=== PATIENT | male | born 1960 | race Caucasian/White ===

== ENCOUNTER → 2018-03-16 15:44 | Outpatient (CLI) | payer MEDICARE, SELFPAY ==
[2018-03-16 17:19] LABS: Absolute Neutrophil Count 2.9 X10^3/uL (2.0-7.7); Basophil# 0.04 X10^3/uL; Basophil% 0.6 % (0-1); Eosinophil# 0.33 X10^3/uL; Eosinophils% 5.3 % (0-5); Hematocrit 38.9 % (40-54); Hemoglobin 13.1 g/dl (13.0-16.5); Lymphocyte % 36.8 % (19-41); Mean Corp Hgb Conc 33.7 g/gl (32-36); Mean Corpuscular Hgb 32.7 pg (27.0-32.0); Mean Platelet Vol. 8.7 fl (6.2-12.0); Monocyte# 0.63 X10^3/uL; Monocyte% 10.1 % (0-10); Neutrophil # 2.94 X10^3/uL (2.7-7.7); Platelet Count 292 K/mm3 (150-450); RBC Distribution Width CV 13.4 % (11.6-14.6); RBC Distribution Width SD 47.7 fl (35.1-43.9); Red Blood Count 4.01 M/mm3 (4.6-6.2); White Blood Count 6.3 K/mm3 (4.4-11.0)
[2018-03-16 17:23] LABS: POSITIVE COUNT NO; POSITIVE DIFFERENTIAL NO; POSITIVE MORPHOLOGY NO
[2018-03-16 18:00] LABS: ALB/GLOB Ratio 0.8 RATIO (0.9-2.4); AST(SGOT) 26 U/L (15-37); Alanine Aminotransfer ALT/SGPT 26 U/L (16-61); Albumin, Serum 3.7 g/dL (3.2-5.0); Alkaline Phosphatase 63 U/L (45-117); Anion Gap 10 (5-15); BUN 6 mg/dL (7-18); BUN/Creat Ratio 8.5 RATIO (10-20); Calcium,Total 8.7 mg/dL (8.5-10.1); Chloride 101 mmol/L (98-107); EST Glomerular Filtration Rate 122 mL/min (>60); Est Glom Filt Rate - Afr Amer 148 mL/min (>60); Globulin 4.5 g/dL (2.2-4.2); Glucose 84 mg/dL (74-106); PSA,Total - Annual Screen 3.37 ng/mL (0.00-4.00); Potassium 3.9 mmol/L (3.5-5.1); Protein, Total 8.2 g/dL (6.4-8.2); Sodium Level 136 mmol/L (136-145); Thyroid Stim Hormone (TSH) 1.48 uIU/mL (0.358-3.74)
[2018-03-17 08:38] LABS: Vitamin D,25 Hydroxy 21.3 ng/mL (29.95-100.01)
[2018-03-18 11:10] LABS: Hep C Antibodies <0.1 s/co ratio (0.0-0.9)
== END ==
PROVIDERS: Family Provider Family Medicine Geriatric Medicine; PCP Family Medicine Geriatric Medicine; Visit Provider Family Medicine Geriatric Medicine
DX: I10 Essential (primary) hypertension (principal); E55.9 Vitamin D deficiency, unspecified; Z12.5 Encounter for screening for malignant neoplasm of prostate; Z13.89 Encounter for screening for other disorder
CPT/HCPCS: 36415; 80053; 82306; 84153; 84443; 85025; 86803; G0103

== ENCOUNTER 2018-08-08 16:38 | Observation (INO) | payer MEDICARE, MEDICAID, SELFPAY ==
[2018-08-08] VITALS (7 sets, daily range): BP systolic 129–159; BP diastolic 83–98; PULSE 81–101; RESP 12–20; TEMP 36.4–36.8; O2SAT 97–99; BMI 26.2; BMI 23.8
[2018-08-08] MEDS: MethylPREDNISolone 125 MG/2 ML Vial IV (16:58)
[2018-08-08] MEDS: 0.9% Normal Saline 1,000 ML 15 ML IV (16:58)
--- NOTE | 2018-08-08 16:58 | ED.VISSUMM ---
- ER Visit Summary Date of Service: 08/08/18 Chief Complaint: Facial swelling History of Present Illness: The patient is a 57 M who noted swelling to the left upper lip that started at noon today. He presents just after 430 for evaluation. He states the only applesauce this morning prior to the onset of swelling and took his normal medications. He denies shortness of breath or throat tightness. He did eat [place] toast to baby aspirin after the onset of swelling. He denies any prior allergic reactions similar to this. He does currently take lisinopril. He states he feels like he is itching all over, but denies rash. Physical Examination: Vital signs unremarkable. Patient sitting upright in bed no acute distress. He speaks with a strong voice. Head neck examination does reveal left upper lip and maxilla edema. Patient is edentulous and intraoral examination is otherwise unremarkable. There is no tongue edema and posterior pharynx exam is normal. Heart is regular rate and rhythm. Lung sounds are clear. Abdomen is soft nontender. Skin examination reveals no rash or lesions Test Results: CBC significant for hemoglobin 10.6. Chemistry studies reveal a sodium of 188 potassium 3.4. Emergency Department Course and Treatment: Patient received IV Benadryl with squad. He was given IV Pepcid and Solu-Medrol here. Patient was reevaluated multiple times. He continues to have slight worsening of his facial swelling because his upper lip and onto the left maxilla. There is no tongue edema or posterior pharyngeal edema. Patient initially refused hospitalization, but after being able to make arrangements to care for his dogs, patient has agreed to admission. Hospitalist is on page. Treatment Plan: [] Disposition: Admit Impression: Angioedema This note was generated with [employer] dictation software. It may contain incorrect words, spelling, and punctuation that were not noted in review of the chart prior to signing ED Disposition - Plan for ED Patient: Chief Complaint: Edema Referrals: Gera Velazco Chi, MD [Primary Care Provider] -
[2018-08-08 17:07] LABS: Absolute Lymphocyte Count 1.52 X10^3/ul (0.83-4.51); Absolute Neutrophil Count 4.1 X10^3/uL (2.0-7.7); Basophil# 0.04 X10^3/uL; Basophil% 0.6 % (0-1); Eosinophils% 1.5 % (0-5); Hematocrit 30.9 % (40-54); Hemoglobin 10.6 g/dl (13.0-16.5); Lymphocyte # 1.52 X10^3/ul (4.0); Lymphocyte % 22.9 % (19-41); Mean Corp Hgb Conc 34.3 g/gl (32-36); Mean Corpuscular Volume 96.3 fL (80-94); Mean Platelet Vol. 7.9 fl (6.2-12.0); Monocyte% 13.6 % (0-10); Neutrophil # 4.07 X10^3/uL (2.7-7.7); Neutrophil % 61.2 % (47-70); POSITIVE COUNT NO; POSITIVE DIFFERENTIAL NO; POSITIVE MORPHOLOGY NO; Platelet Count 392 K/mm3 (150-450); RBC Distribution Width CV 12.5 % (11.6-14.6); RBC Distribution Width SD 43.9 fl (35.1-43.9); Red Blood Count 3.21 M/mm3 (4.6-6.2); White Blood Count 6.6 K/mm3 (4.4-11.0)
[2018-08-08 17:18] LABS: Anion Gap 10 (5-15); BUN 5 mg/dL (7-18); BUN/Creat Ratio 7.7 RATIO (10-20); Calcium,Total 8.7 mg/dL (8.5-10.1); Chloride 91 mmol/L (98-107); Creatinine, Serum 0.65 mg/dL (0.70-1.30); EST Glomerular Filtration Rate 133 mL/min (>60); Est Glom Filt Rate - Afr Amer 160 mL/min (>60); Estimated Creatinine Clearance 134.31 ml/min; Glucose 115 mg/dL (74-106); Potassium 3.4 mmol/L (3.5-5.1); Sodium Level 128 mmol/L (136-145)
--- NOTE | 2018-08-08 20:28 | PCM.HP.STD ---
Problem List (1) Angioedema of lips Status: Acute (2) Hypertension Status: Chronic (3) Hyperlipidemia Status: Acute History of Present Illness Date of Admission: 08/08/18 Chief Complaint: Swelling of lip The patient is a 57 year old M with a significant history of bipolar disorder; anxiety; hyperlipidemia and hypertension on lisinopril who presents with swelling of his left upper lip on the same day of admission. Patient reports progressively worsening of his symptoms. He denies any shortness of breath, tongue swelling or neck swelling. He took his morning lisinopril around 830 to 9 AM on the day of admission. His symptoms began in the early afternoon of the day of admission Patient reports a previous history of hives when he was a child. Past Medical History Past Medical History (Chronic Problems): Chronic Problems (Last Updated 08/08/18 @ 22:21 by Clay Choi MD) Hypertension (Chronic) Medical History: Medical History (Last Updated 08/08/18 @ 22:21 by Clay Choi MD) Anxiety F41.9 Bipolar disorder F31.9 Allergies peanut Allergy (Verified 08/08/18 16:42) Hives Home Medications: Ambulatory Orders Medication Instructions Recorded Fluoxetine [Prozac] 20 mg PO TID 08/06/15 Lisinopril/Hydrochlorothiazide 1 tablet PO DAILY 07/08/17 [Zestoretic 07/30.5 Tablet] Pravastatin Sodium 40 mg PO QHS 07/08/17 Quetiapine Fumarate [Seroquel XR] 400 mg PO QHS 07/08/17 Acamprosate Calcium 666 mg PO BID 08/08/18 Surgical History: - - Pins and plates in left forearm Psychiatric History: Anxiety, Bipolar Lives: Alone Smoking Status: Current every day smoker Alcohol: Heavy - *Family History Paternal Family History: Family History (Last Updated 08/08/18 @ 22:24 by Clay Choi MD) Father Myocardial infarction Mother Stomach cancer Review of Systems Constitutional: Denies: Chills, Fever, Weight Change HEENT: Denies: Head Aches, Sinus Congestion, Sinus Drainage Cardiovascular: Denies: Chest Pain, Palpitations Respiratory: Denies: Cough, Shortness of breath at rest, Sputum production Gastrointestinal: Denies: Abdominal Pain, Nausea, Vomiting Genitourinary: Denies: Dysuria Musculoskeletal: Denies: Joint Pain, Joint Tenderness Skin: Denies: Rash, Wounds Neurological: Denies: Numbness, Tingling, Focal weakness Psychiatric: Denies: Anxiety, Depression, Homicidal Ideations, Suicidal Ideations Hematologic/ Lymphatic: Denies: Easy Bruising, Easy Bleeding VTE Information - Inpt Only VTE Present on Admission: No VTE Mechan Device Prophylaxis: None VTE Pharm Prophylaxis ordered?: Yes Patient Problems: Active and Suspected Problems (Last Updated 08/08/18 @ 22:21 by Clay Choi MD) Angioedema of lips (Acute) Hyperlipidemia (Acute) - Physical Exam General: Alert, Oriented x3, Cooperative HEENT: - - Swelling of left upper lips and maxillary area. Neck: Supple, No JVD, Negative Carotid Bruits Lungs: Clear to auscultation, Normal air movement Cardiovascular: Regular rate, No murmurs Abdomen: Bowel Sounds Present, Soft, Non Tender Extremities: No edema, Capillary Refill Less than 3 Seconds Skin: No rashes, No breakdown Musculoskeletal: No Tenderness to Palpation of Joints or Extremities Neurological: Cranial nerves II-XII grossly intact Psych/Mental Status: Normal Affect, Appropriate Vital Signs Temp Pulse Resp BP Pulse Ox 98.2 F 101 H 12 134/94 H 98 08/08/18 16:39 08/08/18 19:01 08/08/18 19:01 08/08/18 19:01 08/08/18 19:01 Oxygen Delivery Method Room Air Weight: 87.5 kg Body Mass Index (BMI) 26.2 Laboratory Tests Past 24 Hrs 08/08/18 08/08/18 17:00 17:00 WBC 6.6 RBC 3.21 L Hgb 10.6 L Hct 30.9 L MCV 96.3 H MCH 33.0 H MCHC 34.3 RDW 12.5 RDW Differential 43.9 Plt Count 392 MPV 7.9 Immature Gran % (Auto) 0.200 Neut % (Auto) 61.2 Lymph % (Auto) 22.9 [place] % (Auto) 13.6 H Eos % (Auto) 1.5 Baso % (Auto) 0.6 Absolute Neuts (auto) 4.1 Absolute Lymphs (auto) 1.52 Total Counted Not Reportable Sodium 128 L Potassium 3.4 L Chloride 91 L Carbon Dioxide 27.0 Anion Gap 10 BUN 5 L Creatinine 0.65 L Estim Creat Clear Calc 134.31 Est GFR (MDRD) Af Amer 160 Est GFR (MDRD) Non-Af 133 BUN/Creatinine Ratio 7.7 L Glucose 115 H Calcium 8.7 Assessment/Plan All Active Problems (Last Updated 08/08/18 @ 22:21 by Clay Choi MD) Angioedema of lips (Acute) Hyperlipidemia (Acute) The patient is a 57 year old M with a significant history of bipolar disorder; anxiety; hyperlipidemia and hypertension on lisinopril who presents with progressively worsening swelling of his left upper lip which later involved his maxillary area in the setting of KAYLYN inhibitor use . Angioedema Discontinue KAYLYN inhibitor. Discussed with patient that this may be likely to KAYLYN inhibitor. Received Solu-Medrol, Benadryl and Pepcid at emergency department. Since patient reported previous itchiness Benadryl as needed ordered. Steroid not ordered at this time. C1 esterase level not ordered. If symptoms persist consider fresh frozen plasma. Discussed with nurse to do more frequent monitoring about once every hour. If symptoms progress consider airway protection and transferred to ICU. Alcohol dependence. Patient reports drinking about 4 bottles of beer 4-6 times per week. Placed on seizure protocol with thiamine, multivitamin and Ativan. Home Acamprosate calcium held Hyponatremia Sodium level 128 on admission. Likely due to be beer potomania. TSH, cortisol in a.m., serum osmolality and urine osmolality ordered. BMP in a.m. Hypochloremia Associated with hyponatremia as above. Hypokalemia Potassium level 3.4 on admission Mild. Not replaced at this time. Could be due to alcohol abuse. Magnesium level ordered. Repeat BMP in a.m. Tobacco abuse Patient reports smoking pipe. Counseled Nicotine patch ordered. Inpatient consult smoking cessation. Bipolar disorder and anxiety disorder Quetiapine continued Prozac continue Hyperlipidemia Pravastatin continued Code Visit OBSV E&M: 91888 Initial observation care L3
[2018-08-08 22:58] LABS: Osmolality, Serum 265 mOsm/KG (275-295)
[2018-08-08 23:28] LABS: Magnesium 1.4 mg/dL (1.6-2.6)
[2018-08-08] MEDS: QUEtiapine 100 MG Tablet 200 MG PO (23:59)
[2018-08-08] MEDS: Pravastatin 40 MG Tablet PO (23:59)
[2018-08-09] MEDS: FLUoxetine 20 MG Capsule PO ×2 (00:07→06:45)
[2018-08-09 00:39] LABS: Urine Sodium 35 mmol/L (Not Establ.)
[2018-08-09 00:45] LABS: Osmolality, Urine 273 mOsm/KG
[2018-08-09 02:45] VITALS: PULSE 76
[2018-08-09 03:40] VITALS: BP 135/86; PULSE 79; RESP 18; TEMP 37.1; O2SAT 98
[2018-08-09 06:11] LABS: Hematocrit 32.2 % (40-54); Hemoglobin 11.2 g/dl (13.0-16.5); Mean Corp Hgb Conc 34.8 g/gl (32-36); Mean Corpuscular Hgb 33.8 pg (27.0-32.0); Mean Corpuscular Volume 97.3 fL (80-94); Mean Platelet Vol. 8.2 fl (6.2-12.0); Platelet Count 592 K/mm3 (150-450); RBC Distribution Width SD 41.2 fl (35.1-43.9); Red Blood Count 3.31 M/mm3 (4.6-6.2); White Blood Count 5.7 K/mm3 (4.4-11.0)
[2018-08-09 06:20] LABS: Scan Indicated on CBC? Y/N NO
[2018-08-09 06:25] LABS: Anion Gap 8 (5-15); BUN 8 mg/dL (7-18); BUN/Creat Ratio 12.6 RATIO (10-20); Calcium,Total 8.9 mg/dL (8.5-10.1); Chloride 95 mmol/L (98-107); Creatinine, Serum 0.63 mg/dL (0.70-1.30); EST Glomerular Filtration Rate 137 mL/min (>60); Est Glom Filt Rate - Afr Amer 166 mL/min (>60); Estimated Creatinine Clearance 138.57 ml/min; Glucose 134 mg/dL (74-106); Potassium 3.6 mmol/L (3.5-5.1); Sodium Level 130 mmol/L (136-145)
[2018-08-09 07:12] VITALS: PULSE 88
[2018-08-09 08:00] VITALS: O2SAT 93
[2018-08-09 09:30] VITALS: BP 129/80; PULSE 93; RESP 16; TEMP 37; O2SAT 97
[2018-08-09] MEDS: Folic Acid 1 MG Tablet PO (09:41)
[2018-08-09] MEDS: Multivitamins,Ther W-Minerals Tablet 1 TABLET PO (09:41)
[2018-08-09] MEDS: Thiamine Hydrochloride 100 MG Tablet PO (09:41)
[2018-08-09] MEDS: hydroCHLOROthiazide 12.5mg 12.5 MG PO (09:41)
[2018-08-09] MEDS: QUEtiapine 100 MG Tablet 200 MG PO (09:42)
[2018-08-09] MEDS: Magnesium Oxide 400 MG Tablet 800 MG PO (10:34)
[2018-08-09] MEDS: DiphenhydrAMINE 25 MG Capsule PO (10:34)
[2018-08-09 10:39] LABS: Phosphorus 3.9 mg/dL (2.5-4.9); T4 Free Direct 0.87 ng/dL (0.76-1.46)
[2018-08-09 10:55] VITALS: PULSE 90
--- NOTE | 2018-08-09 11:20 | DCINST_ITS ---
- Discharge Diagnoses Current Active Problems: Current Active and Chronic Problems (Last Updated 08/08/18 @ 22:21 by Clay Choi MD) Angioedema of lips (Acute) Hypertension (Chronic) Hyperlipidemia (Acute) You will use the following diet at home:: Cardiac, Other - no alcohol Your food should be the consistency of: Regular Your liquids should be the consistency of: Regular/Thin Discharge Activity: Return to Normal Activity Additional Instructions: Check your blood pressure daily, record the results, and give them to your family physician at follow up. Allergies/Adverse Reactions: Allergies lisinopril Allergy (Verified 08/09/18 09:28) Angioedema peanut Allergy (Verified 08/08/18 16:42) Hives Medications to take at Discharge Fluoxetine [Prozac] 20 mg PO TID 08/06/15 Pravastatin Sodium 40 mg PO QHS 07/08/17 Quetiapine Fumarate [Seroquel XR] 400 mg PO QHS 07/08/17 Acamprosate Calcium 666 mg PO BID 08/08/18 DiphenhydrAMINE [Benadryl] 25 mg PO TID PRN PRN capsule 08/09/18 Hydrochlorothiazide 12.5 mg PO DAILY #30 capsule 08/09/18 The following prescriptions were given: Hydrochlorothiazide 12.5 mg PO DAILY #30 capsule Primary Care Physician: Gera Velazco Chi, MD [Primary Care Provider] - Please follow up with your Primary Care Physician in: 1 week Test Results: Test results from this visit will be discussed in further detail at your follow- up appointment, if applicable. Proposed Discharge Date: 08/09/18
--- NOTE | 2018-08-09 13:48 | PCM.DC.SUM ---
<Davy Pena - Last Filed: 08/09/18 13:48> Discharge Date and Diagnosis Date of Admission: 08/08/18 Date of Discharge: 08/09/18 - Primary Discharge Diagnosis Acute angioedema suspected 2/2 KAYLYN-I use. Alcohol abuse Beer potomania Hypokalemia Hypomagnesemia HTN Nicotine abuse HLD Bipolar disorder - Secondary Discharge Diagnosis Chronic Problems (Last Updated 08/08/18 @ 22:21 by Clay Choi MD) Hypertension (Chronic) Hospital Course and Treatment Operations: None Procedures: None Summary of Care Provided: Physical exam on day of discharge: General: Resting comfortably NAD Psych: A/Ox3 normal affect HEENT: [place]ARR[place] AT NC, mild upper lip swelling Neck: Supple NT CV: RRR no m/t/r/g/h Resp: CTA Abd: [id number] Soft NT no guarding or rigidity Ext: DP2+= no edema Skin: W/D normal turgor Lymph/Heme: No active bleeding or adenopathy Neuro: CN2-12 intact The patient is a 57 year old M with past medical history of bipolar disorder, alcohol abuse, nicotine abuse, hyperlipidemia, hypertension on an KAYLYN inhibitor, who presented to the emergency room with chief complaint of facial swelling mostly in his lips. Swelling started about noon the day of presentation. In the ER it appeared consistent with angioedema and he was given Benadryl, Pepcid, Solu-Medrol. He did not initially have significant improvement and was felt to be warranted for further monitoring as an inpatient, he was admitted to the PCU. Benadryl as needed was continued. He did not require further steroids. By the following morning his swelling had significantly improved and he had no further issues. His blood pressure was controlled with the discontinuation of the lisinopril. His hyponatremia which was felt to be secondary to beer pyromania had improved, his magnesium was low and this was repleted as well. Potassium was repleted as well. He had no further complaints and only mild upper lip swelling and was felt stable for discharge. He was discharged home in stable condition. I advised him to have his pressure checked daily, to record it, and to presented to his PCP at follow-up (1 week) to see if he will have further needs for his blood pressure as his KAYLYN inhibitor was discontinued. Advised him that he may use as needed Benadryl if needed. This patient was seen by Davy Pena PA-C under the supervision of Doctor Rizwan. [] - Physical Exam General: Alert, Oriented x3, Cooperative HEENT: Atraumatic, PERRLA, EOMI, Normocephalic Neck: Supple, No JVD, Negative Carotid Bruits Lungs: Clear to auscultation, Normal air movement Cardiovascular: Regular rate, No murmurs Abdomen: Bowel Sounds Present, Soft, Non Tender Extremities: No edema, Capillary Refill Less than 3 Seconds Skin: No rashes, No breakdown Musculoskeletal: No Tenderness to Palpation of Joints or Extremities Neurological: Cranial nerves II-XII grossly intact Psych/Mental Status: Normal Affect, Appropriate Vital Signs Temp Pulse Resp BP Pulse Ox 98.6 F 90 16 129/80 H 97 08/09/18 09:30 08/09/18 10:55 08/09/18 09:30 08/09/18 09:30 08/09/18 09:30 Oxygen Delivery Method Room Air Weight: 175 lb 4.28 oz Body Mass Index (BMI) 23.8 Intake and Output for Last 24 Hours 08/07/18 08/08/18 08/09/18 23:59 23:59 23:59 Intake Total 120 / 120 Balance 120 / 120 Laboratory Tests Past 24 Hrs 08/08/18 08/08/18 08/08/18 17:00 17:00 22:15 WBC 6.6 RBC 3.21 L Hgb 10.6 L Hct 30.9 L MCV 96.3 H MCH 33.0 H MCHC 34.3 RDW 12.5 RDW Differential 43.9 Plt Count 392 MPV 7.9 Immature Gran % (Auto) 0.200 Neut % (Auto) 61.2 Lymph % (Auto) 22.9 [place] % (Auto) 13.6 H Eos % (Auto) 1.5 Baso % (Auto) 0.6 Absolute Neuts (auto) 4.1 Absolute Lymphs (auto) 1.52 Total Counted Not Reportable Sodium 128 L Potassium 3.4 L Chloride 91 L Carbon Dioxide 27.0 Anion Gap 10 BUN 5 L Creatinine 0.65 L Estim Creat Clear Calc 134.31 Est GFR (MDRD) Af Amer 160 Est GFR (MDRD) Non-Af 133 BUN/Creatinine Ratio 7.7 L Glucose 115 H Serum Osmolality 265 L Calcium 8.7 Phosphorus Magnesium TSH Free T4 Cortisol Urine Osmolality Ur Random Sodium 08/08/18 08/08/18 08/08/18 22:15 23:30 23:30 WBC RBC Hgb Hct MCV MCH MCHC RDW RDW Differential Plt Count MPV Immature Gran % (Auto) Neut % (Auto) Lymph % (Auto) [place] % (Auto) Eos % (Auto) Baso % (Auto) Absolute Neuts (auto) Absolute Lymphs (auto) Total Counted Sodium Potassium Chloride Carbon Dioxide Anion Gap BUN Creatinine Estim Creat Clear Calc Est GFR (MDRD) Af Amer Est GFR (MDRD) Non-Af BUN/Creatinine Ratio Glucose Serum Osmolality Calcium Phosphorus Magnesium 1.4 L TSH 0.30 L Free T4 Cortisol Urine Osmolality 273 Ur Random Sodium 35 08/09/18 08/09/18 08/09/18 05:35 05:35 05:35 WBC 5.7 RBC 3.31 L Hgb 11.2 L Hct 32.2 L MCV 97.3 H MCH 33.8 H MCHC 34.8 RDW 12.0 RDW Differential 41.2 Plt Count 592 H MPV 8.2 Immature Gran % (Auto) Neut % (Auto) Lymph % (Auto) [place] % (Auto) Eos % (Auto) Baso % (Auto) Absolute Neuts (auto) Absolute Lymphs (auto) Total Counted Sodium 130 L Potassium 3.6 Chloride 95 L Carbon Dioxide 27.0 Anion Gap 8 BUN 8 Creatinine 0.63 L Estim Creat Clear Calc 138.57 Est GFR (MDRD) Af Amer 166 Est GFR (MDRD) Non-Af 137 BUN/Creatinine Ratio 12.6 Glucose 134 H Serum Osmolality Calcium 8.9 Phosphorus Magnesium TSH Free T4 Cortisol 3.90 Urine Osmolality Ur Random Sodium 08/09/18 08/09/18 09:36 09:36 WBC RBC Hgb Hct MCV MCH MCHC RDW RDW Differential Plt Count MPV Immature Gran % (Auto) Neut % (Auto) Lymph % (Auto) [place] % (Auto) Eos % (Auto) Baso % (Auto) Absolute Neuts (auto) Absolute Lymphs (auto) Total Counted Sodium Potassium Chloride Carbon Dioxide Anion Gap BUN Creatinine Estim Creat Clear Calc Est GFR (MDRD) Af Amer Est GFR (MDRD) Non-Af BUN/Creatinine Ratio Glucose Serum Osmolality Calcium Phosphorus 3.9 Magnesium TSH Free T4 0.87 Cortisol Urine Osmolality Ur Random Sodium Discharge Diet: Low fat/ Low Cholesterol, 2000 mg Sodium Diet, - - No alcohol Discharge Activity: Return to Normal Activity Home Medications: Medications to take at Discharge Fluoxetine [Prozac] 20 mg PO TID 08/06/15 Pravastatin Sodium 40 mg PO QHS 07/08/17 Quetiapine Fumarate [Seroquel XR] 400 mg PO QHS 07/08/17 Acamprosate Calcium 666 mg PO BID 08/08/18 DiphenhydrAMINE [Benadryl] 25 mg PO TID PRN PRN capsule 08/09/18 Hydrochlorothiazide 12.5 mg PO DAILY #30 capsule 08/09/18 Following Prescrptions Were Given to Patient: Hydrochlorothiazide 12.5 mg PO DAILY #30 capsule Primary Care Physician: Gera Velazco Chi, MD [Primary Care Provider] - Please follow up with your Primary Care Physician in: 1 week Please Follow Up With: Gera Velazco Chi, MD Disposition: Home Medical Necessity - Tobacco Use Smoking Status: Current every day smoker Tobacco Use: Cigars, Pipe Meaningful Use Info Meaningful Use Diagnoses (Choose all that apply): None applicable <Phill Astorga - Last Filed: 08/09/18 16:47> Discharge Date and Diagnosis - Secondary Discharge Diagnosis Chronic Problems (Last Updated 08/08/18 @ 22:21 by Clay Choi MD) Hypertension (Chronic) Hospital Course and Treatment Summary of Care Provided: This patient was seen in conjunction with Davy JAIMES. I have independently interviewed and examined the patient and reviewed pertinent history, examination findings, laboratory and plan of management. I have reviewed the note and agree with the documented findings with the few additional points. In brief, patient is admitted for lip swelling. Patient has been on KAYLYN inhibitor for about 2 years. Patient was treated with Benadryl, Pepcid and Solu-Medrol and lip swelling resolved. Patient is discharged off lisinopril. Advised to follow with PCP. I have discussed my assessment with Davy JAIMES and orders have been reviewed. [] - Physical Exam General: Alert, Oriented x3, Cooperative HEENT: Atraumatic, PERRLA, EOMI, Normocephalic Oral: - - No oropharyngeal swelling. No tongue swelling. Lip swelling has almost resolved Neck: Supple, No JVD, Negative Carotid Bruits, Thyroid Normal Size and Texture Lungs: Clear to auscultation, Normal air movement Cardiovascular: Regular rate, Regular Rhythm, Normal S1, Normal S2, No murmurs Abdomen: Bowel Sounds Present, Soft, Non Tender, Non-Distended Extremities: No edema, Capillary Refill Less than 3 Seconds Skin: No rashes, No breakdown Musculoskeletal: No Tenderness to Palpation of Joints or Extremities Neurological: Cranial nerves II-XII grossly intact Psych/Mental Status: Normal Affect, Appropriate Vital Signs Temp Pulse Resp BP Pulse Ox 98.6 F 90 16 129/80 H 97 08/09/18 09:30 08/09/18 10:55 08/09/18 09:30 08/09/18 09:30 08/09/18 09:30 Oxygen Delivery Method Room Air Weight: 175 lb 4.28 oz Body Mass Index (BMI) 23.8 Intake and Output for Last 24 Hours 08/07/18 08/08/18 08/09/18 23:59 23:59 23:59 Intake Total 120 / 120 Balance 120 / 120 Laboratory Tests Past 24 Hrs 08/08/18 08/08/18 08/08/18 17:00 17:00 22:15 WBC 6.6 RBC 3.21 L Hgb 10.6 L Hct 30.9 L MCV 96.3 H MCH 33.0 H MCHC 34.3 RDW 12.5 RDW Differential 43.9 Plt Count 392 MPV 7.9 Immature Gran % (Auto) 0.200 Neut % (Auto) 61.2 Lymph % (Auto) 22.9 [place] % (Auto) 13.6 H Eos % (Auto) 1.5 Baso % (Auto) 0.6 Absolute Neuts (auto) 4.1 Absolute Lymphs (auto) 1.52 Total Counted Not Reportable Sodium 128 L Potassium 3.4 L Chloride 91 L Carbon Dioxide 27.0 Anion Gap 10 BUN 5 L Creatinine 0.65 L Estim Creat Clear Calc 134.31 Est GFR (MDRD) Af Amer 160 Est GFR (MDRD) Non-Af 133 BUN/Creatinine Ratio 7.7 L Glucose 115 H Serum Osmolality 265 L Calcium 8.7 Phosphorus Magnesium TSH Free T4 Cortisol Urine Osmolality Ur Random Sodium 08/08/18 08/08/18 08/08/18 22:15 23:30 23:30 WBC RBC Hgb Hct MCV MCH MCHC RDW RDW Differential Plt Count MPV Immature Gran % (Auto) Neut % (Auto) Lymph % (Auto) [place] % (Auto) Eos % (Auto) Baso % (Auto) Absolute Neuts (auto) Absolute Lymphs (auto) Total Counted Sodium Potassium Chloride Carbon Dioxide Anion Gap BUN Creatinine Estim Creat Clear Calc Est GFR (MDRD) Af Amer Est GFR (MDRD) Non-Af BUN/Creatinine Ratio Glucose Serum Osmolality Calcium Phosphorus Magnesium 1.4 L TSH 0.30 L Free T4 Cortisol Urine Osmolality 273 Ur Random Sodium 35 08/09/18 08/09/18 08/09/18 05:35 05:35 05:35 WBC 5.7 RBC 3.31 L Hgb 11.2 L Hct 32.2 L MCV 97.3 H MCH 33.8 H MCHC 34.8 RDW 12.0 RDW Differential 41.2 Plt Count 592 H MPV 8.2 Immature Gran % (Auto) Neut % (Auto) Lymph % (Auto) [place] % (Auto) Eos % (Auto) Baso % (Auto) Absolute Neuts (auto) Absolute Lymphs (auto) Total Counted Sodium 130 L Potassium 3.6 Chloride 95 L Carbon Dioxide 27.0 Anion Gap 8 BUN 8 Creatinine 0.63 L Estim Creat Clear Calc 138.57 Est GFR (MDRD) Af Amer 166 Est GFR (MDRD) Non-Af 137 BUN/Creatinine Ratio 12.6 Glucose 134 H Serum Osmolality Calcium 8.9 Phosphorus Magnesium TSH Free T4 Cortisol 3.90 Urine Osmolality Ur Random Sodium 08/09/18 08/09/18 09:36 09:36 WBC RBC Hgb Hct MCV MCH MCHC RDW RDW Differential Plt Count MPV Immature Gran % (Auto) Neut % (Auto) Lymph % (Auto) [place] % (Auto) Eos % (Auto) Baso % (Auto) Absolute Neuts (auto) Absolute Lymphs (auto) Total Counted Sodium Potassium Chloride Carbon Dioxide Anion Gap BUN Creatinine Estim Creat Clear Calc Est GFR (MDRD) Af Amer Est GFR (MDRD) Non-Af BUN/Creatinine Ratio Glucose Serum Osmolality Calcium Phosphorus 3.9 Magnesium TSH Free T4 0.87 Cortisol Urine Osmolality Ur Random Sodium Meaningful Use Info Meaningful Use Diagnoses (Choose all that apply): None applicable Code Visit OBSV E&M: 10876 Observation care discharge
== END 2018-08-09 11:20 | disposition home or self-care (01) ==
LOC: ED 16:59 → PCU 21:10
PROVIDERS: Physician Assistant; Admitting Provider Hospitalist; Emergency Provider Emergency Medicine; Family Provider Family Medicine Geriatric Medicine; PCP Family Medicine Geriatric Medicine; Visit Provider Internal Medicine
DX: T78.3XXA Angioneurotic edema, initial encounter (principal); I10 Essential (primary) hypertension; E78.5 Hyperlipidemia, unspecified; Z79.899 Other long term (current) drug therapy; F31.9 Bipolar disorder, unspecified; F41.9 Anxiety disorder, unspecified; F10.20 Alcohol dependence, uncomplicated; E87.1 Hypo-osmolality and hyponatremia; E87.6 Hypokalemia; F17.290 Nicotine dependence, other tobacco product, uncomplicated
CPT/HCPCS: 36415; 80048; 82533; 83735; 83930; 83935; 84100; 84300; 84439; 84443; 85025; 85027; 96374; 96375; 99218; 99251; 99285; 99406; J7030; A4216; G0378; G0463; J3490

== ENCOUNTER → 2018-08-12 13:34 | Outpatient (CLI) | payer MEDICARE, SELFPAY ==
[2018-08-12 14:17] LABS: Anion Gap 9 (5-15); BUN 7 mg/dL (7-18); BUN/Creat Ratio 10.4 RATIO (10-20); Calcium,Total 9.2 mg/dL (8.5-10.1); Chloride 93 mmol/L (98-107); Creatinine, Serum 0.68 mg/dL (0.70-1.30); EST Glomerular Filtration Rate 127 mL/min (>60); Est Glom Filt Rate - Afr Amer 154 mL/min (>60); Glucose 106 mg/dL (74-106); Potassium 3.6 mmol/L (3.5-5.1); Sodium Level 130 mmol/L (136-145)
== END ==
PROVIDERS: Family Provider Family Medicine Geriatric Medicine; PCP Family Medicine Geriatric Medicine; Visit Provider Family Medicine Geriatric Medicine
DX: E87.1 Hypo-osmolality and hyponatremia (principal)
CPT/HCPCS: 36415; 80048

== ENCOUNTER 2018-11-04 15:13 | Emergency (ER) | payer MEDICARE, MEDICAID, SELFPAY ==
--- NOTE | 2018-11-04 15:10 | EKG12_ITS ---
Test Reason : CP Blood Pressure : / mmHG Vent. Rate : 105 BPM Atrial Rate : 105 BPM P-R Int : 176 ms QRS Dur : 080 ms QT Int : 368 ms P-R-T Axes : 024 -02 036 degrees QTc Int : 486 ms Sinus tachycardia Otherwise normal ECG Confirmed by WALTER GARCIA, HIRO ([id number]), editor managing newspaper LORNA HONG ([id number] on 11/08/2018 9:19:53 AM Referred By: JEANNINE Confirmed By:HIRO WATSON MD
[2018-11-04 15:14] VITALS: BP 201/98; PULSE 103; RESP 16; TEMP 36.6; O2SAT 99; BMI 25.5
[2018-11-04 15:26] VITALS: BP 154/97; BP 156/96; BP 170/100; PULSE 104; PULSE 96; PULSE 99
--- NOTE | 2018-11-04 15:27 | RAD_ITS ---
STUDY: X-RAY - RIGHT HAND REASON FOR EXAM: Male, 58 years old. Pain following injury. TECHNIQUE: 3 view(s) of the hand. COMPARISON: None. FINDINGS: Normal radiocarpal articulation. Normal distal radioulnar joint. Normal visualized carpal bones. Normal carpal articulations Normal carpometacarpal articulation of the thumb. Normal second through fifth carpometacarpal joints. Normal metacarpi. Normal metacarpophalangeal joint of the thumb. Normal interphalangeal joint of the thumb. Normal proximal and distal phalanges of the thumb. Normal metacarpophalangeal joints of the second through fifth fingers. Normal proximal and distal interphalangeal joints of the second through fifth fingers. Normal phalanges of the second through fifth fingers. The soft tissue structures are unremarkable. RAD/Hand Min 3 Views IMPRESSION: Normal x-ray examination of the hand. Electronically Signed: Emmanuel Craig MD at 15:59 EST Tel [phone], Service support ,
--- NOTE | 2018-11-04 15:27 | RAD_ITS ---
STUDY: X-RAY CHEST REASON FOR EXAM: Male, 58 years old. Chest trauma. TECHNIQUE: PA and lateral views of the chest. COMPARISON: None. FINDINGS: EKG electrodes are seen. Hyperinflation. Mild degree of increased markings in the right middle lobe. This may represent either linear scarring or atelectasis. There is no demonstrated pleural abnormality. Normal size heart. Normal mediastinum and krista. Normal visualized pulmonary arteries. Normal visualized aortic arch and descending thoracic aorta. There is demineralization of the osseous structures. Normal visualized ribs, clavicles, and shoulders. There is no demonstrated abnormality of the visualized soft tissue structures of the upper abdomen. RAD/Chest PA and Lateral IMPRESSION: Mild degree of increased markings in the right middle lobe suggestive of atelectasis and/or scarring. Electronically Signed: Emmanuel Craig MD at 15:58 EST Tel [phone], Service support ,
[2018-11-04 15:29] VITALS: BP 201/98; PULSE 103; RESP 22; O2SAT 99
[2018-11-04 15:42] LABS: Absolute Lymphocyte Count 1.91 X10^3/ul (0.83-4.51); Absolute Neutrophil Count 5.6 X10^3/uL (2.0-7.7); Basophil# 0.02 X10^3/uL; Basophil% 0.2 % (0-1); Eosinophil# 0.18 X10^3/uL; Eosinophils% 2.2 % (0-5); Hematocrit 39.6 % (40-54); Hemoglobin 13.8 g/dl (13.0-16.5); Lymphocyte # 1.91 X10^3/ul (4.0); Lymphocyte % 22.8 % (19-41); Mean Corp Hgb Conc 34.8 g/gl (32-36); Mean Corpuscular Hgb 32.9 pg (27.0-32.0); Mean Corpuscular Volume 94.5 fL (80-94); Mean Platelet Vol. 8.9 fl (6.2-12.0); Monocyte# 0.63 X10^3/uL; Monocyte% 7.5 % (0-10); Neutrophil # 5.61 X10^3/uL (2.7-7.7); Neutrophil % 67.1 % (47-70); Platelet Count 149 K/mm3 (150-450); RBC Distribution Width CV 13.4 % (11.6-14.6); RBC Distribution Width SD 44.6 fl (35.1-43.9); Red Blood Count 4.19 M/mm3 (4.6-6.2); White Blood Count 8.4 K/mm3 (4.4-11.0)
[2018-11-04 15:46] LABS: POSITIVE COUNT NO; POSITIVE DIFFERENTIAL NO; POSITIVE MORPHOLOGY NO
[2018-11-04 15:51] LABS: Anion Gap 12 (5-15); BUN 11 mg/dL (7-18); BUN/Creat Ratio 13.5 RATIO (10-20); Calcium,Total 9.2 mg/dL (8.5-10.1); Chloride 92 mmol/L (98-107); Creatinine, Serum 0.81 mg/dL (0.70-1.30); EST Glomerular Filtration Rate 103 mL/min (>60); Est Glom Filt Rate - Afr Amer 125 mL/min (>60); Estimated Creatinine Clearance 106.45 ml/min; Glucose 113 mg/dL (74-106); Potassium 3.2 mmol/L (3.5-5.1); Sodium Level 128 mmol/L (136-145)
[2018-11-04] MEDS: Morphine 4 MG/ML Syringe IV (15:53)
[2018-11-04 16:00] VITALS: BP 167/97; PULSE 92; RESP 16; O2SAT 100
--- NOTE | 2018-11-04 16:09 | ED.VISSUMM ---
- ER Visit Summary Date of Service: 11/04/18 Chief Complaint: Fall and chest pain History of Present Illness: The patient is a [address] Velazco. He reports that he has had difficulty ambulating for approximately 1 year. Reports he is fallen 3-4 times in the past week. Last time he fell was 3 nights ago. He states that he rolled off his couch onto the coffee table and the corner of it hit him in the chest. He complains of chest pain that is 9 out of 10 with movement and 1 out of 10 at rest. Patient reports he also has pain to his right middle finger that is 6 out of 10 severity. He denies any blow to the head or loss of consciousness. No shoulder, wrist, or hip pain. Physical Examination: Vitals: Stable. Afebrile. Neck: No vertebral tenderness. Full ROM without difficulty. Cleared by NEXUS criteria. Back: No vertebral tenderness. General: A&O x 3. NAD. Cardiovascular exam: Regular rate and rhythm, no murmur, rub or gallop. Respiratory exam: Moderate tenderness palpation over his sternum and the costochondral margin bilaterally. This does reproduce his pain. No pain with lateral compression of his chest.. No crepitus. Clear to auscultation bilaterally. No wheezes or stridor. Abdominal exam: Soft, nontender, nondistended, normal bowel sounds. No pain in RUQ or LUQ specifically. No peritoneal signs. Extremity: Mild tenderness palpation over the right third finger. No contusion or soft tissue swelling. He is neurovascular intact. No pain with range of motion. Test Results: CBC is more for platelets 149. Chem-7 is more for sodium of 128, potassium 3.2, chloride of 92, glucose of 113. His sodium has ranged between 128-130 since July of last year. He is on hydrochlorothiazide. Emergency Department Course and Treatment: Patient was treated with morphine and is resting comfortably. He was able to ambulate about the emerge part without difficulty. He feels well and would like to go home. Treatment Plan: Patient be discharged prescription for 10 [place]. Instructed to follow-up with Dr. Velazco in 3-5 days if not improving. Return to the emergency department for any worsening symptoms. Disposition: To home in improved and stable condition. Impression: 1. Repeated falls. 2. Chest wall contusion. 3. Mild hyponatremia, chronic, on hydrochlorothiazide. This note was generated with [employer] dictation software. It may contain incorrect words, spelling, and punctuation that were not noted in review of the chart prior to signing ED Disposition - Plan for ED Patient: Chief Complaint: Chest Pain Instructions: ED Contusion Chest Wall Prescriptions: Hydrocodone Bitart/Apap 5-325 [[place] 5MG-325MG] 1 tablet PO Q4H PRN PRN 2 Days #10 tablet PRN Reason: Pain Referrals: Gera Velazco Chi, MD [Primary Care Provider] - 3-5 Days if not improving
--- NOTE | 2018-11-04 16:15 | ED.DCSUM_ITS ---
- ER Visit Summary Date of Service: 11/04/18 Chief Complaint: Fall and chest pain History of Present Illness: The patient is a [address] Velazco. He reports that he has had difficulty ambulating for approximately 1 year. Reports he is fallen 3-4 times in the past week. Last time he fell was 3 nights ago. He states that he rolled off his couch onto the coffee table and the corner of it hit him in the chest. He complains of chest pain that is 9 out of 10 with movement and 1 out of 10 at rest. Patient reports he also has pain to his right middle finger that is 6 out of 10 severity. He denies any blow to the head or loss of consciousness. No shoulder, wrist, or hip pain. Physical Examination: Vitals: Stable. Afebrile. Neck: No vertebral tenderness. Full ROM without difficulty. Cleared by NEXUS criteria. Back: No vertebral tenderness. General: A&O x 3. NAD. Cardiovascular exam: Regular rate and rhythm, no murmur, rub or gallop. Respiratory exam: Moderate tenderness palpation over his sternum and the costochondral margin bilaterally. This does reproduce his pain. No pain with lateral compression of his chest.. No crepitus. Clear to auscultation bilaterally. No wheezes or stridor. Abdominal exam: Soft, nontender, nondistended, normal bowel sounds. No pain in RUQ or LUQ specifically. No peritoneal signs. Extremity: Mild tenderness palpation over the right third finger. No contusion or soft tissue swelling. He is neurovascular intact. No pain with range of motion. Test Results: CBC is more for platelets 149. Chem-7 is more for sodium of 128, potassium 3.2, chloride of 92, glucose of 113. His sodium has ranged between 12 8-130 since July of last year. He is on hydrochlorothiazide. Emergency Department Course and Treatment: Patient was treated with morphine and is resting comfortably. He was able to ambulate about the emerge part without difficulty. He feels well and would like to go home. Treatment Plan: Patient be discharged prescription for 10 [place]. Instructed to follow-up with Dr. Velazco in 3-5 days if not improving. Return to the emergency department for any worsening symptoms. Disposition: To home in improved and stable condition. Impression: 1. Repeated falls. 2. Chest wall contusion. 3. Mild hyponatremia, chronic, on hydrochlorothiazide. This note was generated with [employer] dictation software. It may contain incorrect words, spelling, and punctuation that were not noted in review of the chart prior to signing ED Disposition - Plan for ED Patient: Chief Complaint: Chest Pain Instructions: ED Contusion Chest Wall Prescriptions: Hydrocodone Bitart/Apap 5-325 [[place] 5MG-325MG] 1 tablet PO Q4H PRN PRN 2 Days #10 tablet PRN Reason: Pain Referrals: Gera Velazco Chi, MD [Primary Care Provider] - 3-5 Days if not improving
[2018-11-04 16:58] VITALS: BP 138/59; PULSE 72; RESP 15; O2SAT 96
--- OUTSIDE RECORDS SUMMARY | 2019-01-09 12:16 | XMS RPT_ITS ---
:1960 Author Organization [facility] Care Team Providers Name Role Phone Juan A, Gera Chi Primary Care Unavailable Galen Land Attending Unavailable Clya Choi Admitting Unavailable AgyepongClay Attending Unavailable Juan A, Gera Chi Primary Care Unavailable Rizwan, Phill Consulting Unavailable Juan A, Gera Chi Attending Unavailable Juan A, Gera Chi Primary Care Unavailable Agyepong, Clay Admitting Unavailable Juan A, Gera Chi Primary Care Unavailable Rizwan, Phill Consulting Unavailable Rizwan, Phill Attending Unavailable Juan A, Gera Chi Primary Care Unavailable Agyepong, Clay Admitting Unavailable Rizwan, Phill Attending Unavailable Juan A, Gera Chi Attending Unavailable Juan A, Gera Chi Primary Care Unavailable Juan A, Gera Chi Attending Unavailable Juan A, Gera Chi Primary Care Unavailable PROBLEMS PROBLEMS DATE TYPE CONDITION / CODE ATTENDING STATUS SOURCE 11/04/2018 Unknown S20.219A - Galen Land Active Lev Contusion of Community unspecified front Hospital wall of thorax, Repository initial encounter / S20.219A(ICD-10) 09/27/2018 Unknown R22.0 - Localized Phill Astorga Active [place] swelling, mass Community and lump, head / Hospital R22.0(ICD-10) Repository PROCEDURES PROCEDURES No Procedure Records FoundRESULTS RESULTS BASIC METABOLIC Collected: 11/10/2018 Status: F Source: LEV PROFILE (BMP) 4:53 PM [facility] [place] TYPE CODE TESTS RESULT OUT OF RANGE REFERENCE UNITS LAB L501.0100 74-106 mg/dL Normal GLU 94 Result Comment: Please note revised GLUCOSE reference range effective 2017. LAB L501.1000 7-18 mg/dL Low BUN 6 LAB L501.1100 0.70-1.30 mg/dL Low CREAT,SERUM 0.62 Result Comment: The validity of the calculated GFR AND GFRAA in patients over 70 years has not been determined. Clinical correlation is essential. LAB L501.1110 >60 mL/min Normal EST GFR 142 Result Comment: Non- GFR Calc LAB L501.1115 >60 mL/min Normal EST GFR - AA 171 Result Comment: GFR Calc LAB L501.1300 10-20 RATIO Low BUN/CRE 9.7 LAB L501.2200 8.5-10.1 mg/dL Normal CA 9.2 LAB L501.5300 136-145 mmol/L Low NA 130 LAB L501.5600 3.5-5.1 mmol/L Normal K 3.7 LAB L501.5900 98-107 mmol/L Low CL 93 LAB L501.6100 21.0-32.0 mmol/L Normal CO2 26.0 LAB L501.6200 5-15 Normal GAP 11 Performed By: #### L500.2500 #### [facility] [address] [facility] [place], [address] 12 LEAD ELECTROCARDIOGRAM Observed: 11/08/2018 Status: F Source: LEV 9:20 AM [facility] [place] [facility] [facility] Cardiovascular Services [address] [place] [address] 12 Lead EKG 11/04/18 1513 MR#: [id number] Acct: [id number] Name: HERB RICHARDS Rep #: [id number] : 1960 58 From: Mike Young MD Attending Dr: Status: DEP ER Ordering Dr: AYDEE Reed MD Date: 11/04/18 Location: ED Sex: M C Admitted: Test Reason : CP Blood Pressure : / mmHG Vent. Rate : 105 BPM Atrial Rate : 105 BPM P-R Int : 176 ms QRS Dur : 080 ms QT Int : 368 ms P-R-T Axes : 024 -02 036 degrees QTc Int : 486 ms Sinus tachycardia Otherwise normal ECG Confirmed by MIKE YOUNG MD ([id number]), city editor LORNA HONG ([id number]) on 11/08/2018 9:19:53 AM Referred By: JEANNINE Confirmed By:MIKE YOUNG MD 11/08/18919 Date Mike Young MD CC: ED DoctorMD; Galen Land MD; Gera Velazco MD Signed EMERGENCY DEPARTMENT Observed: 11/05/2018 Status: F Source: [place] SUMMARY 12:13 AM [facility] [place] [facility] [facility] Medical Records Department [address] [facility] [place] [address] Emergency Department Summary 11/04/18 1609 MR#: [id number] Acct: [id number] Name: HERB RICHARDS Rep #: [id number] : 1960 58 From: Galen Land MD PCP: Gera Velazco MD, Chi Status: DEP ER - ER Visit Summary Date of Service: 11/04/18 Chief Complaint: Fall and chest pain History of Present Illness: The patient is a [address] Velazco. He reports that he has had difficulty ambulating for approximately 1 year. Reports he is fallen 3-4 times in the past week. Last time he fell was 3 nights ago. He states that he rolled off his couch onto the coffee table and the corner of it hit him in the chest. He complains of chest pain that is 9 out of 10 with movement and 1 out of 10 at rest. Patient reports he also has pain to his right middle finger that is 6 out of 10 severity. He denies any blow to the head or loss of consciousness. No shoulder, wrist, or hip pain. Physical Examination: Vitals: Stable. Afebrile. Neck: No vertebral tenderness. Full ROM without difficulty. Cleared by NEXUS criteria. Back: No vertebral tenderness. General: A AND O x 3. NAD. Cardiovascular exam: Regular rate and rhythm, no murmur, rub or gallop. Respiratory exam: Moderate tenderness palpation over his sternum and the costochondral margin bilaterally. This does reproduce his pain. No pain with lateral compression of his chest.. No crepitus. Clear to auscultation bilaterally. No wheezes or stridor. Abdominal exam: Soft, nontender, nondistended, normal bowel sounds. No pain in RUQ or LUQ specifically. No peritoneal signs. Extremity: Mild tenderness palpation over the right third finger. No contusion or soft tissue swelling. He is neurovascular intact. No pain with range of motion. Test Results: CBC is more for platelets 149. Chem-7 is more for sodium of 128, potassium 3.2, chloride of 92, glucose of 113. His sodium has ranged between 128-130 since July of last year. He is on hydrochlorothiazide. Emergency Department Course and Treatment: Patient was treated with morphine and is resting comfortably. He was able to ambulate about the emerge part without difficulty. He feels well and would like to go home. Treatment Plan: Patient be discharged prescription for 10 [place]. Instructed to follow-up with Dr. Velazco in 3-5 days if not improving. Return to the emergency department for any worsening symptoms. Disposition: To home in improved and stable condition. Impression: 1. Repeated falls. 2. Chest wall contusion. 3. Mild hyponatremia, chronic, on hydrochlorothiazide. This note was generated with [employer] dictation software. It may contain incorrect words, spelling, and punctuation that were not noted in review of the chart prior to signing ED Disposition - Plan for ED Patient: Chief Complaint: Chest Pain Instructions: ED Contusion Chest Wall Prescriptions: Hydrocodone Bitart/Apap 5-325 [[place] 5MG-325MG] 1 tablet PO Q4H PRN PRN 2 Days #10 tablet PRN Reason: Pain Referrals: Gera Velazco Chi, MD [Primary Care Provider] - 3-5 Days if not improving What to do if you have Problems For any increased pain, shortness of breath, bleeding, nausea or vomiting, chest pain, or any unexpected problems, contact your Primary Care Provider. Call [facility] ([phone]) or report to the closest Emergency Room. Call 911 if necessary. 11/05/18 0013 <Electronically signed by Galen Land MD> Date Galen Land MD Cosigner Signature (If Indicated): Date CC: Gera Velazco MD CHEST PA AND LATERAL Observed: 11/04/2018 Status: F Source: [place] 3:28 PM [facility] [place] [facility] Imaging Services [address] [place] [address] Chest PA and Lateral MR#: [id number] Acct: [id number] Name: HERB RICHARDS Rep #: [id number] : 1960 58 From: Emmanuel Craig MD PCP: Gera Velazco MD, Chi Status: PRE ER Study: Chest PA and Lateral Date of Exam: 11/04/18 Exam# [id number] Ordering Dr: Galen Land MD STUDY: X-RAY CHEST REASON FOR EXAM: Male, 58 years old. Chest trauma. TECHNIQUE: PA and lateral views of the chest. COMPARISON: None. FINDINGS: EKG electrodes are seen. Hyperinflation. Mild degree of increased markings in the right middle lobe. This may represent either linear scarring or atelectasis. There is no demonstrated pleural abnormality. Normal size heart. Normal mediastinum and krista. Normal visualized pulmonary arteries. Normal visualized aortic arch and descending thoracic aorta. There is demineralization of the osseous structures. Normal visualized ribs, clavicles, and shoulders. There is no demonstrated abnormality of the visualized soft tissue structures of the upper abdomen. RAD/Chest PA and Lateral IMPRESSION: Mild degree of increased markings in the right middle lobe suggestive of atelectasis and/or scarring. Electronically Signed: Emmanuel Craig MD at 15:58 EST Tel [phone], Service support , CC: Galen Land MD; Gera Velazco MD Fisher Gill Net: Signed HAND MIN 3 VIEWS Observed: 11/04/2018 Status: F Source: [place] 3:28 PM [facility] [place] [facility] Imaging Services [address] [place] [address] Hand Min 3 Views MR#: [id number] Acct: [id number] Name: HERB RICHARDS Rep #: [id number] : 1960 58 From: Emmanuel Craig MD PCP: Gera Velazco MD, Chi Status: PRE ER Study: Hand Min 3 Views Date of Exam: 11/04/18 Exam# [id number] Ordering Dr: Galen Land MD STUDY: X-RAY - RIGHT HAND REASON FOR EXAM: Male, 58 years old. Pain following injury. TECHNIQUE: 3 view(s) of the hand. COMPARISON: None. FINDINGS: Normal radiocarpal articulation. Normal distal radioulnar joint. Normal visualized carpal bones. Normal carpal articulations Normal carpometacarpal articulation of the thumb. Normal second through fifth carpometacarpal joints. Normal metacarpi. Normal metacarpophalangeal joint of the thumb. Normal interphalangeal joint of the thumb. Normal proximal and distal phalanges of the thumb. Normal metacarpophalangeal joints of the second through fifth fingers. Normal proximal and distal interphalangeal joints of the second through fifth fingers. Normal phalanges of the second through fifth fingers. The soft tissue structures are unremarkable. RAD/Hand Min 3 Views IMPRESSION: Normal x-ray examination of the hand. Electronically Signed: Emmanuel Craig MD at 15:59 EST Tel [phone], Service support , CC: Galen Land MD; Gera Velazco MD Fisher Gill Net: Signed CBC W/DIFF, AUTOMATED Collected: 11/04/2018 Status: F Source: LEV 3:15 PM [facility] [place] TYPE CODE TESTS RESULT OUT OF RANGE REFERENCE UNITS LAB L100.1000 4.4-11.0 K/mm3 Normal WBC 8.4 LAB L100.1200 4.6-6.2 M/mm3 Low RBC 4.19 LAB L100.1300 13.0-16.5 g/dl Normal HGB 13.8 LAB L100.1400 40-54 % Low HCT 39.6 LAB L100.1500 80-94 fL High MCV 94.5 LAB L100.1600 27.0-32.0 pg High MCH 32.9 LAB L100.1700 32-36 g/gl Normal MCHC 34.8 LAB L100.1810 11.6-14.6 % Normal RDW CV 13.4 LAB L100.1820 35.1-43.9 fl High RDW SD 44.6 LAB L100.1900 150-450 K/mm3 Low PLT 149 LAB L100.2000 6.2-12.0 fl Normal MPV 8.9 LAB L100.2100 47-70 % Normal NEUT% 67.1 LAB L100.2200 19-41 % Normal LY% 22.8 LAB L100.2300 0-10 % Normal MONO% 7.5 LAB L100.2400 0-5 % Normal EO% 2.2 LAB L100.2500 0-1 % Normal BASO% 0.2 LAB L100.2550 0.0-0.9 % Normal IM GRAN % 0.200 Result Comment: IG% - Immature Granulocytes (promyelocytes, myelocytes and metamyelocytes) > 1% indicates that a LEFT SHIFT is Present. LAB L100.2620 2.0-7.7 X10 3/uL Normal Absolute Neut 5.6 LAB L100.2720 0.83-4.51 X10 3/ul Normal Absolute Lymph 1.91 Performed By: #### L100.0100 #### [facility] [address] [facility] [facility] [place], [place], [address] BASIC METABOLIC Collected: 11/04/2018 Status: F Source: LEV PROFILE (BMP) 3:15 PM [facility] [place] TYPE CODE TESTS RESULT OUT OF RANGE REFERENCE UNITS LAB L501.0100 74-106 mg/dL High GLU 113 Result Comment: Fasting Glucose result from 100 to 125 mg/dL suggests IMPAIRED HOMEOSTASIS per A.D.A. criteria. Please note revised GLUCOSE reference range effective 2017. LAB L501.1000 7-18 mg/dL Normal BUN 11 LAB L501.1100 0.70-1.30 mg/dL Normal CREAT,SERUM 0.81 Result Comment: The validity of the calculated GFR AND GFRAA in patients over 70 years has not been determined. Clinical correlation is essential. LAB L501.1110 >60 mL/min Normal EST GFR 103 Result Comment: Non- GFR Calc LAB L501.1115 >60 mL/min Normal EST GFR - AA 125 Result Comment: GFR Calc LAB L501.1255 ml/min Normal Estimated CRCL 106.45 LAB L501.1300 10-20 RATIO BUN/CRE Normal 13.5 LAB L501.2200 8.5-10 mg/dL .1 CA Normal 9.2 LAB L501.5300 136-14 mmol/L Low 5 NA 128 LAB L501.5600 3.5-5. mmol/L Low 1 K 3.2 LAB L501.5900 98-107 mmol/L Low CL 92 LAB L501.6100 21.0-3 mmol/L 2.0 CO2 Normal 24.0 LAB L501.6200 5-15 GAP Normal 12 Performed By: #### L500.2500 #### [facility] [address] [facility] [place], [address] BASIC METABOLIC Collected: 08/12/2018 Status: F Source: [place] PROFILE (BMP) 1:36 PM [facility] [place] TYPE CODE TESTS RESULT OUT OF RANGE REFERENCE UNITS LAB L501.0100 74-106 mg/dL Normal GLU 106 Result Comment: Fasting Glucose result from 100 to 125 mg/dL suggests IMPAIRED HOMEOSTASIS per A.D.A. criteria. Please note revised GLUCOSE reference range effective 2017. LAB L501.1000 7-18 mg/dL Normal BUN 7 LAB L501.1100 0.70-1.30 mg/dL Low CREAT,SERUM 0.68 Result Comment: The validity of the calculated GFR AND GFRAA in patients over 70 years has not been determined. Clinical correlation is essential. LAB L501.1110 >60 mL/min Normal EST GFR 127 Result Comment: Non- GFR Calc LAB L501.1115 >60 mL/min Normal EST GFR - AA 154 Result Comment: GFR Calc LAB L501.1300 10-20 RATIO Normal BUN/CRE 10.4 LAB L501.2200 8.5-10.1 mg/dL CA Normal 9.2 LAB L501.5300 136-145 mmol/L Low NA 130 LAB L501.5600 3.5-5.1 mmol/L K Normal 3.6 LAB L501.5900 98-107 mmol/L Low CL 93 LAB L501.6100 21.0-32.0 mmol/L Normal CO2 28.0 LAB L501.6200 5-15 Normal GAP 9 Performed By: #### L500.2500 #### [facility] [address] [place], [address] DISCHARGE SUMMARY Observed: 08/09/2018 Status: F Source: LEV 4:47 PM [facility] [place] [facility] Medical Records Department [address] [place] [address] Discharge Summary 08/09/18 1348 MR#: [id number] Acct: [id number] Name: HERB RICHARDS Rep #: [id number] : 1960 57 From: Davy JAIMES PCP: Juan A GARCIA,Gera Diana Status: DIS SHERWIN Y Location: [place] [id number] <Davy Pena - Last Filed: 08/09/18 13:48> Discharge Date and Diagnosis Date of Admission: 08/08/18 Date of Discharge: 08/09/18 - Primary Discharge Diagnosis Acute angioedema suspected 2/2 KAYLYN-I use. Alcohol abuse Beer potomania Hypokalemia Hypomagnesemia HTN Nicotine abuse HLD Bipolar disorder - Secondary Discharge Diagnosis Chronic Problems (Last Updated 08/08/18 @ 22:21 by Clay Choi MD) Hypertension (Chronic) Hospital Course and Treatment Operations: None Procedures: None Summary of Care Provided: Physical exam on day of discharge: General: Resting comfortably NAD Psych: A/Ox3 normal affect HEENT: PEARRLA AT NC, mild upper lip swelling Neck: Supple NT CV: RRR no m/t/r/g/h Resp: CTA Abd: NABSX4 Soft NT no guarding or rigidity Ext: DP2+= no edema Skin: W/D normal turgor Lymph/Heme: No active bleeding or adenopathy Neuro: CN2-12 intact The patient is a 57 year old M with past medical history of bipolar disorder, alcohol abuse, nicotine abuse, hyperlipidemia, hypertension on an KAYLYN inhibitor, who presented to the emergency room with chief complaint of facial swelling mostly in his lips. Swelling started about noon the day of presentation. In the ER it appeared consistent with angioedema and he was given Benadryl, Pepcid, Solu-Medrol. He did not initially have significant improvement and was felt to be warranted for further monitoring as an inpatient, he was admitted to the PCU. Benadryl as needed was continued. He did not require further steroids. By the following morning his swelling had significantly improved and he had no further issues. His blood pressure was controlled with the discontinuation of the lisinopril. His hyponatremia which was felt to be secondary to beer pyromania had improved, his magnesium was low and this was repleted as well. Potassium was repleted as well. He had no further complaints and only mild upper lip swelling and was felt stable for discharge. He was discharged home in stable condition. I advised him to have his pressure checked daily, to record it, and to presented to his PCP at follow-up (1 week) to see if he will have further needs for his blood pressure as his KAYLYN inhibitor was discontinued. Advised him that he may use as needed Benadryl if needed. This patient was seen by Davy Pena PA-C under the supervision of Doctor Rizwan. [] - Physical Exam General: Alert, Oriented x3, Cooperative HEENT: Atraumatic, PERRLA, EOMI, Normocephalic Neck: Supple, No JVD, Negative Carotid Bruits Lungs: Clear to auscultation, Normal air movement Cardiovascular: Regular rate, No murmurs Abdomen: Bowel Sounds Present, Soft, Non Tender Extremities: No edema, Capillary Refill Less than 3 Seconds Skin: No rashes, No breakdown Musculoskeletal: No Tenderness to Palpation of Joints or Extremities Neurological: Cranial nerves II-XII grossly intact Psych/Mental Status: Normal Affect, Appropriate Vital Signs Temp Pulse Resp BP Pulse Ox 98.6 F 90 16 129/80 H 97 08/09/18 09:30 08/09/18 10:55 08/09/18 09:30 08/09/18 09:30 08/09/18 09:30 Oxygen Delivery Method Room Air Weight: 175 lb 4.28 oz Body Mass Index (BMI) 23.8 Intake and Output for Last 24 Hours Intake Total 120 / 120 Balance 120 / 120 Laboratory Tests Past 24 Hrs WBC 6.6 RBC 3.21 L Hgb 10.6 L Hct 30.9 L MCV 96.3 H WBC RBC Hgb Hct MCV MCH MCHC RDW RDW Differential Plt Count WBC 5.7 RBC 3.31 L WBC RBC Hgb Hct MCV MCH MCHC Discharge Diet: Low fat/ Low Cholesterol, 2000 mg Sodium Diet, - - No alcohol Discharge Activity: Return to Normal Activity Home Medications: Medications to take at Discharge Fluoxetine [Prozac] 20 mg PO TID 08/06/15 Pravastatin Sodium 40 mg PO QHS 07/08/17 Quetiapine Fumarate [Seroquel XR] 400 mg PO QHS 07/08/17 Acamprosate Calcium 666 mg PO BID 08/08/18 DiphenhydrAMINE [Benadryl] 25 mg PO TID PRN PRN capsule 08/09/18 Hydrochlorothiazide 12.5 mg PO DAILY #30 capsule 08/09/18 Following Prescrptions Were Given to Patient: Hydrochlorothiazide 12.5 mg PO DAILY #30 capsule Primary Care Physician: Gera Velazco Chi, MD [Primary Care Provider] - Please follow up with your Primary Care Physician in: 1 week Please Follow Up With: Gera Velazco Chi, MD Disposition: Home Medical Necessity - Tobacco Use Smoking Status: Current every day smoker Tobacco Use: Cigars, Pipe Meaningful Use Info Meaningful Use Diagnoses (Choose all that apply): None applicable <Phill Astorga - Last Filed: 08/09/18 16:47> Discharge Date and Diagnosis - Secondary Discharge Diagnosis Chronic Problems (Last Updated 08/08/18 @ 22:21 by Clay Choi MD) Hypertension (Chronic) Hospital Course and Treatment Summary of Care Provided: This patient was seen in conjunction with Davy JAIMES. I have independently interviewed and examined the patient and reviewed pertinent history, examination findings, laboratory and plan of management. I have reviewed the note and agree with the documented findings with the few additional points. In brief, patient is admitted for lip swelling. Patient has been on KAYLYN inhibitor for about 2 years. Patient was treated with Benadryl, Pepcid and Solu- Medrol and lip swelling resolved. Patient is discharged off lisinopril. Advised to follow with PCP. I have discussed my assessment with Davy JAIMES and orders have been reviewed. [] - Physical Exam General: Alert, Oriented x3, Cooperative HEENT: Atraumatic, PERRLA, EOMI, Normocephalic Oral: - - No oropharyngeal swelling. No tongue swelling. Lip swelling has almost resolved Neck: Supple, No JVD, Negative Carotid Bruits, Thyroid Normal Size and Texture Lungs: Clear to auscultation, Normal air movement Cardiovascular: Regular rate, Regular Rhythm, Normal S1, Normal S2, No murmurs Abdomen: Bowel Sounds Present, Soft, Non Tender, Non-Distended Extremities: No edema, Capillary Refill Less than 3 Seconds Skin: No rashes, No breakdown Musculoskeletal: No Tenderness to Palpation of Joints or Extremities Neurological: Cranial nerves II-XII grossly intact Psych/Mental Status: Normal Affect, Appropriate Vital Signs Temp Pulse Resp BP Pulse Ox 98.6 F 90 16 129/80 H 97 08/09/18 09:30 08/09/18 10:55 08/09/18 09:30 08/09/18 09:30 08/09/18 09:30 Oxygen Delivery Method Room Air Weight: 175 lb 4.28 oz Body Mass Index (BMI) 23.8 Intake and Output for Last 24 Hours Intake Total 120 / 120 Balance 120 / 120 Laboratory Tests Past 24 Hrs WBC 6.6 RBC 3.21 L Hgb 10.6 L Hct 30.9 L MCV 96.3 H WBC RBC Hgb Hct MCV MCH MCHC RDW RDW Differential Plt Count WBC 5.7 RBC 3.31 L WBC RBC Hgb Hct MCV MCH MCHC Meaningful Use Info Meaningful Use Diagnoses (Choose all that apply): None applicable Code Visit OBSV ARABELLA: [id number] Observation care discharge 08/09/18 1354 <Electronically signed by Davy JAIMES> Date Davy JAIMES 08/09/18 1647<Electronically signed by Phill Astorga MD> Cosigner Signature (if applicable): Date Phill Astorga MD CC: THEODORE Pena; Phill Astorga MD; Gera Velazco MD Signed DISCHARGE INSTRUCTION Observed: 08/09/2018 Status: F Source: [place] 11:20 AM [facility] [place] [facility] Medical Records Department [address] [place] [address] Instructions for Home/Discharge Instructions 08/09/18 1118 MR#: [id number] Acct: [id number] Name: HERB RICHARDS Rep #: [id number] : 1960 57 From: Davy JAIMES PCP: Gera Velazco MD, Chi Status: ADM SHERWIN - Discharge Diagnoses Current Active Problems: Current Active and Chronic Problems (Last Updated 08/08/18 @ 22:21 by Clay Choi MD) Angioedema of lips (Acute) Hypertension (Chronic) Hyperlipidemia (Acute) You will use the following diet at home:: Cardiac, Other - no alcohol Your food should be the consistency of: Regular Your liquids should be the consistency of: Regular/Thin Discharge Activity: Return to Normal Activity Additional Instructions: Check your blood pressure daily, record the results, and give them to your family physician at follow up. Allergies/Adverse Reactions: Allergies lisinopril Allergy (Verified 08/09/18 09:28) Angioedema peanut Allergy (Verified 08/08/18 16:42) Hives Medications to take at Discharge Fluoxetine [Prozac] 20 mg PO TID 08/06/15 Pravastatin Sodium 40 mg PO QHS 07/08/17 Quetiapine Fumarate [Seroquel XR] 400 mg PO QHS 07/08/17 Acamprosate Calcium 666 mg PO BID 08/08/18 DiphenhydrAMINE [Benadryl] 25 mg PO TID PRN PRN capsule 08/09/18 Hydrochlorothiazide 12.5 mg PO DAILY #30 capsule 08/09/18 The following prescriptions were given: Hydrochlorothiazide 12.5 mg PO DAILY #30 capsule Primary Care Physician: Gera Velazco Chi, MD [Primary Care Provider] - Please follow up with your Primary Care Physician in: 1 week Test Results: Test results from this visit will be discussed in further detail at your follow-up appointment, if applicable. Proposed Discharge Date: 08/09/18 08/09/18 1120 <Electronically signed by Davy JAIMES> Date Davy JAIMES CC: Gera Velazco MD HISTORY AND PHYSICAL Observed: 08/09/2018 Status: F Source: [place] EXAM 10:00 AM [facility] [place] [facility] Medical Records Department [address] [place] [address] History and Physical 08/08/182027 MR#: [id number] Acct: [id number] Name: HERB RICHARDS Rep #: [id number] : 1960 57 From: Clay Choi MD PCP: Gera Velazco MD, Chi Status: ADM SHERWIN Y Location: [place] [address] ADDENDUM by Clay Choi MD on 08/09/18 at 1000 Code Visit Hypertension Blood pressure fairly controlled on admission. Lisinopril held because of angioedema Hydrochlorothiazide continued Hydralazine as needed. DVT prophylaxis Subcutaneous Lovenox. 08/09/18 1000 <Electronically signed by Clay Choi MD> Date Clay Choi MD cc: Clay Choi MD; Gera Velazco MD * Signed Problem List (1) Angioedema of lips Status: Acute (2) Hypertension Status: Chronic (3) Hyperlipidemia Status: Acute History of Present Illness Date of Admission: 08/08/18 Chief Complaint: Swelling of lip The patient is a 57 year old M with a significant history of bipolar disorder; anxiety; hyperlipidemia and hypertension on lisinopril who presents with swelling of his left upper lip on the same day of admission. Patient reports progressively worsening of his symptoms. He denies any shortness of breath, tongue swelling or neck swelling. He took his morning lisinopril around 830 to 9 AM on the day of admission. His symptoms began in the early afternoon of the day of admission Patient reports a previous history of hives when he was a child. Past Medical History Past Medical History (Chronic Problems): Chronic Problems (Last Updated 08/08/18 @ 22:21 by Clay Choi MD) Hypertension (Chronic) Medical History: Medical History (Last Updated 08/08/18 @ 22:21 by Clay Choi MD) Anxiety F41.9 Bipolar disorder F31.9 Allergies peanut Allergy (Verified 08/08/18 16:42) Hives Home Medications: Ambulatory Orders Medication Instructions Recorded Fluoxetine [Prozac] 20 mg PO TID 08/06/15 Lisinopril/Hydrochlorothiazide 1 tablet PO DAILY 07/08/17 Surgical History: - - Pins and plates in left forearm Psychiatric History: Anxiety, Bipolar Lives: Alone Smoking Status: Current every day smoker Alcohol: Heavy - *Family History Paternal Family History: Family History (Last Updated 08/08/18 @ 22:24 by Clay Choi MD) Father Myocardial infarction Mother Stomach cancer Review of Systems Constitutional: Denies: Chills, Fever, Weight Change HEENT: Denies: Head Aches, Sinus Congestion, Sinus Drainage Cardiovascular: Denies: Chest Pain, Palpitations Respiratory: Denies: Cough, Shortness of breath at rest, Sputum production Gastrointestinal: Denies: Abdominal Pain, Nausea, Vomiting Genitourinary: Denies: Dysuria Musculoskeletal: Denies: Joint Pain, Joint Tenderness Skin: Denies: Rash, Wounds Neurological: Denies: Numbness, Tingling, Focal weakness Psychiatric: Denies: Anxiety, Depression, Homicidal Ideations, Suicidal Ideations Hematologic/ Lymphatic: Denies: Easy Bruising, Easy Bleeding VTE Information - Inpt Only VTE Present on Admission: No VTE Mechan Device Prophylaxis: None VTE Pharm Prophylaxis ordered?: Yes Patient Problems: Active and Suspected Problems (Last Updated 08/08/18 @ 22:21 by Clay Choi MD) Angioedema of lips (Acute) Hyperlipidemia (Acute) - Physical Exam General: Alert, Oriented x3, Cooperative HEENT: - - Swelling of left upper lips and maxillary area. Neck: Supple, No JVD, Negative Carotid Bruits Lungs: Clear to auscultation, Normal air movement Cardiovascular: Regular rate, No murmurs Abdomen: Bowel Sounds Present, Soft, Non Tender Extremities: No edema, Capillary Refill Less than 3 Seconds Skin: No rashes, No breakdown Musculoskeletal: No Tenderness to Palpation of Joints or Extremities Neurological: Cranial nerves II-XII grossly intact Psych/Mental Status: Normal Affect, Appropriate Vital Signs Temp Pulse Resp BP Pulse Ox 98.2 F 101 H 12 134/94 H 98 08/08/18 16:39 08/08/18 19:01 08/08/18 19:01 08/08/18 19:01 08/08/18 19:01 Oxygen Delivery Method Room Air Weight: 87.5 kg Body Mass Index (BMI) 26.2 Laboratory Tests Past 24 Hrs WBC 6.6 RBC 3.21 L Hgb 10.6 L Hct 30.9 L MCV 96.3 H MCH 33.0 H MCHC 34.3 RDW 12.5 Assessment/Plan All Active Problems (Last Updated 08/08/18 @ 22:21 by Clay Choi MD) Angioedema of lips (Acute) Hyperlipidemia (Acute) The patient is a 57 year old M with a significant history of bipolar disorder; anxiety; hyperlipidemia and hypertension on lisinopril who presents with progressively worsening swelling of his left upper lip which later involved his maxillary area in the setting of KAYLYN inhibitor use . Angioedema Discontinue KAYLYN inhibitor. Discussed with patient that this may be likely to KAYLYN inhibitor. Received Solu-Medrol, Benadryl and Pepcid at emergency department. Since patient reported previous itchiness Benadryl as needed ordered. Steroid not ordered at this time. C1 esterase level not ordered. If symptoms persist consider fresh frozen plasma. Discussed with nurse to do more frequent monitoring about once every hour. If symptoms progress consider airway protection and transferred to ICU. Alcohol dependence. Patient reports drinking about 4 bottles of beer 4-6 times per week. Placed on seizure protocol with thiamine, multivitamin and Ativan. Home Acamprosate calcium held Hyponatremia Sodium level 128 on admission. Likely due to be beer potomania. TSH, cortisol in a.m., serum osmolality and urine osmolality ordered. BMP in a.m. Hypochloremia Associated with hyponatremia as above. Hypokalemia Potassium level 3.4 on admission Mild. Not replaced at this time. Could be due to alcohol abuse. Magnesium level ordered. Repeat BMP in a.m. Tobacco abuse Patient reports smoking pipe. Counseled Nicotine patch ordered. Inpatient consult smoking cessation. Bipolar disorder and anxiety disorder Quetiapine continued Prozac continue Hyperlipidemia Pravastatin continued Code Visit OBSV E AND M: 12369 Initial observation care 08/09/18 0957 <Electronically signed by Clay Choi MD> Date Clay Choi MD Cosigner Signature: Date (if applicable) CC: Clay Choi MD; Gera Velazco MD Signed T4 FREE DIRECT Collected: 08/09/2018 Status: F Source: [place] 9:36 AM [facility] [place] [facility] Order Comment: Comments: ok to add on TYPE CODE TESTS RESULT OUT OF RANGE REFERENCE UNITS LAB L506.0400 0.76-1.46 ng/dL Normal T4 FREE 0.87 DIRECT Performed By: #### L506.0400 #### [facility] [address] [place], [address] PHOSPHORUS Collected: 08/09/2018 Status: F Source: [place]EV 9:36 AM [facility] [place] [facility] Order Comment: Comments: ok to add on TYPE CODE TESTS RESULT OUT OF RANGE REFERENCE UNITS LAB L501.2300 2.5-4.9 mg/dL Normal PHOS 3.9 Performed By: #### L501.2300 #### [facility] [address] [place], [place], [address] CBC-COMPLETE BLOOD CNT Collected: 08/09/2018 Status: F Source: LEV NO DIFF 5:35 AM [facility] [place] [facility] TYPE CODE TESTS RESULT OUT OF RANGE REFERENCE UNITS LAB L100.1000 4.4-11.0 K/mm3 Normal WBC 5.7 LAB L100.1200 4.6-6.2 M/mm3 Low RBC 3.31 LAB L100.1300 13.0-16.5 g/dl Low HGB 11.2 LAB L100.1400 40-54 % Low HCT 32.2 LAB L100.1500 80-94 fL High MCV 97.3 LAB L100.1600 27.0-32.0 pg High MCH 33.8 LAB L100.1700 32-36 g/gl Normal MCHC 34.8 LAB L100.1810 11.6-14.6 % Normal RDW CV 12.0 LAB L100.1820 35.1-43.9 fl Normal RDW SD 41.2 LAB L100.1900 150-450 K/mm3 High PLT 592 LAB L100.2000 6.2-12.0 fl Normal MPV 8.2 Performed By: #### L100.0500 #### [facility] [address] [place], [place], [address] BASIC METABOLIC Collected: 08/09/2018 Status: F Source: LEV PROFILE (BMP) 5:35 AM [facility] [place] [facility] TYPE CODE TESTS RESULT OUT OF RANGE REFERENCE UNITS LAB L501.0100 74-106 mg/dL High GLU 134 Result Comment: Fasting Glucose result greater than or equal to 126 mg/dL suggests DIABETES MELLITUS per A.D.A. criteria. Please note revised GLUCOSE reference range effective 2017. LAB L501.1000 7-18 mg/dL Normal BUN 8 LAB L501.1100 0.70-1.30 mg/dL Low CREAT,SERUM 0.63 Result Comment: The validity of the calculated GFR AND GFRAA in patients over 70 years has not been determined. Clinical correlation is essential. LAB L501.1110 >60 mL/min Normal EST GFR 137 Result Comment: Non- GFR Calc LAB L501.1115 >60 mL/min Normal EST GFR - AA 166 Result Comment: GFR Calc LAB L501.1255 ml/min Normal Estimated CRCL 138.57 LAB L501.1300 10-20 RATIO BUN/CRE Normal 12.6 LAB L501.2200 8.5-10 mg/dL .1 CA Normal 8.9 LAB L501.5300 136-14 mmol/L Low 5 NA 130 LAB L501.5600 3.5-5. mmol/L 1 K Normal 3.6 LAB L501.5900 98-107 mmol/L Low CL 95 LAB L501.6100 21.0-3 mmol/L 2.0 CO2 Normal 27.0 LAB L501.6200 5-15 GAP Normal 8 Performed By: #### L500.2500 #### [facility] [address] [place], [address] CORTISOL SERUM Collected: 08/09/2018 Status: F Source: [place] 5:35 AM [facility] [place] [facility] TYPE CODE TESTS RESULT OUT OF RANGE REFERENCE UNITS LAB L509.6000 3.09-22.40 ug/dL Normal CORTISOL 3.90 Result Comment: Adult (AM) 4.30 - 22.40 ug/dL Adult (PM) 3.09 - 16.66 ug/dL Performed By: #### L509.6000 #### [facility] [address] [place], [address] EMERGENCY DEPARTMENT Observed: 08/08/2018 Status: F Source: [place] SUMMARY 11:38 PM [facility] [place] [facility] Medical Records Department [address] [place] [address] Emergency Department Summary 08/08/18 1658 MR#: [id number] Acct: [id number] Name: HERB RICHARDS Rep #: [id number] : 1960 57 From: Dalila Garcia MD PCP: Juan A GARCIA,Gera Diaan Status: ADM [facility]ER[facility] - ER Visit Summary Date of Service: 08/08/18 Chief Complaint: Facial swelling History of Present Illness: The patient is a 57 M who noted swelling to the left upper lip that started at noon today. He presents just after 430 for evaluation. He states the only applesauce this morning prior to the onset of swelling and took his normal medications. He denies shortness of breath or throat tightness. He did eat Malaysian toast to baby aspirin after the onset of swelling. He denies any prior allergic reactions similar to this. He does currently take lisinopril. He states he feels like he is itching all over, but denies rash. Physical Examination: Vital signs unremarkable. Patient sitting upright in bed no acute distress. He speaks with a strong voice. Head neck examination does reveal left upper lip and maxilla edema. Patient is edentulous and intraoral examination is otherwise unremarkable. There is no tongue edema and posterior pharynx exam is normal. Heart is regular rate and rhythm. Lung sounds are clear. Abdomen is soft nontender. Skin examination reveals no rash or lesions Test Results: CBC significant for hemoglobin 10.6. Chemistry studies reveal a sodium of 188 potassium 3.4. Emergency Department Course and Treatment: Patient received IV Benadryl with squad. He was given IV Pepcid and Solu-Medrol here. Patient was reevaluated multiple times. He continues to have slight worsening of his facial swelling because his upper lip and onto the left maxilla. There is no tongue edema or posterior pharyngeal edema. Patient initially refused hospitalization, but after being able to make arrangements to care for his dogs, patient has agreed to admission. Hospitalist is on page. Treatment Plan: [] Disposition: Admit Impression: Angioedema This note was generated with [employer] dictation software. It may contain incorrect words, spelling, and punctuation that were not noted in review of the chart prior to signing ED Disposition - Plan for ED Patient: Chief Complaint: Edema Referrals: Gera Velazco Chi, MD [Primary Care Provider] - What to do if you have Problems For any increased pain, shortness of breath, bleeding, nausea or vomiting, chest pain, or any unexpected problems, contact your Primary Care Provider. Call [facility] ([phone]) or report to the closest Emergency Room. Call 911 if necessary. 08/08/18 4158 <Electronically signed by Dalila Garcia MD> Date Dalila Garcia MD Cosigner Signature (If Indicated): Date CC: Gera Velazco MD URINE SODIUM Collected: 08/08/2018 Status: F Source: LEV 11:30 PM [facility] [place] [facility] Order Comment: Has pt arrived? Y TYPE CODE TESTS RESULT OUT OF RANGE REFERENCE UNITS LAB L501.5500 Not Establ. mmol/L Normal UR NA 35 Performed By: #### L501.5500 #### [facility] [address] [place] [place], [address] OSMOLALITY, URINE Collected: 08/08/2018 Status: F Source: LEV 11:30 PM [facility] Order Comment: Has pt arrived? Y TYPE CODE TESTS RESULT OUT OF RANGE REFERENCE UNITS LAB L501.7400 mOsm/KG Normal 273 OSMOLALITY,U R Result Comment: OSMOLALITY URINE REFERENCE INTERVALS 24-hour Urine 300 - 900 mOsm/kg Random Urine 50 - 1400 mOsm/kg After 12 Hr fluid restriction >850 mOsm/kg Performed By: #### L501.7400 #### [facility] [address] [place], [address] OSMOLALITY, SERUM Collected: 08/08/2018 Status: F Source: LEV 10:15 PM [facility] [place] [facility] TYPE CODE TESTS RESULT OUT OF RANGE REFERENCE UNITS LAB L501.7300 275-295 mOsm/KG Low 265 OSMOLALITY,S ER Performed By: #### L501.7300 #### [facility] [address] [place] [place], [address] MAGNESIUM Collected: 08/08/2018 Status: F Source: LEV 10:15 PM [facility] [place] [facility] TYPE CODE TESTS RESULT OUT OF RANGE REFERENCE UNITS LAB L501.5200 1.6-2.6 mg/dL Low MG 1.4 Performed By: #### L501.5200, L501.9520 #### [facility] [address] [place], [place], [address] THYROID STIM HORMONE Collected: 08/08/2018 Status: F Source: LEV (TSH) 10:15 PM [facility] [place] [facility] TYPE CODE TESTS RESULT OUT OF RANGE REFERENCE UNITS LAB L501.9520 0.358-3.74 uIU/mL Low TSH 0.30 Performed By: #### L501.5200, L501.9520 #### [facility] [address] [place], [address] CBC W/DIFF, AUTOMATED Collected: 08/08/2018 Status: F Source: LEV 5:00 PM [facility] [place] TYPE CODE TESTS RESULT OUT OF RANGE REFERENCE UNITS LAB L100.1000 4.4-11.0 K/mm3 Normal WBC 6.6 LAB L100.1200 4.6-6.2 M/mm3 Low RBC 3.21 LAB L100.1300 13.0-16.5 g/dl Low HGB 10.6 LAB L100.1400 40-54 % Low HCT 30.9 LAB L100.1500 80-94 fL High MCV 96.3 LAB L100.1600 27.0-32.0 pg High MCH 33.0 LAB L100.1700 32-36 g/gl Normal MCHC 34.3 LAB L100.1810 11.6-14.6 % Normal RDW CV 12.5 LAB L100.1820 35.1-43.9 fl Normal RDW SD 43.9 LAB L100.1900 150-450 K/mm3 Normal PLT 392 LAB L100.2000 6.2-12.0 fl Normal MPV 7.9 LAB L100.2100 47-70 % Normal NEUT% 61.2 LAB L100.2200 19-41 % Normal LY% 22.9 LAB L100.2300 0-10 % High MONO% 13.6 LAB L100.2400 0-5 % Normal EO% 1.5 LAB L100.2500 0-1 % Normal BASO% 0.6 LAB L100.2550 0.0-0.9 % Normal IM GRAN % 0.200 Result Comment: IG% - Immature Granulocytes (promyelocytes, myelocytes and metamyelocytes) > 1% indicates that a LEFT SHIFT is Present. LAB L100.2620 2.0-7.7 X10 3/uL Normal Absolute Neut 4.1 LAB L100.2720 0.83-4.51 X10 3/ul Normal Absolute Lymph 1.52 Performed By: #### L100.0100 #### [facility] [address] [place], [place], [address] BASIC METABOLIC Collected: 08/08/2018 Status: F Source: [place] PROFILE (BMP) 5:00 PM [facility] [place] [facility] TYPE CODE TESTS RESULT OUT OF RANGE REFERENCE UNITS LAB L501.0100 74-106 mg/dL High GLU 115 Result Comment: Fasting Glucose result from 100 to 125 mg/dL suggests IMPAIRED HOMEOSTASIS per A.D.A. criteria. Please note revised GLUCOSE reference range effective 2017. LAB L501.1000 7-18 mg/dL Low BUN 5 LAB L501.1100 0.70-1.30 mg/dL Low CREAT,SERUM 0.65 Result Comment: The validity of the calculated GFR AND GFRAA in patients over 70 years has not been determined. Clinical correlation is essential. LAB L501.1110 >60 mL/min Normal EST GFR 133 Result Comment: Non- GFR Calc LAB L501.1115 >60 mL/min Normal EST GFR - AA 160 Result Comment: GFR Calc LAB L501.1255 ml/min Normal Estimated CRCL 134.31 LAB L501.1300 10-20 RATIO Low BUN/CRE 7.7 LAB L501.2200 8.5-10 mg/dL .1 CA Normal 8.7 LAB L501.5300 136-14 mmol/L Low 5 NA 128 LAB L501.5600 3.5-5. mmol/L Low 1 K 3.4 LAB L501.5900 98-107 mmol/L Low CL 91 LAB L501.6100 21.0-3 mmol/L 2.0 CO2 Normal 27.0 LAB L501.6200 5-15 GAP Normal 10 Performed By: #### L500.2500 #### [facility] [address] [place], [address] CBC W/DIFF, AUTOMATED Collected: 03/16/2018 Status: F Source: LEV 3:48 PM [facility] [place] [facility] TYPE CODE TESTS RESULT OUT OF RANGE REFERENCE UNITS LAB L100.1000 4.4-11.0 K/mm3 Normal WBC 6.3 LAB L100.1200 4.6-6.2 M/mm3 Low RBC 4.01 LAB L100.1300 13.0-16.5 g/dl Normal HGB 13.1 LAB L100.1400 40-54 % Low HCT 38.9 LAB L100.1500 80-94 fL High MCV 97.0 LAB L100.1600 27.0-32.0 pg High MCH 32.7 LAB L100.1700 32-36 g/gl Normal MCHC 33.7 LAB L100.1810 11.6-14.6 % Normal RDW CV 13.4 LAB L100.1820 35.1-43.9 fl High RDW SD 47.7 LAB L100.1900 150-450 K/mm3 Normal PLT 292 LAB L100.2000 6.2-12.0 fl Normal MPV 8.7 LAB L100.2100 47-70 % Normal NEUT% 47.0 LAB L100.2200 19-41 % Normal LY% 36.8 LAB L100.2300 0-10 % High MONO% 10.1 LAB L100.2400 0-5 % High EO% 5.3 LAB L100.2500 0-1 % Normal BASO% 0.6 LAB L100.2550 0.0-0.9 % Normal IM GRAN % 0.200 Result Comment: IG% - Immature Granulocytes (promyelocytes, myelocytes and metamyelocytes) > 1% indicates that a LEFT SHIFT is Present. LAB L100.2620 2.0-7.7 X10 3/uL Normal Absolute Neut 2.9 LAB L100.2720 0.83-4.51 X10 3/ul Normal Absolute Lymph 2.30 Performed By: #### L100.0100 #### [facility] [address] [place], [place], [address] COMPREHENSIVE METABOLIC Collected: 03/16/2018 Status: F Source: LEV [facility] 3:48 PM [facility] [place] [facility] TYPE CODE TESTS RESULT OUT OF RANGE REFERENCE UNITS LAB L501.0100 74-106 mg/dL Normal GLU 84 Result Comment: Please note revised GLUCOSE reference range effective 2017. LAB L501.1000 7-18 mg/dL Low BUN 6 LAB L501.1100 0.70-1.30 mg/dL Normal CREAT,SERUM 0.70 Result Comment: The validity of the calculated GFR AND GFRAA in patients over 70 years has not been determined. Clinical correlation is essential. LAB L501.1110 >60 mL/min Normal EST GFR 122 Result Comment: Non- GFR Calc LAB L501.1115 >60 mL/min Normal EST GFR - AA 148 Result Comment: GFR Calc LAB L501.1300 10-20 RATIO Low BUN/CRE 8.5 LAB L501.1500 6.4-8.2 g/dL Normal T PROT 8.2 LAB L501.1800 3.2-5.0 g/dL Normal ALB 3.7 LAB L501.1950 2.2-4.2 g/dL High GLOB 4.5 LAB L501.2000 0.9-2.4 RATIO Low A/G 0.8 LAB L501.2200 8.5-10.1 mg/dL Normal CA 8.7 LAB L501.4100 15-37 U/L Normal AST 26 LAB L501.4305 45-117 U/L Normal ALK P 63 LAB L501.4405 16-61 U/L Normal ALT 26 LAB L501.4600 0.20-1.00 mg/dL Normal T BILI 0.40 LAB L501.5300 136-145 mmol/L Normal NA 136 LAB L501.5600 3.5-5.1 mmol/L Normal K 3.9 LAB L501.5900 98-107 mmol/L Normal CL 101 LAB L501.6100 21.0-32.0 mmol/L Normal CO2 25.0 LAB L501.6200 5-15 Normal GAP 10 Performed By: #### L500.4050, L501.9520, L501.9910 #### [facility] [address] [place], [place], [address] THYROID STIM HORMONE Collected: 03/16/2018 Status: F Source: LEV (TSH) 3:48 PM [facility] [place] [facility] TYPE CODE TESTS RESULT OUT OF RANGE REFERENCE UNITS LAB L501.9520 0.358-3.74 uIU/mL Normal TSH 1.48 Performed By: #### L500.4050, L501.9520, L501.9910 #### [facility] [address] [place], [address] PSA,TOTAL - ANNUAL Collected: 03/16/2018 Status: F Source: LEV SCREEN 3:48 PM [facility] [place] [facility] TYPE CODE TESTS RESULT OUT OF RANGE REFERENCE UNITS LAB L501.9910 0.00-4.00 ng/mL Normal PSA,TOT 3.37 SCREEN Result Comment: This test was performed using the TPSA assay method for the [employer] chemistry system. Values obtained with different assay methods cannot be used interchangably. When changing PSA assays in the course of monitoring a patient, additional sequential testing should be carried out to confirm baseline values. Performed By: #### L500.4050, L501.9520, L501.9910 #### [facility] [address] [place], [address] VITAMIN D,25 HYDROXY Collected: 03/16/2018 Status: F Source: [place]EV 3:48 PM [facility] [place] [facility] TYPE CODE TESTS RESULT OUT OF REFERENCE UNITS RANGE LAB L506.1000 29.95-100.01 ng/mL Low Vitamin D 21.3 25-OH Result Comment: Vitamin D 25(OH) Status Range Deficiency <20 ng/mL (50nmol/L) Insuffciency 20 - 30 ng/mL (50 - 75 nmol/L) Sufficiency 30 - 100 ng/mL (75 - 250 nmol/L) Toxicity >100 ng/mL (>250 nmol/L) Performed By: #### L506.1000 #### [facility] [address] [place], [address] HEPATITIS C ANTIBODIES Collected: 03/16/2018 Status: F Source: [place] 3:48 PM [facility] [place] [facility] TYPE CODE TESTS RESULT OUT OF RANGE REFERENCE UNITS LAB L3100.0650 0.0-0.9 s/co ratio Normal HEP C AB <0.1 Result Comment: Negative: < 0.8 Indeterminate: 0.8 - 0.9 Positive: > 0.9 The CDC recommends that a positive HCV antibody result be followed up with a HCV Nucleic Acid Amplification test (474972). Performed at: - [facility] [id number] Podiatric Physician: Siva Adams PhD, Phone: [phone] Performed By: #### L3100.0625 #### [facility] (refer to report for specific site) refer to report for address and phone number ALLERGIES ALLERGIES DATE TYPE / CODE NAME / CODE REACTION SEVERITY SOURCE 08/09/2018 Drug lisinopril/F Angioedema Unknown [facility] Allergy/4160 [id number]([place] [id number](SNOMED NORM) Repository CT) 08/08/2018 Drug peanut/F0060 Hives Unknown [facility] Allergy/4160 26579([place] [id number](SNOMED ) Repository CT) ENCOUNTERS ENCOUNTERS ADMIT/DISCHARGE ACCOUNT ADMITTING ENCOUNTER LOCATION SOURCE NUMBER CLASS 11/10/2018 [id number] Ambulatory [place] 0 [facility] ing:POLAB3 Repository 11/04/2018/ [id number] Emergency Lev Lev 9 9 [facility] ing:ED Repository 08/12/2018 [id number] Ambulatory [place] 9 [facility] ing:POLAB3 Repository 08/08/2018 [id number] [place], Ambulatory BMSBuilding:B [place] [address] [place].[facility] Repository 08/08/2018 [id number] [place], Ambulatory BMSBuilding:B [place] [address] [place].[facility] Repository 08/08/2018/ [id number] [place], Ambulatory Lev Lev 8 4 [facility] ing:PCURoom: Repository [id number]: 1 03/16/2018 [id number] Ambulatory Lev Lev 3 [facility] ing:POLAB3 Repository PAYERS PAYERS ENCOUNTER GUARANTOR PAYER SUBSCRIBER SOURCE 11/10/2018 HERB [place] [id number] SPINK Insurance:MEDICARE GREEGORDOB: [facility] [address] BPolicy [id number] [place] [address]Tgp: Number: Repository [id number] (HP) Date:2018-11-10 11/10/2018 Secondary NOT GIVENUNK Lev Insurance:SELF PAY [facility] Number: Effective Repository Date:2018-11-10 11/04/2018 HERB Ohara [id number] SPINK Insurance:MEDICARE GREEGORDOB: Community [address] [facility] [id number] [facility], [place] [address]Psz: Number: Repository [id number] (HP) Date:2018-11-04 11/04/2018 Secondary NOT GIVENUNK Lev Insurance:SELF PAY [facility] Number: Effective Repository Date:2018-11-04 08/12/2018 HERB Larkin Primary HERB Ohara [id number] SPINK Insurance:MEDICARE GREEGORDOB: Community [address] [facility] [id number] [facility], [place] [address]Duj: Number: Repository [id number] (HP) Date:2018-08-12 08/12/2018 Secondary NOT GIVENUNK [place] Insurance:SELF PAY [facility] Number: Effective Repository Date:2018-08-12 08/08/2018 HERB Ohara [id number] SPINK Insurance:MEDICARE GREEGORDOB: Community [address] [address] [facility] [id number] Regional Hospital, [place] [address]Egs: Number: Repository [id number] (HP) Date:2018-08-08 08/08/2018 Secondary NOT GIVENUNK Lev Insurance:SELF PAY [facility] Number: Effective Repository Date:2018-08-08 08/08/2018 HERB Ohara [id number] SPINK Insurance:MEDICARE GREEGORDOB: [facility] [address] [facility] [id number] [facility], [place] [address]Oat: Number: Repository [id number] (HP) Date:2018-08-08 08/08/2018 Secondary NOT GIVENUNK Lev Insurance:SELF PAY [facility] Number: Effective Repository Date:2018-08-08 08/08/2018 HERB Larkin Primary HERB Ohara [id number] SPINK Insurance:MEDICARE GREEGORDOB: Community [address] [place] [place] [facility] [id number] Regional Hospital, [place] [address]Gan: Number: Repository [id number] () Date:2018-08-08 08/08/2018 Secondary HERB Ohara Insurance:MEDICAIDPol [place] [facility] [place] [id number] .Effective Repository Date:2018-08-08 08/08/2018 Tertiary NOT GIVENUNK [place] Insurance:SELF PAY [facility] Number: Effective Repository Date:2018-08-08 03/16/2018 Herb Larkin Primary Herb Ohara [id number] Insurance:MEDICARE [place]DOB[facility] [address] [facility] [id number] [place] [address]: Number: Repository [id number] () Date:2018-03-16 03/16/2018 Secondary NOT GIVENUNK [place] Insurance:SELF PAY [facility] Number: Effective Repository Date:2018-03-16
== END 2018-11-04 17:20 | disposition home or self-care (01) ==
PROVIDERS: Emergency Provider Emergency Medicine; Family Provider Family Medicine Geriatric Medicine; PCP Family Medicine Geriatric Medicine
DX: S20.212A Contusion of left front wall of thorax, initial encounter (principal); S20.211A Contusion of right front wall of thorax, initial encounter; R29.6 Repeated falls; E87.1 Hypo-osmolality and hyponatremia; Z79.899 Other long term (current) drug therapy; Z72.0 Tobacco use; W08.XXXA Fall from other furniture, initial encounter; Y93.89 Activity, other specified; Y92.008 Other place in unspecified non-institutional (private) residence as the place of occurrence of the external cause; Y99.8 Other external cause status
CPT/HCPCS: 71046; 73130; 80048; 85025; 93005; 96374; 99285; A4216

== ENCOUNTER → 2018-11-10 16:51 | Outpatient (CLI) | payer MEDICARE, SELFPAY ==
[2018-11-04 15:14] VITALS: BMI 25.5
[2018-11-10 17:43] LABS: Anion Gap 11 (5-15); BUN 6 mg/dL (7-18); BUN/Creat Ratio 9.7 RATIO (10-20); Calcium,Total 9.2 mg/dL (8.5-10.1); Chloride 93 mmol/L (98-107); Creatinine, Serum 0.62 mg/dL (0.70-1.30); EST Glomerular Filtration Rate 142 mL/min (>60); Est Glom Filt Rate - Afr Amer 171 mL/min (>60); Glucose 94 mg/dL (74-106); Potassium 3.7 mmol/L (3.5-5.1); Sodium Level 130 mmol/L (136-145)
== END ==
PROVIDERS: Family Provider Family Medicine Geriatric Medicine; PCP Family Medicine Geriatric Medicine; Visit Provider Family Medicine Geriatric Medicine
DX: E87.6 Hypokalemia (principal)
CPT/HCPCS: 36415; 80048

== ENCOUNTER 2019-04-30 15:59 | Emergency (ER) | payer MEDICARE, SELFPAY ==
[2019-04-30 16:00] VITALS: BP 181/103; PULSE 106; PULSE 110; RESP 24; TEMP 36.7; O2SAT 92; BMI 32.3
[2019-04-30] MEDS: 0.9% Normal Saline 1,000 ML 999 ML IV (16:15)
--- NOTE | 2019-04-30 16:33 | EKG12_ITS ---
Test Reason : SEIZURE Blood Pressure : / mmHG Vent. Rate : 102 BPM Atrial Rate : 102 BPM P-R Int : 194 ms QRS Dur : 090 ms QT Int : 374 ms P-R-T Axes : 027 -23 041 degrees QTc Int : 487 ms Sinus tachycardia Cannot rule out Inferior infarct , age undetermined Abnormal ECG Confirmed by WALTER GARCIA, HIRO ([id number]), movie editor TYRONE CALERO ([id number]) on 05/03/2019 2:11:58 PM Referred By: SELINA Confirmed By:HIRO WATSON MD
--- NOTE | 2019-04-30 16:33 | CT_ITS ---
STUDY: CT BRAIN WITHOUT CONTRAST REASON FOR EXAM: Male, 58 years old. Seizure. RADIATION DOSAGE (If Supplied By Facility): CTDIvol = ( 44.99 ) mGy, DLP = ( 863.60 ) mGycm TECHNIQUE: Transaxial CT imaging of the brain was performed without administration of intravenous contrast material. Individualized dose optimization techniques were used for this CT. COMPARISON: Prior head CT exam of November 04, 2015 FINDINGS: Normal soft tissue structures. Normal calvarium. Normal size ventricles and extra-axial spaces for the patient's age. Normal white matter tracts of the cerebral hemispheres. Normal basal ganglia and thalami. Normal brainstem. Normal cerebellum. There is no intracranial hemorrhage. There are no findings of an acute ischemic infarction. Moderate mucosal thickening at the bases of the maxillary sinuses with a 10 mm retention cyst of the left maxillary sinus. CT/Brain/Head without Contrast IMPRESSION: Normal unenhanced CT scan of the brain. Incidental sinus findings as stated above. Electronically Signed: Lucero Alba MD at 17:04 EDT , Service support ,
--- NOTE | 2019-04-30 16:52 | RAD_ITS ---
STUDY: X-RAY CHEST REASON FOR EXAM: Male, 58 years old. Seizure with recent history of shortness of breath. TECHNIQUE: 2 views COMPARISON: Prior chest exam of November 04, 2018 FINDINGS: The lungs are clear and expanded. There is no demonstrated pleural abnormality. Normal size heart. Normal mediastinum and krista. Normal visualized pulmonary arteries. There is atherosclerotic tortuosity of the aortic arch and descending thoracic aorta. There are diffuse degenerative changes of the visualized thoracic spine. Normal visualized ribs, clavicles, and shoulders. There is no demonstrated abnormality of the visualized soft tissue structures of the upper abdomen. RAD/Chest PA and Lateral IMPRESSION: No acute cardiopulmonary findings or changes. Negative for new consolidation, focal atelectasis, cardiomegaly or pleural effusion. Electronically Signed: Lucero Alba MD at 17:06 EDT , Service support ,
[2019-04-30 17:00] VITALS: BP 159/99; PULSE 107; RESP 25; O2SAT 95
[2019-04-30 17:04] LABS: Absolute Neutrophil Count 4.8 X10^3/uL (2.0-7.7); Basophil# 0.03 X10^3/uL; Basophil% 0.4 % (0-1); Eosinophil# 0.03 X10^3/uL; Eosinophils% 0.4 % (0-5); Hematocrit 39.6 % (40-54); Lymphocyte % 20.4 % (19-41); Mean Corp Hgb Conc 35.4 g/gl (32-36); Mean Corpuscular Volume 90.6 fL (80-94); Mean Platelet Vol. 8.6 fl (6.2-12.0); Monocyte# 0.58 X10^3/uL; Monocyte% 8.4 % (0-10); Neutrophil # 4.82 X10^3/uL (2.7-7.7); Neutrophil % 70.3 % (47-70); POSITIVE COUNT NO; POSITIVE DIFFERENTIAL NO; POSITIVE MORPHOLOGY NO; Platelet Count 178 K/mm3 (150-450); RBC Distribution Width SD 42.5 fl (35.1-43.9); Red Blood Count 4.37 M/mm3 (4.6-6.2); White Blood Count 6.9 K/mm3 (4.4-11.0)
[2019-04-30 17:15] LABS: AST(SGOT) 36 U/L (15-37); Alanine Aminotransfer ALT/SGPT 28 U/L (16-61); Albumin, Serum 4.1 g/dL (3.2-5.0); Alkaline Phosphatase 81 U/L (45-117); Anion Gap 18 (5-15); BUN 7 mg/dL (7-18); BUN/Creat Ratio 6.5 RATIO (10-20); Bilirubin, Direct 0.15 mg/dL (0.00-0.30); Calcium,Total 8.2 mg/dL (8.5-10.1); Chloride 95 mmol/L (98-107); Creatinine, Serum 1.08 mg/dL (0.70-1.30); EST Glomerular Filtration Rate 74 mL/min (>60); Est Glom Filt Rate - Afr Amer 90 mL/min (>60); Estimated Creatinine Clearance 79.84 ml/min; Globulin 4.1 g/dL (2.2-4.2); Glucose 190 mg/dL (74-106); Protein, Total 8.2 g/dL (6.4-8.2); Sodium Level 130 mmol/L (136-145)
[2019-04-30 17:18] LABS: Alcohol, Blood (Medical)-Serum < 3.0 mg/dL
[2019-04-30 17:43] LABS: Lactic Acid 4.5 mmol/L (0.4-2.0)
--- NOTE | 2019-04-30 18:14 | ED.VISSUMM ---
- ER Visit Summary Date of Service: 04/30/19 Chief Complaint: Seizure History of Present Illness: The patient is a 58 M who is presenting to the emergency department via EMS after an apparent 42nd seizure. A neighbor reported that he was found having a seizure that lasted approximately 40 seconds. EMS was called. They found him sitting at the neighbor's apartment in a chair. He was postictal. Sensorium has since improved in route. He had a normal blood sugar. He states that he is not an alcoholic and he does not drink every day but when he does drink he is 3-5 beers per day. He has not had a drink since yesterday. The patient denies any history of delirium tremens. He states that he was in his apartment when EMS showed up and he went with them but he needs to get home soon because he has animals in his apartment is unlocked. He currently denies any complaints. Physical Examination: Afebrile noted slight tachycardia upon admission at 107 Gen: Well-nourished well-developed Head: Normocephalic atraumatic Eyes: Perrl EOMI ENT: TMs clear no rhinorrhea moist mucous membranes Neck: Supple no lymphadenopathy no JVD nontender CVS: Regular rate rhythm no murmurs normal S1-S2 Respiratory: No distress clear to auscultation bilaterally chest nontender Abdomen: Soft nontender nondistended normal bowel sounds no masses Back: Nontender Extremity: Nontender no edema Skin: Normal color no rash Neuro: alert orientated ?3 CN II-XII intact normal strength sensation reflexes gait cerebellar Psych: Normal affect normal mood Test Results: CT brain was negative. Chest x-ray negative EKG showed a sinus rhythm. Basic labs were obtained which shows an elevated lactic acid. Emergency Department Course and Treatment: Seizure precautions were undertaken. He was observed and he received IV fluids. I suspect he did have a seizure given his elevated lactic acid and the reported postictal state that has since improved. At the current time he is ANO x3 with a normal neurologic exam. The patient states that he wishes to leave AMA. He states that he does not want any of our shit. Patient appears to have the capacity to make this decision. He is advised not to drive. Impression: 1. New onset seizure 2. Left AMA This note was generated with [employer] software. It may contain incorrect words, spelling, and punctuation that were not noted in review of the chart prior to signing Capacity - Capacity Assessment Tool Can the patient make a choice & communicate that choice?: Yes Can the patient understand benefits, risks and alternatives?: Yes Can the patient make a logical, rational choice?: Yes Is the choice the patient makes consistent w/ their values?: Yes Is there an impending, emergent risk to the patient?: No Does the patient have an Advance Directive?: No Is there a Surrogate Available?: No i.e. HCPOA: No i.e. close relative (spouse, child, parent, sibling)?: No ED Disposition - Plan for ED Patient: Disposition: Against Medical Advice Instructions: SEIZURE, New Onset, Unk Cause [Adult] Referrals: Gera Velazco Chi, MD [Primary Care Provider] - As soon as possible Additional Instructions: Do not drive. Stay hydrated.
[2019-04-30 18:16] LABS: Amphetamine Urine VISTA NEGATIVE (<1000 ng/mL); Barbiturate Urine VISTA NEGATIVE (< 200 ng/mL); Benzodiazepine Urine VISTA NEGATIVE (< 200 ng/mL); Cocaine Urine VISTA NEGATIVE (< 300 ng/mL); Ecstacy Urine VISTA NEGATIVE (< 500 ng/mL); Methadone Urine VISTA NEGATIVE (< 300 ng/mL); PCP Urine VISTA NEGATIVE (< 25 ng/mL); THC Urine VISTA NEGATIVE (< 50 ng/mL); Vista UDS pH Range 6
--- NOTE | 2019-04-30 18:20 | ED.RN ---
upon entering patients room to hang the ordered fluids, pt states i dont want that shit, i want to go home Emotional support provided, education provided on the need for the IV fluids. Pt still requesting to leave. Dr. Yao made aware. Pt signed out AMA. IV removed per policy/protocol. Pt ambulates self out of ED with steady gait stating he is going to walk home.
[2019-04-30 18:31] VITALS: BP 167/103; PULSE 93; RESP 18; O2SAT 97
[2019-04-30 21:04] LABS: Reflex Lactate? Y
== END 2019-04-30 18:22 | disposition left against medical advice (07) ==
PROVIDERS: Emergency Provider Emergency Medicine; Family Provider Family Medicine Geriatric Medicine; PCP Family Medicine Geriatric Medicine
DX: R56.9 Unspecified convulsions (principal); I10 Essential (primary) hypertension; E78.00 Pure hypercholesterolemia, unspecified; Z72.0 Tobacco use; Z79.899 Other long term (current) drug therapy
CPT/HCPCS: 70450; 71046; 80048; 80076; 80307; 80320; 83605; 84484; 85025; 93005; 96360; 99285; J7030; A4216; G0480

== ENCOUNTER 2019-08-26 11:28 | Emergency (ER) | payer MEDICARE, SELFPAY ==
[2019-08-26 11:29] VITALS: PULSE 86; RESP 18; TEMP 36.4; O2SAT 100; BMI 25.7
--- NOTE | 2019-08-26 11:38 | CT_ITS ---
STUDY: CT SOFT TISSUE NECK WITH CONTRAST REASON FOR EXAM: Male, 58 years old. Facial and throat swelling, possible allergic reaction RADIATION DOSAGE (If Supplied By Facility): CTDIvol = ( 19.87 ) mGy, DLP = ( 650.20 ) mGycm TECHNIQUE: The patient was scanned in a multi-detector CT scanner. High resolution transaxial imaging was performed following intravenous administration of IV Isovue 300 75mL. Sagittal and coronal images were reconstructed. Individualized dose optimization techniques were used for this CT. COMPARISON: None. FINDINGS: Normal bilateral parotid glands. Normal bilateral senior partner spaces. Normal bilateral parapharyngeal spaces. Normal bilateral carotid spaces. Dense atherosclerotic calcifications noted in both common carotid artery bulbs. Normal bilateral sublingual and submandibular glands and spaces. Normal visualized nasopharynx. Normal retropharyngeal space. Normal perivertebral space. Normal visualized bilateral faucial tonsils. The visualized tongue, tongue base and oropharynx are normal. The visualized cervical lymph nodes (levels I-) are within normal size limits, and maintain normal morphology. There is no demonstrated solid or cystic mass lesion. There is no abnormal contrast enhancement. Normal epiglottis, bilateral vallecula and hypopharynx. The pre-epiglottic and paraglottic adipose spaces are normal. Normal visualized bilateral piriform sinuses, aryepiglottic folds, vocal cords, and arytenoid-cricoid articulations. Normal subglottic trachea. Normal bilateral lobes of the thyroid gland. Normal visualized pulmonary apices. Normal visualized paranasal sinuses. Normal visualized cervical spine. CT/Soft Tissue Neck WITH Contrast IMPRESSION: No suspicious enhancing lesion. No airway narrowing or deviation Dense atherosclerotic calcifications in both common carotid artery bulbs. No suspicious bulky adenopathy, subcentimeter jugular chain lymph nodes noted. Electronically Signed: Romario Sutton MD at 12:23 EST , Service support ,
[2019-08-26 11:49] LABS: Absolute Lymphocyte Count 1.55 X10^3/uL (0.83-4.51); Absolute Neutrophil Count 5.7 X10^3/uL (2.0-7.7); Basophil# 0.03 X10^3/uL; Basophil% 0.4 % (0-1); Eosinophil# 0.04 X10^3/uL; Eosinophils% 0.5 % (0-5); Hematocrit 45.5 % (40-54); Lymphocyte # 1.55 X10^3/ul (4.0); Lymphocyte % 19.3 % (19-41); Mean Corp Hgb Conc 35.2 g/dL (32-36); Mean Corpuscular Hgb 32.7 pg (27.0-32.0); Mean Corpuscular Volume 92.9 fL (80-94); Mean Platelet Vol. 8.3 fl (6.2-12.0); Monocyte# 0.73 X10^3/uL; Monocyte% 9.1 % (0-10); NRBC Flagged by Analyzer 0 % (0-5); Neutrophil # 5.68 X10^3/uL (2.7-7.7); Neutrophil % 70.5 % (47-70); Platelet Count 206 K/mm3 (150-450); RBC Distribution Width CV 13.4 % (11.6-14.6); RBC Distribution Width SD 45.5 fl (35.1-43.9); White Blood Count 8.1 K/mm3 (4.4-11.0)
[2019-08-26] MEDS: DiphenhydrAMINE 50 MG/ML Syringe 25 MG IV (11:49)
[2019-08-26] MEDS: MethylPREDNISolone 125 MG/2 ML Vial IV (11:50)
[2019-08-26] MEDS: Famotidine 200 MG/20 ML MDV 20 MG in 0.9% Normal Saline (Pres. free 8 ML 300 MG IV (11:53)
[2019-08-26 11:59] VITALS: BP 169/89; PULSE 79; RESP 11; O2SAT 100
[2019-08-26 12:04] LABS: Anion Gap 15 (5-15); BUN 8 mg/dL (7-18); Chloride 88 mmol/L (98-107); Creatinine, Serum 0.89 mg/dL (0.70-1.30); EST Glomerular Filtration Rate 92 mL/min (>60); Est Glom Filt Rate - Afr Amer 112 mL/min (>60); Estimated Creatinine Clearance 96.88 ml/min; Glucose 163 mg/dL (74-106); Potassium 2.9 mmol/L (3.5-5.1); Sodium Level 127 mmol/L (136-145)
[2019-08-26 12:29] VITALS: BP 151/85; PULSE 76; RESP 14; O2SAT 99
--- NOTE | 2019-08-26 12:35 | ED.VISSUMM ---
- ER Visit Summary Date of Service: 08/26/19 Chief Complaint: Allergic reaction History of Present Illness: The patient is a 58 M who presents for a possible allergic reaction. He took lisinopril this morning and has a history of angioedema. He noticed some swelling to his throat and reports a hoarse voice. Symptoms started suddenly after taking the lisinopril. He denies any other associated symptoms like wheezing or shortness of breath. Denies headache or mental status changes. Denies any GI symptoms. Denies rash or fever. Denies any other ingestions. Denies recent illness. Physical Examination: Afebrile and vital signs are unremarkable. Sitting, moving, breathing comfortably. No acute distress. HEENT exam shows oral pharyngeal erythema but no evidence of mass, swelling, or other lesion. Good range of motion of his neck. No lymphadenopathy or meningeal signs. Heart regular. Lungs clear. Skin appears normal. Test Results: CBC normal. Sodium 127, stable, potassium 2.9, stable, chloride 88, glucose 163. CT of his neck showed no lesions. Normal airway. He does have carotid plaques. Emergency Department Course and Treatment: Patient was placed on a monitor. He does not have objective signs of angioedema, but does have a history and reports voice change. He was treated with Solu-Medrol, Pepcid, Benadryl, and he was monitored. His labs were all fairly stable. His potassium was 2.9, and I did treat him for this. I advised him to follow-up with his PCP for recheck regarding these labs. CT showed no evidence of swelling or airway compromise. Clinically, he does not have angioedema. Although he has a history of angioedema, and he did take lisinopril, I do not see evidence of any reaction. Nothing to suggest anaphylaxis or shock. On reevaluation, patient is stable or slightly improved. I believe he is appropriate for outpatient care. He will avoid lisinopril and KAYLYN inhibitors. Will prescribe a course of Solu-Medrol, Pepcid, and Benadryl, as I think it will help with his symptoms. I do not believe he has any indication for further monitoring or hospitalization. Patient will be discharged home. Return for any new or worsening issues. Treatment Plan: As above Disposition: Discharge Impression: 1. Pharyngitis 2. Hypokalemia This note was generated with Cort[employer] software. It may contain incorrect words, spelling, and punctuation that were not noted in review of the chart prior to signing ED Disposition - Plan for ED Patient: Referrals: Gera Velazco Chi, MD [Primary Care Provider] -
--- NOTE | 2019-08-26 12:39 | ED.DEP ---
ED Disposition - Plan for ED Patient: Instructions: Self-Care for Sore Throats Prescriptions: DiphenhydrAMINE [Benadryl] 25 mg PO TID PRN PRN #15 cap PRN Reason: Swelling Prescription Printed Famotidine [Pepcid] 20 mg PO BID #10 tab Prescription Printed Prednisone 10 mg PO UD #33 tab Prescription Printed Referrals: Gera Velazco Chi, MD [Primary Care Provider] -
== END 2019-08-26 12:48 | disposition home or self-care (01) ==
LOC: ED 11:51
PROVIDERS: Emergency Provider Emergency Medicine; Family Provider Family Medicine Geriatric Medicine; PCP Family Medicine Geriatric Medicine
DX: J02.9 Acute pharyngitis, unspecified (principal); E87.6 Hypokalemia; L50.0 Allergic urticaria; E78.5 Hyperlipidemia, unspecified; I10 Essential (primary) hypertension; F17.200 Nicotine dependence, unspecified, uncomplicated; Z79.899 Other long term (current) drug therapy
CPT/HCPCS: 70491; 80048; 85025; 96365; 96374; 96375; 99284; 99285; Q9967; A4216; J3490

== ENCOUNTER 2019-08-26 15:08 | Emergency (ER) | payer MEDICARE, SELFPAY ==
[2019-08-26 11:29] VITALS: BMI 25.7
[2019-08-26 15:09] VITALS: BP 176/106; PULSE 96; RESP 17; TEMP 36.4; O2SAT 99; BMI 25.7
--- NOTE | 2019-08-26 15:33 | ED.VIS.GEN ---
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 This occurred shortly after taking lisinopril. He denies difficulty swallowing solids or liquids. He denied respiratory or cardiac symptoms. He denies GI symptoms. He denied rash or itching until he left the emergency department. Rash and itching started approximately 1 hour prior to presentation. Patient denies eating or taking anything since he left. He states he began to itch and used a wet cold washcloth to wipe his upper and lower extremities. He states this did not help. He was unaware that he has a rash involving the chest, abdomen and back. There are areas of excoriation on his hands from him itching. Patient denies any other symptoms. Prior similar symptoms: Yes Recent Illness/Hospitalization: Yes - Past Medical History (1) Angioedema of lips Status: Acute (2) Hyperlipidemia Status: Acute (3) Hypertension Status: Chronic Past Medical History - Allergies and Home Meds Allergies/Adverse Reactions: Allergies lisinopril Allergy (Verified 08/26/19 15:09) Angioedema peanut Allergy (Verified 08/26/19 15:09) Hives Primary Care Physician: Gera Velazco Chi, MD [Primary Care Provider] - Prior records reviewed: Yes Surgical History: - - Pins and plates in left forearm Lives: Alone Smoking Status: Current every day smoker Alcohol: None Drugs: None Review of Systems General: Reports: Weight loss. Denies: Chills, Fever, Subjective, Sweats Eyes: Denies: Visual changes - bilaterally, Blurred Vision - bilaterally, Diplopia ENT: Reports: - - States lip does not feel as swollen. Reports no change in his voice. Since Dr. Fidel munroe was still in the department had him see patient. He states the rash is new. There is no change in his voice. Auscultation of the neck reveals inspiratory and expiratory sturdor. . Denies: Bilateral ear pain, Rhinorrhea, Sore throat Cardiovascular: Denies: Chest pain, Palpitations Respiratory: Denies: Dyspnea, Cough, Dyspnea on exertion Gastrointestinal: Denies: Abdominal pain, Nausea, Vomiting, Diarrhea, Melena, Hematochezia Genitourinary: Denies: Dysuria, Hematuria, Frequency Musculoskeletal: Denies: Back pain, Extremity Pain Skin: Reports: Rash. Denies: Wounds Neurological: Denies: Headache, Weakness, Numbness Hematologic: Denies: Easy bruising, Easy bleeding Allergy: Reports: Uticaria, Swelling of the mouth. Denies: Swelling of the tongue Physical Exam Vital Signs/Narrative: Vital Signs Temp Pulse Resp BP Pulse Ox 08/26/19 15:09 97.6 F L 96 17 176/106 H 99 Inital Vital Signs reviewed: Yes General: Well nourished, Well developed, No Acute Distress Head: Normocephalic, Atraumatic Eyes: Perrl, EOMI. Negative for: Pale conjunctiva, Scleral icterus ENT: Moist mucous membranes, No rhinorrhea, - - Inspiratory and expiratory sturdor. Neck: Supple, Nontender Cardiovascular: Regular rate, Regular rhythm, No murmurs, Normal S1, Normal S2 Respiratory: No distress, CTA bilaterally, Chest nontender. Negative for: Rales, Rhonchi, Wheezing Abdomen: Soft, Nontender, Nondistended, Normal bowel sounds Back: Nontender, Normal Inspection Extremities: Nontender, No edema Skin: Normal color, Rash - Rash is erythematous raised in some areas. It is blotchy and confluent. Neurological: Alert, Oriented x3, Cranial nerves II-XII grossly intact, Normal Strength, Normal Sensation Psychological: Normal affect, Normal Mood Diagnostic/Tx/Re-eval - Medical Decision Making Prior ER visit records were reviewed. There is confusion regarding whether there was a was in angioedema. Currently there was some swelling after speaking with Dr. Fidel Elam. IV was established. Patient was then made n.p.o. He will receive H1 H2-jonathan and Solu-Medrol. Will observe for 2 to 4 hours. If no improvement will contact hospitalist for observation status. Patient was reassessed at 1800. His voice is still hoarse. There is no stridor. His rash has resolved. His itching is resolved. Instructed to get the medication he was prescribed after his first visit. He was prescribed Benadryl, Pepcid and prednisone. ED Disposition - Plan for ED Patient: Disposition: Home or Assisted Living Diagnosis: Urticaria Instructions: Hives Referrals: Gera Velazco Chi, MD [Primary Care Provider] - 3-5 Days Additional Instructions: You need to follow-up with your primary care provider Dr. Velazco for allergy testing to determine what caused the swelling and hives.
[2019-08-26] MEDS: MethylPREDNISolone 125 MG/2 ML Vial IV (15:47)
[2019-08-26] MEDS: DiphenhydrAMINE 50 MG/ML Syringe 25 MG IV (15:47)
[2019-08-26 15:48] VITALS: BP 177/111; PULSE 91; RESP 18; O2SAT 98
[2019-08-26] MEDS: Famotidine 200 MG/20 ML MDV 20 MG in 0.9% Normal Saline (Pres. free 8 ML 300 MG IV (15:55)
[2019-08-26 18:15] VITALS: BP 179/117; PULSE 85; RESP 18
== END 2019-08-26 18:15 | disposition home or self-care (01) ==
PROVIDERS: Emergency Provider Emergency Medicine; Family Provider Family Medicine Geriatric Medicine; PCP Family Medicine Geriatric Medicine
DX: L50.0 Allergic urticaria (principal); E78.5 Hyperlipidemia, unspecified; I10 Essential (primary) hypertension; Z79.899 Other long term (current) drug therapy; F17.200 Nicotine dependence, unspecified, uncomplicated
CPT/HCPCS: 96374; 96375; 99284; A4216; J3490

== ENCOUNTER → 2019-11-18 | Outpatient (CLI) | payer MEDICARE, SELFPAY ==
--- NOTE | 2019-11-18 11:44 | RAD_ITS ---
STUDY: X-RAY - LUMBAR SPINE REASON FOR EXAM: Male, 59 years old. LOW BACK PAIN TECHNIQUE: 3 view(s) of the lumbar spine were obtained. COMPARISON: None FINDINGS: There is normal alignment and curvature of the lumbosacral spine with no acute fractures or dislocations but with a spur from the anterior superior corner of L5. The disc spaces are well maintained. The pedicles are intact and the paravertebral shadows are normal. RAD/Lumbar Spine 2 or 3 Views IMPRESSION: No fracture. No Intervertebral osteochondrosis. A small spur from the anterior superior corner of L5 Electronically Signed: Froylan Barone MD at 7:28 EST Tel , Service support ,
--- NOTE | 2019-11-18 11:47 | RAD_ITS ---
STUDY: X-RAY - SACRUM/COCCYX REASON FOR EXAM: Male, 59 years old. LOW BACK PAIN TECHNIQUE: 3 view(s) of the sacrum and coccyx were obtained. COMPARISON: None. FINDINGS: There is a mild retrolisthesis of L5 over S1. No fractures. The sacroiliac and hip joints are normal. A 3.6 x 2.2 cm focal area of lucency in the left femoral neck. RAD/Sacrum-Coccyx min 2 Views IMPRESSION: No fracture. A mild retrolisthesis of L5 over S1 Electronically Signed: Froylan Barone MD at 7:32 EST Tel , Service support ,
== END | disposition home or self-care (01) ==
LOC: RAD 11:42
PROVIDERS: PCP Nurse Practitioner Family; Referring Provider Nurse Practitioner Family; Visit Provider Nurse Practitioner Family
DX: M54.5 Low back pain (principal)
CPT/HCPCS: 72100; 72220

== ENCOUNTER → 2019-12-09 | Outpatient (CLI) | payer MEDICARE, SELFPAY ==
--- NOTE | 2019-12-09 15:30 | RAD_ITS ---
HISTORY: PATIENT KEEPS FALLING AND IS HAVING HIP PAIN EXAM: Pelvis COMPARISON: An abdominal x-ray from a barium enema dated October 09, 2010 shows the pelvis FINDINGS: # of images incl. paperwork: 1 Right hemipelvic phleboliths are greater. Calcific atherosclerotic plaque within the internal iliac arteries is greater. Well marginated corticated lucent lesion within the left femoral neck appears to be smaller and more corticated than on the previous study. This is likely a benign lesion. No acute fracture of pelvis. Proximal femurs are intact. Sacroiliac joints and hip joints are normal. Femoral heads are adequately seated in their respective acetabulae. RAD/Pelvis 1 or 2 Views IMPRESSION: No acute pathology of the pelvis perceived. Sclerotic marginated shrinking lesion within the left femoral neck since 2009 suggests a benign process.. at 0615 Reported and signed by: Marcelino Mcqueen MD Electronically Signed: Marcelino Mcqueen MD at 6:15 EST Tel , Service support ,
--- NOTE | 2019-12-09 15:30 | RAD_ITS ---
STUDY: X-RAY - LEFT FEMUR REASON FOR STUDY: Male, 59 years old. PATIENT KEEPS FALLING AND IS HAVING HIP PAIN TECHNIQUE: 2 view(s) of the femur. COMPARISON: Prior barium enema exam from October 09, 2010. FINDINGS: Benign appearing, well marginated geographic lytic lesion of the femoral neck measuring 4.1 x 1.7 cm identical in appearance to that of October 09, 2010 indicating benign lesion. There is no evidence of pathologic or nonpathologic fracture of the femur. Normal visualized soft tissue structure. Minimal narrowing of the hip joint without other arthritic or degenerative changes. RAD/Femur Min 2 Views IMPRESSION: Negative for fracture. Negative for acute bone findings or changes. Minimal narrowing of the left hip joint without other arthritic or degenerative changes. A 4.1 x 1.7 cm well marginated lytic lesion appears in the left femoral neck with a benign appearing sclerotic rim and is unchanged from a prior exam of October 09, 2010. Possibilities include bone infarct, nonossifying fibroma, epidermoid inclusion cyst, subchondral cyst, intraosseous ganglion, enchondroma and fibrous dysplasia. There is no evidence of pathologic fracture. Electronically Signed: Lucero Alba MD at 16:02 EST , Service support ,
== END | disposition home or self-care (01) ==
LOC: RAD 15:21
PROVIDERS: PCP Nurse Practitioner Family; Referring Provider Nurse Practitioner Family; Visit Provider Nurse Practitioner Family
DX: R93.6 Abnormal findings on diagnostic imaging of limbs (principal)
CPT/HCPCS: 72170; 73552

== ENCOUNTER 2020-01-05 15:07 | Observation (INO) | payer MEDICARE, MEDICAID, SELFPAY ==
[2020-01-05] VITALS (20 sets, daily range): BP systolic 169–190; BP diastolic 92–106; PULSE 86–111; RESP 15–24; TEMP 36.4–38.3; O2SAT 90–100; BMI 26.9; BMI 26.4; BMI 26.5
--- NOTE | 2020-01-05 15:29 | EKG12_ITS ---
Test Reason : Blood Pressure : / mmHG Vent. Rate : 098 BPM Atrial Rate : 098 BPM P-R Int : 124 ms QRS Dur : 110 ms QT Int : 394 ms P-R-T Axes : -14 -38 047 degrees QTc Int : 503 ms Normal sinus rhythm Left axis deviation Inferior infarct (cited on or before 30-APR-2019) Prolonged QT Abnormal ECG Confirmed by JUAN JOSE FULLER ([id number]), senior editor TYRONE CALERO ([id number]) on 01/09/2020 11:00:32 AM Referred By: EMILY Confirmed By:JUAN JOSE FULLER
--- NOTE | 2020-01-05 15:33 | ED.DCSUM_ITS ---
- ER Visit Summary Date of Service: 01/05/20 Chief Complaint: Weakness and dizziness History of Present Illness: The patient is a 59 M who presents with weakness and dizziness that began today. Patient states it feels like a spinning sensation. Patient states he has had symptoms like this in the past. Patient states that improves when he drinks ice water. Patient admits to subjective fevers and chills. Patient also admits to some sweats. Patient states he has had some rhinorrhea and a cough with white and brown sputum. Patient denies any chest pain or shortness of breath. Patient admits to nausea and dry heaves. Patient denies any diarrhea. Patient admits to a mild headache. Physical Examination: Vital signs show an elevated blood pressure of 186/99, tachycardia of 109, and a mild tachypnea of 20. Patient is afebrile. Pulse oximeter is 92% on room air. Patient is in no acute distress. Oral mucosa is pink and moist. Oropharynx is clear. Neck is supple. Trachea is midline. There is no JVD. Heart was regular and tachycardic. Lungs showed scattered rhonchi. There is good respiratory effort noted. Abdomen is soft. Bowel sounds are normal. There is no tenderness. Cranial nerves II through XII are intact. There are no focal motor or sensory deficits noted. Extremities are intact. There is no calf tenderness or edema. Test Results: EKG showed normal sinus rhythm with a rate of 98. There are no acute ST or T wave changes. This is unchanged compared to previous EKG dated 04/30/2019. PA and lateral chest x-ray was obtained. There is no acute cardiopulmonary process. This was interpreted by the radiologist and reviewed by myself. CBC shows a mild anemia with hemoglobin of 12.5 and hematocrit 36.8. Comprehensive metabolic profile was essentially within normal limits. PT with INR and PTT were normal. Urinalysis does not show any evidence of urinary tract infection. Lactate was elevated at 3.6. Emergency Department Course and Treatment: Patient was given IV fluids. Patient met SIRS criteria therefore a sepsis work-up was initiated. Patient was given IV fluids. Patient was feeling better on reevaluation. Patient was started on Levaquin and as likely source of his infection. Case was discussed with the hospitalist. He stated that since the patient has no source of infection the patient cannot be in septic shock. He will admit the patient to the floor. Patient understands and is agreeable with the plan. All questions were answered. Disposition: Admit to hospital for observation Impression: 1. SIRS 2. Lactic acidosis This note was generated with ahoyDoc dictation software. It may contain incorrect words, spelling, and punctuation that were not noted in review of the chart prior to signing ED Disposition - Plan for ED Patient: Disposition: Acute [facility] Diagnosis: SIRS (systemic inflammatory response syndrome), Lactic acidosis Referrals: Thania Herrmann MD [Primary Care Provider] -
[2020-01-05] MEDS: 0.9% Normal Saline 1,000 ML 999 ML IV (15:47)
[2020-01-05] MEDS: diazePAM 5 MG Tablet 2.5 MG PO (15:48)
--- NOTE | 2020-01-05 15:57 | ED.RN ---
[employer] FOR [facility] WAS MADE AWARE THAT PT IS HERE IN THE ER. PT REQUESTED SHE BE MADE AWARE.
[2020-01-05 16:03] LABS: Absolute Lymphocyte Count 0.89 X10^3/uL (0.83-4.51); Absolute Neutrophil Count 4.4 X10^3/uL (2.0-7.7); Basophil# 0.04 X10^3/uL; Basophil% 0.7 % (0-1); Eosinophil# 0.13 X10^3/uL; Eosinophils% 2.2 % (0-5); Hematocrit 36.8 % (40-54); Hemoglobin 12.5 g/dL (13.0-16.5); Lymphocyte # 0.89 X10^3/ul (4.0); Lymphocyte % 14.8 % (19-41); Mean Corpuscular Hgb 32.8 pg (27.0-32.0); Mean Corpuscular Volume 96.6 fL (80-94); Mean Platelet Vol. 8.4 fl (6.2-12.0); Monocyte# 0.56 X10^3/uL; Monocyte% 9.3 % (0-10); NRBC Flagged by Analyzer 0 % (0-5); Neutrophil # 4.36 X10^3/uL (2.7-7.7); Neutrophil % 72.7 % (47-70); Platelet Count 177 K/mm3 (150-450); RBC Distribution Width CV 13.8 % (11.6-14.6); RBC Distribution Width SD 49.1 fl (35.1-43.9); Red Blood Count 3.81 M/mm3 (4.6-6.2)
--- NOTE | 2020-01-05 16:10 | RAD_ITS ---
STUDY: X-RAY CHEST REASON FOR EXAM: Male, 59 years old. weakness, dizziness, diaphoretic, Hx HTN, AFIB TECHNIQUE: PA and lateral views of the chest. COMPARISON: 04/30/2019 FINDINGS: The lungs are clear and expanded. There is no demonstrated pleural abnormality. Normal size heart. Normal mediastinum and krista. Normal visualized pulmonary arteries. Normal visualized aortic arch and descending thoracic aorta. Normal visualized thoracic spine. Normal visualized ribs, clavicles, and shoulders. There is no demonstrated abnormality of the visualized soft tissue structures of the upper abdomen. RAD/Chest PA and Lateral IMPRESSION: Normal x-ray examination of the chest. Electronically Signed: Rada Murcia DO at 16:26 EDT Tel , Service support ,
[2020-01-05 16:17] LABS: ALB/GLOB Ratio 0.7 RATIO (0.9-2.4); AST(SGOT) 77 U/L (15-37); Alanine Aminotransfer ALT/SGPT 45 U/L (16-61); Albumin, Serum 3.4 g/dL (3.2-5.0); Alkaline Phosphatase 127 U/L (45-117); Anion Gap 10 (5-15); BUN 4 mg/dL (7-18); BUN/Creat Ratio 6.2 RATIO (10-20); Calcium,Total 8.7 mg/dL (8.5-10.1); Chloride 98 mmol/L (98-107); Creatinine, Serum 0.64 mg/dL (0.70-1.30); EST Glomerular Filtration Rate 135 mL/min (>60); Est Glom Filt Rate - Afr Amer 163 mL/min (>60); Globulin 5.1 g/dL (2.2-4.2); Glucose 182 mg/dL (74-106); Potassium 3.4 mmol/L (3.5-5.1); Protein, Total 8.5 g/dL (6.4-8.2); Sodium Level 130 mmol/L (136-145)
[2020-01-05 16:55] LABS: International Normalized Ratio 1.1
[2020-01-05 16:56] LABS: Partial Thromboplast Time 34.9 Seconds (24.1-36.2)
[2020-01-05 17:05] LABS: Lactic Acid 3.6 mmol/L (0.4-1.9)
[2020-01-05 17:35] LABS: Bacteria 0 SEEN /hpf (None Seen); Mucous, Urine 0 SEEN /hpf (<or=2+)
[2020-01-05 17:37] LABS: Color, Urine Straw (Yellow); Glucose, Dipstick Normal (Normal); Ketone-Dipstick Negative (Negative); Leukocyte Esterase-Dipstick 25 /ul (Negative); Nitrite-Dipstick Negative (Negative); Occult Blood-Urine Negative /ul (Negative); Protein-Dipstick Negative (Negative); Urine Bilirubin Dipstick Negative (Negative); Urine Clarity Clear (Clear); Urine Urobilinogen Normal (Normal)
[2020-01-05 18:26] LABS: Squamous Epithelial Cells - UA 0-5 SEEN /hpf (0-5)
[2020-01-05 18:27] LABS: Hyaline Cast 0-5 SEEN /lpf (0-5)
[2020-01-05 18:28] LABS: Red Blood Cells-Urine 0-5 SEEN /hpf (0-5); Transitional Epithelial - Ur 0-5 SEEN /hpf (0-5); White Blood Cells 0-5 SEEN /hpf (0-5)
--- NOTE | 2020-01-05 19:05 | PCM.HP.STD ---
History of Present Illness Date of Admission: 01/05/20 Chief Complaint: weakness and dizziness The patient is a 59 year old M who is been feeling weak and dizzy for the past several days. Patient has been coughing over the past week or so is been minimally productive. Patient just not feeling well and was brought to the hospital. Patient underwent a work-up where he had a negative chest x-ray as well as urinalysis. Patient's white count was normal but lactic acid was performed and was 3.6. Patient did receive IV fluids in the emergency room. Patient otherwise feels well at this time. And feels short of breath but no not far off from baseline. [] Past Medical History Past Medical History (Chronic Problems): Chronic Problems (Last Updated 08/08/18 @ 22:[address] Clay Choi MD) Hypertension (Chronic) Medical History: Medical History (Last Updated 01/05/20 @ 19:[address] Chapin Simpson DO) Seizure R56.9 Anxiety F41.9 Bipolar disorder F31.9 Allergies lisinopril Allergy (Verified 01/05/20 15:09) Angioedema peanut Allergy (Verified 01/05/20 15:09) Hives Home Medications: Ambulatory Orders Medication Instructions Recorded Fluoxetine [Prozac] 60 mg PO DAILY 08/06/15 Acamprosate Calcium 666 mg PO TID 01/05/20 Atorvastatin Calcium [Lipitor] 40 mg PO QHS 01/05/20 Cholecalciferol (Vitamin D3) 50,000 unit PO MO 01/05/20 [D3-50] Melatonin 10 mg PO QHS 01/05/20 Naproxen 500 mg PO BID 01/05/20 Quetiapine Fumarate [Quetiapine 800 mg PO QHS 01/05/20 Fumarate ER] Surgical History: - - Pins and plates in left forearm Psychiatric History: Anxiety, Bipolar Smoking Status: Current every day smoker Tobacco Use: Pipe - *Family History Maternal Family History: Family History (Last Reviewed 01/05/20 @ 19:[address] Chapin Simpson DO) Father Myocardial infarction Mother Stomach cancer Review of Systems Constitutional: Reports: Chills. Denies: Anorexia, Fever Eyes: Denies: Blurred vision, Double vision HEENT: Reports: Nasal Congestion. Denies: Head Aches, Sinus Congestion, Sinus Drainage Cardiovascular: Denies: Chest Pain, Edema Respiratory: Reports: Cough, Shortness of Breath Gastrointestinal: Denies: Abdominal Pain, Nausea, Vomiting Genitourinary: Denies: Dysuria Musculoskeletal: Denies: Joint Pain, Joint Tenderness Skin: Denies: Dryness, Jaundice Neurological: Denies: Numbness, Tingling, Focal weakness Psychiatric: Denies: Anxiety, Depression Hematologic/ Lymphatic: Denies: Easy Bruising, Easy Bleeding, Hx of blood clot Comment: All review of systems were negative except as mentioned above in the history of present illness and the other review of systems. VTE Information - Inpt Only VTE Present on Admission: No VTE Mechan Device Prophylaxis: None VTE Pharm Prophylaxis ordered?: No Reason prophylaxis not ordered:: Treatment Not Indicated - Physical Exam Vitals/I&O's: Vital Signs Temp Pulse Resp BP Pulse Ox 36.9 C 98 20 H 187/97 H 97 01/05/20 18:00 01/05/20 18:00 01/05/20 18:00 01/05/20 18:30 01/05/20 18:00 Oxygen Flow Rate (L/min) 2 Oxygen Delivery Method Nasal Cannula Weight: 87.7 kg Body Mass Index (BMI) 26.9 Intake and Output for Last 24 Hours 01/03/20 01/04/20 01/05/20 23:59 23:59 23:59 Intake Total 1000 / 1000 Balance 1000 / 1000 General: Alert, Cooperative, No apparent distress HEENT: Atraumatic, PERRLA - Right lateral nystagmus that fatigues with sustained gaze., Normocephalic Oral: Moist Mucosa, No Gingival or Mucosal Lesions/ Ulcerations Neck: No Nodes, Trachea Midline Lungs: Clear to auscultation, Normal air movement, No rhonchi, No wheeze, No rales Cardiovascular: Regular rate, Regular Rhythm, Normal S1, Normal S2, No murmurs Abdomen: Bowel Sounds Present, Soft, Non Tender, Non-Distended, No Hepato-splenomegaly Extremities: No edema, No Calf Tenderness Skin: No rashes, No breakdown Musculoskeletal: No Tenderness to Palpation of Joints or Extremities, No Muscle Wasting Neurological: Muscle tone normal, Coordination normal Psych/Mental Status: Normal Affect, Appropriate Laboratory Results 01/05/20 15:30: WBC 6.0, RBC 3.81 L, Hgb 12.5 L, Hct 36.8 L, MCV 96.6 H, MCH 32.8 H, MCHC 34.0, RDW Std Deviation 49.1 H, RDW Coeff of William 13.8, Plt Count 177, MPV 8.4, Immature Gran % (Auto) 0.300, Neut % (Auto) 72.7 H, Lymph % (Auto) 14.8 L, Burt % (Auto) 9.3, Eos % (Auto) 2.2, Baso % (Auto) 0.7, Absolute Neuts (auto) 4.4, Absolute Lymphs (auto) 0.89, Nucleated RBC % 0 01/05/20 15:30: PT 14.0, INR 1.1, APTT 34.9 01/05/20 15:30: Sodium 130 L, Potassium 3.4 L, Chloride 98, Carbon Dioxide 22.0, Anion Gap 10, BUN 4 L, Creatinine 0.64 L, Estim Creat Clear Calc 129.10, Est GFR (MDRD) Af Amer 163, Est GFR (MDRD) Non-Af 135, BUN/Creatinine Ratio 6.2 L, Glucose 182 H, Calcium 8.7, Total Bilirubin 0.60, AST 77 H, ALT 45, Alkaline Phosphatase 127 H, Total Protein 8.5 H, Albumin 3.4, Globulin 5.1 H, Albumin/Globulin Ratio 0.7 L 01/05/20 15:30: Lactic Acid 3.6 H* 01/05/20 17:20: Urine Color Straw, Urine Clarity Clear, Urine pH 7.0, Ur Specific [place] 1.010, Urine Protein Negative, Urine Glucose (UA) Normal, Urine Ketones Negative, Urine Occult Blood Negative, Urine Nitrite Negative, Urine Bilirubin Negative, Urine Urobilinogen Normal, Ur Leukocyte Esterase 25 H, Urine RBC 0-5 SEEN, Urine WBC 0-5 SEEN, Ur Squamous Epith Cells 0-5 SEEN, Ur Transition Epith Cell 0-5 SEEN, Urine Bacteria 0 SEEN, Hyaline Casts 0-5 SEEN, Urine Mucus 0 SEEN Current Medications Sodium Chloride () 250 mls @ 15 mls/hr IV .[id number] PRN PRN Reason: Additional IVPB Infusion Assessment/Plan All Active Problems (Last Updated 08/08/18 @ 22:[address] Clay Choi MD) Angioedema of lips (Acute) Hyperlipidemia (Acute) 1. Systemic inflammatory response syndrome: Noted that patient had a lactic acid of 3.6 though I do not feel the patient is in severe sepsis. We will give the patient some additional fluids but will not further pursue an aggressive severe sepsis work-up at this time. Patient does have an infection may be viral. Levaquin was ordered in the emergency room but I discontinued that. I will check the patient for influenza as well as RSV given the limited supply of the respiratory panel that we have. Will need to rule out anything else before he can be evaluated for coronavirus. Patient will be in droplet isolation. Given the dearth of testing for coronavirus we would unlikely be able to check him for that while he was here. My clinical suspicion, however, for coronavirus is low. 2. Lactic acidosis: Of note patient has had this in the past. Apparently patient had a seizure with that episode. He denies any seizure currently now. Currently he is hemodynamically stable. As to the etiology of the lactic acidosis I do not have a clear explanation. Review of his medications does not reveal any obvious culprits. 3. Vertigo: Suspect benign paroxysmal positional vertigo. Patient does have lateral going nystagmus. Will put the patient on meclizine as well as have him see physical therapy for vestibular rehab.. Of note, the Campral that he takes can cause dizziness so that will be held for now. 4. VTE prophylaxis: Low risk as he is can be observation status. 5. Advanced care planning: Patient wishes to be full CODE STATUS. OBSV E&M: [id number] Initial observation care L3
[2020-01-05 19:55] LABS: Reflex Lactate? Y
[2020-01-05] MEDS: 0.9% Normal Saline 1,000 ML 150 ML IV (20:33)
[2020-01-05] MEDS: 0.9% Saline Lock 10 ML Syringe IV (20:34)
[2020-01-05 20:51] LABS: Lactic Acid 0.8 mmol/L (0.4-1.9)
[2020-01-05] MEDS: Ibuprofen 400 MG Tablet PO (20:58)
--- NOTE | 2020-01-05 22:48 | EKG12_ITS ---
Test Reason : ALLERGIST Blood Pressure : / mmHG Vent. Rate : 098 BPM Atrial Rate : 098 BPM P-R Int : 176 ms QRS Dur : 092 ms QT Int : 392 ms P-R-T Axes : 068 -11 051 degrees QTc Int : 500 ms Normal sinus rhythm Prolonged QT Abnormal ECG When compared with ECG of 05-JAN-2020 15:47, MANUAL COMPARISON REQUIRED, DATA IS UNCONFIRMED Confirmed by WALTER GARCIA, HIRO ([id number]), purchase request editor JEFFERY COSTA ([id number]) on 01/10/2020 10:02:33 AM Referred By: GARRY Confirmed By:HIRO WATSON MD
[2020-01-05] MEDS: LORazepam 2 MG/ML Syringe 1 MG IV (22:50)
--- NOTE | 2020-01-05 23:01 | PCM.PN.BLA ---
Progress Note CODE BLUE was called. However patient had been a rapid response since patient did not lose pulse or stopped breathing. Reportedly, patient was being helped to use urinal. Patient began to stare and had a general body convulsion. She was assessed at the bedside. Patient is alert and confused. Has an S1-S2 present lungs clear to auscultate Abdomen soft and nontender. Extremities without edema. Impression Alcohol withdrawal seizures. Patient has been given 1 mg of Ativan. Of note patient takes acamprosate. On presentation because patient complained of dizziness plan of care was to hold his acamprosate. With seizures developing wanted to resume his home acamprosate. However acamprosate is nonformulary and is now stuck at a hospital. Will put patient on Ativan p.o. and PRN. Will resume home Seroquel. If patient has any other seizures will transferred to the intensive care and begin Precedex. STROKE Vital Signs/Narrative: Vital Signs Temp Pulse Resp BP Pulse Ox 01/05/20 22:59 96 01/05/20 21:23 98 01/05/20 20:14 98.1 F 89 18 169/99 H 98 01/05/20 20:04 20 H 01/05/20 19:39 104 H 15 177/92 H 95 01/05/20 19:38 98.4 F 01/05/20 19:18 97.6 F L 111 H 18 173/98 H 98
--- NOTE | 2020-01-05 23:05 | NURSING ---
2229 This RN assisting patient to use urinal. Patient's eyes rolled back in head and patient started having a full-body seizure. Patient gurgling at mouth. RN called for charge nurse, staff responded including 2 respiratory therapists, ED nurse, ICU nurse, charge nurse, hospitalist (Dr. Garcia). 2244 blood glucose 150. Vitals charted. Dr. Arroyo ordered Ativan 1 mg IV given at 2250, noted on DEC. Dr. Arroyo ordered tele. Dr. Arroyo said patient will stay on MedSurg.
[2020-01-05] MEDS: LORazepam 1 MG Tablet 2 MG PO (23:11)
[2020-01-05] MEDS: QUEtiapine 100 MG Tablet 400 MG PO (23:15)
[2020-01-06] VITALS (9 sets, daily range): BP systolic 137–184; BP diastolic 92–112; PULSE 74–117; RESP 18–20; TEMP 36.6–37.2; O2SAT 96–99
[2020-01-06] MEDS: MELATONIN 10 MG TABLET PO (00:11)
[2020-01-06] MEDS: Atorvastatin Calcium 40 MG Tablet PO (00:11)
[2020-01-06] MEDS: 0.9% Saline Lock 10 ML Syringe IV ×3 (00:12→04:31)
[2020-01-06 01:26] LABS: Bedside Glucose 150 mg/dL (70-110)
[2020-01-06] MEDS: LORazepam 1 MG Tablet 2 MG PO ×2 (04:29→10:51)
--- NOTE | 2020-01-06 05:23 | PCM.PN.BLA ---
Progress Note Notified of blood pressure 184/112. Because of possible adrenergic symptoms from alcohol withdrawal will put on clonidine patch and clonidine p.o. as needed. STROKE Vital Signs/Narrative: Vital Signs Temp Pulse Resp BP Pulse Ox 01/06/20 04:10 97.9 F 90 20 H 184/112 H 99 01/06/20 03:41 74 18 97 01/06/20 03:24 90
[2020-01-06] MEDS: cloNIDine HCl 0.1 MG Patch TRANSDERM. (05:40)
[2020-01-06 06:33] LABS: Absolute Lymphocyte Count 1.21 X10^3/uL (0.83-4.51); Absolute Neutrophil Count 3.6 X10^3/uL (2.0-7.7); Basophil# 0.04 X10^3/uL; Basophil% 0.7 % (0-1); Eosinophil# 0.15 X10^3/uL; Eosinophils% 2.7 % (0-5); Hematocrit 35.7 % (40-54); Hemoglobin 12.3 g/dL (13.0-16.5); Lymphocyte # 1.21 X10^3/ul (4.0); Lymphocyte % 21.5 % (19-41); Mean Corp Hgb Conc 34.5 g/dL (32-36); Mean Corpuscular Hgb 33.5 pg (27.0-32.0); Mean Corpuscular Volume 97.3 fL (80-94); Mean Platelet Vol. 8.7 fl (6.2-12.0); Monocyte# 0.63 X10^3/uL; Monocyte% 11.2 % (0-10); NRBC Flagged by Analyzer 0 % (0-5); Neutrophil # 3.59 X10^3/uL (2.7-7.7); Neutrophil % 63.5 % (47-70); Platelet Count 149 K/mm3 (150-450); RBC Distribution Width CV 13.8 % (11.6-14.6); RBC Distribution Width SD 49.2 fl (35.1-43.9); Red Blood Count 3.67 M/mm3 (4.6-6.2); White Blood Count 5.6 K/mm3 (4.4-11.0)
[2020-01-06 06:55] LABS: Anion Gap 8 (5-15); BUN 4 mg/dL (7-18); Calcium,Total 8.5 mg/dL (8.5-10.1); Chloride 101 mmol/L (98-107); Creatinine, Serum 0.44 mg/dL (0.70-1.30); EST Glomerular Filtration Rate 206 mL/min (>60); Est Glom Filt Rate - Afr Amer 250 mL/min (>60); Estimated Creatinine Clearance 187.77 ml/min; Glucose 87 mg/dL (74-106); Potassium 3.1 mmol/L (3.5-5.1); Sodium Level 134 mmol/L (136-145)
[2020-01-06] MEDS: Folic Acid 1 MG Tablet PO (08:34)
[2020-01-06] MEDS: Thiamine Hydrochloride 100 MG Tablet PO (08:34)
[2020-01-06] MEDS: Naproxen 500 MG Tablet PO (08:34)
[2020-01-06] MEDS: Multivitamins,Ther W-Minerals Tablet 1 TABLET PO (08:34)
--- NOTE | 2020-01-06 10:03 | PCM.PN.HOSP ---
Patient Problems: Active and Suspected Problems (Last Updated 01/05/20 @ 19:[address] Chapin Simpson, DO) SIRS (systemic inflammatory response syndrome) (Acute) Lactic acidosis (Acute) Vitals/I&O's: Vital Signs Temp Pulse Resp BP Pulse Ox 98.5 F 85 18 160/100 H 96 01/06/20 08:27 01/06/20 08:27 01/06/20 08:27 01/06/20 08:27 01/06/20 08:27 Oxygen Flow Rate (L/min) 2 Oxygen Delivery Method Room Air Weight: 86.046 kg Body Mass Index (BMI) 26.4 Intake and Output for Last 24 Hours 01/04/20 01/05/20 01/06/20 23:59 23:59 23:59 Intake Total 1000 / 1100 1400 / 1400 Balance 1000 / 1100 1400 / 1400 Microbiology Past 72 Hours 01/05/20 20:08 Mucosa - Nasopharyngeal Rapid RSV (DFA) - Final 01/05/20 20:08 Mucosa - Nasopharyngeal Influenza Types A,B Direct FA (JEFFY) - Final Laboratory Results 01/05/20 15:30: WBC 6.0, RBC 3.81 L, Hgb 12.5 L, Hct 36.8 L, MCV 96.6 H, MCH 32.8 H, MCHC 34.0, RDW Std Deviation 49.1 H, RDW Coeff of William 13.8, Plt Count 177, MPV 8.4, Immature Gran % (Auto) 0.300, Neut % (Auto) 72.7 H, Lymph % (Auto) 14.8 L, [place] % (Auto) 9.3, Eos % (Auto) 2.2, Baso % (Auto) 0.7, Absolute Neuts (auto) 4.4, Absolute Lymphs (auto) 0.89, Nucleated RBC % 0 01/05/20 15:30: PT 14.0, INR 1.1, APTT 34.9 01/05/20 15:30: Sodium 130 L, Potassium 3.4 L, Chloride 98, Carbon Dioxide 22.0, Anion Gap 10, BUN 4 L, Creatinine 0.64 L, Estim Creat Clear Calc 129.10, Est GFR (MDRD) Af Amer 163, Est GFR (MDRD) Non-Af 135, BUN/Creatinine Ratio 6.2 L, Glucose 182 H, Calcium 8.7, Total Bilirubin 0.60, AST 77 H, ALT 45, Alkaline Phosphatase 127 H, Total Protein 8.5 H, Albumin 3.4, Globulin 5.1 H, Albumin/Globulin Ratio 0.7 L 01/05/20 15:30: Lactic Acid 3.6 H* 01/05/20 17:20: Urine Color Straw, Urine Clarity Clear, Urine pH 7.0, Ur Specific [place] 1.010, Urine Protein Negative, Urine Glucose (UA) Normal, Urine Ketones Negative, Urine Occult Blood Negative, Urine Nitrite Negative, Urine Bilirubin Negative, Urine Urobilinogen Normal, Ur Leukocyte Esterase 25 H, Urine RBC 0-5 SEEN, Urine WBC 0-5 SEEN, Ur Squamous Epith Cells 0-5 SEEN, Ur Transition Epith Cell 0-5 SEEN, Urine Bacteria 0 SEEN, Hyaline Casts 0-5 SEEN, Urine Mucus 0 SEEN 01/05/20 20:16: Lactic Acid 0.8 01/05/20 22:47: POC Glucose 150 H 01/06/20 05:58: WBC 5.6, RBC 3.67 L, Hgb 12.3 L, Hct 35.7 L, MCV 97.3 H, MCH 33.5 H, MCHC 34.5, RDW Std Deviation 49.2 H, RDW Coeff of William 13.8, Plt Count 149 L, MPV 8.7, Immature Gran % (Auto) 0.400, Neut % (Auto) 63.5, Lymph % (Auto) 21.5, [place] % (Auto) 11.2 H, Eos % (Auto) 2.7, Baso % (Auto) 0.7, Absolute Neuts (auto) 3.6, Absolute Lymphs (auto) 1.21, Nucleated RBC % 0 01/06/20 05:58: Sodium 134 L, Potassium 3.1 L, Chloride 101, Carbon Dioxide 25.0, Anion Gap 8, BUN 4 L, Creatinine 0.44 L, Estim Creat Clear Calc 187.77, Est GFR (MDRD) Af Amer 250, Est GFR (MDRD) Non-Af 206, BUN/Creatinine Ratio 9.0 L, Glucose 87, Calcium 8.5 Current Medications Acetaminophen (Tylenol) 650 mg PO Q6H PRN PRN PRN Reason: Pain Score 1-10/Temp > 100.7 F Albuterol Sulfate (Ventolin Aerosols) 2.5 mg INHALATION Q2H PRN PRN Reason: SHORTNESS OF BREATH Atorvastatin Calcium (Lipitor) 40 mg PO QHS [facility] Last Admin: 01/06/20 00:11 Dose: 40 mg Documented by: Clonidine (Catapres) 0.1 mg PO Q6H PRN PRN PRN Reason: SBP > 160 Clonidine HCl (Catapres-Tts1) 0.1 mg TRANSDERM. Q7D [facility] Last Admin: 01/06/20 05:40 Dose: 0.1 mg Documented by: Fluoxetine HCl (Prozac) 60 mg PO DAILY [facility] Folic Acid (Folic Acid) 1 mg PO DAILY@0800 [facility] Stop: 01/08/20 08:01 Last Admin: 01/06/20 08:34 Dose: 1 mg Documented by: Glucagon () 1 mg IM .X1 PRN PRN Reason: Hypoglycemia Dextrose (Dextrose 10%-Water) 250 mls @ 999 mls/hr IV .Q16M PRN; Protocol PRN Reason: HYPOGLYCEMIA Ibuprofen (Motrin) 400 mg PO Q4H PRN PRN PRN Reason: Pain Score 1-10/Temp > 100.7 F Last Admin: 01/05/20 20:58 Dose: 400 mg Documented by: Lorazepam (Ativan) 2 mg PO Q2H PRN PRN; Protocol PRN Reason: CIWA score > 8 but <15 Lorazepam (Ativan) 2 mg PO UD PRN; Protocol PRN Reason: CIWA score >/=15. Last Admin: 01/05/20 23:11 Dose: 2 mg Documented by: Lorazepam (Ativan) 2 mg IV Q2H PRN PRN; Protocol PRN Reason: CIWA score > 8 but <15 Lorazepam (Ativan) 2 mg IV UD PRN; Protocol PRN Reason: CIWA score >/=15. Lorazepam (Ativan) 1 mg PO Q24H PRN PRN Reason: Agitation Lorazepam (Ativan) 2 mg PO Q6H [facility]; Taper Stop: 01/11/20 23:14 Last Admin: 01/06/20 04:29 Dose: 2 mg Documented by: Meclizine HCl (Antivert) 12.5 mg PO 4X/DAY PRN PRN PRN Reason: DIZZINESS Melatonin (Melatonin) 10 mg PO QHS [facility] Last Admin: 01/06/20 00:11 Dose: 10 mg Documented by: Multivitamins/Minerals (Multivitamin With Minerals (Bkc)) [facility] Last Admin: 01/06/20 08:34 Dose: 1 tablet Documented by: Naproxen (Naprosyn) [facility] Last Admin: 01/06/20 08:34 Dose: 500 mg Documented by: Nutritional Formula (Lactose Free) (Ensure Enlive) 120 ml PO 4X/DAY [facility] Last Admin: 01/06/20 00:11 Dose: 120 ml Documented by: Ondansetron HCl (Zofran) 4 mg IV Q8H PRN PRN PRN Reason: NAUSEA/VOMITING Potassium Chloride (K-Dur) 60 meq PO X1 ONE Stop: 01/06/20 10:03 Potassium Chloride (K-Dur) [facility] Quetiapine Fumarate (Seroquel) 400 mg PO BID [facility] Last Admin: 01/05/20 23:15 Dose: 400 mg Documented by: Sodium Chloride () 10 - 40 ml IV UD PRN PRN Reason: SALINE FLUSH Last Admin: 01/06/20 04:31 Dose: 10 ml Documented by: Thiamine HCl (Vitamin B1) [facility] Stop: 01/08/20 17:01 Last Admin: 01/06/20 08:34 Dose: 100 mg Documented by: STROKE Vital Signs/Narrative: Vital Signs Temp Pulse Resp BP Pulse Ox 01/06/20 08:27 98.5 F 85 18 160/100 H 96 Medical Necessity - Tobacco Use Smoking Status: Current every day smoker Tobacco Use: Cigarettes, Pipe Assessment/Plan All Active Problems (Last Updated 01/05/20 @ 19:[address] Chapin Simpson, DO) Angioedema of lips (Acute) Hyperlipidemia (Acute) SIRS (systemic inflammatory response syndrome) (Acute) Lactic acidosis (Acute)
[2020-01-06] MEDS: FLUoxetine 20 MG Capsule 60 MG PO (10:51)
--- NOTE | 2020-01-06 10:51 | PCM.DC ---
- Discharge Diagnoses Current Active Problems: Current Active and Chronic Problems (Last Updated 01/05/20 @ 19:[address] Chapin Simpson, DO) SIRS (systemic inflammatory response syndrome) (Acute) Lactic acidosis (Acute) Reason(s) for Visit for Discharge Instructions: Dizziness You will use the following diet at home:: Cardiac Your food should be the consistency of: Regular Your liquids should be the consistency of: Regular/Thin Discharge Activity: Return to Normal Activity Additional Instructions: You are strongly advised to quit smoking and drinking alcohol. Continue to keep yourself hydrated. Take note of your new medication for blood pressure. Follow-up with your primary care doctor within 1-2 weeks. Allergies/Adverse Reactions: Allergies lisinopril Allergy (Verified 01/05/20 15:09) Angioedema peanut Allergy (Verified 01/05/20 15:09) Hives Medications to take at Discharge Fluoxetine [Prozac] 60 mg PO DAILY 08/06/15 Acamprosate Calcium 666 mg PO TID 01/05/20 Atorvastatin Calcium [Lipitor] 40 mg PO QHS 01/05/20 Cholecalciferol (Vitamin D3) [D3-50] 50,000 unit PO MO 01/05/20 Melatonin 10 mg PO QHS 01/05/20 Naproxen 500 mg PO BID 01/05/20 Quetiapine Fumarate [Quetiapine Fumarate ER] 800 mg PO QHS 01/05/20 Acetaminophen [Tylenol Tablet] 650 mg PO Q6H PRN PRN tablet 01/06/20 Ensure Enlive 120 ml PO 4X/DAY 30 Days #120 liquid 01/06/20 Folic Acid 1 mg PO DAILY@0800 30 Days #30 tab 01/06/20 Metoprolol(XL)Succ [Toprol Xl (Beta Iftikhar)] 50 mg PO DAILY 30 Days #30 tab 01/06/20 Thiamine Hydrochloride [Vitamin B1] 100 mg PO BIDCM 30 Days #30 tab 01/06/20 The following prescriptions were given: Ensure Enlive 120 ml PO 4X/DAY 30 Days #120 liquid Transmission Status: Pending to [facility] [id number] Folic Acid 1 mg PO DAILY@0800 30 Days #30 tab Transmission Status: Pending to [facility] [id number] Metoprolol(XL)Succ [Toprol Xl (Beta Iftikhar)] 50 mg PO DAILY 30 Days #30 tab Transmission Status: Pending to [facility] - [id number] Thiamine Hydrochloride [Vitamin B1] 100 mg PO BIDCM 30 Days #30 tab Transmission Status: Pending to [facility] [id number] Primary Care Physician: Thania Herrmann MD [Primary Care Provider] - Please follow up with your Primary Care Physician in: within 1-2 weeks Test Results: Test results from this visit will be discussed in further detail at your follow-up appointment, if applicable. Proposed Discharge Date: 01/06/20
--- NOTE | 2020-01-06 10:57 | DS.PCM_ITS ---
Discharge Date and Diagnosis Date of Admission: 01/05/20 Date of Discharge: 01/06/20 - Primary Discharge Diagnosis Active and Suspected Problems (Last Updated 01/05/20 @ 19:[address] Chapin Simpson DO) SIRS (systemic inflammatory response syndrome) (Acute) Lactic acidosis (Acute) Vertigo Orthostatic hypotension - Secondary Discharge Diagnosis Chronic Problems (Last Updated 01/05/20 @ 19:[address] Chapin Simpson DO) Hypertension (Chronic) Hospital Course and Treatment Imaging Results: Clinical Impression(s) from Imaging Studies Chest X-Ray 01/05/20 16:10 IMPRESSION: Normal x-ray examination of the chest. Electronically Signed: Raad Murcia DO at 16:26 EDT Tel , Service support , None Operations: None Procedures: None Summary of Care Provided: The patient is a 59 year old M with past medical history of alcohol use disorde r, seizure disorder who comes in complaining of feeling weak and dizzy as well as cough. Patient underwent work-up in the ED. chest x-ray was negative for acute infiltrates. His lactic acid however was elevated at 3.6. No source of infection was found. Patient was admitted to the [facility] floor, started on IV fluids. Rapid response was called and the patient who reportedly had a seizure disorder. He received 1 mg of Ativan. His acamprosate was held on admission and this could possibly have been the cause of his seizures. He was started on Ativan and his Seroquel was resumed. Patient was seen the next morning, feeling much better. He was able to ambulate. His orthostatic vitals were positive. He was prescribed IV fluids but he was eager to be discharged. He was reportedly dressed up and IVF could not be prescribed. He cited that he needed a ride by 12:00 as well as he has a dog that needed to be attended to as well as a physical therapy appointment. He was counseled to strongly stop drinking alcohol and stop smoking. Blood pressures were uncontrolled, he was started on metoprolol prior to discharge. Subjective: On the day of discharge, patient was seen and examined. He felt improved. Denied any complains. Objective: Physical exam: General: Alert, Cooperative, No apparent distress HEENT: Atraumatic, PERRLA - Bilateral nystagmusm worse on the right, normocephalic Oral: Moist Mucosa, No Gingival or Mucosal Lesions/ Ulcerations Neck: No Nodes, Trachea Midline Lungs: Clear to auscultation, Normal air movement, No rhonchi, No wheeze, No rales Cardiovascular: Regular rate, Regular Rhythm, Normal S1, Normal S2, No murmurs Abdomen: Bowel Sounds Present, Soft, Non Tender, Non-Distended, No Hepato- splenomegaly Extremities: No edema, No Calf Tenderness Skin: No rashes, No breakdown Musculoskeletal: No Tenderness to Palpation of Joints or Extremities, No Muscle Wasting Neurological: CN II-XII intact, normal tone, tremors noted in hands Psych/Mental Status: Normal Affect, appeared anxious - Physical Exam Vitals/I&O's: Vital Signs Temp Pulse Resp BP Pulse Ox 98.5 F 103 H 18 160/100 H 96 01/06/20 08:27 01/06/20 10:00 01/06/20 08:27 01/06/20 08:27 01/06/20 08:40 Oxygen Flow Rate (L/min) 2 Oxygen Delivery Method Room Air Weight: 86.046 kg Body Mass Index (BMI) 26.4 Intake and Output for Last 24 Hours 01/04/20 01/05/20 01/06/20 23:59 23:59 23:59 Intake Total 1000 / 1100 1400 / 1400 Balance 1000 / 1100 1400 / 1400 Microbiology Past 72 Hours 01/05/20 20:08 Mucosa - Nasopharyngeal Rapid RSV (DFA) - Final 01/05/20 20:08 Mucosa - Nasopharyngeal Influenza Types A,B Direct FA (JEFFY) - Final Laboratory Results 01/05/20 15:30: WBC 6.0, RBC 3.81 L, Hgb 12.5 L, Hct 36.8 L, MCV 96.6 H, MCH 32.8 H, MCHC 34.0, RDW Std Deviation 49.1 H, RDW Coeff of William 13.8, Plt Count 177, MPV 8.4, Immature Gran % (Auto) 0.300, Neut % (Auto) 72.7 H, Lymph % (Auto) 14.8 L, Walker % (Auto) 9.3, Eos % (Auto) 2.2, Baso % (Auto) 0.7, Absolute Neuts (auto) 4.4, Absolute Lymphs (auto) 0.89, Nucleated RBC % 0 01/05/20 15:30: PT 14.0, INR 1.1, APTT 34.9 01/05/20 15:30: Sodium 130 L, Potassium 3.4 L, Chloride 98, Carbon Dioxide 22.0, Anion Gap 10, BUN 4 L, Creatinine 0.64 L, Estim Creat Clear Calc 129.10, Est GFR (MDRD) Af Amer 163, Est GFR (MDRD) Non-Af 135, BUN/Creatinine Ratio 6.2 L, Glucose 182 H, Calcium 8.7, Total Bilirubin 0.60, AST 77 H, ALT 45, Alkaline Phosphatase 127 H, Total Protein 8.5 H, Albumin 3.4, Globulin 5.1 H, Albumin/Globulin Ratio 0.7 L 01/05/20 15:30: Lactic Acid 3.6 H* 01/05/20 17:20: Urine Color Straw, Urine Clarity Clear, Urine pH 7.0, Ur Specific Mitchell 1.010, Urine Protein Negative, Urine Glucose (UA) Normal, Urine Ketones Negative, Urine Occult Blood Negative, Urine Nitrite Negative, Urine Bilirubin Negative, Urine Urobilinogen Normal, Ur Leukocyte Esterase 25 H, Urine RBC 0-5 SEEN, Urine WBC 0-5 SEEN, Ur Squamous Epith Cells 0-5 SEEN, Ur Transition Epith Cell 0-5 SEEN, Urine Bacteria 0 SEEN, Hyaline Casts 0-5 SEEN, Urine Mucus 0 SEEN 01/05/20 20:16: Lactic Acid 0.8 01/05/20 22:47: POC Glucose 150 H 01/06/20 05:58: WBC 5.6, RBC 3.67 L, Hgb 12.3 L, Hct 35.7 L, MCV 97.3 H, MCH 33.5 H, MCHC 34.5, RDW Std Deviation 49.2 H, RDW Coeff of William 13.8, Plt Count 149 L, MPV 8.7, Immature Gran % (Auto) 0.400, Neut % (Auto) 63.5, Lymph % (Auto) 21.5, Walker % (Auto) 11.2 H, Eos % (Auto) 2.7, Baso % (Auto) 0.7, Absolute Neuts (auto) 3.6, Absolute Lymphs (auto) 1.21, Nucleated RBC % 0 01/06/20 05:58: Sodium 134 L, Potassium 3.1 L, Chloride 101, Carbon Dioxide 25.0, Anion Gap 8, BUN 4 L, Creatinine 0.44 L, Estim Creat Clear Calc 187.77, Est GFR (MDRD) Af Amer 250, Est GFR (MDRD) Non-Af 206, BUN/Creatinine Ratio 9.0 L, Glucose 87, Calcium 8.5 Current Medications Acetaminophen (Tylenol) 650 mg PO Q6H PRN PRN PRN Reason: Pain Score 1-10/Temp > 100.7 F Albuterol Sulfate (Ventolin Aerosols) 2.5 mg INHALATION Q2H PRN PRN Reason: SHORTNESS OF BREATH Atorvastatin Calcium (Lipitor) 40 mg PO QHS [facility] Last Admin: 01/06/20 00:11 Dose: 40 mg Documented by: Fluoxetine HCl (Prozac) 60 mg PO DAILY [facility] Last Admin: 01/06/20 10:51 Dose: 60 mg Documented by: Folic Acid (Folic Acid) 1 mg PO DAILY@0800 [facility] Stop: 01/08/20 08:01 Last Admin: 01/06/20 08:34 Dose: 1 mg Documented by: Glucagon () 1 mg IM .X1 PRN PRN Reason: Hypoglycemia Dextrose (Dextrose 10%-Water) 250 mls @ 999 mls/hr IV .Q16M PRN; Protocol PRN Reason: HYPOGLYCEMIA Ibuprofen (Motrin) 400 mg PO Q4H PRN PRN PRN Reason: Pain Score 1-10/Temp > 100.7 F Last Admin: 01/05/20 20:58 Dose: 400 mg Documented by: Lorazepam (Ativan) 2 mg PO Q2H PRN PRN; Protocol PRN Reason: CIWA score > 8 but <15 Lorazepam (Ativan) 2 mg PO UD PRN; Protocol PRN Reason: CIWA score >/=15. Last Admin: 01/05/20 23:11 Dose: 2 mg Documented by: Lorazepam (Ativan) 2 mg IV Q2H PRN PRN; Protocol PRN Reason: CIWA score > 8 but <15 Lorazepam (Ativan) 2 mg IV UD PRN; Protocol PRN Reason: CIWA score >/=15. Lorazepam (Ativan) 1 mg PO Q24H PRN PRN Reason: Agitation Lorazepam (Ativan) 2 mg PO Q6H [facility]; Taper Stop: 01/11/20 23:14 Last Admin: 01/06/20 10:51 Dose: 2 mg Documented by: Meclizine HCl (Antivert) 12.5 mg PO 4X/DAY PRN PRN PRN Reason: DIZZINESS [facility] Last Admin: 01/06/20 00:11 Dose: 10 mg Documented by: Metoprolol Succinate (Toprol Xl (Beta Iftikhar)) 50 mg PO DAILY [facility] Multivitamins/Minerals (Multivitamin With Minerals (Bkc)) [facility] Last Admin: 01/06/20 08:34 Dose: 1 tablet Documented by: [facility]roxen [facility]rosyn) [facility] Last Admin: 01/06/20 08:34 Dose: 500 mg Documented by: Nutritional Formula (Lactose Free) (Ensure Enlive) 120 ml PO 4X/DAY [facility] Last Admin: 01/06/20 10:51 Dose: 120 ml Documented by: Ondansetron HCl (Zofran) 4 mg IV Q8H PRN PRN PRN Reason: NAUSEA/VOMITING Potassium Chloride (K-Dur) [facility] Quetiapine Fumarate (Seroquel) 400 mg PO BID [facility] Last Admin: 01/05/20 23:15 Dose: 400 mg Documented by: Sodium Chloride () 10 - 40 ml IV UD PRN PRN Reason: SALINE FLUSH Last Admin: 01/06/20 04:31 Dose: 10 ml Documented by: Thiamine HCl (Vitamin B1) [facility] Stop: 01/08/20 17:01 Last Admin: 01/06/20 08:34 Dose: 100 mg Documented by: Discharge Diet: Low fat/ Low Cholesterol, 2000 mg Sodium Diet Discharge Activity: Return to Normal Activity Home Medications: Medications to take at Discharge Fluoxetine [Prozac] 60 mg PO DAILY 08/06/15 Acamprosate Calcium 666 mg PO TID 01/05/20 Atorvastatin Calcium [Lipitor] 40 mg PO QHS 01/05/20 Cholecalciferol (Vitamin D3) [D3-50] 50,000 unit PO MO 01/05/20 Melatonin 10 mg PO QHS 03/19/20 Naproxen 500 mg PO BID 01/05/20 Quetiapine Fumarate [Quetiapine Fumarate ER] 800 mg PO QHS 01/05/20 Acetaminophen [Tylenol Tablet] 650 mg PO Q6H PRN PRN tab 01/06/20 Ensure Enlive 120 ml PO 4X/DAY 30 Days #120 liquid 01/06/20 Folic Acid 1 mg PO DAILY@0800 30 Days #30 tab 01/06/20 Metoprolol(XL)Succ [Toprol Xl (Beta Iftikhar)] 50 mg PO DAILY 30 Days #30 tab 01/06/20 Thiamine Hydrochloride [Vitamin B1] 100 mg PO BIDCM 30 Days #30 tab 01/06/20 Following Prescrptions Were Given to Patient: Ensure Enlive 120 ml PO 4X/DAY 30 Days #120 liquid Transmission Status: Received by [place] [id number] Folic Acid 1 mg PO DAILY@0800 30 Days #30 tab Transmission Status: Received by [place] [id number] Metoprolol(XL)Succ [Toprol Xl (Beta Iftikhar)] 50 mg PO DAILY 30 Days #30 tab Transmission Status: Received by [place] [id number] Thiamine Hydrochloride [Vitamin B1] 100 mg PO BIDCM 30 Days #30 tab Transmission Status: Received by [place] [id number] Primary Care Physician: Thania Herrmann MD [Primary Care Provider] - Please follow up with your Primary Care Physician in: within 1-2 weeks Disposition: Home Minutes spent on discharge:: 25 Patient Condition:: Stable Medical Necessity - Tobacco Use Smoking Status: Current every day smoker Tobacco Use: Cigarettes, Pipe Meaningful Use Info Meaningful Use Diagnoses (Choose all that apply): None applicable Inpatient E&M: 63130 Disch Hosp
--- NOTE | 2020-01-06 11:10 | CASEMGMT ---
Addendum entered by Dee Lundberg 01/06/20 11:13: SW reviewed pt's chart. Pt does have history of ETOH abuse. SW updated that pt doesn't want detox, will not stay for detox, doesn't want resources. Pt is in isolation at this time, SW didn't go in to pt's room at this time. Pt will be discharged home today. Original Note: Social Work Note RN stating pt is asking about hospital van transport home today, states pt will be ready around 3:00pm. WILD called [facility] and spoke to [facility], arranged transport for 2:45pm. WILD updated RN who will update pt. Dee Lundberg DRIVE IN WAITER/WAITRESS, ASSISTANT ACCOUNT EXECUTIVE
== END 2020-01-06 13:20 | disposition home or self-care (01) ==
LOC: ED 15:34 → MS3 19:17
PROVIDERS: Emergency Provider Emergency Medicine; PCP Psychiatry & Neurology Psychiatry; Visit Provider Internal Medicine
DX: I95.1 Orthostatic hypotension (principal); R65.10 Systemic inflammatory response syndrome (SIRS) of non-infectious origin without acute organ dysfunction; E87.2 Acidosis; F10.239 Alcohol dependence with withdrawal, unspecified; I10 Essential (primary) hypertension; F41.9 Anxiety disorder, unspecified; F31.9 Bipolar disorder, unspecified; Z79.899 Other long term (current) drug therapy; F17.290 Nicotine dependence, other tobacco product, uncomplicated; E78.5 Hyperlipidemia, unspecified; H55.00 Unspecified nystagmus; R94.31 Abnormal electrocardiogram [ECG] [EKG]; R00.0 Tachycardia, unspecified; R06.82 Tachypnea, not elsewhere classified; D64.9 Anemia, unspecified; I48.91 Unspecified atrial fibrillation
CPT/HCPCS: 36415; 71046; 80048; 80053; 81001; 82962; 83605; 85025; 85610; 85730; 87040; 87086; 87804; 87807; 93005; 96361; 96374; 97162; 99218; 99251; 99285; J7030; A4216; G0378; G0463

== ENCOUNTER 2020-03-26 12:03 | Observation (INO) | payer MEDICARE, MEDICAID, SELFPAY ==
[2020-01-05 20:17] VITALS: BMI 26.4
[2020-03-26] VITALS (10 sets, daily range): BP systolic 141–169; BP diastolic 78–102; PULSE 99–116; RESP 16–20; TEMP 36.7–37.3; O2SAT 94–98; BMI 26.8; BMI 26.2
--- NOTE | 2020-03-26 12:41 | CT_ITS ---
STUDY: CT BRAIN WITHOUT CONTRAST REASON FOR EXAM: Male, 59 years old. SEIZURE TODAY RADIATION DOSAGE (If Supplied By Facility): CTDIvol = ( 44.99 ) mGy, DLP = ( 812.98 ) mGycm TECHNIQUE: Transaxial CT imaging of the brain was performed without administration of intravenous contrast material. Individualized dose optimization techniques were used for this CT. COMPARISON: Comparison is made with prior examination dated April 30, 2019. FINDINGS: Normal soft tissue structures. Normal calvarium. There is mild cerebral atrophy with widening of the extra-axial spaces and ventricular dilatation. Normal white matter tracts of the cerebral hemispheres. Normal basal ganglia and thalami. Normal brainstem. There is mild cerebellar atrophy. There is no intracranial hemorrhage. There are no findings of an acute ischemic infarction. Normal visualized paranasal sinuses. CT/Brain/Head without Contrast IMPRESSION: Chronic involutional changes of the brain. Electronically Signed: Emmanuel Craig, at 13:28 EDT , Service support ,
[2020-03-26] MEDS: 0.9% Normal Saline 1,000 ML 1000 ML IV (12:58)
--- NOTE | 2020-03-26 13:09 | ED.DCSUM_ITS ---
- ER Visit Summary Date of Service: 03/26/20 Chief Complaint: Seizure History of Present Illness: The patient is a 59 M who presents with a seizure that occurred today. Patient states he has had a history of seizures in the past. Patient does not take any medications for his seizures. EMS reported that the patient had a 30 second generalized tonic-clonic seizure. Patient was postictal on their arrival. Patient is more awake and alert at this time. Patient admits to some chronic back pain. Patient admits to drinking 3 beers per day. Patient denies any other medical history. Patient denies any other symptoms. Physical Examination: Vital signs are stable. Patient is afebrile. Patient is in no acute distress. Oral mucosa is pink and moist. Neck is supple. Trachea is midline. There is no JVD. Heart was regular rate and rhythm. Lungs are clear and equal bilaterally. Abdomen is soft. Bowel sounds are normal. There is no tenderness. There is no rebound or guarding noted. Extremities are intact. There is no calf tenderness or edema. Cranial nerves II through XII are intact. There are no focal motor or sensory deficits. Test Results: CBC was essentially within normal limits. Comprehensive metabolic profile showed a mild hyponatremia of 133. Alk phos was slightly elevated at 149, AST was 88. Lipase was normal. PT with INR and PTT were all within normal limits. Troponin was less than 0.015. Lactate was normal at 1.6. CT scan of the brain was obtained. There are chronic changes but no acute cranial abnormality. This was interpreted by the radiologist and reviewed by myself. Caregiver states that the patient is not quite acting his normal self. Because of this, an ammonia level was obtained. This was normal at 21. Urinalysis was obtained. There is leukocyte esterase of 500 with 50-100 white blood cells and 10-25 red blood cells. There is 2+ bacteria. Blood cultures and urine cultures were obtained. Emergency Department Course and Treatment: Patient was started on Rocephin here in the emergency department. Patient states he wants to go home and does not want to be admitted to the hospital. Caregiver states that the patient has been having difficulty ambulating because of weakness in his legs. We will attempt to ambulate the patient. If the patient is able to ambulate, he will be discharged home. If he is unable to ambulate he will be admitted. Before the patient was attempted to ambulate, patient had a seizure here in the emergency department. It was a generalized tonic-clonic seizure. He was incontinent of urine. Currently, he is postictal. Patient was given a dose of Ativan. Patient was loaded with 1 g of Keppra IV. Case was discussed with his case management specialist who is here in the emergency department. She is agreeable to having the patient admitted. On reexamination, patient was noted to have a 2 cm laceration over the posterior aspect of his left elbow. The wound was cleaned and closed with 2 simple interrupted #4-0 nylon sutures. Patient was postictal during the procedure. Bacitracin dressing was applied. Case was discussed with the hospitalist. She will admit the patient to her service. Disposition: Admit to hospital Impression: 1. Urinary tract infection 2. Seizure disorder 3. Left elbow laceration This note was generated with [employer] dictation software. It may contain incorrect words, spelling, and punctuation that were not noted in review of the chart prior to signing ED Disposition - Plan for ED Patient: Disposition: Acute Care Hospital [facility] Diagnosis: Seizure, Urinary tract infection, Laceration of left elbow
[2020-03-26 13:13] LABS: International Normalized Ratio 1.1
[2020-03-26 13:14] LABS: Partial Thromboplast Time 34.5 Seconds (24.1-36.2)
[2020-03-26 13:25] LABS: ALB/GLOB Ratio 0.7 RATIO (0.9-2.4); AST(SGOT) 88 U/L (15-37); Alanine Aminotransfer ALT/SGPT 47 U/L (16-61); Albumin, Serum 3.1 g/dL (3.2-5.0); Alkaline Phosphatase 149 U/L (45-117); Anion Gap 7 (5-15); BUN 7 mg/dL (7-18); BUN/Creat Ratio 9.7 RATIO (10-20); Calcium,Total 8.6 mg/dL (8.5-10.1); Chloride 100 mmol/L (98-107); Creatinine, Serum 0.72 mg/dL (0.70-1.30); EST Glomerular Filtration Rate 118 mL/min (>60); Est Glom Filt Rate - Afr Amer 142 mL/min (>60); Estimated Creatinine Clearance 114.75 ml/min; Globulin 4.6 g/dL (2.2-4.2); Glucose 127 mg/dL (74-106); Lactic Acid 1.6 mmol/L (0.4-1.9); Lipase 42 U/L (73-393); Potassium 3.6 mmol/L (3.5-5.1); Protein, Total 7.7 g/dL (6.4-8.2); Sodium Level 133 mmol/L (136-145)
[2020-03-26 13:32] LABS: Absolute Neutrophil Count 5.9 X10^3/uL (2.0-7.7); Basophil# 0.03 X10^3/uL; Basophil% 0.4 % (0-1); Eosinophil# 0.01 X10^3/uL; Eosinophils% 0.1 % (0-5); Hematocrit 33.6 % (40-54); Hemoglobin 11.3 g/dL (13.0-16.5); Lymphocyte % 10.8 % (19-41); Mean Corp Hgb Conc 33.6 g/dL (32-36); Mean Corpuscular Hgb 33.6 pg (27.0-32.0); Mean Platelet Vol. 9.7 fl (6.2-12.0); Monocyte# 0.61 X10^3/uL; Monocyte% 8.2 % (0-10); NRBC Flagged by Analyzer 0 % (0-5); Neutrophil # 5.92 X10^3/uL (2.7-7.7); Neutrophil % 80.1 % (47-70); Platelet Count 123 K/mm3 (150-450); RBC Distribution Width CV 14.3 % (11.6-14.6); RBC Distribution Width SD 51.8 fl (35.1-43.9); Red Blood Count 3.36 M/mm3 (4.6-6.2); White Blood Count 7.4 K/mm3 (4.4-11.0)
[2020-03-26 13:33] LABS: Mucous, Urine 0 SEEN /hpf (<or=2+); Squamous Epithelial Cells - UA 0 SEEN /hpf (0-5)
[2020-03-26 14:21] LABS: Color, Urine Yellow (Yellow); Glucose, Dipstick Normal (Normal); Ketone-Dipstick 5 mg/dl (Negative); Leukocyte Esterase-Dipstick 500 /ul (Negative); Nitrite-Dipstick Negative (Negative); Occult Blood-Urine 150 /ul (Negative); Protein-Dipstick 100 mg/dl (Negative); Urine Bilirubin Dipstick Negative (Negative); Urine Clarity Cloudy (Clear); Urine Urobilinogen Normal (Normal)
[2020-03-26 15:17] LABS: Bacteria 2+ /hpf (None Seen); Red Blood Cells-Urine 10-25 SEEN /hpf (0-5); White Blood Cells 50-100 SEEN /hpf (0-5)
[2020-03-26] MEDS: Ceftriaxone 1 GM/50 ML BAG IV (16:54)
[2020-03-26] MEDS: LORazepam 2 MG/ML Syringe 1 MG IV (17:10)
--- NOTE | 2020-03-26 17:16 | HP.PCM_ITS ---
History of Present Illness Date of Admission: 03/26/20 Chief Complaint: Seizure The patient is a 59 year old M with a past medical history as outlined who was admitted with a seizure which occurred today. At the time I reviewed patient, patient was postictal after having another seizure in the ED and so I could not get a history from him. History was mainly gotten from discussion with ED doctor and patient's nurse. According to them, patient said he had a history of seizures in the past but was not taking any medication for his seizures and had not seen a doctor for his seizures. Patient also had a history of alcohol abuse and states he drank about 3 beers daily though the suspect that he drank way more. Last time patient drank was unknown. He had a generalized tonic-clonic seizure today and was postictal when EMS arrived to get him. On arrival in the ED he was awake and alert according to ED notes. Review of symptoms otherwise negative and no further history is available. Labs done showed sodium of 133 with ALP of 149 and AST of 88. PT and INR and PTT well within normal limits initial troponin was negative. Lactic acid was normal at 1.6. CT of the brain showed chronic involutional changes but no acute intracranial pathology. Ammonia level was 21 and UA done showed leukocyte esterase of 500 with 5200 white cell count 72+ bacteria. Patient was started on Rocephin. He however insisted on being discharged and did not want to be admitted. ED doctor was informed by caregiver that patient has been having difficulty ambulating at home because of weakness in his legs. And also patient to try to ambulate in the ED and if he could ambulate he would be discharged. However before he could be made to ambulate, patient had a seizure in the ED which was generalized tonic- clonic seizure lasting about 30 seconds with associated urinary incontinence. Decision was therefore made to admit him and he was given IV Keppra 1 g loading dose. He is being admitted to be managed for seizure [] Past Medical History Past Medical History (Chronic Problems): Chronic Problems (Last Updated 01/05/20 @ 19:[address] Chapin Simpson DO) Hypertension (Chronic) Medical History: Medical History (Last Updated 01/05/20 @ 19:[address] Chapin Simpson DO) Anxiety F41.9 Bipolar disorder F31.9 Seizure R56.9 Allergies lisinopril Allergy (Verified 03/26/20 12:08) Angioedema peanut Allergy (Verified 03/26/20 12:08) Hives Home Medications: Ambulatory Orders Medication Instructions Recorded Fluoxetine [Prozac] 60 mg PO DAILY 08/06/15 Quetiapine Fumarate [Quetiapine 800 mg PO QHS 01/05/20 Fumarate ER] Atorvastatin Calcium [Lipitor] 40 mg PO DAILY 03/26/20 Metoprolol Succinate [Toprol Xl] 50 mg PO 03/26/20 Surgical History: - - Pins and plates in left forearm Psychiatric History: Anxiety, Bipolar Lives: Alone Smoking Status: Current every day smoker Tobacco Use: Cigarettes Alcohol: Heavy Drugs: None - *Family History Maternal Family History: Family History (Last Reviewed 01/05/20 @ 19:[address] Chapin Simpson DO) Father Myocardial infarction Mother Stomach cancer Review of Systems Unable to obtain accurate/complete ROS d/t: patient was post ictal and drowsy VTE Information - Inpt Only VTE Present on Admission: No VTE Pharm Prophylaxis ordered?: Yes Patient Problems: Active and Suspected Problems (Last Updated 01/05/20 @ 19:[address] Chapin Simpson DO) Seizure (Acute) Urinary tract infection (Acute) Laceration of left elbow (Acute) - Physical Exam Vitals/I&O's: Vital Signs Temp Pulse Resp BP Pulse Ox 98.3 F 99 20 H 142/78 H 97 03/26/20 12:04 03/26/20 16:14 03/26/20 16:14 03/26/20 16:14 03/26/20 16:14 Oxygen Delivery Method Room Air Weight: 192 lb 3.889 oz Body Mass Index (BMI) 26.8 Intake and Output for Last 24 Hours 03/24/20 03/25/20 03/26/20 23:59 23:59 23:59 Intake Total 1000 / 1000 Balance 1000 / 1000 General: - - patient lethargic, post ictal, just moaning. HEENT: Atraumatic, PERRLA, EOMI, Normocephalic Oral: Dry Mucosa Neck: Supple, No JVD, Negative Carotid Bruits Lungs: Clear to auscultation, Normal air movement, No rhonchi, No wheeze Cardiovascular: Regular rate, Regular Rhythm, Normal S1, Normal S2, No murmurs Abdomen: Bowel Sounds Present, Soft, Non Tender, Non-Distended, No Hepato- splenomegaly Extremities: No clubbing, No cyanosis, No edema, Capillary Refill Less than 3 Seconds Skin: - - small laceration on left elbow, Musculoskeletal: No Tenderness to Palpation of Joints or Extremities Lymphatic: No Cervical, Supraclavicular, or Inguinal Adenopathy Neurological: - - pateint post iictal and very drowsy Laboratory Results 03/26/20 12:53: WBC 7.4, RBC 3.36 L, Hgb 11.3 L, Hct 33.6 L, MCV 100.0 H, MCH 33.6 H, MCHC 33.6, RDW Std Deviation 51.8 H, RDW Coeff of William 14.3, Plt Count 123 L, MPV 9.7, Immature Gran % (Auto) 0.400, Neut % (Auto) 80.1 H, Lymph % (Auto) 10.8 L, [place] % (Auto) 8.2, Eos % (Auto) 0.1, Baso % (Auto) 0.4, Absolute Neuts (auto) 5.9, Absolute Lymphs (auto) 0.80 L, Nucleated RBC % 0 03/26/20 12:53: PT 14.0, INR 1.1, APTT 34.5 03/26/20 12:53: Sodium 133 L, Potassium 3.6, Chloride 100, Carbon Dioxide 26.0, Anion Gap 7, BUN 7, Creatinine 0.72, Estim Creat Clear Calc 114.75, Est GFR (MDRD) Af Amer 142, Est GFR (MDRD) Non-Af 118, BUN/Creatinine Ratio 9.7 L, Glucose 127 H, Calcium 8.6, Total Bilirubin 0.70, AST 88 H, ALT 47, Alkaline Phosphatase 149 H, Troponin I < 0.015, Total Protein 7.7, Albumin 3.1 L, Globulin 4.6 H, Albumin/Globulin Ratio 0.7 L, Lipase 42 L 03/26/20 12:53: Lactic Acid 1.6 03/26/20 13:20: Urine Color Yellow, Urine Clarity Cloudy, Urine pH 7.0, Ur Specific Fraser 1.010, Urine Protein 100 H, Urine Glucose (UA) Normal, Urine Ketones 5 H, Urine Occult Blood 150 H, Urine Nitrite Negative, Urine Bilirubin Negative, Urine Urobilinogen Normal, Ur Leukocyte Esterase 500 H, Urine RBC 10- 25 SEEN, Urine WBC 50-100 SEEN, Ur Squamous Epith Cells 0 SEEN, Urine Bacteria 2+, Urine Mucus 0 SEEN 03/26/20 15:45: Ammonia 21.[address] 03/26/20 12:41 IMPRESSION: Chronic involutional changes of the brain. Electronically Signed: Emmanuel Craig, at 13:28 EDT , Service support , Current Medications Levetiracetam () 1,000 mg in 100 mls @ 400 mls/hr IV X1 ONE Stop: 03/26/20 17:24 Assessment/Plan All Active Problems (Last Updated 01/05/20 @ 19:[address] Chapin Simpson, DO) Angioedema of lips (Acute) Hyperlipidemia (Acute) SIRS (systemic inflammatory response syndrome) (Acute) Lactic acidosis (Acute) Seizure (Acute) Urinary tract infection (Acute) Laceration of left elbow (Acute) 59 y/o admitted with a complaint of seizures 1. seizures * Have a history of seizure disorder but has not seen anybody for it. * Also drinks alcohol and states he drinks about 3 beers daily according to ED. He suspects that is likely more. Last known time of having a drink unknown. * admit to PCU with telemetry * seizure and fall precautions * received IV keppra 1 gram in the ED; get neurology consult * IV ativan prn. continue with PO keppra 500mg bid, whilst awaiting neuro evaluation * 2.Sepsis due to UTI * Is tachycardic and tachypneic but this may also be due to seizures. UA positive for UTI with 2+ bacteria. * Started on IV ceftriaxone. Will continue. Get blood cultures. Also get urine cultures. * Hydrated with IV fluid normal saline. Lactic acid was only 1.6. * 3. History of alcohol abuse: * Serum alcohol level- * Will get urine toxicology. * Put on alcohol withdrawal protocol with phenobarbital as needed. * 4. Lipidemia: On statin 5. Hypertension: On metoprolol 50 mg daily. 6. Anxiety and bipolar disorder: On fluoxetine and Seroquel DVT prophylaxis: Lovenox Inpatient E&M: 44085 Init Hosp L3 Procedures: 63320 Advncd Care Plan 30 Min
[2020-03-26] MEDS: levETIRAcetam IV 1,000 MG/100 ML BAG 400 MG IV (17:37)
--- NOTE | 2020-03-26 17:39 | ED.RN ---
ATTEMPTED TO ASSIST PT TO BEDSIDE COMMODE PER PT REQUEST WITH 2 RNS. AFTER SITTING ON COMMODE PT COMPLAINED OF DIZZINESS, IMMEDIATELY ASSISTED BACK TO BED. PT OBSERVED HAVING TONIC CLONIC SEIZURE LASTING APPROX 60 SECONDS. MD CALLED TO BEDSIDE, NEW MEDS ORDERED AND GIVEN. MORTGAGE COLLECTOR LEFT, STATES SHE WILL GO CHECK ON PT'S DOG.PT HAD PREVIOUSLY TOLD THIS RN HE HAD SEVERAL PEOPLE LIVING WITH HIM THAT WOULD TAKE CARE OF DOG.
[2020-03-26 19:30] LABS: Magnesium 1.5 mg/dL (1.6-2.6)
[2020-03-26 19:33] LABS: Alcohol, Blood (Medical)-Serum < 3.0 mg/dL
[2020-03-26 19:37] LABS: Lactic Acid 1.1 mmol/L (0.4-1.9)
--- NOTE | 2020-03-26 20:15 | NURSING ---
Asked to see patient with primary nurse Patrick Christensen RN. Patient wanting to sign out AMA. Patient alert and oriented x 3. Also states Rashi is the president. Discussed with patient multiple times, it is not a safe plan for signing out AMA, that he should stay for continued treatment. There is a risk of having another seizure again and he could get hurt worse, he should stay and get his medications adjusted. He states over and over he is not staying he is going home.
--- NOTE | 2020-03-26 20:18 | NURSING ---
Addendum entered by Russ Christensen 03/26/20 22:11: TAXI RIDE ARRANGED BY MONA COSTA, PATIENT STATED THAT HE WOULD PAY FOR TAXI HIMSELF. Original Note: PATIENT REQUESTING TO SIGN OUT AGAINST MEDICAL ADVICE. I DISCUSSED AT LENGTH WITH THE PATIENT WHY HE NEEDS TO BE IN THE HOSPITAL TO RECEIVE TREATMENT.CHARGE NURSE TIAGO AND I PROVIDED EDUCATION MULTIPLE TIMES. DR. HINDS AND DR. GUNTER NOTIFIED OF PATIENT'S REQUEST TO SIGN OUT AMA. PATIENT IS ALERT AND ORIENTED AND ANSWERS ALL ORIENTATION QUESTIONS APPROPRIATELY. DR. GUNTER STATES THAT PATIENT SEEMS TO BE CAPABLE OF MAKING HIS OWN DECISIONS. THIS RN AMBULATED PATIENT IN [facility], PATIENT HAS AN UNSTEADY GAIT. EDUCATION PROVIDED FOR FALL RISK PREVENTION. PATIENT WAS NOT RECEPTIVE OF EDUCATION, STATES I JUST NEED TO GO HOME AND TAKE CARE OF MY DOG AND CLEAN MY HOUSE. PATIENT WAS UNABLE TO FIND TRANSPORTATION. THIS RN REVEIWED AMA PAPERWORK WITH PATIENT AND HE SIGNED THE AMA FORM. COPY OF FORM GIVEN TO PATIENT, ORIGINAL PLACED ON CHART. OFFICER Sly COSTA RESPONDED TO ROOM TO ASSIST PATIENT OFF OF THE UNIT.
== END 2020-03-26 20:20 | disposition left against medical advice (07) ==
LOC: ED 14:18 → PCU 17:28
PROVIDERS: Admitting Provider Student in an Organized Health Care Education/Training Program; Emergency Provider Emergency Medicine; PCP Psychiatry & Neurology Psychiatry; Visit Provider Student in an Organized Health Care Education/Training Program
DX: A41.9 Sepsis, unspecified organism (principal); G40.909 Epilepsy, unspecified, not intractable, without status epilepticus; G89.29 Other chronic pain; E87.1 Hypo-osmolality and hyponatremia; N39.0 Urinary tract infection, site not specified; S51.012A Laceration without foreign body of left elbow, initial encounter; X58.XXXA Exposure to other specified factors, initial encounter; Y93.9 Activity, unspecified; Y92.9 Unspecified place or not applicable; F31.9 Bipolar disorder, unspecified; F41.9 Anxiety disorder, unspecified; I10 Essential (primary) hypertension; F17.210 Nicotine dependence, cigarettes, uncomplicated; Z79.899 Other long term (current) drug therapy; F10.10 Alcohol abuse, uncomplicated; E78.5 Hyperlipidemia, unspecified
CPT/HCPCS: 12001; 36415; 70450; 80053; 80320; 81001; 82140; 83605; 83690; 83735; 84484; 85025; 85610; 85730; 87040; 87086; 87088; 96361; 96365; 96367; 96375; 99218; 99285; J7030; J7040; A4216; G0378; G0480

== ENCOUNTER 2020-04-20 12:46 | Inpatient (IN) | payer MEDICARE, MEDICAID, SELFPAY ==
[2020-03-26 17:52] VITALS: BMI 26.2
[2020-04-20] VITALS (18 sets, daily range): BP systolic 104–183; BP diastolic 70–105; PULSE 114–135; RESP 23–39; TEMP 36.7–38.4; O2SAT 90–96; BMI 25.2; BMI 24.5; BMI 24.6
--- NOTE | 2020-04-20 13:07 | EKG12_ITS ---
Test Reason : Blood Pressure : / mmHG Vent. Rate : 122 BPM Atrial Rate : 122 BPM P-R Int : 160 ms QRS Dur : 102 ms QT Int : 414 ms P-R-T Axes : 006 -36 016 degrees QTc Int : 589 ms Sinus tachycardia Left axis deviation Inferior infarct , age undetermined Abnormal ECG Confirmed by JUAN JOSE FLULER ([id number]), social media editor FREDIS PULIDO ([id number]) on 04/23/2020 2:11:48 PM Referred By: LEANDER Confirmed By:JUAN JOSE FULLER
--- NOTE | 2020-04-20 13:08 | CT_ITS ---
STUDY: CT BRAIN WITHOUT CONTRAST REASON FOR EXAM: Male, 59 years old. Trauma RADIATION DOSAGE (If Supplied By Facility): CTDIvol = ( 60.81 ) mGy, DLP = ( 1067.08 ) mGycm TECHNIQUE: Transaxial CT imaging of the brain was performed without administration of intravenous contrast material. Individualized dose optimization techniques were used for this CT. COMPARISON: 03/26/2020 FINDINGS: There is no acute bleed or infarct. There are stable chronic ischemic and atrophic changes. The ventricles are normal in configuration. There is no hydrocephalus. The visualized paranasal sinuses are clear. The mastoid air cells are well aerated. There is no skull fracture. CT/Brain/Head without Contrast IMPRESSION: Stable chronic ischemic and atrophic changes. No acute intracranial abnormality. Electronically Signed: Hever Bear, at 15:24 EDT Tel , Service support ,
--- NOTE | 2020-04-20 13:10 | CT_ITS ---
STUDY: CT CERVICAL SPINE WITHOUT CONTRAST REASON FOR EXAM: Male, 59 years old. Trauma RADIATION DOSAGE (If Supplied By Facility): CTDIvol = ( 29.31 ) mGy, DLP = ( 582.35 ) mGycm TECHNIQUE: High resolution transaxial imaging was performed without contrast material. Sagittal and coronal images were reconstructed. Individualized dose optimization techniques were used for this CT. COMPARISON: 11/04/2015 FINDINGS: There is no evidence of fracture or dislocation in the cervical spine. The dens is intact. There is straightening of the normal cervical lordosis which may be due to paraspinal muscle spasm or may be positional in nature. The vertebral body heights are well-maintained. There are stable mild degenerative changes. The visualized paraspinal soft tissues are within normal limits. CT/Spine Cervical without Contras IMPRESSION: No fracture or dislocation in the cervical spine. Stable mild degenerative change. Straightening of the normal cervical lordosis which may be due to paraspinal muscle spasm or may be positional in nature. Electronically Signed: Hever Bear, at 15:29 EDT Tel , Service support ,
--- NOTE | 2020-04-20 13:11 | ED.DCSUM_ITS ---
History of Present Illness Chief Complaint: Weakness Informant: Patient Narrative: Iron is a 59-year-old male who presents with concern for being found down by his neighbor this morning. States that he fell sometime during the morning or overnight but is unsure when. States that he may have had a seizure. States that he has not had seizures before in the past. Patient states that he does drink 4-5 beers per day. States that at this time he has no complaints. Appears that his past medical history is consistent with epilepsy. Past Medical History - Allergies and Home Meds Allergies/Adverse Reactions: Allergies lisinopril Allergy (Verified 04/20/20 12:54) Angioedema peanut Allergy (Verified 04/20/20 12:54) Hives Primary Care Physician: Thania Herrmann MD [Primary Care Provider] - Past Medical History: - - bipolar and seizures Surgical History: - - Pins and plates in left forearm Lives: Alone Smoking Status: Current every day smoker Alcohol: Heavy Drugs: None Review of Systems General: Denies: Chills, Fever, Sweats Eyes: Denies: Visual changes - bilaterally, Diplopia ENT: Denies: Rhinorrhea, Sore throat Cardiovascular: Denies: Chest pain, Palpitations Respiratory: Denies: Dyspnea, Cough, Dyspnea on exertion Gastrointestinal: Denies: Abdominal pain, Nausea, Vomiting, Diarrhea, Melena, Hematochezia Genitourinary: Denies: Dysuria, Hematuria, Frequency Musculoskeletal: Denies: Back pain, Extremity Pain Skin: Denies: Rash, Wounds Neurological: Denies: Headache, Weakness, Numbness - seizure Physical Exam Vital Signs/Narrative: Vital Signs Temp Pulse Resp BP Pulse Ox 04/20/20 12:47 98.4 F 122 H 23 H 121/76 H 96 Inital Vital Signs reviewed: Yes General: Well nourished, Well developed, No Acute Distress Head: Normocephalic, Atraumatic Eyes: Perrl, EOMI ENT: Moist mucous membranes, No rhinorrhea Neck: Supple, Nontender Cardiovascular: Regular rhythm, No murmurs, Tachycardia Respiratory: No distress, CTA bilaterally, Chest nontender Abdomen: Soft, Nontender, Nondistended, Normal bowel sounds Back: Nontender, Normal Inspection Extremities: Nontender, No edema Skin: Normal color, No rash Neurological: Alert, Oriented x3, Cranial nerves II-XII grossly intact, Normal Strength, Normal Sensation Psychological: Normal affect, Normal Mood Diagnostic/Tx/Re-eval Clinical Impression(s) from Imaging Studies Brain CT 04/20/20 13:08 IMPRESSION: Stable chronic ischemic and atrophic changes. No acute intracranial abnormality. Electronically Signed: Hever Marianela, at 15:24 EDT Tel , Service support , Cervical Spine CT 04/20/20 13:10 IMPRESSION: No fracture or dislocation in the cervical spine. Stable mild degenerative change. Straightening of the normal cervical lordosis which may be due to paraspinal muscle spasm or may be positional in nature. Electronically Signed: Hever Bear, at 15:29 EDT Tel , Service support , Chest X-Ray 04/20/20 15:00 IMPRESSION: Linear opacity in the right lung base which likely represents atelectasis. Otherwise, clear lungs. Electronically Signed: Hever Marianela, at 15:24 EDT Tel , Service support , Laboratory Data 04/20/20 04/20/20 04/20/20 12:50 12:50 12:50 WBC 12.3 H RBC 3.91 L Hgb 13.4 Hct 38.5 L MCV 98.5 H MCH 34.3 H MCHC 34.8 RDW Std Deviation 47.3 H RDW Coeff of William 13.2 Plt Count 115 L MPV 10.0 Immature Gran % (Auto) 1.100 H Neut % (Auto) 87.3 H Lymph % (Auto) 4.3 L [place] % (Auto) 7.1 Eos % (Auto) 0.0 Baso % (Auto) 0.2 Absolute Neuts (auto) 10.8 H Absolute Lymphs (auto) 0.53 L Nucleated RBC % 0 Differential Comment SCANNED Toxic Vacuolation RARE Platelet Estimate SLT DEC PT 14.3 INR 1.2 APTT 35.9 Sodium 130 L Potassium 2.5 L* Chloride 94 L Carbon Dioxide 23.0 Anion Gap 13 BUN 12 Creatinine 1.06 Estim Creat Clear Calc 82.71 Est GFR (MDRD) Af Amer 91 Est GFR (MDRD) Non-Af 75 BUN/Creatinine Ratio 11.3 Glucose 146 H Lactic Acid Calcium 8.4 L Magnesium Total Bilirubin 0.70 AST 233 H ALT 76 H Alkaline Phosphatase 123 H Total Creatine Kinase 2955 H Troponin I < 0.015 Total Protein 8.2 Albumin 2.9 L Globulin 5.3 H Albumin/Globulin Ratio 0.5 L Urine Color Urine Clarity Urine pH Ur Specific [place] Urine Protein Urine Glucose (UA) Urine Ketones Urine Occult Blood Urine Nitrite Urine Bilirubin Urine Urobilinogen Ur Leukocyte Esterase Urine RBC Urine WBC Ur Squamous Epith Cells Urine Bacteria Urine Mucus Ethyl Alcohol 04/20/20 04/20/20 04/20/20 12:50 13:22 13:50 WBC RBC Hgb Hct MCV MCH MCHC RDW Std Deviation RDW Coeff of William Plt Count MPV Immature Gran % (Auto) Neut % (Auto) Lymph % (Auto) [place] % (Auto) Eos % (Auto) Baso % (Auto) Absolute Neuts (auto) Absolute Lymphs (auto) Nucleated RBC % Differential Comment Toxic Vacuolation Platelet Estimate PT INR APTT Sodium Potassium Chloride Carbon Dioxide Anion Gap BUN Creatinine Estim Creat Clear Calc Est GFR (MDRD) Af Amer Est GFR (MDRD) Non-Af BUN/Creatinine Ratio Glucose Lactic Acid 2.5 H* Calcium Magnesium 1.7 Total Bilirubin AST ALT Alkaline Phosphatase Total Creatine Kinase Troponin I Total Protein Albumin Globulin Albumin/Globulin Ratio Urine Color Yellow Urine Clarity Cloudy Urine pH 7.0 Ur Specific [place] 1.010 Urine Protein 100 H Urine Glucose (UA) Normal Urine Ketones 15 H Urine Occult Blood 250 H Urine Nitrite Negative Urine Bilirubin 1 H Urine Urobilinogen 4 H Ur Leukocyte Esterase 500 H Urine RBC 5-10 SEEN Urine WBC 10-25 SEEN Ur Squamous Epith Cells 0 SEEN Urine Bacteria 4+ Urine Mucus 0 SEEN Ethyl Alcohol 04/20/20 14:35 WBC RBC Hgb Hct MCV MCH MCHC RDW Std Deviation RDW Coeff of William Plt Count MPV Immature Gran % (Auto) Neut % (Auto) Lymph % (Auto) [place] % (Auto) Eos % (Auto) Baso % (Auto) Absolute Neuts (auto) Absolute Lymphs (auto) Nucleated RBC % Differential Comment Toxic Vacuolation Platelet Estimate PT INR APTT Sodium Potassium Chloride Carbon Dioxide Anion Gap BUN Creatinine Estim Creat Clear Calc Est GFR (MDRD) Af Amer Est GFR (MDRD) Non-Af BUN/Creatinine Ratio Glucose Lactic Acid Calcium Magnesium Total Bilirubin AST ALT Alkaline Phosphatase Total Creatine Kinase Troponin I Total Protein Albumin Globulin Albumin/Globulin Ratio Urine Color Urine Clarity Urine pH Ur Specific [place] Urine Protein Urine Glucose (UA) Urine Ketones Urine Occult Blood Urine Nitrite Urine Bilirubin Urine Urobilinogen Ur Leukocyte Esterase Urine RBC Urine WBC Ur Squamous Epith Cells Urine Bacteria Urine Mucus Ethyl Alcohol < 3.0 - Rhythm Strip Rhythm Strip: Sinus Tach Rate: 122 Ectopy: None - EKG Initial EKG Interpretation: Sinus Tachycardia, - - Tachycardia at 122 bpm. MS interval 160 ms. QRS of 102 ms. QTC of 589 ms. Left axis deviation. Nonspecific ST changes. - Medical Decision Making Arrival patient appears disheveled and is tachycardic. Patient is alert however his orientation waxes and wanes. Patient does not remember having a seizure. CT brain and cervical spine negative. Chest x-ray shows no evidence of pneumonia. Patient does have a leukocytosis as well as a lactic acidosis of 2.5. This confirms a diagnosis of severe sepsis secondary to a likely UTI. Patient was given Rocephin. Hypokalemia of 2.5. Patient was given 40 mEq of potassium IV. Patient was also given a total of 2 L of normal saline. Patient remains tachycardic and serum alcohol comes back negative. I feel patient is likely in alcohol withdrawal as well. He is hallucinating within the room. Was given 1 mg of Ativan. Patient also has an elevated CPK likely from laying on the ground overnight. Fluid hydration will continue. Patient will be admitted to the hospital for further evaluation and management. Stable at time of admission. ED Disposition - Plan for ED Patient: Diagnosis: Severe sepsis, UTI (urinary tract infection), Hypokalemia, Elevated CPK, Alcohol withdrawal, Seizure Referrals: Thania Herrmann MD [Primary Care Provider] -
[2020-04-20 13:34] LABS: Absolute Lymphocyte Count 0.53 X10^3/uL (0.83-4.51); Absolute Neutrophil Count 10.8 X10^3/uL (2.0-7.7); Basophil# 0.02 X10^3/uL; Basophil% 0.2 % (0-1); Hematocrit 38.5 % (40-54); Hemoglobin 13.4 g/dL (13.0-16.5); Lymphocyte # 0.53 X10^3/ul (4.0); Lymphocyte % 4.3 % (19-41); Mean Corp Hgb Conc 34.8 g/dL (32-36); Mean Corpuscular Hgb 34.3 pg (27.0-32.0); Mean Corpuscular Volume 98.5 fL (80-94); Monocyte# 0.88 X10^3/uL; Monocyte% 7.1 % (0-10); NRBC Flagged by Analyzer 0 % (0-5); Neutrophil # 10.76 X10^3/uL (2.7-7.7); Neutrophil % 87.3 % (47-70); POSITIVE DIFFERENTIAL YES; POSITIVE MORPHOLOGY YES; Platelet Count 115 K/mm3 (150-450); RBC Distribution Width CV 13.2 % (11.6-14.6); RBC Distribution Width SD 47.3 fl (35.1-43.9); Red Blood Count 3.91 M/mm3 (4.6-6.2); White Blood Count 12.3 K/mm3 (4.4-11.0)
[2020-04-20 13:38] LABS: Differential Indicated SCAN CRITERIA MET; International Normalized Ratio 1.2; Prothrombin Time (Protime)PT. 14.3 SECONDS (11.7-14.9)
[2020-04-20 13:39] LABS: Partial Thromboplast Time 35.9 Seconds (24.1-36.2)
[2020-04-20] MEDS: 0.9% Normal Saline 1,000 ML 999 ML IV ×2 (14:00→15:37)
[2020-04-20 14:01] LABS: ALB/GLOB Ratio 0.5 RATIO (0.9-2.4); AST(SGOT) 233 U/L (15-37); Alanine Aminotransfer ALT/SGPT 76 U/L (16-61); Albumin, Serum 2.9 g/dL (3.2-5.0); Alkaline Phosphatase 123 U/L (45-117); Anion Gap 13 (5-15); BUN 12 mg/dL (7-18); BUN/Creat Ratio 11.3 RATIO (10-20); CPK Total, Creatine Kinase 2955 U/L (39-308); Calcium,Total 8.4 mg/dL (8.5-10.1); Chloride 94 mmol/L (98-107); Creatinine, Serum 1.06 mg/dL (0.70-1.30); EST Glomerular Filtration Rate 75 mL/min (>60); Est Glom Filt Rate - Afr Amer 91 mL/min (>60); Estimated Creatinine Clearance 82.71 ml/min; Globulin 5.3 g/dL (2.2-4.2); Glucose 146 mg/dL (74-106); Potassium 2.5 mmol/L (3.5-5.1); Protein, Total 8.2 g/dL (6.4-8.2); Sodium Level 130 mmol/L (136-145)
--- NOTE | 2020-04-20 14:03 | ED.RN ---
NOTIFIED OF K+ OF 2.5.
[2020-04-20 14:06] LABS: Differential Comment SCANNED; Platelet Estimate SLT DEC (ADEQ); Vacuolated Cells RARE
[2020-04-20 14:13] LABS: Lactic Acid 2.5 mmol/L (0.4-1.9)
[2020-04-20 14:13] LABS: Mucous, Urine 0 SEEN /hpf (<or=2+); Squamous Epithelial Cells - UA 0 SEEN /hpf (0-5)
[2020-04-20 14:15] LABS: Color, Urine Yellow (Yellow); Glucose, Dipstick Normal (Normal); Ketone-Dipstick 15 mg/dl (Negative); Leukocyte Esterase-Dipstick 500 /ul (Negative); Nitrite-Dipstick Negative (Negative); Occult Blood-Urine 250 /ul (Negative); Protein-Dipstick 100 mg/dl (Negative); Urine Clarity Cloudy (Clear); Urine Urobilinogen 4 mg/dl (Normal)
[2020-04-20 14:17] LABS: Urine Bilirubin Dipstick 1 mg/dL (Negative)
[2020-04-20 14:21] LABS: Magnesium 1.7 mg/dL (1.6-2.6)
[2020-04-20 14:23] LABS: Bacteria 4+ /hpf (None Seen); Red Blood Cells-Urine 5-10 SEEN /hpf (0-5); White Blood Cells 10-25 SEEN /hpf (0-5)
[2020-04-20] MEDS: Potassium Chloride 10mEq/100mL 10 MEQ/100 ML IV.SOLN. 100 MEQ IV BOLUS ×4 (14:30→18:52)
--- NOTE | 2020-04-20 15:00 | RAD_ITS ---
STUDY: X-RAY CHEST REASON FOR EXAM: Male, 59 years old. Weakness TECHNIQUE: Frontal view of the chest COMPARISON: 01/05/2020 FINDINGS: There is linear opacity in the right lung base which likely represents atelectasis. The lungs are otherwise clear. There are no pleural effusions. There is no pneumothorax. The heart is normal in size. The visualized osseous structures are within normal limits. RAD/Chest 1 View (Portable) IMPRESSION: Linear opacity in the right lung base which likely represents atelectasis. Otherwise, clear lungs. Electronically Signed: Hever Bear, at 15:24 EDT Tel , Service support ,
[2020-04-20 15:12] LABS: Alcohol, Blood (Medical)-Serum < 3.0 mg/dL
[2020-04-20] MEDS: Ceftriaxone 1 GM/50 ML BAG IV (15:37)
[2020-04-20] MEDS: LORazepam 2 MG/ML Syringe 1 MG IV (16:03)
--- NOTE | 2020-04-20 17:11 | HP.PCM_ITS ---
Problem List (1) Severe sepsis Status: Acute Comment: due to PNA and UTI (2) Alcoholic hepatitis Status: Acute (3) Angioedema of lips Status: Resolved (4) Hypertension Status: Chronic (5) Hyperlipidemia Status: Chronic (6) SIRS (systemic inflammatory response syndrome) Status: Acute (7) Lactic acidosis Status: Acute (8) Seizure Status: Resolved Comment: I suspect he has had seizures due to alcohol withdrawal (9) Urinary tract infection Status: Acute (10) Laceration of left elbow Status: Resolved (11) Hypokalemia Status: Acute (12) Elevated CPK Status: Acute (13) Alcohol withdrawal Status: Acute Qualifiers: Complication of substance-induced condition: with delirium Qualified Code(s): F10.231 - Alcohol dependence with withdrawal delirium (14) Bipolar disorder Status: Acute (15) Tobacco dependence Status: Acute (16) EtOH dependence Status: Acute (17) Hyponatremia Status: Acute History of Present Illness Date of Admission: 04/20/20 Chief Complaint: found on the floor by his neighbor. He was unable to get up. Hallucinating in the ED. The patient is a 59 year old M with a past medical history of hypertension, bipolar disorder, ? hx of seizure disorder ( but on no antiepileptic drugs and I suspect the seizures are due to acute alcohol withdrawal), tobacco dependence, EtOH dependence and hyperlipidemia who presented to the ED at [facility] on 04/20/20 after being found on the floor by his neighbor. He was unable to get up off the floor by himself. He does not recall how he got on the floor. In the ED he was having visual hallucinations ( he saw chickens in the room while I was examining him), he was tremulous and tachycardic. He denied dysuria, cough, sore throat, nausea, vomiting, abdominal pain. He denied chest pain and also shortness of breath. Vital signs at presentation to the emergency department were temperature 98.4, pulse rate 122, blood pressure 121/76, respiratory rate 23 and he was 96% saturated on room air. EKG shows sinus tachycardia with a prolonged QTC, no ST elevation and no significant ST or T wave changes. Chest x-ray show ed probable infiltrate in the right base. White blood cell count was elevated at 12.3 with 87% neutrophils. Hemoglobin is 13.4 and the platelets were low at 115,000. PT and PTT were within normal limits. Sodium was low at 130 and the potassium was low at 2.5. BUN was 12 with a creatinine of 1.06 which is up from 0.44 on 01/06/2020. Lactic acid was elevated at 2.5. Bilirubin was normal but the AST was 233 and the ALT was 76 which is consistent with alcoholic hepatitis. Alkaline phosphatase was 123. Total CK was increased to 2955. UA shows 10-25 WBCs and 5-10 RBCs per high-power field. There was 4+ bacteria present. Ethyl alcohol was less than 3.0. He had a cough and diffuse rhonchi while I was in the room. He is ill kempt and unclean, He insists he is going home but, I told him he is hallucinating and not competent at this time to sign out now so he will have to stay in the hospital. Past Medical History Past Medical History (Chronic Problems): Chronic Problems (Last Updated 01/05/20 @ 19:[address] Chapin Simpson DO) Hypertension (Chronic) Hyperlipidemia (Chronic) Medical History: Medical History (Last Reviewed 04/20/20 @ 17:[address] Татьяна Gamble DO) Anxiety F41.9 Bipolar disorder F31.9 Seizure R56.9 Allergies lisinopril Allergy (Verified 04/20/20 12:54) Angioedema peanut Allergy (Verified 04/20/20 12:54) Hives Home Medications: Ambulatory Orders Medication Instructions Recorded Fluoxetine [Prozac] 60 mg PO DAILY 08/06/15 Quetiapine Fumarate [Quetiapine 800 mg PO QHS 01/05/20 Fumarate ER] Atorvastatin Calcium [Lipitor] 40 mg PO DAILY 03/26/20 Metoprolol Succinate [Toprol Xl] 50 mg PO 03/26/20 Surgical History: - - Pins and plates in left forearm Psychiatric History: Anxiety, Bipolar Lives: Alone, - - he has 2 dogs that live with him Smoking Status: Current every day smoker Tobacco Use: Cigarettes Alcohol: Heavy Drugs: None - *Family History Maternal Family History: Family History (Last Reviewed 04/20/20 @ 17:[address] Татьяна Gamble DO) Father Myocardial infarction Mother Stomach cancer Paternal Family History: Family History (Last Reviewed 04/20/20 @ 17:[address] Ashlee Sementi, DO) Father Myocardial infarction Mother Stomach cancer Review of Systems Constitutional: Reports: Weakness. Denies: Chills, Fever, Weight Change Eyes: Denies: Blurred vision HEENT: Denies: Difficulty Swallowing, Head Aches, Nasal Congestion, Sinus Congestion, Sinus Drainage, Sore Throat Cardiovascular: Denies: Chest Pain, Edema, Light Headedness, Palpitations Respiratory: Denies: Cough, Shortness of Breath, Shortness of breath at rest, Sputum production Gastrointestinal: Denies: Abdominal Pain, Nausea, Vomiting Genitourinary: Reports: Nocturia. Denies: Dysuria, Retention Musculoskeletal: Denies: Joint Pain, Joint Tenderness Skin: Denies: Jaundice, Rash, Wounds Neurological: Reports: Seizures - this is unclear. Denies: Focal weakness, Numbness, Tingling Psychiatric: Reports: - - Bipolar disorder. Denies: Anxiety, Depression, Homicidal Ideations, Suicidal Ideations Endocrine: Denies: Change in Body Habitus, Hx of Thyroiditis Hematologic/ Lymphatic: Denies: Easy Bruising, Easy Bleeding, Hx of blood clot VTE Information - Inpt Only VTE Present on Admission: No VTE Mechan Device Prophylaxis: Knee High STEPHANIE Hose VTE Pharm Prophylaxis ordered?: Yes Patient Problems: Active and Suspected Problems (Last Updated 01/05/20 @ 19:[address] Chapin Simpson, DO) Urinary tract infection (Acute) Hypokalemia (Acute) Elevated CPK (Acute) Alcohol withdrawal (Acute) Severe sepsis (Acute) due to PNA and UTI Alcoholic hepatitis (Acute) Bipolar disorder (Acute) Tobacco dependence (Acute) EtOH dependence (Acute) Hyponatremia (Acute) - Physical Exam Vitals/I&O's: Vital Signs Temp Pulse Resp BP Pulse Ox 98.4 F 122 H 23 H 121/76 H 96 04/20/20 12:47 04/20/20 12:47 04/20/20 12:47 04/20/20 12:47 04/20/20 12:47 Oxygen Delivery Method Room Air Weight: 191 lb 12.835 oz Body Mass Index (BMI) 25.2 Intake and Output for Last 24 Hours 04/18/20 04/19/20 04/20/20 23:59 23:59 23:59 Intake Total 1100 / 1100 Balance 1100 / 1100 General: Alert, Cooperative - cooperative until I told him he had to stay in the hospital and then he was trying to leave but he is too weak to get out of bed HEENT: Atraumatic, PERRLA, EOMI, Normocephalic, - - he has DC coming out of both eyes......R>L, and he has conjunctival injection Oral: Dry Mucosa, - - tongue has a patchy yellow white coating Neck: Supple, No JVD, Negative Carotid Bruits Lungs: Clear to auscultation, Rhonchi, - - Not tachypneic, no conversational dyspnea, no accessory muscle use. Cardiovascular: Regular rate, No murmurs Abdomen: Bowel Sounds Present, Soft, Non Tender, Distended - Mildly distended and tympanic, no guarding with palpation. Extremities: No edema, No Calf Tenderness Skin: No rashes, No breakdown Musculoskeletal: No Tenderness to Palpation of Joints or Extremities Neurological: Cranial nerves II-XII grossly intact, - - he is having tremors of the hands. Psych/Mental Status: Hallucinations, Restless Laboratory Results 04/20/20 12:50: WBC 12.3 H, RBC 3.91 L, Hgb 13.4, Hct 38.5 L, MCV 98.5 H, MCH 34.3 H, MCHC 34.8, RDW Std Deviation 47.3 H, RDW Coeff of William 13.2, Plt Count 115 L, MPV 10.0, Immature Gran % (Auto) 1.100 H, Neut % (Auto) 87.3 H, Lymph % (Auto) 4.3 L, [place] % (Auto) 7.1, Eos % (Auto) 0.0, Baso % (Auto) 0.2, Absolute Neuts (auto) 10.8 H, Absolute Lymphs (auto) 0.53 L, Nucleated RBC % 0, Differential Comment SCANNED, Toxic Vacuolation RARE, Platelet Estimate SLT 04/20/20 12:50: PT 14.3, INR 1.2, APTT 35.9 04/20/20 12:50: Sodium 130 L, Potassium 2.5 L*, Chloride 94 L, Carbon Dioxide 23.0, Anion Gap 13, BUN 12, Creatinine 1.06, Estim Creat Clear Calc 82.71, Est GFR (MDRD) Af Amer 91, Est GFR (MDRD) Non-Af 75, BUN/Creatinine Ratio 11.3, Glucose 146 H, Calcium 8.4 L, Total Bilirubin 0.70, AST 233 H, ALT 76 H, Alkaline Phosphatase 123 H, Total Creatine Kinase 2955 H, Troponin I < 0.015, Total Protein 8.2, Albumin 2.9 L, Globulin 5.3 H, Albumin/Globulin Ratio 0.5 L 04/20/20 12:50: Magnesium 1.7 04/20/20 13:22: Lactic Acid 2.5 H* 04/20/20 13:50: Urine Color Yellow, Urine Clarity Cloudy, Urine pH 7.0, Ur Specific [place] 1.010, Urine Protein 100 H, Urine Glucose (UA) Normal, Urine Ketones 15 H, Urine Occult Blood 250 H, Urine Nitrite Negative, Urine Bilirubin 1 H, Urine Urobilinogen 4 H, Ur Leukocyte Esterase 500 H, Urine RBC 5-10 SEEN, Urine WBC 10-25 SEEN, Ur Squamous Epith Cells 0 SEEN, Urine Bacteria 4+, Urine Mucus 0 SEEN 04/20/20 14:35: Ethyl Alcohol < 3.0 Current Medications Potassium Chloride () 10 meq in 100 mls @ 100 mls/hr IV BOLUS Q1H PAWAN Stop: 04/20/20 18:29 Last Admin: 04/20/20 15:50 Dose: 100 mls/hr Documented by: Assessment/Plan All Active Problems (Last Updated 01/05/20 @ 19:[address] Chapin Simpson, DO) SIRS (systemic inflammatory response syndrome) (Acute) Lactic acidosis (Acute) Urinary tract infection (Acute) Hypokalemia (Acute) Elevated CPK (Acute) Alcohol withdrawal (Acute) Severe sepsis (Acute) Alcoholic hepatitis (Acute) Bipolar disorder (Acute) Tobacco dependence (Acute) EtOH dependence (Acute) Hyponatremia (Acute) Seizure (Resolved) Angioedema of lips (Resolved) Laceration of left elbow (Resolved) Impressions 1. Severe sepsis with tachycardia, lactic acidosis and ARF due to UTI and R basilar PNA (radiologist called atelectasis however he is coughing and has rhonchi) which I suspect may be due to aspiration. 2. UTI - this is the second time this year he has had a UTI.......urine retention? Will repeat a UA and culture after he is washed.........The last time he had a urine culture obtained in the ED it was contaminated and grew next gram positives and gram negatives. 3. ARF - likely due to dehydration - I suspect he was probably lying on the floor longer than a few hours. 4. R basilar atelectasis vs PNA - will treat for aspiration PNA since he has a cough and rhonchi 4. conjunctivitis 5. Hypokalemia 6. Hyponatremia 7. Acute alcoholic hepatitis 8. Elevated total creatine kinase-most likely secondary to lying on the floor for a prolonged period of time 9. Seizure disorder? or seizures due to acute ETOH withdrawal? He is not on AED's so I presume he has ETOH withdrawal seizures. Will not start an AED at this time. 10. chronic medical conditions: BPD/HTN/HLD/tobacco dependence/alcoholism/EtOH dependence. These conditions complicate care, management and prognosis. I suspect he is not compliant with medications Admit to the intensive care unit for acute alcohol withdrawal, severe sepsis, urinary tract infection and suspected aspiration pneumonia CBC, CMP, urine drug screen, alcohol level EKG - he has a prolonged QTC but, this is likely due to the low K. Will need to recheck after the K is repleted Intiate order set for EtOH withdrawal. CIWA protocol ordered. SW to follow pt in the hospital and develop a plan for treatment at [facility] Smoking cessation counselling Start Unasyn 3 g IV Q6H Urine culture, sputum culture, blood cultures IS Albuterol 2.5 mg aerosol every 2 hours as needed wheezing Supplement potassium Hydrate Obtain records from the counseling center Culture the DC from the eyes Check a HGBA1C, phosphorus Recheck lab in the AM ? whether he is competent to live by himself.....will need to be seen by PT and OT to see if he will be able to care for himself at home Check a COVID Inpatient E&M: 85909 Init Hosp L3
[2020-04-20 17:40] LABS: Reflex Lactate? Y
[2020-04-20] MEDS: Metoprolol Tartrate 5 MG/5 ML Vial IV (19:48)
[2020-04-20 19:52] LABS: Phosphorus 2.8 mg/dL (2.5-4.9)
[2020-04-20 20:08] LABS: Amphetamine Urine VISTA NEGATIVE (<1000 ng/mL); Barbiturate Urine VISTA NEGATIVE (< 200 ng/mL); Benzodiazepine Urine VISTA NEGATIVE (< 200 ng/mL); Cocaine Urine VISTA NEGATIVE (< 300 ng/mL); Ecstacy Urine VISTA NEGATIVE (< 500 ng/mL); Methadone Urine VISTA NEGATIVE (< 300 ng/mL); PCP Urine VISTA NEGATIVE (< 25 ng/mL); THC Urine VISTA POSITIVE (< 50 ng/mL); Vista UDS pH Range 6
[2020-04-20] MEDS: dilTIAZem 25 MG/5 ML Vial 10 MG IV BOLUS (20:57)
[2020-04-20] MEDS: QUEtiapine 100 MG Tablet 400 MG PO (20:58)
[2020-04-20 21:40] LABS: M R Staph aureus DNA By PCR Negative (Negative); Probe Check PASS; Specimen Processing Control PASS
[2020-04-20 21:47] LABS: Mucous, Urine 0 SEEN /hpf (<or=2+)
[2020-04-20 21:51] LABS: Color, Urine Yellow (Yellow); Glucose, Dipstick Normal (Normal); Ketone-Dipstick 50 mg/dl (Negative); Leukocyte Esterase-Dipstick 500 /ul (Negative); Nitrite-Dipstick Negative (Negative); Occult Blood-Urine 250 /ul (Negative); Protein-Dipstick 100 mg/dl (Negative); Urine Bilirubin Dipstick Negative (Negative); Urine Clarity Cloudy (Clear); Urine Urobilinogen 4 mg/dl (Normal); Urine pH 6.5 (5.0 - 8.0)
[2020-04-20 22:35] LABS: Squamous Epithelial Cells - UA 0-5 SEEN /hpf (0-5); White Blood Cells >100 SEEN /hpf (0-5)
[2020-04-20 22:38] LABS: Transitional Epithelial - Ur 0-5 SEEN /hpf (0-5)
[2020-04-20 22:39] LABS: Red Blood Cells-Urine 5-10 SEEN /hpf (0-5)
[2020-04-20 22:40] LABS: Bacteria RARE /hpf (None Seen)
[2020-04-21] VITALS (35 sets, daily range): BP systolic 86–139; BP diastolic 57–82; PULSE 88–123; RESP 18–36; TEMP 36.8–37.4; O2SAT 91–100
[2020-04-21] MEDS: Metoprolol Tartrate 5 MG/5 ML Vial IV ×4 (00:47→18:21)
[2020-04-21] MEDS: LORazepam 2 MG/ML Syringe IV ×3 (03:42→21:21)
[2020-04-21 04:29] LABS: Absolute Lymphocyte Count 0.76 X10^3/uL (0.83-4.51); Absolute Neutrophil Count 6.2 X10^3/uL (2.0-7.7); Basophil# 0.01 X10^3/uL; Basophil% 0.1 % (0-1); Hematocrit 32.9 % (40-54); Hemoglobin 11.2 g/dL (13.0-16.5); Lymphocyte # 0.76 X10^3/ul (4.0); Lymphocyte % 9.7 % (19-41); Mean Corpuscular Hgb 33.7 pg (27.0-32.0); Mean Corpuscular Volume 99.1 fL (80-94); Mean Platelet Vol. 10.3 fl (6.2-12.0); Monocyte# 0.78 X10^3/uL; NRBC Flagged by Analyzer 0 % (0-5); Neutrophil % 79.4 % (47-70); POSITIVE COUNT YES; POSITIVE MORPHOLOGY YES; Platelet Count 92 K/mm3 (150-450); RBC Distribution Width CV 13.3 % (11.6-14.6); RBC Distribution Width SD 48.6 fl (35.1-43.9); Red Blood Count 3.32 M/mm3 (4.6-6.2); White Blood Count 7.8 K/mm3 (4.4-11.0)
[2020-04-21 04:34] LABS: Differential Indicated SCAN CRITERIA MET
[2020-04-21 04:53] LABS: Platelet Estimate MOD DEC (ADEQ)
[2020-04-21 05:30] LABS: ALB/GLOB Ratio 0.5 RATIO (0.9-2.4); AST(SGOT) 345 U/L (15-37); Alanine Aminotransfer ALT/SGPT 96 U/L (16-61); Albumin, Serum 2.1 g/dL (3.2-5.0); Alkaline Phosphatase 84 U/L (45-117); Anion Gap 13 (5-15); BUN 12 mg/dL (7-18); BUN/Creat Ratio 23.1 RATIO (10-20); CPK Total, Creatine Kinase 6155 U/L (39-308); Calcium,Total 7.1 mg/dL (8.5-10.1); Chloride 104 mmol/L (98-107); Creatinine, Serum 0.52 mg/dL (0.70-1.30); EST Glomerular Filtration Rate 172 mL/min (>60); Est Glom Filt Rate - Afr Amer 208 mL/min (>60); Estimated Creatinine Clearance 168.59 ml/min; Globulin 4.3 g/dL (2.2-4.2); Glucose 88 mg/dL (74-106); Magnesium 1.6 mg/dL (1.6-2.6); Phosphorus 2.6 mg/dL (2.5-4.9); Potassium 3.3 mmol/L (3.5-5.1); Protein, Total 6.4 g/dL (6.4-8.2); Sodium Level 136 mmol/L (136-145)
--- NOTE | 2020-04-21 08:02 | PCM.PROGNOTE ---
Patient Problems: Active and Suspected Problems (Last Reviewed 04/20/20 @ 17:[address] Татьяна Gamble, DO) Urinary tract infection (Acute) Hypokalemia (Acute) Elevated CPK (Acute) Alcohol withdrawal (Acute) Severe sepsis (Acute) due to PNA and UTI Alcoholic hepatitis (Acute) Hyponatremia (Acute) Seizure (Suspected) Subjective: Chief complaint: Follow-up after admission for severe sepsis secondary to acute cystitis and probable aspiration pneumonia, acute kidney injury, questionable alcohol withdrawal seizure as well as acute alcohol withdrawal. Patient seen and examined. He is awake and alert, oriented x2, dissented to time. He is restless and anxious. He denied any pain. He mentioned that he feels fine. This morning, he is afebrile, heart rate has been around 100, blood pressure stable, pulse ox is 93% on room air. - Physical Exam Vitals/I&O's: Vital Signs Temp Pulse Resp BP Pulse Ox 99.3 F H 102 H 28 H 133/70 H 93 04/21/20 04:00 04/21/20 07:00 04/21/20 07:00 04/21/20 07:00 04/21/20 07:00 Oxygen Delivery Method Room Air Weight: 187 lb 6.287 oz Body Mass Index (BMI) 24.5 Intake and Output for Last 24 Hours 04/19/20 04/20/20 04/21/20 23:59 23:59 23:59 Intake Total 3204.78 / 3359.78 1002.00 / 1002.00 Output Total 150 / 150 Balance 3054.78 / 3209.78 1002.00 / 1002.00 General: Alert, Cooperative, - - Oriented x2, disoriented to time. Anxious and restless. HEENT: Atraumatic, PERRLA, EOMI, Normocephalic Oral: Moist Mucosa, No Gingival or Mucosal Lesions/ Ulcerations Neck: Supple, No JVD, Negative Carotid Bruits, Trachea Midline, Thyroid Normal Size and Texture Lungs: No wheeze, No rales, Diminished, Rhonchi, - - Decreased breath sounds at the bases, scattered rhonchi. Cardiovascular: Regular rate, Regular Rhythm, Normal S1, Normal S2, PMI Normal, Tachycardic Abdomen: Bowel Sounds Present, Soft, Non Tender, Non-Distended, No Hepato-splenomegaly Extremities: No clubbing, No cyanosis, No edema Skin: No rashes, No breakdown Lymphatic: No Cervical, Supraclavicular, or Inguinal Adenopathy Neurological: Cranial nerves II-XII grossly intact, - - Moving all limbs. Psych/Mental Status: Anxious, Restless Laboratory Results 04/20/20 12:50: WBC 12.3 H, RBC 3.91 L, Hgb 13.4, Hct 38.5 L, MCV 98.5 H, MCH 34.3 H, MCHC 34.8, RDW Std Deviation 47.3 H, RDW Coeff of William 13.2, Plt Count 115 L, MPV 10.0, Immature Gran % (Auto) 1.100 H, Neut % (Auto) 87.3 H, Lymph % (Auto) 4.3 L, Evans % (Auto) 7.1, Eos % (Auto) 0.0, Baso % (Auto) 0.2, Absolute Neuts (auto) 10.8 H, Absolute Lymphs (auto) 0.53 L, Nucleated RBC % 0, Differential Comment SCANNED, Toxic Vacuolation RARE, Platelet Estimate SLT 04/20/20 12:50: PT 14.3, INR 1.2, APTT 35.9 04/20/20 12:50: Sodium 130 L, Potassium 2.5 L*, Chloride 94 L, Carbon Dioxide 23.0, Anion Gap 13, BUN 12, Creatinine 1.06, Estim Creat Clear Calc 82.71, Est GFR (MDRD) Af Amer 91, Est GFR (MDRD) Non-Af 75, BUN/Creatinine Ratio 11.3, Glucose 146 H, Calcium 8.4 L, Total Bilirubin 0.70, AST 233 H, ALT 76 H, Alkaline Phosphatase 123 H, Total Creatine Kinase 2955 H, Troponin I < 0.015, Total Protein 8.2, Albumin 2.9 L, Globulin 5.3 H, Albumin/Globulin Ratio 0.5 L 04/20/20 12:50: Magnesium 1.7 04/20/20 13:22: Lactic Acid 2.5 H* 04/20/20 13:30: Hemoglobin A1c 6.0 H 04/20/20 13:30: Phosphorus 2.8 04/20/20 13:30: Urine Opiates Screen NEGATIVE, Urine Methadone Screen NEGATIVE, Ur Barbiturates Screen NEGATIVE, Ur Phencyclidine Scrn NEGATIVE, Ur Amphetamines Screen NEGATIVE, U Methamphetamin-MDMA NEGATIVE, U Benzodiazepines Scrn NEGATIVE, Urine Cocaine Screen NEGATIVE, U Cannabinoids Screen POSITIVE H, Ur Drug Screen Comment 04/20/20 13:50: Urine Color Yellow, Urine Clarity Cloudy, Urine pH 7.0, Ur Specific [place] 1.010, Urine Protein 100 H, Urine Glucose (UA) Normal, Urine Ketones 15 H, Urine Occult Blood 250 H, Urine Nitrite Negative, Urine Bilirubin 1 H, Urine Urobilinogen 4 H, Ur Leukocyte Esterase 500 H, Urine RBC 5-10 SEEN, Urine WBC 10-25 SEEN, Ur Squamous Epith Cells 0 SEEN, Urine Bacteria 4+, Urine Mucus 0 SEEN 04/20/20 14:35: Ethyl Alcohol < 3.0 04/20/20 18:00: Lactic Acid Cancelled 04/20/20 19:18: COVID-19 (BEATRIZ) Not Detected 04/20/20 19:45: MRSA (PCR) Negative 04/20/20 20:00: Ammonia 28.0 04/20/20 21:15: Urine Color Yellow, Urine Clarity Cloudy, Urine pH 6.5, Ur Specific [place] 1.010, Urine Protein 100 H, Urine Glucose (UA) Normal, Urine Ketones 50 H, Urine Occult Blood 250 H, Urine Nitrite Negative, Urine Bilirubin Negative, Urine Urobilinogen 4 H, Ur Leukocyte Esterase 500 H, Urine RBC 5-10 SEEN, Urine WBC >100 SEEN, Ur Squamous Epith Cells 0-5 SEEN, Ur Transition Epith Cell 0-5 SEEN, Urine Bacteria RARE, Urine Mucus 0 SEEN 04/21/20 04:00: WBC 7.8, RBC 3.32 L, Hgb 11.2 L, Hct 32.9 L, MCV 99.1 H, MCH 33.7 H, MCHC 34.0, RDW Std Deviation 48.6 H, RDW Coeff of William 13.3, Plt Count 92 L, MPV 10.3, Immature Gran % (Auto) 0.800, Neut % (Auto) 79.4 H, Lymph % (Auto) 9.7 L, Evans % (Auto) 10.0, Eos % (Auto) 0.0, Baso % (Auto) 0.1, Absolute Neuts (auto) 6.2, Absolute Lymphs (auto) 0.76 L, Nucleated RBC % 0, Differential Comment COMMENT, Platelet Estimate MOD 04/21/20 04:00: Sodium Cancelled, Potassium Cancelled, Chloride Cancelled, Carbon Dioxide Cancelled, Anion Gap Cancelled, BUN Cancelled, Creatinine Cancelled, Estim Creat Clear Calc Cancelled, Est GFR (MDRD) Af Amer Cancelled, Est GFR (MDRD) Non-Af Cancelled, BUN/Creatinine Ratio Cancelled, Glucose Cancelled, Calcium Cancelled, Phosphorus Cancelled, Magnesium Cancelled, Total Bilirubin Cancelled, AST Cancelled, ALT Cancelled, Alkaline Phosphatase Cancelled, Total Creatine Kinase Cancelled, Total Protein Cancelled, Albumin Cancelled, Globulin Cancelled, Albumin/Globulin Ratio Cancelled 04/21/20 04:40: Sodium 136, Potassium 3.3 L, Chloride 104, Carbon Dioxide 19.0 L, Anion Gap 13, BUN 12, Creatinine 0.52 L, Estim Creat Clear Calc 168.59, Est GFR (MDRD) Af Amer 208, Est GFR (MDRD) Non-Af 172, BUN/Creatinine Ratio 23.1 H, Glucose 88, Calcium 7.1 L, Phosphorus 2.6, Magnesium 1.6, Total Bilirubin 0.70, AST 345 H, ALT 96 H, Alkaline Phosphatase 84, Total Creatine Kinase 6155 H, Total Protein 6.4, Albumin 2.1 L, Globulin 4.3 H, Albumin/Globulin Ratio 0.5 L Current Medications Albuterol Sulfate (Ventolin Aerosols) 2.5 mg INHALATION Q2H PRN PRN PRN Reason: SOB/Wheezing Bisacodyl (Dulcolax) 5 mg PO DAILY PRN PRN PRN Reason: Constipation Enoxaparin Sodium (Lovenox) 40 mg SC DAILY [facility] Potassium Chloride 10 meq/ (Sodium Chloride) 1,005 mls @ 150 mls/hr IV .Q6H42M [facility] Stop: 04/21/20 10:00 Last Infusion: 04/21/20 05:58 Dose: 150 mls/hr Documented by: Folic Acid 1 mg/ Sodium (Chloride) 50.2 mls @ 200 mls/hr IV DAILY [facility] Last Infusion: 04/20/20 20:02 Dose: Infused Documented by: Ampicillin Sodium/Sulbactam (Sodium 3 gm/ Sodium Chloride) 112 mls @ 150 mls/hr IV Q8 [facility] Last Infusion: 04/21/20 05:58 Dose: Infused Documented by: Diltiazem HCl 125 mg/ Dextrose 125 mls @ 5 mls/hr IV .Q25H PAWAN; Protocol Last Titration: 04/21/20 06:00 Dose: 5 mg/hr, 5 mls/hr Documented by: Potassium Chloride 10 meq/ (Sodium Chloride) 1,005 mls @ 150 mls/hr IV .Q6H42M PAWAN Lorazepam (Ativan) 2 mg PO Q2H PRN PRN; Protocol PRN Reason: CIWA score > 8 but <15 Lorazepam (Ativan) 2 mg PO UD PRN; Protocol PRN Reason: CIWA score >/=15. Lorazepam (Ativan) 2 mg IV Q2H PRN PRN; Protocol PRN Reason: CIWA score > 8 but <15 Last Admin: 04/21/20 03:42 Dose: 2 mg Documented by: Lorazepam (Ativan) 2 mg IV UD PRN; Protocol PRN Reason: CIWA score >/=15. Metoprolol Tartrate (Lopressor (Beta Iftikhar)) 5 mg IV Q6 [facility] Last Admin: 04/21/20 05:13 Dose: 5 mg Documented by: Morphine Sulfate () 2 mg IV Q3H PRN PRN PRN Reason: Pain Score 6-10/10 Prochlorperazine Edisylate (Compazine Iv) 5 mg IV Q4H PRN PRN PRN Reason: Breakthrough Nausea/Vomiting Quetiapine Fumarate (Seroquel) 400 mg PO BID [facility] Last Admin: 04/20/20 20:58 Dose: 400 mg Documented by: Sodium Chloride () 10 - 40 ml IV UD PRN PRN Reason: SALINE FLUSH Medical Necessity - Tobacco Use Smoking Status: Current every day smoker Tobacco Use: Cigarettes Assessment/Plan All Active Problems (Last Reviewed 04/20/20 @ 17:[address] Татьяна aGmble DO) Urinary tract infection (Acute) Hypokalemia (Acute) Elevated CPK (Acute) Alcohol withdrawal (Acute) Severe sepsis (Acute) Alcoholic hepatitis (Acute) Hyponatremia (Acute) This is a 59 years old male patient presented to the emergency room because he was found on the floor by a neighbor, was not able to get up, was hallucinating and he was found to have severe sepsis secondary to acute cystitis and probable aspiration pneumonia, found to have acute alcohol withdrawal, admitted for medical stabilization and also found to have hypokalemia/hyponatremia and elevated LFT. #1 severe sepsis: Secondary to UTI and pneumonia. Patient is on IV antibiotics. This morning, is afebrile, leukocytosis resolved. Blood and urine cultures are pending. Hemodynamically stable. Plan to continue same treatment. #2 probable right basilar aspiration pneumonia: Chest x-ray reviewed, questionable faint right basilar infiltrate likely due to aspiration. Patient is on IV Unasyn. Leukocytosis resolved, no fever this morning. Blood and urine cultures are pending. Plan to continue same treatment. #3 acute cystitis: Again, he is on IV Unasyn. Urine cultures pending. #4 acute alcohol withdrawal/questionable alcohol withdrawal seizure: He is on Ativan taper, folic acid and thiamine supplement, on Seroquel as well. He was started on IV Cardizem drip for tachycardia to maintain his heart rate around 100, blood pressure stable. Blood alcohol level was less than 3. Urine drug screen was positive for cannabinoids. COVID-19 PCR was negative. Plan to continue same treatment. #5 elevated LFTs/elevated creatinine kinase: Liver transaminases mainly elevated likely due to alcoholic hepatitis. Creatinine kinase was 2955 on admission, today it is 6155. It is trending up. Patient is already on IV fluids. Kidney function has been stable. Plan to continue IV fluids, repeat creatinine kinase tomorrow morning. #6 hyponatremia/hypokalemia: Sodium admission was 130, likely because of chronic alcoholism. Potassium on admission was 2.5. Today sodium is 136 and potassium is 3.3, improving. Patient is on IV fluids with normal saline potassium chloride. Plan to repeat BMP tomorrow morning. #7 hypertension: At this time, blood pressure stable, continue IV Cardizem drip and PRN metoprolol. #8 hyperlipidemia: Keep holding statins. #9 depression/bipolar disorder: Continue Seroquel and Ativan drip. #10 DVT prophylaxis, subcu Lovenox. This note was generated with 3VR dictation software. It may contain incorrect words, spelling, and punctuation that were not noted in checking the note before signing. Inpatient E&M: 72717 Subs Hosp L2
[2020-04-21] MEDS: LORazepam 1 MG Tablet 2 MG PO ×2 (08:30→12:21)
[2020-04-21] MEDS: QUEtiapine 100 MG Tablet 400 MG PO ×2 (08:31→21:14)
[2020-04-21] MEDS: Enoxaparin 40 MG/0.4 ML Syringe SC (08:31)
--- NOTE | 2020-04-21 18:00 | NURSING ---
Cardizen titration: 1400: Cardizem infusing at 5mg/hr, no change. 1600: Cardizem infusing at 5mg/hr, no change. 1700: Cardizem infusing at 5mg/hr, no change.
[2020-04-21] MEDS: Neomycin/Polymyxin/Dexameth 5ML OPTH.BTL 2 DRP EACH EYE (18:20)
[2020-04-22] VITALS (32 sets, daily range): BP systolic 115–170; BP diastolic 76–108; PULSE 93–110; RESP 12–23; TEMP 36.3–37.1; O2SAT 93–99
[2020-04-22] MEDS: Metoprolol Tartrate 5 MG/5 ML Vial IV ×2 (00:27→05:05)
[2020-04-22] MEDS: Neomycin/Polymyxin/Dexameth 5ML OPTH.BTL 2 DRP EACH EYE ×5 (00:27→23:35)
[2020-04-22] MEDS: 0.9% Saline Lock 10 ML Syringe IV ×2 (00:29→03:58)
[2020-04-22] MEDS: LORazepam 2 MG/ML Syringe IV ×3 (01:50→05:06)
[2020-04-22 04:08] LABS: Absolute Lymphocyte Count 0.94 X10^3/uL (0.83-4.51); Absolute Neutrophil Count 5.2 X10^3/uL (2.0-7.7); Basophil# 0.01 X10^3/uL; Basophil% 0.1 % (0-1); Eosinophil# 0.02 X10^3/uL; Eosinophils% 0.3 % (0-5); Hematocrit 33.8 % (40-54); Hemoglobin 11.1 g/dL (13.0-16.5); Lymphocyte # 0.94 X10^3/ul (4.0); Lymphocyte % 13.4 % (19-41); Mean Corp Hgb Conc 32.8 g/dL (32-36); Mean Corpuscular Hgb 33.8 pg (27.0-32.0); Mean Platelet Vol. 10.3 fl (6.2-12.0); Monocyte# 0.82 X10^3/uL; Monocyte% 11.7 % (0-10); NRBC Flagged by Analyzer 0 % (0-5); Neutrophil # 5.16 X10^3/uL (2.7-7.7); Neutrophil % 73.8 % (47-70); POSITIVE COUNT YES; Platelet Count 97 K/mm3 (150-450); RBC Distribution Width CV 14.2 % (11.6-14.6); RBC Distribution Width SD 54.2 fl (35.1-43.9); Red Blood Count 3.28 M/mm3 (4.6-6.2)
[2020-04-22 04:38] LABS: ALB/GLOB Ratio 0.4 RATIO (0.9-2.4); AST(SGOT) 413 U/L (15-37); Alanine Aminotransfer ALT/SGPT 141 U/L (16-61); Alkaline Phosphatase 83 U/L (45-117); Anion Gap 9 (5-15); BUN 10 mg/dL (7-18); BUN/Creat Ratio 19.3 RATIO (10-20); CPK Total, Creatine Kinase 4062 U/L (39-308); Calcium,Total 7.6 mg/dL (8.5-10.1); Chloride 108 mmol/L (98-107); Creatinine, Serum 0.52 mg/dL (0.70-1.30); EST Glomerular Filtration Rate 172 mL/min (>60); Est Glom Filt Rate - Afr Amer 208 mL/min (>60); Estimated Creatinine Clearance 168.59 ml/min; Globulin 4.6 g/dL (2.2-4.2); Glucose 87 mg/dL (74-106); Potassium 3.8 mmol/L (3.5-5.1); Protein, Total 6.6 g/dL (6.4-8.2); Sodium Level 141 mmol/L (136-145)
[2020-04-22] MEDS: Phenobarbital Sodium 130 MG/ML Vial 100 MG IV (05:43)
--- NOTE | 2020-04-22 06:18 | PCM.CON.CC ---
Reason for Consult Date of Consultation: 04/22/20 Reason for Consultation: Acute alcohol withdrawal History of Present Illness: The patient is a 59-year-old male, with a history as outlined below, who presented to the emergency department on April 20 with complaints of generalized weakness after being found down by a neighbor. History pertinent to the patient's hospitalization was obtained primarily via chart review, as the patient is far too somnolent to provide any information and there is no family available at the bedside. The patient does have a longstanding history of alcohol and tobacco dependency, bipolar disorder and apparent seizures precipitated by alcohol withdrawal in the past. On presentation to the emergency department, the patient was noted to be afebrile and hemodynamically stable. However, he was tachycardic and tachypneic. Laboratory evaluation revealed a mildly elevated white blood cell count to 12,000. Coagulation profile was within normal limits. Chemistry profile was notable for a sodium of 130, chloride of 94 and potassium of 2.5. Lactate was elevated to 2.5. AST and ALT were increased to 233 and 76, respectively. Total CK was elevated to 2955. Urine analysis was negative for nitrites, positive for leukocyte esterase and 4+ urine bacteria. Toxicology screen was positive for cannabinoids. Alcohol level was negative. Coronavirus PCR was negative. CT head revealed no acute intracranial findings. CT cervical spine revealed no fracture or dislocation. Chest x-ray revealed a right basilar linear airspace opacity. The patient was placed on supplemental IV fluids and antibiotics. He was subsequently admitted to the medical intensive care unit for further management. Over the last 24 hours, the patient's alcohol withdrawal symptoms have been managed with phenobarbital and Ativan. However, the patient has had persistently elevated CIWA scores. In addition, the patient was placed on a Cardizem infusion to treat his underlying tachycardia. Past Medical History Past Medical History (Chronic Problems): Chronic Problems (Last Reviewed 04/20/20 @ 17:[address] Татьяна Gamble DO) Hypertension (Chronic) Hyperlipidemia (Chronic) Bipolar disorder (Chronic) Tobacco dependence (Chronic) EtOH dependence (Chronic) Medical History: Medical History (Last Reviewed 04/20/20 @ 17:[address] Татьяна Gamble DO) Anxiety F41.9 Bipolar disorder F31.9 Seizure R56.9 Allergies lisinopril Allergy (Verified 04/20/20 12:54) Angioedema peanut Allergy (Verified 04/20/20 12:54) Hives Home Medications: Ambulatory Orders Medication Instructions Recorded Fluoxetine [Prozac] 60 mg PO DAILY 08/06/15 Quetiapine Fumarate [Quetiapine 800 mg PO QHS 01/05/20 Fumarate ER] Atorvastatin Calcium [Lipitor] 40 mg PO DAILY 03/26/20 Metoprolol Succinate [Toprol Xl] 50 mg PO 03/26/20 Surgical History: - - Pins and plates in left forearm Psychiatric History: Anxiety, Bipolar Lives: Alone, - - he has 2 dogs that live with him Smoking Status: Current every day smoker Tobacco Use: Cigarettes Alcohol: Heavy Drugs: None - *Family History Maternal Family History: Family History (Last Reviewed 04/20/20 @ 17:[address] Татьяна Gamble DO) Father Myocardial infarction Mother Stomach cancer Paternal Family History: Family History (Last Reviewed 04/20/20 @ 17:[address] Татьяна Gamble DO) Father Myocardial infarction Mother Stomach cancer Review of Systems Unable to obtain accurate/complete ROS d/t: Due to patient's somnolence Patient Problems: Active and Suspected Problems (Last Reviewed 04/20/20 @ 17:[address] Татьяна Gamble DO) Urinary tract infection (Acute) Hypokalemia (Acute) Elevated CPK (Acute) Alcohol withdrawal (Acute) Severe sepsis (Acute) due to PNA and UTI Alcoholic hepatitis (Acute) Hyponatremia (Acute) Seizure (Suspected) Objective: The patient's most recent lab work, culture data and imaging studies have all been personally reviewed. Preliminary blood culture from April 20 was positive for gram-positive cocci. Urine culture is pending. - Physical Exam Vitals/I&O's: Vital Signs Temp Pulse Resp BP Pulse Ox 98.1 F 104 H 20 H 151/103 H 96 04/22/20 04:00 04/22/20 06:00 04/22/20 06:00 04/22/20 06:00 04/22/20 06:00 Oxygen Flow Rate (L/min) 2 Oxygen Delivery Method Nasal Cannula Weight: 192 lb 14.472 oz Body Mass Index (BMI) 24.5 Intake and Output for Last 24 Hours 04/20/20 04/21/20 04/22/20 23:59 23:59 23:59 Intake Total 3204.78 / 3359.78 3188.20 / 3188.20 Output Total 150 / 150 0 / 0 0 / 0 Balance 3054.78 / 3209.78 3188.20 / 3188.20 General: No apparent distress, Lethargic HEENT: Atraumatic, Normocephalic Oral: Dry Mucosa Neck: Supple, No Nodes, Trachea Midline Lungs: No wheeze, No rales, Diminished, Rhonchi Cardiovascular: Normal S1, Normal S2, No murmurs, Tachycardic Abdomen: Bowel Sounds Present, Soft, Non Tender Extremities: No clubbing, No cyanosis, No edema Skin: No breakdown Musculoskeletal: No Tenderness to Palpation of Joints or Extremities Lymphatic: No Cervical, Supraclavicular, or Inguinal Adenopathy Neurological: - - Patient is quite somnolent. He does not respond to verbal stimulation. The patient is tremulous. Psych/Mental Status: Flat Affect Labs (Last 48 Hours) 04/20/20 04/20/20 04/20/20 12:50 12:50 12:50 WBC 12.3 H RBC 3.91 L Hgb 13.4 Hct 38.5 L MCV 98.5 H MCH 34.3 H MCHC 34.8 RDW Std Deviation 47.3 H RDW Coeff of William 13.2 Plt Count 115 L MPV 10.0 Immature Gran % (Auto) 1.100 H Neut % (Auto) 87.3 H Lymph % (Auto) 4.3 L [place] % (Auto) 7.1 Eos % (Auto) 0.0 Baso % (Auto) 0.2 Absolute Neuts (auto) 10.8 H Absolute Lymphs (auto) 0.53 L Nucleated RBC % 0 Differential Comment SCANNED Toxic Vacuolation RARE Platelet Estimate SLT DEC PT 14.3 INR 1.2 APTT 35.9 Sodium 130 L Potassium 2.5 L* Chloride 94 L Carbon Dioxide 23.0 Anion Gap 13 BUN 12 Creatinine 1.06 Estim Creat Clear Calc 82.71 Est GFR (MDRD) Af Amer 91 Est GFR (MDRD) Non-Af 75 BUN/Creatinine Ratio 11.3 Glucose 146 H Hemoglobin A1c Lactic Acid Calcium 8.4 L Phosphorus Magnesium Total Bilirubin 0.70 AST 233 H ALT 76 H Alkaline Phosphatase 123 H Ammonia Total Creatine Kinase 2955 H Troponin I < 0.015 Total Protein 8.2 Albumin 2.9 L Globulin 5.3 H Albumin/Globulin Ratio 0.5 L Urine Color Urine Clarity Urine pH Ur Specific [place] Urine Protein Urine Glucose (UA) Urine Ketones Urine Occult Blood Urine Nitrite Urine Bilirubin Urine Urobilinogen Ur Leukocyte Esterase Urine RBC Urine WBC Ur Squamous Epith Cells Ur Transition Epith Cell Urine Bacteria Urine Mucus Urine Opiates Screen Urine Methadone Screen Ur Barbiturates Screen Ur Phencyclidine Scrn Ur Amphetamines Screen U Methamphetamin-MDMA U Benzodiazepines Scrn Urine Cocaine Screen U Cannabinoids Screen Ur Drug Screen Comment Ethyl Alcohol COVID-19 (BEATRIZ) MRSA (PCR) 04/20/20 04/20/20 04/20/20 12:50 13:22 13:30 WBC RBC Hgb Hct MCV MCH MCHC RDW Std Deviation RDW Coeff of William Plt Count MPV Immature Gran % (Auto) Neut % (Auto) Lymph % (Auto) [place] % (Auto) Eos % (Auto) Baso % (Auto) Absolute Neuts (auto) Absolute Lymphs (auto) Nucleated RBC % Differential Comment Toxic Vacuolation Platelet Estimate PT INR APTT Sodium Potassium Chloride Carbon Dioxide Anion Gap BUN Creatinine Estim Creat Clear Calc Est GFR (MDRD) Af Amer Est GFR (MDRD) Non-Af BUN/Creatinine Ratio Glucose Hemoglobin A1c 6.0 H Lactic Acid 2.5 H* Calcium Phosphorus Magnesium 1.7 Total Bilirubin AST ALT Alkaline Phosphatase Ammonia Total Creatine Kinase Troponin I Total Protein Albumin Globulin Albumin/Globulin Ratio Urine Color Urine Clarity Urine pH Ur Specific [place] Urine Protein Urine Glucose (UA) Urine Ketones Urine Occult Blood Urine Nitrite Urine Bilirubin Urine Urobilinogen Ur Leukocyte Esterase Urine RBC Urine WBC Ur Squamous Epith Cells Ur Transition Epith Cell Urine Bacteria Urine Mucus Urine Opiates Screen Urine Methadone Screen Ur Barbiturates Screen Ur Phencyclidine Scrn Ur Amphetamines Screen U Methamphetamin-MDMA U Benzodiazepines Scrn Urine Cocaine Screen U Cannabinoids Screen Ur Drug Screen Comment Ethyl Alcohol COVID-19 (BEATRIZ) MRSA (PCR) 04/20/20 04/20/20 04/20/20 13:30 13:30 13:50 WBC RBC Hgb Hct MCV MCH MCHC RDW Std Deviation RDW Coeff of [place] Plt Count MPV Immature Gran % (Auto) Neut % (Auto) Lymph % (Auto) [place] % (Auto) Eos % (Auto) Baso % (Auto) Absolute Neuts (auto) Absolute Lymphs (auto) Nucleated RBC % Differential Comment Toxic Vacuolation Platelet Estimate PT INR APTT Sodium Potassium Chloride Carbon Dioxide Anion Gap BUN Creatinine Estim Creat Clear Calc Est GFR (MDRD) Af Amer Est GFR (MDRD) Non-Af BUN/Creatinine Ratio Glucose Hemoglobin A1c Lactic Acid Calcium Phosphorus 2.8 Magnesium Total Bilirubin AST ALT Alkaline Phosphatase Ammonia Total Creatine Kinase Troponin I Total Protein Albumin Globulin Albumin/Globulin Ratio Urine Color Yellow Urine Clarity Cloudy Urine pH 7.0 Ur Specific [place] 1.010 Urine Protein 100 H Urine Glucose (UA) Normal Urine Ketones 15 H Urine Occult Blood 250 H Urine Nitrite Negative Urine Bilirubin 1 H Urine Urobilinogen 4 H Ur Leukocyte Esterase 500 H Urine RBC 5-10 SEEN Urine WBC 10-25 SEEN Ur Squamous Epith Cells 0 SEEN Ur Transition Epith Cell Urine Bacteria 4+ Urine Mucus 0 SEEN Urine Opiates Screen NEGATIVE Urine Methadone Screen NEGATIVE Ur Barbiturates Screen NEGATIVE Ur Phencyclidine Scrn NEGATIVE Ur Amphetamines Screen NEGATIVE U Methamphetamin-MDMA NEGATIVE U Benzodiazepines Scrn NEGATIVE Urine Cocaine Screen NEGATIVE U Cannabinoids Screen POSITIVE H Ur Drug Screen Comment Ethyl Alcohol COVID-19 (BEATRIZ) MRSA (PCR) 04/20/20 04/20/20 04/20/20 14:35 18:00 19:18 WBC RBC Hgb Hct MCV MCH MCHC RDW Std Deviation RDW Coeff of [place] Plt Count MPV Immature Gran % (Auto) Neut % (Auto) Lymph % (Auto) [place] % (Auto) Eos % (Auto) Baso % (Auto) Absolute Neuts (auto) Absolute Lymphs (auto) Nucleated RBC % Differential Comment Toxic Vacuolation Platelet Estimate PT INR APTT Sodium Potassium Chloride Carbon Dioxide Anion Gap BUN Creatinine Estim Creat Clear Calc Est GFR (MDRD) Af Amer Est GFR (MDRD) Non-Af BUN/Creatinine Ratio Glucose Hemoglobin A1c Lactic Acid Cancelled Calcium Phosphorus Magnesium Total Bilirubin AST ALT Alkaline Phosphatase Ammonia Total Creatine Kinase Troponin I Total Protein Albumin Globulin Albumin/Globulin Ratio Urine Color Urine Clarity Urine pH Ur Specific [place] Urine Protein Urine Glucose (UA) Urine Ketones Urine Occult Blood Urine Nitrite Urine Bilirubin Urine Urobilinogen Ur Leukocyte Esterase Urine RBC Urine WBC Ur Squamous Epith Cells Ur Transition Epith Cell Urine Bacteria Urine Mucus Urine Opiates Screen Urine Methadone Screen Ur Barbiturates Screen Ur Phencyclidine Scrn Ur Amphetamines Screen U Methamphetamin-MDMA U Benzodiazepines Scrn Urine Cocaine Screen U Cannabinoids Screen Ur Drug Screen Comment Ethyl Alcohol < 3.0 COVID-19 (BEATRIZ) Not Detected MRSA (PCR) 04/20/20 04/20/20 04/20/20 19:45 20:00 21:15 WBC RBC Hgb Hct MCV MCH MCHC RDW Std Deviation RDW Coeff of [place] Plt Count MPV Immature Gran % (Auto) Neut % (Auto) Lymph % (Auto) [place] % (Auto) Eos % (Auto) Baso % (Auto) Absolute Neuts (auto) Absolute Lymphs (auto) Nucleated RBC % Differential Comment Toxic Vacuolation Platelet Estimate PT INR APTT Sodium Potassium Chloride Carbon Dioxide Anion Gap BUN Creatinine Estim Creat Clear Calc Est GFR (MDRD) Af Amer Est GFR (MDRD) Non-Af BUN/Creatinine Ratio Glucose Hemoglobin A1c Lactic Acid Calcium Phosphorus Magnesium Total Bilirubin AST ALT Alkaline Phosphatase Ammonia 28.0 Total Creatine Kinase Troponin I Total Protein Albumin Globulin Albumin/Globulin Ratio Urine Color Yellow Urine Clarity Cloudy Urine pH 6.5 Ur Specific [place] 1.010 Urine Protein 100 H Urine Glucose (UA) Normal Urine Ketones 50 H Urine Occult Blood 250 H Urine Nitrite Negative Urine Bilirubin Negative Urine Urobilinogen 4 H Ur Leukocyte Esterase 500 H Urine RBC 5-10 SEEN Urine WBC >100 SEEN Ur Squamous Epith Cells 0-5 SEEN Ur Transition Epith Cell 0-5 SEEN Urine Bacteria RARE Urine Mucus 0 SEEN Urine Opiates Screen Urine Methadone Screen Ur Barbiturates Screen Ur Phencyclidine Scrn Ur Amphetamines Screen U Methamphetamin-MDMA U Benzodiazepines Scrn Urine Cocaine Screen U Cannabinoids Screen Ur Drug Screen Comment Ethyl Alcohol COVID-19 (BEATRIZ) MRSA (PCR) Negative 04/21/20 04/21/20 04/21/20 04:00 04:00 04:40 WBC 7.8 RBC 3.32 L Hgb 11.2 L Hct 32.9 L MCV 99.1 H MCH 33.7 H MCHC 34.0 RDW Std Deviation 48.6 H RDW Coeff of [place] 13.3 Plt Count 92 L MPV 10.3 Immature Gran % (Auto) 0.800 Neut % (Auto) 79.4 H Lymph % (Auto) 9.7 L [place] % (Auto) 10.0 Eos % (Auto) 0.0 Baso % (Auto) 0.1 Absolute Neuts (auto) 6.2 Absolute Lymphs (auto) 0.76 L Nucleated RBC % 0 Differential Comment COMMENT Toxic Vacuolation Platelet Estimate MOD DEC PT INR APTT Sodium Cancelled 136 Potassium Cancelled 3.3 L Chloride Cancelled 104 Carbon Dioxide Cancelled 19.0 L Anion Gap Cancelled 13 BUN Cancelled 12 Creatinine Cancelled 0.52 L Estim Creat Clear Calc Cancelled 168.59 Est GFR (MDRD) Af Amer Cancelled 208 Est GFR (MDRD) Non-Af Cancelled 172 BUN/Creatinine Ratio Cancelled 23.1 H Glucose Cancelled 88 Hemoglobin A1c Lactic Acid Calcium Cancelled 7.1 L Phosphorus Cancelled 2.6 Magnesium Cancelled 1.6 Total Bilirubin Cancelled 0.70 AST Cancelled 345 H ALT Cancelled 96 H Alkaline Phosphatase Cancelled 84 Ammonia Total Creatine Kinase Cancelled 6155 H Troponin I Total Protein Cancelled 6.4 Albumin Cancelled 2.1 L Globulin Cancelled 4.3 H Albumin/Globulin Ratio Cancelled 0.5 L Urine Color Urine Clarity Urine pH Ur Specific [place] Urine Protein Urine Glucose (UA) Urine Ketones Urine Occult Blood Urine Nitrite Urine Bilirubin Urine Urobilinogen Ur Leukocyte Esterase Urine RBC Urine WBC Ur Squamous Epith Cells Ur Transition Epith Cell Urine Bacteria Urine Mucus Urine Opiates Screen Urine Methadone Screen Ur Barbiturates Screen Ur Phencyclidine Scrn Ur Amphetamines Screen U Methamphetamin-MDMA U Benzodiazepines Scrn Urine Cocaine Screen U Cannabinoids Screen Ur Drug Screen Comment Ethyl Alcohol COVID-19 (BEATRIZ) MRSA (PCR) 04/22/20 04/22/20 04:00 04:00 WBC 7.0 RBC 3.28 L Hgb 11.1 L Hct 33.8 L MCV 103.0 H MCH 33.8 H MCHC 32.8 RDW Std Deviation 54.2 H RDW Coeff of [place] 14.2 Plt Count 97 L MPV 10.3 Immature Gran % (Auto) 0.700 Neut % (Auto) 73.8 H Lymph % (Auto) 13.4 L [place] % (Auto) 11.7 H Eos % (Auto) 0.3 Baso % (Auto) 0.1 Absolute Neuts (auto) 5.2 Absolute Lymphs (auto) 0.94 Nucleated RBC % 0 Differential Comment Toxic Vacuolation Platelet Estimate PT INR APTT Sodium 141 Potassium 3.8 Chloride 108 H Carbon Dioxide 24.0 Anion Gap 9 BUN 10 Creatinine 0.52 L Estim Creat Clear Calc 168.59 Est GFR (MDRD) Af Amer 208 Est GFR (MDRD) Non-Af 172 BUN/Creatinine Ratio 19.3 Glucose 87 Hemoglobin A1c Lactic Acid Calcium 7.6 L Phosphorus Magnesium Total Bilirubin 0.70 AST 413 H ALT 141 H Alkaline Phosphatase 83 Ammonia Total Creatine Kinase 4062 H Troponin I Total Protein 6.6 Albumin 2.0 L Globulin 4.6 H Albumin/Globulin Ratio 0.4 L Urine Color Urine Clarity Urine pH Ur Specific [place] Urine Protein Urine Glucose (UA) Urine Ketones Urine Occult Blood Urine Nitrite Urine Bilirubin Urine Urobilinogen Ur Leukocyte Esterase Urine RBC Urine WBC Ur Squamous Epith Cells Ur Transition Epith Cell Urine Bacteria Urine Mucus Urine Opiates Screen Urine Methadone Screen Ur Barbiturates Screen Ur Phencyclidine Scrn Ur Amphetamines Screen U Methamphetamin-MDMA U Benzodiazepines Scrn Urine Cocaine Screen U Cannabinoids Screen Ur Drug Screen Comment Ethyl Alcohol COVID-19 (BEATRIZ) MRSA (PCR) Microbiology 04/20/20 13:20 Blood Culture (Wb) - Anticubital Right Blood Culture - Preliminary 04/20/20 19:45 Biopsy - Eye Gram Stain - Final 04/20/20 19:45 Biopsy - Eye Eye Culture - Preliminary Alpha hemolytic organism Clinical Impression(s) from Imaging Studies Brain CT 04/20/20 13:08 IMPRESSION: Stable chronic ischemic and atrophic changes. No acute intracranial abnormality. Electronically Signed: Hever Bear, at 15:24 EDT Tel , Service support , Cervical Spine CT 04/20/20 13:10 IMPRESSION: No fracture or dislocation in the cervical spine. Stable mild degenerative change. Straightening of the normal cervical lordosis which may be due to paraspinal muscle spasm or may be positional in nature. Electronically Signed: Hever Bear, at 15:29 EDT Tel , Service support , Chest X-Ray 04/20/20 15:00 IMPRESSION: Linear opacity in the right lung base which likely represents atelectasis. Otherwise, clear lungs. Electronically Signed: Hever Bear, at 15:24 EDT Tel , Service support , Current Medications Albuterol Sulfate (Ventolin Aerosols) 2.5 mg INHALATION Q2H PRN PRN PRN Reason: SOB/Wheezing Bisacodyl (Dulcolax) 5 mg PO DAILY PRN PRN PRN Reason: Constipation Enoxaparin Sodium (Lovenox) 40 mg SC DAILY [facility] Last Admin: 04/21/20 08:31 Dose: 40 mg Documented by: Folic Acid 1 mg/ Sodium (Chloride) 50.2 mls @ 200 mls/hr IV DAILY [facility] Last Infusion: 04/21/20 09:39 Dose: Infused Documented by: Ampicillin Sodium/Sulbactam (Sodium 3 gm/ Sodium Chloride) 112 mls @ 150 mls/hr IV Q8 [facility] Last Infusion: 04/22/20 05:59 Dose: Infused Documented by: Diltiazem HCl 125 mg/ Dextrose 125 mls @ 5 mls/hr IV .Q25H [facility]; Protocol Last Titration: 04/22/20 05:59 Dose: 5 mg/hr, 5 mls/hr Documented by: Potassium Chloride 10 meq/ (Sodium Chloride) 1,005 mls @ 150 mls/hr IV .Q6H42M [facility] Last Infusion: 04/22/20 06:00 Dose: 150 mls/hr Documented by: Thiamine HCl 200 mg/ Sodium (Chloride) 52 mls @ 200 mls/hr IV DAILY [facility] Last Infusion: 04/21/20 10:15 Dose: Infused Documented by: Lorazepam (Ativan) 2 mg PO Q2H PRN PRN; Protocol PRN Reason: CIWA score > 8 but <15 Last Admin: 04/21/20 12:21 Dose: 2 mg Documented by: Lorazepam (Ativan) 2 mg PO UD PRN; Protocol PRN Reason: CIWA score >/=15. Lorazepam (Ativan) 2 mg IV Q2H PRN PRN; Protocol PRN Reason: CIWA score > 8 but <15 Last Admin: 04/22/20 03:52 Dose: 2 mg Documented by: Lorazepam (Ativan) 2 mg IV UD PRN; Protocol PRN Reason: CIWA score >/=15. Last Admin: 04/22/20 05:06 Dose: 2 mg Documented by: Metoprolol Tartrate (Lopressor (Beta Iftikhar)) 5 mg IV Q6 [facility] Last Admin: 04/22/20 05:05 Dose: 5 mg Documented by: Morphine Sulfate () 2 mg IV Q3H PRN PRN PRN Reason: Pain Score 6-10/10 Neomycin/Polymyxin/Dexamethasone (Maxitrol) 2 drop EACH EYE Q6 [facility] Last Admin: 04/22/20 05:09 Dose: 2 drop Documented by: Prochlorperazine Edisylate (Compazine Iv) 5 mg IV Q4H PRN PRN PRN Reason: Breakthrough Nausea/Vomiting Quetiapine Fumarate (Seroquel) 400 mg PO BID [facility] Last Admin: 04/21/20 21:14 Dose: 400 mg Documented by: Sodium Chloride () 10 - 40 ml IV UD PRN PRN Reason: SALINE FLUSH Last Admin: 04/22/20 03:58 Dose: 20 ml Documented by: Assessment/Plan Active and Suspected Problems (Last Reviewed 04/20/20 @ 17:[address] Татьяна Gamble, DO) Urinary tract infection (Acute) Hypokalemia (Acute) Elevated CPK (Acute) Alcohol withdrawal (Acute) Severe sepsis (Acute) due to PNA and UTI Alcoholic hepatitis (Acute) Hyponatremia (Acute) Seizure (Suspected) RECOMMENDATIONS: 1. Discontinue phenobarbital and scheduled Ativan. Start Precedex for alcohol withdrawal symptoms. 2. Continue thiamine and folate repletion. 3. Continue antimicrobials, pending infectious work-up. 4. Continue supplemental IV fluid hydration. IMPRESSIONS: 1. Acute alcohol withdrawal The patient was initially managed with phenobarbital and Ativan but continued to have high CIWA scores. Therefore, the aforementioned medications will be discontinued and the patient will instead be transitioned to Precedex for symptomatic control of his alcohol withdrawal. Thiamine and folate will be continued. Wean Precedex as tolerated. 2. Severe sepsis Clinical concern for right basilar pneumonia versus cystitis as potential sources of infection. The patient will be continued on empiric antimicrobials, while awaiting infectious work-up. He remains hemodynamically stable. 3. Elevated liver enzymes/CK Likely secondary to alcoholic hepatitis and immobility after being found down. Continue gentle IV fluid hydration. Continue to monitor liver function and CK levels. 4. Hypertension/hyperlipidemia/depression/bipolar disorder Complicates care, management, recovery and prognosis. Continue home medications as indicated. Physical therapy to evaluate the patient once medically stabilized. Patient to remain n.p.o. for now. This note was generated with [employer] dictation software. It may contain incorrect words, spelling, and punctuation that were not noted in checking the note before signing. Inpatient E&M: 24602 Init Hosp L3
--- NOTE | 2020-04-22 08:43 | PN_ITS ---
Patient Problems: Active and Suspected Problems (Last Reviewed 04/20/20 @ 17:[address] Татьяна Gamble, DO) Urinary tract infection (Acute) Hypokalemia (Acute) Elevated CPK (Acute) Alcohol withdrawal (Acute) Severe sepsis (Acute) due to PNA and UTI Alcoholic hepatitis (Acute) Hyponatremia (Acute) Seizure (Suspected) Subjective: Chief complaint: Follow-up after admission for severe sepsis secondary to acute cystitis, probable aspiration pneumonia, acute kidney injury, acute alcohol withdrawal with questionable alcohol withdrawal seizure. Patient seen and examined. Apparently overnight, patient become more agitated, tremors, restless. He was given dose of phenobarbital which did not work and he was started on Precedex drip. At this time, he is on IV Precedex drip. He is very sleepy, lethargic, difficult to arouse. He remained tremulous. He is afebrile, heart rate has been around 100, blood pressure slightly elevated, pulse ox is 97% on 2 L. - Physical Exam Vitals/I&O's: Vital Signs Temp Pulse Resp BP Pulse Ox 97.3 F L 106 H 16 159/97 H 97 04/22/20 08:00 04/22/20 08:00 04/22/20 08:00 04/22/20 08:00 04/22/20 08:00 Oxygen Flow Rate (L/min) 2 Oxygen Delivery Method Nasal Cannula Weight: 192 lb 14.472 oz Body Mass Index (BMI) 24.5 Intake and Output for Last 24 Hours 04/20/20 04/21/20 04/22/20 23:59 23:59 23:59 Intake Total 3204.78 / 3359.78 3188.20 / 3188.20 2246.86 / 2246.86 Output Total 150 / 150 0 / 0 0 / 0 Balance 3054.78 / 3209.78 3188.20 / 3188.20 2246.86 / 2246.86 General: - - Stable, sedated, lethargic. Body tremors. HEENT: Atraumatic, PERRLA, EOMI, Normocephalic Oral: Moist Mucosa, No Gingival or Mucosal Lesions/ Ulcerations Neck: Supple, No JVD, Negative Carotid Bruits, Trachea Midline, Thyroid Normal Size and Texture Lungs: No wheeze, No rales, Diminished, Rhonchi, - - Decreased breath sounds bilateral. Cardiovascular: Regular rate, Regular Rhythm, Normal S1, Normal S2, PMI Normal, Tachycardic Abdomen: Bowel Sounds Present, Soft, Non Tender, Non-Distended, No Hepato- splenomegaly Extremities: No clubbing, No cyanosis, No edema Skin: No rashes, No breakdown Lymphatic: No Cervical, Supraclavicular, or Inguinal Adenopathy Neurological: - - Body tremors, unable to assess because patient is sedated. Psych/Mental Status: - - Unable to assess, patient is on IV Precedex drip. Microbiology Past 72 Hours 04/20/20 19:45 Biopsy - Eye Gram Stain - Final 04/20/20 19:45 Biopsy - Eye Eye Culture - Preliminary Streptococcus pneumoniae Staphylococcus aureus GNR lactose burner shaft 04/20/20 21:15 Urine, Clean Catch Urine Culture - Preliminary Culture exhibits no growth. 04/20/20 13:50 Urine, Clean Catch Urine Culture - Final Culture exhibits no growth. 04/20/20 13:20 Blood Culture (Wb) - Anticubital Right Blood Culture - Preliminary Laboratory Results 04/22/20 04:00: WBC 7.0, RBC 3.28 L, Hgb 11.1 L, Hct 33.8 L, MCV 103.0 H, MCH 33.8 H, MCHC 32.8, RDW Std Deviation 54.2 H, RDW Coeff of William 14.2, Plt Count 97 L, MPV 10.3, Immature Gran % (Auto) 0.700, Neut % (Auto) 73.8 H, Lymph % (Auto) 13.4 L, [place] % (Auto) 11.7 H, Eos % (Auto) 0.3, Baso % (Auto) 0.1, Absolute Neuts (auto) 5.2, Absolute Lymphs (auto) 0.94, Nucleated RBC % 0 04/22/20 04:00: Sodium 141, Potassium 3.8, Chloride 108 H, Carbon Dioxide 24.0, Anion Gap 9, BUN 10, Creatinine 0.52 L, Estim Creat Clear Calc 168.59, Est GFR (MDRD) Af Amer 208, Est GFR (MDRD) Non-Af 172, BUN/Creatinine Ratio 19.3, Glucose 87, Calcium 7.6 L, Total Bilirubin 0.70, AST 413 H, ALT 141 H, Alkaline Phosphatase 83, Total Creatine Kinase 4062 H, Total Protein 6.6, Albumin 2.0 L, Globulin 4.6 H, Albumin/Globulin Ratio 0.4 L Current Medications Albuterol Sulfate (Ventolin Aerosols) 2.5 mg INHALATION Q2H PRN PRN PRN Reason: SOB/Wheezing Bisacodyl (Dulcolax) 5 mg PO DAILY PRN PRN PRN Reason: Constipation Enoxaparin Sodium (Lovenox) 40 mg SC DAILY [facility] Last Admin: 04/21/20 08:31 Dose: 40 mg Documented by: Folic Acid 1 mg/ Sodium (Chloride) 50.2 mls @ 200 mls/hr IV DAILY [facility] Last Infusion: 04/21/20 09:39 Dose: Infused Documented by: Ampicillin Sodium/Sulbactam (Sodium 3 gm/ Sodium Chloride) 112 mls @ 150 mls/hr IV Q8 [facility] Last Infusion: 04/22/20 05:59 Dose: Infused Documented by: Potassium Chloride 10 meq/ (Sodium Chloride) 1,005 mls @ 150 mls/hr IV .Q6H42M [facility] Last Admin: 04/22/20 07:31 Dose: 150 mls/hr Documented by: Thiamine HCl 200 mg/ Sodium (Chloride) 52 mls @ 200 mls/hr IV DAILY [facility] Last Infusion: 04/21/20 10:15 Dose: Infused Documented by: Dexmedetomidine HCl 400 mcg/ (Sodium Chloride) 100 mls @ 10.938 mls/hr CONT INF .Q9H9M [facility]; Protocol Last Titration: 04/22/20 08:15 Dose: 0.6 mcg/kg/hr, 13.1 mls/hr Documented by: Vancomycin IV Pharmacy to Dose (1 ea/ Sodium Chloride) 500 mls @ 250 mls/hr IV X1 PRN; Protocol PRN Reason: Rx to Dose Vancomycin HCl 2,000 mg/ (Sodium Chloride) 540 mls @ 250 mls/hr IV X1 ONE Stop: 04/22/20 09:39 Last Admin: 04/22/20 08:10 Dose: 250 mls/hr Documented by: Lorazepam (Ativan) 2 mg PO Q2H PRN PRN; Protocol PRN Reason: CIWA score > 8 but <15 Last Admin: 04/21/20 12:21 Dose: 2 mg Documented by: Lorazepam (Ativan) 2 mg PO UD PRN; Protocol PRN Reason: CIWA score >/=15. Lorazepam (Ativan) 2 mg IV Q2H PRN PRN; Protocol PRN Reason: CIWA score > 8 but <15 Last Admin: 04/22/20 03:52 Dose: 2 mg Documented by: Lorazepam (Ativan) 2 mg IV UD PRN; Protocol PRN Reason: CIWA score >/=15. Last Admin: 04/22/20 05:06 Dose: 2 mg Documented by: Neomycin/Polymyxin/Dexamethasone (Maxitrol) 2 drop EACH EYE Q6 [facility] Last Admin: 04/22/20 05:09 Dose: 2 drop Documented by: Prochlorperazine Edisylate (Compazine Iv) 5 mg IV Q4H PRN PRN PRN Reason: Breakthrough Nausea/Vomiting Sodium Chloride () 10 - 40 ml IV UD PRN PRN Reason: SALINE FLUSH Last Admin: 04/22/20 03:58 Dose: 20 ml Documented by: Medical Necessity - Tobacco Use Smoking Status: Current every day smoker Tobacco Use: Cigarettes Assessment/Plan All Active Problems (Last Reviewed 04/20/20 @ 17:[address] Татьяна Gamble, DO) Urinary tract infection (Acute) Hypokalemia (Acute) Elevated CPK (Acute) Alcohol withdrawal (Acute) Severe sepsis (Acute) Alcoholic hepatitis (Acute) Hyponatremia (Acute) This is a 59 years old male patient presented to the emergency room because he was found on the floor by a neighbor, was not able to get up, was hallucinating and he was found to have severe sepsis secondary to acute cystitis and probable aspiration pneumonia, found to have acute alcohol withdrawal, admitted for medical stabilization and also found to have hypokalemia/hyponatremia and elevated LFT. #1 severe sepsis: Secondary to UTI and pneumonia. Patient is on IV Unasyn and vancomycin. This morning, is afebrile, leukocytosis resolved. Urine culture showed no growth. Blood culture revealed gram-positive cocci in 1 bottle. Plan to continue IV vancomycin and Unasyn. #2 probable right basilar aspiration pneumonia: He is on IV vancomycin and Unasyn as above. Chest x-ray reviewed, questionable faint right basilar infiltrate likely due to aspiration. He has been afebrile, leukocytosis resolved. Blood culture was positive as above. Plan as above. #3 acute cystitis: Again, he is on IV Unasyn. Urine culture showed no growth. #4 Gram-positive bacteremia: Probable source is the pneumonia. 1 bottle of blood culture revealed gram-positive cocci, final is pending. He is already on IV vancomycin and Unasyn. Plan to continue same treatment. #4 acute alcohol withdrawal/questionable alcohol withdrawal seizure: Overnight, patient became more agitated, restless and tremulous. He was given 1 dose of phenobarbital which did not help. He was started on Precedex drip. Currently, he is on Precedex drip as well as thiamine and folic acid. IV Cardizem discontinued. Equity Manager consulted. Blood alcohol level was less than 3. Urine drug screen was positive for cannabinoids. COVID-19 PCR was negative. Plan to continue same treatment. #5 elevated LFTs/elevated creatinine kinase: Liver transaminases mainly elevated likely due to alcoholic hepatitis. Repeat creatinine kinase was 4062 which is coming down. Kidney function has been stable. IV fluids changed to D5 normal saline with KCl at 75 cc/h. #6 hyponatremia/hypokalemia: Both sodium and potassium was replaced and corrected. #7 bilateral conjunctivitis: Started on Maxitrol eyedrops. Culture from the right eye revealed strep pneumoniae, staph aureus and gram-negative rods, final is pending. #8 hypertension: At this time, blood pressure slightly elevated. #9 hyperlipidemia: Keep holding statins. #10 depression/bipolar disorder: Hold Seroquel, discontinue Ativan. #11 DVT prophylaxis, subcu Lovenox. This note was generated with [employer] dictation software. It may contain incorrect words, spelling, and punctuation that were not noted in checking the note before signing. Inpatient E&M: 32902 Subs Hosp L2
--- NOTE | 2020-04-22 09:16 | PHA.PHARE_ITS ---
Consult Pharmacy has been consulted to manage selected antiobiotic: Vancomycin Type of Consult: New start Suspected Infection: Sepsis Labs: Sodium 141 mmol/L (136-145) 04/22/20 04:00 Potassium 3.8 mmol/L (3.5-5.1) 04/22/20 04:00 Chloride 108 mmol/L (98-107) H 04/22/20 04:00 Carbon Dioxide 24.0 mmol/L (21.0-32.0) 04/22/20 04:00 Anion Gap 9 (5-15) 04/22/20 04:00 BUN 10 mg/dL (7-18) 04/22/20 04:00 Creatinine 0.52 mg/dL (0.70-1.30) L 04/22/20 04:00 Est GFR (MDRD) Af Amer 208 mL/min (>60) 04/22/20 04:00 Est GFR (MDRD) Non-Af 172 mL/min (>60) 04/22/20 04:00 BUN/Creatinine Ratio 19.3 RATIO (10-20) 04/22/20 04:00 Glucose 87 mg/dL (74-106) 04/22/20 04:00 Microbiology: Microbiology 04/20/20 19:45 Biopsy - Eye Gram Stain - Final 04/20/20 19:45 Biopsy - Eye Eye Culture - Preliminary Streptococcus pneumoniae Staphylococcus aureus GNR lactose manager army 04/20/20 21:15 Urine, Clean Catch Urine Culture - Preliminary Culture exhibits no growth. 04/20/20 13:50 Urine, Clean Catch Urine Culture - Final Culture exhibits no growth. 04/20/20 13:20 Blood Culture (Wb) - Anticubital Right Blood Culture - Preliminary Weight used for dosin.5 kg Estimated Creatinine Clearance: >100ml/min Goal Trough: 15-20 mcg/mL Pharmacy Plan for Drug Dosing: NEW START IV VANCOMYCIN Consulting Physician: Manuel Indication: Sepsis Goal Trough: 15-20 SrCr: 0.52 (04/22/20) CrCl: >100 (04/22/20) Comments: load/high ordered. will load with 2000mg IV x1 Vancomcyin Dose: 1000mg IV q8h (00,08,16) Pending Level: 04/23/20 @ 0730 Pharmacy Service will continue to monitor and adjust dosing as required. Follow-Up Labs: Trough Vancomycin - 04/23/20 @ 0786
[2020-04-22] MEDS: Potassium Chloride 10 MEQ in Dextrose 5%/0.9% NaCl 1,000 ML 75 MEQ IV ×2 (09:39→22:59)
[2020-04-22] MEDS: Enoxaparin 40 MG/0.4 ML Syringe SC (09:40)
[2020-04-22] MEDS: Vancomycin IV 1,000 MG/200 ML BAG 200 MG IV ×2 (15:59→23:33)
[2020-04-23] VITALS (30 sets, daily range): BP systolic 109–161; BP diastolic 71–99; PULSE 78–106; RESP 12–25; TEMP 36.6–37.2; O2SAT 91–98
[2020-04-23 04:06] LABS: Absolute Lymphocyte Count 1.39 X10^3/uL (0.83-4.51); Absolute Neutrophil Count 3.7 X10^3/uL (2.0-7.7); Basophil# 0.02 X10^3/uL; Basophil% 0.3 % (0-1); Eosinophil# 0.12 X10^3/uL; Eosinophils% 1.9 % (0-5); Hematocrit 35.5 % (40-54); Hemoglobin 11.9 g/dL (13.0-16.5); Lymphocyte # 1.39 X10^3/ul (4.0); Mean Corp Hgb Conc 33.5 g/dL (32-36); Mean Corpuscular Hgb 33.7 pg (27.0-32.0); Mean Corpuscular Volume 100.6 fL (80-94); Mean Platelet Vol. 10.2 fl (6.2-12.0); Monocyte# 1.05 X10^3/uL; Monocyte% 16.6 % (0-10); NRBC Flagged by Analyzer 0 % (0-5); Neutrophil % 58.6 % (47-70); POSITIVE COUNT YES; Platelet Count 85 K/mm3 (150-450); RBC Distribution Width CV 13.8 % (11.6-14.6); RBC Distribution Width SD 50.9 fl (35.1-43.9); Red Blood Count 3.53 M/mm3 (4.6-6.2); White Blood Count 6.3 K/mm3 (4.4-11.0)
[2020-04-23] MEDS: TITRATION PARAMETER CHANGE 1 EACH IV (04:24)
[2020-04-23 04:34] LABS: Anion Gap 8 (5-15); BUN 3 mg/dL (7-18); BUN/Creat Ratio 7.8 RATIO (10-20); Calcium,Total 7.3 mg/dL (8.5-10.1); Chloride 103 mmol/L (98-107); Creatinine, Serum 0.38 mg/dL (0.70-1.30); EST Glomerular Filtration Rate 243 mL/min (>60); Est Glom Filt Rate - Afr Amer 294 mL/min (>60); Estimated Creatinine Clearance 230.71 ml/min; Glucose 154 mg/dL (74-106); Potassium 2.3 mmol/L (3.5-5.1); Sodium Level 140 mmol/L (136-145)
[2020-04-23] MEDS: Potassium Chloride 10mEq/100mL 10 MEQ/100 ML IV.SOLN. 100 MEQ IV BOLUS ×8 (04:58→17:01)
[2020-04-23] MEDS: Potassium Chloride 40 MEQ in Dextrose 5%/0.9% NaCl 1,000 ML 100 MEQ IV ×2 (05:35→17:01)
[2020-04-23] MEDS: Neomycin/Polymyxin/Dexameth 5ML OPTH.BTL 2 DRP EACH EYE ×4 (05:37→23:59)
--- NOTE | 2020-04-23 06:29 | PCM.PN.INT ---
Subjective: Patient did okay overnight. Patient remains on Precedex of 0.7, but has been controlled behaviorally. Patient has been snoring with witnessed apneas overnight requiring 2 L nasal cannula to maintain saturations. Patient is otherwise been hemodynamically stable. Potassium was low this morning, so patient was given replacement and a repeat BMP ordered for noon. Patient is not reporting any pain or change in vision. General: No apparent distress, Confused, Disoriented, - - Slightly slurred speech, but wakes up appropriately HEENT: Atraumatic, PERRLA, EOMI, Normocephalic, - - Slight scleral injection. No exudate appreciated. Oral: Moist Mucosa, No Gingival or Mucosal Lesions/ Ulcerations Neck: Supple, No JVD, No Nodes, Trachea Midline Lungs: No wheeze, No rales, Diminished, Rhonchi - Bilateral, - - Symmetric expansion. No dullness to percussion. Cardiovascular: Regular rate, Regular Rhythm, Normal S1, Normal S2, No murmurs, No rub noted, No Gallop Abdomen: Bowel Sounds Present, Soft, Non Tender, Non-Distended Extremities: No clubbing, No cyanosis, No edema Skin: No rashes, No breakdown Musculoskeletal: No Tenderness to Palpation of Joints or Extremities Lymphatic: No Cervical, Supraclavicular, or Inguinal Adenopathy Neurological: Cranial nerves II-XII grossly intact, Neuro grossly intact, Motor Exam 5/5 strength throughout Psych/Mental Status: Appropriate, Flat Affect Vital Signs Temp Pulse Resp BP Pulse Ox 36.6 C 94 15 160/93 H 98 04/23/20 04:00 04/23/20 06:00 04/23/20 06:00 04/23/20 06:00 04/23/20 06:00 Oxygen Flow Rate (L/min) 2 Oxygen Delivery Method Nasal Cannula Weight: 86.4 kg Body Mass Index (BMI) 24.5 Intake and Output for Last 24 Hours 04/21/20 04/22/20 04/23/20 23:59 23:59 23:59 Intake Total 3188.20 / 3188.20 5494.40 / 5501.98 1021.95 / 1021.95 Output Total 0 / 0 2375 / 2375 900 / 900 Balance 3188.20 / 3188.20 3119.40 / 3126.98 121.95 / 121.95 Labs (Last 48 Hours) 04/22/20 04/22/20 04/23/20 04:00 04:00 03:50 WBC 7.0 6.3 RBC 3.28 L 3.53 L Hgb 11.1 L 11.9 L Hct 33.8 L 35.5 L MCV 103.0 H 100.6 H MCH 33.8 H 33.7 H MCHC 32.8 33.5 RDW Std Deviation 54.2 H 50.9 H RDW Coeff of William 14.2 13.8 Plt Count 97 L 85 L MPV 10.3 10.2 Immature Gran % (Auto) 0.700 0.600 Neut % (Auto) 73.8 H 58.6 Lymph % (Auto) 13.4 L 22.0 [place] % (Auto) 11.7 H 16.6 H Eos % (Auto) 0.3 1.9 Baso % (Auto) 0.1 0.3 Absolute Neuts (auto) 5.2 3.7 Absolute Lymphs (auto) 0.94 1.39 Nucleated RBC % 0 0 Sodium 141 Potassium 3.8 Chloride 108 H Carbon Dioxide 24.0 Anion Gap 9 BUN 10 Creatinine 0.52 L Estim Creat Clear Calc 168.59 Est GFR (MDRD) Af Amer 208 Est GFR (MDRD) Non-Af 172 BUN/Creatinine Ratio 19.3 Glucose 87 Calcium 7.6 L Total Bilirubin 0.70 AST 413 H ALT 141 H Alkaline Phosphatase 83 Total Creatine Kinase 4062 H Total Protein 6.6 Albumin 2.0 L Globulin 4.6 H Albumin/Globulin Ratio 0.4 L 04/23/20 03:50 WBC RBC Hgb Hct MCV MCH MCHC RDW Std Deviation RDW Coeff of William Plt Count MPV Immature Gran % (Auto) Neut % (Auto) Lymph % (Auto) [place] % (Auto) Eos % (Auto) Baso % (Auto) Absolute Neuts (auto) Absolute Lymphs (auto) Nucleated RBC % Sodium 140 Potassium 2.3 L* Chloride 103 Carbon Dioxide 29.0 Anion Gap 8 BUN 3 L Creatinine 0.38 L Estim Creat Clear Calc 230.71 Est GFR (MDRD) Af Amer 294 Est GFR (MDRD) Non-Af 243 BUN/Creatinine Ratio 7.8 L Glucose 154 H Calcium 7.3 L Total Bilirubin AST ALT Alkaline Phosphatase Total Creatine Kinase Total Protein Albumin Globulin Albumin/Globulin Ratio Microbiology 07/03/20 13:20 Blood Culture (Wb) - Anticubital Right Bacteria Detection (PCR) - Final 04/20/20 13:20 Blood Culture (Wb) - Anticubital Right Blood Culture - Preliminary 04/20/20 13:33 Blood Culture (Wb) - Right Hand Blood Culture - Preliminary No growth in 48 hours. 04/20/20 19:45 Biopsy - Eye Gram Stain - Final 04/20/20 19:45 Biopsy - Eye Eye Culture - Preliminary Streptococcus pneumoniae Staphylococcus aureus GNR lactose coupon manifest clerk 04/20/20 21:15 Urine, Clean Catch Urine Culture - Preliminary Culture exhibits no growth. 04/20/20 13:50 Urine, Clean Catch Urine Culture - Final Culture exhibits no growth. Medical Necessity - Tobacco Use Smoking Status: Current every day smoker Tobacco Use: Cigarettes Assessment/Plan All Active Problems (Last Reviewed 04/20/20 @ 17:[address] Татьяна Gamble, DO) Urinary tract infection (Acute) Hypokalemia (Acute) Elevated CPK (Acute) Alcohol withdrawal (Acute) Severe sepsis (Acute) Alcoholic hepatitis (Acute) Hyponatremia (Acute) RECOMMENDATIONS: 1. Consider initiation of p.o. phenobarbital if able to take p.o. 2. Continue thiamine and folate repletion. Monitor for refeeding syndrome 3. Continue antimicrobials, pending infectious work-up. 4. Continue supplemental IV fluid hydration. IMPRESSIONS: 1. Acute alcohol withdrawal The patient was initially managed with phenobarbital and Ativan but continued to have high CIWA scores. Patient has been responding well to Precedex therapy. Initiate phenobarbital p.o. taper if able to take p.o. Will need to monitor for refeeding syndrome with frequent electrolyte repletion. Thiamine and folate will be continued. Wean Precedex as tolerated. 2. Severe sepsis Clinical concern for right basilar pneumonia versus cystitis as potential sources of infection. The patient will be continued on empiric antimicrobials, while awaiting infectious work-up. He remains hemodynamically stable. Patient remains on eyedrops. Vision is reportedly normal and only mild scleral injection is noted. 3. Elevated liver enzymes/CK Likely secondary to alcoholic hepatitis and immobility after being found down. Continue gentle IV fluid hydration. Likely repeat CK and liver enzymes tomorrow 4. Hypertension/hyperlipidemia/depression/bipolar disorder Complicates care, management, recovery and prognosis. Continue home medications as indicated. Physical therapy to evaluate the patient once medically stabilized. Patient to remain n.p.o. for now secondary to mental status. Inpatient E&M: 12854 [facility] Hosp L3
[2020-04-23 08:27] LABS: Vancomycin, Trough Level 8.7 ug/mL (5.0-15.0)
[2020-04-23] MEDS: Vancomycin IV 1,000 MG/200 ML BAG 200 MG IV (08:30)
--- NOTE | 2020-04-23 09:51 | PCM.PROGNOTE ---
Patient Problems: Active and Suspected Problems (Last Reviewed 04/20/20 @ 17:[address] Татьяна Gamble, DO) Urinary tract infection (Acute) Hypokalemia (Acute) Elevated CPK (Acute) Alcohol withdrawal (Acute) Severe sepsis (Acute) due to PNA and UTI Alcoholic hepatitis (Acute) Hyponatremia (Acute) Seizure (Suspected) Subjective: hief complaint: Follow-up after admission for severe sepsis secondary to acute cystitis, probable aspiration pneumonia, acute kidney injury, acute alcohol withdrawal with questionable alcohol withdrawal seizure. Patient seen and examined. No acute events overnight. He remains on IV Precedex drip. This time, he is sleepy but arousable, answers question appropriately, slightly restless. His vital signs are stable. - Physical Exam Vitals/I&O's: Vital Signs Temp Pulse Resp BP Pulse Ox 98.8 F 95 15 155/95 H 98 04/23/20 08:00 04/23/20 08:00 04/23/20 08:00 04/23/20 08:00 04/23/20 08:00 Oxygen Flow Rate (L/min) 2 Oxygen Delivery Method Nasal Cannula Weight: 190 lb 7.67 oz Body Mass Index (BMI) 24.5 Intake and Output for Last 24 Hours 04/21/20 04/22/20 04/23/20 23:59 23:59 23:59 Intake Total 3188.20 / 3188.20 5494.40 / 5501.98 1690.05 / 1690.05 Output Total 0 / 0 2375 / 2375 1200 / 1200 Balance 3188.20 / 3188.20 3119.40 / 3126.98 490.05 / 490.05 General: Alert, Cooperative, Confused, - - Sleepy. HEENT: Atraumatic, PERRLA, EOMI, Normocephalic Oral: Moist Mucosa, No Gingival or Mucosal Lesions/ Ulcerations Neck: Supple, No JVD, Negative Carotid Bruits, Trachea Midline, Thyroid Normal Size and Texture Lungs: Clear to auscultation, Normal air movement, No wheeze, No rales, Diminished, Rhonchi Cardiovascular: Regular rate, Regular Rhythm, Normal S1, Normal S2, PMI Normal Abdomen: Bowel Sounds Present, Soft, Non Tender, Non-Distended, No Hepato-splenomegaly Extremities: No clubbing, No cyanosis, No edema Skin: No rashes, No breakdown Lymphatic: No Cervical, Supraclavicular, or Inguinal Adenopathy Neurological: Cranial nerves II-XII grossly intact, - - Moving all limbs. Psych/Mental Status: Normal Affect, Restless Microbiology Past 72 Hours 04/20/20 19:45 Biopsy - Eye Gram Stain - Final 04/20/20 19:45 Biopsy - Eye Eye Culture - Preliminary Streptococcus pneumoniae Staphylococcus aureus Klebsiella oxytoca Gram positive duke Coag Negative Staph 04/20/20 21:15 Urine, Clean Catch Urine Culture - Final Culture exhibits no growth. 04/20/20 13:20 Blood Culture (Wb) - Anticubital Right Bacteria Detection (PCR) - Final 04/20/20 13:20 Blood Culture (Wb) - Anticubital Right Blood Culture - Preliminary Presumptive Micrococcus spp. 04/20/20 13:33 Blood Culture (Wb) - Right Hand Blood Culture - Preliminary No growth in 48 hours. 04/20/20 13:50 Urine, Clean Catch Urine Culture - Final Culture exhibits no growth. Laboratory Results 04/23/20 03:50: WBC 6.3, RBC 3.53 L, Hgb 11.9 L, Hct 35.5 L, MCV 100.6 H, MCH 33.7 H, MCHC 33.5, RDW Std Deviation 50.9 H, RDW Coeff of William 13.8, Plt Count 85 L, MPV 10.2, Immature Gran % (Auto) 0.600, Neut % (Auto) 58.6, Lymph % (Auto) 22.0, Parmer % (Auto) 16.6 H, Eos % (Auto) 1.9, Baso % (Auto) 0.3, Absolute Neuts (auto) 3.7, Absolute Lymphs (auto) 1.39, Nucleated RBC % 0 04/23/20 03:50: Sodium 140, Potassium 2.3 L*, Chloride 103, Carbon Dioxide 29.0, Anion Gap 8, BUN 3 L, Creatinine 0.38 L, Estim Creat Clear Calc 230.71, Est GFR (MDRD) Af Amer 294, Est GFR (MDRD) Non-Af 243, BUN/Creatinine Ratio 7.8 L, Glucose 154 H, Calcium 7.3 L 04/23/20 07:45: Vancomycin Trough 8.7 Current Medications Albuterol Sulfate (Ventolin Aerosols) 2.5 mg INHALATION Q2H PRN PRN PRN Reason: SOB/Wheezing Bisacodyl (Dulcolax) 5 mg PO DAILY PRN PRN PRN Reason: Constipation Enoxaparin Sodium (Lovenox) 40 mg SC DAILY [facility] Last Admin: 04/22/20 09:40 Dose: 40 mg Documented by: Folic Acid 1 mg/ Sodium (Chloride) 50.2 mls @ 200 mls/hr IV DAILY [facility] Last Infusion: 04/22/20 10:11 Dose: Infused Documented by: Ampicillin Sodium/Sulbactam (Sodium 3 gm/ Sodium Chloride) 112 mls @ 150 mls/hr IV Q8 [facility] Last Infusion: 04/23/20 06:21 Dose: Infused Documented by: Thiamine HCl 200 mg/ Sodium (Chloride) 52 mls @ 200 mls/hr IV DAILY [facility] Last Infusion: 04/22/20 10:11 Dose: Infused Documented by: Dexmedetomidine HCl 400 mcg/ (Sodium Chloride) 100 mls @ 10.8 mls/hr CONT INF .Q9H16M [facility]; Protocol Last Titration: 04/23/20 08:00 Dose: 0.7 mcg/kg/hr, 15.1 mls/hr Documented by: Vancomycin IV Pharmacy to Dose (1 ea/ Sodium Chloride) 500 mls @ 250 mls/hr IV X1 PRN; Protocol PRN Reason: Rx to Dose Vancomycin HCl (Vancomycin) 1,000 mg in 200 mls @ 200 mls/hr IV Q8H [facility] Last Infusion: 04/23/20 09:38 Dose: Infused Documented by: Potassium Chloride 40 meq/ (Dextrose/Sodium Chloride) 1,020 mls @ 100 mls/hr IV .[id number] [facility] Last Infusion: 04/23/20 08:00 Dose: 100 mls/hr Documented by: Neomycin/Polymyxin/Dexamethasone (Maxitrol) 2 drop EACH EYE Q6 [facility] Last Admin: 04/23/20 05:37 Dose: 2 drop Documented by: Prochlorperazine Edisylate (Compazine Iv) 5 mg IV Q4H PRN PRN PRN Reason: Breakthrough Nausea/Vomiting Sodium Chloride () 10 - 40 ml IV UD PRN PRN Reason: SALINE FLUSH Last Admin: 04/22/20 03:58 Dose: 20 ml Documented by: Medical Necessity - Tobacco Use Smoking Status: Current every day smoker Tobacco Use: Cigarettes Assessment/Plan All Active Problems (Last Reviewed 04/20/20 @ 17:[address] Татьяна Gamble DO) Urinary tract infection (Acute) Hypokalemia (Acute) Elevated CPK (Acute) Alcohol withdrawal (Acute) Severe sepsis (Acute) Alcoholic hepatitis (Acute) Hyponatremia (Acute) This is a 59 years old male patient presented to the emergency room because he was found on the floor by a neighbor, was not able to get up, was hallucinating and he was found to have severe sepsis secondary to acute cystitis and probable aspiration pneumonia, found to have acute alcohol withdrawal, admitted for medical stabilization and also found to have hypokalemia/hyponatremia and elevated LFT. #1 severe sepsis: Secondary to UTI and pneumonia. Remained on IV Unasyn and vancomycin. He has been afebrile for the last 24 hours, hemodynamically stable. Urine culture showed no growth. Blood culture revealed presumptive micrococcus species, likely contaminant. Plan to continue same treatment. #2 probable right basilar aspiration pneumonia: He is on IV vancomycin and Unasyn as above. Chest x-ray reviewed, questionable faint right basilar infiltrate likely due to aspiration. He has been afebrile, leukocytosis resolved. Cultures reviewed as above. #3 acute cystitis: Urine culture showed no growth but remains on IV Unasyn and vancomycin as above. #4 Gram-positive bacteremia: Likely due to skin contamination. 1 bottle of blood culture revealed micrococcus species.. He is already on IV vancomycin and Unasyn as above. #4 acute alcohol withdrawal/questionable alcohol withdrawal seizure: Remained on IV Precedex drip. Hemodynamically stable. He is on thiamine folic acid. Critical care on the case. Blood alcohol level was less than 3. Urine drug screen was positive for cannabinoids. COVID-19 PCR was negative. Plan to continue same treatment. #5 elevated LFTs/elevated creatinine kinase: Liver transaminases mainly elevated likely due to alcoholic hepatitis. Repeat creatinine kinase was trending down. Kidney function has been stable. #6 hyponatremia/hypokalemia: Today potassium again is low at 2.3, currently on potassium replacement. Sodium is back to normal. Serum magnesium and phosphorus were normal. #7 bilateral conjunctivitis: Started on Maxitrol eyedrops. #8 hypertension: At this time, blood pressure slightly elevated. Metoprolol held. #9 hyperlipidemia: Keep holding statins. #10 depression/bipolar disorder: Currently on IV Precedex drip. #11 DVT prophylaxis, subcu Lovenox. This note was generated with [employer] dictation software. It may contain incorrect words, spelling, and punctuation that were not noted in checking the note before signing. Inpatient E&M: 24864 Subs Hosp L2
[2020-04-23] MEDS: 0.9% Saline Lock 10 ML Syringe IV (10:33)
[2020-04-23] MEDS: Enoxaparin 40 MG/0.4 ML Syringe SC (10:34)
--- NOTE | 2020-04-23 11:05 | PCM.RX.CS ---
Consult Pharmacy has been consulted to manage selected antiobiotic: Vancomycin Type of Consult: Follow-up Suspected Infection: Sepsis Labs: Sodium 140 mmol/L (136-145) 04/23/20 03:50 Potassium 2.3 mmol/L (3.5-5.1) L* 04/23/20 03:50 Chloride 103 mmol/L (98-107) 04/23/20 03:50 Carbon Dioxide 29.0 mmol/L (21.0-32.0) 04/23/20 03:50 Anion Gap 8 (5-15) 04/23/20 03:50 BUN 3 mg/dL (7-18) L 04/23/20 03:50 Creatinine 0.38 mg/dL (0.70-1.30) L 04/23/20 03:50 Est GFR (MDRD) Af Amer 294 mL/min (>60) 04/23/20 03:50 Est GFR (MDRD) Non-Af 243 mL/min (>60) 04/23/20 03:50 BUN/Creatinine Ratio 7.8 RATIO (10-20) L 04/23/20 03:50 Glucose 154 mg/dL (74-106) H 04/23/20 03:50 Vancomycin Trough 8.7 ug/mL (5.0-15.0) 04/23/20 07:45 Microbiology: Microbiology 04/20/20 19:45 Biopsy - Eye Gram Stain - Final 04/20/20 19:45 Biopsy - Eye Eye Culture - Preliminary Streptococcus pneumoniae Staphylococcus aureus Klebsiella oxytoca Gram positive duke Coag Negative Staph 04/20/20 21:15 Urine, Clean Catch Urine Culture - Final Culture exhibits no growth. 04/20/20 13:20 Blood Culture (Wb) - Anticubital Right Bacteria Detection (PCR) - Final 04/20/20 13:20 Blood Culture (Wb) - Anticubital Right Blood Culture - Preliminary Presumptive Micrococcus spp. 04/20/20 13:33 Blood Culture (Wb) - Right Hand Blood Culture - Preliminary No growth in 48 hours. 04/20/20 13:50 Urine, Clean Catch Urine Culture - Final Culture exhibits no growth. Goal Trough: 15-20 mcg/mL Pharmacy Plan for Drug Dosing: VANCOMYCIN LEVEL RECEIVED Current Vancomycin Dose: 1000mg IV Q8hr Number of Doses Received: 2 + loading dose of 2000mg IV x1 Vancomycin Level: 8.7 Hours Since Last Dose: ~8hr Renal Function: 0.38 Renal Function Trend: stable Lab/Micro: BCx 1/2 Micrococcus (suspected contamination) Vancomycin Plan/Comments: Vancomcyin trough resulted in a value of 8.7 (drawn ~8hr from last dose). This is subtherappeutic as goal trough 15-20. Would increase dose, but vancomycin has been dc'd. Pending Level: none, deirdreo dc'd
[2020-04-23 12:23] LABS: Anion Gap 6 (5-15); BUN 3 mg/dL (7-18); Calcium,Total 7.1 mg/dL (8.5-10.1); Chloride 103 mmol/L (98-107); Creatinine, Serum 0.43 mg/dL (0.70-1.30); EST Glomerular Filtration Rate 216 mL/min (>60); Est Glom Filt Rate - Afr Amer 261 mL/min (>60); Estimated Creatinine Clearance 203.88 ml/min; Glucose 161 mg/dL (74-106); Potassium 2.8 mmol/L (3.5-5.1); Sodium Level 139 mmol/L (136-145)
[2020-04-23 12:24] LABS: Magnesium 1.2 mg/dL (1.6-2.6)
[2020-04-23] MEDS: Magnesium Sulfate 4gm/100mL 4 GM/100 ML IV.SOLN. IV (13:06)
[2020-04-23] MEDS: Phenobarbital 32.4 MG Tablet 97.2 MG PO ×3 (14:24→22:25)
--- NOTE | 2020-04-23 15:40 | CASEMGMT ---
RN CM Note: assessment deferred for today. Pt in ETOH w/d and on Presedex. CM/SW available for dc planning. Mariam DANIELLEN RN ACM
[2020-04-23] MEDS: QUEtiapine 100 MG Tablet 400 MG PO (22:25)
[2020-04-24] VITALS (27 sets, daily range): BP systolic 113–150; BP diastolic 68–100; PULSE 82–143; RESP 14–30; TEMP 36.6–37.2; O2SAT 90–99
[2020-04-24] MEDS: Potassium Chloride 40 MEQ in Dextrose 5%/0.9% NaCl 1,000 ML 100 MEQ IV ×2 (03:31→13:29)
[2020-04-24 04:04] LABS: Anion Gap 5 (5-15); BUN 4 mg/dL (7-18); BUN/Creat Ratio 10.2 RATIO (10-20); Calcium,Total 7.3 mg/dL (8.5-10.1); Chloride 103 mmol/L (98-107); Creatinine, Serum 0.39 mg/dL (0.70-1.30); EST Glomerular Filtration Rate 237 mL/min (>60); Est Glom Filt Rate - Afr Amer 287 mL/min (>60); Estimated Creatinine Clearance 224.79 ml/min; Glucose 161 mg/dL (74-106); Phosphorus 1.1 mg/dL (2.5-4.9); Potassium 2.7 mmol/L (3.5-5.1); Sodium Level 138 mmol/L (136-145)
[2020-04-24] MEDS: Neomycin/Polymyxin/Dexameth 5ML OPTH.BTL 2 DRP EACH EYE ×4 (05:17→23:24)
[2020-04-24] MEDS: 0.9% Saline Lock 10 ML Syringe IV ×4 (05:21→23:27)
[2020-04-24] MEDS: Phenobarbital 32.4 MG Tablet 97.2 MG PO (05:28)
[2020-04-24] MEDS: TITRATION PARAMETER CHANGE 1 EACH IV (05:37)
[2020-04-24] MEDS: Potassium Chloride 10mEq/100mL 10 MEQ/100 ML IV.SOLN. 100 MEQ IV BOLUS ×4 (06:03→09:23)
--- NOTE | 2020-04-24 06:23 | PN_ITS ---
Subjective: Patient did okay overnight. Patient did become agitated in the afternoon requiring increase in Precedex. However, overnight, patient became oversedated and had to be decreased on Precedex. Precedex is currently off, but patient did miss a dose of phenobarbital overnight secondary to mental status. Patient continues to cough and there is some concern for swallow, so nursing did request a speech evaluation. Patient is more interactive today. Patient is denying any pain. General: Alert, Confused, Disoriented, - - Appears older than stated age. No conversational dyspnea. Periodic nonproductive cough. HEENT: Atraumatic, PERRLA, EOMI, Normocephalic, - - Slight scleral injection without icterus Oral: Moist Mucosa, No Gingival or Mucosal Lesions/ Ulcerations Neck: Supple, No JVD, No Nodes, Trachea Midline Lungs: No wheeze, No rales, Diminished, Rhonchi - Poor cough, - - Symmetric expansion Cardiovascular: Normal S1, Normal S2, No murmurs, No rub noted, No Gallop, Tachycardic Abdomen: Bowel Sounds Present, Soft, Non Tender, Non-Distended Extremities: No clubbing, No cyanosis, No edema, Capillary Refill Less than 3 Seconds Skin: - - No change compared to previous Musculoskeletal: No Tenderness to Palpation of Joints or Extremities Lymphatic: No Cervical, Supraclavicular, or Inguinal Adenopathy Neurological: Cranial nerves II-XII grossly intact, Neuro grossly intact, Motor Exam 5/5 strength throughout Psych/Mental Status: Flat Affect, Restless Vital Signs Temp Pulse Resp BP Pulse Ox 36.7 C 136 H 25 H 147/85 H 97 04/24/20 04:00 04/24/20 06:00 04/24/20 06:00 04/24/20 06:00 04/24/20 06:00 Oxygen Flow Rate (L/min) 2 Oxygen Delivery Method Nasal Cannula Weight: 88.2 kg Body Mass Index (BMI) 24.5 Intake and Output for Last 24 Hours 04/22/20 04/23/20 04/24/20 23:59 23:59 23:59 Intake Total 5494.40 / 5501.98 4163.15 / 4244.75 1052.92 / 1052.92 Output Total 2375 / 2375 2375 / 2775 400 / 400 Balance 3119.40 / 3126.98 1788.15 / 1469.75 652.92 / 652.92 Labs (Last 48 Hours) 04/23/20 04/23/20 04/23/20 03:50 03:50 07:45 WBC 6.3 RBC 3.53 L Hgb 11.9 L Hct 35.5 L MCV 100.6 H MCH 33.7 H MCHC 33.5 RDW Std Deviation 50.9 H RDW Coeff of William 13.8 Plt Count 85 L MPV 10.2 Immature Gran % (Auto) 0.600 Neut % (Auto) 58.6 Lymph % (Auto) 22.0 [place] % (Auto) 16.6 H Eos % (Auto) 1.9 Baso % (Auto) 0.3 Absolute Neuts (auto) 3.7 Absolute Lymphs (auto) 1.39 Nucleated RBC % 0 Sodium 140 Potassium 2.3 L* Chloride 103 Carbon Dioxide 29.0 Anion Gap 8 BUN 3 L Creatinine 0.38 L Estim Creat Clear Calc 230.71 Est GFR (MDRD) Af Amer 294 Est GFR (MDRD) Non-Af 243 BUN/Creatinine Ratio 7.8 L Glucose 154 H Calcium 7.3 L Phosphorus Magnesium Vancomycin Trough 8.7 04/23/20 04/23/20 04/24/20 12:05 12:05 03:35 WBC RBC Hgb Hct MCV MCH MCHC RDW Std Deviation RDW Coeff of William Plt Count MPV Immature Gran % (Auto) Neut % (Auto) Lymph % (Auto) [place] % (Auto) Eos % (Auto) Baso % (Auto) Absolute Neuts (auto) Absolute Lymphs (auto) Nucleated RBC % Sodium 139 138 Potassium 2.8 L 2.7 L* Chloride 103 103 Carbon Dioxide 30.0 30.0 Anion Gap 6 5 BUN 3 L 4 L Creatinine 0.43 L 0.39 L Estim Creat Clear Calc 203.88 224.79 Est GFR (MDRD) Af Amer 261 287 Est GFR (MDRD) Non-Af 216 237 BUN/Creatinine Ratio 7.0 L 10.2 Glucose 161 H 161 H Calcium 7.1 L 7.3 L Phosphorus 1.1 L* Magnesium 1.2 L 2.0 Vancomycin Trough Microbiology 04/20/20 19:45 Biopsy - Eye Gram Stain - Final 04/20/20 19:45 Biopsy - Eye Eye Culture - Preliminary Streptococcus pneumoniae Staphylococcus aureus Klebsiella oxytoca Gram positive duke Coag Negative Staph 04/20/20 19:45 Biopsy - Eye Anaerobic Culture - Preliminary Checking for anaerobes, further studies to follow. 04/20/20 21:15 Urine, Clean Catch Urine Culture - Final Culture exhibits no growth. 04/20/20 13:20 Blood Culture (Wb) - Anticubital Right Bacteria Detection (PCR) - Final 04/20/20 13:20 Blood Culture (Wb) - Anticubital Right Blood Culture - Preliminary Presumptive Micrococcus spp. 04/20/20 13:33 Blood Culture (Wb) - Right Hand Blood Culture - Preliminary No growth in 48 hours. 04/20/20 13:50 Urine, Clean Catch Urine Culture - Final Culture exhibits no growth. Medical Necessity - Tobacco Use Smoking Status: Current every day smoker Tobacco Use: Cigarettes Assessment/Plan All Active Problems (Last Reviewed 04/20/20 @ 17:[address] Татьяна Gamble, DO) Urinary tract infection (Acute) Hypokalemia (Acute) Elevated CPK (Acute) Alcohol withdrawal (Acute) Severe sepsis (Acute) Alcoholic hepatitis (Acute) Hyponatremia (Acute) RECOMMENDATIONS: 1. Continue phenobarb taper. Avoid Precedex if possible 2. Continue thiamine and folate repletion. Electrolyte repletion as indicated. Monitor for refeeding syndrome 3. Continue antimicrobials, pending infectious work-up. 4. Continue supplemental IV fluid hydration pending initiation of p.o. diet. IMPRESSIONS: 1. Acute alcohol withdrawal The patient was initially managed with phenobarbital and Ativan but continued to have high CIWA scores. Patient has been responded well to Precedex therapy. Continue phenobarbital p.o. taper if able. Will need to monitor for refeeding syndrome with frequent electrolyte repletion. Thiamine and folate will be continued. Wean Precedex as tolerated. Electrolyte repletion as tolerated 2. Severe sepsis Clinical concern for right basilar pneumonia versus cystitis as potential sources of infection. The patient will be continued on empiric antimicrobials, while awaiting infectious work-up. He remains hemodynamically stable. Patient remains on eyedrops. Vision is reportedly normal and only mild scleral injecti on is noted. Anticipate 7 days of ocular antibiotics 3. Elevated liver enzymes/CK Likely secondary to alcoholic hepatitis and immobility after being found down. Continue gentle IV fluid hydration. 4. Hypertension/hyperlipidemia/depression/bipolar disorder Complicates care, management, recovery and prognosis. Continue home medications as indicated. Physical therapy to evaluate the patient once medically stabilized. Continue to monitor mental status closely. Home Seroquel was reinitiated. Inpatient E&M: 59803 Subs Hosp L3
--- NOTE | 2020-04-24 08:24 | PCM.PROGNOTE ---
Patient Problems: Active and Suspected Problems (Last Reviewed 04/20/20 @ 17:[address] Татьяна Gamble, DO) Urinary tract infection (Acute) Hypokalemia (Acute) Elevated CPK (Acute) Alcohol withdrawal (Acute) Severe sepsis (Acute) due to PNA and UTI Alcoholic hepatitis (Acute) Hyponatremia (Acute) Seizure (Suspected) Subjective: Chief complaint: Follow-up after admission for severe sepsis secondary to acute cystitis, probable aspiration pneumonia, acute kidney injury, acute alcohol withdrawal with questionable alcohol withdrawal seizure. He developed severe hypokalemia, hypophosphatemia and hypomagnesemia. Patient seen and examined. Overnight, patient became agitated, Precedex increased and he received phenobarbital but he became oversedated. IV Precedex drip discontinued this morning at 5 AM. At this time, patient is awake, alert, oriented x3. He is still little bit shaky, tachycardic. He is afebrile, heart rate has been around 130s, blood pressure slightly elevated, pulse ox is 97% on 4 L. - Physical Exam Vitals/I&O's: Vital Signs Temp Pulse Resp BP Pulse Ox 98.1 F 135 H 24 H 150/93 H 97 04/24/20 04:00 04/24/20 07:57 04/24/20 07:57 04/24/20 07:57 04/24/20 07:57 Oxygen Flow Rate (L/min) 7 Oxygen Delivery Method Nasal Cannula Weight: 194 lb 7.163 oz Body Mass Index (BMI) 24.5 Intake and Output for Last 24 Hours 04/22/20 04/23/20 04/24/20 23:59 23:59 23:59 Intake Total 5494.40 / 5501.98 4163.15 / 4244.75 1435.67 / 1435.67 Output Total 2375 / 2375 2375 / 2775 400 / 400 Balance 3119.40 / 3126.98 1788.15 / 1469.75 1035.67 / 1035.67 General: Alert, Oriented x3, Cooperative, - - Minimal restlessness. HEENT: Atraumatic, PERRLA, EOMI, Normocephalic Oral: Moist Mucosa, No Gingival or Mucosal Lesions/ Ulcerations Neck: Supple, No JVD, Negative Carotid Bruits, Trachea Midline, Thyroid Normal Size and Texture Lungs: No wheeze, No rales, Diminished, Rhonchi, - - Diminished breath sounds bilateral, scattered rhonchi. Cardiovascular: Regular rate, Regular Rhythm, Normal S1, Normal S2, PMI Normal, Tachycardic Abdomen: Bowel Sounds Present, Soft, Non Tender, Non-Distended, No Hepato-splenomegaly Extremities: No clubbing, No cyanosis, No edema Skin: No rashes, No breakdown Lymphatic: No Cervical, Supraclavicular, or Inguinal Adenopathy Neurological: Cranial nerves II-XII grossly intact, Neuro grossly intact Psych/Mental Status: Appropriate, Flat Affect, Restless Microbiology Past 72 Hours 04/20/20 19:45 Biopsy - Eye Gram Stain - Final 04/20/20 19:45 Biopsy - Eye Eye Culture - Preliminary Streptococcus pneumoniae Staphylococcus aureus Klebsiella oxytoca Gram positive duke Coag Negative Staph 04/20/20 19:45 Biopsy - Eye Anaerobic Culture - Preliminary Checking for anaerobes, further studies to follow. 04/20/20 21:15 Urine, Clean Catch Urine Culture - Final Culture exhibits no growth. 04/20/20 13:20 Blood Culture (Wb) - Anticubital Right Bacteria Detection (PCR) - Final 04/20/20 13:20 Blood Culture (Wb) - Anticubital Right Blood Culture - Preliminary Presumptive Micrococcus spp. 04/20/20 13:33 Blood Culture (Wb) - Right Hand Blood Culture - Preliminary No growth in 48 hours. 04/20/20 13:50 Urine, Clean Catch Urine Culture - Final Culture exhibits no growth. Laboratory Results 04/23/20 07:45: Vancomycin Trough 8.7 04/23/20 12:05: Sodium 139, Potassium 2.8 L, Chloride 103, Carbon Dioxide 30.0, Anion Gap 6, BUN 3 L, Creatinine 0.43 L, Estim Creat Clear Calc 203.88, Est GFR (MDRD) Af Amer 261, Est GFR (MDRD) Non-Af 216, BUN/Creatinine Ratio 7.0 L, Glucose 161 H, Calcium 7.1 L 04/23/20 12:05: Magnesium 1.2 L 04/24/20 03:35: Sodium 138, Potassium 2.7 L*, Chloride 103, Carbon Dioxide 30.0, Anion Gap 5, BUN 4 L, Creatinine 0.39 L, Estim Creat Clear Calc 224.79, Est GFR (MDRD) Af Amer 287, Est GFR (MDRD) Non-Af 237, BUN/Creatinine Ratio 10.2, Glucose 161 H, Calcium 7.3 L, Phosphorus 1.1 L*, Magnesium 2.0 Current Medications Albuterol Sulfate (Ventolin Aerosols) 2.5 mg INHALATION Q2H PRN PRN PRN Reason: SOB/Wheezing Bisacodyl (Dulcolax) 5 mg PO DAILY PRN PRN PRN Reason: Constipation Enoxaparin Sodium (Lovenox) 40 mg SC DAILY [facility] Last Admin: 04/23/20 10:34 Dose: 40 mg Documented by: Hydroxyzine Pamoate (Vistaril Pamoate Capsule) 50 mg PO Q4H PRN PRN PRN Reason: mild anxiety Folic Acid 1 mg/ Sodium (Chloride) 50.2 mls @ 200 mls/hr IV DAILY [facility] Last Infusion: 04/23/20 11:24 Dose: Infused Documented by: Ampicillin Sodium/Sulbactam (Sodium 3 gm/ Sodium Chloride) 112 mls @ 150 mls/hr IV Q8 [facility] Last Infusion: 04/24/20 06:10 Dose: Infused Documented by: Thiamine HCl 200 mg/ Sodium (Chloride) 52 mls @ 200 mls/hr IV DAILY [facility] Last Infusion: 04/23/20 10:56 Dose: Infused Documented by: Potassium Chloride 40 meq/ (Dextrose/Sodium Chloride) 1,020 mls @ 100 mls/hr IV .[id number] [facility] Last Admin: 04/24/20 03:31 Dose: 100 mls/hr Documented by: Sodium Chloride () 250 mls @ 15 mls/hr IV .[id number] PRN PRN Reason: Saline Flush Last Infusion: 04/24/20 07:29 Dose: 0 mls/hr Documented by: Sodium Chloride () 250 mls @ 15 mls/hr IV .[id number] PRN PRN Reason: Additional IVPB Infusion Potassium Phosphate 30 mm/ (Sodium Chloride) 260 mls @ 42 mls/hr IV X1 ONE Stop: 04/24/20 11:39 Last Admin: 04/24/20 06:08 Dose: 42 mls/hr Documented by: Potassium Chloride () 10 meq in 100 mls @ 100 mls/hr IV BOLUS Q1H [facility] Stop: 04/24/20 09:29 Last Admin: 04/24/20 08:20 Dose: 100 mls/hr Documented by: Neomycin/Polymyxin/Dexamethasone (Maxitrol) 2 drop EACH EYE Q6 [facility] Last Admin: 04/24/20 05:17 Dose: 2 drop Documented by: Phenobarbital (Phenobarbital) 97.2 mg PO Q4H [facility]; Taper Stop: 04/27/20 21:59 Last Admin: 04/24/20 05:28 Dose: 97.2 mg Documented by: Prochlorperazine Edisylate (Compazine Iv) 5 mg IV Q4H PRN PRN PRN Reason: Breakthrough Nausea/Vomiting Quetiapine Fumarate (Seroquel) 400 mg PO BID [facility] Last Admin: 04/23/20 22:25 Dose: 400 mg Documented by: Sodium Chloride () 10 - 40 ml IV UD PRN PRN Reason: SALINE FLUSH Last Admin: 04/24/20 05:21 Dose: 40 ml Documented by: Medical Necessity - Tobacco Use Smoking Status: Current every day smoker Tobacco Use: Cigarettes Assessment/Plan All Active Problems (Last Reviewed 04/20/20 @ 17:[address] Татьяна Gamble, DO) Urinary tract infection (Acute) Hypokalemia (Acute) Elevated CPK (Acute) Alcohol withdrawal (Acute) Severe sepsis (Acute) Alcoholic hepatitis (Acute) Hyponatremia (Acute) This is a 59 years old male patient presented to the emergency room because he was found on the floor by a neighbor, was not able to get up, was hallucinating and he was found to have severe sepsis secondary to acute cystitis and probable aspiration pneumonia, found to have acute alcohol withdrawal, admitted for medical stabilization and also found to have hypokalemia/hyponatremia and elevated LFT. #1 severe sepsis: Secondary to UTI and pneumonia. Remained on IV Unasyn. Vancomycin discontinued. And vancomycin. He remained afebrile, no leukocytosis. Today, he is tachycardic likely because he did not receive his metoprolol XL for the last couple of days. Urine culture showed no growth. Blood culture revealed presumptive micrococcus species, likely contaminant. Plan to continue same treatment, aggressive replacement of potassium and phosphorus, restart metoprolol XL if cleared by speech therapy. #2 probable right basilar aspiration pneumonia: He is on IV Unasyn as above. Chest x-ray reviewed, questionable faint right basilar infiltrate likely due to aspiration. He has been afebrile, leukocytosis resolved. Cultures reviewed as above. Plan to continue same treatment. #3 acute cystitis: Urine culture showed no growth but remains on IV Unasyn as above. #4 Gram-positive bacteremia: Likely due to skin contamination. 1 bottle of blood culture revealed micrococcus species.. Remains on IV Unasyn as above. #4 acute alcohol withdrawal/questionable alcohol withdrawal seizure: At this time, he is on phenobarbital taper, Precedex drip discontinued this morning at 5 AM. At this time, he is awake, alert, communicating and following commands appropriately. Apart from tachycardia, other vital signs are stable. He is on thiamine folic acid. Critical care on the case. Blood alcohol level was less than 3. Urine drug screen was positive for cannabinoids. COVID-19 PCR was negative. Plan as above. #5 elevated LFTs/elevated creatinine kinase: Liver transaminases mainly elevated likely due to alcoholic hepatitis. Repeat creatinine kinase was trending down. Kidney function has been stable. #6 hyponatremia/hypokalemia/hypophosphatemia/hypomagnesemia: Likely due to refeeding syndrome. Sodium replaced and corrected. Potassium is still very low as well as phosphorus. Today's magnesium is 2 which is normal. Patient is on aggressive potassium and phosphorus replacement. Plan to repeat electrolytes at noon today. #7 bilateral conjunctivitis: Started on Maxitrol eyedrops. #8 hypertension: At this time, blood pressure slightly elevated and he is tachycardic. Plan to resume metoprolol XL if cleared by speech therapy as above. #9 hyperlipidemia: Keep holding statins. #10 depression/bipolar disorder: Plan to resume Prozac and quetiapine if cleared by speech therapy. #11 DVT prophylaxis, subcu Lovenox. This note was generated with [employer] dictation software. It may contain incorrect words, spelling, and punctuation that were not noted in checking the note before signing. Inpatient E&M: 80560 Subs Hosp L2
[2020-04-24] MEDS: Enoxaparin 40 MG/0.4 ML Syringe SC (11:52)
[2020-04-24] MEDS: Metoprolol Tartrate 5 MG/5 ML Vial IV ×3 (11:53→23:24)
[2020-04-24 12:43] LABS: Anion Gap 5 (5-15); BUN 3 mg/dL (7-18); Calcium,Total 7.3 mg/dL (8.5-10.1); Chloride 105 mmol/L (98-107); Creatinine, Serum 0.43 mg/dL (0.70-1.30); EST Glomerular Filtration Rate 215 mL/min (>60); Est Glom Filt Rate - Afr Amer 260 mL/min (>60); Estimated Creatinine Clearance 203.88 ml/min; Glucose 157 mg/dL (74-106); Potassium 3.6 mmol/L (3.5-5.1); Sodium Level 139 mmol/L (136-145)
--- NOTE | 2020-04-24 13:06 | CASEMGMT ---
SW went to meet with patient. He asked SW to move his chair so he can get his keys that he dropped. SW looked on the floor and there were no keys anywhere. SW told patient this. SW asked patient if he is interested in resources to help him quit drinking. He mumbled something. SW told him SW will leave the resources with him. Chelsey BARRY
[2020-04-25] VITALS (12 sets, daily range): BP systolic 146–156; BP diastolic 81–94; PULSE 107–115; RESP 16–18; TEMP 36.9–37.6; O2SAT 91–96
[2020-04-25] MEDS: Potassium Chloride 40 MEQ in Dextrose 5%/0.9% NaCl 1,000 ML 100 MEQ IV (01:24)
[2020-04-25] MEDS: Neomycin/Polymyxin/Dexameth 5ML OPTH.BTL 2 DRP EACH EYE ×3 (05:06→16:47)
[2020-04-25] MEDS: 0.9% Saline Lock 10 ML Syringe IV (05:06)
[2020-04-25] MEDS: Metoprolol Tartrate 5 MG/5 ML Vial IV ×2 (05:07→11:21)
[2020-04-25 07:08] LABS: Anion Gap 7 (5-15); BUN 3 mg/dL (7-18); BUN/Creat Ratio 7.4 RATIO (10-20); Calcium,Total 7.8 mg/dL (8.5-10.1); Chloride 102 mmol/L (98-107); Creatinine, Serum 0.41 mg/dL (0.70-1.30); EST Glomerular Filtration Rate 227 mL/min (>60); Est Glom Filt Rate - Afr Amer 275 mL/min (>60); Estimated Creatinine Clearance 213.82 ml/min; Glucose 125 mg/dL (74-106); Magnesium 1.6 mg/dL (1.6-2.6); Phosphorus 2.4 mg/dL (2.5-4.9); Potassium 2.5 mmol/L (3.5-5.1); Sodium Level 139 mmol/L (136-145)
[2020-04-25] MEDS: Dextrose 5%/0.9% NaCl 1,000 ML 60 ML IV (07:34)
[2020-04-25] MEDS: Potassium Chloride 10mEq/100mL 10 MEQ/100 ML IV.SOLN. 100 MEQ IV BOLUS ×4 (07:44→10:51)
--- NOTE | 2020-04-25 07:44 | PCM.PROGNOTE ---
Patient Problems: Active and Suspected Problems (Last Reviewed 04/20/20 @ 17:[address] Татьяна Gamble, DO) Urinary tract infection (Acute) Hypokalemia (Acute) Elevated CPK (Acute) Alcohol withdrawal (Acute) Severe sepsis (Acute) due to PNA and UTI Alcoholic hepatitis (Acute) Hyponatremia (Acute) Seizure (Suspected) Subjective: Chief complaint: Follow-up after admission for severe sepsis secondary to acute cystitis, probable aspiration pneumonia, acute kidney injury, acute alcohol withdrawal with questionable alcohol withdrawal seizure. He developed severe hypokalemia, hypophosphatemia and hypomagnesemia. Patient seen and examined. No acute events overnight. Smiling, he is sitting on his chair, comfortable. He denied any complaints. He remained n.p.o. because of aspiration. He is afebrile, heart rate has been around 110, blood pressure slightly elevated, pulse ox is 96% on 2 L. - Physical Exam Vitals/I&O's: Vital Signs Temp Pulse Resp BP Pulse Ox 98.9 F 113 H 16 156/94 H 91 04/25/20 05:00 04/25/20 06:43 04/25/20 05:00 04/25/20 05:00 04/25/20 06:56 Oxygen Flow Rate (L/min) 2 Oxygen Delivery Method Nasal Cannula Weight: 189 lb 13.088 oz Body Mass Index (BMI) 24.5 Intake and Output for Last 24 Hours 04/23/20 04/24/20 04/25/20 23:59 23:59 23:59 Intake Total 4163.15 / 4244.75 4023.01 / 4023.01 940.33 / 940.33 Output Total 2375 / 2775 400 / 400 Balance 1788.15 / 1469.75 3623.01 / 3623.01 940.33 / 940.33 General: Alert, Oriented x3, Cooperative, No apparent distress HEENT: Atraumatic, PERRLA, EOMI, Normocephalic Oral: Moist Mucosa, No Gingival or Mucosal Lesions/ Ulcerations Neck: Supple, No JVD, Negative Carotid Bruits, Trachea Midline, Thyroid Normal Size and Texture Lungs: No wheeze, No rales, Diminished, Rhonchi, - - Diminished breath sounds bilateral, scattered rhonchi. Cardiovascular: Regular rate, Regular Rhythm, Normal S1, Normal S2, PMI Normal, Tachycardic Abdomen: Bowel Sounds Present, Soft, Non Tender, Non-Distended, No Hepato-splenomegaly Extremities: No clubbing, No cyanosis, No edema Skin: No rashes, No breakdown Lymphatic: No Cervical, Supraclavicular, or Inguinal Adenopathy Neurological: Cranial nerves II-XII grossly intact, Neuro grossly intact Psych/Mental Status: Normal Affect, Appropriate Microbiology Past 72 Hours 04/20/20 19:45 Biopsy - Eye Gram Stain - Final 04/20/20 19:45 Biopsy - Eye Eye Culture - Final Streptococcus pneumoniae Staphylococcus aureus Klebsiella oxytoca Proprionibacterium acnes Staphylococcus epidermidis 04/20/20 19:45 Biopsy - Eye Anaerobic Culture - Preliminary Checking for anaerobes, further studies to follow. 04/20/20 21:15 Urine, Clean Catch Urine Culture - Final Culture exhibits no growth. 04/20/20 13:20 Blood Culture (Wb) - Anticubital Right Bacteria Detection (PCR) - Final 04/20/20 13:20 Blood Culture (Wb) - Anticubital Right Blood Culture - Preliminary Presumptive Micrococcus spp. 04/20/20 13:33 Blood Culture (Wb) - Right Hand Blood Culture - Preliminary No growth in 48 hours. 04/20/20 13:50 Urine, Clean Catch Urine Culture - Final Culture exhibits no growth. Laboratory Results 04/24/20 12:15: Sodium 139, Potassium 3.6, Chloride 105, Carbon Dioxide 29.0, Anion Gap 5, BUN 3 L, Creatinine 0.43 L, Estim Creat Clear Calc 203.88, Est GFR (MDRD) Af Amer 260, Est GFR (MDRD) Non-Af 215, BUN/Creatinine Ratio 7.0 L, Glucose 157 H, Calcium 7.3 L, Phosphorus 3.0 04/25/20 06:12: Sodium 139, Potassium 2.5 L*, Chloride 102, Carbon Dioxide 30.0, Anion Gap 7, BUN 3 L, Creatinine 0.41 L, Estim Creat Clear Calc 213.82, Est GFR (MDRD) Af Amer 275, Est GFR (MDRD) Non-Af 227, BUN/Creatinine Ratio 7.4 L, Glucose 125 H, Calcium 7.8 L, Phosphorus 2.4 L, Magnesium 1.6 Current Medications Albuterol Sulfate (Ventolin Aerosols) 2.5 mg INHALATION Q2H PRN PRN PRN Reason: SOB/Wheezing Bisacodyl (Dulcolax) 5 mg PO DAILY PRN PRN PRN Reason: Constipation Enoxaparin Sodium (Lovenox) 40 mg SC DAILY [facility] Last Admin: 04/24/20 11:52 Dose: 40 mg Documented by: Hydroxyzine Pamoate (Vistaril Pamoate Capsule) 50 mg PO Q4H PRN PRN PRN Reason: mild anxiety Ampicillin Sodium/Sulbactam (Sodium 3 gm/ Sodium Chloride) 112 mls @ 150 mls/hr IV Q8 [facility] Stop: 04/27/20 22:01 Last Infusion: 04/25/20 05:51 Dose: Infused Documented by: Sodium Chloride () 250 mls @ 15 mls/hr IV .[id number] PRN PRN Reason: Saline Flush Last Infusion: 04/24/20 12:25 Dose: Infused Documented by: Sodium Chloride () 250 mls @ 15 mls/hr IV .[id number] PRN PRN Reason: Additional IVPB Infusion Potassium Phosphate 30 mm/ (Sodium Chloride) 260 mls @ 42 mls/hr IV X1 ONE Stop: 04/25/20 17:56 Potassium Chloride () 10 meq in 100 mls @ 100 mls/hr IV BOLUS Q1H [facility] Stop: 04/25/20 11:44 Dextrose/Sodium Chloride (Dextrose 5%/0.9% Nacl) 1,000 mls @ 60 mls/hr IV .[id number] [facility] Last Admin: 04/25/20 07:34 Dose: 60 mls/hr Documented by: Lorazepam (Ativan) 2 mg PO Q2H PRN PRN; Protocol PRN Reason: CIWA score > 8 but <15 Lorazepam (Ativan) 2 mg PO UD PRN; Protocol PRN Reason: CIWA score >/=15. Lorazepam (Ativan) 2 mg IV Q2H PRN PRN; Protocol PRN Reason: CIWA score > 8 but <15 Lorazepam (Ativan) 2 mg IV UD PRN; Protocol PRN Reason: CIWA score >/=15. Metoprolol Tartrate (Lopressor (Beta Iftikhar)) 5 mg IV Q6 [facility] Last Admin: 04/25/20 05:07 Dose: 5 mg Documented by: Neomycin/Polymyxin/Dexamethasone (Maxitrol) 2 drop EACH EYE Q6 [facility] Stop: 04/28/20 18:01 Last Admin: 04/25/20 05:06 Dose: 2 drop Documented by: Prochlorperazine Edisylate (Compazine Iv) 5 mg IV Q4H PRN PRN PRN Reason: Breakthrough Nausea/Vomiting Quetiapine Fumarate (Seroquel) 400 mg PO BID [facility] Last Admin: 04/24/20 20:24 Dose: Not Given Documented by: Sodium Chloride () 10 - 40 ml IV UD PRN PRN Reason: SALINE FLUSH Last Admin: 04/25/20 05:06 Dose: 20 ml Documented by: Medical Necessity - Tobacco Use Smoking Status: Current every day smoker Tobacco Use: Cigarettes Assessment/Plan All Active Problems (Last Reviewed 04/20/20 @ 17:[address] Ттаьяна Gamble, DO) Urinary tract infection (Acute) Hypokalemia (Acute) Elevated CPK (Acute) Alcohol withdrawal (Acute) Severe sepsis (Acute) Alcoholic hepatitis (Acute) Hyponatremia (Acute) This is a 59 years old male patient presented to the emergency room because he was found on the floor by a neighbor, was not able to get up, was hallucinating and he was found to have severe sepsis secondary to acute cystitis and probable aspiration pneumonia, found to have acute alcohol withdrawal, admitted for medical stabilization and also found to have hypokalemia/hyponatremia/hypomagnesemia and elevated LFT. #1 severe sepsis: Secondary to UTI and pneumonia. He is on day 6 of IV Unasyn. He remained afebrile, WBC is almost normal. Heart rate has been around 110, blood pressure stable, pulse ox is 96% on 2 L. Urine culture showed no growth. Blood culture revealed presumptive micrococcus species, likely contaminant. Patient was kept on n.p.o. by speech therapy because of aspiration. Plan to continue same treatment, reevaluate by speech therapy, start appropriate diet if okay with speech therapy. #2 right basilar aspiration pneumonia: He is on day 6 of IV Unasyn as above. Chest x-ray reviewed, questionable faint right basilar infiltrate likely due to aspiration. He has been afebrile, leukocytosis resolved. Cultures reviewed as above. COVID-19 was negative. Plan to continue same treatment, stop Unasyn tomorrow. #3 acute cystitis: Urine culture showed no growth but remains on IV Unasyn as above. #4 Gram-positive bacteremia: Likely due to skin contamination. 1 bottle of blood culture revealed micrococcus species.. Remains on IV Unasyn as above. #4 acute alcohol withdrawal/questionable alcohol withdrawal seizure: Currently, he is on Ativan as needed, CIWA protocol. Phenobarbital taper discontinued because patient remained n.p.o. Today, he is alert, oriented, comfortable, still tachycardic. Plan to start him on IV folic acid and thiamine. #5 elevated LFTs/elevated creatinine kinase: Liver transaminases mainly elevated likely due to alcoholic hepatitis. Repeat creatinine kinase was trending down. Kidney function has been stable. #6 hyponatremia/hypokalemia/hypophosphatemia/hypomagnesemia: Likely due to refeeding syndrome. In spite of aggressive potassium replacement, today's potassium is again very low at 2.5. Serum phosphorus today is 2.4 and magnesium is 1.6. Currently, patient on IV potassium replacement as well as potassium phosphate replacement. Plan to repeat BMP, serum phosphorus and magnesium tomorrow morning. #7 bilateral conjunctivitis: Continue on Maxitrol eyedrops. #8 hypertension: At this time, blood pressure slightly elevated and he is tachycardic. He is on IV metoprolol every 6 hours scheduled. #9 hyperlipidemia: Keep holding statins. #10 depression/bipolar disorder: Plan to resume Prozac and quetiapine if cleared by speech therapy. #11 DVT prophylaxis, subcu Lovenox. This note was generated with [employer] dictation software. It may contain incorrect words, spelling, and punctuation that were not noted in checking the note before signing. Inpatient E&M: 02178 Subs Hosp L2
--- NOTE | 2020-04-25 09:34 | PCM.PN.INT ---
Subjective: Patient transferred out of the intensive care unit yesterday. Patient did okay overnight. Patient has remained n.p.o. at speech recommendations. Patient was interactive this morning and was able to note that he was in [place], but did not know that he was in the hospital. Nursing reported concerns of patient possibly having hallucinations overnight. General: Alert, Cooperative, No apparent distress, Disoriented, - - No conversational dyspnea. HEENT: Atraumatic, PERRLA, EOMI, Normocephalic, - - No scleral icterus, but slight injection noted Oral: Moist Mucosa, No Gingival or Mucosal Lesions/ Ulcerations Neck: Supple, No JVD, No Nodes, Trachea Midline Lungs: No rhonchi, No wheeze, No rales, Diminished, - - Symmetric expansion. No dullness to percussion. Cardiovascular: Normal S1, Normal S2, No murmurs, No rub noted, No Gallop, Tachycardic Abdomen: Bowel Sounds Present, Soft, Non Tender, Non-Distended, Obese Extremities: No clubbing, No cyanosis, No edema, Capillary Refill Less than 3 Seconds Skin: - - No change compared to previous Musculoskeletal: No Tenderness to Palpation of Joints or Extremities Lymphatic: No Cervical, Supraclavicular, or Inguinal Adenopathy Neurological: Cranial nerves II-XII grossly intact, Neuro grossly intact, Motor Exam 5/5 strength throughout Psych/Mental Status: Anxious, Impulsive Vital Signs Temp Pulse Resp BP Pulse Ox 37.2 C 113 H 16 156/94 H 91 04/25/20 05:00 04/25/20 06:43 04/25/20 05:00 04/25/20 05:00 04/25/20 06:56 Oxygen Flow Rate (L/min) 2 Oxygen Delivery Method Nasal Cannula Weight: 86.1 kg Body Mass Index (BMI) 24.5 Intake and Output for Last 24 Hours 04/23/20 04/24/20 04/25/20 23:59 23:59 23:59 Intake Total 4163.15 / 4244.75 4023.01 / 4023.01 1032.00 / 1032.00 Output Total 2375 / 2775 400 / 400 Balance 1788.15 / 1469.75 3623.01 / 3623.01 1032.00 / 1032.00 Labs (Last 48 Hours) 04/23/20 04/23/20 04/24/20 12:05 12:05 03:35 Sodium 139 138 Potassium 2.8 L 2.7 L* Chloride 103 103 Carbon Dioxide 30.0 30.0 Anion Gap 6 5 BUN 3 L 4 L Creatinine 0.43 L 0.39 L Estim Creat Clear Calc 203.88 224.79 Est GFR (MDRD) Af Amer 261 287 Est GFR (MDRD) Non-Af 216 237 BUN/Creatinine Ratio 7.0 L 10.2 Glucose 161 H 161 H Calcium 7.1 L 7.3 L Phosphorus 1.1 L* Magnesium 1.2 L 2.0 04/24/20 04/25/20 12:15 06:12 Sodium 139 139 Potassium 3.6 2.5 L* Chloride 105 102 Carbon Dioxide 29.0 30.0 Anion Gap 5 7 BUN 3 L 3 L Creatinine 0.43 L 0.41 L Estim Creat Clear Calc 203.88 213.82 Est GFR (MDRD) Af Amer 260 275 Est GFR (MDRD) Non-Af 215 227 BUN/Creatinine Ratio 7.0 L 7.4 L Glucose 157 H 125 H Calcium 7.3 L 7.8 L Phosphorus 3.0 2.4 L Magnesium 1.6 Microbiology 04/20/20 19:45 Biopsy - Eye Gram Stain - Final 04/20/20 19:45 Biopsy - Eye Eye Culture - Final Streptococcus pneumoniae Staphylococcus aureus Klebsiella oxytoca Proprionibacterium acnes Staphylococcus epidermidis 04/20/20 19:45 Biopsy - Eye Anaerobic Culture - Final No anaerobic bacteria isolated. 04/20/20 21:15 Urine, Clean Catch Urine Culture - Final Culture exhibits no growth. 04/20/20 13:20 Blood Culture (Wb) - Anticubital Right Bacteria Detection (PCR) - Final 04/20/20 13:20 Blood Culture (Wb) - Anticubital Right Blood Culture - Preliminary Presumptive Micrococcus spp. Medical Necessity - Tobacco Use Smoking Status: Current every day smoker Tobacco Use: Cigarettes Assessment/Plan All Active Problems (Last Reviewed 04/20/20 @ 17:[address] Татьяна Gamble DO) Urinary tract infection (Acute) Hypokalemia (Acute) Elevated CPK (Acute) Alcohol withdrawal (Acute) Severe sepsis (Acute) Alcoholic hepatitis (Acute) Hyponatremia (Acute) RECOMMENDATIONS: 1. Consider Haldol if needed for agitation overnight 2. Electrolyte repletion as indicated. Monitor for refeeding syndrome 3. Continue antimicrobials, pending infectious work-up. 4. Increase activity as tolerated IMPRESSIONS: 1. Acute alcohol withdrawal The patient was initially managed with phenobarbital and Ativan but continued to have high CIWA scores. Patient has been responded well to Precedex therapy. Patient does appear somewhat confused this morning, but directable. Could use IV Haldol overnight for hallucinations. Patient is significantly delayed from initial presentation, so alcohol withdrawal should be improving. Will need to monitor for refeeding syndrome with frequent electrolyte repletion. Thiamine and folate will be continued. Wean Precedex as tolerated. Electrolyte repletion as tolerated 2. Severe sepsis Clinical concern for right basilar pneumonia versus cystitis as potential sources of infection. The patient will be continued on empiric antimicrobials, while awaiting infectious work-up. He remains hemodynamically stable. Patient remains on eyedrops. Vision is reportedly normal and only mild scleral injection is noted. Anticipate 7 days of ocular antibiotics. Stop date has been added. 3. Elevated liver enzymes/CK Likely secondary to alcoholic hepatitis and immobility after being found down. Continue gentle IV fluid hydration. 4. Hypertension/hyperlipidemia/depression/bipolar disorder Complicates care, management, recovery and prognosis. Continue home medications as indicated. Physical therapy to evaluate the patient once medically stabilized. Continue to monitor mental status closely. Home Seroquel can be reinitiated once patient is able to pass swallow eval Inpatient E&M: 13648 [facility] Hosp L2
[2020-04-25] MEDS: Enoxaparin 40 MG/0.4 ML Syringe SC (09:43)
--- NOTE | 2020-04-25 14:53 | CASEMGMT ---
SW met with patient, introduced self and role at [facility]. SW asked patient if he thinks he will be fine to return home. SW told him it looks like he is requiring more assistance than normal. He said he will be fine as he has a lot of support from a neighbor and friends. WILD asked him if he would be open to home health where a nurse and therapy could come and see him at home. He said he would be in agreement with this. WILD and CECE CM to continue to follow. Chelsey GUNTER MSW
[2020-04-25 16:10] LABS: Anion Gap 7 (5-15); BUN 3 mg/dL (7-18); BUN/Creat Ratio 7.5 RATIO (10-20); Calcium,Total 7.8 mg/dL (8.5-10.1); Chloride 104 mmol/L (98-107); EST Glomerular Filtration Rate 231 mL/min (>60); Est Glom Filt Rate - Afr Amer 280 mL/min (>60); Estimated Creatinine Clearance 219.17 ml/min; Glucose 144 mg/dL (74-106); Potassium 2.6 mmol/L (3.5-5.1); Sodium Level 140 mmol/L (136-145)
[2020-04-25] MEDS: Phenobarbital 32.4 MG Tablet 64.8 MG PO ×2 (16:38→20:28)
[2020-04-25] MEDS: QUEtiapine 100 MG Tablet 400 MG PO (22:06)
[2020-04-26] VITALS (13 sets, daily range): BP systolic 114–158; BP diastolic 65–89; PULSE 99–120; RESP 16–18; TEMP 36.5–37.8; O2SAT 94–100
[2020-04-26] MEDS: Phenobarbital 32.4 MG Tablet 64.8 MG PO ×7 (00:07→23:53)
[2020-04-26] MEDS: Neomycin/Polymyxin/Dexameth 5ML OPTH.BTL 2 DRP EACH EYE ×5 (00:08→23:46)
[2020-04-26] MEDS: Dextrose 5%/0.9% NaCl 1,000 ML 60 ML IV ×2 (00:09→20:27)
[2020-04-26] MEDS: Metoprolol Tartrate 5 MG/5 ML Vial IV (00:42)
[2020-04-26] MEDS: Acetaminophen 325 MG Tablet 650 MG PO (06:18)
[2020-04-26 07:02] LABS: Anion Gap 6 (5-15); BUN 3 mg/dL (7-18); BUN/Creat Ratio 6.2 RATIO (10-20); Calcium,Total 7.6 mg/dL (8.5-10.1); Chloride 105 mmol/L (98-107); Creatinine, Serum 0.49 mg/dL (0.70-1.30); EST Glomerular Filtration Rate 185 mL/min (>60); Est Glom Filt Rate - Afr Amer 224 mL/min (>60); Estimated Creatinine Clearance 178.91 ml/min; Glucose 115 mg/dL (74-106); Magnesium 1.5 mg/dL (1.6-2.6); Phosphorus 3.6 mg/dL (2.5-4.9); Potassium 2.5 mmol/L (3.5-5.1); Sodium Level 140 mmol/L (136-145)
--- NOTE | 2020-04-26 08:54 | PCM.PROGNOTE ---
Patient Problems: Active and Suspected Problems (Last Reviewed 04/20/20 @ 17:[address] Татьяна Gamble, DO) Urinary tract infection (Acute) Hypokalemia (Acute) Elevated CPK (Acute) Alcohol withdrawal (Acute) Severe sepsis (Acute) due to PNA and UTI Alcoholic hepatitis (Acute) Hyponatremia (Acute) Seizure (Suspected) Subjective: Chief complaint: Follow-up after admission for severe sepsis secondary to acute cystitis, probable aspiration pneumonia, acute kidney injury, acute alcohol withdrawal with questionable alcohol withdrawal seizure. He developed severe hypokalemia, hypophosphatemia and hypomagnesemia. Patient seen and examined. No acute events overnight. Nursing staff reported that patient has no more hallucination. He has been alert and treated x3. He answers my questions appropriately and he was asking to go home. Denies significant complaints. He had a spike of low-grade fever of 100 Fahrenheit this morning, heart rate has been around 100, blood pressure stable, pulse ox is 96% on 2 L. - Physical Exam Vitals/I&O's: Vital Signs Temp Pulse Resp BP Pulse Ox 100.0 F H 100 18 114/65 96 04/26/20 04:16 04/26/20 07:29 04/26/20 04:16 04/26/20 04:16 04/26/20 08:07 Oxygen Flow Rate (L/min) 2 Oxygen Delivery Method Nasal Cannula Weight: 197 lb 8.547 oz Body Mass Index (BMI) 24.5 Intake and Output for Last 24 Hours 04/24/20 04/25/20 04/26/20 23:59 23:59 23:59 Intake Total 4023.01 / 4023.01 2777.20 / 2777.20 1347 / 1347 Output Total 400 / 400 500 / 500 Balance 3623.01 / 3623.01 2277.20 / 2277.20 1347 / 1347 General: Alert, Oriented x3, Cooperative, No apparent distress, - HEENT: Atraumatic, PERRLA, EOMI, Normocephalic Oral: Moist Mucosa, No Gingival or Mucosal Lesions/ Ulcerations Neck: Supple, No JVD, Negative Carotid Bruits, Trachea Midline, Thyroid Normal Size and Texture Lungs: No wheeze, No rales, Diminished, Rhonchi, - - Decreased breath sounds bilateral, scattered rhonchi. Cardiovascular: Regular rate, Regular Rhythm, Normal S1, Normal S2, PMI Normal, Tachycardic Abdomen: Bowel Sounds Present, Soft, Non Tender, Non-Distended, No Hepato-splenomegaly Extremities: No clubbing, No cyanosis, No edema Skin: No rashes, No breakdown Lymphatic: No Cervical, Supraclavicular, or Inguinal Adenopathy Neurological: Cranial nerves II-XII grossly intact, Neuro grossly intact Psych/Mental Status: Normal Affect, Appropriate Microbiology Past 72 Hours 04/20/20 13:20 Blood Culture (Wb) - Anticubital Right Bacteria Detection (PCR) - Final 04/20/20 13:20 Blood Culture (Wb) - Anticubital Right Blood Culture - Final Presumptive Micrococcus spp. 04/20/20 13:33 Blood Culture (Wb) - Right Hand Blood Culture - Final No growth in 5 days. 04/20/20 19:45 Biopsy - Eye Gram Stain - Final 04/20/20 19:45 Biopsy - Eye Eye Culture - Final Streptococcus pneumoniae Staphylococcus aureus Klebsiella oxytoca Proprionibacterium acnes Staphylococcus epidermidis 04/20/20 19:45 Biopsy - Eye Anaerobic Culture - Final No anaerobic bacteria isolated. 04/20/20 21:15 Urine, Clean Catch Urine Culture - Final Culture exhibits no growth. Laboratory Results 04/25/20 15:00: Sodium 140, Potassium 2.6 L*, Chloride 104, Carbon Dioxide 29.0, Anion Gap 7, BUN 3 L, Creatinine 0.40 L, Estim Creat Clear Calc 219.17, Est GFR (MDRD) Af Amer 280, Est GFR (MDRD) Non-Af 231, BUN/Creatinine Ratio 7.5 L, Glucose 144 H, Calcium 7.8 L 04/26/20 06:00: Sodium 140, Potassium 2.5 L*, Chloride 105, Carbon Dioxide 29.0, Anion Gap 6, BUN 3 L, Creatinine 0.49 L, Estim Creat Clear Calc 178.91, Est GFR (MDRD) Af Amer 224, Est GFR (MDRD) Non-Af 185, BUN/Creatinine Ratio 6.2 L, Glucose 115 H, Calcium 7.6 L, Phosphorus 3.6, Magnesium 1.5 L Current Medications Acetaminophen (Tylenol) 650 mg PO Q6H PRN PRN PRN Reason: TEMP > 100 Last Admin: 04/26/20 06:18 Dose: 650 mg Documented by: Albuterol Sulfate (Ventolin Aerosols) 2.5 mg INHALATION Q2H PRN PRN PRN Reason: SOB/Wheezing Bisacodyl (Dulcolax) 5 mg PO DAILY PRN PRN PRN Reason: Constipation Enoxaparin Sodium (Lovenox) 40 mg SC DAILY [facility] Last Admin: 04/25/20 09:43 Dose: 40 mg Documented by: Folic Acid (Folic Acid) 1 mg PO DAILY@0800 [facility] Hydroxyzine Pamoate (Vistaril Pamoate Capsule) 50 mg PO Q4H PRN PRN PRN Reason: mild anxiety Ampicillin Sodium/Sulbactam (Sodium 3 gm/ Sodium Chloride) 112 mls @ 150 mls/hr IV Q8 [facility] Stop: 04/27/20 22:01 Last Infusion: 04/26/20 07:02 Dose: Infused Documented by: Sodium Chloride () 250 mls @ 15 mls/hr IV .[id number] PRN PRN Reason: Saline Flush Last Infusion: 04/24/20 12:25 Dose: Infused Documented by: Sodium Chloride () 250 mls @ 15 mls/hr IV .[id number] PRN PRN Reason: Additional IVPB Infusion Dextrose/Sodium Chloride (Dextrose 5%/0.9% Nacl) 1,000 mls @ 60 mls/hr IV .[id number] [facility] Last Admin: 04/26/20 00:09 Dose: 60 mls/hr Documented by: Potassium Chloride () 10 meq in 100 mls @ 100 mls/hr IV BOLUS Q1H [facility] Stop: 04/26/20 12:14 Magnesium Sulfate () 4 gm in 100 mls @ 25 mls/hr IV X1 ONE Stop: 04/26/20 12:29 Potassium Chloride () 10 meq in 100 mls @ 100 mls/hr IV BOLUS Q1H [facility] Stop: 04/26/20 17:59 Metoprolol Succinate (Toprol Xl (Beta Iftikhar)) 50 mg PO DAILY [facility] Metoprolol Tartrate (Lopressor (Beta Iftikhar)) 5 mg IV Q8H PRN PRN Reason: for HR>110, Hold for sbp<110 Last Admin: 04/26/20 00:42 Dose: 5 mg Documented by: Neomycin/Polymyxin/Dexamethasone (Maxitrol) 2 drop EACH EYE Q6 [facility] Stop: 04/28/20 18:01 Last Admin: 04/26/20 06:21 Dose: 2 drop Documented by: Phenobarbital (Phenobarbital) 97.2 mg PO Q4H [facility]; Taper Stop: 04/29/20 23:59 Last Admin: 04/26/20 04:21 Dose: 97.2 mg Documented by: Potassium Chloride (K-Dur) 40 meq PO BIDCM [facility] Last Admin: 04/25/20 16:44 Dose: 40 meq Documented by: Prochlorperazine Edisylate (Compazine Iv) 5 mg IV Q4H PRN PRN PRN Reason: Breakthrough Nausea/Vomiting Quetiapine Fumarate (Seroquel) 400 mg PO BID [facility] Last Admin: 04/25/20 22:06 Dose: 400 mg Documented by: Sodium Chloride () 10 - 40 ml IV UD PRN PRN Reason: SALINE FLUSH Last Admin: 04/25/20 05:06 Dose: 20 ml Documented by: [facility] ([facility]itamin [facility]) [facility] Medical Necessity - Tobacco Use Smoking Status: Current every day smoker Tobacco Use: Cigarettes Assessment/Plan All Active Problems (Last Reviewed 04/20/20 @ 17:[address] Татьяна Gamble, DO) Urinary tract infection (Acute) Hypokalemia (Acute) Elevated CPK (Acute) Alcohol withdrawal (Acute) Severe sepsis (Acute) Alcoholic hepatitis (Acute) Hyponatremia (Acute) This is a 59 years old male patient presented to the emergency room because he was found on the floor by a neighbor, was not able to get up, was hallucinating and he was found to have severe sepsis secondary to acute cystitis and probable aspiration pneumonia, found to have acute alcohol withdrawal, admitted for medical stabilization and also found to have hypokalemia/hyponatremia/hypomagnesemia and elevated LFT. #1 severe sepsis: Secondary to UTI and pneumonia. He is on day 7 of IV Unasyn. He had a spike of low-grade fever this morning, WBC trending down. Urine culture showed no growth. Blood culture revealed presumptive micrococcus species, likely contaminant. Patient was started on diet by speech therapy. Plan: Continue same treatment, replace electrolytes appropriately, repeat CBC and BMP tomorrow morning, advance diet as per speech therapy. #2 right basilar aspiration pneumonia: He is on day 7 of IV Unasyn as above. Chest x-ray reviewed, questionable faint right basilar infiltrate likely due to aspiration. He has been afebrile, leukocytosis resolved. Cultures reviewed as above. COVID-19 was negative. Patient completed 1 week of IV Unasyn but because he had a spike of low-grade fever tomorrow, I will keep IV Unasyn for 1 more day, plan to DC IV insulin tomorrow morning. #3 acute cystitis: Urine culture showed no growth but remains on IV Unasyn as above. #4 Gram-positive bacteremia: Likely due to skin contamination. 1 bottle of blood culture revealed micrococcus species.. Remains on IV Unasyn as above. #4 acute alcohol withdrawal/questionable alcohol withdrawal seizure: Currently, he is on phenobarbital taper. He has normalization, is calm down, comfortable. Tachycardia has been improving once he started back on his metoprolol. He is on folic acid and thiamine. Plan to continue same treatment. #5 elevated LFTs/elevated creatinine kinase: Liver transaminases mainly elevated likely due to alcoholic hepatitis. Repeat creatinine kinase was trending down. Kidney function has been stable. #6 hyponatremia/hypokalemia/hypophosphatemia/hypomagnesemia: Again, potassium is very low this morning at 2.5, magnesium is 1.5. Serum phosphorus is 3.6 which is normal. This is attributed to refeeding syndrome. Plan to replace potassium with IV potassium chloride, replace magnesium with IV magnesium sulfate, repeat BMP and serum magnesium tomorrow morning. #7 bilateral conjunctivitis: Continue on Maxitrol eyedrops. #8 hypertension: Blood pressure stabilized, heart rate has been around 100, continue metoprolol. #9 hyperlipidemia: Resume statins. #10 depression/bipolar disorder: Continue Seroquel, resume Prozac. #11 DVT prophylaxis, subcu Lovenox. This note was generated with [employer] dictation software. It may contain incorrect words, spelling, and punctuation that were not noted in checking the note before signing. Inpatient E&M: 25267 Subs Hosp L2
--- NOTE | 2020-04-26 09:34 | PCM.PN.PUL ---
Patient Problems: Active and Suspected Problems (Last Reviewed 04/20/20 @ 17:[address] Татьяна Gamble, DO) Urinary tract infection (Acute) Hypokalemia (Acute) Elevated CPK (Acute) Alcohol withdrawal (Acute) Severe sepsis (Acute) due to PNA and UTI Alcoholic hepatitis (Acute) Hyponatremia (Acute) Seizure (Suspected) Subjective: Patient did okay overnight. Patient has not had any more hallucinations reported. Patient did have a low-grade fever and is requiring low-dose nasal cannula to maintain saturations. Objective: Patient continues to have significant hypokalemia - Physical Exam Vitals/I&O's: Vital Signs Temp Pulse Resp BP Pulse Ox 37.8 C H 100 18 114/65 96 04/26/20 04:16 04/26/20 07:29 04/26/20 04:16 04/26/20 04:16 04/26/20 08:07 Oxygen Flow Rate (L/min) 2 Oxygen Delivery Method Nasal Cannula Weight: 89.6 kg Body Mass Index (BMI) 24.5 Intake and Output for Last 24 Hours 04/24/20 04/25/20 04/26/20 23:59 23:59 23:59 Intake Total 4023.01 / 4023.01 2777.20 / 2777.20 1347 / 1347 Output Total 400 / 400 500 / 500 Balance 3623.01 / 3623.01 2277.20 / 2277.20 1347 / 1347 General: Alert, Oriented x3, Cooperative, No apparent distress, - - Appears older than stated age. No conversational dyspnea. HEENT: Atraumatic, PERRLA, EOMI, Normocephalic, - - Scleral injection without icterus Oral: Moist Mucosa, No Gingival or Mucosal Lesions/ Ulcerations Neck: Supple, No JVD, No Nodes, Trachea Midline Lungs: No wheeze, No rales, Diminished, Rhonchi - Scattered Cardiovascular: Normal S1, Normal S2, No murmurs, No rub noted, No Gallop, Tachycardic Abdomen: Bowel Sounds Present, Soft, Non Tender, Non-Distended, Obese Extremities: No clubbing, No cyanosis, No edema, Capillary Refill Less than 3 Seconds Skin: No rashes, No breakdown Musculoskeletal: No Tenderness to Palpation of Joints or Extremities Lymphatic: No Cervical, Supraclavicular, or Inguinal Adenopathy Neurological: Cranial nerves II-XII grossly intact, Neuro grossly intact, Motor Exam 5/5 strength throughout Psych/Mental Status: Normal Affect, Appropriate Microbiology Past 72 Hours 04/20/20 13:20 Blood Culture (Wb) - Anticubital Right Bacteria Detection (PCR) - Final 04/20/20 13:20 Blood Culture (Wb) - Anticubital Right Blood Culture - Final Presumptive Micrococcus spp. 04/20/20 13:33 Blood Culture (Wb) - Right Hand Blood Culture - Final No growth in 5 days. 04/20/20 19:45 Biopsy - Eye Gram Stain - Final 04/20/20 19:45 Biopsy - Eye Eye Culture - Final Streptococcus pneumoniae Staphylococcus aureus Klebsiella oxytoca Proprionibacterium acnes Staphylococcus epidermidis 04/20/20 19:45 Biopsy - Eye Anaerobic Culture - Final No anaerobic bacteria isolated. 04/20/20 21:15 Urine, Clean Catch Urine Culture - Final Culture exhibits no growth. Laboratory Results 04/25/20 15:00: Sodium 140, Potassium 2.6 L*, Chloride 104, Carbon Dioxide 29.0, Anion Gap 7, BUN 3 L, Creatinine 0.40 L, Estim Creat Clear Calc 219.17, Est GFR (MDRD) Af Amer 280, Est GFR (MDRD) Non-Af 231, BUN/Creatinine Ratio 7.5 L, Glucose 144 H, Calcium 7.8 L 04/26/20 06:00: Sodium 140, Potassium 2.5 L*, Chloride 105, Carbon Dioxide 29.0, Anion Gap 6, BUN 3 L, Creatinine 0.49 L, Estim Creat Clear Calc 178.91, Est GFR (MDRD) Af Amer 224, Est GFR (MDRD) Non-Af 185, BUN/Creatinine Ratio 6.2 L, Glucose 115 H, Calcium 7.6 L, Phosphorus 3.6, Magnesium 1.5 L Current Medications Acetaminophen (Tylenol) 650 mg PO Q6H PRN PRN PRN Reason: TEMP > 100 Last Admin: 04/26/20 06:18 Dose: 650 mg Documented by: Albuterol Sulfate (Ventolin Aerosols) 2.5 mg INHALATION Q2H PRN PRN PRN Reason: SOB/Wheezing Atorvastatin Calcium (Lipitor) 40 mg PO QHS [facility] Bisacodyl (Dulcolax) 5 mg PO DAILY PRN PRN PRN Reason: Constipation Enoxaparin Sodium (Lovenox) 40 mg SC DAILY [facility] Last Admin: 04/25/20 09:43 Dose: 40 mg Documented by: Fluoxetine HCl (Prozac) 60 mg PO DAILY [facility] Folic Acid (Folic Acid) 1 mg PO DAILY@0800 [facility] Hydroxyzine Pamoate (Vistaril Pamoate Capsule) 50 mg PO Q4H PRN PRN PRN Reason: mild anxiety Ampicillin Sodium/Sulbactam (Sodium 3 gm/ Sodium Chloride) 112 mls @ 150 mls/hr IV Q8 [facility] Stop: 04/27/20 22:01 Last Infusion: 04/26/20 07:02 Dose: Infused Documented by: Sodium Chloride () 250 mls @ 15 mls/hr IV .[id number] PRN PRN Reason: Saline Flush Last Infusion: 04/24/20 12:25 Dose: Infused Documented by: Sodium Chloride () 250 mls @ 15 mls/hr IV .[id number] PRN PRN Reason: Additional IVPB Infusion Dextrose/Sodium Chloride (Dextrose 5%/0.9% Nacl) 1,000 mls @ 60 mls/hr IV .[id number] [facility] Last Admin: 04/26/20 00:09 Dose: 60 mls/hr Documented by: Potassium Chloride () 10 meq in 100 mls @ 100 mls/hr IV BOLUS Q1H [facility] Stop: 04/26/20 12:14 Magnesium Sulfate () 4 gm in 100 mls @ 25 mls/hr IV X1 ONE Stop: 04/26/20 12:29 Potassium Chloride () 10 meq in 100 mls @ 100 mls/hr IV BOLUS Q1H [facility] Stop: 04/26/20 17:59 Metoprolol Succinate (Toprol Xl (Beta Iftikhar)) 50 mg PO DAILY [facility] Metoprolol Tartrate (Lopressor (Beta Iftikhar)) 5 mg IV Q8H PRN PRN Reason: for HR>110, Hold for sbp<110 Last Admin: 04/26/20 00:42 Dose: 5 mg Documented by: Neomycin/Polymyxin/Dexamethasone (Maxitrol) 2 drop EACH EYE Q6 [facility] Stop: 04/28/20 18:01 Last Admin: 04/26/20 06:21 Dose: 2 drop Documented by: Phenobarbital (Phenobarbital) 97.2 mg PO Q4H [facility]; Taper Stop: 04/29/20 23:59 Last Admin: 04/26/20 04:21 Dose: 97.2 mg Documented by: Potassium [facility] ([facility]) [facility] Last Admin: 04/25/20 16:44 Dose: 40 meq Documented by: Prochlorperazine Edisylate (Compazine Iv) 5 mg IV Q4H PRN PRN PRN Reason: Breakthrough Nausea/Vomiting Quetiapine Fumarate (Seroquel) 400 mg PO BID [facility] Last Admin: 04/25/20 22:06 Dose: 400 mg Documented by: Sodium Chloride () 10 - 40 ml IV UD PRN PRN Reason: SALINE FLUSH Last Admin: 04/25/20 05:06 Dose: 20 ml Documented by: Thiamine HCl (Vitamin B1) [facility] Medical Necessity - Tobacco Use Smoking Status: Current every day smoker Tobacco Use: Cigarettes Assessment/Plan All Active Problems (Last Reviewed 04/20/20 @ 17:[address] Татьяна Gamble, DO) Urinary tract infection (Acute) Hypokalemia (Acute) Elevated CPK (Acute) Alcohol withdrawal (Acute) Severe sepsis (Acute) Alcoholic hepatitis (Acute) Hyponatremia (Acute) RECOMMENDATIONS: 1. Consider Haldol if needed for agitation overnight 2. Electrolyte repletion as indicated. Continue to monitor for refeeding syndrome 3. Reasonable to complete a 7-day course of antibiotics 4. Increase activity as tolerated IMPRESSIONS: 1. Acute alcohol withdrawal The patient was initially managed with phenobarbital and Ativan but continued to have high CIWA scores. Patient has been responded well to Precedex therapy. Patient appears to be more appropriate this morning. Could use IV Haldol overnight for hallucinations. Patient is significantly delayed from initial presentation, so alcohol withdrawal should be improving. Will need to monitor for refeeding syndrome with frequent electrolyte repletion. Thiamine and folate will be continued. Wean Precedex as tolerated. Electrolyte repletion as tolerated 2. Severe sepsis Clinical concern for right basilar pneumonia versus cystitis as potential sources of infection. The patient will be continued on empiric antimicrobials, while awaiting infectious work-up. He remains hemodynamically stable. Patient remains on eyedrops. Vision is reportedly normal and only mild scleral injection is noted. Anticipate 7 days of antibiotics. Stop date has been added. Anticipate an element of hypoxia secondary to atelectasis. Encourage increase activity and incentive spirometer. If hypoxia persists, diuretic therapy may be helpful as patient is reportedly 17 L positive during hospitalization, but anticipate all output has not been accounted for. 3. Elevated liver enzymes/CK Likely secondary to alcoholic hepatitis and immobility after being found down. Continue gentle IV fluid hydration. 4. Hypertension/hyperlipidemia/depression/bipolar disorder Complicates care, management, recovery and prognosis. Continue home medications as indicated. Physical therapy to evaluate the patient once medically stabilized. Continue to monitor mental status closely. Home Seroquel can be reinitiated once patient is able to pass swallow eval Inpatient E&M: [id number] Subs Hosp L2
[2020-04-26] MEDS: Folic Acid 1 MG Tablet PO (10:41)
[2020-04-26] MEDS: Potassium Chloride 10mEq/100mL 10 MEQ/100 ML IV.SOLN. 100 MEQ IV BOLUS ×8 (10:42→23:50)
[2020-04-26] MEDS: Magnesium Sulfate 4gm/100mL 4 GM/100 ML IV.SOLN. IV (10:42)
[2020-04-26] MEDS: Thiamine Hydrochloride 100 MG Tablet PO (10:42)
[2020-04-26] MEDS: Enoxaparin 40 MG/0.4 ML Syringe SC (10:43)
[2020-04-26] MEDS: QUEtiapine 100 MG Tablet 400 MG PO ×2 (10:43→21:22)
[2020-04-26] MEDS: FLUoxetine 20 MG Capsule 60 MG PO (10:43)
[2020-04-26] MEDS: Metoprolol(XL)Succ 50 MG Tablet PO (10:44)
[2020-04-26] MEDS: 0.9% Saline Lock 10 ML Syringe IV ×2 (19:03→22:53)
[2020-04-26] MEDS: Atorvastatin Calcium 40 MG Tablet PO (21:22)
[2020-04-27] VITALS (10 sets, daily range): BP systolic 132–142; BP diastolic 84–85; PULSE 93–114; RESP 16; TEMP 36.8–37.1; O2SAT 92–99
[2020-04-27] MEDS: Acetaminophen 325 MG Tablet 650 MG PO (01:46)
[2020-04-27] MEDS: Phenobarbital 32.4 MG Tablet 64.8 MG PO ×2 (04:22→08:23)
[2020-04-27] MEDS: Menthol/Lanolin/Calamine/Znox 113 GM Tube 1 APPLIC TOPICAL (06:13)
[2020-04-27] MEDS: Neomycin/Polymyxin/Dexameth 5ML OPTH.BTL 2 DRP EACH EYE (06:13)
[2020-04-27 06:47] LABS: Absolute Lymphocyte Count 1.93 X10^3/uL (0.83-4.51); Absolute Neutrophil Count 3.3 X10^3/uL (2.0-7.7); Basophil# 0.03 X10^3/uL; Basophil% 0.5 % (0-1); Eosinophil# 0.17 X10^3/uL; Eosinophils% 2.7 % (0-5); Hematocrit 29.6 % (40-54); Hemoglobin 9.6 g/dL (13.0-16.5); Lymphocyte # 1.93 X10^3/ul (4.0); Lymphocyte % 30.9 % (19-41); Mean Corp Hgb Conc 32.4 g/dL (32-36); Mean Corpuscular Hgb 33.3 pg (27.0-32.0); Mean Corpuscular Volume 102.8 fL (80-94); Mean Platelet Vol. 9.8 fl (6.2-12.0); Monocyte# 0.79 X10^3/uL; Monocyte% 12.7 % (0-10); NRBC Flagged by Analyzer 0 % (0-5); Neutrophil # 3.28 X10^3/uL (2.7-7.7); Neutrophil % 52.6 % (47-70); Platelet Count 275 K/mm3 (150-450); RBC Distribution Width CV 14.3 % (11.6-14.6); RBC Distribution Width SD 53.3 fl (35.1-43.9); Red Blood Count 2.88 M/mm3 (4.6-6.2); White Blood Count 6.2 K/mm3 (4.4-11.0)
[2020-04-27 07:06] LABS: Anion Gap 6 (5-15); BUN 2 mg/dL (7-18); BUN/Creat Ratio 4.9 RATIO (10-20); Calcium,Total 8.1 mg/dL (8.5-10.1); Chloride 103 mmol/L (98-107); Creatinine, Serum 0.41 mg/dL (0.70-1.30); EST Glomerular Filtration Rate 227 mL/min (>60); Est Glom Filt Rate - Afr Amer 274 mL/min (>60); Estimated Creatinine Clearance 213.82 ml/min; Glucose 96 mg/dL (74-106); Magnesium 1.7 mg/dL (1.6-2.6); Sodium Level 139 mmol/L (136-145)
--- NOTE | 2020-04-27 07:51 | PCM.PN.PUL ---
Patient Problems: Active and Suspected Problems (Last Reviewed 04/20/20 @ 17:[address] Татьяна Gamble, DO) Urinary tract infection (Acute) Hypokalemia (Acute) Elevated CPK (Acute) Alcohol withdrawal (Acute) Severe sepsis (Acute) due to PNA and UTI Alcoholic hepatitis (Acute) Hyponatremia (Acute) Seizure (Suspected) Subjective: Patient much more appropriate today. Patient states that he is feeling well and is denying any chest pain, abdominal pain, nausea or vomiting. Patient states he slept well overnight - Physical Exam Vitals/I&O's: Vital Signs Temp Pulse Resp BP Pulse Ox 36.9 C 96 16 140/84 H 92 04/27/20 05:00 04/27/20 07:00 04/27/20 05:03 04/27/20 05:00 04/27/20 05:03 Oxygen Flow Rate (L/min) 2 Oxygen Delivery Method Room Air Weight: 86.8 kg Body Mass Index (BMI) 24.5 Intake and Output for Last 24 Hours 04/25/20 04/26/20 04/27/20 23:59 23:59 23:59 Intake Total 2777.20 / 2777.20 4811 / 4811 212 / 212 Output Total 500 / 500 1300 / 1300 Balance 2277.20 / 2277.20 4811 / 3811 -1088 / -1088 General: Alert, Oriented x3, Cooperative, No apparent distress, Well developed, Well nourished HEENT: Atraumatic, PERRLA, EOMI, Normocephalic, - - No scleral icterus or injection noted Oral: Moist Mucosa, No Gingival or Mucosal Lesions/ Ulcerations Neck: Supple, No JVD, No Nodes, Trachea Midline Lungs: No rhonchi, No wheeze, Diminished, Rales - Bilateral bases, - - Symmetric expansion Cardiovascular: Regular rate, Regular Rhythm, Normal S1, Normal S2, No murmurs, No rub noted, No Gallop Abdomen: Bowel Sounds Present, Soft, Non Tender, Non-Distended Extremities: No clubbing, No cyanosis, Capillary Refill Less than 3 Seconds Skin: - - No change compared to previous Musculoskeletal: No Tenderness to Palpation of Joints or Extremities Lymphatic: No Cervical, Supraclavicular, or Inguinal Adenopathy Neurological: Cranial nerves II-XII grossly intact, Neuro grossly intact, Motor Exam 5/5 strength throughout Psych/Mental Status: Alert and oriented to time, place, person, mood and affect Microbiology Past 72 Hours 04/20/20 13:20 Blood Culture (Wb) - Anticubital Right Bacteria Detection (PCR) - Final 04/20/20 13:20 Blood Culture (Wb) - Anticubital Right Blood Culture - Final Presumptive Micrococcus spp. 04/20/20 13:33 Blood Culture (Wb) - Right Hand Blood Culture - Final No growth in 5 days. 04/20/20 19:45 Biopsy - Eye Gram Stain - Final 04/20/20 19:45 Biopsy - Eye Eye Culture - Final Streptococcus pneumoniae Staphylococcus aureus Klebsiella oxytoca Proprionibacterium acnes Staphylococcus epidermidis 04/20/20 19:45 Biopsy - Eye Anaerobic Culture - Final No anaerobic bacteria isolated. Laboratory Results 04/27/20 06:26: WBC 6.2, RBC 2.88 L, Hgb 9.6 L, Hct 29.6 L, MCV 102.8 H, MCH 33.3 H, MCHC 32.4, RDW Std Deviation 53.3 H, RDW Coeff of William 14.3, Plt Count 275, MPV 9.8, Immature Gran % (Auto) 0.600, Neut % (Auto) 52.6, Lymph % (Auto) 30.9, Harrison % (Auto) 12.7 H, Eos % (Auto) 2.7, Baso % (Auto) 0.5, Absolute Neuts (auto) 3.3, Absolute Lymphs (auto) 1.93, Nucleated RBC % 0 04/27/20 06:26: Sodium 139, Potassium 3.0 L, Chloride 103, Carbon Dioxide 30.0, Anion Gap 6, BUN 2 L, Creatinine 0.41 L, Estim Creat Clear Calc 213.82, Est GFR (MDRD) Af Amer 274, Est GFR (MDRD) Non-Af 227, BUN/Creatinine Ratio 4.9 L, Glucose 96, Calcium 8.1 L, Magnesium 1.7 Current Medications Acetaminophen (Tylenol) 650 mg PO Q6H PRN PRN PRN Reason: TEMP > 100 Last Admin: 04/27/20 01:46 Dose: 650 mg Documented by: Albuterol Sulfate (Ventolin Aerosols) 2.5 mg INHALATION Q2H PRN PRN PRN Reason: SOB/Wheezing Atorvastatin Calcium (Lipitor) 40 mg PO QHS [facility] Last Admin: 04/26/20 21:22 Dose: 40 mg Documented by: Bisacodyl (Dulcolax) 5 mg PO DAILY PRN PRN PRN Reason: Constipation Calamine/Phenol (Calmoseptine Ointment) 1 applic TOPICAL TID [facility]; Protocol Last Admin: 04/27/20 06:13 Dose: 1 applicatio Documented by: Enoxaparin Sodium (Lovenox) 40 mg SC DAILY [facility] [place] Last Admin: 04/26/20 10:43 Dose: 40 mg Documented by: Fluoxetine HCl (Prozac) 60 mg PO DAILY [facility] [place] Last Admin: 04/26/20 10:43 Dose: 60 mg Documented by: Folic Acid (Folic Acid) 1 mg PO DAILY@0800 [facility] [place] Last Admin: 04/26/20 10:41 Dose: 1 mg Documented by: Hydroxyzine Pamoate (Vistaril Pamoate Capsule) 50 mg PO Q4H PRN PRN PRN Reason: mild anxiety Ampicillin Sodium/Sulbactam (Sodium 3 gm/ Sodium Chloride) 112 mls @ 150 mls/hr IV Q8 [facility] [place] Stop: 04/27/20 22:01 Last Infusion: 04/27/20 06:36 Dose: Infused Documented by: Sodium Chloride () 250 mls @ 15 mls/hr IV .[id number] PRN PRN Reason: Saline Flush Last Infusion: 04/24/20 12:25 Dose: Infused Documented by: Sodium Chloride () 250 mls @ 15 mls/hr IV .[id number] PRN PRN Reason: Additional IVPB Infusion Dextrose/Sodium Chloride (Dextrose 5%/0.9% Nacl) 1,000 mls @ 60 mls/hr IV .[id number] [facility] [place] Last Admin: 04/26/20 20:27 Dose: 60 mls/hr Documented by: Potassium Chloride () 10 meq in 100 mls @ 100 mls/hr IV BOLUS Q1H [facility] [place] Stop: 04/27/20 11:44 Metoprolol Succinate (Toprol Xl (Beta Iftikhar)) 50 mg PO DAILY [facility] Last Admin: 04/26/20 10:44 Dose: 50 mg Documented by: Metoprolol Tartrate (Lopressor (Beta Iftikhar)) 5 mg IV Q8H PRN PRN Reason: for HR>110, Hold for sbp<110 Last Admin: 04/26/20 00:42 Dose: 5 mg Documented by: Neomycin/Polymyxin/Dexamethasone (Maxitrol) 2 drop EACH EYE Q6 [facility] Stop: 04/28/20 18:01 Last Admin: 04/27/20 06:13 Dose: 2 drop Documented by: Phenobarbital (Phenobarbital) 64.8 mg PO Q4H [facility] [place]; Taper Stop: 04/29/20 23:59 Last Admin: 04/27/20 04:22 Dose: 64.8 mg Documented by: [facility] Last Admin: 04/26/20 17:53 Dose: 40 meq Documented by: Prochlorperazine Edisylate (Compazine Iv) 5 mg IV Q4H PRN PRN PRN Reason: Breakthrough Nausea/Vomiting Quetiapine Fumarate (Seroquel) 400 mg PO BID [facility] [place] Last Admin: 04/26/20 21:22 Dose: 400 mg Documented by: Sodium Chloride () 10 - 40 ml IV UD PRN PRN Reason: SALINE FLUSH Last Admin: 04/26/20 22:53 Dose: 10 ml Documented by: Th[facility]) [facility] Last Admin: 04/26/20 10:42 Dose: 100 mg Documented by: Medical Necessity - Tobacco Use Smoking Status: Current every day smoker Tobacco Use: Cigarettes Assessment/Plan All Active Problems (Last Reviewed 04/20/20 @ 17:[address] Татьяна Gamble, DO) Urinary tract infection (Acute) Hypokalemia (Acute) Elevated CPK (Acute) Alcohol withdrawal (Acute) Severe sepsis (Acute) Alcoholic hepatitis (Acute) Hyponatremia (Acute) RECOMMENDATIONS: 1. Consider Haldol if needed for agitation overnight 2. Continue aggressive electrolyte repletion as indicated. Will order additional potassium (hospitalist supplementation noted) 3. Reasonable to complete a 7-day course of antibiotics 4. Increase activity as tolerated IMPRESSIONS: 1. Acute alcohol withdrawal The patient was initially managed with phenobarbital and Ativan but continued to have high CIWA scores. Patient has been responded well to Precedex therapy. Patient appears to be at baseline this morning. Could use IV Haldol overnight for hallucinations. Patient is significantly delayed from initial presentation, so alcohol withdrawal should be resolved. Will need to monitor for refeeding syndrome with frequent electrolyte repletion. Patient has required 80+ milliequivalents of IV potassium daily for over 5 days. Will order additional IV potassium in addition to oral potassium. Patient does have renal function and should excrete excess. Electrolyte repletion as tolerated 2. Severe sepsis Clinical concern for right basilar pneumonia versus cystitis as potential sources of infection. The patient will be continued on empiric antimicrobials, while awaiting infectious work-up. He remains hemodynamically stable. Patient remains on eyedrops. Vision is reportedly normal and only mild scleral injection is noted. Anticipate 7 days of antibiotics. Stop date has been added. Anticipate an element of hypoxia secondary to atelectasis. Encourage increase activity and incentive spirometer. If hypoxia persists, diuretic therapy may be helpful as patient is reportedly 17 L positive during hospitalization, but anticipate all output has not been accounted for. Given patient has improved with incentive spirometer, atelectasis is most likely etiology. 3. Elevated liver enzymes/CK Likely secondary to alcoholic hepatitis and immobility after being found down. 4. Hypertension/hyperlipidemia/depression/bipolar disorder Complicates care, management, recovery and prognosis. Continue home medications as indicated. Physical therapy to evaluate the patient once medically stabilized. Continue to monitor mental status closely. Home Seroquel can be reinitiated once patient is able to pass swallow eval Inpatient E&M: [id number] [facility] L2
[2020-04-27] MEDS: Folic Acid 1 MG Tablet PO (08:19)
[2020-04-27] MEDS: FLUoxetine 20 MG Capsule 60 MG PO (08:20)
[2020-04-27] MEDS: QUEtiapine 100 MG Tablet 400 MG PO (08:20)
[2020-04-27] MEDS: Thiamine Hydrochloride 100 MG Tablet PO (08:20)
[2020-04-27] MEDS: Metoprolol(XL)Succ 50 MG Tablet PO (08:21)
[2020-04-27] MEDS: Potassium Chloride 10mEq/100mL 10 MEQ/100 ML IV.SOLN. 100 MEQ IV BOLUS ×4 (08:36→11:39)
--- NOTE | 2020-04-27 09:15 | CASEMGMT ---
Addendum entered by Caroline Lee 04/27/20 12:41: Call received from Jade @ [facility]. They are able to accept pt w/start of care being tomorrow Sat 04/28. Pt made aware. Original Note: CECE SMITH NOTE: Pt being discharged today and is agreeable to [facility]. Pt has been provided list of local [facility] agencies, he denies preference, and is agreeable to [facility]. Call placed to Erica at [facility] and referral made for SN, PT/OT. Awaiting acceptance. Pt states he has all the DME he needs, stating he even has a walker, but does not like to use it often because of his small apartment. He lives alone. He feels he is safe to be able to return home and able to take care of himself. He denies having concerns w/returning home @ discharge. Pt made aware to ask for CM if any needs, questions, concerns arise. Pt voices understanding. Tramaine LAGUNAS RN, CM
--- NOTE | 2020-04-27 09:36 | PCM.DC ---
- Discharge Diagnoses Current Active Problems: Current Active and Chronic Problems (Last Reviewed 04/20/20 @ 17:[address] Татьяна Gamble DO) Urinary tract infection (Acute) Hypokalemia (Acute) Elevated CPK (Acute) Alcohol withdrawal (Acute) Severe sepsis (Acute) due to PNA and UTI Alcoholic hepatitis (Acute) Bipolar disorder (Chronic) Tobacco dependence (Chronic) EtOH dependence (Chronic) Hyponatremia (Acute) You will use the following diet at home:: Cardiac Your food should be the consistency of: Regular Discharge Activity: Return to Normal Activity Weight Bearing Status: Weight bearing as tolerated Call your doctor if you observe: Fever of 101 or Higher, Shortness of breath, Dizziness, Fainting spells, Chest pain, Increased palpitations (irregular heartbeat), Uncontrolled pain Instructions: Alcoholism: How to be Part of the Solution, Recovering from Addiction: Continuing with Counseling, Recovering from Addiction: Coping with Relapse Allergies/Adverse Reactions: Allergies lisinopril Allergy (Verified 04/20/20 12:54) Angioedema peanut Allergy (Verified 04/20/20 12:54) Hives Medications to take at Discharge Fluoxetine [Prozac] 60 mg PO DAILY 08/06/15 Quetiapine Fumarate [Quetiapine Fumarate ER] 800 mg PO QHS 01/05/20 Atorvastatin Calcium [Lipitor] 40 mg PO DAILY 03/26/20 Metoprolol Succinate [Toprol Xl] 50 mg PO DAILY 03/26/20 Folic Acid 1 mg PO DAILY@0800 #30 tab 04/27/20 Multivitamin 1 tab PO DAILY #90 tab 04/27/20 Potassium Chloride [K-Dur] 20 meq PO DAILY #7 tab 04/27/20 Thiamine Hydrochloride [Vitamin B1] 100 mg PO DAILYCM #30 tab 04/27/20 The following prescriptions were given: Folic Acid 1 mg PO DAILY@0800 #30 tab Transmission Status: Pending to [facility] [id number] Potassium Chloride [K-Dur] 20 meq PO DAILY #7 tab Transmission Status: Pending to [facility] [id number] Multivitamin 1 tab PO DAILY #90 tab Transmission Status: Pending to [facility] [id number] Thiamine Hydrochloride [Vitamin B1] 100 mg PO DAILYCM #30 tab Transmission Status: Pending to [facility] [id number] Primary Care Physician: Thania Herrmann MD [Primary Care Provider] - Please follow up with your Primary Care Physician in: 1 week. Test Results: Test results from this visit will be discussed in further detail at your follow-up appointment, if applicable.
--- NOTE | 2020-04-27 11:20 | DS.PCM_ITS ---
Discharge Date and Diagnosis - Problem List Patient Problems: Active and Suspected Problems (Last Reviewed 04/20/20 @ 17:[address] Татьяна Gamble DO) Urinary tract infection (Acute) Hypokalemia (Acute) Elevated CPK (Acute) Alcohol withdrawal (Acute) Severe sepsis (Acute) due to PNA and UTI Alcoholic hepatitis (Acute) Hyponatremia (Acute) Seizure (Suspected) Date of Admission: 04/20/20 Date of Discharge: 04/27/20 - Primary Discharge Diagnosis Acute Problems: Active Problems (Last Reviewed 04/20/20 @ 17:[address] Татьяна Gamble DO) #1 severe sepsis. #2 right basilar aspiration pneumonia. #3 acute alcohol withdrawal/questionable alcohol withdrawal seizure. #4 alcoholic hepatitis/mild rhabdomyolysis. #5 hyponatremia/hypokalemia/hypophosphatemia/hypomagnesemia. #6 polymicrobial bilateral conjunctivitis. #7 bacteremia, 1 bottle of blood culture was positive and felt to be skin contamination. Suspected Problems: Suspected Problems (Last Reviewed 04/20/20 @ 17:[address] Татьяна Gamble DO) Seizure (Suspected) - Secondary Discharge Diagnosis Chronic Problems: Chronic Problems (Last Reviewed 04/20/20 @ 17:[address] Татьяна Gamble DO) Hypertension (Chronic) Hyperlipidemia (Chronic) Bipolar disorder (Chronic) Tobacco dependence (Chronic) EtOH dependence (Chronic) Hospital Course and Treatment Imaging Results: Clinical Impression(s) from Imaging Studies Brain CT 04/20/20 13:08 IMPRESSION: Stable chronic ischemic and atrophic changes. No acute intracranial abnormality. Electronically Signed: Hever Bear, at 15:24 EDT Tel , Service support , Cervical Spine CT 04/20/20 13:10 IMPRESSION: No fracture or dislocation in the cervical spine. Stable mild degenerative change. Straightening of the normal cervical lordosis which may be due to paraspinal muscle spasm or may be positional in nature. Electronically Signed: Hever Bear, at 15:29 EDT Tel , Service support , Chest X-Ray 04/20/20 15:00 IMPRESSION: Linear opacity in the right lung base which likely represents atelectasis. Otherwise, clear lungs. Electronically Signed: Hever Bear, at 15:24 EDT Tel , Service support , Dr. Jackson/Dr. Vela, critical care Operations: None Procedures: EKG Summary of Care Provided: Patient seen and examined on the day of discharge and appeared to be stable to be discharged home. He denied any complaints. He was sitting comfortably, no restlessness or anxiety. His vital signs were stable. This is a 59 years old male patient presented to the emergency room because he was found on the floor by a neighbor, was not able to get up, was hallucinating and he was found to have severe sepsis secondary to aspiration pneumonia, found to have acute alcohol withdrawal, admitted for medical stabilization and also found to have hypokalemia/hyponatremia/hypomagnesemia and elevated LFT. #1 severe sepsis: Secondary to pneumonia. Acute cystitis ruled out. Patient was treated with IV Unasyn, he received total of 8 days of IV Unasyn. He is on day 7 of IV Unasyn. He remained afebrile, leukocytosis resolved. 1 bottle of blood culture revealed presumptive micrococcus species which is likely skin contamination. The other blood culture showed no growth in 5 days. Urine culture showed no growth. Patient completed 8 days of IV antibiotics and discharged without antibiotics. #2 right basilar aspiration pneumonia: Received a total of 8 days of IV Unasyn as above. Chest x-ray reviewed, questionable faint right basilar infiltrate likely due to aspiration. He has been afebrile, leukocytosis resolved. Cultures reviewed as above. COVID-19 was negative. No antibiotic given upon discharge. #3 acute cystitis: Her without, urine culture was negative x2. #4 Gram-positive bacteremia: Likely due to skin contamination. 1 bottle of blood culture revealed micrococcus species. The other bottle of blood culture showed no growth in 5 days. #4 acute alcohol withdrawal/questionable alcohol withdrawal seizure: Initially, patient was admitted to the intensive care unit, started on phenobarbital taper. He became very agitated and restlessness, was started on IV Precedex drip. Later, patient was transferred to PCU, started back on phenobarbital drip as well as Ativan. Also, he was treated with primary folic acid supplement. Patient symptoms of anxiety, agitation and restlessness slowly improved. Finall y he was able to calm down, sit comfortably and had no more withdrawal symptoms. Heart rate stabilized as well as blood pressure. Patient discharged on folic acid, thiamine and multivitamins. #5 elevated LFTs/elevated creatinine kinase: Liver transaminases mainly elevated likely due to alcoholic hepatitis. Treated with IV fluids and creatinine kinase trended down. His kidney function was normal. #6 hyponatremia/hypokalemia/hypophosphatemia/hypomagnesemia: Patient received aggressive replacement of his potassium, sodium, phosphorus and magnesium. This is attributed to refeeding syndrome. Sodium, potassium and phosphorus replaced and corrected. His potassium remained on the lower side although it is improved. Patient discharged home on potassium supplement. #7 bilateral conjunctivitis: Completed treatment with Maxitrol eyedrops for 6 days. #8 hypertension: Blood pressure stabilized, discharged on metoprolol as before. #9 hyperlipidemia: Continue with on statins. #10 depression/bipolar disorder: Continued on Seroquel and Prozac. Patient discharged home with home health in a stable medical condition, discharged on thiamine, folic acid and multivitamins, no antibiotic given upon discharge because he received total of 8 days of IV Unasyn for pneumonia and 6 days of Maxitrol eyedrops for conjunctivitis, continued on his previous home medications without any changes, counseled about his drinking behavior and stressed the importance of quitting or at least cutting back on his drinking, recommended follow-up with PCP in 1 week. This note was generated with [employer] dictation software. It may contain incorrect words, spelling, and punctuation that were not noted in checking the note before signing. Patient Problems: Active and Suspected Problems (Last Reviewed 04/20/20 @ 17:[address] Татьяна Gamble DO) Urinary tract infection (Acute) Hypokalemia (Acute) Elevated CPK (Acute) Alcohol withdrawal (Acute) Severe sepsis (Acute) due to PNA and UTI Alcoholic hepatitis (Acute) Hyponatremia (Acute) Seizure (Suspected) - Physical Exam Vitals/I&O's: Vital Signs Temp Pulse Resp BP Pulse Ox 98.3 F 99 16 132/84 H 95 04/27/20 08:17 04/27/20 08:21 04/27/20 08:17 04/27/20 08:17 04/27/20 08:19 Oxygen Flow Rate (L/min) 2 Oxygen Delivery Method Room Air Weight: 191 lb 5.78 oz Body Mass Index (BMI) 24.5 Intake and Output for Last 24 Hours 04/25/20 04/26/20 04/27/20 23:59 23:59 23:59 Intake Total 2777.20 / 2777.20 4811 / 4811 1140.33 / 1140.33 Output Total 500 / 500 1300 / 1300 Balance 2277.20 / 2277.20 4811 / 3811 -159.67 / -159.67 General: Alert, Oriented x3, Cooperative, No apparent distress HEENT: Atraumatic, PERRLA, EOMI, Normocephalic Oral: Moist Mucosa, No Gingival or Mucosal Lesions/ Ulcerations Neck: Supple, No JVD, Negative Carotid Bruits, Trachea Midline, Thyroid Normal Size and Texture Lungs: Clear to auscultation, Normal air movement, No rhonchi, No wheeze, No rales, Diminished Cardiovascular: Regular rate, Regular Rhythm, Normal S1, Normal S2, PMI Normal Abdomen: Bowel Sounds Present, Soft, Non Tender, Non-Distended, No Hepato- splenomegaly Extremities: No clubbing, No cyanosis, No edema Skin: No rashes, No breakdown Lymphatic: No Cervical, Supraclavicular, or Inguinal Adenopathy Neurological: Cranial nerves II-XII grossly intact, Neuro grossly intact Psych/Mental Status: Normal Affect, Appropriate Microbiology Past 72 Hours 04/20/20 13:20 Blood Culture (Wb) - Anticubital Right Bacteria Detection (PCR) - Final 04/20/20 13:20 Blood Culture (Wb) - Anticubital Right Blood Culture - Final Presumptive Micrococcus spp. 04/20/20 13:33 Blood Culture (Wb) - Right Hand Blood Culture - Final No growth in 5 days. 04/20/20 19:45 Biopsy - Eye Gram Stain - Final 04/20/20 19:45 Biopsy - Eye Eye Culture - Final Streptococcus pneumoniae Staphylococcus aureus Klebsiella oxytoca Proprionibacterium acnes Staphylococcus epidermidis 04/20/20 19:45 Biopsy - Eye Anaerobic Culture - Final No anaerobic bacteria isolated. Laboratory Results 04/27/20 06:26: WBC 6.2, RBC 2.88 L, Hgb 9.6 L, Hct 29.6 L, MCV 102.8 H, MCH 33.3 H, MCHC 32.4, RDW Std Deviation 53.3 H, RDW Coeff of William 14.3, Plt Count 275, MPV 9.8, Immature Gran % (Auto) 0.600, Neut % (Auto) 52.6, Lymph % (Auto) 30.9, Treasure % (Auto) 12.7 H, Eos % (Auto) 2.7, Baso % (Auto) 0.5, Absolute Neuts (auto) 3.3, Absolute Lymphs (auto) 1.93, Nucleated RBC % 0 04/27/20 06:26: Sodium 139, Potassium 3.0 L, Chloride 103, Carbon Dioxide 30.0, Anion Gap 6, BUN 2 L, Creatinine 0.41 L, Estim Creat Clear Calc 213.82, Est GFR (MDRD) Af Amer 274, Est GFR (MDRD) Non-Af 227, BUN/Creatinine Ratio 4.9 L, Glucose 96, Calcium 8.1 L, Magnesium 1.7 Current Medications Acetaminophen (Tylenol) 650 mg PO Q6H PRN PRN PRN Reason: TEMP > 100 Last Admin: 04/27/20 01:46 Dose: 650 mg Documented by: Albuterol Sulfate (Ventolin Aerosols) 2.5 mg INHALATION Q2H PRN PRN PRN Reason: SOB/Wheezing Atorvastatin Calcium (Lipitor) 40 mg PO QHS [facility] Last Admin: 04/26/20 21:22 Dose: 40 mg Documented by: Bisacodyl (Dulcolax) 5 mg PO DAILY PRN PRN PRN Reason: Constipation Calamine/Phenol (Calmoseptine Ointment) 1 applic TOPICAL TID [facility]; Protocol Last Admin: 04/27/20 06:13 Dose: 1 applicatio Documented by: Enoxaparin Sodium (Lovenox) 40 mg SC DAILY [facility] Last Admin: 04/27/20 08:22 Dose: Not Given Documented by: Fluoxetine HCl (Prozac) 60 mg PO DAILY [facility] Last Admin: 04/27/20 08:20 Dose: 60 mg Documented by: Folic Acid (Folic Acid) 1 mg PO DAILY@0800 [facility] Last Admin: 04/27/20 08:19 Dose: 1 mg Documented by: Hydroxyzine Pamoate (Vistaril Pamoate Capsule) 50 mg PO Q4H PRN PRN PRN Reason: mild anxiety Ampicillin Sodium/Sulbactam (Sodium 3 gm/ Sodium Chloride) 112 mls @ 150 mls/hr IV Q8 [facility] Stop: 04/27/20 22:01 Last Infusion: 04/27/20 06:36 Dose: Infused Documented by: Sodium Chloride () 250 mls @ 15 mls/hr IV .[id number] PRN PRN Reason: Saline Flush Last Infusion: 04/24/20 12:25 Dose: Infused Documented by: Sodium Chloride () 250 mls @ 15 mls/hr IV .[id number] PRN PRN Reason: Additional IVPB Infusion Potassium Chloride () 10 meq in 100 mls @ 100 mls/hr IV BOLUS Q1H [facility] Stop: 04/27/20 11:44 Last Admin: 04/27/20 10:23 Dose: 100 mls/hr Documented by: Metoprolol Succinate (Toprol Xl (Beta Iftikhar)) 50 mg PO DAILY [facility] Last Admin: 04/27/20 08:21 Dose: 50 mg Documented by: Metoprolol Tartrate (Lopressor (Beta Iftikhar)) 5 mg IV Q8H PRN PRN Reason: for HR>110, Hold for sbp<110 Last Admin: 04/26/20 00:42 Dose: 5 mg Documented by: Neomycin/Polymyxin/Dexamethasone (Maxitrol) 2 drop EACH EYE Q6 [facility] Stop: 04/28/20 18:01 Last Admin: 04/27/20 06:13 Dose: 2 drop Documented by: Phenobarbital (Phenobarbital) 64.8 mg PO Q4H [facility]; Taper Stop: 04/29/20 23:59 Last Admin: 04/27/20 08:23 Dose: 64.8 mg Documented by: Potassium Chlor[facility] ([facility]-Dur) [facility] Last Admin: 04/27/20 08:19 Dose: 40 meq Documented by: Prochlorperazine Edisylate (Compazine Iv) 5 mg IV Q4H PRN PRN PRN Reason: Breakthrough Nausea/Vomiting Quetiapine Fumarate (Seroquel) 400 mg PO BID [facility] Last Admin: 04/27/20 08:20 Dose: 400 mg Documented by: Sodium Chloride () 10 - 40 ml IV UD PRN PRN Reason: SALINE FLUSH Last Admin: 04/26/20 22:53 Dose: 10 ml Documented by: Thiamine HCl (Vitamin B1) 100 mg PO DAILYCM [facility] Last Admin: 04/27/20 08:20 Dose: 100 mg Documented by: Discharge Activity: Return to Normal Activity Weight Bearing Status: Weight bearing as tolerated Call your doctor if you observe: Fever of 101 or Higher, Shortness of breath, Dizziness, Fainting spells, Chest pain, Increased palpitations (irregular heartbeat), Uncontrolled pain Home Medications: Medications to take at Discharge Fluoxetine [Prozac] 60 mg PO DAILY 08/06/15 Quetiapine Fumarate [Quetiapine Fumarate ER] 800 mg PO QHS 01/05/20 Atorvastatin Calcium [Lipitor] 40 mg PO DAILY 03/26/20 Metoprolol Succinate [Toprol Xl] 50 mg PO DAILY 03/26/20 Folic Acid 1 mg PO DAILY@0800 #30 tab 04/27/20 Multivitamin 1 tab PO DAILY #90 tab 04/27/20 Potassium Chloride [K-Dur] 20 meq PO DAILY #7 tab 04/27/20 Thiamine Hydrochloride [Vitamin B1] 100 mg PO DAILYCM #30 tab 04/27/20 Following Prescrptions Were Given to Patient: Folic Acid 1 mg PO DAILY@0800 #30 tab Transmission Status: Received by [place] [id number] Potassium Chloride [K-Dur] 20 meq PO DAILY #7 tab Transmission Status: Received by [place] [id number] Multivitamin 1 tab PO DAILY #90 tab Transmission Status: Received by [place] [id number] Thiamine Hydrochloride [Vitamin B1] 100 mg PO DAILYCM #30 tab Transmission Status: Received by [place] [id number] Primary Care Physician: Thania Herrmann MD [Primary Care Provider] - Please follow up with your Primary Care Physician in: 1 week. Please Follow Up With: Thania Herrmann MD Patient Instructions: Alcoholism: How to be Part of the Solution, Recovering from Addiction: Continuing with Counseling, Recovering from Addiction: Coping with Relapse Disposition: Home with Home Health Minutes spent on discharge:: 34 Patient Condition:: Stable Medical Necessity - Tobacco Use Smoking Status: Current every day smoker Tobacco Use: Cigarettes Meaningful Use Info Meaningful Use Diagnoses (Choose all that apply): None applicable Inpatient E&M: 16775 Disch Hosp
--- NOTE | 2020-04-27 11:42 | PHA.DC.MC ---
Pharmacy Service has performed discharge medication reconciliation and counseling for this patient. The patient's discharge medication list was reviewed for discrepancies and discrepancies were resolved. The patient was counseled on the following discharge medications and changes in medications for homegoing were reviewed. 1. K-Dur 20mEq PO Daily x7 days The Reason for Use, instructions for use, and potential side effects were reviewed for all new medications. The patient's questions regarding all of their medications were answered. The patient demonstrated some understanding but would benefit from further education and reinforcement. Home Medications Fluoxetine [Prozac] 60 mg PO DAILY 08/06/15 Quetiapine Fumarate [Quetiapine Fumarate ER] 800 mg PO QHS 01/05/20 Atorvastatin Calcium [Lipitor] 40 mg PO DAILY 03/26/20 Metoprolol Succinate [Toprol Xl] 50 mg PO DAILY 03/26/20 Folic Acid 1 mg PO DAILY@0800 #30 tab 04/27/20 Multivitamin 1 tab PO DAILY #90 tab 04/27/20 Potassium Chloride [K-Dur] 20 meq PO DAILY #7 tab 04/27/20 Thiamine Hydrochloride [Vitamin B1] 100 mg PO DAILYCM #30 tab 04/27/20
--- NOTE | 2020-05-02 11:19 | CASEMGMT ---
Social Work Discharge follow up Phone call: Discharge Date: 04/27/20 Call Date: 05/02/20 Callt Time: 1115 Reason for Follow up: Pt hospitalized with alcohol withdrawal. Resources provided during admission. Follow up for further assistance if needed. Summary of Call: no answer and no additional number to call. Interventions: SW will attempt to contact pt at another time as time allows. GUSTAVO Jimenez
== END 2020-04-27 15:08 | disposition home or self-care (01) | DRG 871 ==
LOC: ED 15:49 → ICU 17:12 → PCU 04-24 14:48
PROVIDERS: Hospitalist; Internal Medicine Critical Care Medicine; Admitting Provider Internal Medicine; Emergency Provider Emergency Medicine; PCP Psychiatry & Neurology Psychiatry; Visit Provider Hospitalist
DX: A41.9 Sepsis, unspecified organism (principal); J69.0 Pneumonitis due to inhalation of food and vomit; F10.231 Alcohol dependence with withdrawal delirium; M62.82 Rhabdomyolysis; E87.1 Hypo-osmolality and hyponatremia; N17.9 Acute kidney failure, unspecified; R65.20 Severe sepsis without septic shock; K70.10 Alcoholic hepatitis without ascites; E87.6 Hypokalemia; E83.42 Hypomagnesemia; E83.39 Other disorders of phosphorus metabolism; H10.9 Unspecified conjunctivitis; I10 Essential (primary) hypertension; E78.5 Hyperlipidemia, unspecified; Z79.899 Other long term (current) drug therapy; F17.210 Nicotine dependence, cigarettes, uncomplicated; E86.0 Dehydration; R56.9 Unspecified convulsions; F31.9 Bipolar disorder, unspecified; B96.89 Other specified bacterial agents as the cause of diseases classified elsewhere; E87.8 Other disorders of electrolyte and fluid balance, not elsewhere classified
CPT/HCPCS: 36415; 70450; 71045; 72125; 80048; 80053; 80202; 80307; 80320; 81001; 82140; 82550; 83036; 83605; 83735; 84100; 84484; 85025; 85610; 85730; 87040; 87070; 87075; 87077; 87086; 87149; 87186; 87205; 87635; 87641; 92526; 92610; 93005; 97116; 97162; 97166; 97530; 97535; 97803; 99251; 99285; G2023; J7030; J7040; J7050; A4216; G0463; G0480; J0295; J3490; U0003

== ENCOUNTER 2020-09-19 15:00 | Outpatient (RCR) | payer MEDICARE, MEDICAID, SELFPAY ==
[2020-04-20 18:54] VITALS: BMI 24.5
--- NOTE | 2020-08-27 13:17 | HP.PTEVAL ---
Patient's Visit Information HERB RICHARDS is a 59 year old M referred to Physical Therapy by FUENTES ZhangC with a diagnosis of Dizzyness. Date of Evaluation: 08/27/20 Physical Therapist: Chapin Grey DPT, OCS, CSCS - Visit Plan Frequency: 1x/Week Duration: 4-6 Weeks Plan: weekly with EG to progress VOR and teach general mobility/strength/head movement ex for patient to do at home iwth pics. Next squats, rows, heel raises, hip abd and VOR progression - Subjective Dizzy spells and lightheadedness for a long time. Years. Causes falls alot. Starts like a light ANTUNEZ in eyes. Happens if he gets up too quick. Dizzy when he lies down sometimes. Pt not consistent with his information on what causes it and how long it lasts. Falls have not been lately. Sometimes several times per day. Gets dizzy every day. Spends day in chair a lot lately except to take dogs out. Cannot do houseworka s he gets dizzy. Lives alone, has steps to dryer but neighbor does that. Has walker at home but it doesn't fit real well at home through doorways. No numbness in legs, no Diabetes. Dizzyness is more lightheaded/ANTUNEZ then any spinning. Had spinning this morning getting up and letting dogs. 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 Can't take care of housework, dresses self but stays in sweats. - Objective Walks normal but slow, safe on firm flat surface today. Trasnfers I without UE out of chair today. Cervical aROM WFL and no change to symptoms(mild dizzyness allt he time). - B hallpike paty. - roll test. Oculomotor: Slow pursuit and saccades. - skew eye deviation. - ocular tilt. Slow VOR and slightly worse horizontal for 2 minutes, vertical not worse. slow convergence. MSQ positions: none real bad, slioght with all movements. None like VOR. - Balance Scores Functional Gait Assessment Score: 21 % Disability: 30.0000 CATSIB Score (Max score 120 seconds): 92 - Goals Goal 1:: Dizzyness 80% better subjectively bu patient Goal Time Frame: 4-6 Weeks Goal 2:: FGA Goal Time Frame: 4-6 Weeks Goal 3:: I approp HEP to minimize future problems. Goal Time Frame: 4-6 Weeks - Rehabilitation Potential Physical Therapy Diagnosis: Dizzyness unknown origin. Rehabilitation Potential: Questionable - Anticipated Interventions Patient/Client Instruction: Educate patient on: Condition, Plan of Care For the Purpose of:: To increase tolerance to activity/condition/position, To improve gait and locomotor functions Therapeutic Exercise to Include: Strength training, Balance training Comment: VOR For the Purpose of:: To improve gait and locomotor functions Thank you for the opportunity to evaluate your patient. For Medicare and Medicare HMO plans, please review the plan of care and approve it. It will need to be FAXED BACK to us at [phone] for Medicare purposes. For Medicare only, by signing this I certify the plan of care. Please let me know if there are questions or concerns regarding this plan of care. Physician Signature: Date:
--- NOTE | 2020-09-19 15:39 | HP.PTDCSUM_ITS ---
It has been my pleasure to treat HERB RICHARDS referred by Johanne Johns, FUENTES Miguel, with the diagnosis of Dizzyness for a total of 3 visit(s). Discharge Date: 09/19/20 Please see the following information for a summary of their discharge status. Subjective: Dizzy spells and balance is off. No exchange mechanic the last two weeks. Done exercises every day for a week. Then says could not a few days. Tried VOR stadning instead of sitting adn scary. Did sink exercises as regularly as I can. Does not feel better with dizzyness and knees still feel like they might buckle. Knees achy after walking. % Improvement: 0 Objective/Function: Pt balance on the FGa is about the same as at al. Pt states no improvement in his overall dizzyness or steadiness. His knees ache with the LE exercises. He has improveed in abiliity to do VOR ex quality but has not had concomitant improvement in subjective. Pt sent back to doctor due to lack of improvement. Goal 1:: Dizzyness 80% better subjectively bu patient Goal Progress: Not Progressing Goal 2:: FGA Goal Progress: Not Progressing Goal 3:: I approp HEP to minimize future problems. Goal Progress: Not Progressing Plan: d/c, pt to contact doctor regarding f/u due to lack of improvement with therapy(questionable compliance) Discharge Comments: Pt to doctor for next medical step If there are questions or concerns regarding this patient's physical therapy, please feel free to call me at [phone]. Thank you for the referral of this patient. Sincerely, Chapin Grey, DPT, OCS, CSCS
== END 2020-09-19 19:00 | disposition home or self-care (01) ==
LOC: PT 15:00
PROVIDERS: PCP Psychiatry & Neurology Psychiatry; Referring Provider Nurse Practitioner Family; Visit Provider Nurse Practitioner Family
DX: R42 Dizziness and giddiness (principal)
CPT/HCPCS: 97110; 97162; 97164

== ENCOUNTER 2020-12-05 17:09 | Emergency (ER) | payer MEDICARE, SELFPAY ==
[2020-04-20 18:54] VITALS: BMI 24.5
[2020-12-05 17:14] VITALS: BP 146/80; PULSE 110; RESP 18; TEMP 36.6; O2SAT 99; BMI 30.5
[2020-12-05 17:18] VITALS: BP 146/80; PULSE 110; RESP 18; TEMP 36.6; O2SAT 99
--- NOTE | 2020-12-05 17:20 | ED.RN ---
pt states started new depression meds yesterday
--- NOTE | 2020-12-05 18:16 | CM.ED ---
Social Work Consult: Mental Health Informant: Nursing staff Telephone call to patient room due to precautions. Introduced self and hospice social worker role. Patient agreeable to speak with this hospice social worker. Per nursing staff patient reported to have a history of suicide attempt and suicide thoughts and patient triggered the screen for possible sitter. This hospice social worker inquired about patient current suicidality. Patient denies active suicidal thoughts, plans, or intents. Patient reports to have a history of suicidal thoughts but I have meds for that now. Patient reports to have a catalytic case operator (Irlanda) and psychiatrist (Dr. Loving) through [facility]. Patient reports to follow up with mental health providers and to be doing okay. Patient denies any substance abuse/use. Patient reports to have support from neighbors. Patient currently wanting to return to home and not way for medical work up, leaving AMA. Patient reports to want to live for my dogs. Patient states plan to go home as I think I am okay now. Patient educated by medical team on risk of discharge to home prior to medical work-up, patient voiced understanding to medical team on risk and signed AMA form. Patient reports to need a ride home and to have money to afford a taxi. Patient asked for medical team to call to set up a taxi. ED battery charger nurse, Chelsey called for the Taxi. Patient to discharge AMA to home. Updated Dr. Land on above. Both this hospice social worker and Dr. Land agree that patient is at low risk for suicidality and does not qualify for pink slip or inpatient psychiatric placement. PLAN: D/C AMA per patient request. Urszula BARRY, TETE
--- NOTE | 2020-12-05 18:19 | ED.RN ---
pt leaving AMA. dr bender in to talk with pt, [facility] case management has talked with pt. pt signs AMA form, awaiting taxi
--- NOTE | 2020-12-05 23:05 | ED.VISSUMM ---
- ER Visit Summary Date of Service: 12/05/20 Chief Complaint: Blood in urine History of Present Illness: The patient is a [address] Barbosa. He reports that he drinks 3-4 beers a day. He has had 3-4 beers today. States that he noticed he had hematuria yesterday. He denies any abdominal pain. Denies any nausea or vomiting. He reports that he was having diarrhea 3-4 times a day. They took Pepto-Bismol yesterday and he has not had any today. He denies any blood in his stools. Patient denies any dysuria or frequency. He reports that he has hematuria that started today. He denies any history of liver problems. He does admit that his skin is yellow, but he reports that that is unchanged. Patient reports he does feel depressed. However, he states not that depressed and denies any suicidal ideation. Physical Examination: Vitals: Stable. Afebrile. General: Well-nourished and well-developed. Head: Normocephalic atraumatic. Neck: Supple, no lymphadenopathy. No JVD. Nontender. Cardiovascular: Regular rate and rhythm. No murmurs. Respiratory: No respiratory distress. Clear to auscultation bilaterally. Abdominal: Soft, nontender, nondistended, normal bowel sounds. No guarding, rebound, or peritoneal signs. Back: Nontender. Extremities: Nontender, no edema. Skin: Jaundice, no rash. Neurologic: Alert and oriented ?3. Cranial nerves II through XII are intact. Normal strength and sensation. Psych: Normal affect. Test Results: I ordered labs, but prior to the patient decided that he did not want to have any this done. Emergency Department Course and Treatment: I had a prolonged discussion the patient that he is jaundiced and certainly does have liver problems. He understands this and still does not want any work-up undertaken. Treatment Plan: Patient will be signed out AGAINST MEDICAL ADVICE. He is clinically not intoxicated. He understands the risk of worsening liver problems and still wants to leave. At this point he is capable of making this decision. He is instructed to follow-up with his primary care physician as soon as possible. Return to the emergency department for any worsening symptoms. Disposition: To home in improved and stable condition. Impression: 1. Alcoholism. 2. Jaundice. 3. Left AMA. This note was generated with [employer] dictation software. It may contain incorrect words, spelling, and punctuation that were not noted in review of the chart prior to signing ED Disposition - Plan for ED Patient: Disposition: Against Medical Advice Referrals: Thania Herrmann MD [Primary Care Provider] -
== END 2020-12-05 18:20 | disposition left against medical advice (07) ==
LOC: ED 18:09
PROVIDERS: Emergency Provider Emergency Medicine; PCP Psychiatry & Neurology Psychiatry
DX: F10.20 Alcohol dependence, uncomplicated (principal); R17 Unspecified jaundice; I10 Essential (primary) hypertension; F17.290 Nicotine dependence, other tobacco product, uncomplicated
CPT/HCPCS: 99283

== ENCOUNTER 2020-12-07 09:54 | Inpatient (IN) | payer MEDICARE, SELFPAY ==
[2020-12-07] VITALS (23 sets, daily range): BP systolic 93–170; BP diastolic 63–91; PULSE 90–112; RESP 14–23; TEMP 36.7–37.2; O2SAT 90–100; BMI 26.0; BMI 26.1; BMI 27.8
--- NOTE | 2020-12-07 10:06 | EKG12_ITS ---
Test Reason : GENERAL ILLNESS Blood Pressure : / mmHG Vent. Rate : 095 BPM Atrial Rate : 095 BPM P-R Int : 128 ms QRS Dur : 086 ms QT Int : 384 ms P-R-T Axes : 005 -26 016 degrees QTc Int : 482 ms Normal sinus rhythm Inferior infarct , age undetermined Abnormal ECG Confirmed by WALTER GARCIA, HIRO ([id number]), editor map FREDIS PULIDO ([id number]) on 12/10/2020 10:58:09 AM Referred By: LUKASZ Confirmed By:HIRO WATSON MD
--- NOTE | 2020-12-07 10:07 | ED.VIS.GEN ---
History of Present Illness Chief Complaint: General Illness Informant: Patient Onset: Days Context: Sudden Onset Timing: Intermittent Quality: Post hematuria, shortness of breath, cough, weight loss Location: Multiple Current Severity: Mild Maximum Severity: Moderate Worsened by: Nothing according to the patient Relieved by: Nothing Associated Symptoms: Please read HPI Narrative: Patient is 58-year-old male who was seen on December 05. He left AGAINST MEDICAL ADVICE. He presented with chief complaint of gross hematuria. Patient is an alcoholic. He states he had 3-4 beers this morning. He is not a good informant. Will review old records. Patient states he had an accident. There is stool on his back, legs and his socks are covered with stool. Patient denies fever, chills night sweats. Patient denies epistaxis. He states his voice has been hoarse for some time. The cough is chronic and nonproductive. He is a smoker. He denies history of PE or DVT. He was unaware that his skin is yellow. He denies nausea, vomiting or diarrhea. He denies blood in his stool. He does report increased size in his abdomen. He states he has an umbilical hernia and has had an umbilical hernia since he was a child. Patient does report being depressed and sad but not suicidal. He does acknowledge that he is bruising easily. He had increased swelling of his legs. Per review of ER visit 2 days ago he had no edema of his legs. He does report discomfort in his abdomen intermittently. Patient does report weight loss. He states he has not been eating well. Prior similar symptoms: Yes Recent Illness/Hospitalization: Yes - Past Medical History (1) Alcoholic hepatitis Status: Acute (2) Bipolar disorder Status: Chronic (3) Hyperlipidemia Status: Chronic (4) Hypertension Status: Chronic (5) Tobacco dependence Status: Chronic (6) Seizure Status: Suspected Past Medical History - Allergies and Home Meds Allergies/Adverse Reactions: Allergies lisinopril Allergy (Verified 12/07/20 09:55) Angioedema peanut Allergy (Verified 12/07/20 09:55) Hives Primary Care Physician: Thania Herrmann MD [NON-STAFF] - Prior records reviewed: Yes Surgical History: - - Pins and plates in left forearm Lives: Alone Smoking Status: Current every day smoker Alcohol: Heavy Drugs: None Review of Systems General: Reports: Malaise, Weight loss. Denies: Chills, Fever, Subjective, Sweats Eyes: Denies: Visual changes - bilaterally, Blurred Vision - bilaterally ENT: Denies: Rhinorrhea, Sore throat Cardiovascular: Denies: Chest pain, Palpitations Respiratory: Reports: Dyspnea, Cough, Dyspnea on exertion, Orthopnea. Denies: Sputum, Paroxysmal nocturnal dyspnea Gastrointestinal: Reports: Abdominal pain, Nausea. Denies: Vomiting, Diarrhea, Melena, Hematochezia Genitourinary: Reports: Hematuria. Denies: Dysuria, Frequency Musculoskeletal: Reports: Swelling. Denies: Myalgias, Arthralgias, Neck pain, Back pain, Extremity Pain Skin: Denies: Rash, Wounds Neurological: Reports: Weakness. Denies: Headache, Parasthesia Psych: Reports: Depression. Denies: Suicidal thoughts Endocrine: Denies: Polyuria, Polydipsia Hematologic: Reports: Easy bruising, Easy bleeding Physical Exam Vital Signs/Narrative: Vital Signs Temp Pulse Resp BP Pulse Ox 12/07/20 10:07 95 19 H 126/91 H 96 12/07/20 09:55 98.6 F 100 14 128/75 H 100 Inital Vital Signs reviewed: Yes General: Well developed, Unkempt, Acute Distress Head: Normocephalic, Atraumatic. Negative for: Trauma, Tenderness Eyes: Perrl, EOMI, Pale conjunctiva, Scleral icterus ENT: No rhinorrhea, TM's clear Neck: Supple, Nontender, No lymphadenopathy, No JVD, - - He has midline. Cardiovascular: Regular rate, Regular rhythm, No murmurs, Normal S1, Normal S2 Respiratory: Rales, Decreased Air Movement. Negative for: No distress, CTA bilaterally Abdomen: Soft, Nontender, No masses, - - Is a fluid wave and shifting dullness. Patient has a small umbilical hernia.. Negative for: Nondistended, Normal bowel sounds, Hepatomegaly, Splenomegaly, Mass, Pulsatile mass Rectal: - - Stool is brown. Back: Nontender, Normal Inspection Extremities: Nontender, Edema. Negative for: No edema Skin: No rash, Jaundice, Trauma - Bruises noted left upper extremity. Hand is swollen. There is no pain no patient over the distal radius or ulna, carpal bones, metacarpal bones or phalanges.. Negative for: Normal color, Cyanosis, Diaphoresis, No Trauma Neurological: Oriented x3, Cranial nerves II-XII grossly intact, Normal Strength, Normal Sensation, Normal DTR. Negative for: Alert, Normal Gait Psychological: Depressed Diagnostic/Tx/Re-eval Chest X-Ray - ED: 1 View, Read by ED Physician, Normal, Heart, Mediastinum, Bony Structures, No Acute Disease, Chronic Changes, - - Single view portable chest x-ray was interpreted by me at 1023. 12/07/20 10:15 Chest 1 View (Portable) [RAD] Stat Impressions Chest X-Ray 12/07/20 10:15 IMPRESSION: Hyperinflation. Mild linear opacity at the right lung base suggestive of scarring. This has improved as compared to prior study. Electronically Signed: Emmanuel Craig MD at 10:41 EST , Service support , Abdomen/Pelvis CT 12/07/20 11:59 IMPRESSION: Mild degree of right basilar atelectasis. Diffuse fatty infiltration of the liver. Mild degree of increased markings in the peritoneal fat surrounding the gallbladder. Focal inflammation should be ruled out. Nonobstructive calculus in the lower pole calyx of the left kidney with mild degree of left hydronephrosis and moderate degree of dilated left ureter down to the bladder. ROSEN catheter is seen within the urinary bladder. The urinary bladder is diffusely thickened. Electronically Signed: Emmanuel Craig MD at 12:23 EST , Service support , Abdomen Ultrasound 12/07/20 12:34 IMPRESSION: Hepatomegaly and diffuse fatty infiltration of the liver. Gallbladder wall thickening. Sludge is seen within the gallbladder lumen. Electronically Signed: Emmanuel Craig MD at 14:21 EST , Service support , 12/07/20 10:15 Chest 1 View (Portable) [RAD] Stat 12/07/20 11:59 Abdomen/Pelvis W IV Cont ONLY [CT] Stat 12/07/20 12:34 Abdomen Limited [US] Stat Laboratory Results 02/19/21 02/19/21 02/19/21 10:10 10:10 10:10 WBC 12.3 H RBC 2.02 L Hgb 7.7 L Hct 25.4 L MCV 125.7 H MCH 38.1 H MCHC 30.3 L RDW Std Deviation 102.0 H RDW Coeff of William 23.4 H Plt Count 172 MPV 10.7 Immature Gran % (Auto) 1.800 H Neut % (Auto) 60.5 Lymph % (Auto) 27.3 Douglas % (Auto) 9.1 Eos % (Auto) 0.7 Baso % (Auto) 0.6 Absolute Neuts (auto) 7.5 Absolute Lymphs (auto) 3.36 Nucleated RBC % 1.2 Differential Comment SCANNED Polychromasia 2+ Hypochromasia 1+ Anisocytosis 2+ Microcytosis 1+ Macrocytosis 2+ Stomatocytes 1+ PT 17.2 H INR 1.5 APTT 33.6 Sodium 138 Potassium 3.3 L Chloride 105 Carbon Dioxide 26.0 Anion Gap 7 BUN 4 L Creatinine 0.67 L Estim Creat Clear Calc 121.75 Est GFR (MDRD) Af Amer 154 Est GFR (MDRD) Non-Af 127 BUN/Creatinine Ratio 5.9 L Glucose 128 H Lactic Acid Calcium 7.7 L Magnesium Total Bilirubin 11.40 H Direct Bilirubin 9.29 H AST 1293 H ALT 262 H Alkaline Phosphatase 425 H Ammonia Total Protein 6.3 L Albumin 1.6 L Globulin 4.7 H Lipase 255 Urine Color Urine Clarity Urine pH Ur Specific [place] Urine Protein Urine Glucose (UA) Urine Ketones Urine Occult Blood Urine Nitrite Urine Bilirubin Urine Urobilinogen Ur Leukocyte Esterase Urine RBC Urine WBC Ur Squamous Epith Cells Ur Renal Epithelial Cell Amorphous Sediment Urine Bacteria Hyaline Casts Fine Granular Casts WBC Casts Urine Mucus Ethyl Alcohol POC Glucose Blood Type Antibody Screen 12/07/20 12/07/20 12/07/20 10:10 10:16 10:40 WBC RBC Hgb Hct MCV MCH MCHC RDW Std Deviation RDW Coeff of William Plt Count MPV Immature Gran % (Auto) Neut % (Auto) Lymph % (Auto) Douglas % (Auto) Eos % (Auto) Baso % (Auto) Absolute Neuts (auto) Absolute Lymphs (auto) Nucleated RBC % Differential Comment Polychromasia Hypochromasia Anisocytosis Microcytosis Macrocytosis Stomatocytes PT INR APTT Sodium Potassium Chloride Carbon Dioxide Anion Gap BUN Creatinine Estim Creat Clear Calc Est GFR (MDRD) Af Amer Est GFR (MDRD) Non-Af BUN/Creatinine Ratio Glucose Lactic Acid 3.8 H* Calcium Magnesium Total Bilirubin Direct Bilirubin AST ALT Alkaline Phosphatase Ammonia Total Protein Albumin Globulin Lipase Urine Color Roxy Urine Clarity Sl. Cloudy Urine pH 6.5 Ur Specific [place] 1.015 Urine Protein 100 H Urine Glucose (UA) Normal Urine Ketones 5 H Urine Occult Blood 250 H Urine Nitrite Positive H Urine Bilirubin 6 H Urine Urobilinogen 12 H Ur Leukocyte Esterase 25 H Urine RBC 0 SEEN Urine WBC 0-5 SEEN Ur Squamous Epith Cells 0 SEEN Ur Renal Epithelial Cell 0-5 SEEN Amorphous Sediment 1+ Urine Bacteria 2+ Hyaline Casts 0-5 SEEN Fine Granular Casts 5-10 SEEN WBC Casts 0-5 SEEN Urine Mucus 0 SEEN Ethyl Alcohol 130.0 POC Glucose Blood Type Antibody Screen 12/07/20 12/07/20 12/07/20 11:00 11:05 11:05 WBC RBC Hgb Hct MCV MCH MCHC RDW Std Deviation RDW Coeff of William Plt Count MPV Immature Gran % (Auto) Neut % (Auto) Lymph % (Auto) Douglas % (Auto) Eos % (Auto) Baso % (Auto) Absolute Neuts (auto) Absolute Lymphs (auto) Nucleated RBC % Differential Comment Polychromasia Hypochromasia Anisocytosis Microcytosis Macrocytosis Stomatocytes PT INR APTT Sodium Potassium Chloride Carbon Dioxide Anion Gap BUN Creatinine Estim Creat Clear Calc Est GFR (MDRD) Af Amer Est GFR (MDRD) Non-Af BUN/Creatinine Ratio Glucose Lactic Acid Calcium Magnesium 1.9 Total Bilirubin Direct Bilirubin AST ALT Alkaline Phosphatase Ammonia 34.0 H Total Protein Albumin Globulin Lipase Urine Color Urine Clarity Urine pH Ur Specific [place] Urine Protein Urine Glucose (UA) Urine Ketones Urine Occult Blood Urine Nitrite Urine Bilirubin Urine Urobilinogen Ur Leukocyte Esterase Urine RBC Urine WBC Ur Squamous Epith Cells Ur Renal Epithelial Cell Amorphous Sediment Urine Bacteria Hyaline Casts Fine Granular Casts WBC Casts Urine Mucus Ethyl Alcohol POC Glucose 125 H Blood Type Antibody Screen 12/07/20 11:16 WBC RBC Hgb Hct MCV MCH MCHC RDW Std Deviation RDW Coeff of William Plt Count MPV Immature Gran % (Auto) Neut % (Auto) Lymph % (Auto) Douglas % (Auto) Eos % (Auto) Baso % (Auto) Absolute Neuts (auto) Absolute Lymphs (auto) Nucleated RBC % Differential Comment Polychromasia Hypochromasia Anisocytosis Microcytosis Macrocytosis Stomatocytes PT INR APTT Sodium Potassium Chloride Carbon Dioxide Anion Gap BUN Creatinine Estim Creat Clear Calc Est GFR (MDRD) Af Amer Est GFR (MDRD) Non-Af BUN/Creatinine Ratio Glucose Lactic Acid Calcium Magnesium Total Bilirubin Direct Bilirubin AST ALT Alkaline Phosphatase Ammonia Total Protein Albumin Globulin Lipase Urine Color Urine Clarity Urine pH Ur Specific [place] Urine Protein Urine Glucose (UA) Urine Ketones Urine Occult Blood Urine Nitrite Urine Bilirubin Urine Urobilinogen Ur Leukocyte Esterase Urine RBC Urine WBC Ur Squamous Epith Cells Ur Renal Epithelial Cell Amorphous Sediment Urine Bacteria Hyaline Casts Fine Granular Casts WBC Casts Urine Mucus Ethyl Alcohol POC Glucose Blood Type O POSITIVE Antibody Screen NEGATIVE - EKG Initial EKG Interpretation: Sinus Rhythm - Sinus rhythm with a ventricular rate of 95. [place] interval 220 ms. QS duration 86 ms. QT duration 384 ms. [place] is normal. Computer is reading inferior infarct of undetermined etiology. There is slight upward deflection initially and disagree with prior inferior [place]. There is artifact. - Medical Decision Making Patient has jaundice with ascites by exam. Need to rule out liver failure/coagulopathy. Rosen was placed for accurate I's and O's and determine the amount of bleeding. CBC was obtained to assess H&H and compared to 2 days ago. Electrolytes were obtained since she does have history of hyponatremia and hypokalemia. PT/INR was obtained to assess liver function and determine if he has a coagulopathy. Concern patient may have pleural effusion and pulmonary congestion due to liver failure. Chest x-ray was obtained. An ammonia level was obtained since he is not alert. White count is elevated with shift without bandemia. This could be due to stress or other factors including infection. Hemoglobin is down greater than 2 g since April 2020. INR is normal. PTT is normal. Lactate is elevated and this may be due to his liver disease. Liver enzymes are elevated and suggestive of alcoholic hepatitis since his INR is normal i.e. liver function is not impaired. Bilirubin is elevated 11.4. Nurse states patient did have gross hematuria when Rosen was placed. Patient's ascites and edema may be due to hypoalbuminemia. This also could be due to the alcoholic hepatitis. Patient was not typed and screened. Case will be discussed with appropriate services. If patient is admitted at [facility] will type and screen. Patient urine is consistent with an infection. Since he has an elevated lactate of 3.8 blood cultures were ordered and he was administered 1 g of Rocephin. Because patient's potassium is low magnesium level was obtained. Patient also received 100 mg of thiamine since he is an alcoholic and appears malnourished. Case was discussed with hospitalist. Because of his elevated transaminases he requested a CT of the abdomen pelvis. CT of the abdomen pelvis was ordered. The CAT scan reveals thickened gallbladder wall and there is concern for possible inflammation. Patient also has hydronephrosis on the left. Because there is concern for acute cholecystitis and patient did receive Rocephin 2 treat urologic pathogens will give a dose of gentamicin for gram-negative coverage. Recommendation per radiologist was ultrasound which was ordered. Patient was reevaluated at 1239. He complains of no abdominal pain. He has no tenderness in the right upper quadrant and he has a negative clinical Molina sign. Since he does not have right upper quadrant pain doubt that he has a sending cholangitis. There is no evidence of acute cholecystitis on ultrasound. There is significant fatty infiltration of liver due to alcoholism. Hospitalist was repaged for admission at 1427 There is a new hospitalist taking admissions. The hospitalist states she has concerned that he needs GI and refuses to admit patient. Patient was informed that he will need to be transferred. There is concerned that he will not stay for transfer and he is now concerned about his dogs. Attempted to refocus patient and to verify that he understands the seriousness of his illness and why he needs to be admitted. He states he cannot stay. He cannot tell me he understands the risks and benefits of going home versus staying. He is fixated on his dogs. Consult was placed to case management to determine if there is anyone who he trusts to watch after his dogs. Diane from case management saw patient. We both saw and evaluated patient. He is willing to stay. He does not wish to be transferred. He understands the consequences if he goes home. He understands that it is the hospitalist opinion he should go to a tertiary care center. He states he does not want to be transferred Repeat lactate is 2.4 which is a significant decline from the initial lactate. Patient appears to be perfusing well. He will receive a fluid bolus. Patient was given IV Ativan because of concern he may go into withdrawal. And, CIWA assessment was ordered. Patient's case management spoke to Mr. Knapp. He understands consequences. It is my opinion at this time that he does have capacity. He understands it is in his best interest to go to a tertiary center. He however has chosen not to. He wants to stay in [place]. He understands limitations of this hospital. - Critical Care Time Critical care time (excluding procedures): 75-104 minutes - Total time 76 minutes which includes performing history and physical examination, review of prior records, documentation, interpretation of lab results and initiation of therapy., Discussing w/Patient &/or Family/Construction Services Technician, Discussing w/Consultants, Arranging Admission or Transfer ED Disposition - Plan for ED Patient: Diagnosis: Alcoholic hepatitis with ascites, Anemia, unspecified, Hypokalemia, Jaundice, Gross hematuria, Hypoalbuminemia, Lactic acidosis, Severe sepsis, Urinary tract infection Referrals: Thania Herrmann MD [NON-STAFF] -
--- NOTE | 2020-12-07 10:15 | RAD_ITS ---
STUDY: X-RAY CHEST REASON FOR EXAM: Male, 60 years old. Dyspnea, cough, ascites, rales and wheezing. TECHNIQUE: Single AP portable view of the chest. COMPARISON: Comparison is made with prior study dated 04/20/2020. FINDINGS: EKG electrodes are seen. Hyperinflation. Mild degenerative changes at the right lung base suggestive of a possible scarring. There is no demonstrated pleural abnormality. Normal size heart. Normal mediastinum and krista. Normal visualized pulmonary arteries. Normal visualized aortic arch and descending thoracic aorta. Normal visualized thoracic spine. Normal visualized ribs, clavicles, and shoulders. There is no demonstrated abnormality of the visualized soft tissue structures of the upper abdomen. RAD/Chest 1 View (Portable) IMPRESSION: Hyperinflation. Mild linear opacity at the right lung base suggestive of scarring. This has improved as compared to prior study. Electronically Signed: Emmanuel Craig MD at 10:41 EST , Service support ,
[2020-12-07 10:24] LABS: Absolute Lymphocyte Count 3.36 X10^3/uL (0.83-4.51); Absolute Neutrophil Count 7.5 X10^3/uL (2.0-7.7); Basophil# 0.08 X10^3/uL; Basophil% 0.6 % (0-1); Eosinophil# 0.09 X10^3/uL; Eosinophils% 0.7 % (0-5); Hematocrit 25.4 % (40-54); Hemoglobin 7.7 g/dL (13.0-16.5); Lymphocyte # 3.36 X10^3/ul (4.0); Lymphocyte % 27.3 % (19-41); Mean Corp Hgb Conc 30.3 g/dL (32-36); Mean Corpuscular Hgb 38.1 pg (27.0-32.0); Mean Corpuscular Volume 125.7 fL (80-94); Mean Platelet Vol. 10.7 fl (6.2-12.0); Monocyte# 1.12 X10^3/uL; Monocyte% 9.1 % (0-10); NRBC Flagged by Analyzer 1.2 % (0-5); Neutrophil # 7.45 X10^3/uL (2.7-7.7); Neutrophil % 60.5 % (47-70); POSITIVE MORPHOLOGY YES; Platelet Count 172 K/mm3 (150-450); RBC Distribution Width CV 23.4 % (11.6-14.6); Red Blood Count 2.02 M/mm3 (4.6-6.2); White Blood Count 12.3 K/mm3 (4.4-11.0)
[2020-12-07 10:32] LABS: Differential Indicated SCAN CRITERIA MET
[2020-12-07 10:42] LABS: International Normalized Ratio 1.5; Partial Thromboplast Time 33.6 Seconds (24.1-36.2); Prothrombin Time (Protime)PT. 17.2 SECONDS (11.7-14.9)
[2020-12-07 10:47] LABS: Differential Comment SCANNED; Hypochromasia 1+
[2020-12-07 10:48] LABS: AST(SGOT) 1293 U/L (15-37); Alanine Aminotransfer ALT/SGPT 262 U/L (16-61); Albumin, Serum 1.6 g/dL (3.2-5.0); Alkaline Phosphatase 425 U/L (45-117); Anion Gap 7 (5-15); BUN 4 mg/dL (7-18); BUN/Creat Ratio 5.9 RATIO (10-20); Bilirubin, Direct 9.29 mg/dL (0.00-0.30); Calcium,Total 7.7 mg/dL (8.5-10.1); Chloride 105 mmol/L (98-107); Creatinine, Serum 0.67 mg/dL (0.70-1.30); EST Glomerular Filtration Rate 127 mL/min (>60); Est Glom Filt Rate - Afr Amer 154 mL/min (>60); Estimated Creatinine Clearance 121.75 ml/min; Globulin 4.7 g/dL (2.2-4.2); Glucose 128 mg/dL (74-106); Lipase 255 U/L (73-393); Potassium 3.3 mmol/L (3.5-5.1); Protein, Total 6.3 g/dL (6.4-8.2); Sodium Level 138 mmol/L (136-145)
[2020-12-07 10:50] LABS: Mucous, Urine 0 SEEN /hpf (<or=2+); Red Blood Cells-Urine 0 SEEN /hpf (0-5); Squamous Epithelial Cells - UA 0 SEEN /hpf (0-5)
[2020-12-07 10:51] LABS: Lactic Acid 3.8 mmol/L (0.4-1.9)
[2020-12-07 10:55] LABS: Polychromasia 2+; Stomatocyte 1+
[2020-12-07 10:56] LABS: Color, Urine Amber (Yellow); Glucose, Dipstick Normal (Normal); Ketone-Dipstick 5 mg/dl (Negative); Leukocyte Esterase-Dipstick 25 /ul (Negative); Nitrite-Dipstick Positive (Negative); Occult Blood-Urine 250 /ul (Negative); Protein-Dipstick 100 mg/dl (Negative); Specific Gravity, Urine 1.015 (1.002-1.030); Urine Clarity Sl. Cloudy (Clear); Urine Urobilinogen 12 mg/dl (Normal); Urine pH 6.5 (5.0 - 8.0)
[2020-12-07 10:56] LABS: Microcytosis 1+
[2020-12-07 10:57] LABS: Macrocytosis 2+
[2020-12-07 10:58] LABS: Anisocytosis 2+
[2020-12-07 11:00] LABS: Urine Bilirubin Dipstick 6 mg/dL (Negative)
[2020-12-07 11:03] LABS: Fine Granular Cast- Urine 5-10 SEEN /lpf (0-5); Hyaline Cast 0-5 SEEN /lpf (0-5)
[2020-12-07 11:04] LABS: White Blood Cells 0-5 SEEN /hpf (0-5)
[2020-12-07 11:05] LABS: Amorphous Sediment 1+; Bacteria 2+ /hpf (None Seen); Renal Epithelial Cells 0-5 SEEN /hpf (0-5)
[2020-12-07 11:06] LABS: White Cell Cast 0-5 SEEN /lpf (None Seen)
[2020-12-07 11:10] LABS: Bedside Glucose 125 mg/dL (70-110)
[2020-12-07 11:54] LABS: Magnesium 1.9 mg/dL (1.6-2.6)
--- NOTE | 2020-12-07 11:59 | CT_ITS ---
STUDY: CT ABDOMEN AND PELVIS WITH CONTRAST REASON FOR EXAM: Male, 60 years old. JAUNDICE WITH CHRONIC SOB. RECENTLY SEEN FOR THIS BUT SIGNED OUT AMA. BLOOD IN URINE RADIATION DOSAGE (If Supplied By Facility): CTDIvol = ( 13.04 ) mGy, DLP = ( 872.40 ) mGycm TECHNIQUE: Transaxial images were obtained from the dome of the diaphragm to the symphysis pubis without oral contrast. IV 100mL [id number]-[id number] was administered. Sagittal and coronal images were reconstructed. Individualized dose optimization techniques were used for this CT. COMPARISON: None. FINDINGS: Mild degree of right basilar atelectasis. The visualized portions of the heart are within normal limits. There is decreased attenuation of the liver consistent with steatosis. Mild degree of increased markings in the peritoneal fat surrounding the gallbladder fossa. Mild degree of nonspecific right perinephric stranding. Normal spleen. Normal pancreas. Normal bilateral adrenal glands. Normal right kidney. Mild degree of left hydronephrosis. 4 mm nonobstructive calculus in the lower pole calyx of the left kidney. Moderate degree of dilute dilatation of the left ureter down to its insertion into the urinary bladder. This most likely secondary to diffuse thickening of the bladder wall. Normal visualized stomach. Normal small intestine. Normal colon. The appendix is visualized and appears normal. There is diffuse atherosclerotic calcification of the abdominal aorta, without a demonstrated aneurysm. Normal inferior vena cava. Normal retroperitoneum. A ROSEN catheter is seen within the bladder. The bladder is empty although there is diffuse bladder wall thickening. Normal abdominal wall. There are degenerative changes of the visualized lumbar spine. CT/Abdomen/Pelvis W IV Cont ONLY IMPRESSION: Mild degree of right basilar atelectasis. Diffuse fatty infiltration of the liver. Mild degree of increased markings in the peritoneal fat surrounding the gallbladder. Focal inflammation should be ruled out. Nonobstructive calculus in the lower pole calyx of the left kidney with mild degree of left hydronephrosis and moderate degree of dilated left ureter down to the bladder. ROSEN catheter is seen within the urinary bladder. The urinary bladder is diffusely thickened. Electronically Signed: Emmanuel Craig MD at 12:23 EST , Service support ,
--- NOTE | 2020-12-07 12:04 | ED.RN ---
Called down to pharm for rocephin and thiamine. The system had me pull a vial and said to mix it. Called to pharm t confirm this, re the thiamine. Wasting thiamine and awaiting both IV meds from pharm
[2020-12-07] MEDS: Ceftriaxone 1 GM/50 ML BAG IV (12:14)
--- NOTE | 2020-12-07 12:34 | US_ITS ---
STUDY: ABDOMINAL ULTRASOUND - RIGHT UPPER QUADRANT REASON FOR VISIT: Male, 60 years old ABN LABS -- THICKENED GB WALL -- F/U CT TECHNIQUE: Ultrasound evaluation of the right upper quadrant was performed with real-time and static schrader-scale imaging. TECHNICAL QUALITY: Adequate. COMPARISON: Comparison is made with prior CT scan and abdomen today. FINDINGS: Liver: The liver is enlarged and measures 23 cm. There is increased echogenicity consistent with fatty infiltration. The bile ducts are within normal limits. There is hepatic color flow. The direction of portal flow is hepatopetal. There is no demonstrated mass lesion. Gallbladder: Normal distended gallbladder. The gallbladder wall is thickened and measures 3.8 mm. There is a negative sonographic Molina''s sign. There is no pericholecystic fluid. There are no gallstones. Sludge is seen within the gallbladder lumen. Common Bile Duct (C.B.D.): The common bile duct measures mm. Pancreas: Normal size of the head, body and tail of the pancreas. There is normal echogenicity of the pancreas. There is no demonstrated pancreatic mass or cyst. Right Kidney: Normal size of the right kidney. The right kidney measures 11.5 cm x 6.7 cm x 4.7 cm. Normal renal cortex. The right cortex measures 2.0 cm. There is no demonstrated renal mass or cyst. There is no right hydronephrosis. US/Abdomen Limited IMPRESSION: Hepatomegaly and diffuse fatty infiltration of the liver. Gallbladder wall thickening. Sludge is seen within the gallbladder lumen. Electronically Signed: Emmanuel Craig MD at 14:21 EST , Service support ,
--- NOTE | 2020-12-07 12:47 | ED.RN ---
Waiting on second atb from pharm. Patient states he has pain 8-9 and feels like he has to pee. He is aware he has a canales and can pee as it will collect from there. States he thinks that is what hurts. The canales is still draining. Will monitor and reported to Dr Le as req for pain med.
[2020-12-07] MEDS: Morphine 2 MG/ML Syringe IV (13:09)
[2020-12-07 14:20] LABS: Reflex Lactate? Y
--- NOTE | 2020-12-07 14:30 | CM.ED ---
SOCIAL WORK Informant: Dr. Le Reason for Consult: Discharge Planning-Patient wanting to leave AMA Informed by Dr. Le, patient requiring hospitalization/transfer, however, patient is concerned about dogs at home. Patient was seen on 12/[address] Le has informed patient of the severity of his medical condition and if he leaves AMA it could possibly lead to his . Met with patient in room. Introduced role and reason for referral. Patient reports lives home alone with his dogs and is concerned about who would care for animals during hospitalization. Patient reports does not have family as he has not spoken to his children in over 30-40 years. Patient reports history of alcohol abuse and states drinks 6-7 beers/day. Informed patient this worker and medical staff are concerned and Adult Protective Services is aware of patient's condition due to last visit on 12/05/20. Patient verbalized understanding and states, I do not want to leave [facility]. I will go home. Tramaine Le updated on the above. Call to Gogo with Adult Protective Services. Gogo reports will speak with patient's embedded case manager, Diana Luong through [facility] and call this worker back. Plan: NELLI Soto, SCABBLER, DIRECTOR WORK
--- NOTE | 2020-12-07 15:00 | CM.ED ---
SOCIAL WORK This worker along with Dr. Le met with patient again to discuss the severity of his medical condition. Hospitalist have recommended transfer due to patient needing GI and have refused admission. Patient is refusing transfer, and states will only stay and be treated here. Informed patient Adult Protective Services will be speaking with family service caseworker, Diana through [facility] so his dogs will be cared for while in the hospital. Dr. Le to speak with hospitalist and Tracy Nunez regarding patient's case and admission as patient is refusing transfer. Tramaine Soto, CUT AND PRINT MACHINE OPERATOR, PUMP HOUSE TECHNICIAN
[2020-12-07 15:38] LABS: Lactic Acid 2.4 mmol/L (0.4-1.9)
--- NOTE | 2020-12-07 16:00 | CM.ED ---
SOCIAL WORK Tracy Nunez and hospitalist Dr. Johnson made aware of patient's refusal of transfer. Dr. Johnson inquiring about patient's mental capacity to understand medical condition and that this hospital does not have the specialists patient may require. This worker to follow up with patient regarding if unable to make decisions for self, who would be next of kin to make decisions. Dr. Le made aware and will again discuss with patient.
[2020-12-07] MEDS: LORazepam 2 MG/ML Syringe 0.5 MG IV (16:07)
--- NOTE | 2020-12-07 16:20 | CM.ED ---
SOCIAL WORK This worker met with patient in room to discuss next of kin/HPOA. Per patient, has not spoken with his children in 30-40 years. Patient reports does not have a HPOA. Patient stating, my friends are my family. If I was unable to make decisions, but I am, I would want Diana. Dianaluciano Luong is patient's case specialist through [facility]. Facilitated phone call to Diana ([phone]) while in patient's room as patient gave permission for this worker to update on patient's medical condition. Diana spoke with patient and discussed transfer. Patient continues to refuse and states I will stay here. Dr. Le updated on the above. Dr. Le does believe patient has mental capacity to understand medical condition, risks of not being transferred and limitations of this hospital. Dr. Le to discuss with hospitalistLarisa Rivers with Adult Protective Services updated on concerns and plan of care at this time. Plan: Anticipate admission Tramaine Soto VENEER SLICING MACHINE OPERATOR, RN HOUSE SUPERVISOR
--- NOTE | 2020-12-07 17:00 | PCM.HP.STD ---
Problem List (1) Alcoholic hepatitis with ascites Status: Acute (2) Anemia, unspecified Status: Acute Qualifiers: Anemia type: unspecified type Qualified Code(s): D64.9 - Anemia, unspecified (3) Jaundice Status: Acute (4) Hypoalbuminemia Status: Chronic (5) Lactic acidosis Status: Acute (6) Hypertension Status: Chronic Qualifiers: Hypertension type: essential hypertension Qualified Code(s): I10 - Essential (primary) hypertension (7) Hyperlipidemia Status: Chronic Qualifiers: Hyperlipidemia type: unspecified Qualified Code(s): E78.5 - Hyperlipidemia, unspecified (8) Urinary tract infection Status: Acute Qualifiers: Urinary tract infection type: site unspecified (9) Hypokalemia Status: Acute (10) Alcohol withdrawal Status: Acute Qualifiers: Complication of substance-induced condition: with delirium Qualified Code(s): F10.231 - Alcohol dependence with withdrawal delirium (11) Severe sepsis Status: Acute Comment: due to PNA and UTI (12) Alcoholic hepatitis Status: Acute Qualifiers: Ascites presence: with ascites Qualified Code(s): K70.11 - Alcoholic hepatitis with ascites (13) EtOH dependence Status: Chronic Qualifiers: Substance use status: unspecified alcohol-induced disorder Qualified Code(s): F10.29 - Alcohol dependence with unspecified alcohol-induced disorder History of Present Illness Date of Admission: 12/07/20 Chief Complaint: Generalised weakness, tarry stools, hematuria The patient is a 60 year old M with past medical history of chronic alcohol use disorder who was recently seen in the emergency department on 12/05/20 with hematuria. Patient was seen at that time, he was found to be jaundiced, labs were ordered, he did not stay to have the blood work drawn. He signed out AGAINST MEDICAL ADVICE. Patient presented back feeling generally unwell. He admits to continued use of drinking 3-4 beers and last drank on the morning of admission. He admits to having increased swelling of his legs and abdominal tension which he told me was chronic. Patient admits to having melena on the morning of admission. He denied any dizziness or chest pain. Denies any hematemesis. Patient is a poor informant. He denied any dysuria or frequency or lower abdominal discomfort or abdominal pain or nausea or vomiting. Patient's admitting blood work showed temperature of 98.6F, heart rate 100, blood pressure 128/75, respiratory rate was 14, SPO2 was 100% on room air. His admitting WBC count was 12.3, hemoglobin 7.7, platelet count 172, INR was 1.5, potassium was 3.3, chloride 105, bicarbonate 26, BUN 4, creatinine 0.67, glucose 128, lactic acid 3.8, repeat was 2.4, calcium was 7.7, magnesium was 1.9, total bilirubin was 11.4, direct bilirubin was 9.29, AST 1293, ALT 262, AL P4 25, ammonia was 34, total protein was 6.3, albumin was 1.6. Urine was slightly cloudy, glucose was normal, occult blood 250, nitrate positive, leukocyte Estrace 25, 2+ bacteria. Chest x-ray was suggestive of hyperinflation. Mild linear opacification in the right lung base suggestive of scarring. CT scan of the abdomen and pelvis was suggestive of liver steatosis, increased marking the peritoneal fat surrounding the gallbladder fossa, right perinephric stranding, left hydronephrosis, 4 mm obstructing calculus in the lower pole calyx of the left kidney, moderate degree of dilatation of the left ureter, diffuse thickening of the bladder. Abdominal ultrasound shows hepatomegaly and diffuse fatty infiltration of the liver, gallbladder wall thickening. Sludge was seen within the gallbladder lumen. Past Medical History Past Medical History (Chronic Problems): Chronic Problems (Last Reviewed 04/20/20 @ 17:[address] Татьяна Gamble DO) Hypoalbuminemia (Chronic) Hypertension (Chronic) Hyperlipidemia (Chronic) Bipolar disorder (Chronic) Tobacco dependence (Chronic) EtOH dependence (Chronic) Medical History: Medical History (Last Reviewed 04/20/20 @ 17:[address] Татьяна Gamble DO) Anxiety F41.9 Bipolar disorder F31.9 Seizure R56.9 Allergies lisinopril Allergy (Verified 12/07/20 09:55) Angioedema peanut Allergy (Verified 12/07/20 09:55) Hives Home Medications: Ambulatory Orders Medication Instructions Recorded Atorvastatin Calcium [Lipitor] 40 mg PO DAILY 03/26/20 Metoprolol Succinate [Toprol Xl] 50 mg PO DAILY 03/26/20 Folic Acid 1 mg PO DAILY@0800 #30 tab 04/27/20 Multivitamin 1 tab PO DAILY #90 tab 04/27/20 Cetirizine HCl [Zyrtec] 10 mg PO DAILY 12/07/20 Citalopram [Celexa] 20 mg PO DAILY 12/07/20 Ergocalciferol (Vitamin D2) 50,000 unit PO MO 12/07/20 [Vitamin D2] Levetiracetam [Keppra] 500 mg PO BID 12/07/20 Magnesium Oxide [Magnesium] 400 mg PO DAILY 12/07/20 Mirtazapine 45 mg PO QHS 12/07/20 Quetiapine Fumarate 200 mg PO QHS 12/07/20 Thiamine Hydrochloride [Vitamin B1] 100 mg PO BID 12/07/20 Surgical History: - - Pins and plates in left forearm Psychiatric History: Anxiety, Bipolar Lives: Alone Smoking Status: Current every day smoker Tobacco Use: Pipe Alcohol: Heavy Drugs: None - *Family History Maternal Family History: Family History (Last Reviewed 04/20/20 @ 17:[address] Татьяна Gamble DO) Father Myocardial infarction Mother Stomach cancer History Items: Cancer - stomach Paternal Family History: Family History (Last Reviewed 04/20/20 @ 17:[address] Татьяна Gamble DO) Father Myocardial infarction Mother Stomach cancer History Items: Heart Disease Review of Systems Constitutional: Reports: Anorexia, Chills, Night Sweats, Weakness, Weight Change, Fatigue. Denies: Fever Eyes: Denies: Blurred vision, Cataracts, Conjunctivae Inflammation, Pain, Redness, Vision Change HEENT: Denies: Difficulty Hearing, Difficulty Swallowing, Head Aches, Hearing Changes, Sinus Congestion, Sinus Drainage Cardiovascular: Denies: Chest Pain, Claudication, Orthopnea, Palpitations, Paroxysmal Noc. Dyspnea Respiratory: Denies: Cough, Hemoptysis, Shortness of breath at rest, Shortness of breath upon exertion, Sputum production Gastrointestinal: Reports: Melena. Denies: Abdominal Pain, Constipation, Nausea, Vomiting Genitourinary: Denies: Dysuria, Frequency, Incontinence, Nocturia, Urgency Musculoskeletal: Denies: Joint Pain, Joint stiffness, Joint swelling, Joint Tenderness Skin: Reports: Jaundice. Denies: Pruritis, Rash, Wounds Neurological: Denies: Numbness, Tingling, Focal weakness Psychiatric: Denies: Anxiety, Depression, Homicidal Ideations, Suicidal Ideations Hematologic/ Lymphatic: Denies: Easy Bruising, Easy Bleeding VTE Information - Inpt Only VTE Present on Admission: No VTE Pharm Prophylaxis ordered?: Yes Patient Problems: Active and Suspected Problems (Last Reviewed 04/20/20 @ 17:[address] Татьяна Gamble, DO) Alcoholic hepatitis with ascites (Acute) Anemia, unspecified (Acute) Jaundice (Acute) Gross hematuria (Acute) Lactic acidosis (Acute) Urinary tract infection (Acute) Hypokalemia (Acute) Alcohol withdrawal (Acute) Severe sepsis (Acute) due to PNA and UTI Alcoholic hepatitis (Acute) Seizure (Suspected) - Physical Exam Vitals/I&O's: Vital Signs Temp Pulse Resp BP Pulse Ox 98.1 F 103 H 20 H 160/85 H 97 12/07/20 16:03 12/07/20 16:03 12/07/20 16:03 12/07/20 16:03 12/07/20 16:03 Oxygen Delivery Method Room Air Weight: 84.822 kg Body Mass Index (BMI) 26.0 Finger Stick Blood Glucose 125 Intake and Output for Last 24 Hours 12/05/20 12/06/20 12/07/20 23:59 23:59 23:59 Intake Total 160.5 / 160.5 Balance 160.5 / 160.5 General: Alert, Oriented x3, Cooperative, No apparent distress, - - jaundiced, pale HEENT: Atraumatic, PERRLA, EOMI, Normocephalic Oral: Moist Mucosa Neck: Supple Lungs: Diminished - especially at the lung bases Cardiovascular: Regular rate, Regular Rhythm, Normal S1, Normal S2, No murmurs Abdomen: Bowel Sounds Present, Soft, Non Tender, Distended, Hepatomegaly, - - ?ascites Extremities: Edema - bilateral +3 Skin: No rashes, No breakdown Musculoskeletal: No Tenderness to Palpation of Joints or Extremities Lymphatic: No Cervical, Supraclavicular, or Inguinal Adenopathy Neurological: Cranial nerves II-XII grossly intact, Neuro grossly intact Psych/Mental Status: Normal Affect, Appropriate Laboratory Results 12/07/20 10:10: WBC 12.3 H, RBC 2.02 L, Hgb 7.7 L, Hct 25.4 L, MCV 125.7 H, MCH 38.1 H, MCHC 30.3 L, RDW Std Deviation 102.0 H, RDW Coeff of William 23.4 H, Plt Count 172, MPV 10.7, Immature Gran % (Auto) 1.800 H, Neut % (Auto) 60.5, Lymph % (Auto) 27.3, [place] % (Auto) 9.1, Eos % (Auto) 0.7, Baso % (Auto) 0.6, Absolute Neuts (auto) 7.5, Absolute Lymphs (auto) 3.36, Nucleated RBC % 1.2, Differential Comment SCANNED, Polychromasia 2+, Hypochromasia 1+, Anisocytosis 2+, Microcytosis 1+, Macrocytosis 2+, Stomatocytes 1+ 12/07/20 10:10: PT 17.2 H, INR 1.5, APTT 33.6 12/07/20 10:10: Sodium 138, Potassium 3.3 L, Chloride 105, Carbon Dioxide 26.0, Anion Gap 7, BUN 4 L, Creatinine 0.67 L, Estim Creat Clear Calc 121.75, Est GFR (MDRD) Af Amer 154, Est GFR (MDRD) Non-Af 127, BUN/Creatinine Ratio 5.9 L, Glucose 128 H, Calcium 7.7 L, Total Bilirubin 11.40 H, Direct Bilirubin 9.29 H, AST 1293 H, ALT 262 H, Alkaline Phosphatase 425 H, Total Protein 6.3 L, Albumin 1.6 L, Globulin 4.7 H, Lipase 255 12/07/20 10:10: Lactic Acid 3.8 H* 12/07/20 10:16: Ethyl Alcohol 130.0 12/07/20 10:40: Urine Color Roxy, Urine Clarity Sl. Cloudy, Urine pH 6.5, Ur Specific [place] 1.015, Urine Protein 100 H, Urine Glucose (UA) Normal, Urine Ketones 5 H, Urine Occult Blood 250 H, Urine Nitrite Positive H, Urine Bilirubin 6 H, Urine Urobilinogen 12 H, Ur Leukocyte Esterase 25 H, Urine RBC 0 SEEN, Urine WBC 0-5 SEEN, Ur Squamous Epith Cells 0 SEEN, Ur Renal Epithelial Cell 0-5 SEEN, Amorphous Sediment 1+, Urine Bacteria 2+, Hyaline Casts 0-5 SEEN, Fine Granular Casts 5-10 SEEN, WBC Casts 0-5 SEEN, Urine Mucus 0 SEEN 12/07/20 11:00: POC Glucose 125 H 12/07/20 11:05: Ammonia 34.0 H 12/07/20 11:05: Magnesium 1.9 12/07/20 11:16: Blood Type O POSITIVE, Antibody Screen NEGATIVE 12/07/20 14:20: Lactic Acid 2.4 H* Assessment/Plan All Active Problems (Last Reviewed 04/20/20 @ 17:[address] Татьяна Gamble, DO) Alcoholic hepatitis with ascites (Acute) Anemia, unspecified (Acute) Jaundice (Acute) Gross hematuria (Acute) Lactic acidosis (Acute) Urinary tract infection (Acute) Hypokalemia (Acute) Elevated CPK (Acute) Alcohol withdrawal (Acute) Severe sepsis (Acute) Alcoholic hepatitis (Acute) Hyponatremia (Acute) 1. Acute liver failure, likely secondary to acute alcoholic hepatitis Patient's MELD score is 20, alcohol discriminant function is 39.9 which points to poor prognosis CT of the abdomen and pelvis showed diffuse fatty infiltration of the liver Ultrasound of the liver does hepatomegaly and diffuse fatty infiltration of the liver, gallbladder wall thickening,/seen in the gallbladder lumen Patient's admitting bilirubin is 11.4, direct bilirubin is 9.29, AST is 1293, ALT is 262, ALP is 425, ammonia is 34, albumin is 1.6, INR is 1.5 Check salicylate, acetaminophen levels, acute hepatitis Start lactulose for hepatic encephalopathy, continue on IV Lasix Start also on prednisone for acute alcoholic hepatitis Discussed earlier on with ED physician and recommendations made to transfer patient for further work-up in a tertiary center Patient refused transfer to be transferred to a tertiary center. He was deemed to have medical decision making capacity. I discussed patient's prognosis with him; initially when I asked him to tell me why he understands about his current clinical condition, patient stated that when he gets home he is going to stop drinking. I pushed him to tell me what he understands about the gravity of his current medical condition; he admits that he knows he is very sick. He also stated that he does not care if he dies. He denies being suicidal. I inquired about any support or family that I could discuss with. Patient stated that no, he has no one and does not want me to discuss with anyone else. I inquired if he had children or spouse. He stated that he has children but he is not close to them. I discussed about CODE STATUS and he stated to me clearly that he does not want to be intubated. I explained then that would make him a DNR CCA no intubation. He agreed. I also detailed out management plan for him including supportive treatment with IV fluids, IV antibiotics and closely monitoring his blood work in the ICU. I also recommended hospice consult for further management should he decline significant. Patient was in agreement with hospice consult. 2. Acute on chronic GI bleed, unclear etiology, likely secondary to variceal bleed in a known alcoholic with cirrhosis Patient's baseline hemoglobin is around 9.6, he was admitted with 7.7 hemoglobin, dropped to 6.8 History of melena stools given by patient. Patient is aware that we are unable to manage his possible variceal bleed in the hospital. Would continue with conservative treatment with checking stool for occult blood, transfusing as needed Start with 1 unit of packed RBC transfusion 3. Severe sepsis likely secondary to Acute UTI, started on IV ceftriaxone and gentamicin Will continue on IV Zosyn, follow-up with urine cultures 4. Hypokalemia, potassium was 3.3, replace, recheck in a.m. 5. Hypomagnesium, magnesium is 1.9, replaced recheck in a.m. 6. Acute alcohol withdrawal, in a patient with chronic heavy alcohol use, admitted with alcohol level of 130 7. Seizure disorder, continue on Keppra 8. Hypertension, uncontrolled likely secondary to alcohol withdrawal Continue on metoprolol, hydralazine as needed 9. Bipolar disorder/anxiety, continue on Celexa, Seroquel, Remeron 10. Bilateral leg edema likely related to acute liver failure, will rule DVT with doppler ultrasounds 11. DVT PPx- SCDs Inpatient E&M: 14684 Subs Hosp L3 Procedures: 30057 Advncd Care Plan 30 Min
--- NOTE | 2020-12-07 17:34 | ED.RN ---
REPORT CALLED TO ICU NURSE SBARQ AND NO QUESTIONS
--- NOTE | 2020-12-07 18:24 | VDLE_ITS ---
Reason For Study: SWELLING RIGHT LEFT GSV is normal. GSV is normal. CFV is compressible, spontaneous, phasic, CFV is compressible, spontaneous, phasic, competent and demonstrates normal competent, and demonstrates normal augmentation. augmentation. FV is compressible, spontaneous, phasic, FV is compressible, spontaneous, phasic, competent and demonstrates normal competent and demonstrates normal augmentation. augmentation. POP V is compressible, spontaneous, phasic, POP V is compressible, spontaneous, phasic, competent and demonstrates normal competent and demonstrates normal augmentation. augmentation. T/P Trunk is compressible. T/P Trunk is compressible. PTV is compressible. PTV is compressible. RT PerV is compressible. LT PerV is compressible. Procedure This is a venous duplex using B-mode, color flow and spectral Doppler. Exam performed portable in ICU/CCU. The exam was diagnostic. A preliminary report was called and/or faxed to ICU. Interpretation Summary No evidence for acute deep venous thrombosis bilateral lower extremities with patent and compressible bilateral great saphenous veins. Right popliteal fossa 2.37 x 0.85 cm nonvascular cyst consistent with a Pink's cyst, clinical correlation would be appropriate. Ordering Physician: Kamilah Johnson Referring Physician: BERTHA PCP Performed By: Tamika Harris, SANJEEV, RVT
[2020-12-07] MEDS: LORazepam 1 MG Tablet 0.5 MG PO ×2 (18:35→21:55)
[2020-12-07 18:38] LABS: Hematocrit 22.2 % (40-54); Hemoglobin 6.8 g/dL (13.0-16.5)
[2020-12-07] MEDS: 0.9% Normal Saline 1,000 ML 125 ML IV (18:44)
[2020-12-07 19:52] LABS: Acetaminophen (Tylenol) Level < 2.0 ug/mL (10.0-30.0); Salicylate < 1.7 mg/dL (2.8-20.0)
[2020-12-07] MEDS: predniSONE 20 MG Tablet 60 MG PO (21:52)
[2020-12-07] MEDS: Lactulose 20 GM/30 ML UDC PO (21:52)
[2020-12-07] MEDS: Furosemide 40 MG/4 ML Vial IV (21:52)
[2020-12-07] MEDS: levETIRAcetam 500 MG Tablet PO (21:52)
[2020-12-07] MEDS: Mirtazapine 15 MG Tablet 45 MG PO (21:52)
[2020-12-07] MEDS: Atorvastatin Calcium 40 MG Tablet PO (21:52)
[2020-12-07] MEDS: QUEtiapine 100 MG Tablet 200 MG PO (21:52)
[2020-12-07] MEDS: Potassium Chloride 10mEq/100mL 10 MEQ/100 ML IV.SOLN. 100 MEQ IV BOLUS (22:46)
[2020-12-07 23:46] LABS: Hematocrit 25.6 % (40-54); Hemoglobin 7.9 g/dL (13.0-16.5)
[2020-12-07] MEDS: 0.9% Saline Lock 10 ML Syringe IV (23:49)
[2020-12-08] VITALS (22 sets, daily range): BP systolic 113–169; BP diastolic 60–99; PULSE 83–123; RESP 16–20; TEMP 36.5–37.4; O2SAT 90–98
[2020-12-08] MEDS: Potassium Chloride 10mEq/100mL 10 MEQ/100 ML IV.SOLN. 100 MEQ IV BOLUS ×5 (00:04→11:12)
--- NOTE | 2020-12-08 00:28 | NURSING ---
This RN heard pt. swearing from room. Went in to see what the issue was. Pt. stated I want to go home. This RN explained that it is 0030 at night and there isn't any way for him to go home now. The pt. said that come 6am he will leave. Explained to pt. that he is very sick and needs to stay for treatment. Asked pt. if he was still interested in hospice. Pt. stated no. This RN explained that if he goes home, he will most likely . Pt. stated that he was ready. Pt. was unable to even get from the bed to the chair without assistance. Pt. closed eyes and ignored this RN. Will monitor.
[2020-12-08] MEDS: LORazepam 1 MG Tablet 0.5 MG PO ×6 (01:52→21:24)
[2020-12-08] MEDS: Haloperidol Lactate 5 MG/ML Vial 2 MG IV (04:30)
[2020-12-08] MEDS: 0.9% Saline Lock 10 ML Syringe IV (04:30)
[2020-12-08 05:03] LABS: Absolute Neutrophil Count 7.4 X10^3/uL (2.0-7.7); Basophil# 0.02 X10^3/uL; Basophil% 0.2 % (0-1); Hematocrit 24.6 % (40-54); Hemoglobin 7.7 g/dL (13.0-16.5); Lymphocyte % 14.9 % (19-41); Mean Corp Hgb Conc 31.3 g/dL (32-36); Mean Corpuscular Hgb 36.8 pg (27.0-32.0); Mean Corpuscular Volume 117.7 fL (80-94); Mean Platelet Vol. 10.4 fl (6.2-12.0); Monocyte# 0.41 X10^3/uL; Monocyte% 4.4 % (0-10); NRBC Flagged by Analyzer 1.9 % (0-5); Neutrophil # 7.38 X10^3/uL (2.7-7.7); Neutrophil % 78.4 % (47-70); POSITIVE MORPHOLOGY YES; Platelet Count 151 K/mm3 (150-450); RBC Distribution Width CV 27.1 % (11.6-14.6); Red Blood Count 2.09 M/mm3 (4.6-6.2); White Blood Count 9.4 K/mm3 (4.4-11.0)
[2020-12-08 05:18] LABS: RBC Distribution Width SD 108.5 fl (35.1-43.9)
[2020-12-08 05:20] LABS: Differential Indicated SCAN CRITERIA MET
[2020-12-08 05:31] LABS: ALB/GLOB Ratio 0.3 RATIO (0.9-2.4); AST(SGOT) 1025 U/L (15-37); Alanine Aminotransfer ALT/SGPT 219 U/L (16-61); Albumin, Serum 1.4 g/dL (3.2-5.0); Alkaline Phosphatase 370 U/L (45-117); Anion Gap 6 (5-15); BUN 4 mg/dL (7-18); Calcium,Total 7.3 mg/dL (8.5-10.1); Chloride 104 mmol/L (98-107); Creatinine, Serum 0.67 mg/dL (0.70-1.30); EST Glomerular Filtration Rate 127 mL/min (>60); Est Glom Filt Rate - Afr Amer 154 mL/min (>60); Estimated Creatinine Clearance 121.75 ml/min; Globulin 4.2 g/dL (2.2-4.2); Glucose 167 mg/dL (74-106); Potassium 3.3 mmol/L (3.5-5.1); Protein, Total 5.6 g/dL (6.4-8.2); Sodium Level 139 mmol/L (136-145)
[2020-12-08 05:50] LABS: Differential Comment SCANNED
[2020-12-08 05:51] LABS: Macrocytosis 2+
[2020-12-08 05:52] LABS: Anisocytosis 3+; Microcytosis 1+; Polychromasia 1+
--- NOTE | 2020-12-08 08:06 | PN_ITS ---
Patient Problems: Active and Suspected Problems (Last Reviewed 04/20/20 @ 17:[address] Татьяна Gamble, DO) Alcoholic hepatitis with ascites (Acute) Anemia, unspecified (Acute) Jaundice (Acute) Gross hematuria (Acute) Lactic acidosis (Acute) Urinary tract infection (Acute) Hypokalemia (Acute) Alcohol withdrawal (Acute) Severe sepsis (Acute) due to PNA and UTI Alcoholic hepatitis (Acute) Seizure (Suspected) Reason for Visit: Follow-up on acute liver failure/severe sepsis Subjective: Patient was seen and examined. Patient was medicated this morning for agitation with Haldol. He was sleepy. He is easily arousable and stated that he was feeling a little better. He stated that he knows he is not well. He knows that hospice will be meeting with him. Objective: Physical exam: General: Alert, Oriented x3, Cooperative, No apparent distress,lethargic - - jaundiced, pale, anasarca HEENT: Atraumatic, PERRLA, EOMI, Normocephalic Oral: Moist Mucosa Neck: Supple Lungs: Diminished - especially at the lung bases Cardiovascular: Regular rate, Regular Rhythm, Normal S1, Normal S2, No murmurs Abdomen: Bowel Sounds Present, Soft, Non Tender, Distended, Hepatomegaly, - - ?ascites Extremities: Edema - bilateral +3 Skin: No rashes, No breakdown Musculoskeletal: No Tenderness to Palpation of Joints or Extremities Lymphatic: No Cervical, Supraclavicular, or Inguinal Adenopathy Neurological: Cranial nerves II-XII grossly intact, Neuro grossly intact Psych/Mental Status: Normal Affect, Appropriate Vitals/I&O's: Vital Signs Temp Pulse Resp BP Pulse Ox 99.4 F H 102 H 18 133/66 H 96 12/08/20 04:00 12/08/20 08:00 12/08/20 08:00 12/08/20 08:00 12/08/20 08:00 Oxygen Flow Rate (L/min) 2 Oxygen Delivery Method Nasal Cannula Weight: 91.7 kg Body Mass Index (BMI) 27.8 Finger Stick Blood Glucose 125 Intake and Output for Last 24 Hours 12/06/20 12/07/20 12/08/20 23:59 23:59 23:59 Intake Total 2256.83 / 2256.83 943.75 / 943.75 Output Total 2301 / 2301 950 / 950 Balance -44.17 / -44.17 -6.25 / -6.25 Laboratory Results 12/07/20 10:10: WBC 12.3 H, RBC 2.02 L, Hgb 7.7 L, Hct 25.4 L, MCV 125.7 H, MCH 38.1 H, MCHC 30.3 L, RDW Std Deviation 102.0 H, RDW Coeff of William 23.4 H, Plt Count 172, MPV 10.7, Immature Gran % (Auto) 1.800 H, Neut % (Auto) 60.5, Lymph % (Auto) 27.3, Yates % (Auto) 9.1, Eos % (Auto) 0.7, Baso % (Auto) 0.6, Absolute Neuts (auto) 7.5, Absolute Lymphs (auto) 3.36, Nucleated RBC % 1.2, Differential Comment SCANNED, Polychromasia 2+, Hypochromasia 1+, Anisocytosis 2+, Microcytosis 1+, Macrocytosis 2+, Stomatocytes 1+ 12/07/20 10:10: PT 17.2 H, INR 1.5, APTT 33.6 12/07/20 10:10: Sodium 138, Potassium 3.3 L, Chloride 105, Carbon Dioxide 26.0, Anion Gap 7, BUN 4 L, Creatinine 0.67 L, Estim Creat Clear Calc 121.75, Est GFR (MDRD) Af Amer 154, Est GFR (MDRD) Non-Af 127, BUN/Creatinine Ratio 5.9 L, Glucose 128 H, Calcium 7.7 L, Total Bilirubin 11.40 H, Direct Bilirubin 9.29 H, AST 1293 H, ALT 262 H, Alkaline Phosphatase 425 H, Total Protein 6.3 L, Albumin 1.6 L, Globulin 4.7 H, Lipase 255 12/07/20 10:10: Lactic Acid 3.8 H* 12/07/20 10:16: Ethyl Alcohol 130.0 12/07/20 10:40: Urine Color Roxy, Urine Clarity Sl. Cloudy, Urine pH 6.5, Ur Specific [place] 1.015, Urine Protein 100 H, Urine Glucose (UA) Normal, Urine Ketones 5 H, Urine Occult Blood 250 H, Urine Nitrite Positive H, Urine Bilirubin 6 H, Urine Urobilinogen 12 H, Ur Leukocyte Esterase 25 H, Urine RBC 0 SEEN, Urine WBC 0-5 SEEN, Ur Squamous Epith Cells 0 SEEN, Ur Renal Epithelial Cell 0-5 SEEN, Amorphous Sediment 1+, Urine Bacteria 2+, Hyaline Casts 0-5 SEEN, Fine Granular Casts 5-10 SEEN, WBC Casts 0-5 SEEN, Urine Mucus 0 SEEN 12/07/20 11:00: POC Glucose 125 H 12/07/20 11:05: Ammonia 34.0 H 12/07/20 11:05: Magnesium 1.9 12/07/20 11:16: Blood Type O POSITIVE, Antibody Screen NEGATIVE 12/07/20 11:16: Crossmatch See Detail 12/07/20 14:20: Lactic Acid 2.4 H* 12/07/20 18:30: Salicylates < 1.7 L, Acetaminophen < 2.0 L 12/07/20 18:30: Hepatitis A IgM Ab Pending, Hep Bs Antigen Pending, Hep B Core IgM Ab Pending, Hepatitis C Ab (EIA) Pending 12/07/20 18:30: Hgb 6.8 L, Hct 22.2 L 12/07/20 23:20: Hgb 7.9 L, Hct 25.6 L 12/08/20 04:30: Sodium Cancelled, Potassium Cancelled, Chloride Cancelled, Carbon Dioxide Cancelled, Anion Gap Cancelled, BUN Cancelled, Creatinine Cancelled, Estim Creat Clear Calc Cancelled, Est GFR (MDRD) Af Amer Cancelled, Est GFR (MDRD) Non-Af Cancelled, BUN/Creatinine Ratio Cancelled, Glucose Cancelled, Calcium Cancelled, Total Bilirubin Cancelled, AST Cancelled, ALT Cancelled, Alkaline Phosphatase Cancelled, Total Protein Cancelled, Albumin Cancelled, Globulin Cancelled, Albumin/Globulin Ratio Cancelled 12/08/20 04:45: Sodium 139, Potassium 3.3 L, Chloride 104, Carbon Dioxide 29.0, Anion Gap 6, BUN 4 L, Creatinine 0.67 L, Estim Creat Clear Calc 121.75, Est GFR (MDRD) Af Amer 154, Est GFR (MDRD) Non-Af 127, BUN/Creatinine Ratio 6.0 L, Glucose 167 H, Calcium 7.3 L, Total Bilirubin 9.60 H, AST 1025 H, ALT 219 H, Alkaline Phosphatase 370 H, Total Protein 5.6 L, Albumin 1.4 L, Globulin 4.2, Albumin/Globulin Ratio 0.3 L 12/08/20 04:55: WBC 9.4, RBC 2.09 L, Hgb 7.7 L, Hct 24.6 L, MCV 117.7 H D, MCH 36.8 H, MCHC 31.3 L, RDW Std Deviation 108.5 H, RDW Coeff of William 27.1 H, Plt Count 151, MPV 10.4, Immature Gran % (Auto) 2.100 H, Neut % (Auto) 78.4 H, Lymph % (Auto) 14.9 L, Yates % (Auto) 4.4, Eos % (Auto) 0.0, Baso % (Auto) 0.2, Absolute Neuts (auto) 7.4, Absolute Lymphs (auto) 1.40, Nucleated RBC % 1.9, Differential Comment SCANNED, Polychromasia 1+, Anisocytosis 3+, Microcytosis 1+, Macrocytosis 2+ 12/08/20 07:35: PT Pending, INR Pending 12/08/20 07:35: Ammonia Pending Current Medications Albuterol Sulfate (Albuterol 2.5 Mg/3 Ml Vial.Neb.) 2.5 mg INHALATION Q2H PRN PRN PRN Reason: SOB/Wheezing Atorvastatin Calcium (Atorvastatin Calcium 40 Mg Tablet) 40 mg PO DAILY@2200 [facility] Last Admin: 12/07/20 21:52 Dose: 40 mg Documented by: Citalopram Hydrobromide (Citalopram 20 Mg Tablet) 20 mg PO DAILY [facility] Dicyclomine HCl (Dicyclomine 10 Mg Capsule) 20 mg PO Q6H PRN PRN PRN Reason: abdominal discomfort Folic Acid (Folic Acid 1 Mg Tablet) 1 mg PO DAILY@0800 [facility] Furosemide (Furosemide 40 Mg/4 Ml Vial) 40 mg IV BID@1000,1800 [facility] Last Admin: 12/07/20 21:52 Dose: 40 mg Documented by: Hydralazine HCl (Hydralazine 20 Mg/Ml Vial) 5 mg IV Q4H PRN PRN PRN Reason: BLOOD PRESSURE Piperacillin Sod/Tazobactam (Sod 3.375 gm/ Sodium Chloride) 50 mls @ 12.5 mls/hr IV Q8 [facility] Last Admin: 12/08/20 05:51 Dose: 12.5 mls/hr Documented by: Pantoprazole Sodium 40 mg/ (Sodium Chloride) 110 mls @ 330 mls/hr IV Q12 [facility] Last Infusion: 12/07/20 21:22 Dose: Infused Documented by: Potassium Chloride () 10 meq in 100 mls @ 100 mls/hr IV BOLUS Q1H [facility] Stop: 12/08/20 11:29 Lactulose (Lactulose 20 Gm/30 Ml Udc) 20 gm PO BID [facility] Last Admin: 12/07/20 22:03 Dose: Not Given Documented by: Levetiracetam (Levetiracetam 500 Mg Tablet) 500 mg PO BID [facility] Last Admin: 12/07/20 21:52 Dose: 500 mg Documented by: Loperamide HCl (Loperamide 2 Mg Capsule) 2 mg PO Q4H PRN PRN PRN Reason: LOOSE STOOLS Lorazepam (Lorazepam 1 Mg Tablet) 2 mg PO Q4H [facility]; Taper Stop: 12/12/20 02:29 Last Admin: 12/08/20 05:51 Dose: 2 mg Documented by: Magnesium Chloride (Magnesium Chloride 64 Mg Delay Rel.Tablet) 128 mg PO DAILY [facility] Magnesium Hydroxide (Magnesium Hydroxide 30 Ml Udc) 30 ml PO DAILY PRN PRN PRN Reason: Constipation Metoprolol Succinate (Metoprolol(Xl)Succ 50 Mg Tablet) 50 mg PO DAILY [facility] Mirtazapine (Mirtazapine 15 Mg Tablet) 45 mg PO QHS [facility] Last Admin: 12/07/20 21:52 Dose: 45 mg Documented by: Multivitamins (Multivitamins,Therapeutic Tablet) 1 tablet PO DAILY@0800 [facility] Polyethylene Glycol (Polyethylene Glycol 3350 17 Gm Packet) 17 gm PO DAILY [facility] Prednisone (Prednisone 20 Mg Tablet) 60 mg PO DAILY@0800 [facility] Last Admin: 12/07/20 21:52 Dose: 60 mg Documented by: Psyllium Hydrophilic Mucilloid (Psyllium 1 Packet) 1 packet PO DAILY PRN PRN PRN Reason: Constipation Quetiapine Fumarate (Quetiapine 100 Mg Tablet) 200 mg PO QHS [facility] Last Admin: 12/07/20 21:52 Dose: 200 mg Documented by: Senna/Docusate Sodium (Senna/Docusate Sodium 1 Tablet) 2 tablet PO BID PRN PRN PRN Reason: Constipation Sodium Chloride (0.9% Saline Lock 10 Ml Syringe) 10 - 40 ml IV UD PRN PRN Reason: SALINE FLUSH Last Admin: 12/08/20 04:30 Dose: 10 ml Documented by: Thiamine HCl (Thiamine Hydrochloride 100 Mg Tablet) 100 mg PO BIDCM PAWAN STROKE Vital Signs/Narrative: Vital Signs Pulse Resp BP Pulse Ox 12/08/20 08:00 102 H 18 133/66 H 96 12/08/20 07:57 102 H 12/08/20 07:00 103 H 16 113/60 96 12/08/20 06:00 114 H 20 H 161/87 H 93 12/08/20 05:00 115 H 17 155/80 H 92 Medical Necessity - Tobacco Use Smoking Status: Current every day smoker Tobacco Use: Pipe Assessment/Plan All Active Problems (Last Reviewed 04/20/20 @ 17:[address] Татьяна Gamble, DO) Alcoholic hepatitis with ascites (Acute) Anemia, unspecified (Acute) Jaundice (Acute) Gross hematuria (Acute) Lactic acidosis (Acute) Urinary tract infection (Acute) Hypokalemia (Acute) Elevated CPK (Acute) Alcohol withdrawal (Acute) Severe sepsis (Acute) Alcoholic hepatitis (Acute) Hyponatremia (Acute) 1. Acute liver failure, likely secondary to acute alcoholic hepatitis, minimally improved Some improvement in his total bilirubin, direct bilirubin, AST, ALT, ALP Patient's admitting MELD score is 20, alcohol discriminant function is 39.9 which points to poor prognosis CT of the abdomen and pelvis showed diffuse fatty infiltration of the liver Ultrasound of the liver does hepatomegaly and diffuse fatty infiltration of the liver, gallbladder wall thickening,/seen in the gallbladder lumen Patient's admitting bilirubin is 11.4, direct bilirubin is 9.29, AST is 1293, ALT is 262, ALP is 425, ammonia is 34, albumin is 1.6, INR is 1.5 Salicylate and acetaminophen levels is unremarkable; acute hepatitis panel is pending Started on lactulose, prednisone, Lasix Will switch to prednisolone 40 mg p.o. daily 2. Severe anemia, Hb is 7.7 today, status post 1 unit packed RBC, unclear etiology, Likely secondary to probable acute on chronic GI bleed Will continue to trend H&H every 4h 3. Probable Acute on chronic GI bleed, patient reports history of melena, FOBT has been negative, continued on IV PPI twice daily 4. Severe sepsis likely secondary to Acute UTI, Started on IV ceftriaxone and gentamicin Will continue on IV Zosyn, follow-up with urine cultures 5. Hypokalemia, potassium was 3.3, replace, recheck in a.m. 6. Hypomagnesium, magnesium is 1.8, replaced, recheck in a.m. 7. Acute alcohol withdrawal, in a patient with chronic heavy alcohol use, admitted with alcohol level of 130 Will continue with Ativan withdrawal 8. Seizure disorder, continue on Keppra 9. Hypertension, uncontrolled likely secondary to alcohol withdrawal Continue on metoprolol, hydralazine as needed 10. Bipolar disorder/anxiety, continue on Celexa, Seroquel, Remeron 11. Bilateral leg edema likely related to acute liver failure, acute DVT ruled out from negative dopplers. 12. DVT PPx- SCDs Inpatient E&M: 96877 Subs Hosp L3
[2020-12-08 08:23] LABS: International Normalized Ratio 1.5; Prothrombin Time (Protime)PT. 17.4 SECONDS (11.7-14.9)
--- NOTE | 2020-12-08 08:47 | CASEMGMT ---
Addendum entered by Ena Singh 12/08/20 09:18: SW spoke w/Thong from [facility], she can come over to see pt this morning before 11am or after 1pm. SW spoke w/pt briefly, RN woke pt for SW. Pt states he wants to be left alone. SW let pt know hospice will be coming this afternoon. SW called Thong back from [facility] and explained pt is very sleepy at present and this afternoon may be better. Thong plans to come after 2pm this afternoon to see pt. BENITO Sanchez Original Note: As per physician, pt is agreeable to hospice. WILD called mixing machine operator to have machine clothing replacer paged, faxed referral to [facility]. SW awaiting call back. TETE Sanchez
[2020-12-08 08:59] LABS: Bilirubin, Direct 7.93 mg/dL (0.00-0.30); Magnesium 1.8 mg/dL (1.6-2.6)
[2020-12-08] MEDS: Folic Acid 1 MG Tablet PO (09:51)
[2020-12-08] MEDS: Multivitamins,Therapeutic Tablet 1 TABLET PO (09:52)
[2020-12-08] MEDS: predniSONE 20 MG Tablet 60 MG PO (09:52)
[2020-12-08] MEDS: Magnesium Chloride 64 MG Delay Rel.Tablet 128 MG PO (09:52)
[2020-12-08] MEDS: Thiamine Hydrochloride 100 MG Tablet PO ×2 (09:52→17:10)
[2020-12-08] MEDS: Lactulose 20 GM/30 ML UDC PO ×2 (09:53→21:23)
[2020-12-08] MEDS: Furosemide 40 MG/4 ML Vial IV ×2 (09:53→18:06)
[2020-12-08] MEDS: Citalopram 20 MG Tablet PO (09:53)
[2020-12-08] MEDS: Metoprolol(XL)Succ 50 MG Tablet PO (09:54)
[2020-12-08] MEDS: Polyethylene Glycol 3350 17 GM PACKET PO (09:54)
[2020-12-08] MEDS: levETIRAcetam 500 MG Tablet PO ×2 (09:54→21:23)
[2020-12-08] MEDS: Psyllium 1 PACKET PO (11:31)
--- NOTE | 2020-12-08 14:39 | CASEMGMT ---
Addendum entered by Ena Singh 12/08/20 15:47: Hospice came to see pt, he stated to hospice worker he may consider hospice in the inpt unit or at home, but is not going to sign up for hospice until he speaks w/his manager case management at [facility]. Pt also told her he is not staying here until Thursday and will go home. Physician aware, she will not discharge pt, so if he decides to leave he will need to leave AMA. W/pt's permission SW did try to call pt's manager case management, Dinaa, left a message asking her to call this SW Thursday and to call pt in ICU if she gets the message. SW will follow up Thursday w/hospice, and w/pt as well if he is still here. TETE Sanchez Original Note: SW spoke w/pt at the bedside, let him know that Hospice is here to see him. Pt states he just wants to go home. SW asked pt if he feels he can take care of himself at home, pt states he can. SW asked pt about family, pt states has no siblings, states has not seen his children in 40 years. When asked about family, pt states he only has his neighbors. SW will continue to follow. TETE Sanchez
[2020-12-08 16:04] LABS: Hematocrit 24.7 % (40-54); Hemoglobin 7.7 g/dL (13.0-16.5)
[2020-12-08] MEDS: Mirtazapine 15 MG Tablet 45 MG PO (21:23)
[2020-12-08] MEDS: QUEtiapine 100 MG Tablet 200 MG PO (21:24)
[2020-12-08] MEDS: Atorvastatin Calcium 40 MG Tablet PO (21:24)
[2020-12-08 21:40] LABS: Hematocrit 28.5 % (40-54); Hemoglobin 8.4 g/dL (13.0-16.5)
[2020-12-09] VITALS (8 sets, daily range): BP systolic 139–150; BP diastolic 77–94; PULSE 77–101; RESP 18–20; TEMP 36.1–36.6; O2SAT 94–98
[2020-12-09 01:40] LABS: Hemoglobin 7.8 g/dL (13.0-16.5)
[2020-12-09] MEDS: LORazepam 1 MG Tablet 0.5 MG PO ×6 (03:05→21:50)
[2020-12-09 06:01] LABS: Absolute Lymphocyte Count 1.48 X10^3/uL (0.83-4.51); Absolute Neutrophil Count 6.9 X10^3/uL (2.0-7.7); Basophil# 0.01 X10^3/uL; Basophil% 0.1 % (0-1); Hematocrit 24.7 % (40-54); Hemoglobin 7.5 g/dL (13.0-16.5); Lymphocyte # 1.48 X10^3/ul (4.0); Mean Corp Hgb Conc 30.4 g/dL (32-36); Mean Corpuscular Hgb 36.2 pg (27.0-32.0); Mean Corpuscular Volume 119.3 fL (80-94); Mean Platelet Vol. 9.9 fl (6.2-12.0); Monocyte# 0.73 X10^3/uL; Monocyte% 7.9 % (0-10); NRBC Flagged by Analyzer 0.6 % (0-5); Neutrophil % 74.7 % (47-70); POSITIVE MORPHOLOGY YES; Platelet Count 168 K/mm3 (150-450); RBC Distribution Width CV 26.5 % (11.6-14.6); Red Blood Count 2.07 M/mm3 (4.6-6.2); White Blood Count 9.2 K/mm3 (4.4-11.0)
[2020-12-09 06:02] LABS: Differential Indicated SCAN CRITERIA MET; RBC Distribution Width SD 109.8 fl (35.1-43.9)
[2020-12-09 06:11] LABS: International Normalized Ratio 1.5; Prothrombin Time (Protime)PT. 17.3 SECONDS (11.7-14.9)
[2020-12-09 06:32] LABS: Macrocytosis 2+; Polychromasia 2+
[2020-12-09 07:15] LABS: ALB/GLOB Ratio 0.3 RATIO (0.9-2.4); AST(SGOT) 847 U/L (15-37); Alanine Aminotransfer ALT/SGPT 225 U/L (16-61); Albumin, Serum 1.5 g/dL (3.2-5.0); Alkaline Phosphatase 327 U/L (45-117); Anion Gap 7 (5-15); BUN 7 mg/dL (7-18); BUN/Creat Ratio 11.1 RATIO (10-20); Bilirubin, Direct 7.62 mg/dL (0.00-0.30); Calcium,Total 7.6 mg/dL (8.5-10.1); Chloride 101 mmol/L (98-107); Creatinine, Serum 0.63 mg/dL (0.70-1.30); EST Glomerular Filtration Rate 137 mL/min (>60); Est Glom Filt Rate - Afr Amer 166 mL/min (>60); Estimated Creatinine Clearance 129.48 ml/min; Globulin 4.3 g/dL (2.2-4.2); Glucose 120 mg/dL (74-106); Potassium 2.5 mmol/L (3.5-5.1); Protein, Total 5.8 g/dL (6.4-8.2); Sodium Level 140 mmol/L (136-145)
--- NOTE | 2020-12-09 07:22 | PN_ITS ---
Patient Problems: Active and Suspected Problems (Last Reviewed 04/20/20 @ 17:[address] Татьяна Gamble, DO) Alcoholic hepatitis with ascites (Acute) Anemia, unspecified (Acute) Jaundice (Acute) Gross hematuria (Acute) Lactic acidosis (Acute) Urinary tract infection (Acute) Hypokalemia (Acute) Alcohol withdrawal (Acute) Severe sepsis (Acute) due to PNA and UTI Alcoholic hepatitis (Acute) Seizure (Suspected) Reason for Visit: Follow-up on acute liver failure/severe sepsis Subjective: Patient was seen and examined. Yesterday, he was seen by the social sciences research scientist and hospice. Refused to be admitted to the inpatient hospice facility. Declined discharge home with hospice until he talks to his field nurse case manager, Diana. He said his kids were and gone. He had no family members around. I spoke to his field nurse case manager, Diana today. He has been working with him for a couple of years for mental health issues significantly depression and anxiety. She coordinates his follow-up with the counseling center and his other appointments. She is unaware of anyone close by. She however would see if she could talk to some of his friends to see if there is any family member. Objective: Physical exam: General: Alert, Oriented x3, Cooperative, No apparent distress,lethargic - - jaundiced, pale, anasarca HEENT: Atraumatic, PERRLA, EOMI, Normocephalic Oral: Moist Mucosa Neck: Supple Lungs: Diminished - especially at the lung bases Cardiovascular: Regular rate, Regular Rhythm, Normal S1, Normal S2, No murmurs Abdomen: Bowel Sounds Present, Soft, Non Tender, Distended, Hepatomegaly, - - ?ascites Extremities: Edema - bilateral +3 Skin: No rashes, No breakdown Musculoskeletal: No Tenderness to Palpation of Joints or Extremities Lymphatic: No Cervical, Supraclavicular, or Inguinal Adenopathy Neurological: Cranial nerves II-XII grossly intact, Neuro grossly intact Psych/Mental Status: Normal Affect, Appropriate Vitals/I&O's: Vital Signs Temp Pulse Resp BP Pulse Ox 97.5 F L 92 18 149/77 H 95 12/09/20 02:56 12/09/20 02:56 12/09/20 02:56 12/09/20 02:56 12/09/20 02:56 Oxygen Flow Rate (L/min) 2 Oxygen Delivery Method Room Air Weight: 86.8 kg Body Mass Index (BMI) 27.8 Finger Stick Blood Glucose 125 Intake and Output for Last 24 Hours 12/07/20 12/08/20 12/09/20 23:59 23:59 23:59 Intake Total 2256.83 / 2256.83 1645.42 / 1645.42 50 / 50 Output Total 2301 / 2301 3105 / 3105 Balance -44.17 / -44.17 -1459.58 / -1459.58 50 / 50 Microbiology Past 72 Hours 12/07/20 10:40 Urine Catheter - Farris Urine Culture - Preliminary Culture exhibits no growth. 12/08/20 08:49 Stool Stool Occult Blood (JEFFY) - Final Laboratory Results 12/08/20 07:35: Magnesium 1.8, Direct Bilirubin 7.93 H 12/08/20 07:35: PT 17.4 H, INR 1.5 12/08/20 07:35: Ammonia 43.0 H 12/08/20 15:45: Hgb 7.7 L, Hct 24.7 L 12/08/20 21:30: Hgb 8.4 L, Hct 28.5 L 12/09/20 01:31: Hgb 7.8 L, Hct 25.0 L 12/09/20 05:51: WBC 9.2, RBC 2.07 L, Hgb 7.5 L, Hct 24.7 L, MCV 119.3 H, MCH 36.2 H, MCHC 30.4 L, RDW Std Deviation 109.8 H, RDW Coeff of William 26.5 H, Plt Count 168, MPV 9.9, Immature Gran % (Auto) 1.300 H, Neut % (Auto) 74.7 H, Lymph % (Auto) 16.0 L, Collin % (Auto) 7.9, Eos % (Auto) 0.0, Baso % (Auto) 0.1, Absolute Neuts (auto) 6.9, Absolute Lymphs (auto) 1.48, Nucleated RBC % 0.6, Polychromasia 2+, Macrocytosis 2+ 12/09/20 05:51: Sodium 140, Potassium 2.5 L*, Chloride 101, Carbon Dioxide 32.0, Anion Gap 7, BUN 7, Creatinine 0.63 L, Estim Creat Clear Calc 129.48, Est GFR (MDRD) Af Amer 166, Est GFR (MDRD) Non-Af 137, BUN/Creatinine Ratio 11.1, Glucose 120 H, Calcium 7.6 L, Total Bilirubin 8.80 H, Direct Bilirubin 7.62 H, AST 847 H, ALT 225 H, Alkaline Phosphatase 327 H, Total Protein 5.8 L, Albumin 1.5 L, Globulin 4.3 H, Albumin/Globulin Ratio 0.3 L 12/09/20 05:51: PT 17.3 H, INR 1.5 12/09/20 05:51: Ammonia 30.0 12/09/20 05:51: Vitamin B12 Pending Current Medications Albuterol Sulfate (Albuterol 2.5 Mg/3 Ml Vial.Neb.) 2.5 mg INHALATION Q2H PRN PRN PRN Reason: SOB/Wheezing Atorvastatin Calcium (Atorvastatin Calcium 40 Mg Tablet) 40 mg PO DAILY@2200 [facility] Last Admin: 12/08/20 21:24 Dose: 40 mg Documented by: Citalopram Hydrobromide (Citalopram 20 Mg Tablet) 20 mg PO DAILY [facility] Last Admin: 12/08/20 09:53 Dose: 20 mg Documented by: Dicyclomine HCl (Dicyclomine 10 Mg Capsule) 20 mg PO Q6H PRN PRN PRN Reason: abdominal discomfort Folic Acid (Folic Acid 1 Mg Tablet) 1 mg PO DAILY@0800 [facility] Last Admin: 12/08/20 09:51 Dose: 1 mg Documented by: Furosemide (Furosemide 40 Mg/4 Ml Vial) 40 mg IV BID@1000,1800 [facility] Last Admin: 12/08/20 18:06 Dose: 40 mg Documented by: Hydralazine HCl (Hydralazine 20 Mg/Ml Vial) 5 mg IV Q4H PRN PRN PRN Reason: BLOOD PRESSURE Piperacillin Sod/Tazobactam (Sod 3.375 gm/ Sodium Chloride) 50 mls @ 12.5 mls/hr IV Q8 [facility] Last Admin: 12/09/20 05:08 Dose: 12.5 mls/hr Documented by: Pantoprazole Sodium 40 mg/ (Sodium Chloride) 110 mls @ 330 mls/hr IV Q12 [facility] Last Infusion: 12/08/20 21:43 Dose: Infused Documented by: Lactulose (Lactulose 20 Gm/30 Ml Udc) 20 gm PO BID [facility] Last Admin: 12/08/20 21:23 Dose: 20 gm Documented by: Levetiracetam (Levetiracetam 500 Mg Tablet) 500 mg PO BID [facility] Last Admin: 12/08/20 21:23 Dose: 500 mg Documented by: Loperamide HCl (Loperamide 2 Mg Capsule) 2 mg PO Q4H PRN PRN PRN Reason: LOOSE STOOLS Lorazepam (Lorazepam 1 Mg Tablet) 1 mg PO Q4H [facility]; Taper Stop: 12/12/20 02:29 Last Admin: 12/09/20 05:32 Dose: 1 mg Documented by: Magnesium Chloride (Magnesium Chloride 64 Mg Delay Rel.Tablet) 128 mg PO DAILY [facility] Last Admin: 12/08/20 09:52 Dose: 128 mg Documented by: Magnesium Hydroxide (Magnesium Hydroxide 30 Ml Udc) 30 ml PO DAILY PRN PRN PRN Reason: Constipation Metoprolol Succinate (Metoprolol(Xl)Succ 50 Mg Tablet) 50 mg PO DAILY [facility] Last Admin: 12/08/20 09:54 Dose: 50 mg Documented by: Mirtazapine (Mirtazapine 15 Mg Tablet) 45 mg PO QHS [facility] Last Admin: 12/08/20 21:23 Dose: 45 mg Documented by: Multivitamins (Multivitamins,Therapeutic Tablet) 1 tablet PO DAILY@0800 [facility] Last Admin: 12/08/20 09:52 Dose: 1 tablet Documented by: Polyethylene Glycol (Polyethylene Glycol 3350 17 Gm Packet) 17 gm PO DAILY [facility] Last Admin: 12/08/20 09:54 Dose: 17 gm Documented by: Prednisolone Sodium Phosphate (Prednisolone Soln 15 Mg/5 Ml Udc) 40 mg PO DAILY@0800 [facility] Psyllium Hydrophilic Mucilloid (Psyllium 1 Packet) 1 packet PO DAILY [facility] Last Admin: 12/08/20 11:31 Dose: 1 packet Documented by: Quetiapine Fumarate (Quetiapine 100 Mg Tablet) 200 mg PO QHS [facility] Last Admin: 12/08/20 21:24 Dose: 200 mg Documented by: Senna/Docusate Sodium (Senna/Docusate Sodium 1 Tablet) 2 tablet PO BID PRN PRN PRN Reason: Constipation Sodium Chloride (0.9% Saline Lock 10 Ml Syringe) 10 - 40 ml IV UD PRN PRN Reason: SALINE FLUSH Last Admin: 12/08/20 04:30 Dose: 10 ml Documented by: Thiamine HCl (Thiamine Hydrochloride 100 Mg Tablet) 100 mg PO BIDCM [facility] Last Admin: 12/08/20 17:10 Dose: 100 mg Documented by: Capacity - Capacity Assessment Tool Can the patient make a choice & communicate that choice?: Yes Can the patient understand benefits, risks and alternatives?: No Can the patient make a logical, rational choice?: No Is the choice the patient makes consistent w/ their values?: Yes Is there an impending, emergent risk to the patient?: Yes Does the patient have an Advance Directive?: Yes Is there a Surrogate Available?: No i.e. HCPOA: No i.e. close relative (spouse, child, parent, sibling)?: No Medical Necessity - Tobacco Use Smoking Status: Current every day smoker Tobacco Use: Pipe Assessment/Plan All Active Problems (Last Reviewed 04/20/20 @ 17:[address] Татьяна Gamble, DO) Alcoholic hepatitis with ascites (Acute) Anemia, unspecified (Acute) Jaundice (Acute) Gross hematuria (Acute) Lactic acidosis (Acute) Urinary tract infection (Acute) Hypokalemia (Acute) Elevated CPK (Acute) Alcohol withdrawal (Acute) Severe sepsis (Acute) Alcoholic hepatitis (Acute) Hyponatremia (Acute) 60-year-old male with past medical history of heavy alcohol use who comes in with dark tarry stools and dark urine 1. Acute liver failure, likely secondary to acute alcoholic hepatitis, minimally improved Patient with heavy alcohol use. Shakeel blood work shows improvement in his total bilirubin, direct bilirubin, AST, ALT, ALP Patient's admitting MELD score is 20, alcohol discriminant function is 39.9 which points to poor prognosis CT of the abdomen and pelvis showed diffuse fatty infiltration of the liver Ultrasound of the liver does hepatomegaly and diffuse fatty infiltration of the liver, gallbladder wall thickening,/seen in the gallbladder lumen Patient's admitting bilirubin was 11.4, direct bilirubin is 9.29, AST is 1293, ALT is 262, ALP is 425, ammonia is 34, albumin is 1.6, INR is 1.5 Salicylate and acetaminophen levels is unremarkable; acute hepatitis panel is pending Started on lactulose, prednisolone, Lasix 2. Severe hypokalemia/hypomagnesemia, K is 2.5, magnesium is 1.8, replaced, recheck in a.m. 3. Severe anemia, Hb is 7.5 today, status post 1 unit packed RBC, unclear etiology, Likely secondary to probable acute on chronic GI bleed from probable alcoholic gastritis Repeat blood work in am 4. Probable Acute on chronic GI bleed, patient reports history of melena, FOBT has been negative, continued on IV PPI twice daily 5. Severe sepsis likely secondary to Acute UTI, Urine culture shows no growth, will de-escalate from IV Zosyn to IV ceftriaxone 6. Acute alcohol withdrawal, in a patient with chronic heavy alcohol use, admitted with alcohol level of 130 Will continue with Ativan withdrawal 7. Seizure disorder, continue on Keppra 8. Hypertension, uncontrolled likely secondary to alcohol withdrawal Continue on metoprolol, hydralazine as needed 9. Bipolar disorder/anxiety, continue on Celexa, Seroquel, Remeron 10. Bilateral leg edema likely related to acute liver failure, acute DVT ruled out from negative dopplers. 11. DVT PPx- SCDs 12. Debility related to the above, patient is currently a 2-person assist PT/OT to evaluate and treat I repeated evaluation of patient's medical decision-making capacity today. Patient cannot tell me why he was admitted. He stated that he was admitted because he was feeling dizzy and did not feel well. He cannot tell me the specific reason that required admission. When I rephrased and asked what he thinks of his current medical conditions, he stated that he feels is very good. He wants to go home and take care of his dogs. He wants to leave today. He does not express understanding of his current medical condition. He does not express appreciation of the gravity of his medical condition. He is able to make a decision -he wants to go home and take care of his dogs even though he is not able to walk or take care of himself in this hospital stay. He has been a 2 person assist. He is not able to reason out a sufficient rational explanation for his decision to go home. Patient currently LACKS the capacity to make medical decisions. He should not be the decision-maker with regards to the next steps in this hospital stay. He cannot leave AGAINST MEDICAL ADVICE. If he is able and attempts to leave the floor, he should be PINK SLIPPED. Social work will be updated. Inpatient E&M: 04084 Subs Hosp L3
[2020-12-09 07:57] LABS: Phosphorus 2.9 mg/dL (2.5-4.9)
[2020-12-09] MEDS: Multivitamins,Therapeutic Tablet 1 TABLET PO (09:42)
[2020-12-09] MEDS: Folic Acid 1 MG Tablet PO (09:42)
[2020-12-09] MEDS: prednisoLONE soln 15 MG/5 ML UDC 40 MG PO (09:42)
[2020-12-09] MEDS: Thiamine Hydrochloride 100 MG Tablet PO ×2 (09:42→18:23)
[2020-12-09] MEDS: 0.9% Saline Lock 10 ML Syringe IV (09:50)
[2020-12-09] MEDS: Potassium Chloride 10mEq/100mL 10 MEQ/100 ML IV.SOLN. 100 MEQ IV BOLUS ×4 (09:58→13:19)
[2020-12-09] MEDS: levETIRAcetam 500 MG Tablet PO ×2 (12:45→21:51)
[2020-12-09] MEDS: Citalopram 20 MG Tablet PO (12:46)
[2020-12-09] MEDS: Magnesium Chloride 64 MG Delay Rel.Tablet 128 MG PO (12:48)
[2020-12-09] MEDS: Lactulose 20 GM/30 ML UDC PO ×2 (12:48→21:50)
[2020-12-09] MEDS: Psyllium 1 PACKET PO (12:50)
[2020-12-09] MEDS: Polyethylene Glycol 3350 17 GM PACKET PO (12:50)
[2020-12-09] MEDS: Furosemide 40 MG/4 ML Vial IV ×2 (12:52→18:23)
[2020-12-09] MEDS: Metoprolol(XL)Succ 50 MG Tablet PO (13:01)
[2020-12-09] MEDS: QUEtiapine 100 MG Tablet 200 MG PO (21:51)
[2020-12-09] MEDS: Mirtazapine 15 MG Tablet 45 MG PO (21:51)
[2020-12-09] MEDS: Atorvastatin Calcium 40 MG Tablet PO (21:52)
[2020-12-10] MEDS: LORazepam 1 MG Tablet 0.5 MG PO ×4 (02:00→22:11)
[2020-12-10 02:06] VITALS: BP 134/83; PULSE 98; RESP 18; TEMP 37.1; O2SAT 92
[2020-12-10 06:32] LABS: Absolute Lymphocyte Count 2.59 X10^3/uL (0.83-4.51); Absolute Neutrophil Count 6.9 X10^3/uL (2.0-7.7); Basophil# 0.01 X10^3/uL; Basophil% 0.1 % (0-1); Eosinophil# 0.01 X10^3/uL; Eosinophils% 0.1 % (0-5); Hematocrit 32.6 % (40-54); Lymphocyte # 2.59 X10^3/ul (4.0); Lymphocyte % 25.1 % (19-41); Mean Corp Hgb Conc 30.7 g/dL (32-36); Mean Corpuscular Hgb 36.1 pg (27.0-32.0); Mean Corpuscular Volume 117.7 fL (80-94); Mean Platelet Vol. 9.9 fl (6.2-12.0); Monocyte# 0.71 X10^3/uL; Monocyte% 6.9 % (0-10); NRBC Flagged by Analyzer 0.5 % (0-5); Neutrophil % 66.8 % (47-70); POSITIVE MORPHOLOGY YES; Platelet Count 225 K/mm3 (150-450); RBC Distribution Width CV 26.2 % (11.6-14.6); Red Blood Count 2.77 M/mm3 (4.6-6.2); White Blood Count 10.3 K/mm3 (4.4-11.0)
[2020-12-10 06:33] LABS: Differential Indicated SCAN CRITERIA MET; RBC Distribution Width SD 109.2 fl (35.1-43.9)
[2020-12-10 06:55] LABS: Polychromasia 1+
[2020-12-10 06:56] LABS: Macrocytosis 1+; Microcytosis RARE; Stomatocyte 1+
[2020-12-10 07:11] LABS: AST(SGOT) 836 U/L (15-37); Alanine Aminotransfer ALT/SGPT 264 U/L (16-61); Albumin, Serum 1.7 g/dL (3.2-5.0); Alkaline Phosphatase 365 U/L (45-117); BUN 10 mg/dL (7-18); BUN/Creat Ratio 14.6 RATIO (10-20); Bilirubin, Direct 7.67 mg/dL (0.00-0.30); Calcium,Total 8.3 mg/dL (8.5-10.1); Chloride 98 mmol/L (98-107); Creatinine, Serum 0.68 mg/dL (0.70-1.30); EST Glomerular Filtration Rate 125 mL/min (>60); Est Glom Filt Rate - Afr Amer 151 mL/min (>60); Estimated Creatinine Clearance 119.96 ml/min; Globulin 4.8 g/dL (2.2-4.2); Glucose 75 mg/dL (74-106); Potassium 2.6 mmol/L (3.5-5.1); Protein, Total 6.5 g/dL (6.4-8.2); Sodium Level 139 mmol/L (136-145)
--- NOTE | 2020-12-10 07:32 | NURSING ---
PT RESTING QUIETLY IN BED, EYES CLOSED, RESP EASY. PT PICKING AT THE AIR & BED LINENS.
[2020-12-10 07:33] VITALS: BP 144/72; PULSE 93; RESP 20; TEMP 36.8; O2SAT 97
--- NOTE | 2020-12-10 08:02 | PCM.PN.HOSP ---
Patient Problems: Active and Suspected Problems (Last Reviewed 04/20/20 @ 17:[address] Татьяна Gamble, DO) Alcoholic hepatitis with ascites (Acute) Anemia, unspecified (Acute) Jaundice (Acute) Gross hematuria (Acute) Lactic acidosis (Acute) Urinary tract infection (Acute) Hypokalemia (Acute) Alcohol withdrawal (Acute) Severe sepsis (Acute) due to PNA and UTI Alcoholic hepatitis (Acute) Seizure (Suspected) Reason for Visit: Follow-up for acute hepatitis secondary to chronic alcohol use. Objective: Patient still drowsy and lethargic. Although he understands that he drinks heavily and he wants to quit alcohol. He also sleeps mainly during daytime. He is oriented to time, place but not person. He tells me the correct month and year and the president. Patient is deep yellow. Physical exam General: Drowsy, lethargic, oriented x2. HEENT: Atraumatic, PERRLA, EOMI, Normocephalic Oral: No Gingival or Mucosal Lesions/ Ulcerations Neck: Supple, No JVD, Negative Carotid Bruits Lungs: Air entry diminished in bilateral lung bases. No crepitation/rhonchi Cardiovascular: Regular rate, Regular Rhythm, Normal S1, Normal S2, No murmurs Abdomen: Bowel Sounds Present, Soft, Non Tender, Non-Distended. Mild hepatomegaly. : No renal angle tenderness. No suprapubic tenderness. Extremities: No edema, Capillary Refill Less than 3 Seconds Skin: No rashes, No breakdown. Loss of subcutaneous fat and extremity of muscles. Musculoskeletal: No Tenderness to Palpation of Joints or Extremities Neurological: Cranial nerves II-XII grossly intact, Deep Tendon Reflexes 2+/4 and Symmetrical, Neuro grossly intact Psych/Mental Status: Normal Affect, Appropriate. Vitals/I&O's: Vital Signs Temp Pulse Resp BP Pulse Ox 98.3 F 93 20 H 144/72 H 97 12/10/20 07:33 12/10/20 07:33 12/10/20 07:33 12/10/20 07:33 12/10/20 07:33 Oxygen Flow Rate (L/min) 2 Oxygen Delivery Method Room Air Weight: 184 lb 11.958 oz Body Mass Index (BMI) 27.8 Finger Stick Blood Glucose 125 Intake and Output for Last 24 Hours 12/08/20 12/09/20 12/10/20 23:59 23:59 23:59 Intake Total 1645.42 / 1645.42 1664 / 1664 Output Total 3105 / 3105 Balance -1459.58 / -1459.58 1664 / 1664 Microbiology Past 72 Hours 12/07/20 11:17 Blood Culture (Wb) - Right Hand Blood Culture - Preliminary No growth in 48 hours. 12/07/20 10:40 Urine Catheter - Farris Urine Culture - Final Culture exhibits no growth. 12/08/20 08:49 Stool Stool Occult Blood (JEFFY) - Final Laboratory Results 12/07/20 11:16: Crossmatch See Detail 12/09/20 13:52: Ammonia 24.0 12/10/20 06:15: WBC 10.3, RBC 2.77 L, Hgb 10.0 L, Hct 32.6 L, MCV 117.7 H, MCH 36.1 H, MCHC 30.7 L, RDW Std Deviation 109.2 H, RDW Coeff of William 26.2 H, Plt Count 225, MPV 9.9, Immature Gran % (Auto) 1.000 H, Neut % (Auto) 66.8, Lymph % (Auto) 25.1, Gaston % (Auto) 6.9, Eos % (Auto) 0.1, Baso % (Auto) 0.1, Absolute Neuts (auto) 6.9, Absolute Lymphs (auto) 2.59, Nucleated RBC % 0.5, Polychromasia 1+, Microcytosis RARE, Macrocytosis 1+, Stomatocytes 1+ 12/10/20 06:15: Sodium 139, Potassium 2.6 L*, Chloride 98, Carbon Dioxide 36.0 H, BUN 10, Creatinine 0.68 L, Estim Creat Clear Calc 119.96, Est GFR (MDRD) Af Amer 151, Est GFR (MDRD) Non-Af 125, BUN/Creatinine Ratio 14.6, Glucose 75, Calcium 8.3 L, Phosphorus 3.0, Total Bilirubin 9.20 H, Direct Bilirubin 7.67 H, AST 836 H, ALT 264 H, Alkaline Phosphatase 365 H, Total Protein 6.5, Albumin 1.7 L, Globulin 4.8 H 12/10/20 06:15: Ammonia 30.0 Current Medications Albuterol Sulfate (Albuterol 2.5 Mg/3 Ml Vial.Neb.) 2.5 mg INHALATION Q2H PRN PRN PRN Reason: SOB/Wheezing Atorvastatin Calcium (Atorvastatin Calcium 40 Mg Tablet) 40 mg PO DAILY@2200 [facility] Last Admin: 12/09/20 21:52 Dose: 40 mg Documented by: Citalopram Hydrobromide (Citalopram 20 Mg Tablet) 20 mg PO DAILY [facility] Last Admin: 12/09/20 12:46 Dose: 20 mg Documented by: Dicyclomine HCl (Dicyclomine 10 Mg Capsule) 20 mg PO Q6H PRN PRN PRN Reason: abdominal discomfort Folic Acid (Folic Acid 1 Mg Tablet) 1 mg PO DAILY@0800 [facility] Last Admin: 12/09/20 09:42 Dose: 1 mg Documented by: Furosemide (Furosemide 40 Mg/4 Ml Vial) 40 mg IV BID@1000,1800 [facility] Last Admin: 12/09/20 18:23 Dose: 40 mg Documented by: Hydralazine HCl (Hydralazine 20 Mg/Ml Vial) 5 mg IV Q4H PRN PRN PRN Reason: BLOOD PRESSURE Pantoprazole Sodium 40 mg/ (Sodium Chloride) 110 mls @ 330 mls/hr IV Q12 [facility] Last Infusion: 12/09/20 22:09 Dose: Infused Documented by: Ceftriaxone Sodium (Rocephin) 1 gm in 50 mls @ 100 mls/hr IV Q24 [facility] Lactulose (Lactulose 20 Gm/30 Ml Udc) 20 gm PO BID [facility] Last Admin: 12/09/20 21:50 Dose: 20 gm Documented by: Levetiracetam (Levetiracetam 500 Mg Tablet) 500 mg PO BID [facility] Last Admin: 12/09/20 21:51 Dose: 500 mg Documented by: Loperamide HCl (Loperamide 2 Mg Capsule) 2 mg PO Q4H PRN PRN PRN Reason: LOOSE STOOLS Lorazepam (Lorazepam 1 Mg Tablet) 1 mg PO Q6H [facility]; Taper Stop: 12/12/20 02:29 Last Admin: 12/10/20 02:00 Dose: 1 mg Documented by: Magnesium Chloride (Magnesium Chloride 64 Mg Delay Rel.Tablet) 128 mg PO DAILY [facility] Last Admin: 12/09/20 12:48 Dose: 128 mg Documented by: Magnesium Hydroxide (Magnesium Hydroxide 30 Ml Udc) 30 ml PO DAILY PRN PRN PRN Reason: Constipation Metoprolol Succinate (Metoprolol(Xl)Succ 50 Mg Tablet) 50 mg PO DAILY [facility] Last Admin: 12/09/20 13:01 Dose: 50 mg Documented by: Mirtazapine (Mirtazapine 15 Mg Tablet) 45 mg PO QHS [facility] Last Admin: 12/09/20 21:51 Dose: 45 mg Documented by: Multivitamins (Multivitamins,Therapeutic Tablet) 1 tablet PO DAILY@0800 [facility] Last Admin: 12/09/20 09:42 Dose: 1 tablet Documented by: Nutritional Formula (Lactose Free) (Ensure Enlive 120 Ml Liquid) 120 ml PO 4X/DAY [facility] Last Admin: 12/09/20 21:50 Dose: Not Given Documented by: Polyethylene Glycol (Polyethylene Glycol 3350 17 Gm Packet) 17 gm PO DAILY [facility] Last Admin: 12/09/20 12:50 Dose: 17 gm Documented by: Prednisolone Sodium Phosphate (Prednisolone Soln 15 Mg/5 Ml Udc) 40 mg PO DAILY@0800 [facility] Last Admin: 12/09/20 09:42 Dose: 40 mg Documented by: Psyllium Hydrophilic Mucilloid (Psyllium 1 Packet) 1 packet PO DAILY [facility] Last Admin: 12/09/20 12:50 Dose: 1 packet Documented by: Quetiapine Fumarate (Quetiapine 100 Mg Tablet) 200 mg PO QHS [facility] Last Admin: 12/09/20 21:51 Dose: 200 mg Documented by: Senna/Docusate Sodium (Senna/Docusate Sodium 1 Tablet) 2 tablet PO BID PRN PRN PRN Reason: Constipation Sodium Chloride (0.9% Saline Lock 10 Ml Syringe) 10 - 40 ml IV UD PRN PRN Reason: SALINE FLUSH Last Admin: 12/09/20 09:50 Dose: 10 ml Documented by: Thiamine HCl ([facility] 100 Mg [facility]t) [facility] Last Admin: 12/09/20 18:23 Dose: 100 mg Documented by: STROKE Vital Signs/Narrative: Vital Signs Temp Pulse Resp BP Pulse Ox 12/10/20 07:33 98.3 F 93 20 H 144/72 H 97 Medical Necessity - Tobacco Use Smoking Status: Current every day smoker Tobacco Use: Pipe Assessment/Plan All Active Problems (Last Reviewed 04/20/20 @ 17:[address] Татьяна Gamble, DO) Alcoholic hepatitis with ascites (Acute) Anemia, unspecified (Acute) Jaundice (Acute) Gross hematuria (Acute) Lactic acidosis (Acute) Urinary tract infection (Acute) Hypokalemia (Acute) Elevated CPK (Acute) Alcohol withdrawal (Acute) Severe sepsis (Acute) Alcoholic hepatitis (Acute) Hyponatremia (Acute) 60-year-old male with past medical history of chronic alcohol use and disorder was admitted with dark tarry stool, dark urine and elevated transaminases. Heavy alcohol use who comes in with dark tarry stools and dark urine 1. Acute alcoholic hepatitis with chronic alcohol use and dependence: Patient had elevated transaminases, AST: 93, ALT 262, total bilirubin 1.4, direct 9.29 at time of admission along with lactic acidosis 2.4. Patient discretion factor was high, 40, meld sodium score 21 which has 7 to 10% of estimated 90-day mortality. Patient was started on prednisone 40 mg daily after stool for occult blood negative. On PPI. CT of the abdomen showed diffuse fatty infiltration of liver. Right upper quadrant sonogram shows hepatomegaly, GB wall thickening and sludge in GB lumen. Acute viral hepatitis panel is pending. Continue lactulose and prednisone as ordered. Started on spironolactone 25 mg daily as patient has hypokalemia. Lasix changed to 40 mg IV daily. Right upper quadrant and CT abdomen does not show ascites. 2. Severe hypokalemia/hypomagnesemia, K is 2.5, magnesium is 1.8: K2.6. Magnesium 1.7. Potassium replaced. 3. Severe anemia, Hb is 7.5 today, status post 1 unit packed RBC, unclear etiology, hemoglobin increased to 10/32.6 probably secondary to hemoconcentration. BUN went up from 4-10. Creatinine same but patient has low body mass/muscle volume. Lasix decreased to 40 mg daily. 4. Probable Acute on chronic GI bleed, patient reports history of melena, FOBT has been negative, PPI changed to oral. Discussed with surgeon Dr. Delgado and she agreed for outpatient EGD. 5. Severe sepsis likely secondary to Acute UTI, Urine culture shows no growth, IV ceftriaxone 6. Acute alcohol withdrawal, in a patient with chronic heavy alcohol use, admitted with alcohol level of 130 continue with Ativan withdrawal 7. Seizure disorder, continue on Keppra 8. Hypertension, uncontrolled likely secondary to alcohol withdrawal Continue on metoprolol, hydralazine as needed 9. Bipolar disorder/anxiety, continue on Celexa, Seroquel, Remeron 10. Bilateral leg edema likely related to acute liver failure, acute DVT ruled out from negative dopplers. 11. DVT PPx- SCDs 12. Debility related to the above, patient is currently a 2-person assist PT/OT to evaluate and treat Inpatient E&M: 23441 Subs Hosp L2
[2020-12-10 08:06] LABS: HEPATITIS B SURFACE AG Negative (Negative); Hepatitis A IgM Antibody Negative (Negative); Hepatitis B Core AB IgM Negative (Negative)
[2020-12-10 08:17] LABS: Magnesium 1.7 mg/dL (1.6-2.6)
[2020-12-10 08:27] VITALS: O2SAT 95
[2020-12-10] MEDS: 0.9% Saline Lock 10 ML Syringe IV ×2 (08:50→17:03)
[2020-12-10] MEDS: Furosemide 40 MG/4 ML Vial IV ×2 (08:50→17:03)
[2020-12-10 08:55] LABS: Vitamin B12 1427 pg/mL (211-911)
[2020-12-10] MEDS: prednisoLONE soln 15 MG/5 ML UDC 40 MG PO (09:04)
[2020-12-10] MEDS: Multivitamins,Therapeutic Tablet 1 TABLET PO (09:04)
[2020-12-10] MEDS: Thiamine Hydrochloride 100 MG Tablet PO ×2 (09:04→17:03)
[2020-12-10] MEDS: levETIRAcetam 500 MG Tablet PO ×2 (09:05→22:12)
[2020-12-10] MEDS: Magnesium Chloride 64 MG Delay Rel.Tablet 128 MG PO (09:05)
[2020-12-10] MEDS: Polyethylene Glycol 3350 17 GM PACKET PO (09:05)
[2020-12-10] MEDS: Citalopram 20 MG Tablet PO (09:05)
[2020-12-10 09:06] VITALS: BP 144/72; PULSE 93
[2020-12-10] MEDS: Metoprolol(XL)Succ 50 MG Tablet PO (09:06)
[2020-12-10] MEDS: Folic Acid 1 MG Tablet PO (09:09)
[2020-12-10] MEDS: Ceftriaxone 1 GM/50 ML BAG IV (09:27)
[2020-12-10] MEDS: Potassium Chloride 10mEq/100mL 10 MEQ/100 ML IV.SOLN. 100 MEQ IV BOLUS ×4 (09:54→13:39)
--- NOTE | 2020-12-10 13:59 | CASEMGMT ---
Social Work Note SW spoke with physician. Physician feels pt is able to make own decisions and pt does NOT want Palliative or Hospice services at this time. PT told Physician that he wants to quit ETOH. SW attempted to meet with pt. Pt soundly sleeping, didn't wake up when this worker entered the room. SW tried to ask questions regarding discharge plan, pt only able to state he is going home at discharge. SW did provide pt with counseling/substance abuse resources. SW received call from Mi at [facility]. SW updated Mi that as of today now pt is refusing Palliative and Hospice. SW received message from pt's CM Diana Luong stating she was not able to find any family for pt. Diana cell phone number ([phone]). SW to attempt to speak with pt again once pt is more awake. SW to continue to follow. Dee Lundberg THERAPIST'S ASSISTANT, SHRINKING MACHINE OPERATOR
[2020-12-10 14:22] VITALS: BP 152/73; PULSE 89; RESP 18; TEMP 37.1; O2SAT 92
[2020-12-10] MEDS: Spironolactone 25 MG Tablet PO (17:56)
[2020-12-10 20:30] VITALS: BP 119/70; PULSE 92; RESP 18; TEMP 36.8; O2SAT 93
[2020-12-10 20:33] LABS: Hep C Antibodies <0.1 s/co ratio (0.0-0.9)
[2020-12-10] MEDS: Lactulose 20 GM/30 ML UDC PO (22:11)
[2020-12-10] MEDS: Atorvastatin Calcium 40 MG Tablet PO (22:12)
[2020-12-10] MEDS: QUEtiapine 100 MG Tablet 200 MG PO (22:14)
[2020-12-10] MEDS: Mirtazapine 15 MG Tablet 45 MG PO (22:14)
[2020-12-10] MEDS: Pantoprazole Sodium 40 MG Tablet PO (22:18)
[2020-12-11] MEDS: LORazepam 1 MG Tablet 0.5 MG PO ×4 (02:26→21:35)
[2020-12-11 02:30] VITALS: BP 124/72; PULSE 94; RESP 16; TEMP 37.4; O2SAT 97
[2020-12-11 06:09] LABS: Absolute Lymphocyte Count 2.48 X10^3/uL (0.83-4.51); Absolute Neutrophil Count 6.3 X10^3/uL (2.0-7.7); Basophil# 0.01 X10^3/uL; Basophil% 0.1 % (0-1); Eosinophil# 0.01 X10^3/uL; Eosinophils% 0.1 % (0-5); Hematocrit 31.2 % (40-54); Hemoglobin 9.5 g/dL (13.0-16.5); Lymphocyte # 2.48 X10^3/ul (4.0); Lymphocyte % 25.9 % (19-41); Mean Corp Hgb Conc 30.4 g/dL (32-36); Mean Corpuscular Hgb 36.3 pg (27.0-32.0); Mean Corpuscular Volume 119.1 fL (80-94); Mean Platelet Vol. 9.8 fl (6.2-12.0); Monocyte# 0.68 X10^3/uL; Monocyte% 7.1 % (0-10); NRBC Flagged by Analyzer 0.4 % (0-5); Neutrophil # 6.31 X10^3/uL (2.7-7.7); POSITIVE MORPHOLOGY YES; Platelet Count 247 K/mm3 (150-450); RBC Distribution Width CV 24.9 % (11.6-14.6); Red Blood Count 2.62 M/mm3 (4.6-6.2); White Blood Count 9.6 K/mm3 (4.4-11.0)
[2020-12-11 06:14] LABS: Differential Indicated SCAN CRITERIA MET; RBC Distribution Width SD 103.6 fl (35.1-43.9)
[2020-12-11 06:35] LABS: Microcytosis 1+; Polychromasia RARE; Stomatocyte 1+
[2020-12-11 06:46] LABS: AST(SGOT) 708 U/L (15-37); Alanine Aminotransfer ALT/SGPT 250 U/L (16-61); Albumin, Serum 1.8 g/dL (3.2-5.0); Alkaline Phosphatase 399 U/L (45-117); BUN 16 mg/dL (7-18); BUN/Creat Ratio 20.2 RATIO (10-20); Bilirubin, Direct 7.13 mg/dL (0.00-0.30); Calcium,Total 8.6 mg/dL (8.5-10.1); Chloride 95 mmol/L (98-107); Creatinine, Serum 0.79 mg/dL (0.70-1.30); EST Glomerular Filtration Rate 105 mL/min (>60); Est Glom Filt Rate - Afr Amer 127 mL/min (>60); Estimated Creatinine Clearance 103.26 ml/min; Glucose 137 mg/dL (74-106); Phosphorus 4.4 mg/dL (2.5-4.9); Potassium 2.6 mmol/L (3.5-5.1); Protein, Total 6.8 g/dL (6.4-8.2); Sodium Level 138 mmol/L (136-145)
[2020-12-11 07:10] VITALS: O2SAT 98
[2020-12-11 07:41] LABS: Magnesium 1.9 mg/dL (1.6-2.6); Phosphorus 4.4 mg/dL (2.5-4.9)
[2020-12-11 08:01] LABS: International Normalized Ratio 1.3; Prothrombin Time (Protime)PT. 15.7 SECONDS (11.7-14.9)
[2020-12-11] MEDS: Potassium Chloride 10mEq/100mL 10 MEQ/100 ML IV.SOLN. 100 MEQ IV BOLUS ×4 (08:19→12:21)
[2020-12-11] MEDS: Potassium Chloride Oral Tablet 20 MEQ 40 MEQ PO (08:23)
[2020-12-11] MEDS: Folic Acid 1 MG Tablet PO (08:24)
[2020-12-11] MEDS: prednisoLONE soln 15 MG/5 ML UDC 40 MG PO (08:25)
[2020-12-11 08:26] VITALS: PULSE 83
[2020-12-11] MEDS: Metoprolol(XL)Succ 50 MG Tablet PO (08:26)
[2020-12-11] MEDS: Multivitamins,Therapeutic Tablet 1 TABLET PO (08:26)
[2020-12-11] MEDS: levETIRAcetam 500 MG Tablet PO ×2 (08:26→21:46)
[2020-12-11] MEDS: Thiamine Hydrochloride 100 MG Tablet PO ×2 (08:27→17:03)
[2020-12-11] MEDS: Citalopram 20 MG Tablet PO (08:27)
[2020-12-11] MEDS: Furosemide 40 MG/4 ML Vial IV (08:27)
[2020-12-11] MEDS: Lactulose 20 GM/30 ML UDC PO ×2 (08:29→21:46)
[2020-12-11] MEDS: Spironolactone 25 MG Tablet PO ×2 (08:31→21:46)
[2020-12-11] MEDS: Magnesium Chloride 64 MG Delay Rel.Tablet 128 MG PO (08:31)
[2020-12-11] MEDS: Pantoprazole Sodium 40 MG Tablet PO ×2 (08:32→21:46)
[2020-12-11 08:47] VITALS: BP 114/71; PULSE 83; RESP 16; TEMP 36.6; O2SAT 98
--- NOTE | 2020-12-11 10:20 | CASEMGMT ---
Social Work Note SW met with pt to continue discussion of discharge planning. SW introduced self and role at [facility]. Pt is alert and orientated x3. WILD informed pt that physician put in consult for 180 to see pt. SW educated pt on 180. Pt agreeable to speaking with 180. Pt states he is going home today. WILD informed pt that pt will need to work with PT/OT today to determine safe discharge plans. Pt again states he is going home. WILD asked pt if he would be agreeable to [facility] for PT/OT. Pt states he was already doing therapy in the home, states he has a brochure with exercises on it that he was doing. Pt states he would be agreeable to [facility]. WILD updated RN SARAH. WILD updated by Serena with [facility] that she met with pt and provided resources. [facility] consult complete. Dee Lundberg ENVIRONMENT ARTIST, CAE ENGINEER
[2020-12-11] MEDS: Ceftriaxone 1 GM/50 ML BAG IV (10:45)
--- NOTE | 2020-12-11 13:34 | CASEMGMT ---
RN CM notified that patient will need PCP at discharge. RN CM in to discuss in network PCP's with patient. Pt first choice was Dr. Amna Jay and second choice Dr. Kike Nunez. Pt voiced interest in [facility] at [facility]. Patient was provided a list of [facility] providers including quality and resource use data and consistent with the patient?s preferred geographic region, medical needs, and insurance network. The patient?s preferred provider for HHC is [facility]. Will monitor progress with therapy to determine discharge disposition. RN CM to call and schedule appt to establish with PCP. CM will continue to follow this patient and plan for a safe discharge.
--- NOTE | 2020-12-11 13:58 | CASEMGMT ---
CECE SMITH in to discuss discharge planning with patient. [facility] and [facility] to [facility] with care there. CECE SMITH discuss discharge disposition with patient. Patient wishes to discharge home with [facility]. CECE SMITH reviewed how patient is doing with therapy and that he is requiring 2 person assist and may not be able to safely discharge home and may need to go to SNF for additional therapy. Patient voiced understanding.
[2020-12-11 13:59] VITALS: BP 135/86; PULSE 80; RESP 16; TEMP 36.5; O2SAT 96
--- NOTE | 2020-12-11 14:15 | CASEMGMT ---
CECE SMITH called to and spoke with [facility]. Patient was last seen on 10/18/2020. FU appt scheduled for 12/19/2020 at 11am. CECE SMITH updated patient.
--- NOTE | 2020-12-11 15:43 | CASEMGMT ---
Addendum entered by Dee Lundberg 12/11/20 17:11: SW received call from Jade at [facility] stating [facility] is not in network. [place] is but [place] no beds available. Per previous conversations with pt, pt's second choice is [facility]. SW placed a call to admissions and left message regarding referral. SW faxed referral to [facility]. Original Note: Social Work Note PT/OT worked with pt, pt still assist of two. SNF is being recommended. SW in to speak with pt. SW updated pt that it took two assist for PT/OT, informed pt there are safety concerns with pt returning home at this time. Pt confirms that he lives alone, could call his neighbor for help. SW informed pt that there are concerns with pt being able to take care of self (go to the bathroom, go to kitchen) etc as right now pt is assist of two. SW asked pt if he would be agreeable to SNF for short term SNF placement. Pt states that he needs to go home to take care of his dogs. SW asked pt if anyone could take care of his dogs right now so pt is able to get the care that he needs. Pt states he could ask his neighbor, but his phone is and pt unable to call neighbor. SW reviewed notes, pt's SARAH Luong was working on finding someone to watch pt's dogs while pt is at [facility]. SW placed a call to Diana and informed pt that SNF is being recommended, asked if she found anyone to watch pt's dogs if pt goes to SNF. Diana states pt's friend (Rowdy/Ty) has been watching pt's dogs and will continue to watch pt's dogs if pt goes to SNF. Diana states if pt's dogs need additional food, etc, then pt call call Diana and she will get dog food for pt's dogs. SW informed Diana that SNF is being recommended, pt has refused Hospice at this time. SW back in to speak with pt. SW informed pt that per Diana pt's friend Rowdy/Ty is watching pt's dogs and he will continue to do so if pt goes to SNF. Patient was provided a list of SNF providers including quality and resource use data and consistent with the patient?s preferred geographic region, medical needs, and insurance network. Pt states first choice is [facility] and second choice is [facility]. SW informed pt that this worker will make referrals, will keep pt updated. WILD also placed a call to Silvestre at [facility] and updated her plan is SNF at this time. Silvestre just asked to remain updated. WILD placed a call to Jade at [facility] and provided referral. WILD faxed referral. Plan: SNF pending acceptance and pre-cert Dee Lundberg TRAFFIC ANALYSIS TECHNICIAN, TRANSMISSIONS SYSTEMS OPERATOR
--- NOTE | 2020-12-11 16:32 | PCM.PN.HOSP ---
Patient Problems: Active and Suspected Problems (Last Reviewed 04/20/20 @ 17:[address] Татьяна Gamble, DO) Alcoholic hepatitis with ascites (Acute) Anemia, unspecified (Acute) Jaundice (Acute) Gross hematuria (Acute) Lactic acidosis (Acute) Urinary tract infection (Acute) Hypokalemia (Acute) Alcohol withdrawal (Acute) Severe sepsis (Acute) due to PNA and UTI Alcoholic hepatitis (Acute) Seizure (Suspected) Reason for Visit: Follow-up for acute alcoholic hepatitis with chronic alcoholic liver disease Objective: No fever or chills. Heart rate and blood pressure is controlled. Patient is more awake and alert and oriented x3. He has been informed for quitting alcohol. He does not have relative, next of kin. He has 1 friend and dogs. He wants to go back home. integration project managerpartner alliance manager worker involved. Patient refused to see [facility] talent solutions manager for alcohol rehab program 180 Patient has hypokalemia. Date of last bowel movement documented 12/10. Physical exam Physical exam General: Alert, awake, oriented x3 appearing x3. Intermittent drowsiness. Deep yellow color for body and icterus HEENT: Atraumatic, PERRLA, EOMI, Normocephalic Oral: No Gingival or Mucosal Lesions/ Ulcerations Neck: Supple, No JVD, Negative Carotid Bruits Lungs: Air entry diminished in bilateral lung bases. No crepitation/rhonchi Cardiovascular: Regular rate, Regular Rhythm, Normal S1, Normal S2, No murmurs Abdomen: Bowel Sounds Present, Soft, Non Tender, Non-Distended. Mild hepatomegaly. : No renal angle tenderness. No suprapubic tenderness. Extremities: No edema, Capillary Refill Less than 3 Seconds. Skin: No rashes, No breakdown. Loss of subcutaneous fat and mild atrophy of extremity of muscles. Musculoskeletal: No Tenderness to Palpation of Joints or Extremities Neurological: Cranial nerves II-XII grossly intact, Deep Tendon Reflexes 2+/4 and Symmetrical, Neuro grossly intact Psych/Mental Status: Normal Affect, Appropriate. Vitals/I&O's: Vital Signs Temp Pulse Resp BP Pulse Ox 97.7 F L 80 16 135/86 H 96 12/11/20 13:59 12/11/20 13:59 12/11/20 13:59 12/11/20 13:59 12/11/20 13:59 Oxygen Flow Rate (L/min) 3 Oxygen Delivery Method Nasal Cannula Weight: 179 lb 10.828 oz Body Mass Index (BMI) 27.8 Finger Stick Blood Glucose 125 Intake and Output for Last 24 Hours 12/09/20 12/10/20 12/11/20 23:59 23:59 23:59 Intake Total 1664 / 1664 766.67 / 766.67 1150 / 1150 Output Total 575 / 575 Balance 1664 / 1664 191.67 / 191.67 1150 / 1150 Microbiology Past 72 Hours 12/07/20 11:17 Blood Culture (Wb) - Right Hand Blood Culture - Preliminary No growth in 48 hours. 12/07/20 10:40 Urine Catheter - Farris Urine Culture - Final Culture exhibits no growth. Laboratory Results 12/07/20 18:30: Hepatitis A IgM Ab Negative, Hep Bs Antigen Negative, Hep B Core IgM Ab Negative, Hepatitis C Ab (EIA) <0.1 12/11/20 06:00: WBC 9.6, RBC 2.62 L, Hgb 9.5 L, Hct 31.2 L, MCV 119.1 H, MCH 36.3 H, MCHC 30.4 L, RDW Std Deviation 103.6 H, RDW Coeff of William 24.9 H, Plt Count 247, MPV 9.8, Immature Gran % (Auto) 0.800, Neut % (Auto) 66.0, Lymph % (Auto) 25.9, [place]leigh % (Auto) 7.1, Eos % (Auto) 0.1, Baso % (Auto) 0.1, Absolute Neuts (auto) 6.3, Absolute Lymphs (auto) 2.48, Nucleated RBC % 0.4, Polychromasia RARE, Microcytosis 1+, Stomatocytes 1+ 12/11/20 06:00: Sodium 138, Potassium 2.6 L*, Chloride 95 L, Carbon Dioxide 37.0 H, BUN 16, Creatinine 0.79, Estim Creat Clear Calc 103.26, Est GFR (MDRD) Af Amer 127, Est GFR (MDRD) Non-Af 105, BUN/Creatinine Ratio 20.2 H, Glucose 137 H, Calcium 8.6, Phosphorus 4.4, Total Bilirubin 8.30 H, Direct Bilirubin 7.13 H, AST 708 H, ALT 250 H, Alkaline Phosphatase 399 H, Total Protein 6.8, Albumin 1.8 L, Globulin 5.0 H 12/11/20 06:00: Ammonia 44.0 H 12/11/20 06:00: PT 15.7 H, INR 1.3 12/11/20 06:00: Phosphorus 4.4, Magnesium 1.9 Current Medications Albuterol Sulfate (Albuterol 2.5 Mg/3 Ml Vial.Neb.) 2.5 mg INHALATION Q2H PRN PRN PRN Reason: SOB/Wheezing Atorvastatin Calcium (Atorvastatin Calcium 40 Mg Tablet) 40 mg PO DAILY@2200 [facility] Last Admin: 12/10/20 22:12 Dose: 40 mg Documented by: Citalopram Hydrobromide (Citalopram 20 Mg Tablet) 20 mg PO DAILY [facility] Last Admin: 12/11/20 08:27 Dose: 20 mg Documented by: Dicyclomine HCl (Dicyclomine 10 Mg Capsule) 20 mg PO Q6H PRN PRN PRN Reason: abdominal discomfort Folic Acid (Folic Acid 1 Mg Tablet) 1 mg PO DAILY@0800 [facility] Last Admin: 12/11/20 08:24 Dose: 1 mg Documented by: Furosemide (Furosemide 40 Mg/4 Ml Vial) 40 mg IV DAILY [facility] Last Admin: 12/11/20 08:27 Dose: 40 mg Documented by: Hydralazine HCl (Hydralazine 20 Mg/Ml Vial) 5 mg IV Q4H PRN PRN PRN Reason: BLOOD PRESSURE Ceftriaxone Sodium (Rocephin) 1 gm in 50 mls @ 100 mls/hr IV Q24 [facility] Last Infusion: 12/11/20 11:47 Dose: Infused Documented by: Lactulose (Lactulose 20 Gm/30 Ml Udc) 20 gm PO BID [facility] Last Admin: 12/11/20 08:29 Dose: 20 gm Documented by: Levetiracetam (Levetiracetam 500 Mg Tablet) 500 mg PO BID [facility] Last Admin: 12/11/20 08:26 Dose: 500 mg Documented by: Loperamide HCl (Loperamide 2 Mg Capsule) 2 mg PO Q4H PRN PRN PRN Reason: LOOSE STOOLS Lorazepam (Lorazepam 1 Mg Tablet) 0.5 mg PO Q6H [facility]; Taper Stop: 12/12/20 02:29 Last Admin: 12/11/20 13:22 Dose: 0.5 mg Documented by: Magnesium Chloride (Magnesium Chloride 64 Mg Delay Rel.Tablet) 128 mg PO DAILY [facility] Last Admin: 12/11/20 08:31 Dose: 128 mg Documented by: Magnesium Hydroxide (Magnesium Hydroxide 30 Ml Udc) 30 ml PO DAILY PRN PRN PRN Reason: Constipation Metoprolol Succinate (Metoprolol(Xl)Succ 50 Mg Tablet) 50 mg PO DAILY [facility] Last Admin: 12/11/20 08:26 Dose: 50 mg Documented by: Mirtazapine (Mirtazapine 15 Mg Tablet) 45 mg PO QHS [facility] Last Admin: 12/10/20 22:14 Dose: 45 mg Documented by: Multivitamins (Multivitamins,Therapeutic Tablet) 1 tablet PO DAILY@0800 [facility] Last Admin: 12/11/20 08:26 Dose: 1 tablet Documented by: Pantoprazole Sodium (Pantoprazole Sodium 40 Mg Tablet) 40 mg PO BID [facility] Last Admin: 12/11/20 08:32 Dose: 40 mg Documented by: Prednisolone Sodium Phosphate (Prednisolone Soln 15 Mg/5 Ml Udc) 40 mg PO DAILY@0800 [facility] Last Admin: 12/11/20 08:25 Dose: 40 mg Documented by: Quetiapine Fumarate (Quetiapine 100 Mg Tablet) 200 mg PO QHS [facility] Last Admin: 12/10/20 22:14 Dose: 200 mg Documented by: Senna/Docusate Sodium (Senna/Docusate Sodium 1 Tablet) 2 tablet PO BID PRN PRN PRN Reason: Constipation Sodium Chloride (0.9% Saline Lock 10 Ml Syringe) 10 - 40 ml IV UD PRN PRN Reason: SALINE FLUSH Last Admin: 12/10/20 17:03 Dose: 10 ml Documented by: Spironolactone (Spironolactone 25 Mg Tablet) 25 mg PO BID [facility] Last Admin: 12/11/20 08:31 Dose: 25 mg Documented by: Thiamine HCl (Thiamine Hydrochloride 100 Mg Tablet) [facility] Last Admin: 12/11/20 08:27 Dose: 100 mg Documented by: STROKE Vital Signs/Narrative: Vital Signs Temp Pulse Resp BP Pulse Ox 12/11/20 13:59 97.7 F L 80 16 135/86 H 96 Medical Necessity - Tobacco Use Smoking Status: Current every day smoker Tobacco Use: Pipe Assessment/Plan All Active Problems (Last Reviewed 04/20/20 @ 17:[address] Татьяна Gamble, DO) Alcoholic hepatitis with ascites (Acute) Anemia, unspecified (Acute) Jaundice (Acute) Gross hematuria (Acute) Lactic acidosis (Acute) Urinary tract infection (Acute) Hypokalemia (Acute) Elevated CPK (Acute) Alcohol withdrawal (Acute) Severe sepsis (Acute) Alcoholic hepatitis (Acute) Hyponatremia (Acute) 60-year-old male with past medical history of chronic alcohol use and disorder was admitted with dark tarry stool, dark urine and elevated transaminases. Heavy alcohol use who comes in with dark tarry stools and dark urine 1. Acute alcoholic hepatitis with chronic alcohol use and dependence: Patient had elevated transaminases, AST: 93, ALT 262, total bilirubin 1.4, direct 9.29 at time of admission along with lactic acidosis 2.4. Patient discretion factor was high, 40, meld sodium score 21 which has 7 to 10% of estimated 90-day mortality. Patient was started on prednisone 40 mg daily after stool for occult blood negative. On PPI. CT of the abdomen showed diffuse fatty infiltration of liver. Right upper quadrant sonogram shows hepatomegaly, GB wall thickening and sludge in GB lumen. Acute viral hepatitis panel is pending. Continue lactulose and prednisone as ordered. Started on spironolactone 25 mg daily as patient has hypokalemia. Lasix changed to 40 mg IV daily. Right upper quadrant and CT abdomen does not show ascites. 12/11: Overall, improvement in total bilirubin, 8.3, DB 7.13 and liver enzymes. ALT 250, AST 708. INR 1.3. Discussed with talent solutions manager for rehab. Patient refused to see 180 talent solutions manager. Chronic hypoalbuminemia with hypergammaglobulinemia again suggestive of chronic alcoholic hepatitis. Does not have relative with high risk of alcohol relapse. Monitor labs. 2. Severe hypokalemia/hypomagnesemia, K is 2.5, magnesium is 1.8: K2.6. Magnesium 1.7. Potassium replaced. 12/11: Persistent hypokalemia although as per charting patient does not have major diarrhea. Magnesium 1.9, phosphorus 4.4. Potassium getting replaced. Spironolactone dose increased to 25 mg twice daily. 3. Severe anemia, Hb is 7.5 today, status post 1 unit packed RBC, unclear etiology, hemoglobin increased to 10/32.6 probably secondary to hemoconcentration. BUN went up from 4-10. Creatinine same but patient has low body mass/muscle volume. Lasix decreased to 40 mg daily. 4. Probable Acute on chronic GI bleed, patient reports history of melena, FOBT has been negative, PPI changed to oral. Discussed with surgeon Dr. Delgado and she agreed for outpatient EGD. 5. Severe sepsis likely secondary to Acute UTI, Urine culture shows no growth, IV ceftriaxone 6. Acute alcohol withdrawal, in a patient with chronic heavy alcohol use, admitted with alcohol level of 130 continue with Ativan withdrawal 7. Seizure disorder, continue on Keppra 8. Hypertension, uncontrolled likely secondary to alcohol withdrawal Continue on metoprolol, hydralazine as needed 9. Bipolar disorder/anxiety, continue on Celexa, Seroquel, Remeron 10. Bilateral leg edema likely related to acute liver failure, acute DVT ruled out from negative dopplers. 11. DVT PPx- SCDs 12. Debility related to the above, patient is currently a 2-person assist PT/OT to evaluate and treat Inpatient E&M: 17759 Subs Hosp L2
[2020-12-11 21:44] VITALS: BP 121/77; PULSE 82; RESP 18; TEMP 36.8; O2SAT 97
[2020-12-11] MEDS: Mirtazapine 15 MG Tablet 45 MG PO (21:46)
[2020-12-11] MEDS: Atorvastatin Calcium 40 MG Tablet PO (21:46)
[2020-12-11] MEDS: QUEtiapine 100 MG Tablet 200 MG PO (21:46)
[2020-12-12] VITALS (7 sets, daily range): BP systolic 121–135; BP diastolic 71–81; PULSE 75–85; RESP 16–18; TEMP 36.6–36.9; O2SAT 95–98
[2020-12-12] MEDS: Dicyclomine 10 MG Capsule 20 MG PO (02:48)
[2020-12-12 07:17] LABS: Absolute Neutrophil Count 7.6 X10^3/uL (2.0-7.7); Basophil# 0.01 X10^3/uL; Basophil% 0.1 % (0-1); Hematocrit 27.7 % (40-54); Hemoglobin 8.5 g/dL (13.0-16.5); Lymphocyte % 21.2 % (19-41); Mean Corp Hgb Conc 30.7 g/dL (32-36); Mean Corpuscular Hgb 36.6 pg (27.0-32.0); Mean Corpuscular Volume 119.4 fL (80-94); Monocyte# 0.76 X10^3/uL; NRBC Flagged by Analyzer 0.3 % (0-5); Neutrophil # 7.64 X10^3/uL (2.7-7.7); Neutrophil % 70.6 % (47-70); POSITIVE MORPHOLOGY YES; Platelet Count 239 K/mm3 (150-450); Red Blood Count 2.32 M/mm3 (4.6-6.2); White Blood Count 10.8 K/mm3 (4.4-11.0)
[2020-12-12 07:27] LABS: Differential Indicated SCAN CRITERIA MET
[2020-12-12 07:54] LABS: ALB/GLOB Ratio 0.4 RATIO (0.9-2.4); AST(SGOT) 559 U/L (15-37); Alanine Aminotransfer ALT/SGPT 221 U/L (16-61); Albumin, Serum 1.7 g/dL (3.2-5.0); Alkaline Phosphatase 322 U/L (45-117); Anion Gap 5 (5-15); BUN 18 mg/dL (7-18); BUN/Creat Ratio 22.4 RATIO (10-20); Calcium,Total 8.5 mg/dL (8.5-10.1); Chloride 99 mmol/L (98-107); EST Glomerular Filtration Rate 103 mL/min (>60); Est Glom Filt Rate - Afr Amer 125 mL/min (>60); Estimated Creatinine Clearance 101.97 ml/min; GGTP 1270 U/L (15-85); Globulin 4.4 g/dL (2.2-4.2); Glucose 107 mg/dL (74-106); Potassium 3.1 mmol/L (3.5-5.1); Protein, Total 6.1 g/dL (6.4-8.2); Sodium Level 137 mmol/L (136-145)
[2020-12-12] MEDS: Thiamine Hydrochloride 100 MG Tablet PO ×2 (08:29→18:31)
[2020-12-12] MEDS: Folic Acid 1 MG Tablet PO (08:29)
[2020-12-12] MEDS: prednisoLONE soln 15 MG/5 ML UDC 40 MG PO (08:30)
[2020-12-12] MEDS: Multivitamins,Therapeutic Tablet 1 TABLET PO (08:30)
[2020-12-12] MEDS: Citalopram 20 MG Tablet PO (08:31)
[2020-12-12] MEDS: Lactulose 20 GM/30 ML UDC PO ×2 (08:32→22:27)
[2020-12-12] MEDS: levETIRAcetam 500 MG Tablet PO ×2 (08:32→22:27)
[2020-12-12] MEDS: Furosemide 40 MG/4 ML Vial IV (08:32)
[2020-12-12] MEDS: Metoprolol(XL)Succ 50 MG Tablet PO (08:33)
[2020-12-12] MEDS: Pantoprazole Sodium 40 MG Tablet PO ×2 (08:33→22:27)
[2020-12-12 08:48] LABS: Ferritin 2141 ng/mL (26-388); Iron 173 ug/dL (65-175); Iron Binding Capacity,Total 198 ug/dL (250-450); PERCENT IRON SATURATION 87.4 % (15.0-55.0)
[2020-12-12 09:53] LABS: Platelet Count 180 K/mm3 (150-450); RET-HE 37.3 pg (30-35); Reticulocyte Count 12.08 % (0.5-1.5)
--- NOTE | 2020-12-12 10:02 | CASEMGMT ---
Addendum entered by Dee Lundberg 12/12/20 16:00: SW updated pt that [facility] is able to accept pt pending pre-cert. Pt states understanding. Original Note: Social Work Note SW received message from Moon at [facility] stating they are able to accept pt and will submit for pre-cert. Plan: [facility] pending pre-cert Dee Lundberg MEDICAL OFFICE SPECIALIST, HUMAN RESOURCES TALENT MANAGER
[2020-12-12] MEDS: Ceftriaxone 1 GM/50 ML BAG IV (10:36)
[2020-12-12] MEDS: Magnesium Chloride 64 MG Delay Rel.Tablet 128 MG PO (10:37)
[2020-12-12] MEDS: Spironolactone 25 MG Tablet PO ×2 (10:37→22:27)
[2020-12-12] MEDS: Pramipexole Di-HCl 0.125 MG Tablet PO ×2 (13:00→22:27)
--- NOTE | 2020-12-12 15:21 | PCM.PN.HOSP ---
Patient Problems: Active and Suspected Problems (Last Reviewed 04/20/20 @ 17:[address] Татьяна Gamble, DO) Alcoholic hepatitis with ascites (Acute) Anemia, unspecified (Acute) Jaundice (Acute) Gross hematuria (Acute) Lactic acidosis (Acute) Urinary tract infection (Acute) Hypokalemia (Acute) Alcohol withdrawal (Acute) Severe sepsis (Acute) due to PNA and UTI Alcoholic hepatitis (Acute) Seizure (Suspected) Reason for Visit: Follow-up for alcoholic hepatitis Objective: Patient is more awake alert and oriented x3. He is sitting in the chair. Hemoglobin dropped from 9.5-8.5 although there is no obvious bleeding in the diaper or vomiting. Patient having bowel movement. Heart rate and blood pressure in normal range. Physical exam General: Alert, Oriented x3, Cooperative. Deep yellow icterus all over body and eyes HEENT: Atraumatic, PERRLA, EOMI, Normocephalic Oral: No Gingival or Mucosal Lesions/ Ulcerations Neck: Supple, No JVD, Negative Carotid Bruits Lungs: Air entry diminished in bilateral lung bases. No crepitation/rhonchi Cardiovascular: Regular rate, Regular Rhythm, Normal S1, Normal S2, No murmurs Abdomen: Liver mildly enlarged but not tender. Bowel Sounds Present, Soft, Non-Distended : No renal angle tenderness. No suprapubic tenderness. Extremities: No edema, Capillary Refill Less than 3 Seconds Skin: No rashes, No breakdown Musculoskeletal: No Tenderness to Palpation of Joints or Extremities Neurological: Cranial nerves II-XII grossly intact, Deep Tendon Reflexes 2+/4 and Symmetrical, Neuro grossly intact Psych/Mental Status: Intermittent flat affect and sadness. Vitals/I&O's: Vital Signs Temp Pulse Resp BP Pulse Ox 98.5 F 82 18 130/81 H 95 12/12/20 08:47 12/12/20 08:51 12/12/20 08:51 12/12/20 08:47 12/12/20 08:51 Oxygen Flow Rate (L/min) 2 Oxygen Delivery Method Nasal Cannula Weight: 180 lb 8 oz Body Mass Index (BMI) 27.8 Finger Stick Blood Glucose 125 Intake and Output for Last 24 Hours 12/10/20 12/11/20 12/12/20 23:59 23:59 23:59 Intake Total 766.67 / 766.67 1400 / 1700 1100 / 1100 Output Total 575 / 575 Balance 191.67 / 191.67 1400 / 1700 1100 / 1100 Microbiology Past 72 Hours 12/07/20 11:17 Blood Culture (Wb) - Right Hand Blood Culture - Final No growth in 5 days. Laboratory Results 12/12/20 06:45: WBC 10.8, RBC 2.32 L, Hgb 8.5 L, Hct 27.7 L, MCV 119.4 H, MCH 36.6 H, MCHC 30.7 L, RDW Std Deviation Not Reportable, RDW Coeff of William Not Reportable, Plt Count 239, MPV 10.0, Immature Gran % (Auto) 1.100 H, Neut % (Auto) 70.6 H, Lymph % (Auto) 21.2, [place] % (Auto) 7.0, Eos % (Auto) 0.0, Baso % (Auto) 0.1, Absolute Neuts (auto) 7.6, Absolute Lymphs (auto) 2.30, Nucleated RBC % 0.3, Differential Comment COMMENT 12/12/20 06:45: Sodium 137, Potassium 3.1 L, Chloride 99, Carbon Dioxide 33.0 H, Anion Gap 5, BUN 18, Creatinine 0.80, Estim Creat Clear Calc 101.97, Est GFR (MDRD) Af Amer 125, Est GFR (MDRD) Non-Af 103, BUN/Creatinine Ratio 22.4 H, Glucose 107 H, Calcium 8.5, Total Bilirubin 6.40 H, GGT 1270 H, AST 559 H, ALT 221 H, Alkaline Phosphatase 322 H, Total Protein 6.1 L, Albumin 1.7 L, Globulin 4.4 H, Albumin/Globulin Ratio 0.4 L 12/12/20 06:45: Retic Count 12.08 H, Immature Retic Fraction 32.60 H, Retic Hgb Equivalent 37.3 H 12/12/20 06:45: Iron 173, TIBC 198 L, Iron Saturation 87.4 H, Ferritin 2141 H Current Medications Albuterol Sulfate (Albuterol 2.5 Mg/3 Ml Vial.Neb.) 2.5 mg INHALATION Q2H PRN PRN PRN Reason: SOB/Wheezing Atorvastatin Calcium (Atorvastatin Calcium 40 Mg Tablet) 40 mg PO DAILY@2200 [facility] Last Admin: 12/11/20 21:46 Dose: 40 mg Documented by: Citalopram Hydrobromide (Citalopram 20 Mg Tablet) 20 mg PO DAILY [facility] Last Admin: 12/12/20 08:31 Dose: 20 mg Documented by: Dicyclomine HCl (Dicyclomine 10 Mg Capsule) 20 mg PO Q6H PRN PRN PRN Reason: abdominal discomfort Last Admin: 12/12/20 02:48 Dose: 20 mg Documented by: Folic Acid (Folic Acid 1 Mg Tablet) 1 mg PO DAILY@0800 [facility] Last Admin: 12/12/20 08:29 Dose: 1 mg Documented by: Furosemide (Furosemide 40 Mg/4 Ml Vial) 40 mg IV DAILY [facility] Last Admin: 12/12/20 08:32 Dose: 40 mg Documented by: Hydralazine HCl (Hydralazine 20 Mg/Ml Vial) 5 mg IV Q4H PRN PRN PRN Reason: BLOOD PRESSURE Ceftriaxone Sodium (Rocephin) 1 gm in 50 mls @ 100 mls/hr IV Q24 [facility] Last Infusion: 12/12/20 11:06 Dose: Infused Documented by: Lactulose (Lactulose 20 Gm/30 Ml Udc) 20 gm PO BID [facility] Last Admin: 12/12/20 08:32 Dose: 20 gm Documented by: Levetiracetam (Levetiracetam 500 Mg Tablet) 500 mg PO BID [facility] Last Admin: 12/12/20 08:32 Dose: 500 mg Documented by: Loperamide HCl (Loperamide 2 Mg Capsule) 2 mg PO Q4H PRN PRN PRN Reason: LOOSE STOOLS Magnesium Chloride (Magnesium Chloride 64 Mg Delay Rel.Tablet) 128 mg PO DAILY [facility] Last Admin: 12/12/20 10:37 Dose: 128 mg Documented by: Metoprolol Succinate (Metoprolol(Xl)Succ 50 Mg Tablet) 50 mg PO DAILY [facility] Last Admin: 12/12/20 08:33 Dose: 50 mg Documented by: Mirtazapine (Mirtazapine 15 Mg Tablet) 45 mg PO QHS [facility] Last Admin: 12/11/20 21:46 Dose: 45 mg Documented by: Multivitamins (Multivitamins,Therapeutic Tablet) 1 tablet PO DAILY@0800 [facility] Last Admin: 12/12/20 08:30 Dose: 1 tablet Documented by: Pantoprazole Sodium (Pantoprazole Sodium 40 Mg Tablet) 40 mg PO BID [facility] Last Admin: 12/12/20 08:33 Dose: 40 mg Documented by: Pramipexole Dihydrochloride (Pramipexole Di-Hcl 0.125 Mg Tablet) 0.125 mg PO TID [facility] Last Admin: 12/12/20 13:00 Dose: 0.125 mg Documented by: Prednisolone Sodium Phosphate (Prednisolone Soln 15 Mg/5 Ml Udc) 40 mg PO DAILY@0800 [facility] Last Admin: 12/12/20 08:30 Dose: 40 mg Documented by: Quetiapine Fumarate (Quetiapine 100 Mg Tablet) 200 mg PO QHS [facility] Last Admin: 12/11/20 21:46 Dose: 200 mg Documented by: Senna/Docusate Sodium (Senna/Docusate Sodium 1 Tablet) 2 tablet PO BID PRN PRN PRN Reason: Constipation Sodium Chloride (0.9% Saline Lock 10 Ml Syringe) 10 - 40 ml IV UD PRN PRN Reason: SALINE FLUSH Last Admin: 12/10/20 17:03 Dose: 10 ml Documented by: Spironolactone (Spironolactone 25 Mg Tablet) 25 mg PO BID [facility] Last Admin: 12/12/20 10:37 Dose: 25 mg Documented by: Thiamine HCl ([facility]amine Hydrochloride 100 Mg Tablet) [facility] Last Admin: 12/12/20 08:29 Dose: 100 mg Documented by: Medical Necessity - Tobacco Use Smoking Status: Current every day smoker Tobacco Use: Pipe Assessment/Plan All Active Problems (Last Reviewed 04/20/20 @ 17:[address] Татьяна Gamble, DO) Alcoholic hepatitis with ascites (Acute) Anemia, unspecified (Acute) Jaundice (Acute) Gross hematuria (Acute) Lactic acidosis (Acute) Urinary tract infection (Acute) Hypokalemia (Acute) Elevated CPK (Acute) Alcohol withdrawal (Acute) Severe sepsis (Acute) Alcoholic hepatitis (Acute) Hyponatremia (Acute) 60-year-old male with past medical history of chronic alcohol use and disorder was admitted with dark tarry stool, dark urine and elevated transaminases. Heavy alcohol use who comes in with dark tarry stools and dark urine 1. Acute alcoholic hepatitis with chronic alcohol use and dependence: Patient had elevated transaminases, AST: 93, ALT 262, total bilirubin 1.4, direct 9.29 at time of admission along with lactic acidosis 2.4. Patient discretion factor was high, 40, meld sodium score 21 which has 7 to 10% of estimated 90-day mortality. Patient was started on prednisone 40 mg daily after stool for occult blood negative. On PPI. CT of the abdomen showed diffuse fatty infiltration of liver. Right upper quadrant sonogram shows hepatomegaly, GB wall thickening and sludge in GB lumen. Acute viral hepatitis panel is pending. Continue lactulose and prednisone as ordered. Started on spironolactone 25 mg daily as patient has hypokalemia. Lasix changed to 40 mg IV daily. Right upper quadrant and CT abdomen does not show ascites. 12/11: Overall, improvement in total bilirubin, 8.3, DB 7.13 and liver enzymes. ALT 250, AST 708. INR 1.3. Discussed with emergency planning and response manager for rehab. Patient refused to see 180 emergency planning and response manager. Chronic hypoalbuminemia with hypergammaglobulinemia again suggestive of chronic alcoholic hepatitis. Does not have relative with high risk of alcohol relapse. Monitor labs. 12/12: Continued improvement in total bilirubin and transaminases. GGT 1270. Ferritin about 2000, iron 173, TIBC 198 suggestive of anemia of chronic disease actually favors more secondary iron overload from chronic liver disease. Transferrin saturation 87%. Avoid any iron supplement. 2. Severe hypokalemia/hypomagnesemia, K is 2.5, magnesium is 1.8: K2.6. Magnesium 1.7. Potassium replaced. 12/11: Persistent hypokalemia although as per charting patient does not have major diarrhea. Magnesium 1.9, phosphorus 4.4. Potassium getting replaced. Spironolactone dose increased to 25 mg twice daily. 12/12 K3.1 better. Potassium supplement ordered. 3. Probable Acute on chronic GI bleed, patient reports history of melena, anemia of chronic disease with secondary iron overload FOBT has been negative, PPI changed to oral. Discussed with surgeon Dr. Delgado and she agreed for outpatient EGD. Patient had 1 unit of PRBC transfusion. 12/12: Hemoglobin dropped again from 10.0-8.5. MCV elevated. Overall iron studies and reticulocyte count is history of anemia of chronic disease. Immature reticulocyte fraction and reticulocyte count elevated suggestive of responsive bone marrow 4. Severe sepsis likely secondary to Acute UTI, Urine culture shows no growth, IV ceftriaxone 5. Acute alcohol withdrawal, in a patient with chronic heavy alcohol use, admitted with alcohol level of 130 continue with Ativan withdrawal 6. Seizure disorder, continue on Keppra 7. Hypertension, uncontrolled likely secondary to alcohol withdrawal Continue on metoprolol, hydralazine as needed 8. Bipolar disorder/anxiety, continue on Celexa, Seroquel, Remeron 9. Bilateral leg edema likely related to acute liver failure, acute DVT ruled out from negative dopplers. 10. DVT PPx- SCDs 11. Debility related to the above, patient is currently a 2-person assist PT/OT to evaluate and treat. Discussed with the emergency planning and response manager. Patient agreed for rehab. Also discussed with the alcohol rehab emergency planning and response manager, Dalila. Inpatient E&M: 66956 Subs Hosp L2
[2020-12-12] MEDS: Potassium Chloride Oral Tablet 20 MEQ 40 MEQ PO ×2 (16:00→18:34)
[2020-12-12] MEDS: QUEtiapine 100 MG Tablet 200 MG PO (22:27)
[2020-12-12] MEDS: 0.9% Saline Lock 10 ML Syringe IV (22:27)
[2020-12-12] MEDS: Atorvastatin Calcium 40 MG Tablet PO (22:27)
[2020-12-12] MEDS: Mirtazapine 15 MG Tablet 45 MG PO (22:27)
[2020-12-13 02:34] VITALS: BP 152/77; PULSE 71; RESP 17; TEMP 36.8; O2SAT 96
[2020-12-13] MEDS: Pramipexole Di-HCl 0.125 MG Tablet PO ×3 (06:01→21:43)
[2020-12-13 06:24] LABS: Absolute Lymphocyte Count 1.98 X10^3/uL (0.83-4.51); Absolute Neutrophil Count 6.8 X10^3/uL (2.0-7.7); Basophil# 0.01 X10^3/uL; Basophil% 0.1 % (0-1); Differential Indicated SCAN CRITERIA MET; Eosinophil# 0.02 X10^3/uL; Eosinophils% 0.2 % (0-5); Hematocrit 27.3 % (40-54); Hemoglobin 8.2 g/dL (13.0-16.5); Lymphocyte # 1.98 X10^3/ul (4.0); Lymphocyte % 20.7 % (19-41); Mean Corpuscular Hgb 36.4 pg (27.0-32.0); Mean Corpuscular Volume 121.3 fL (80-94); Mean Platelet Vol. 9.5 fl (6.2-12.0); Monocyte# 0.64 X10^3/uL; Monocyte% 6.7 % (0-10); NRBC Flagged by Analyzer 0.2 % (0-5); Neutrophil # 6.81 X10^3/uL (2.7-7.7); POSITIVE MORPHOLOGY YES; Platelet Count 222 K/mm3 (150-450); Red Blood Count 2.25 M/mm3 (4.6-6.2); White Blood Count 9.6 K/mm3 (4.4-11.0)
[2020-12-13 06:51] LABS: ALB/GLOB Ratio 0.4 RATIO (0.9-2.4); AST(SGOT) 590 U/L (15-37); Alanine Aminotransfer ALT/SGPT 241 U/L (16-61); Albumin, Serum 1.6 g/dL (3.2-5.0); Alkaline Phosphatase 302 U/L (45-117); Anion Gap 4 (5-15); BUN 14 mg/dL (7-18); BUN/Creat Ratio 21.5 RATIO (10-20); Calcium,Total 8.5 mg/dL (8.5-10.1); Chloride 99 mmol/L (98-107); Creatinine, Serum 0.65 mg/dL (0.70-1.30); EST Glomerular Filtration Rate 132 mL/min (>60); Est Glom Filt Rate - Afr Amer 160 mL/min (>60); Globulin 4.2 g/dL (2.2-4.2); Glucose 90 mg/dL (74-106); Potassium 3.4 mmol/L (3.5-5.1); Protein, Total 5.8 g/dL (6.4-8.2); Sodium Level 137 mmol/L (136-145)
[2020-12-13 06:56] LABS: Ovalocyte 1+; Polychromasia 1+; Stomatocyte 1+
--- NOTE | 2020-12-13 07:25 | PCM.PN.HOSP ---
Patient Problems: Active and Suspected Problems (Last Reviewed 04/20/20 @ 17:[address] Татьяна Gamble, DO) Alcoholic hepatitis with ascites (Acute) Anemia, unspecified (Acute) Jaundice (Acute) Gross hematuria (Acute) Lactic acidosis (Acute) Urinary tract infection (Acute) Hypokalemia (Acute) Alcohol withdrawal (Acute) Severe sepsis (Acute) due to PNA and UTI Alcoholic hepatitis (Acute) Seizure (Suspected) Reason for Visit: Follow-up for alcoholic hepatitis Objective: Heart rate and blood pressure are in acceptable limit. Afebrile. Total bili is 5.5. Hemoglobin slowly dropping 8.2. It is awake alert oriented x3 and seems patient is understanding. Mild cough Physical exam General: Alert, Oriented x3, Cooperative HEENT: Deep icterus, atraumatic, PERRLA, EOMI, Normocephalic Oral: No Gingival or Mucosal Lesions/ Ulcerations Neck: Supple, No JVD, Negative Carotid Bruits Lungs: Air entry diminished in bilateral lung bases. Mild expiratory rhonchi Cardiovascular: Regular rate, Regular Rhythm, Normal S1, Normal S2, No murmurs Abdomen: Bowel Sounds Present, Soft, Non Tender, Non-Distended. No ascites : No renal angle tenderness. No suprapubic tenderness. Extremities: No edema, Capillary Refill Less than 3 Seconds Skin: No rashes, No breakdown Musculoskeletal: Mild muscle atrophy of extremities and loss of subcutaneous fat. No Tenderness to Palpation of Joints or Extremities Neurological: Cranial nerves II-XII grossly intact, nonfocal exam. Psych/Mental Status: Intermittent disorientation, flat affect Vitals/I&O's: Vital Signs Temp Pulse Resp BP Pulse Ox 98.3 F 71 17 152/77 H 96 12/13/20 02:34 12/13/20 02:34 12/13/20 02:34 12/13/20 02:34 12/13/20 02:34 Oxygen Flow Rate (L/min) 2 Oxygen Delivery Method Room Air Weight: 181 lb 4.8 oz Body Mass Index (BMI) 27.8 Finger Stick Blood Glucose 125 Intake and Output for Last 24 Hours 12/11/20 12/12/20 12/13/20 23:59 23:59 23:59 Intake Total 1400 / 1700 1599 / 1974 725 / 725 Balance 1400 / 0 1599 / 1974 725 / 725 Microbiology Past 72 Hours 12/07/20 11:17 Blood Culture (Wb) - Right Hand Blood Culture - Final No growth in 5 days. Laboratory Results 12/12/20 06:45: WBC 10.8, RBC 2.32 L, Hgb 8.5 L, Hct 27.7 L, MCV 119.4 H, MCH 36.6 H, MCHC 30.7 L, RDW Std Deviation Not Reportable, RDW Coeff of William Not Reportable, Plt Count 239, MPV 10.0, Immature Gran % (Auto) 1.100 H, Neut % (Auto) 70.6 H, Lymph % (Auto) 21.2, [place] % (Auto) 7.0, Eos % (Auto) 0.0, Baso % (Auto) 0.1, Absolute Neuts (auto) 7.6, Absolute Lymphs (auto) 2.30, Nucleated RBC % 0.3, Differential Comment COMMENT 12/12/20 06:45: Sodium 137, Potassium 3.1 L, Chloride 99, Carbon Dioxide 33.0 H, Anion Gap 5, BUN 18, Creatinine 0.80, Estim Creat Clear Calc 101.97, Est GFR (MDRD) Af Amer 125, Est GFR (MDRD) Non-Af 103, BUN/Creatinine Ratio 22.4 H, Glucose 107 H, Calcium 8.5, Total Bilirubin 6.40 H, GGT 1270 H, AST 559 H, ALT 221 H, Alkaline Phosphatase 322 H, Total Protein 6.1 L, Albumin 1.7 L, Globulin 4.4 H, Albumin/Globulin Ratio 0.4 L 12/12/20 06:45: Retic Count 12.08 H, Immature Retic Fraction 32.60 H, Retic Hgb Equivalent 37.3 H 12/12/20 06:45: Iron 173, TIBC 198 L, Iron Saturation 87.4 H, Ferritin 2141 H 12/13/20 06:15: WBC 9.6, RBC 2.25 L, Hgb 8.2 L, Hct 27.3 L, MCV 121.3 H, MCH 36.4 H, MCHC 30.0 L, RDW Std Deviation Not Reportable, RDW Coeff of William Not Reportable, Plt Count 222, MPV 9.5, Immature Gran % (Auto) 1.300 H, Neut % (Auto) 71.0 H, Lymph % (Auto) 20.7, [place] % (Auto) 6.7, Eos % (Auto) 0.2, Baso % (Auto) 0.1, Absolute Neuts (auto) 6.8, Absolute Lymphs (auto) 1.98, Nucleated RBC % 0.2, Polychromasia 1+, Ovalocytes 1+, Stomatocytes 1+ 12/13/20 06:15: Sodium 137, Potassium 3.4 L, Chloride 99, Carbon Dioxide 34.0 H, Anion Gap 4 L, BUN 14, Creatinine 0.65 L, Estim Creat Clear Calc 125.50, Est GFR (MDRD) Af Amer 160, Est GFR (MDRD) Non-Af 132, BUN/Creatinine Ratio 21.5 H, Glucose 90, Calcium 8.5, Total Bilirubin 5.10 H, AST 590 H, ALT 241 H, Alkaline Phosphatase 302 H, Total Protein 5.8 L, Albumin 1.6 L, Globulin 4.2, Albumin/Globulin Ratio 0.4 L Current Medications Albuterol Sulfate (Albuterol 2.5 Mg/3 Ml Vial.Neb.) 2.5 mg INHALATION Q2H PRN PRN PRN Reason: SOB/Wheezing Atorvastatin Calcium (Atorvastatin Calcium 40 Mg Tablet) 40 mg PO DAILY@2200 [facility] Last Admin: 12/12/20 22:27 Dose: 40 mg Documented by: Citalopram Hydrobromide (Citalopram 20 Mg Tablet) 20 mg PO DAILY [facility] Last Admin: 12/12/20 08:31 Dose: 20 mg Documented by: Dicyclomine HCl (Dicyclomine 10 Mg Capsule) 20 mg PO Q6H PRN PRN PRN Reason: abdominal discomfort Last Admin: 12/12/20 02:48 Dose: 20 mg Documented by: Folic Acid (Folic Acid 1 Mg Tablet) 1 mg PO DAILY@0800 [facility] Last Admin: 12/12/20 08:29 Dose: 1 mg Documented by: Furosemide (Furosemide 40 Mg/4 Ml Vial) 40 mg IV DAILY [facility] Last Admin: 12/12/20 08:32 Dose: 40 mg Documented by: Hydralazine HCl (Hydralazine 20 Mg/Ml Vial) 5 mg IV Q4H PRN PRN PRN Reason: BLOOD PRESSURE Ceftriaxone Sodium (Rocephin) 1 gm in 50 mls @ 100 mls/hr IV Q24 [facility] Last Infusion: 12/12/20 11:06 Dose: Infused Documented by: Lactulose (Lactulose 20 Gm/30 Ml Udc) 20 gm PO BID [facility] Last Admin: 12/12/20 22:27 Dose: 20 gm Documented by: Levetiracetam (Levetiracetam 500 Mg Tablet) 500 mg PO BID [facility] Last Admin: 12/12/20 22:27 Dose: 500 mg Documented by: Loperamide HCl (Loperamide 2 Mg Capsule) 2 mg PO Q4H PRN PRN PRN Reason: LOOSE STOOLS Magnesium Chloride (Magnesium Chloride 64 Mg Delay Rel.Tablet) 128 mg PO DAILY [facility] Last Admin: 12/12/20 10:37 Dose: 128 mg Documented by: Metoprolol Succinate (Metoprolol(Xl)Succ 50 Mg Tablet) 50 mg PO DAILY [facility] Last Admin: 12/12/20 08:33 Dose: 50 mg Documented by: Mirtazapine (Mirtazapine 15 Mg Tablet) 45 mg PO QHS [facility] Last Admin: 12/12/20 22:27 Dose: 45 mg Documented by: Multivitamins (Multivitamins,Therapeutic Tablet) 1 tablet PO DAILY@0800 [facility] Last Admin: 12/12/20 08:30 Dose: 1 tablet Documented by: Pantoprazole Sodium (Pantoprazole Sodium 40 Mg Tablet) 40 mg PO BID [facility] Last Admin: 12/12/20 22:27 Dose: 40 mg Documented by: Pramipexole Dihydrochloride (Pramipexole Di-Hcl 0.125 Mg Tablet) 0.125 mg PO TID [facility] Last Admin: 12/13/20 06:01 Dose: 0.125 mg Documented by: Prednisolone Sodium Phosphate (Prednisolone Soln 15 Mg/5 Ml Udc) 40 mg PO DAILY@0800 [facility] Last Admin: 12/12/20 08:30 Dose: 40 mg Documented by: Quetiapine Fumarate (Quetiapine 100 Mg Tablet) 200 mg PO QHS [facility] Last Admin: 12/12/20 22:27 Dose: 200 mg Documented by: Senna/Docusate Sodium (Senna/Docusate Sodium 1 Tablet) 2 tablet PO BID PRN PRN PRN Reason: Constipation Sodium Chloride (0.9% Saline Lock 10 Ml Syringe) 10 - 40 ml IV UD PRN PRN Reason: SALINE FLUSH Last Admin: 12/12/20 22:27 Dose: 10 ml Documented by: Spironolactone (Spironolactone 25 Mg Tablet) 25 mg PO BID [facility] Last Admin: 12/12/20 22:27 Dose: 25 mg Documented by: Thiamine HCl (Thiamine Hydrochloride 100 Mg Tablet) [facility] Last Admin: 12/12/20 18:31 Dose: 100 mg Documented by: Medical Necessity - Tobacco Use Smoking Status: Current every day smoker Tobacco Use: Pipe Assessment/Plan All Active Problems (Last Reviewed 04/20/20 @ 17:[address] Татьяна Gamble, DO) Alcoholic hepatitis with ascites (Acute) Anemia, unspecified (Acute) Jaundice (Acute) Gross hematuria (Acute) Lactic acidosis (Acute) Urinary tract infection (Acute) Hypokalemia (Acute) Elevated CPK (Acute) Alcohol withdrawal (Acute) Severe sepsis (Acute) Alcoholic hepatitis (Acute) Hyponatremia (Acute) 60-year-old male with past medical history of chronic alcohol use and disorder was admitted with dark tarry stool, dark urine and elevated transaminases. Heavy alcohol use who comes in with dark tarry stools and dark urine 1. Acute alcoholic hepatitis with chronic alcohol use and dependence: Patient had elevated transaminases, AST: 93, ALT 262, total bilirubin 1.4, direct 9.29 at time of admission along with lactic acidosis 2.4. Patient discretion factor was high, 40, meld sodium score 21 which has 7 to 10% of estimated 90-day mortality. Patient was started on prednisone 40 mg daily after stool for occult blood negative. On PPI. CT of the abdomen showed diffuse fatty infiltration of liver. Right upper quadrant sonogram shows hepatomegaly, GB wall thickening and sludge in GB lumen. Acute viral hepatitis panel is pending. Continue lactulose and prednisolone as ordered. Started on spironolactone 25 mg daily as patient has hypokalemia. Lasix changed to 40 mg IV daily. Right upper quadrant and CT abdomen does not show ascites. 12/11: Overall, improvement in total bilirubin, 8.3, DB 7.13 and liver enzymes. ALT 250, AST 708. INR 1.3. Discussed with case finishing machine adjuster for rehab. Patient refused to see 180 case finishing machine adjuster. Chronic hypoalbuminemia with hypergammaglobulinemia again suggestive of chronic alcoholic hepatitis. Does not have relative with high risk of alcohol relapse. Monitor labs. 12/12: Continued improvement in total bilirubin and transaminases. GGT 1270. Ferritin about 2000, iron 173, TIBC 198 suggestive of anemia of chronic disease actually favors more secondary iron overload from chronic liver disease. Transferrin saturation 87%. Avoid any iron supplement. 12/13: Based on seventh day liver chemistry, [place] score calculated. It is 0.593 which falls in the category of nonresponder of prednisone for alcoholic hepatitis and does not qualify for full 4 weeks of treatment. Prednisolone discontinued 2. Severe hypokalemia/hypomagnesemia, K is 2.5, magnesium is 1.8: K2.6. Magnesium 1.7. Potassium replaced. 12/11: Persistent hypokalemia although as per charting patient does not have major diarrhea. Magnesium 1.9, phosphorus 4.4. Potassium getting replaced. Spironolactone dose increased to 25 mg twice daily. 12/12 K3.1 better. Potassium supplement ordered. 12/13: Potassium is still low K3.4. K. Dur 40 M EQ twice daily ordered. Monitor electrolytes and magnesium tomorrow a.m. 3. Probable Acute on chronic GI bleed, patient reports history of melena, anemia of chronic disease with secondary iron overload FOBT has been negative, PPI changed to oral. Discussed with surgeon Dr. Delgado and she agreed for outpatient EGD. Patient had 1 unit of PRBC transfusion. 12/12: Hemoglobin dropped again from 10.0-8.5. MCV elevated. Overall iron studies and reticulocyte count is history of anemia of chronic disease. Immature reticulocyte fraction and reticulocyte count elevated suggestive of responsive bone marrow 12/13: H&H 8.12/15. No obvious bleeding. 4. UTI ruled out. Urine culture shows no growth, IV ceftriaxone discontinued UTI ruled out. 5. Acute alcohol withdrawal, in a patient with chronic heavy alcohol use, admitted with alcohol level of 130 continue with Ativan withdrawal 6. Seizure disorder, continue on Keppra 7. Hypertension, uncontrolled likely secondary to alcohol withdrawal Continue on metoprolol, hydralazine as needed 8. Bipolar disorder/anxiety, continue on Celexa, Seroquel, Remeron 9. Bilateral leg edema likely related to acute liver failure, acute DVT ruled out from negative dopplers. 10. DVT PPx- SCDs 11. Debility related to the above, patient is currently a 2-person assist PT/OT to evaluate and treat. Discussed with the case finishing machine adjuster. Patient agreed for rehab. Also discussed with the alcohol rehab case finishing machine adjuster, Dalila. Inpatient E&M: 13370 Subs Hosp L2
[2020-12-13 07:46] VITALS: BP 146/87; PULSE 86; RESP 14; TEMP 36.9; O2SAT 92; O2SAT 96
[2020-12-13] MEDS: prednisoLONE soln 15 MG/5 ML UDC 40 MG PO (08:32)
[2020-12-13] MEDS: Multivitamins,Therapeutic Tablet 1 TABLET PO (08:32)
[2020-12-13] MEDS: Thiamine Hydrochloride 100 MG Tablet PO ×2 (08:32→17:44)
[2020-12-13] MEDS: Folic Acid 1 MG Tablet PO (08:32)
[2020-12-13 09:16] VITALS: RESP 12; O2SAT 92
[2020-12-13] MEDS: Potassium Chloride Oral Tablet 20 MEQ 40 MEQ PO ×2 (09:18→17:33)
[2020-12-13] MEDS: Spironolactone 25 MG Tablet PO ×2 (10:09→21:42)
[2020-12-13] MEDS: Citalopram 20 MG Tablet PO (10:09)
[2020-12-13] MEDS: Lactulose 20 GM/30 ML UDC PO ×2 (10:09→21:43)
[2020-12-13 10:10] VITALS: PULSE 96
[2020-12-13] MEDS: Ceftriaxone 1 GM/50 ML BAG IV (10:10)
[2020-12-13] MEDS: Pantoprazole Sodium 40 MG Tablet PO ×2 (10:10→21:43)
[2020-12-13] MEDS: Furosemide 40 MG/4 ML Vial IV (10:10)
[2020-12-13] MEDS: Magnesium Chloride 64 MG Delay Rel.Tablet 128 MG PO (10:10)
[2020-12-13] MEDS: levETIRAcetam 500 MG Tablet PO ×2 (10:10→21:43)
[2020-12-13] MEDS: Metoprolol(XL)Succ 50 MG Tablet PO (10:10)
--- NOTE | 2020-12-13 10:23 | CASEMGMT ---
Social Work Note SW received call from Moon at [facility] stating pt's insurance is requesting updated PT/OT. WILD faxed updated clinicals to [facility]. Plan: [facility] pending pre-cert Dee Lundberg MSW, LOSS PREVENTION COORDINATOR
[2020-12-13] MEDS: 0.9% Saline Lock 10 ML Syringe IV (10:55)
--- NOTE | 2020-12-13 11:38 | RAD_ITS ---
STUDY: X-RAY CHEST REASON FOR EXAM: Male, 60 years old. cough, alcoholic. no fever -- R/O Pneumonia TECHNIQUE: Frontal and lateral views of the chest. COMPARISON: 01/04/2021 FINDINGS: Bibasilar subsegmental atelectasis. There is no demonstrated pleural abnormality. Normal size heart. Normal mediastinum and krista. Normal visualized pulmonary arteries. Normal visualized aortic arch and descending thoracic aorta. Normal visualized thoracic spine. Normal visualized ribs, clavicles, and shoulders. There is no demonstrated abnormality of the visualized soft tissue structures of the upper abdomen. RAD/Chest PA and Lateral IMPRESSION: Bibasilar subsegmental atelectasis Electronically Signed: Willam Hudson MD at 17:00 EST , Service support ,
[2020-12-13 14:13] VITALS: BP 121/71; PULSE 82; RESP 14; TEMP 36.9; O2SAT 96
--- NOTE | 2020-12-13 14:20 | CHAPLAIN ---
Type of Pastoral Visit _x__ Initial Visit ___ Follow-up Visit ___ On-call Visit ___ General Patient Visit ___ Spiritual Assessment ___ Family Conference ___ Bereavement ___ Rapid Response ___ Code Blue ___ Other (describe below) Pastoral Care Referral From _x__ Patient ___ Family ___ Nurse ___ Physician ___ Fuel Retrofitting Technician ___ Workplace Trainer And Assessor ___ Other (describe below) Sacrament/Intervention _x__ Active listening ___ Anointing ___ Episcopal ___ Bereavement ___ Communion ___ Zena exploration ___ _x__ Life review _x__ Prayer ___ Reconciliation ___ Sacrament of Sick _x__ Supportive presence ___ Wedding ___ Other (describe below) Pastoral Comments
--- NOTE | 2020-12-13 14:27 | CASEMGMT ---
Addendum entered by Dee Lundberg 12/13/20 16:03: SW in to update pt. SW updated pt that pre-cert is still pending but they have until 5:30pm tonight. SW informed pt that if pre-cert is not obtained by 5:30pm today it will likely be tomorrow. Pt states understanding, asked how long he has to be at [facility]. SW informed pt that it just depends on how well pt does with therapy and when he feels he is safe to return home. SW informed pt that he needs to get stronger before he can discharge home. SW completed convalescent 7000 in HENS. WILD placed HENS, Green sheet, COVID transfer tool, COVID test and transport form on pt's chart in the event pre-cert is obtained. WILD wrote on green sheet that pre-cert must be obtained before pt can discharge. Plan: [facility] pending pre-cert. Pre-cert must be obtained before pt can discharge to [facility]. Original Note: Social Work Note SW placed a call to Moon at [facility] requesting update on pre-cert. Moon states she still hasn't heard yet. Moon states pt's insurance has been working from home and is working until 5:30pm. WILD informed Moon that if she gets pre-cert before 4:00pm to call this worker but if she gets pre-cert after 4:00pm to call [facility] number, number provided. Plan: [facility] pending pre-cert Dee Lundberg PARA MACHINE OPERATOR, ORTHOPEDIC DESIGNER
--- NOTE | 2020-12-13 17:22 | NURSING ---
Student documentation reviewed.
[2020-12-13 19:57] VITALS: BP 110/76; PULSE 88; RESP 18; TEMP 37.2; O2SAT 95
[2020-12-13] MEDS: Atorvastatin Calcium 40 MG Tablet PO (21:42)
[2020-12-13] MEDS: QUEtiapine 100 MG Tablet 200 MG PO (21:43)
[2020-12-13] MEDS: Mirtazapine 15 MG Tablet 45 MG PO (21:43)
[2020-12-14 02:03] VITALS: BP 148/90; PULSE 84; RESP 18; TEMP 37.2; O2SAT 95
[2020-12-14 05:16] LABS: Absolute Lymphocyte Count 2.47 X10^3/uL (0.83-4.51); Absolute Neutrophil Count 7.3 X10^3/uL (2.0-7.7); Basophil# 0.01 X10^3/uL; Basophil% 0.1 % (0-1); Eosinophil# 0.04 X10^3/uL; Eosinophils% 0.4 % (0-5); Hematocrit 28.1 % (40-54); Hemoglobin 8.5 g/dL (13.0-16.5); Lymphocyte # 2.47 X10^3/ul (4.0); Lymphocyte % 22.9 % (19-41); Mean Corp Hgb Conc 30.2 g/dL (32-36); Mean Corpuscular Volume 122.2 fL (80-94); Mean Platelet Vol. 9.4 fl (6.2-12.0); Monocyte# 0.86 X10^3/uL; NRBC Flagged by Analyzer 0 % (0-5); Neutrophil # 7.28 X10^3/uL (2.7-7.7); Neutrophil % 67.6 % (47-70); POSITIVE MORPHOLOGY YES; Platelet Count 248 K/mm3 (150-450); White Blood Count 10.8 K/mm3 (4.4-11.0)
[2020-12-14 05:21] LABS: Differential Indicated SCAN CRITERIA MET
[2020-12-14] MEDS: Pramipexole Di-HCl 0.125 MG Tablet PO ×2 (05:25→14:02)
[2020-12-14 05:37] LABS: ALB/GLOB Ratio 0.4 RATIO (0.9-2.4); AST(SGOT) 646 U/L (15-37); Alanine Aminotransfer ALT/SGPT 280 U/L (16-61); Albumin, Serum 1.7 g/dL (3.2-5.0); Alkaline Phosphatase 289 U/L (45-117); Anion Gap 5 (5-15); BUN 14 mg/dL (7-18); BUN/Creat Ratio 23.1 RATIO (10-20); Calcium,Total 8.4 mg/dL (8.5-10.1); Chloride 100 mmol/L (98-107); Creatinine, Serum 0.61 mg/dL (0.70-1.30); EST Glomerular Filtration Rate 143 mL/min (>60); Est Glom Filt Rate - Afr Amer 173 mL/min (>60); Estimated Creatinine Clearance 133.73 ml/min; Globulin 4.2 g/dL (2.2-4.2); Glucose 103 mg/dL (74-106); Magnesium 1.4 mg/dL (1.6-2.6); Potassium 3.9 mmol/L (3.5-5.1); Protein, Total 5.9 g/dL (6.4-8.2); Sodium Level 138 mmol/L (136-145)
[2020-12-14 05:44] LABS: Phosphorus 3.2 mg/dL (2.5-4.9)
[2020-12-14 06:23] LABS: Differential Comment SCANNED; Macrocytosis 3+; Microcytosis 2+
[2020-12-14 07:12] VITALS: BP 158/88; PULSE 75; RESP 16; TEMP 36.9; O2SAT 95
[2020-12-14] MEDS: Folic Acid 1 MG Tablet PO (08:26)
[2020-12-14] MEDS: Citalopram 20 MG Tablet PO (08:27)
[2020-12-14] MEDS: Pantoprazole Sodium 40 MG Tablet PO (08:27)
[2020-12-14 08:28] VITALS: PULSE 75
[2020-12-14] MEDS: Multivitamins,Therapeutic Tablet 1 TABLET PO (08:28)
[2020-12-14] MEDS: Lactulose 20 GM/30 ML UDC PO (08:28)
[2020-12-14] MEDS: Spironolactone 25 MG Tablet PO (08:28)
[2020-12-14] MEDS: levETIRAcetam 500 MG Tablet PO (08:28)
[2020-12-14] MEDS: Metoprolol(XL)Succ 50 MG Tablet PO (08:28)
[2020-12-14] MEDS: 0.9% Saline Lock 10 ML Syringe IV (08:29)
[2020-12-14] MEDS: Furosemide 40 MG/4 ML Vial IV (08:30)
[2020-12-14] MEDS: Magnesium Chloride 64 MG Delay Rel.Tablet 128 MG PO (08:31)
[2020-12-14] MEDS: Thiamine Hydrochloride 100 MG Tablet PO (08:32)
[2020-12-14 08:33] VITALS: PULSE 75; RESP 18; O2SAT 95
--- NOTE | 2020-12-14 09:01 | CASEMGMT ---
Social Work Note SW received message from Moon at [facility] stating pre-cert was obtained, pt can discharge today. SW updated by RN that pt is now stating he wants to go home, he has bills to pay, needs his new bank card. SW reviewed PT/OT, pt still max assist of 1 and only walked 2 feet. SW in to speak with pt. SW updated pt that pre-cert was obtained and pt can discharge to [facility] today. Pt states I am going home. Pt states again he has bills to pay, needs a new bank card and has to go home. SW asked pt how is he going to get to the bathroom, kitchen at home if he is only able to walk two feet. Pt states I have a friend who will be staying with me. SW asked pt if his friend will be staying 11/05 and pt confirms this. Pt states he told his friend that if he helps him he can stay with him. SW asked pt about his bills. SW asked pt if he can pay his bills online and pt states some of them I can. SW asked pt if this worker can call Diana to see if she can assist with bills. Pt states I've tried calling her, nurses have tried calling her and she won't answer. SW informed pt that this worker could at least try and pt again just stated I am going home, I will sign myself out of I have to and I will call a cab. SW asked pt to at least stay until the physician see's him this morning. Pt became increasingly irritated, SW left the room then. WILD updated RN and RN CM. Dee Lundberg PILOT SUBMERSIBLE, WASTEWATER SUPERVISOR
[2020-12-14] MEDS: Ceftriaxone 1 GM/50 ML BAG IV (09:30)
--- NOTE | 2020-12-14 11:00 | CASEMGMT ---
CECE MSITH in to patient's room with hospitalist, nursing, and SW to discuss discharge planning. Hospitalist, nursing, CM, and SW expressed concerns with patient's safety going home and encourage patient to go to SNF for additional therapy. CM reviewed progress with therapy and that patient is requiring max assistance of 1 for transfers. Patient states he has a friend that will be staying with him rent free that will help. CECE SMITH asked if CM could call his friend to verify that he would be staying and assisting patient. Patient states his phone is and does not have number to call patient. Nursing offered to charge his phone and patient declined as it did not work previously when charged. Patient adamant that he is going home because he has bills and things to take care of at his house. CECE SMITH inquired if we could arrange for someone to bring his bills to him so that he could take care of his affairs while at SNF and patient declined. Patient again states he his going home. Nursing asked how he would get home and patient states he will use a taxi and that his friend and neighbor will help him and he has walker at home. CM inquired if he would like [facility] setup and patient is agreeable to [facility]. CM will provided patient with list and assist with discharge planning.
--- NOTE | 2020-12-14 11:21 | CASEMGMT ---
Social Work Note WILD, CECE SMITH, Physician, RN in to speak with pt regarding discharge plans. Pt is still adamant that he will be discharging home today. Pt agreeable to HHC - RN SARAH working on setting up HHC. WILD placed a call to Silvestre at [facility] and left message that pt is now refusing SNF, will be going home. WILD back in to speak with pt and asked if this worker could just give Diana an update as Diana has been involved in pt's care and she should be updated that pt is going home. Pt gave this worker permission to call Diana. WILD attempted to call Diana's cell phone, no answer, unable to leave message. WILD placed a call to [facility] and was transferred to pt's CM Diana Luong voicemail. WILD left voicemail for Diana Luong and updated her. WILD placed a call to Moon at [facility] and updated her. Laurel states pt's pre-cert is good through the weekend so she will follow up with pt once he gets home to see how pt is doing and if he feels he needs SNF again, she could admit pt from home over the weekend. Plan: Home with HHC. Pt refusing SNF. APS referral has been made. Dee Lundberg SHELLACKER, PENCIL MAKER
--- NOTE | 2020-12-14 11:39 | DCINST_ITS ---
- Discharge Diagnoses Current Active Problems: Current Active and Chronic Problems (Last Reviewed 04/20/20 @ 17:[address] Татьяна Gamble, DO) Alcoholic hepatitis with ascites (Acute) Anemia, unspecified (Acute) Jaundice (Acute) Gross hematuria (Acute) Hypoalbuminemia (Chronic) Lactic acidosis (Acute) Hypertension (Chronic) Hyperlipidemia (Chronic) Urinary tract infection (Acute) Hypokalemia (Acute) Alcohol withdrawal (Acute) Severe sepsis (Acute) due to PNA and UTI Alcoholic hepatitis (Acute) Bipolar disorder (Chronic) Tobacco dependence (Chronic) EtOH dependence (Chronic) You will use the following diet at home:: Cardiac - 2 g sodium diet Your food should be the consistency of: Regular Your liquids should be the consistency of: Regular/Thin Discharge Activity: May Not Drive Weight Bearing Status: Weight bearing as tolerated Call your doctor if you observe: Fever of 101 or Higher, Numbness or Tingling, Inability to urinate, Inability to have a bowel movement, Shortness of breath, Dizziness, Fainting spells, Swelling in the ankles, Chest pain, Prolonged hiccoughing, Increased palpitations (irregular heartbeat), Calf discomfort, Uncontrolled pain Additional Instructions: Follow-up with a special investigator in [facility] or [facility] in 2 weeks Allergies/Adverse Reactions: Allergies lisinopril Allergy (Verified 12/07/20 09:55) Angioedema peanut Allergy (Verified 12/07/20 09:55) Hives Medications to take at Discharge Atorvastatin Calcium [Lipitor] 40 mg PO DAILY 03/26/20 Multivitamin 1 tab PO DAILY #90 tab 04/27/20 Citalopram [Celexa] 20 mg PO DAILY 12/07/20 Ergocalciferol (Vitamin D2) [Vitamin D2] 50,000 unit PO MO 12/07/20 Levetiracetam [Keppra] 500 mg PO BID 12/07/20 Quetiapine Fumarate 200 mg PO QHS 12/07/20 Cetirizine HCl [Zyrtec] 10 mg PO DAILY PRN PRN #0 12/14/20 Folic Acid 1 mg PO DAILY@0800 #30 tab 12/14/20 Furosemide [Lasix] 40 mg PO DAILY #30 tab 12/14/20 Lactulose [Chronulac] 20 gm PO BID #1 bottle 12/14/20 Magnesium Oxide [Magnesium] 400 mg PO DAILY #30 tab 12/14/20 Metoprolol Succinate [Toprol Xl] 50 mg PO DAILY #0 12/14/20 Mirtazapine 22.5 mg PO QHS #0 12/14/20 Pantoprazole Sodium [Protonix] 40 mg PO BID #60 tab 12/14/20 Spironolactone [Aldactone] 25 mg PO BID #60 tab 12/14/20 Thiamine Hydrochloride [Vitamin B1] 100 mg PO DAILY #30 tab 12/14/20 The following prescriptions were given: Spironolactone [Aldactone] 25 mg PO BID #60 tab Transmission Status: Pending to [facility] Lactulose [Chronulac] 20 gm PO BID #1 bottle Transmission Status: Pending to [facility] Folic Acid 1 mg PO DAILY@0800 #30 tab Transmission Status: Pending to [facility] Furosemide [Lasix] 40 mg PO DAILY #30 tab Transmission Status: Pending to [facility] Magnesium Oxide [Magnesium] 400 mg PO DAILY #30 tab Transmission Status: Pending to [facility] Pantoprazole Sodium [Protonix] 40 mg PO BID #60 tab Transmission Status: Pending to [facility] Thiamine Hydrochloride [Vitamin B1] 100 mg PO DAILY #30 tab Transmission Status: Pending to [facility] Primary Care Physician: Thania Herrmann MD [NON-STAFF] - Test Results: Test results from this visit will be discussed in further detail at your follow- up appointment, if applicable. Please Follow Up With: PCP at [facility] When: Thursday
--- NOTE | 2020-12-14 11:41 | PCM.DC.SUM ---
Discharge Date and Diagnosis - Problem List Patient Problems: Active and Suspected Problems (Last Reviewed 04/20/20 @ 17:[address] Татьяна Gamble DO) Alcoholic hepatitis with ascites (Acute) Anemia, unspecified (Acute) Jaundice (Acute) Gross hematuria (Acute) Lactic acidosis (Acute) Urinary tract infection (Acute) Hypokalemia (Acute) Alcohol withdrawal (Acute) Severe sepsis (Acute) due to PNA and UTI Alcoholic hepatitis (Acute) Seizure (Suspected) Date of Admission: 12/07/20 Date of Discharge: 12/14/20 - Primary Discharge Diagnosis Acute Problems: Active Problems (Last Reviewed 04/20/20 @ 17:[address] Татьяна Gamble DO) Alcoholic hepatitis with ascites (Acute) Anemia, unspecified (Acute) Jaundice (Acute) Gross hematuria (Acute) Lactic acidosis (Acute) Urinary tract infection (Acute) Hypokalemia (Acute) Alcohol withdrawal (Acute) Severe sepsis (Acute) due to PNA and UTI Alcoholic hepatitis (Acute) Suspected Problems: Suspected Problems (Last Reviewed 04/20/20 @ 17:[address] Татьяна Gamble DO) Seizure (Suspected) - Secondary Discharge Diagnosis Chronic Problems: Chronic Problems (Last Reviewed 04/20/20 @ 17:[address] Татьяна Gamble DO) Hypoalbuminemia (Chronic) Hypertension (Chronic) Hyperlipidemia (Chronic) Bipolar disorder (Chronic) Tobacco dependence (Chronic) EtOH dependence (Chronic) Hospital Course and Treatment Operations: None Summary of Care Provided: The patient is a 60-year-old male with past medical history of chronic alcohol use and disorder was admitted with dark tarry stool, dark urine and elevated transaminases. Heavy alcohol use who comes in with dark tarry stools and dark urine 1. Acute alcoholic hepatitis with chronic alcohol use and dependence: Patient had elevated transaminases, AST: 93, ALT 262, total bilirubin 1.4, direct 9.29 at time of admission along with lactic acidosis 2.4. Patient discretion factor was high, 40, meld sodium score 21 which has 7 to 10% of estimated 90-day mortality. Patient was started on prednisone 40 mg daily after stool for occult blood negative. On PPI. CT of the abdomen showed diffuse fatty infiltration of liver. Right upper quadrant sonogram shows hepatomegaly, GB wall thickening and sludge in GB lumen. Acute viral hepatitis panel is pending. Patient on lactulose and prednisone. Liver test was performed. It showed serial decreasing ALT and AST until yesterday and slight elevation of ALT and AST, ALT 280, AST 646 after prednisone discontinued. Based on seventh day liver chemistry on 12/13/2020, Lille score calculated. It is 0.593 which falls in the category of nonresponder of prednisone for alcoholic hepatitis and does not qualify for full 4 weeks of treatment. Therefore prednisone was discontinued. 2. Severe hypokalemia/hypomagnesemia, last potassium was 3.9 and patient discharged on Lasix and spironolactone. 3. Probable Acute on chronic GI bleed, patient reports history of melena, anemia of chronic disease with secondary iron overload. No obvious hematemesis or melena during hospital course. FOBT has been negative, PPI changed to oral. Discussed with surgeon Dr. Delgado and she agreed for outpatient EGD. Patient had 1 unit of PRBC transfusion. Patient hemoglobin remained stable between 8 to 9 g%. Did not require further transfusion. 4. UTI ruled out. Urine culture shows no growth, IV ceftriaxone discontinued UTI ruled out. 5. Acute alcohol withdrawal, in a patient with chronic heavy alcohol use, admitted with alcohol level of 130 Patient was on Ativan withdrawal protocol 6. Seizure disorder, continue on Keppra 7. Hypertension, uncontrolled likely secondary to alcohol withdrawal Continue on metoprolol, hydralazine as needed 8. Bipolar disorder/anxiety, continue on Celexa, Seroquel, Remeron 9. Bilateral leg edema likely related to acute liver failure, acute DVT ruled out from negative dopplers. 10. DVT PPx- SCDs 11. Debility related to the above, patient is currently a 2-person assist PT/OT to evaluate and treat. Discussed with the case hardener. Patient agreed for rehab. Dalila gave outpatient alcohol rehab resources for alcohol dependence. Discharge medication reconciliation done. Discharge follow-up instructions completed. Discharge process discussed with the patient and all questions were answered to patient's satisfaction. Scripts were sent to [facility] retail pharmacy. Total time spent, exact 35 minutes on discharge meds reconciliation, examination, coordination of care with nurses and ancillary staff, review of imaging and blood test and discussion with the patient on follow-up instructions Patient Problems: Active and Suspected Problems (Last Reviewed 04/20/20 @ 17:[address] Татьяна Gamble, DO) Alcoholic hepatitis with ascites (Acute) Anemia, unspecified (Acute) Jaundice (Acute) Gross hematuria (Acute) Lactic acidosis (Acute) Urinary tract infection (Acute) Hypokalemia (Acute) Alcohol withdrawal (Acute) Severe sepsis (Acute) due to PNA and UTI Alcoholic hepatitis (Acute) Seizure (Suspected) Objective: Patient is oriented, talking coherent and understands. Patient changed his mind and wants to go home. Patient care team including myself discussed with the patient but he refused SNF although it was approved by insurance. Patient still has difficulty in walking and standing up but to go home. Patient has full understanding to make decision Physical exam General: Alert, Oriented x3, Cooperative HEENT: Deep icterus, atraumatic, PERRLA, EOMI, Normocephalic Oral: No Gingival or Mucosal Lesions/ Ulcerations Neck: Supple, No JVD, Negative Carotid Bruits Lungs: Air entry diminished in bilateral lung bases. Mild expiratory rhonchi Cardiovascular: Regular rate, Regular Rhythm, Normal S1, Normal S2, No murmurs Abdomen: Bowel Sounds Present, Soft, Non Tender, Non-Distended. No ascites. Mild hepatomegaly but nontender. : No renal angle tenderness. No suprapubic tenderness. Extremities: No edema, Capillary Refill Less than 3 Seconds Skin: No rashes, No breakdown Musculoskeletal: Mild muscle atrophy of extremities and loss of subcutaneous fat. No Tenderness to Palpation of Joints or Extremities Neurological: Cranial nerves II-XII grossly intact, nonfocal exam. Psych/Mental Status: Flat affect, easily irritable - Physical Exam Vitals/I&O's: Vital Signs Temp Pulse Resp BP Pulse Ox 98.5 F 75 18 158/88 H 95 12/14/20 07:12 12/14/20 08:33 12/14/20 08:33 12/14/20 07:12 12/14/20 08:33 Oxygen Flow Rate (L/min) 2 Oxygen Delivery Method Room Air Weight: 180 lb 12.465 oz Body Mass Index (BMI) 27.8 Finger Stick Blood Glucose 125 Intake and Output for Last 24 Hours 12/12/20 12/13/20 12/14/20 23:59 23:59 23:59 Intake Total 1599 50 / 50 Output Total 2274 150 / 150 Balance 1599 -240 / -240 -100 / -100 Microbiology Past 72 Hours 12/13/20 07:20 Mucosa - Nose SARS-CoV-2 Antigen (Rapid) - Final 12/07/20 11:17 Blood Culture (Wb) - Right Hand Blood Culture - Final No growth in 5 days. Laboratory Results 12/14/20 05:05: WBC 10.8, RBC 2.30 L, Hgb 8.5 L, Hct 28.1 L, MCV 122.2 H, MCH 37.0 H, MCHC 30.2 L, RDW Std Deviation Not Reportable, RDW Coeff of William Not Reportable, Plt Count 248, MPV 9.4, Immature Gran % (Auto) 1.000 H, Neut % (Auto) 67.6, Lymph % (Auto) 22.9, Burnet % (Auto) 8.0, Eos % (Auto) 0.4, Baso % (Auto) 0.1, Absolute Neuts (auto) 7.3, Absolute Lymphs (auto) 2.47, Nucleated RBC % 0, Differential Comment SCANNED, Microcytosis 2+, Macrocytosis 3+ 12/14/20 05:05: Sodium 138, Potassium 3.9, Chloride 100, Carbon Dioxide 33.0 H, Anion Gap 5, BUN 14, Creatinine 0.61 L, Estim Creat Clear Calc 133.73, Est GFR (MDRD) Af Amer 173, Est GFR (MDRD) Non-Af 143, BUN/Creatinine Ratio 23.1 H, Glucose 103, Calcium 8.4 L, Magnesium 1.4 L, Total Bilirubin 4.30 H, AST 646 H, ALT 280 H, Alkaline Phosphatase 289 H, Total Protein 5.9 L, Albumin 1.7 L, Globulin 4.2, Albumin/Globulin Ratio 0.4 L 12/14/20 05:05: Phosphorus 3.2 Current Medications Albuterol Sulfate (Albuterol 2.5 Mg/3 Ml Vial.Neb.) 2.5 mg INHALATION Q2H PRN PRN PRN Reason: SOB/Wheezing Atorvastatin Calcium (Atorvastatin Calcium 40 Mg Tablet) 40 mg PO DAILY@2200 [facility] Last Admin: 12/13/20 21:42 Dose: 40 mg Documented by: Citalopram Hydrobromide (Citalopram 20 Mg Tablet) 20 mg PO DAILY [facility] Last Admin: 12/14/20 08:27 Dose: 20 mg Documented by: Dicyclomine HCl (Dicyclomine 10 Mg Capsule) 20 mg PO Q6H PRN PRN PRN Reason: abdominal discomfort Last Admin: 12/12/20 02:48 Dose: 20 mg Documented by: Folic Acid (Folic Acid 1 Mg Tablet) 1 mg PO DAILY@0800 [facility] Last Admin: 12/14/20 08:26 Dose: 1 mg Documented by: Furosemide (Furosemide 40 Mg/4 Ml Vial) 40 mg IV DAILY [facility] Last Admin: 12/14/20 08:30 Dose: 40 mg Documented by: Hydralazine HCl (Hydralazine 20 Mg/Ml Vial) 5 mg IV Q4H PRN PRN PRN Reason: BLOOD PRESSURE Ceftriaxone Sodium (Rocephin) 1 gm in 50 mls @ 100 mls/hr IV Q24 [facility] Last Infusion: 12/14/20 10:03 Dose: Infused Documented by: Lactulose (Lactulose 20 Gm/30 Ml Udc) 20 gm PO BID [facility] Last Admin: 12/14/20 08:28 Dose: 20 gm Documented by: Levetiracetam (Levetiracetam 500 Mg Tablet) 500 mg PO BID [facility] Last Admin: 12/14/20 08:28 Dose: 500 mg Documented by: Loperamide HCl (Loperamide 2 Mg Capsule) 2 mg PO Q4H PRN PRN PRN Reason: LOOSE STOOLS Magnesium Chloride (Magnesium Chloride 64 Mg Delay Rel.Tablet) 128 mg PO DAILY [facility] Last Admin: 12/14/20 08:31 Dose: 128 mg Documented by: Metoprolol Succinate (Metoprolol(Xl)Succ 50 Mg Tablet) 50 mg PO DAILY [facility] Last Admin: 12/14/20 08:28 Dose: 50 mg Documented by: Mirtazapine (Mirtazapine 15 Mg Tablet) 45 mg PO QHS [facility] Last Admin: 12/13/20 21:43 Dose: 45 mg Documented by: Multivitamins (Multivitamins,Therapeutic Tablet) 1 tablet PO DAILY@0800 [facility] Last Admin: 12/14/20 08:28 Dose: 1 tablet Documented by: Pantoprazole Sodium (Pantoprazole Sodium 40 Mg Tablet) 40 mg PO BID [facility] Last Admin: 12/14/20 08:27 Dose: 40 mg Documented by: Pramipexole Dihydrochloride (Pramipexole Di-Hcl 0.125 Mg Tablet) 0.125 mg PO TID [facility] Last Admin: 12/14/20 05:25 Dose: 0.125 mg Documented by: Quetiapine Fumarate (Quetiapine 100 Mg Tablet) 200 mg PO QHS [facility] Last Admin: 12/13/20 21:43 Dose: 200 mg Documented by: Senna/Docusate Sodium (Senna/Docusate Sodium 1 Tablet) 2 tablet PO BID PRN PRN PRN Reason: Constipation Sodium Chloride (0.9% Saline Lock 10 Ml Syringe) 10 - 40 ml IV UD PRN PRN Reason: SALINE FLUSH Last Admin: 12/14/20 08:29 Dose: 10 ml Documented by: Spironolactone (Spironolactone 25 Mg Tablet) 25 mg PO BID [facility] Last Admin: 12/14/20 08:28 Dose: 25 mg Documented by: Thiamine HCl (Thiamine Hydrochloride 100 Mg Tablet) 100 mg PO BIDCM [facility] Last Admin: 12/14/20 08:32 Dose: 100 mg Documented by: Discharge Activity: May Not Drive Weight Bearing Status: Weight bearing as tolerated Call your doctor if you observe: Fever of 101 or Higher, Numbness or Tingling, Inability to urinate, Inability to have a bowel movement, Shortness of breath, Dizziness, Fainting spells, Swelling in the ankles, Chest pain, Prolonged hiccoughing, Increased palpitations (irregular heartbeat), Calf discomfort, Uncontrolled pain Home Medications: Medications to take at Discharge Atorvastatin Calcium [Lipitor] 40 mg PO DAILY 03/26/20 Multivitamin 1 tab PO DAILY #90 tab 04/27/20 Citalopram [Celexa] 20 mg PO DAILY 12/07/20 Ergocalciferol (Vitamin D2) [Vitamin D2] 50,000 unit PO MO 12/07/20 Levetiracetam [Keppra] 500 mg PO BID 12/07/20 Quetiapine Fumarate 200 mg PO QHS 12/07/20 Cetirizine HCl [Zyrtec] 10 mg PO DAILY PRN PRN #0 12/14/20 Folic Acid 1 mg PO DAILY@0800 #30 tab 12/14/20 Furosemide [Lasix] 40 mg PO DAILY #30 tab 12/14/20 Lactulose [Chronulac] 20 gm PO BID #1 bottle 12/14/20 Magnesium Oxide [Magnesium] 400 mg PO DAILY #30 tab 12/14/20 Metoprolol Succinate [Toprol Xl] 50 mg PO DAILY #0 12/14/20 Mirtazapine 22.5 mg PO QHS #0 12/14/20 Pantoprazole Sodium [Protonix] 40 mg PO BID #60 tab 12/14/20 Spironolactone [Aldactone] 25 mg PO BID #60 tab 12/14/20 Thiamine Hydrochloride [Vitamin B1] 100 mg PO DAILY #30 tab 12/14/20 Following Prescriptions Were Given to Patient: Spironolactone [Aldactone] 25 mg PO BID #60 tab Transmission Status: Received by [facility] Lactulose [Chronulac] 20 gm PO BID #1 bottle Transmission Status: Received by [facility] Folic Acid 1 mg PO DAILY@0800 #30 tab Transmission Status: Received by [facility] Furosemide [Lasix] 40 mg PO DAILY #30 tab Transmission Status: Received by [facility] Magnesium Oxide [Magnesium] 400 mg PO DAILY #30 tab Transmission Status: Received by [facility] Pantoprazole Sodium [Protonix] 40 mg PO BID #60 tab Transmission Status: Received by [facility] Thiamine Hydrochloride [Vitamin B1] 100 mg PO DAILY #30 tab Transmission Status: Received by [facility] Primary Care Physician: Thania Herrmann MD [NON-STAFF] - Please Follow Up With: PCP at [facility] When: Thursday Medical Necessity - Tobacco Use Smoking Status: Current every day smoker Tobacco Use: Pipe Meaningful Use Info Meaningful Use Diagnoses (Choose all that apply): None applicable Inpatient E&M: 11396 [facility]
--- NOTE | 2020-12-14 11:41 | CASEMGMT ---
Addendum entered by Poppy Reyes 12/14/20 13:17: Received TC from Aura at [facility] and unable to accept patient due to being unable to accept insurance. TC to [facility] and unable to accept due to being at capacity. Pt updated and he chose [facility] as next choice. TC to [facility] and referral faxed. Awaiting acceptance. Original Note: Patient was provided a list of [facility] providers including quality and resource use data and consistent with the patient?s preferred geographic region, medical needs, and insurance network. The patient?s preferred provider first choice was [facility], second choice [facility], third choice [facility]. TC to [facility], spoke with Richar. Referral to be taken through [facility]. [facility] declined referral due to pt not having [facility] insurance. TC to [facility] faxed referral. Awaiting confirmation of acceptance. TC to [facility] Aura awaiting call back.
[2020-12-14 11:43] VITALS: BP 124/79; PULSE 99; RESP 18; TEMP 36.8; O2SAT 97
--- NOTE | 2020-12-14 13:13 | PHA.DC.MC ---
Pharmacy Service has performed discharge medication reconciliation and counseling for this patient. Pharmacy attempted to evp general counsel patient. Upon entry into room, pt refused counseling. Medication packets left with patient. Patient was told to contact pharmacy with any questions he may have, patient verbalized understanding. Home Medications Atorvastatin Calcium [Lipitor] 40 mg PO DAILY 03/26/20 Multivitamin 1 tab PO DAILY #90 tab 04/27/20 Citalopram [Celexa] 20 mg PO DAILY 12/07/20 Ergocalciferol (Vitamin D2) [Vitamin D2] 50,000 unit PO MO 12/07/20 Levetiracetam [Keppra] 500 mg PO BID 12/07/20 Quetiapine Fumarate 200 mg PO QHS 12/07/20 Cetirizine HCl [Zyrtec] 10 mg PO DAILY PRN PRN #0 12/14/20 Folic Acid 1 mg PO DAILY@0800 #30 tab 12/14/20 Furosemide [Lasix] 40 mg PO DAILY #30 tab 12/14/20 Lactulose [Chronulac] 20 gm PO BID #1 bottle 12/14/20 Magnesium Oxide [Magnesium] 400 mg PO DAILY #30 tab 12/14/20 Metoprolol Succinate [Toprol Xl] 50 mg PO DAILY #0 12/14/20 Mirtazapine 22.5 mg PO QHS #0 12/14/20 Pantoprazole Sodium [Protonix] 40 mg PO BID #60 tab 12/14/20 Spironolactone [Aldactone] 25 mg PO BID #60 tab 12/14/20 Thiamine Hydrochloride [Vitamin B1] 100 mg PO DAILY #30 tab 12/14/20 The patient's discharge medication list was reviewed for discrepancies and discrepancies were resolved.
--- NOTE | 2020-12-14 14:45 | CASEMGMT ---
Addendum entered by Dee Harmon 12/14/20 16:14: RN SARAH called and spoke to Diana and updated regarding discharge plan and HHC setup with [facility]. RN SARAH provided [facility]'s number to Diana. Diana had no further concerns at this time. Addendum entered by Dee Harmon 12/14/20 16:08: RN SARAH received call back from [facility] and they are able to accept patient for SN/PT/OT/SW. [facility] updated that if unable to reach patient to call Diana Luong. CECE SMITH called [facility] to cncel referral for PT/OT/SW Addendum entered by Dee Harmon 12/14/20 15:37: RN CM received call back from [facility] and they are able to provided HHC for PT/OT and SW. After multiple agencies denying patient due to staffing for jail, CCN referral made for med management and HHC setup with [facility] for therapy and SW. RN SARAH updated patient and he is agreeable to discharge plan. RN CM called and updated Dianaluciano Luong. Original Note: RN SARAH received call from [facility] and they are unable to accept patient due to staffing. RN SARAH in update patient regarding difficulty finding HHC to accept and to discuss HHC options, patient states he has no preferences and is agreeable to any HHC agency that will accept him. RN CM sent referral to [facility] and awaiting call back. Referral also sent to [facility].
--- NOTE | 2020-12-18 13:06 | CASEMGMT ---
CECE DC PHONE CALL DC DATE: 12/14/2020 DC DISPOSITION: Home with [facility] DC DIAGNOSIS: Alcoholic hepatitis w/ascites LACE/STRATA: 08/21 F/U APPTS MADE PRIOR TO DC: yes Transition of care to [facility]. Call to Klarissa who verified patient was seen yesterday by nurse. Mariam DANIELLEN RN AC
== END 2020-12-14 15:55 | disposition home or self-care (01) | DRG 433 ==
LOC: ED 11:15 → ICU 17:18 → MS3 12-08 17:31
PROVIDERS: Admitting Provider Internal Medicine; Emergency Provider Emergency Medicine; Visit Provider Internal Medicine
DX: K70.11 Alcoholic hepatitis with ascites (principal); E87.2 Acidosis; K92.1 Melena; F10.239 Alcohol dependence with withdrawal, unspecified; K70.40 Alcoholic hepatic failure without coma; E83.42 Hypomagnesemia; E87.6 Hypokalemia; D63.8 Anemia in other chronic diseases classified elsewhere; Y90.6 Blood alcohol level of 120-199 mg/100 ml; G40.909 Epilepsy, unspecified, not intractable, without status epilepticus; I10 Essential (primary) hypertension; F31.9 Bipolar disorder, unspecified; F41.9 Anxiety disorder, unspecified; R60.0 Localized edema; R53.81 Other malaise; F17.200 Nicotine dependence, unspecified, uncomplicated; Z79.899 Other long term (current) drug therapy; Z66 Do not resuscitate
CPT/HCPCS: 36415; 51702; 71045; 71046; 74177; 76705; 80048; 80053; 80069; 80074; 80076; 80329; 81001; 82077; 82140; 82248; 82274; 82607; 82728; 82962; 82977; 83540; 83550; 83605; 83690; 83735; 84100; 85014; 85018; 85025; 85045; 85610; 85730; 86850; 86900; 86901; 86920; 87040; 87086; 87426; 93005; 93970; 97110; 97162; 97166; 97530; 97535; 97802; 99251; 99283; 99285; 99406; J7030; J7040; P9016; Q9967; A4216; G0463; G0480; J1940; J3490

== ENCOUNTER 2020-12-21 14:10 | Emergency (ER) | payer MEDICARE, SELFPAY ==
[2020-12-07 18:00] VITALS: BMI 27.8
[2020-12-21 14:11] VITALS: BP 137/73; PULSE 103; RESP 18; TEMP 36.6; O2SAT 94; BMI 30.1
[2020-12-21 14:15] VITALS: BP 137/73; PULSE 103; RESP 18; TEMP 36.6; O2SAT 94
--- NOTE | 2020-12-21 14:21 | ED.DCSUM_ITS ---
History of Present Illness Chief Complaint: Weakness Informant: Patient, Founder Onset: Weeks - several Context: Gradual Onset Timing: Continuous Quality: weak & swollen Location: BLE Current Severity: Moderate Maximum Severity: Moderate Worsened by: nothing Relieved by: Lasix improving swelling in legs some. Associated Symptoms: swelling BLE, no other sx. Narrative: Patient states he has had edema in his legs for years, he lives alone, it has been a little worse lately since he was admitted to the hospital due to sepsis from a urinary infection, he was in the ICU. Before he became sick with this, he was ambulatory without assistance and able to get around his house on his own. He has been home for about 1 week and has been unable to stand or walk on his own. He states it was like this in the hospital, he was not able to stand o r walk when he was discharged, and he still is not able to. He has aides and therapists that are coming to his home but he does not have a full-time aide, although he has a friend who is living with him and helping him. Today his friend was unable to get him up to get to the bedside commode. His health services director got involved and was unable to get an appointment with his doctor in a timely fashion, so they advised he come to the emergency department. Patient states that they are trying to get him a full-time aide, but that one is not available at this time. The patient states that he thinks his edema is improved now compared with when he was in the hospital and discharged home a week ago, but they are still too heavy to allow him to stand/ambulate without assistance. He states otherwise he is feeling great. He denies any fevers, chills, shortness of breath, nausea, vomiting, diarrhea, trouble urinating. He was urinating blood when he first had the infection that is resolved. He states he is eating and drinking well with good appetite. He is compliant with his 40 once daily Lasix. All the above history is per the patient. His health services director arrived shortly thereafter and corroborates this. Upon reviewing his recent chart/records, it appears that he actually did not have a urinary infection since all the cultures returned negative, but actually had acute alcoholic hepatitis and resultant hypoalbuminemia, which is likely the main cause of his third spacing. When I discussed this with him, he confirms that he continues to drink alcohol, the equivalent of approximately 4 tall cans of beer daily from what he is admitting to, and states he has no plans on discontinuing his alcohol use, and this is despite knowing full well after I explained to him, that his alcohol use is likely responsible for his edema and disability. In addition to this, he does not want to be admitted to the hospital, and even if he cannot stand or walk still wants to be discharged home after his visit today. Recent Illness/Hospitalization: Yes - Past Medical History (1) Alcoholic hepatitis with ascites Status: Chronic (2) Anemia, unspecified Status: Chronic (3) Hypertension Status: Chronic (4) Hyperlipidemia Status: Chronic (5) Bipolar disorder Status: Chronic Past Medical History - Allergies and Home Meds Allergies/Adverse Reactions: Allergies lisinopril Allergy (Verified 12/21/20 14:16) Angioedema peanut Allergy (Verified 12/21/20 14:16) Hives Primary Care Physician: Debra Littlejohn [Primary Care Provider] - Surgical History: - - Pins and plates in left forearm Lives: Alone Smoking Status: Current every day smoker - Family History Maternal Family History: Family History (Last Reviewed 04/20/20 @ 17:[address] Татьяна Gamble DO) Father Myocardial infarction Mother Stomach cancer Family History: Reports: Cancer - stomach Paternal Family History: Family History (Last Reviewed 04/20/20 @ 17:[address] Татьяна Gamble DO) Father Myocardial infarction Mother Stomach cancer Family History: Reports: Heart Disease Review of Systems General: Denies: Chills, Fever, Malaise, Sweats Eyes: Denies: Visual changes - bilaterally, Diplopia ENT: Denies: Bilateral ear pain, Rhinorrhea, Sore throat Cardiovascular: Denies: Chest pain, Palpitations Respiratory: Denies: Dyspnea, Cough, Dyspnea on exertion Gastrointestinal: Denies: Abdominal pain, Nausea, Vomiting, Diarrhea, Melena, Hematochezia Genitourinary: Denies: Dysuria, Hematuria, Frequency Musculoskeletal: Reports: Swelling. Denies: Myalgias, Neck pain, Back pain, Extremity Pain Skin: Reports: Rash - Erythematous, left forearm since last night, initially itchy now asymptomatic. Denies: Wounds Neurological: Denies: Headache, Weakness, Numbness Endocrine: Denies: Polyuria, Polydipsia Physical Exam Vital Signs/Narrative: Vital Signs Temp Pulse Resp BP Pulse Ox 12/21/20 14:15 97.9 F 103 H 18 137/73 H 94 12/21/20 14:11 97.9 F 103 H 18 137/73 H 94 Inital Vital Signs reviewed: Yes General: Well nourished, Well developed, No Acute Distress - Well-appearing, conversive in full sentences Head: Normocephalic, Atraumatic Eyes: Perrl, EOMI ENT: Moist mucous membranes, No rhinorrhea Neck: Supple, Nontender, No JVD Cardiovascular: Regular rate, Regular rhythm, No murmurs Respiratory: No distress, CTA bilaterally, Chest nontender Abdomen: Soft, Nontender, Normal bowel sounds, - - Protuberant abdomen, without abdominal wall edema, at baseline per patient Back: Nontender, Normal Inspection Extremities: Nontender, Edema - 3+ both lower extremities symmetric without signs of infection or tenderness, to mid thighs, - - Pulses in feet not palpable due to the amount of edema, cap refill is 2-3 seconds brisk bilaterally. 2+ bilateral symmetric radial pulses. Skin: Normal color, No Trauma, Rash - Small patch of erythematous maculopapular rash mid dorsal forearm near one of his tattoos, no tenderness, no lymphangitis Neurological: Alert, Oriented x3, Cranial nerves II-XII grossly intact, Normal Strength, Normal Sensation Psychological: Normal affect, Normal Mood Diagnostic/Tx/Re-eval - Medical Decision Making Work-up shows that his anemia is relatively stable with a hemoglobin of 9.0, liver enzymes are little higher consistent with his consistent alcohol consumption, and his hyperbilirubinemia is relatively stable. His electrolytes look pretty good. He still has significant hypoalbuminemia. Upon discussing these results with him, he continues to interrupt asking when he will be discharged. I asked him if he would be willing to wait for an albumin infusion of 25 g which would take 1.5 hours, he was already given Lasix 40 mg IV. He is willing to wait, and after further discussion about my recommendation that he stay in the hospital for evaluation for rehab, he adamantly refuses states he would be happy to sign out AGAINST MEDICAL ADVICE. The patient is alert and oriented, he does understand in my opinion the liver issues he is having and the fact that his continued desire to alcohol consumption will likely further damage his liver and worsen his problems such as leg edema/heaviness and continued problems getting around, and despite this, wants to leave. I do think the patient has the capacity to make this decision although it is not what I recommend. His health services director was present for part of these conversations as well and is in agreement with this assessment. ED Disposition - Plan for ED Patient: Disposition: Against Medical Advice Diagnosis: Alcoholic hepatitis, Hypoalbuminemia, Anemia, unspecified Instructions: ED Peripheral Edema, Bilateral, ED Cirrhosis, AMA Referrals: Debra Littlejohn [Primary Care Provider] - As soon as possible Additional Instructions: Double your Lasix by taking one tablet in the AM and one late in afternoon for the next 3-4 days.
[2020-12-21] MEDS: Furosemide 40 MG/4 ML Vial IV (14:33)
[2020-12-21 14:41] LABS: Absolute Lymphocyte Count 2.15 X10^3/uL (0.83-4.51); Absolute Neutrophil Count 4.5 X10^3/uL (2.0-7.7); Basophil# 0.07 X10^3/uL; Basophil% 0.9 % (0-1); Eosinophil# 0.14 X10^3/uL; Eosinophils% 1.8 % (0-5); Hematocrit 29.5 % (40-54); Lymphocyte # 2.15 X10^3/ul (4.0); Lymphocyte % 28.1 % (19-41); Mean Corp Hgb Conc 30.5 g/dL (32-36); Mean Corpuscular Hgb 37.3 pg (27.0-32.0); Mean Corpuscular Volume 122.4 fL (80-94); Mean Platelet Vol. 9.2 fl (6.2-12.0); Monocyte# 0.71 X10^3/uL; Monocyte% 9.3 % (0-10); NRBC Flagged by Analyzer 0 % (0-5); Neutrophil # 4.47 X10^3/uL (2.7-7.7); Neutrophil % 58.6 % (47-70); POSITIVE MORPHOLOGY YES; Platelet Count 239 K/mm3 (150-450); RBC Distribution Width SD 86.2 fl (35.1-43.9); Red Blood Count 2.41 M/mm3 (4.6-6.2); White Blood Count 7.6 K/mm3 (4.4-11.0)
[2020-12-21 14:57] LABS: ALB/GLOB Ratio 0.4 RATIO (0.9-2.4); AST(SGOT) 562 U/L (15-37); Alanine Aminotransfer ALT/SGPT 374 U/L (16-61); Albumin, Serum 1.8 g/dL (3.2-5.0); Alkaline Phosphatase 232 U/L (45-117); Anion Gap 5 (5-15); BUN 5 mg/dL (7-18); BUN/Creat Ratio 12.1 RATIO (10-20); Calcium,Total 7.8 mg/dL (8.5-10.1); Chloride 112 mmol/L (98-107); Creatinine, Serum 0.41 mg/dL (0.70-1.30); EST Glomerular Filtration Rate 223 mL/min (>60); Est Glom Filt Rate - Afr Amer 269 mL/min (>60); Estimated Creatinine Clearance 198.96 ml/min; Globulin 4.2 g/dL (2.2-4.2); Glucose 143 mg/dL (74-106); Potassium 4.2 mmol/L (3.5-5.1); Sodium Level 140 mmol/L (136-145)
[2020-12-21 14:58] LABS: Differential Indicated SCAN CRITERIA MET
[2020-12-21 15:12] LABS: Bacteria 0 SEEN /hpf (None Seen); Mucous, Urine 0 SEEN /hpf (<or=2+); Red Blood Cells-Urine 0 SEEN /hpf (0-5); Squamous Epithelial Cells - UA 0 SEEN /hpf (0-5); White Blood Cells 0 SEEN /hpf (0-5)
[2020-12-21 15:12] LABS: Anisocytosis 1+; Macrocytosis 1+
[2020-12-21 15:13] LABS: Differential Comment SCANNED
[2020-12-21 15:15] VITALS: BP 139/69; PULSE 97; RESP 17; TEMP 36.6; O2SAT 98
[2020-12-21 15:17] LABS: Color, Urine Yellow (Yellow); Glucose, Dipstick Normal (Normal); Ketone-Dipstick Negative (Negative); Leukocyte Esterase-Dipstick 25 /ul (Negative); Nitrite-Dipstick Negative (Negative); Occult Blood-Urine Negative /ul (Negative); Protein-Dipstick 15 mg/dl (Negative); Urine Bilirubin Dipstick Negative (Negative); Urine Clarity Clear (Clear); Urine Urobilinogen Normal (Normal)
[2020-12-21] MEDS: Albumin Human 25% (100 mL) 25 GM/100 ML BAG IV (15:55)
[2020-12-21 17:37] VITALS: BP 111/64; PULSE 95; RESP 18; O2SAT 97
[2020-12-21 18:44] VITALS: BP 112/79; PULSE 89; RESP 17; O2SAT 98
== END 2020-12-21 18:44 | disposition left against medical advice (07) ==
PROVIDERS: Emergency Provider Emergency Medicine
DX: K70.10 Alcoholic hepatitis without ascites (principal); E88.09 Other disorders of plasma-protein metabolism, not elsewhere classified; D64.9 Anemia, unspecified; I10 Essential (primary) hypertension; E78.5 Hyperlipidemia, unspecified; F17.200 Nicotine dependence, unspecified, uncomplicated
CPT/HCPCS: 80053; 81001; 85025; 96365; 96366; 96375; 99284; P9047; A4216; J1940

== ENCOUNTER → 2021-01-25 14:55 | Outpatient (CLI) | payer MEDICARE, SELFPAY ==
--- NOTE | 2021-01-25 15:03 | RAD_ITS ---
INDICATION: DIARRHEA EXAMINATION/TECHNIQUE: X-RAY - XR Abdomen 1 View COMPARISON: None FINDINGS: BOWEL GAS PATTERN: Non-obstructive. No bowel or stomach distention. FREE AIR: Not assessed on a single supine view. ORGANOMEGALY: Not seen. CALCIFICATIONS: No abnormal calcifications observed. LOWER CHEST: No acute pathology. BONES AND SOFT TISSUES: No acute pathology. RAD/Abdomen Single View IMPRESSION: Non-obstructive bowel gas pattern. Electronically Signed: Sathish Jarvis MD at 16:34 EDT Tel , Service support ,
== END ==
PROVIDERS: Referring Provider Nurse Practitioner Adult Health; Visit Provider Nurse Practitioner Adult Health
DX: R19.7 Diarrhea, unspecified (principal)
CPT/HCPCS: 74018

== ENCOUNTER 2021-01-28 15:28 | Emergency (ER) | payer MEDICARE, MEDICAID, SELFPAY ==
[2021-01-28 15:30] VITALS: BP 110/68; PULSE 81; RESP 17; TEMP 36.3; O2SAT 100; BMI 24.8
[2021-01-28 16:32] LABS: Anion Gap 5 (5-15); BUN 2 mg/dL (7-18); BUN/Creat Ratio 4.5 RATIO (10-20); Calcium,Total 7.9 mg/dL (8.5-10.1); Chloride 103 mmol/L (98-107); Creatinine, Serum 0.45 mg/dL (0.70-1.30); EST Glomerular Filtration Rate 203 mL/min (>60); Est Glom Filt Rate - Afr Amer 245 mL/min (>60); Estimated Creatinine Clearance 181.28 ml/min; Glucose 140 mg/dL (74-106); Potassium 2.9 mmol/L (3.5-5.1); Sodium Level 137 mmol/L (136-145)
[2021-01-28 16:33] LABS: Absolute Lymphocyte Count 3.81 X10^3/uL (0.83-4.51); Absolute Neutrophil Count 4.1 X10^3/uL (2.0-7.7); Basophil# 0.09 X10^3/uL; Eosinophil# 0.11 X10^3/uL; Eosinophils% 1.2 % (0-5); Hematocrit 34.3 % (40-54); Hemoglobin 11.2 g/dL (13.0-16.5); Lymphocyte # 3.81 X10^3/ul (4.0); Lymphocyte % 42.1 % (19-41); Mean Corp Hgb Conc 32.7 g/dL (32-36); Mean Corpuscular Hgb 34.6 pg (27.0-32.0); Mean Corpuscular Volume 105.9 fL (80-94); Mean Platelet Vol. 10.1 fl (6.2-12.0); Monocyte# 0.86 X10^3/uL; Monocyte% 9.5 % (0-10); NRBC Flagged by Analyzer 0 % (0-5); Neutrophil # 4.12 X10^3/uL (2.7-7.7); Neutrophil % 45.6 % (47-70); POSITIVE MORPHOLOGY YES; Platelet Count 223 K/mm3 (150-450); RBC Distribution Width CV 18.5 % (11.6-14.6); RBC Distribution Width SD 72.7 fl (35.1-43.9); Red Blood Count 3.24 M/mm3 (4.6-6.2)
--- NOTE | 2021-01-28 16:33 | ED.DCSUM_ITS ---
History of Present Illness Chief Complaint: Diarrhea Informant: Patient Narrative: 60-year-old male presenting with diarrhea for the last 2-3 weeks. He states that it is brown. He describes it as mostly liquid. Patient states he was on antibiotics recently when he was hospitalized. He is also currently on Keflex but he does not know why. He states that he has bilateral lower extremity pain and some new swelling. He has a history of swelling in his legs. His visiting nurse has told him to watch his sodium but he continues to eat dill pickles, drink tomato juice, eat [employer] hamburgers and fries. He states that he has no appetite but was able to eat [employer] hamburgers last night. He did not take his antibiotics at all today. He denies any fever or chills. He states that he had follow-up with urology Dr. Cantrell and they did a urinalysis. They were called back recently and told they were going to order a CAT scan for him. Apparently has had some hematuria as well. He is not having any flank pain currently. He states he has decreased urination and only goes once a day. Patient does admit to drinking 1-2 beers a day. - Past Medical History (1) Alcoholic hepatitis Status: Chronic (2) Gross hematuria Status: Chronic (3) Hypokalemia Status: Chronic (4) Hyponatremia Status: Chronic (5) Jaundice Status: Chronic Past Medical History - Allergies and Home Meds Allergies/Adverse Reactions: Allergies lisinopril Allergy (Verified 01/28/21 15:30) Angioedema peanut Allergy (Verified 01/28/21 15:30) Niels Primary Care Physician: Debra Littlejohn [Primary Care Provider] - Prior records reviewed: Yes Past Medical History: - - Anemia, bipolar disorder Surgical History: noncontributory, - - Pins and plates in left forearm Lives: [place] Smoking Status: Current every day smoker - Family History Maternal Family History: Family History (Last Reviewed 04/20/20 @ 17:[address] Татьяна Gamble DO) Father Myocardial infarction Mother Stomach cancer Family History: Reports: Cancer - stomach Paternal Family History: Family History (Last Reviewed 04/20/20 @ 17:[address] Татьяна Gamble DO) Father Myocardial infarction Mother Stomach cancer Family History: Reports: Heart Disease Review of Systems General: Denies: Chills, Fever, Sweats Eyes: Denies: Visual changes - bilaterally, Diplopia ENT: Denies: Rhinorrhea, Sore throat Cardiovascular: Denies: Chest pain, Palpitations Respiratory: Denies: Dyspnea, Cough, Dyspnea on exertion Gastrointestinal: Reports: Abdominal pain, Nausea, Diarrhea. Denies: Melena, Hematochezia Genitourinary: Reports: Hematuria. Denies: Dysuria Musculoskeletal: Reports: Swelling - Lower extremity pain and swelling, Extremity Pain Skin: Reports: - - Mild erythema bilateral lower extremities. Neurological: Denies: Headache, Weakness, Numbness Psych: Denies: Depression, Anxiety, Suicidal thoughts, Suicidal ideations, -, - Physical Exam Vital Signs/Narrative: Vital Signs Temp Pulse Resp BP Pulse Ox 01/28/21 15:30 97.4 F L 81 17 110/68 100 Inital Vital Signs reviewed: Yes General: Obese, No Acute Distress Head: Normocephalic Eyes: Perrl, EOMI ENT: Moist mucous membranes, No rhinorrhea Neck: Supple, Nontender Cardiovascular: Regular rate, Regular rhythm, No murmurs Respiratory: No distress, CTA bilaterally, Chest nontender Abdomen: Soft, Tender - Neurolyse tenderness. Abdomen nonperitoneal. No guardi ng. Back: Nontender, Normal Inspection Extremities: No edema, Tenderness. Negative for: Calf Tenderness Skin: No rash, Cyanosis. Negative for: Diaphoresis Neurological: Alert, Oriented x3, Cranial nerves II-XII grossly intact Psychological: Normal affect, Normal Mood Diagnostic/Tx/Re-eval Laboratory Data 01/28/21 01/28/21 01/28/21 15:50 15:50 15:50 WBC 9.0 RBC 3.24 L Hgb 11.2 L Hct 34.3 L MCV 105.9 H MCH 34.6 H MCHC 32.7 RDW Std Deviation 72.7 H RDW Coeff of William 18.5 H Plt Count 223 MPV 10.1 Immature Gran % (Auto) 0.600 Neut % (Auto) 45.6 L Lymph % (Auto) 42.1 H [place] % (Auto) 9.5 Eos % (Auto) 1.2 Baso % (Auto) 1.0 Absolute Neuts (auto) 4.1 Absolute Lymphs (auto) 3.81 Nucleated RBC % 0 Platelet Estimate ADEQUATE RBC Morphology N CHROM Anisocytosis 1+ Sodium 137 Potassium 2.9 L Chloride 103 Carbon Dioxide 29.0 Anion Gap 5 BUN 2 L Creatinine 0.45 L Estim Creat Clear Calc 181.28 Est GFR (MDRD) Af Amer 245 Est GFR (MDRD) Non-Af 203 BUN/Creatinine Ratio 4.5 L Glucose 140 H Calcium 7.9 L Total Bilirubin 6.10 H Direct Bilirubin 5.30 H AST 393 H ALT 55 Alkaline Phosphatase 392 H Total Protein 7.9 Albumin 2.0 L Globulin 5.9 H Lipase 211 Urine Color Urine Clarity Urine pH Ur Specific [place] Urine Protein Urine Glucose (UA) Urine Ketones Urine Occult Blood Urine Nitrite Urine Bilirubin Urine Urobilinogen Ur Leukocyte Esterase Urine RBC Urine WBC Ur Squamous Epith Cells Urine Bacteria Urine Mucus 01/28/21 17:47 WBC RBC Hgb Hct MCV MCH MCHC RDW Std Deviation RDW Coeff of William Plt Count MPV Immature Gran % (Auto) Neut % (Auto) Lymph % (Auto) [place] % (Auto) Eos % (Auto) Baso % (Auto) Absolute Neuts (auto) Absolute Lymphs (auto) Nucleated RBC % Platelet Estimate RBC Morphology Anisocytosis Sodium Potassium Chloride Carbon Dioxide Anion Gap BUN Creatinine Estim Creat Clear Calc Est GFR (MDRD) Af Amer Est GFR (MDRD) Non-Af BUN/Creatinine Ratio Glucose Calcium Total Bilirubin Direct Bilirubin AST ALT Alkaline Phosphatase Total Protein Albumin Globulin Lipase Urine Color Yellow Urine Clarity Clear Urine pH 6.5 Ur Specific [place] 1.010 Urine Protein Negative Urine Glucose (UA) Normal Urine Ketones Negative Urine Occult Blood Negative Urine Nitrite Negative Urine Bilirubin 3 H Urine Urobilinogen 1 H Ur Leukocyte Esterase 25 H Urine RBC 0 SEEN Urine WBC 0 SEEN Ur Squamous Epith Cells 0 SEEN Urine Bacteria RARE Urine Mucus 1+ - Medical Decision Making Patient presenting with bilateral lower extremity pain. There is no significant swelling noted here. He states that his legs feel itchy and look red. He was sent into the ER because they thought he had cellulitis. Patient has no systemic signs or symptoms. Patient was started on Keflex for unknown reason. He is not have any chest pain or shortness of breath. Blood work shows white blood cell count 9.0, hemoglobin 11.2, platelets 223, potassium 2.9 which was replaced with 40 p.o. of potassium and patient was given a second dose for tomorrow. Creatinine is 0.45. T bili is 6.10, D bili 5.30, alk phos 392. It appears that his LFTs are always elevated and he has known liver disease. Urinalysis is negative for infection at this time but I will send it for culture. Patient is currently on Keflex which would cover him for cellulitis and UTI. He will continue these antibiotics at home. Patient stable for discharge at this time Impression: 1. Bilateral leg pain 2. Hypokalemia ED Disposition - Plan for ED Patient: Disposition: Home or Assisted Living Instructions: Hypokalemia, ED Diarrhea, Unknown Cause Prescriptions: Potassium Chloride 40 meq PO X1 #2 tab.er.prt Prescription Printed Referrals: Debra Littlejohn [Primary Care Provider] -
[2021-01-28] MEDS: Morphine 4 MG/ML Syringe IV (16:47)
[2021-01-28] MEDS: Ondansetron 4 MG/2 ML Vial IV (16:48)
[2021-01-28 16:54] LABS: Differential Indicated SCAN CRITERIA MET
[2021-01-28 17:10] LABS: AST(SGOT) 393 U/L (15-37); Alanine Aminotransfer ALT/SGPT 55 U/L (16-61); Alkaline Phosphatase 392 U/L (45-117); Globulin 5.9 g/dL (2.2-4.2); Lipase 211 U/L (73-393); Protein, Total 7.9 g/dL (6.4-8.2)
[2021-01-28 17:22] LABS: Anisocytosis 1+; Platelet Estimate ADEQUATE (ADEQ); Red Cell Morphology N CHROM NORMAL (NORM C&C)
[2021-01-28 17:54] LABS: Red Blood Cells-Urine 0 SEEN /hpf (0-5); Squamous Epithelial Cells - UA 0 SEEN /hpf (0-5); White Blood Cells 0 SEEN /hpf (0-5)
[2021-01-28 18:36] LABS: Color, Urine Yellow (Yellow); Glucose, Dipstick Normal (Normal); Ketone-Dipstick Negative (Negative); Leukocyte Esterase-Dipstick 25 /ul (Negative); Nitrite-Dipstick Negative (Negative); Occult Blood-Urine Negative /ul (Negative); Protein-Dipstick Negative (Negative); Urine Clarity Clear (Clear); Urine Urobilinogen 1 mg/dl (Normal); Urine pH 6.5 (5.0 - 8.0)
[2021-01-28 18:40] LABS: Urine Bilirubin Dipstick 3 mg/dL (Negative)
[2021-01-28 18:54] LABS: Bacteria RARE /hpf (None Seen); Mucous, Urine 1+ /hpf (<or=2+)
[2021-01-28 19:59] VITALS: BP 113/71; PULSE 74; RESP 17; O2SAT 96
[2021-01-28] MEDS: Potassium Chloride Oral Tablet 20 MEQ 40 MEQ PO (20:18)
[2021-01-28 21:33] VITALS: BP 135/77; PULSE 82; RESP 16; O2SAT 98
== END 2021-01-28 21:33 | disposition home or self-care (01) ==
PROVIDERS: Emergency Provider Student in an Organized Health Care Education/Training Program
DX: M79.604 Pain in right leg (principal); M79.605 Pain in left leg; E87.6 Hypokalemia; R31.9 Hematuria, unspecified; F17.200 Nicotine dependence, unspecified, uncomplicated; E66.9 Obesity, unspecified
CPT/HCPCS: 80048; 80076; 81001; 83690; 85025; 87086; 87177; 87209; 87493; 87506; 96374; 96375; 99284; A4216; J2405

== ENCOUNTER 2021-02-02 18:01 | Observation (INO) | payer MEDICARE, MEDICAID, SELFPAY ==
[2021-02-02] VITALS (8 sets, daily range): BP systolic 120–154; BP diastolic 69–86; PULSE 89–127; RESP 16–20; TEMP 36.6–36.9; O2SAT 95–99; BMI 27.6; BMI 24.1
--- NOTE | 2021-02-02 18:14 | EKG12_ITS ---
Test Reason : WEAKNESS Blood Pressure : / mmHG Vent. Rate : 103 BPM Atrial Rate : 103 BPM P-R Int : 170 ms QRS Dur : 086 ms QT Int : 370 ms P-R-T Axes : 024 -07 041 degrees QTc Int : 484 ms Sinus tachycardia Otherwise normal ECG Confirmed by VIBHA GARCIA, ANNE MARIE ([id number]), food editor FREDIS PULIDO ([id number]) on 02/05/2021 9:02:45 AM Referred By: YAHIR Confirmed By:ROSALIND DUNNE MD
[2021-02-02 18:24] LABS: Absolute Lymphocyte Count 3.63 X10^3/uL (0.83-4.51); Absolute Neutrophil Count 4.6 X10^3/uL (2.0-7.7); Basophil# 0.05 X10^3/uL; Basophil% 0.5 % (0-1); Eosinophil# 0.07 X10^3/uL; Eosinophils% 0.8 % (0-5); Hematocrit 30.1 % (40-54); Lymphocyte # 3.63 X10^3/ul (0.83-4.51); Lymphocyte % 39.6 % (19-41); Mean Corp Hgb Conc 33.2 g/dL (32-36); Mean Corpuscular Volume 105.2 fL (80-94); Mean Platelet Vol. 9.9 fl (6.2-12.0); Monocyte# 0.78 X10^3/uL; Monocyte% 8.5 % (0-10); NRBC Flagged by Analyzer 0 % (0-5); Neutrophil # 4.58 X10^3/uL (2.7-7.7); Neutrophil % 50.1 % (47-70); POSITIVE MORPHOLOGY YES; Platelet Count 167 K/mm3 (150-450); RBC Distribution Width CV 18.3 % (11.6-14.6); RBC Distribution Width SD 70.5 fl (35.1-43.9); Red Blood Count 2.86 M/mm3 (4.6-6.2); White Blood Count 9.2 K/mm3 (4.4-11.0)
[2021-02-02 18:27] LABS: Differential Indicated SCAN CRITERIA MET
[2021-02-02 18:33] LABS: International Normalized Ratio 1.3; Prothrombin Time (Protime)PT. 15.8 SECONDS (11.7-14.9)
[2021-02-02 18:39] LABS: ALB/GLOB Ratio 0.3 RATIO (0.9-2.4); AST(SGOT) 415 U/L (15-37); Alanine Aminotransfer ALT/SGPT 48 U/L (16-61); Albumin, Serum 1.7 g/dL (3.2-5.0); Alkaline Phosphatase 331 U/L (45-117); Anion Gap 8 (5-15); BUN 2 mg/dL (7-18); BUN/Creat Ratio 5.8 RATIO (10-20); Calcium,Total 7.2 mg/dL (8.5-10.1); Chloride 103 mmol/L (98-107); Creatinine, Serum 0.34 mg/dL (0.70-1.30); EST Glomerular Filtration Rate 276 mL/min (>60); Est Glom Filt Rate - Afr Amer 334 mL/min (>60); Estimated Creatinine Clearance 239.93 ml/min; Globulin 5.6 g/dL (2.2-4.2); Glucose 148 mg/dL (74-106); Lipase 217 U/L (73-393); Potassium 3.1 mmol/L (3.5-5.1); Protein, Total 7.3 g/dL (6.4-8.2); Sodium Level 135 mmol/L (136-145)
--- NOTE | 2021-02-02 18:40 | RAD_ITS ---
STUDY: X-RAY CHEST REASON FOR EXAM: Male, 60 years old. Dyspnea and rales at the bases TECHNIQUE: AP COMPARISON: 12/13/2020. FINDINGS: EKG leads project over the chest. The lungs are clear and expanded. There is no demonstrated pleural abnormality. Normal size heart. Normal mediastinum and krista. Normal visualized pulmonary arteries. Normal visualized aortic arch and descending thoracic aorta. Normal visualized thoracic spine. Normal visualized ribs, clavicles, and shoulders. There is no demonstrated abnormality of the visualized soft tissue structures of the upper abdomen. RAD/Chest 1 View (Portable) IMPRESSION: Nonacute portable x-ray examination of the chest. Electronically Signed: Logan Hopkins MD ([place]) at 18:52 EDT , Service support ,
[2021-02-02 18:53] LABS: Differential Comment SCANNED
[2021-02-02 18:54] LABS: Anisocytosis 1+; Red Cell Morphology N CHROM NORMAL (NORM C&C)
[2021-02-02 19:19] LABS: Lactic Acid 2.8 mmol/L (0.4-1.9)
--- NOTE | 2021-02-02 19:20 | ED.RN ---
notified of lactic of 2.8.
--- NOTE | 2021-02-02 19:30 | ED.VIS.GEN ---
History of Present Illness Chief Complaint: General Illness Informant: Patient Onset: - - Please read HPI since patient's has multiple symptoms with different onset dates Context: Sudden Onset Timing: - - Needs repeat HPI Quality: Please read HPI Location: As reviewed HPI Current Severity: Moderate Maximum Severity: Moderate Worsened by: Please read HPI Relieved by: Nothing Associated Symptoms: Per HPI Narrative: Patient is an elderly male with history of alcoholism who presents with numerous complaints. He apparently passed out 2 weeks ago and several days ago. He does report a mild headache as well. He states the headache was yesterday. The headache is resolved. He did not have any visual, ocular auditory symptoms associated with a headache. He denies paresthesia, anesthesia or motor weakness associated with the headache. He denies nausea or vomiting with headache. He denies ringing in his ears decreased hearing. He denies epistaxis, congestion, postnasal drainage or rhinorrhea. He denies sore throat. He does report mild dyspnea. He denies chest pain presently. He states he had chest pain this morning that lasted several hours. The chest pain is not related to exertion. The chest pain is not related to change in position or food. He denies intolerance to greasy or fried foods. He denies black or maroon-colored stool. He does endorse dark-colored urine. He was unaware that his skin is yellow and that his sclera are icteric. Patient denies any abdominal pain. He states he has never had a paracentesis. He does not complain of increased abdominal girth. He denies dysuria, urgency or hematuria. He denies testicular pain. He states he had problems with balance. He denies history of folate or B12 deficiency. Prior similar symptoms: Yes Recent Illness/Hospitalization: Yes - November of this year - Past Medical History (1) Alcoholic hepatitis Status: Chronic (2) Anemia, unspecified Status: Chronic (3) Bipolar disorder Status: Chronic (4) EtOH dependence Status: Chronic (5) Hyperlipidemia Status: Chronic (6) Hypertension Status: Chronic (7) Hypoalbuminemia Status: Chronic (8) Jaundice Status: Chronic (9) Seizure Status: Suspected Past Medical History - Allergies and Home Meds Allergies/Adverse Reactions: Allergies lisinopril Allergy (Verified 02/02/21 18:06) Angioedema peanut Allergy (Verified 02/02/21 18:06) Hives Primary Care Physician: Debra Littlejohn [Primary Care Provider] - Prior records reviewed: Yes Surgical History: noncontributory, - - Pins and plates in left forearm Lives: Alone Smoking Status: Former smoker Alcohol: Heavy Drugs: None - Family History Maternal Family History: Family History (Last Reviewed 04/20/20 @ 17:[address] Татьяна Gamble DO) Father Myocardial infarction Mother Stomach cancer Family History: Reports: Cancer - stomach Paternal Family History: Family History (Last Reviewed 04/20/20 @ 17:[address] Татьяна Gamble DO) Father Myocardial infarction Mother Stomach cancer Family History: Reports: Heart Disease Review of Systems General: Reports: Malaise, Weight loss. Denies: Chills, Fever, Subjective Eyes: Reports: Blurred Vision - bilaterally - Patient reported blurred vision several days ago.. Denies: Visual changes - bilaterally, Diplopia ENT: Reports: - - Denies epistaxis. And read HPI. Denies: Bilateral ear pain, Rhinorrhea, Sore throat Cardiovascular: Reports: Chest pain. Denies: Palpitations, Heart racing Respiratory: Reports: Cough. Denies: Dyspnea, Sputum, Dyspnea on exertion, Orthopnea, Paroxysmal nocturnal dyspnea Gastrointestinal: Reports: Nausea. Denies: Abdominal pain, Vomiting, Diarrhea, Constipation, Melena, Hematochezia Genitourinary: Reports: - - Colored urine. Denies: Dysuria, Hematuria, Frequency Musculoskeletal: Reports: Extremity Pain - Right and left leg and feet. Denies history of neuropathy and denies symptoms consistent with claudication. Denies: Myalgias, Arthralgias, Neck pain, Back pain, Swelling Skin: Denies: Rash, Wounds Neurological: Reports: Weakness. Denies: Headache Psych: Reports: Depression Endocrine: Denies: Polyuria, Polydipsia Hematologic: Denies: Easy bruising, Easy bleeding Allergy: Denies: Uticaria, Swelling of the mouth Physical Exam Vital Signs/Narrative: Vital Signs Temp Pulse Resp BP Pulse Ox 02/02/21 18:03 97.8 F 107 H 20 H 133/85 H 95 Inital Vital Signs reviewed: Yes General: Well developed, Unkempt, No Acute Distress Head: Normocephalic, Atraumatic Eyes: Perrl, EOMI, Pale conjunctiva, Scleral icterus ENT: No rhinorrhea, TM's clear. Negative for: Nasal congestion, Sinus tenderness Neck: Supple, Nontender, No lymphadenopathy, No JVD, - - He has midline. There is no inspiratory expiratory stridor. Cardiovascular: Regular rhythm, No murmurs, Normal S1, Normal S2, Tachycardia Respiratory: No distress, CTA bilaterally, Chest nontender Abdomen: Soft, Nontender, No masses, - - There is a fluid wave. There is central tympana.. Negative for: Nondistended, Normal bowel sounds, Hepatomegaly, Splenomegaly Back: Nontender, Normal Inspection. Negative for: CVA tenderness Extremities: Nontender, Edema - 2 mm pitting legs and feet Skin: No rash, Jaundice, No Trauma. Negative for: Cyanosis, Diaphoresis Neurological: Alert, Oriented x3, Cranial nerves II-XII grossly intact, Normal Strength, Normal Sensation, Normal DTR, - - Romberg test with eyes open and eyes closed is positive for dysmetria with eyes closed which with represent a proprioceptive deficit. This may be due to vitamin deficiency. Psychological: Depressed Diagnostic/Tx/Re-eval Chest X-Ray - ED: 1 View, Read by ED Physician, Normal, Heart, Mediastinum, Bony Structures, No Acute Disease, Chronic Changes, - - X-ray was interpreted by me at 1840 Impressions Chest X-Ray 02/02/21 18:40 IMPRESSION: Nonacute portable x-ray examination of the chest. Electronically Signed: Logan Hopkins MD ([place]) at 18:52 EDT , Service support , 02/02/21 18:40 Chest 1 View (Portable) [RAD] Stat Laboratory Results 02/02/21 02/02/21 02/02/21 18:10 18:10 18:10 WBC 9.2 RBC 2.86 L Hgb 10.0 L Hct 30.1 L MCV 105.2 H MCH 35.0 H MCHC 33.2 RDW Std Deviation 70.5 H RDW Coeff of William 18.3 H Plt Count 167 MPV 9.9 Immature Gran % (Auto) 0.500 Neut % (Auto) 50.1 Lymph % (Auto) 39.6 [place] % (Auto) 8.5 Eos % (Auto) 0.8 Baso % (Auto) 0.5 Absolute Neuts (auto) 4.6 Absolute Lymphs (auto) 3.63 Nucleated RBC % 0 Differential Comment SCANNED RBC Morphology N CHROM Anisocytosis 1+ PT 15.8 H INR 1.3 Sodium 135 L Potassium 3.1 L Chloride 103 Carbon Dioxide 24.0 Anion Gap 8 BUN 2 L Creatinine 0.34 L Estim Creat Clear Calc 239.93 Est GFR (MDRD) Af Amer 334 Est GFR (MDRD) Non-Af 276 BUN/Creatinine Ratio 5.8 L Glucose 148 H Lactic Acid Calcium 7.2 L Total Bilirubin 5.10 H AST 415 H ALT 48 Alkaline Phosphatase 331 H Troponin I Total Protein 7.3 Albumin 1.7 L Globulin 5.6 H Albumin/Globulin Ratio 0.3 L Lipase 217 Urine Color Urine Clarity Urine pH Ur Specific [place] Urine Protein Urine Glucose (UA) Urine Ketones Urine Occult Blood Urine Nitrite Urine Bilirubin Urine Urobilinogen Ur Leukocyte Esterase Urine RBC Urine WBC Ur Squamous Epith Cells Urine Bacteria Urine Mucus Ethyl Alcohol 02/02/21 02/02/21 02/02/21 18:10 18:40 19:35 WBC RBC Hgb Hct MCV MCH MCHC RDW Std Deviation RDW Coeff of [place] Plt Count MPV Immature Gran % (Auto) Neut % (Auto) Lymph % (Auto) [place] % (Auto) Eos % (Auto) Baso % (Auto) Absolute Neuts (auto) Absolute Lymphs (auto) Nucleated RBC % Differential Comment RBC Morphology Anisocytosis PT INR Sodium Potassium Chloride Carbon Dioxide Anion Gap BUN Creatinine Estim Creat Clear Calc Est GFR (MDRD) Af Amer Est GFR (MDRD) Non-Af BUN/Creatinine Ratio Glucose Lactic Acid 2.8 H* Calcium Total Bilirubin AST ALT Alkaline Phosphatase Troponin I < 0.015 Total Protein Albumin Globulin Albumin/Globulin Ratio Lipase Urine Color Yellow Urine Clarity Clear Urine pH 6.5 Ur Specific [place] 1.010 Urine Protein Negative Urine Glucose (UA) Normal Urine Ketones Negative Urine Occult Blood Negative Urine Nitrite Negative Urine Bilirubin 1 H Urine Urobilinogen 1 H Ur Leukocyte Esterase 25 H Urine RBC 0 SEEN Urine WBC 0 SEEN Ur Squamous Epith Cells 0-5 SEEN Urine Bacteria 0 SEEN Urine Mucus 0 SEEN Ethyl Alcohol 02/02/21 20:16 WBC RBC Hgb Hct MCV MCH MCHC RDW Std Deviation RDW Coeff of William Plt Count MPV Immature Gran % (Auto) Neut % (Auto) Lymph % (Auto) [place] % (Auto) Eos % (Auto) Baso % (Auto) Absolute Neuts (auto) Absolute Lymphs (auto) Nucleated RBC % Differential Comment RBC Morphology Anisocytosis PT INR Sodium Potassium Chloride Carbon Dioxide Anion Gap BUN Creatinine Estim Creat Clear Calc Est GFR (MDRD) Af Amer Est GFR (MDRD) Non-Af BUN/Creatinine Ratio Glucose Lactic Acid Calcium Total Bilirubin AST ALT Alkaline Phosphatase Troponin I Total Protein Albumin Globulin Albumin/Globulin Ratio Lipase Urine Color Urine Clarity Urine pH Ur Specific [place] Urine Protein Urine Glucose (UA) Urine Ketones Urine Occult Blood Urine Nitrite Urine Bilirubin Urine Urobilinogen Ur Leukocyte Esterase Urine RBC Urine WBC Ur Squamous Epith Cells Urine Bacteria Urine Mucus Ethyl Alcohol 316.0 H* - Medical Decision Making Patient with jaundice and history of liver failure/alcoholic hepatitis per review of old records even though patient denies. He also has history of ascites even though he denied. Work-up included conference metabolic panel to assess electrolytes, renal function and anion gap. Hepatic enzymes and lipase. Because of his reported dyspnea several days ago and chest discomfort chest x-ray and troponin were obtained. EKG was obtained to rule out acute ischemic changes. Clinically patient does not have spontaneous bacterial peritonitis. PT/INR was obtained to assess for acute liver failure. Calcium is low however his albumin is only 1.7. Calcium is normal once corrected for low albumin level. Patient does have a lactic acidosis. This may be due to several entities. He is anemic with an MCV of 105. This may be due to folate or B12 deficiency and may ask Splane his normal proprioceptive testing. - Critical Care Time Critical care time (excluding procedures): 30-74 minutes, Discussing w/Patient &/or Family/Head Holder, Discussing w/Consultants, Arranging Admission or Transfer ED Disposition - Plan for ED Patient: Disposition: Acute Care Hospital [facility] Diagnosis: Ascites due to alcoholic hepatitis, Jaundice, Macrocytic anemia, Hypoalbuminemia, Lymphedema, Lactic acidosis, Hypertension, Hypokalemia, Hyperglycemia, Syncope and collapse, Alcohol intoxication in alcoholism with blood level over 0.3 Referrals: Debra Littlejohn [Primary Care Provider] -
[2021-02-02 19:40] LABS: Bacteria 0 SEEN /hpf (None Seen); Mucous, Urine 0 SEEN /hpf (<or=2+); Red Blood Cells-Urine 0 SEEN /hpf (0-5); White Blood Cells 0 SEEN /hpf (0-5)
[2021-02-02 20:02] LABS: Color, Urine Yellow (Yellow); Glucose, Dipstick Normal (Normal); Ketone-Dipstick Negative (Negative); Leukocyte Esterase-Dipstick 25 /ul (Negative); Nitrite-Dipstick Negative (Negative); Occult Blood-Urine Negative /ul (Negative); Protein-Dipstick Negative (Negative); Urine Clarity Clear (Clear); Urine Urobilinogen 1 mg/dl (Normal); Urine pH 6.5 (5.0 - 8.0)
[2021-02-02 20:03] LABS: Urine Bilirubin Dipstick 1 mg/dL (Negative)
[2021-02-02 20:13] LABS: Squamous Epithelial Cells - UA 0-5 SEEN /hpf (0-5)
[2021-02-02 22:41] LABS: Reflex Lactate? Y
--- NOTE | 2021-02-02 22:42 | ED.RN ---
PT AGITATED, DEMANDING TO LEAVE. ADVISED PT HE WOULD NOT BE ABLE TO SIGN OUT AMA UNTIL ETOH LEVELS WITHIN LEGAL LIMITS. PT DIFFICULT TO REDIRECT, CURSING AT STAFF. 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 PT CURRENTLY RESTING IN BED, AGREEABLE TO ADMISSION AT THIS TIME.
--- NOTE | 2021-02-02 22:52 | HP.PCM_ITS ---
Problem List (1) Syncope and collapse Status: Acute (2) Alcoholic hepatitis with ascites Status: Chronic (3) Anemia, unspecified Status: Chronic Qualifiers: Anemia type: unspecified type Qualified Code(s): D64.9 - Anemia, unspecified (4) Jaundice Status: Chronic (5) Gross hematuria Status: Chronic (6) Hypoalbuminemia Status: Chronic (7) Lactic acidosis Status: Acute (8) Ascites due to alcoholic hepatitis Status: Chronic (9) Macrocytic anemia Status: Chronic (10) Lymphedema Status: Chronic (11) Hyperglycemia Status: Inactive (12) Syncope and collapse Status: Inactive (13) Alcohol intoxication in alcoholism with blood level over 0.3 Status: Acute (14) Hypertension Status: Chronic Qualifiers: Hypertension type: essential hypertension Qualified Code(s): I10 - Essential (primary) hypertension (15) Hyperlipidemia Status: Chronic Qualifiers: Hyperlipidemia type: unspecified Qualified Code(s): E78.5 - Hyperlipidemia, unspecified (16) Urinary tract infection Status: Acute Qualifiers: Urinary tract infection type: site unspecified (17) Hypokalemia Status: Chronic (18) Elevated CPK Status: Inactive (19) Alcohol withdrawal Status: Inactive Qualifiers: Complication of substance-induced condition: with delirium Qualified Code(s): F10.231 - Alcohol dependence with withdrawal delirium (20) Severe sepsis Status: Inactive Comment: due to PNA and UTI (21) Alcoholic hepatitis Status: Chronic Qualifiers: Ascites presence: with ascites Qualified Code(s): K70.11 - Alcoholic hepatitis with ascites (22) Bipolar disorder Status: Chronic (23) Tobacco dependence Status: Chronic (24) EtOH dependence Status: Chronic Qualifiers: Substance use status: unspecified alcohol-induced disorder Qualified Code(s): F10.29 - Alcohol dependence with unspecified alcohol-induced disorder (25) Hyponatremia Status: Chronic (26) Seizure Status: Inactive History of Present Illness Date of Admission: 02/02/21 Chief Complaint: syncope he patient is a 60 year old M with past medical history of chronic alcohol use disorder who presents emergency department with multiple complaints chief of which is syncope. Reportedly 3 days ago he blacked out and fell at his kitchen while holding his walker. Also he reports multiple episodes of this equilibrium. For that he reports diarrhea; lightheadedness; and fall appetite. He admits dark urine and yellow skin. At emergency department his alcohol level was 316. Initially he stated that he drinks 2 beers per day so he did not understand why his alcohol level was high. Later on he change his story and stated that he drinks 3 beers per day. Past Medical History Past Medical History (Chronic Problems): Chronic Problems (Last Reviewed 02/02/21 @ 23:[address] Clay Choi MD) Alcoholic hepatitis with ascites (Chronic) Anemia, unspecified (Chronic) Jaundice (Chronic) Gross hematuria (Chronic) Hypoalbuminemia (Chronic) Ascites due to alcoholic hepatitis (Chronic) Macrocytic anemia (Chronic) Lymphedema (Chronic) Hypertension (Chronic) Hyperlipidemia (Chronic) Hypokalemia (Chronic) Alcoholic hepatitis (Chronic) Bipolar disorder (Chronic) Tobacco dependence (Chronic) EtOH dependence (Chronic) Hyponatremia (Chronic) Medical History: Medical History (Last Reviewed 02/03/21 @ 06:[address] Clay Choi MD) Anxiety F41.9 Bipolar disorder F31.9 Seizure R56.9 Allergies lisinopril Allergy (Verified 02/02/21 18:06) Angioedema peanut Allergy (Verified 02/02/21 18:06) Hives Home Medications: Ambulatory Orders Medication Instructions Recorded Atorvastatin Calcium [Lipitor] 40 mg PO DAILY 03/26/20 Multivitamin 1 tab PO DAILY #90 tab 04/27/20 Citalopram [Celexa] 20 mg PO DAILY 12/07/20 Levetiracetam [Keppra] 500 mg PO BID 12/07/20 Quetiapine Fumarate 200 mg PO QHS 12/07/20 Cetirizine HCl [Zyrtec] 10 mg PO DAILY PRN PRN #0 12/14/20 Magnesium Oxide [Magnesium] 400 mg PO DAILY #30 tab 12/14/20 Metoprolol Succinate [Toprol Xl] 50 mg PO DAILY #0 12/14/20 Mirtazapine 22.5 mg PO QHS #0 12/14/20 Thiamine Hydrochloride [Vitamin B1] 100 mg PO DAILY #30 tab 12/14/20 Cephalexin [Keflex] 250 mg PO TID 01/28/21 Potassium Chloride 40 meq PO X1 #2 tab.er.prt 01/28/21 Surgical History: - - Pins and plates in left forearm Psychiatric History: Anxiety, Bipolar Lives: Alone Smoking Status: Former smoker Alcohol: Heavy Drugs: None - *Family History Maternal Family History: Family History (Last Reviewed 02/03/21 @ 06:[address] Clay Choi MD) Father Myocardial infarction Mother Stomach cancer History Items: Cancer - stomach Paternal Family History: Family History (Last Reviewed 02/03/21 @ 06:[address] Clay Choi MD) Father Myocardial infarction Mother Stomach cancer History Items: Heart Disease Review of Systems Constitutional: Denies: Chills, Fever, Weight Change HEENT: Denies: Head Aches, Sinus Congestion, Sinus Drainage Cardiovascular: Reports: Light Headedness. Denies: Chest Pain, Palpitations Respiratory: Denies: Cough, Shortness of breath at rest, Sputum production Gastrointestinal: Reports: Diarrhea. Denies: Abdominal Pain, Nausea, Vomiting Genitourinary: Denies: Dysuria Musculoskeletal: Denies: Joint Pain, Joint Tenderness Skin: Denies: Rash, Wounds Neurological: Denies: Numbness, Tingling, Focal weakness Psychiatric: Denies: Anxiety, Depression, Homicidal Ideations, Suicidal Ideations Hematologic/ Lymphatic: Denies: Easy Bruising, Easy Bleeding VTE Information - Inpt Only VTE Present on Admission: No VTE Mechan Device Prophylaxis: None VTE Pharm Prophylaxis ordered?: Yes Patient Problems: Active and Suspected Problems (Last Reviewed 02/02/21 @ 23:[address] Clay Choi MD) Lactic acidosis (Acute) Alcohol intoxication in alcoholism with blood level over 0.3 (Acute) Syncope and collapse (Acute) - Physical Exam Vitals/I&O's: Vital Signs Temp Pulse Resp BP Pulse Ox 97.8 F 92 18 154/69 H 99 02/02/21 18:03 02/02/21 21:10 02/02/21 21:10 02/02/21 21:10 02/02/21 21:10 Oxygen Delivery Method Room Air Weight: 90 kg Body Mass Index (BMI) 27.6 Finger Stick Blood Glucose 125 Intake and Output for Last 24 Hours 01/31/21 02/01/21 02/02/21 23:59 23:59 23:59 Intake Total 500 / 500 Balance 500 / 500 General: Alert, Oriented x3, Cooperative HEENT: Atraumatic, PERRLA, EOMI, Normocephalic, - - Scleral icterus Neck: Supple, No JVD, Negative Carotid Bruits Lungs: Clear to auscultation, Normal air movement Cardiovascular: Normal S1, Normal S2, No murmurs, Tachycardic Abdomen: Bowel Sounds Present, Soft, Non Tender Extremities: No edema, Capillary Refill Less than 3 Seconds Skin: - - Jaundice. Scratches on left leg that he attributes to falling Musculoskeletal: No Tenderness to Palpation of Joints or Extremities Neurological: Cranial nerves II-XII grossly intact Psych/Mental Status: Normal Affect, Appropriate Laboratory Results 02/02/21 18:10: WBC 9.2, RBC 2.86 L, Hgb 10.0 L, Hct 30.1 L, MCV 105.2 H, MCH 35.0 H, MCHC 33.2, RDW Std Deviation 70.5 H, RDW Coeff of William 18.3 H, Plt Count 167, MPV 9.9, Immature Gran % (Auto) 0.500, Neut % (Auto) 50.1, Lymph % (Auto) 39.6, [place] % (Auto) 8.5, Eos % (Auto) 0.8, Baso % (Auto) 0.5, Absolute Neuts (auto) 4.6, Absolute Lymphs (auto) 3.63, Nucleated RBC % 0, Differential Comment SCANNED, RBC Morphology N CHROM, Anisocytosis 1+ 02/02/21 18:10: PT 15.8 H, INR 1.3 02/02/21 18:10: Sodium 135 L, Potassium 3.1 L, Chloride 103, Carbon Dioxide 24.0, Anion Gap 8, BUN 2 L, Creatinine 0.34 L, Estim Creat Clear Calc 239.93, Est GFR (MDRD) Af Amer 334, Est GFR (MDRD) Non-Af 276, BUN/Creatinine Ratio 5.8 L, Glucose 148 H, Calcium 7.2 L, Total Bilirubin 5.10 H, AST 415 H, ALT 48, Alkaline Phosphatase 331 H, Total Protein 7.3, Albumin 1.7 L, Globulin 5.6 H, Albumin/Globulin Ratio 0.3 L, Lipase 217 02/02/21 18:10: Troponin I < 0.015 02/02/21 18:40: Lactic Acid 2.8 H* 02/02/21 19:35: Urine Color Yellow, Urine Clarity Clear, Urine pH 6.5, Ur Specific [place] 1.010, Urine Protein Negative, Urine Glucose (UA) Normal, Urine Ketones Negative, Urine Occult Blood Negative, Urine Nitrite Negative, Urine Bilirubin 1 H, Urine Urobilinogen 1 H, Ur Leukocyte Esterase 25 H, Urine RBC 0 SEEN, Urine WBC 0 SEEN, Ur Squamous Epith Cells 0-5 SEEN, Urine Bacteria 0 SEEN, Urine Mucus 0 SEEN 02/02/21 20:16: Ethyl Alcohol 316.0 H* Assessment/Plan All Active Problems (Last Reviewed 02/02/21 @ 23:[address] Clay Choi MD) Lactic acidosis (Acute) Alcohol intoxication in alcoholism with blood level over 0.3 (Acute) Syncope and collapse (Acute) Urinary tract infection (Acute) The patient is a 60 year old M with past medical history of chronic alcohol use disorder who presents emergency department with multiple complaints chief of which is syncope; also with disequilibrium. Syncope and disequilibrium Secondary to alcoholism Reports extensive work-up. Counseled Lactic acidosis Likely secondary poor clearance from liver. Trend. Alcoholic hepatitis Counseled to quit drinking. Alcohol dependence Placed on CIWA protocol with as needed Ativan; folic acid and multivitamin. Diarrhea As needed Imodium ordered. Tobacco abuse Counseled. Declined nicotine patch. DVT prophylaxis Subcutaneous Lovenox ordered. OBSV E&M: [id number] Initial observation care L3
[2021-02-02 23:44] LABS: Lactic Acid 3.2 mmol/L (0.4-1.9)
[2021-02-03] MEDS: Potassium Chloride Oral Tablet 20 MEQ 60 MEQ PO (00:27)
--- NOTE | 2021-02-03 01:54 | NURSING ---
We attempted to complete home meds for admission and states, I do not know what meds i take them or why. Patient reports telephonic nurse case manager Kait Luong has his list of medication will need to call in morning. Tyson Camarena Rn cell: [phone]
[2021-02-03 03:00] VITALS: PULSE 107
[2021-02-03 03:08] LABS: Absolute Lymphocyte Count 2.83 X10^3/uL (0.83-4.51); Absolute Neutrophil Count 4.3 X10^3/uL (2.0-7.7); Basophil# 0.05 X10^3/uL; Basophil% 0.6 % (0-1); Eosinophil# 0.09 X10^3/uL; Eosinophils% 1.1 % (0-5); Hematocrit 28.8 % (40-54); Hemoglobin 9.5 g/dL (13.0-16.5); Lymphocyte # 2.83 X10^3/ul (0.83-4.51); Lymphocyte % 35.1 % (19-41); Mean Corpuscular Hgb 34.8 pg (27.0-32.0); Mean Corpuscular Volume 105.5 fL (80-94); Mean Platelet Vol. 9.4 fl (6.2-12.0); Monocyte# 0.77 X10^3/uL; Monocyte% 9.5 % (0-10); NRBC Flagged by Analyzer 0 % (0-5); Neutrophil % 53.3 % (47-70); POSITIVE MORPHOLOGY YES; Platelet Count 150 K/mm3 (150-450); RBC Distribution Width CV 18.4 % (11.6-14.6); RBC Distribution Width SD 70.6 fl (35.1-43.9); Red Blood Count 2.73 M/mm3 (4.6-6.2); White Blood Count 8.1 K/mm3 (4.4-11.0)
[2021-02-03 03:25] LABS: Anion Gap 10 (5-15); BUN 1 mg/dL (7-18); BUN/Creat Ratio 4.5 RATIO (10-20); Calcium,Total 6.9 mg/dL (8.5-10.1); Chloride 107 mmol/L (98-107); Creatinine, Serum 0.22 mg/dL (0.70-1.30); EST Glomerular Filtration Rate 459 mL/min (>60); Est Glom Filt Rate - Afr Amer 555 mL/min (>60); Glucose 101 mg/dL (74-106); Magnesium 1.5 mg/dL (1.6-2.6); Potassium 3.2 mmol/L (3.5-5.1); Sodium Level 139 mmol/L (136-145)
[2021-02-03 03:28] LABS: Differential Indicated SCAN CRITERIA MET
[2021-02-03 03:34] LABS: Lactic Acid 2.5 mmol/L (0.4-1.9)
[2021-02-03 03:40] VITALS: BP 127/74; PULSE 109; RESP 16; TEMP 36.9; O2SAT 93
[2021-02-03 05:00] LABS: Anisocytosis 1+; Macrocytosis 1+; Microcytosis RARE
[2021-02-03 05:01] LABS: Differential Comment SCANNED
[2021-02-03 07:06] LABS: Reflex Lactate? Y
[2021-02-03 07:20] VITALS: O2SAT 93
[2021-02-03 07:45] VITALS: PULSE 107
--- NOTE | 2021-02-03 12:03 | PCM.DC.SUM ---
Discharge Date and Diagnosis - Problem List Patient Problems: Active and Suspected Problems (Last Reviewed 02/03/21 @ 06:[address] Clay Choi MD) Lactic acidosis (Acute) Alcohol intoxication in alcoholism with blood level over 0.3 (Acute) Syncope and collapse (Acute) Urinary tract infection (Acute) Date of Admission: 02/02/21 Date of Discharge: 02/03/21 - Primary Discharge Diagnosis Acute Problems: Active Problems (Last Reviewed 02/03/21 @ 06:[address] Clay Choi MD) Lactic acidosis (Acute) Alcohol intoxication in alcoholism with blood level over 0.3 (Acute) Syncope and collapse (Acute) Urinary tract infection (Acute) - Secondary Discharge Diagnosis Chronic Problems: Chronic Problems (Last Reviewed 02/03/21 @ 06:[address] Clay Choi MD) Alcoholic hepatitis with ascites (Chronic) Anemia, unspecified (Chronic) Jaundice (Chronic) Gross hematuria (Chronic) Hypoalbuminemia (Chronic) Ascites due to alcoholic hepatitis (Chronic) Macrocytic anemia (Chronic) Lymphedema (Chronic) Hypertension (Chronic) Hyperlipidemia (Chronic) Hypokalemia (Chronic) Alcoholic hepatitis (Chronic) Bipolar disorder (Chronic) Tobacco dependence (Chronic) EtOH dependence (Chronic) Hyponatremia (Chronic) Hospital Course and Treatment None Operations: None Procedures: None Summary of Care Provided: Mr. Mosqueda is a 60-year-old male who presented to the emergency department at [facility] on 02/02/2021. See H&P for details. Patient left AGAINST MEDICAL ADVICE prior to me evaluating him on 02/03/2021. Patient Problems: Active and Suspected Problems (Last Reviewed 02/03/21 @ 06:[address] Clay Choi MD) Lactic acidosis (Acute) Alcohol intoxication in alcoholism with blood level over 0.3 (Acute) Syncope and collapse (Acute) Urinary tract infection (Acute) - Physical Exam Vitals/I&O's: Vital Signs Temp Pulse Resp BP Pulse Ox 98.5 F 107 H 16 127/74 H 93 02/03/21 03:40 02/03/21 07:45 02/03/21 03:40 02/03/21 03:40 02/03/21 07:20 Oxygen Delivery Method Room Air Weight: 78.5 kg Body Mass Index (BMI) 24.1 Finger Stick Blood Glucose 125 Intake and Output for Last 24 Hours 02/01/21 02/02/21 02/03/21 23:59 23:59 23:59 Intake Total 620 / 620 Balance 620 / 620 Laboratory Results 02/02/21 00:27: Vitamin B12 Pending 02/02/21 18:10: WBC 9.2, RBC 2.86 L, Hgb 10.0 L, Hct 30.1 L, MCV 105.2 H, MCH 35.0 H, MCHC 33.2, RDW Std Deviation 70.5 H, RDW Coeff of William 18.3 H, Plt Count 167, MPV 9.9, Immature Gran % (Auto) 0.500, Neut % (Auto) 50.1, Lymph % (Auto) 39.6, [place] % (Auto) 8.5, Eos % (Auto) 0.8, Baso % (Auto) 0.5, Absolute Neuts (auto) 4.6, Absolute Lymphs (auto) 3.63, Nucleated RBC % 0, Differential Comment SCANNED, RBC Morphology N CHROM, Anisocytosis 1+ 02/02/21 18:10: PT 15.8 H, INR 1.3 02/02/21 18:10: Sodium 135 L, Potassium 3.1 L, Chloride 103, Carbon Dioxide 24.0, Anion Gap 8, BUN 2 L, Creatinine 0.34 L, Estim Creat Clear Calc 239.93, Est GFR (MDRD) Af Amer 334, Est GFR (MDRD) Non-Af 276, BUN/Creatinine Ratio 5.8 L, Glucose 148 H, Calcium 7.2 L, Total Bilirubin 5.10 H, AST 415 H, ALT 48, Alkaline Phosphatase 331 H, Total Protein 7.3, Albumin 1.7 L, Globulin 5.6 H, Albumin/Globulin Ratio 0.3 L, Lipase 217 02/02/21 18:10: Troponin I < 0.015 02/02/21 18:40: Lactic Acid 2.8 H* 02/02/21 19:35: Urine Color Yellow, Urine Clarity Clear, Urine pH 6.5, Ur Specific [place] 1.010, Urine Protein Negative, Urine Glucose (UA) Normal, Urine Ketones Negative, Urine Occult Blood Negative, Urine Nitrite Negative, Urine Bilirubin 1 H, Urine Urobilinogen 1 H, Ur Leukocyte Esterase 25 H, Urine RBC 0 SEEN, Urine WBC 0 SEEN, Ur Squamous Epith Cells 0-5 SEEN, Urine Bacteria 0 SEEN, Urine Mucus 0 SEEN 02/02/21 20:16: Ethyl Alcohol 316.0 H* 02/02/21 22:50: Lactic Acid 3.2 H* 02/03/21 02:55: WBC 8.1, RBC 2.73 L, Hgb 9.5 L, Hct 28.8 L, MCV 105.5 H, MCH 34.8 H, MCHC 33.0, RDW Std Deviation 70.6 H, RDW Coeff of William 18.4 H, Plt Count 150, MPV 9.4, Immature Gran % (Auto) 0.400, Neut % (Auto) 53.3, Lymph % (Auto) 35.1, [place] % (Auto) 9.5, Eos % (Auto) 1.1, Baso % (Auto) 0.6, Absolute Neuts (auto) 4.3, Absolute Lymphs (auto) 2.83, Nucleated RBC % 0, Differential Comment SCANNED, Anisocytosis 1+, Microcytosis RARE, Macrocytosis 1+ 02/03/21 02:55: Sodium 139, Potassium 3.2 L, Chloride 107, Carbon Dioxide 22.0, Anion Gap 10, BUN 1 L, Creatinine 0.22 L, Estim Creat Clear Calc 370.80, Est GFR (MDRD) Af Amer 555, Est GFR (MDRD) Non-Af 459, BUN/Creatinine Ratio 4.5 L, Glucose 101, Calcium 6.9 L, Magnesium 1.5 L 02/03/21 02:55: Lactic Acid 2.5 H* Home Medications: Medications to take at Discharge Atorvastatin Calcium [Lipitor] 40 mg PO DAILY 03/26/20 Multivitamin 1 tab PO DAILY #90 tab 04/27/20 Citalopram [Celexa] 20 mg PO DAILY 12/07/20 Levetiracetam [Keppra] 500 mg PO BID 12/07/20 Quetiapine Fumarate 200 mg PO QHS 12/07/20 Cetirizine HCl [Zyrtec] 10 mg PO DAILY PRN PRN #0 12/14/20 Magnesium Oxide [Magnesium] 400 mg PO DAILY #30 tab 12/14/20 Metoprolol Succinate [Toprol Xl] 50 mg PO DAILY #0 12/14/20 Mirtazapine 22.5 mg PO QHS #0 12/14/20 Thiamine Hydrochloride [Vitamin B1] 100 mg PO DAILY #30 tab 12/14/20 Cephalexin [Keflex] 250 mg PO TID 01/28/21 Potassium Chloride 40 meq PO X1 #2 tab.er.prt 01/28/21 Primary Care Physician: Debra Littlejohn [Primary Care Provider] - Medical Necessity - Tobacco Use Smoking Status: Current every day smoker Meaningful Use Info Meaningful Use Diagnoses (Choose all that apply): None applicable
[2021-02-04 08:52] LABS: Vitamin B12 1095 pg/mL (211-911)
== END 2021-02-03 08:50 | disposition left against medical advice (07) ==
LOC: ED 22:24 → PCU 22:53
PROVIDERS: Admitting Provider Hospitalist; Emergency Provider Emergency Medicine; Visit Provider Internal Medicine
DX: F10.229 Alcohol dependence with intoxication, unspecified (principal); Y90.8 Blood alcohol level of 240 mg/100 ml or more; K70.11 Alcoholic hepatitis with ascites; E78.5 Hyperlipidemia, unspecified; I10 Essential (primary) hypertension; E87.2 Acidosis; D53.9 Nutritional anemia, unspecified; E88.09 Other disorders of plasma-protein metabolism, not elsewhere classified; I89.0 Lymphedema, not elsewhere classified; E87.6 Hypokalemia; R73.9 Hyperglycemia, unspecified; F31.9 Bipolar disorder, unspecified; F41.9 Anxiety disorder, unspecified; Z87.891 Personal history of nicotine dependence; Z87.440 Personal history of urinary (tract) infections
CPT/HCPCS: 36415; 71045; 80048; 80053; 81001; 82077; 82607; 83605; 83690; 83735; 84484; 85025; 85610; 93005; 96360; 96361; 99218; 99285; J7030; A4216; G0378

== ENCOUNTER → 2021-02-07 12:58 | Outpatient (CLI) | payer MEDICARE, SELFPAY ==
[2021-02-02 23:44] VITALS: BMI 24.1
--- NOTE | 2021-02-07 13:00 | ART_ITS ---
Reason For Study: PVD Procedure A bilateral lower extremity continuous wave Doppler with analog waveform analysis,segmental pressures,and ankle brachial indexes without exercise. Left Segmental Pressures Left brachial= 153mmHg. Left posterior tibial artery = 180mmHg. Left dorsalis pedis artery = 173mmHg. The left dorsalis pedis waveforms are triphasic. The left posterior tibial artery waveforms are triphasic. Right Segmental Pressures Right brachial= 156mmHg. Right posterior tibial artery = 182mmHg. Right dorsalis pedis artery = 169mmHg. The right dorsalis pedis waveforms are triphasic. The right posterior tibial artery waveforms are triphasic. Indices The right ankle brachial index by the dorsalis pedis is 1.08. The right ankle brachial index by the posterior tibial artery is 1.17. The left ankle brachial index by the dorsalis pedis is 1.11. The left ankle brachial index by the posterior tibial artery is 1.15. VL/Lower Ext Art Exam w/o Exercis Interpretation Summary Triphasic Doppler waveforms are noted at ankle level bilaterally. Pulse-volume recordings appear satisfactory at all levels bilaterally, including low-thigh, calf, ankle, and d igital levels. Resting ankle-brachial indices are normal bilaterally. There is no evidence of significant arterial occlusive disease in the lower ext remities bilaterally. Ordering Physician: [facility] Debra Renner [facility] Performed By: Dee Bautista RVT and Student
== END ==
DX: I73.9 Peripheral vascular disease, unspecified (principal)
CPT/HCPCS: 93923

== ENCOUNTER → 2021-02-26 15:12 | Outpatient (CLI) | payer MEDICARE, SELFPAY ==
[2021-02-02 23:44] VITALS: BMI 24.1
--- NOTE | 2021-02-26 15:30 | RAD_ITS ---
STUDY: X-RAY - ABDOMEN/PELVIS REASON FOR EXAM: Male, 60 years old. Diarrhea, unspecified TECHNIQUE: Single AP view of the abdomen / pelvis. COMPARISON: Comparison is made with prior study dated 01/25/2021. FINDINGS: Normal visualized lung bases. There is an unremarkable bowel gas pattern. The visualized liver, spleen and kidneys are grossly normal in size and morphology. There are calcified phleboliths in the pelvis. Normal visualized osseous structures. RAD/Abdomen Single View IMPRESSION: Nonspecific bowel gas pattern. Electronically Signed: Emmanuel Craig MD at 15:24 EDT , Service support ,
[2021-02-26 15:57] LABS: Absolute Lymphocyte Count 2.04 X10^3/uL (0.83-4.51); Absolute Neutrophil Count 3.8 X10^3/uL (2.0-7.7); Basophil# 0.05 X10^3/uL; Basophil% 0.8 % (0-1); Eosinophil# 0.05 X10^3/uL; Eosinophils% 0.8 % (0-5); Hematocrit 30.6 % (40-54); Hemoglobin 10.3 g/dL (13.0-16.5); Lymphocyte # 2.04 X10^3/ul (0.83-4.51); Lymphocyte % 31.3 % (19-41); Mean Corp Hgb Conc 33.7 g/dL (32-36); Mean Corpuscular Hgb 36.5 pg (27.0-32.0); Mean Corpuscular Volume 108.5 fL (80-94); Monocyte# 0.56 X10^3/uL; Monocyte% 8.6 % (0-10); NRBC Flagged by Analyzer 0 % (0-5); Neutrophil # 3.79 X10^3/uL (2.7-7.7); Neutrophil % 58.2 % (47-70); POSITIVE MORPHOLOGY YES; Platelet Count 129 K/mm3 (150-450); RBC Distribution Width CV 16.6 % (11.6-14.6); RBC Distribution Width SD 65.6 fl (35.1-43.9); Red Blood Count 2.82 M/mm3 (4.6-6.2); White Blood Count 6.5 K/mm3 (4.4-11.0)
[2021-02-26 16:26] LABS: ALB/GLOB Ratio 0.3 RATIO (0.9-2.4); AST(SGOT) 298 U/L (15-37); Alanine Aminotransfer ALT/SGPT 34 U/L (16-61); Albumin, Serum 1.6 g/dL (3.2-5.0); Alkaline Phosphatase 254 U/L (45-117); Anion Gap 6 (5-15); BUN 2 mg/dL (7-18); Calcium,Total 7.6 mg/dL (8.5-10.1); Chloride 101 mmol/L (98-107); Creatinine, Serum 0.33 mg/dL (0.70-1.30); EST Glomerular Filtration Rate 285 mL/min (>60); Est Glom Filt Rate - Afr Amer 345 mL/min (>60); Globulin 6.1 g/dL (2.2-4.2); Glucose 108 mg/dL (74-106); Potassium 3.1 mmol/L (3.5-5.1); Protein, Total 7.7 g/dL (6.4-8.2); Sodium Level 134 mmol/L (136-145)
[2021-02-26 16:29] LABS: Differential Indicated SCAN CRITERIA MET
[2021-02-26 16:30] LABS: Anisocytosis 1+; Differential Comment SCANNED; Hypochromasia 1+; Target Cells 1+
== END ==
PROVIDERS: Referring Provider Nurse Practitioner Adult Health; Visit Provider Nurse Practitioner Adult Health
DX: R19.7 Diarrhea, unspecified (principal)
CPT/HCPCS: 36415; 74018; 80053; 85025

== ENCOUNTER 2021-03-19 13:31 | Emergency (ER) | payer MEDICARE, MEDICAID, SELFPAY ==
[2021-02-02 23:44] VITALS: BMI 24.1
[2021-03-19 13:33] VITALS: BP 137/73; PULSE 109; RESP 18; TEMP 37.1; O2SAT 99; BMI 26.9
--- NOTE | 2021-03-19 13:50 | EDS_ITS ---
HPI History of Present Illness Chief Complaint: Diarrhea Narrative Narrative: The patient presents complaining of diarrhea that has had for 3 or 4 weeks chronically loose watery he states he has to run to the bathroom all the time he has an extensive past history of alcoholic hepatitis bipolar disorder alcohol abuse jaundice hypoalbuminemia ascites see the list, all those conditions he reports are stable, he has no history of C. difficile antibiotics or exposures in who is been ill no coronavirus exposures he is able to eat and drink he is seen in the local clinic for his health care has been seen recently [facility] Medical History (Updated 02/03/21 @ 06:[address] Clay Choi MD) Anxiety Bipolar disorder Seizure Home Medications atorvastatin 40 mg PO DAILY 03/26/20 [History Last Taken 12/06/20] multivitamin 1 tab PO DAILY #90 tab 04/27/20 [Rx Last Taken 12/06/20] citalopram 20 mg PO DAILY 12/07/20 [History Last Taken 12/06/20] levetiracetam 500 mg PO BID 12/07/20 [History Last Taken 12/06/20] quetiapine 200 mg PO QHS 12/07/20 [History Last Taken 12/06/20] cetirizine 10 mg PO DAILY PRN PRN #0 12/14/20 [Rx Last Taken 12/06/20] magnesium oxide 400 mg PO DAILY #30 tab 12/14/20 [Rx Last Taken Unknown] metoprolol succinate 50 mg PO DAILY #0 12/14/20 [Rx Last Taken 12/06/20] mirtazapine 22.5 mg PO QHS #0 12/14/20 [Rx Last Taken 12/06/20] thiamine HCl (vitamin B1) 100 mg PO DAILY #30 tab 12/14/20 [Rx Last Taken Unknown] Potassium Chloride 40 meq PO X1 #2 tab.er.prt 01/28/21 [Rx Last Taken Unknown] cephalexin 250 mg PO TID 01/28/21 [History Last Taken Unknown] Allergy/AdvReac Type Severity Reaction Status Date / Time lisinopril Allergy Angioedema Verified 03/19/21 13:32 peanut Allergy Hives Verified 03/19/21 13:32 Family History Father Myocardial infarction Mother Stomach cancer Social History Smoking Status: Current every day smoker ROS ROS ED ROS Narrative His only complaint is diarrhea he has apparent baseline jaundice he has a slight distention of his abdomen he states is not new or different from the ascites Constitutional Constitutional ED: Reports subjective, sweats and other; Denies chills, fever(s) or weight loss Eyes Eyes: Denies blurry vision or change in vision ENT ENT ED: Denies ear pain Cardiovascular Cardiovascular: Denies chest pain or palpitations Respiratory/Chest Respiratory/Chest: Denies dyspnea Gastrointestinal Gastrointestinal: Reports diarrhea; Denies abdominal pain, nausea or vomiting Genitourinary Genitourinary ED: Denies dysuria or hematuria Musculoskeletal Musculoskeletal: Denies arthralgias or myalgias Integumentary Reports rash; Denies abscess Neurologic Neurologic: Denies weakness Psychiatric Psychiatric: Denies anxiety or depression Endocrine Endocrinology: Denies polydipsia or polyuria Allergic/Immunologic Allergic/Immunologic ED: Denies urticaria EXAM Physical Exam Const Vital Signs: 03/19/21 13:33 Temperature 98.7 F Temperature Source Temporal Pulse Rate 109 H Respiratory Rate 18 Blood Pressure 137/73 H Blood Pressure Mean 94 Pulse Ox 99 Oxygen Delivery Method Room Air Positive well developed General Appearance ED: well developed HEENT Reports normocephalic Negative for trauma Eyes EOMs intact bilaterally Neck supple Chest Wall inspection of chest normal Resp normal respiratory effort Cardio regular rate GI non-tender and non-distended GI Narrative: Has some slight distention of the abdomen nontender questionable fluid wave this is not new, he has some jaundice that is very mild he is awake and alert moving all 4 extremities no distress Back/Spine Back/Spine Narrative: unremarkable Extremity normal to inspection Neuro oriented x3 and CN's II-XII intact bilaterally Sensorium / Orientation: alert Psych mental status grossly normal Skin no rashes or lesions noted MDM MDM MDM Narrative Medical decision making narrative: Given his complaints all the above we obtain screening labs recommend provide stool sample he adamantly states he will not be able to provide stool sample for analysis we again reviewed all of the risk factors he denies any risk factors for C. difficile he has had this for some time he has not seen his physicians he is eating and drinking well his other health conditions have been stable he has had no exposure to antibiotics or sick individuals Discharge Plan Triage Chief Complaint: Diarrhea Other Complaint: Abd Pain ED Provider: Mckayla Major Dx/Rx/DC Orders Prescriptions: No Action atorvastatin 40 MG tablet 40 mg PO DAILY RF: 0 multivitamin 1 EACH tablet 1 tab PO DAILY Qty: 90 RF: 0 levetiracetam 500 MG tablet 500 mg PO BID RF: 0 citalopram 20 MG tablet 20 mg PO DAILY RF: 0 quetiapine 200 MG tablet 200 mg PO QHS RF: 0 cetirizine 10 MG tablet 10 mg PO DAILY PRN PRN (Reason: Allergies) Qty: 0 RF: 0 metoprolol succinate 50 MG tablet extended release 24 hr 50 mg PO DAILY Qty: 0 RF: 0 thiamine HCl (vitamin B1) 100 MG tablet 100 mg PO DAILY Qty: 30 RF: 1 mirtazapine 45 MG tablet 22.5 mg PO QHS Qty: 0 RF: 0 magnesium oxide 400 MG tablet 400 mg PO DAILY Qty: 30 RF: 0 cephalexin 250 MG capsule 250 mg PO TID RF: 0 Potassium Chloride 20 MEQ Tab.Er.Prt 40 meq PO X1 Qty: 2 RF: 0 [facility]
[2021-03-19 14:18] LABS: Absolute Lymphocyte Count 1.85 X10^3/uL (0.83-4.51); Absolute Neutrophil Count 4.2 X10^3/uL (2.0-7.7); Basophil# 0.04 X10^3/uL; Basophil% 0.6 % (0-1); Eosinophil# 0.03 X10^3/uL; Eosinophils% 0.4 % (0-5); Hematocrit 32.2 % (40-54); Hemoglobin 10.8 g/dL (13.0-16.5); Lymphocyte # 1.85 X10^3/ul (0.83-4.51); Lymphocyte % 26.4 % (19-41); Mean Corp Hgb Conc 33.5 g/dL (32-36); Mean Corpuscular Hgb 35.2 pg (27.0-32.0); Mean Corpuscular Volume 104.9 fL (80-94); Monocyte# 0.85 X10^3/uL; Monocyte% 12.1 % (0-10); NRBC Flagged by Analyzer 0 % (0-5); Neutrophil # 4.19 X10^3/uL (2.7-7.7); Neutrophil % 59.9 % (47-70); POSITIVE COUNT YES; Platelet Count 95 K/mm3 (150-450); RBC Distribution Width SD 61.1 fl (35.1-43.9); Red Blood Count 3.07 M/mm3 (4.6-6.2)
[2021-03-19 14:19] LABS: Differential Indicated SCAN CRITERIA MET
[2021-03-19 14:33] LABS: ALB/GLOB Ratio 0.2 RATIO (0.9-2.4); AST(SGOT) 314 U/L (15-37); Alanine Aminotransfer ALT/SGPT 46 U/L (16-61); Albumin, Serum 1.5 g/dL (3.2-5.0); Alkaline Phosphatase 236 U/L (45-117); Anion Gap 10 (5-15); BUN 6 mg/dL (7-18); BUN/Creat Ratio 8.8 RATIO (10-20); Calcium,Total 7.5 mg/dL (8.5-10.1); Chloride 103 mmol/L (98-107); Creatinine, Serum 0.68 mg/dL (0.70-1.30); EST Glomerular Filtration Rate 124 mL/min (>60); Est Glom Filt Rate - Afr Amer 150 mL/min (>60); Estimated Creatinine Clearance 119.96 ml/min; Globulin 6.2 g/dL (2.2-4.2); Glucose 119 mg/dL (74-106); Potassium 3.7 mmol/L (3.5-5.1); Protein, Total 7.7 g/dL (6.4-8.2); Sodium Level 132 mmol/L (136-145)
[2021-03-19 14:41] LABS: Platelet Estimate MOD DEC (ADEQ)
[2021-03-19 16:20] VITALS: BP 138/79; PULSE 89; RESP 18; O2SAT 97
== END 2021-03-19 16:21 | disposition home or self-care (01) ==
PROVIDERS: Emergency Provider Emergency Medicine
DX: R19.7 Diarrhea, unspecified (principal); K70.11 Alcoholic hepatitis with ascites; F41.9 Anxiety disorder, unspecified; F31.9 Bipolar disorder, unspecified; F17.200 Nicotine dependence, unspecified, uncomplicated; Z79.899 Other long term (current) drug therapy
CPT/HCPCS: 80053; 85025; 87493; 87506; 99284; J7030; A4216

== ENCOUNTER → 2021-03-21 14:37 | Outpatient (CLI) | payer MEDICARE, MEDICAID, SELFPAY ==
[2021-03-19 13:33] VITALS: BMI 26.9
[2021-03-21 15:42] LABS: Potassium 3.4 mmol/L (3.5-5.1)
== END ==
DX: E87.6 Hypokalemia (principal)
CPT/HCPCS: 36415; 84132

== ENCOUNTER 2021-03-22 00:32 | Inpatient (IN) | payer MEDICARE, MEDICAID, SELFPAY ==
[2021-03-22] VITALS (10 sets, daily range): BP systolic 101–131; BP diastolic 57–75; PULSE 68–116; RESP 16–19; TEMP 36.4–37; O2SAT 93–98; BMI 27.2; BMI 26.4
--- NOTE | 2021-03-22 00:42 | RAD_ITS ---
STUDY: X-RAY CHEST REASON FOR EXAM: Male, 60 years old. weakness TECHNIQUE: Single AP portable view of the chest. COMPARISON: . FINDINGS: There is decreased inspiratory effort with vascular crowding. There is mild bilateral basilar atelectasis. There is no demonstrated pleural abnormality. Normal size heart. Normal mediastinum and krista. Normal visualized pulmonary arteries. Normal visualized aortic arch and descending thoracic aorta. Normal visualized thoracic spine. Normal visualized ribs, clavicles, and shoulders. There is no demonstrated abnormality of the visualized soft tissue structures of the upper abdomen. RAD/Chest 1 View (Portable) IMPRESSION: Bilateral basilar atelectasis otherwise no acute cardiopulmonary disease. Electronically Signed: Sonya Reaves MD at 1:04 EDT , Service support ,
--- NOTE | 2021-03-22 00:42 | EKG12_ITS ---
Test Reason : EDEMA Blood Pressure : / mmHG Vent. Rate : 116 BPM Atrial Rate : 116 BPM P-R Int : 164 ms QRS Dur : 088 ms QT Int : 346 ms P-R-T Axes : 031 -11 028 degrees QTc Int : 480 ms Sinus tachycardia Low voltage QRS Inferior infarct , age undetermined Abnormal ECG Confirmed by SAHARA GARCIA, PRIYA ([id number]), continuity editor FREDIS PULIDO ([id number]) on 03/25/2021 10:32:40 AM Referred By: ANNABELLE Confirmed By:PRIYA SHOEMAKER MD
--- NOTE | 2021-03-22 00:43 | EDS_ITS ---
HPI History of Present Illness Chief Complaint: Edema Narrative Narrative: 60-year-old male presents with concern for weakness. Patient states he is unable to get out of his chair because he had lower extremity weakness with swelling. States is progressed over the past 1 day. Patient has a past medical history of cirrhosis secondary to alcoholism. Patient continues to drink daily. States he has 2 beers per day. Denies any chest pain, shortness of breath, nausea vomiting, abdominal pain. States that his abdominal swelling is at baseline. States he does have an appointment with his primary care physician today. [facility] Medical History Anxiety Bipolar disorder Cirrhosis Hepatitis Seizure Home Medications atorvastatin 40 mg PO DAILY 03/26/20 [History Last Taken 12/06/20] multivitamin 1 tab PO DAILY #90 tab 04/27/20 [Rx Last Taken 12/06/20] citalopram 20 mg PO DAILY 12/07/20 [History Last Taken 12/06/20] levetiracetam 500 mg PO BID 12/07/20 [History Last Taken 12/06/20] quetiapine 200 mg PO QHS 12/07/20 [History Last Taken 12/06/20] cetirizine 10 mg PO DAILY PRN PRN #0 12/14/20 [Rx Last Taken 12/06/20] magnesium oxide 400 mg PO DAILY #30 tab 12/14/20 [Rx Last Taken Unknown] metoprolol succinate 50 mg PO DAILY #0 12/14/20 [Rx Last Taken 12/06/20] mirtazapine 22.5 mg PO QHS #0 12/14/20 [Rx Last Taken 12/06/20] thiamine HCl (vitamin B1) 100 mg PO DAILY #30 tab 12/14/20 [Rx Last Taken Unknown] Potassium Chloride 40 meq PO X1 #2 tab.er.prt 01/28/21 [Rx Last Taken Unknown] cephalexin 250 mg PO TID 01/28/21 [History Last Taken Unknown] Allergy/AdvReac Type Severity Reaction Status Date / Time lisinopril Allergy Angioedema Verified 03/22/21 00:37 peanut Allergy Hives Verified 03/22/21 00:37 Family History Father Myocardial infarction Mother Stomach cancer Social History Smoking Status: Current every day smoker tobacco type: cigarettes ROS ROS ED Constitutional Constitutional ED: Reports other Details: Weakness ; Denies chills, fever(s) or sweats Eyes Eyes: Denies blurry vision, change in vision or diplopia ENT ENT ED: Denies rhinorrhea or sore throat Cardiovascular Cardiovascular: Denies chest pain, orthopnea, palpitations or racing heartbeat Respiratory/Chest Respiratory/Chest: Denies cough, dyspnea, dyspnea on exertion, orthopnea or sputum Gastrointestinal Gastrointestinal: Denies abdominal pain, constipation, diarrhea, melena, nausea or vomiting Genitourinary Genitourinary ED: Denies dysuria, hematuria or urinary frequency Musculoskeletal Musculoskeletal: Reports other Details: Edema ; Denies arthralgias, myalgias or neck pain Integumentary Denies rash Neurologic Neurologic: Denies headache(s), paresthesias or weakness Psychiatric Psychiatric: Denies anxiety or depression Hematologic/Lymphatic Hematologic/Lymphatic: Denies easy bleeding or easy bruising Allergic/Immunologic Allergic/Immunologic ED: Denies mouth swelling or tongue swelling EXAM Physical Exam Const Vital Signs: 03/22/21 00:33 Temperature 98.1 F Temperature Source Temporal Pulse Rate 68 Respiratory Rate 19 H Blood Pressure 111/66 Blood Pressure Mean 81 Pulse Ox 95 Oxygen Delivery Method Room Air Positive unkempt General Appearance ED: unkempt HEENT Reports TM's clear and moist mucous membranes normocephalic and atraumatic Tympanic Membrane ED: Yes TM's clear Eyes PERRL and EOMs intact bilaterally General Eye ED: Yes scleral icterus Neck no lymphadenopathy, supple and no JVD Chest Wall inspection of chest normal Resp normal respiratory effort and clear to auscultation bilaterally Cardio regular rate, S1 normal heart sound, S2 normal heart sound and no murmurs Peripheral Pulses: pulses 2+ throughout GI soft to palpation and non-tender GI Narrative: Abdominal distention with ascites. No tenderness to palpation. No rebound or guarding. Back/Spine no CVA tenderness and no thoracic nor lumbar tenderness Extremity normal to inspection Extremity Narrative: 1+ pitting edema bilaterally. General Extremety ED: Negative for tenderness Neuro oriented x3, CN's II-XII intact bilaterally and no sensory deficits noted Sensorium / Orientation: alert Motor Exam: strength 5/5 throughout Psych mental status grossly normal Appearance: unkempt Skin General Skin Exam: jaundice MDM MDM MDM Narrative Medical decision making narrative: Patient appears chronically ill. Tachycardic upon arrival. No hypoxemia. States his ascites is at baseline. Peripheral edema bilaterally. Strong palpable pulses. Lab work shows a chronic anemia which is at baseline as well as an elevated bilirubin which is also at his baseline. Chest x-ray interpreted by myself shows no evidence of significant volume overload, cardiomegaly, infiltrate. Radiology concurs. Hyponatremia w hich is slightly worsened at 130. Troponin negative. Liver enzymes at baseline. Worsened renal function. Patient will be given Lasix for his anasarca. Patient will be admitted to the hospital given his inability to ambulate as well as weakness and worsening edema. Patient stable at time of admission. Lab Data Attestation: I reviewed the patient's lab results. Labs: Laboratory Results - last 24 hr 03/22/21 03/22/21 03/22/21 00:45 00:45 00:45 WBC 7.1 RBC 2.41 L Hgb 8.4 L Hct 24.9 L MCV 103.3 H MCH 34.9 H MCHC 33.7 RDW Std Deviation 57.5 H RDW Coeff of William 15.4 H Plt Count 86 L MPV 10.0 Immature Gran % (Auto) 0.600 Neut % (Auto) 65.7 Lymph % (Auto) 19.4 [place] % (Auto) 13.6 H Eos % (Auto) 0.3 Baso % (Auto) 0.4 Absolute Neuts (auto) 4.7 Absolute Lymphs (auto) 1.38 Nucleated RBC % 0 PT 21.2 H INR 1.9 Sodium 130 L Potassium 3.4 L Chloride 102 Carbon Dioxide 17.0 L Anion Gap 11 BUN 11 Creatinine 1.59 H Estim Creat Clear Calc 51.31 Est GFR (MDRD) Af Amer 57 L Est GFR (MDRD) Non-Af 47 L BUN/Creatinine Ratio 6.9 L Glucose 127 H Calcium 7.3 L Total Bilirubin 7.00 H AST 201 H ALT 38 Alkaline Phosphatase 182 H Troponin I < 0.015 Total Protein 6.4 Albumin 1.3 L Globulin 5.1 H Albumin/Globulin Ratio 0.3 L Ethyl Alcohol 03/22/21 00:45 WBC RBC Hgb Hct MCV MCH MCHC RDW Std Deviation RDW Coeff of William Plt Count MPV Immature Gran % (Auto) Neut % (Auto) Lymph % (Auto) [place] % (Auto) Eos % (Auto) Baso % (Auto) Absolute Neuts (auto) Absolute Lymphs (auto) Nucleated RBC % PT INR Sodium Potassium Chloride Carbon Dioxide Anion Gap BUN Creatinine Estim Creat Clear Calc Est GFR (MDRD) Af Amer Est GFR (MDRD) Non-Af BUN/Creatinine Ratio Glucose Calcium Total Bilirubin AST ALT Alkaline Phosphatase Troponin I Total Protein Albumin Globulin Albumin/Globulin Ratio Ethyl Alcohol 40.0 Radiography Chest X-Ray - ED: 1 View, Read by ED Physician, Read by Radiologist and Chronic Changes Diagnostic Testing: Radiology Impression Chest X-Ray 03/22/21 00:42 IMPRESSION: Bilateral basilar atelectasis otherwise no acute cardiopulmonary disease. Electronically Signed: Sonya Reaves MD at 1:04 EDT , Service support , Rhythm Strip Rhythm Strip: Sinus Tach Rate: 116 Ectopy: None EKG Initial EKG: Attestation: I personally reviewed and interpreted this EKG as follows: Interpretation: No Acute Injury Pattern and Sinus Tachycardia Comments: Sinus tachycardia [address] interval 164 ms. QTC of 480 ms. No evidence of ST elevation or depression at this time. Nonspecific ST changes. Discharge Plan Triage Chief Complaint: Edema ED Provider: Kurtis Cheung Dx/Rx/DC Orders Clinical Impression: Anasarca, Hyponatremia, Hypoalbuminemia, Ascites due to alcoholic hepatitis, Weakness, Inability to walk, Alcoholic cirrhosis, Acute renal insufficiency Prescriptions: No Action atorvastatin 40 MG tablet 40 mg PO DAILY RF: 0 multivitamin 1 EACH tablet 1 tab PO DAILY Qty: 90 RF: 0 levetiracetam 500 MG tablet 500 mg PO BID RF: 0 citalopram 20 MG tablet 20 mg PO DAILY RF: 0 quetiapine 200 MG tablet 200 mg PO QHS RF: 0 cetirizine 10 MG tablet 10 mg PO DAILY PRN PRN (Reason: Allergies) Qty: 0 RF: 0 metoprolol succinate 50 MG tablet extended release 24 hr 50 mg PO DAILY Qty: 0 RF: 0 thiamine HCl (vitamin B1) 100 MG tablet 100 mg PO DAILY Qty: 30 RF: 1 mirtazapine 45 MG tablet 22.5 mg PO QHS Qty: 0 RF: 0 magnesium oxide 400 MG tablet 400 mg PO DAILY Qty: 30 RF: 0 cephalexin 250 MG capsule 250 mg PO TID RF: 0 Potassium Chloride 20 MEQ Tab.Er.Prt 40 meq PO X1 Qty: 2 RF: 0 Primary Care Provider: Debra Sosa Referrals: [facility] Debra Renner [Primary Care Provider] - Disposition Disposition: Acute Care Hospital [facility]
[2021-03-22 00:53] LABS: Absolute Lymphocyte Count 1.38 X10^3/uL (0.83-4.51); Absolute Neutrophil Count 4.7 X10^3/uL (2.0-7.7); Basophil# 0.03 X10^3/uL; Basophil% 0.4 % (0-1); Eosinophil# 0.02 X10^3/uL; Eosinophils% 0.3 % (0-5); Hematocrit 24.9 % (40-54); Hemoglobin 8.4 g/dL (13.0-16.5); Lymphocyte # 1.38 X10^3/ul (0.83-4.51); Lymphocyte % 19.4 % (19-41); Mean Corp Hgb Conc 33.7 g/dL (32-36); Mean Corpuscular Hgb 34.9 pg (27.0-32.0); Mean Corpuscular Volume 103.3 fL (80-94); Monocyte# 0.97 X10^3/uL; Monocyte% 13.6 % (0-10); NRBC Flagged by Analyzer 0 % (0-5); Neutrophil # 4.69 X10^3/uL (2.7-7.7); Neutrophil % 65.7 % (47-70); POSITIVE COUNT YES; Platelet Count 86 K/mm3 (150-450); RBC Distribution Width CV 15.4 % (11.6-14.6); RBC Distribution Width SD 57.5 fl (35.1-43.9); Red Blood Count 2.41 M/mm3 (4.6-6.2); White Blood Count 7.1 K/mm3 (4.4-11.0)
[2021-03-22 01:06] LABS: International Normalized Ratio 1.9; Prothrombin Time (Protime)PT. 21.2 SECONDS (11.7-14.9)
[2021-03-22 01:11] LABS: ALB/GLOB Ratio 0.3 RATIO (0.9-2.4); AST(SGOT) 201 U/L (15-37); Alanine Aminotransfer ALT/SGPT 38 U/L (16-61); Albumin, Serum 1.3 g/dL (3.2-5.0); Alkaline Phosphatase 182 U/L (45-117); Anion Gap 11 (5-15); BUN 11 mg/dL (7-18); BUN/Creat Ratio 6.9 RATIO (10-20); Calcium,Total 7.3 mg/dL (8.5-10.1); Chloride 102 mmol/L (98-107); Creatinine, Serum 1.59 mg/dL (0.70-1.30); EST Glomerular Filtration Rate 47 mL/min (>60); Est Glom Filt Rate - Afr Amer 57 mL/min (>60); Estimated Creatinine Clearance 51.31 ml/min; Globulin 5.1 g/dL (2.2-4.2); Glucose 127 mg/dL (74-106); Potassium 3.4 mmol/L (3.5-5.1); Protein, Total 6.4 g/dL (6.4-8.2); Sodium Level 130 mmol/L (136-145)
[2021-03-22] MEDS: Furosemide 40 MG/4 ML Vial IV (01:32)
[2021-03-22 01:34] LABS: BNP,B-Type NATRIURETIC PEPTIDE 27.1 pg/mL (0-100)
--- NOTE | 2021-03-22 02:05 | PCM.HP.STD ---
HPI - General General Date of Admission: 03/22/21 Date of Service: 03/22/21 Chief Complaint: Generalized weakness HPI Narrative HERB RICHARDS, is a 60 M who presents to the emergency room at [facility] with a chief complaint of generalized weakness, patient states he was too weak to get up out of a chair and came in for evaluation. Patient has a long history of alcoholic liver disease and continues to drink on a daily basis. Labs obtained in the emergency room included a CBC which was remarkable for hemoglobin of 8.4 and a platelet count of 86,000. Patient's chemistry profile showed a sodium of 130, potassium of 3.4, and creatinine of 1.59. Patient's liver tests showed an AST of 201, bilirubin was 7, alkaline phosphatase was 182. Patient's albumin was low at 1.3. Blood alcohol level was 40. On examination, patient's abdomen appears to be distended but it is also tympanic and I think that it is mainly bowel gas that is causing the distention not ascites. Patient has moderate peripheral edema which may be secondary to his low albumin and his alcoholic liver disease. I believe that he is probably intravascularly depleted and will need fluids. Patient will be admitted to [facility], he will be seen in consultation by PT and OT, he will be given IV fluids and his labs will be monitored. Patient is anemic and it is unknown whether he has had a recent GI bleed, I will repeat his H&H at 9:00 this morning, he may need a blood transfusion. I briefly had a talk with him about his CODE STATUS, he stated that if his heart stopped and he quit breathing-I want to be cremated. I have made the patient a DNR CC arrest without intubation. [facility] Medical History Anxiety Bipolar disorder Cirrhosis Hepatitis Seizure Home Medications atorvastatin 40 mg PO DAILY 03/26/20 [History Last Taken 12/06/20] multivitamin 1 tab PO DAILY #90 tab 04/27/20 [Rx Last Taken 12/06/20] citalopram 20 mg PO DAILY 12/07/20 [History Last Taken 12/06/20] levetiracetam 500 mg PO BID 12/07/20 [History Last Taken 12/06/20] quetiapine 200 mg PO QHS 12/07/20 [History Last Taken 12/06/20] cetirizine 10 mg PO DAILY PRN PRN #0 12/14/20 [Rx Last Taken 12/06/20] magnesium oxide 400 mg PO DAILY #30 tab 12/14/20 [Rx Last Taken Unknown] metoprolol succinate 50 mg PO DAILY #0 12/14/20 [Rx Last Taken 12/06/20] mirtazapine 22.5 mg PO QHS #0 12/14/20 [Rx Last Taken 12/06/20] thiamine HCl (vitamin B1) 100 mg PO DAILY #30 tab 12/14/20 [Rx Last Taken Unknown] Potassium Chloride 40 meq PO X1 #2 tab.er.prt 01/28/21 [Rx Last Taken Unknown] cephalexin 250 mg PO TID 01/28/21 [History Last Taken Unknown] Allergy/AdvReac Type Severity Reaction Status Date / Time lisinopril Allergy Angioedema Verified 03/22/21 00:37 peanut Allergy Hives Verified 03/22/21 00:37 Family History Father Myocardial infarction Mother Stomach cancer Social History Smoking Status: Current every day smoker tobacco type: cigarettes ROS Constitutional Constitutional: Reports fatigue and weakness; Denies anorexia, change in weight, chills, fever(s), malaise or night sweats Eyes Eyes: Denies blurry vision, change in vision, discharge from eye(s) or eye pain Cardiovascular Cardiovascular: Denies chest pain, claudication, dyspnea on exertion, edema, lightheadedness or palpitations Respiratory/Chest Respiratory/Chest: Denies cough, dyspnea, hemoptysis, shortness of breath at rest or shortness of breath with exertion Gastrointestinal Gastrointestinal: Denies abdominal pain, constipation, diarrhea, dyspepsia, hematemesis, hematochezia, melena, nausea or vomiting Genitourinary Genitourinary: Denies dysuria, hematuria, urinary frequency, urinary hesitancy, urinary incontinence or urinary urgency Musculoskeletal Musculoskeletal: Denies back pain, joint pain, joint stiffness, joint swelling, myalgias or neck pain Neurologic Neurologic: Denies abnormal gait, abnormal speech, dizziness, focal weakness, headache(s), loss of vision, numbness, other visual disturbances, paresthesias, syncope or tingling Psychiatric Psychiatric: Denies anxiety, cognitive impairment, depression, irritability, mood swings or suicidal ideation Endocrine Endocrinology: Denies change in body appearance, cold intolerance, excessive sweating, heat intolerance, polydipsia or polyuria Hematologic/Lymphatic Hematologic/Lymphatic: Denies none, anemia, easy bleeding, easy bruising or lymphadenopathy Allergic/Immunologic Allergic/Immunologic: Denies rhinitis, urticaria, eczemia or asthma Vital Signs Vital Signs Vital Signs: 03/22/21 00:33 Temperature 98.1 F Temperature Source Temporal Pulse Rate 68 Respiratory Rate 19 H Blood Pressure 111/66 Blood Pressure Mean 81 Pulse Ox 95 Oxygen Delivery Method Room Air Weight Weight: 88.5 kg Body Mass Index (BMI) 27.2 Physical Exam Const alert, oriented x3 and no apparent distress Constitutional Narrative: Patient appears much older than the stated age, his hygiene is poor General Appearance: cooperative, well kempt and well developed Orientation / Consciousness: awake, oriented to person, oriented to place and oriented to time HEENT normocephalic, head/scalp atraumatic, hearing grossly normal bilaterally and moist oral mucous membranes Eyes PERRL, EOMs intact bilaterally and conjunctivae normal Neck nuchal rigidity, supple, no JVD, thyroid normal and no carotid bruits General: trachea midline Resp normal respiratory effort, no retractions, no use of accessory muscles and clear to auscultation bilaterally Auscultation: Negative for rales, rhonchi or wheezes Cardio regular rate, regular rhythm, S1 normal heart sound, S2 normal heart sound, no murmurs, no rub, no gallops and no clicks GI soft to palpation and non-tender GI Narrative: Abdomen is distended and tympanic, there is no rebound abdominal tenderness noted, a fluid wave was not detected on palpation of the abdomen. Bowel sounds were present Extremity no clubbing, cyanosis or edema Skin no rashes or lesions noted Skin Narrative: Patient appears jaundiced General Skin Exam: no breakdown Neuro oriented x3, CN's II-XII intact bilaterally, no focal motor deficits and no sensory deficits noted Neuro Narrative: Patient appears lethargic but answers questions appropriately Sensorium / Orientation: awake Speech: speech normal Psych thought process normal Psych Narrative: Has flat affect Results Lab / Micro Data Result Diagrams: 03/22/21 00:45 03/22/21 00:45 Labs: Laboratory Results - last 24 hr 03/22/21 03/22/21 03/22/21 00:45 00:45 00:45 WBC 7.1 RBC 2.41 L Hgb 8.4 L Hct 24.9 L MCV 103.3 H MCH 34.9 H MCHC 33.7 RDW Std Deviation 57.5 H RDW Coeff of William 15.4 H Plt Count 86 L MPV 10.0 Immature Gran % (Auto) 0.600 Neut % (Auto) 65.7 Lymph % (Auto) 19.4 [place] % (Auto) 13.6 H Eos % (Auto) 0.3 Baso % (Auto) 0.4 Absolute Neuts (auto) 4.7 Absolute Lymphs (auto) 1.38 Nucleated RBC % 0 PT 21.2 H INR 1.9 Sodium 130 L Potassium 3.4 L Chloride 102 Carbon Dioxide 17.0 L Anion Gap 11 BUN 11 Creatinine 1.59 H Estim Creat Clear Calc 51.31 Est GFR (MDRD) Af Amer 57 L Est GFR (MDRD) Non-Af 47 L BUN/Creatinine Ratio 6.9 L Glucose 127 H Calcium 7.3 L Total Bilirubin 7.00 H AST 201 H ALT 38 Alkaline Phosphatase 182 H Troponin I < 0.015 B-Natriuretic Peptide Total Protein 6.4 Albumin 1.3 L Globulin 5.1 H Albumin/Globulin Ratio 0.3 L Ethyl Alcohol 03/22/21 03/22/21 00:45 00:45 WBC RBC Hgb Hct MCV MCH MCHC RDW Std Deviation RDW Coeff of William Plt Count MPV Immature Gran % (Auto) Neut % (Auto) Lymph % (Auto) [place] % (Auto) Eos % (Auto) Baso % (Auto) Absolute Neuts (auto) Absolute Lymphs (auto) Nucleated RBC % PT INR Sodium Potassium Chloride Carbon Dioxide Anion Gap BUN Creatinine Estim Creat Clear Calc Est GFR (MDRD) Af Amer Est GFR (MDRD) Non-Af BUN/Creatinine Ratio Glucose Calcium Total Bilirubin AST ALT Alkaline Phosphatase Troponin I B-Natriuretic Peptide 27.1 Total Protein Albumin Globulin Albumin/Globulin Ratio Ethyl Alcohol 40.0 Rhythm Strip Rhythm Strip: Sinus Tach Rate: 116 Ectopy: None Radiology Impression Chest X-Ray 03/22/21 00:42 IMPRESSION: Bilateral basilar atelectasis otherwise no acute cardiopulmonary disease. Electronically Signed: Sonya Reaves MD at 1:04 EDT , Service support , Assessment & Plan Assessment/Plan (1) Inability to walk: PLAN: 1. Generalized debility secondary to intravascular volume depletion, chronic alcoholism, chronic liver disease, and anemia-patient will be admitted to [facility] 3, he will be seen by PT and OT, patient may need placement in a [place] [facility] [place] facility. #2 elevated creatinine-I feel the patient is intravascularly volume depleted, I have decided to give him fluids rather than diurese the patient. Labs will be rechecked tomorrow #3 anemia-unsure etiology of the anemia, could be due to blood loss or nutritional deficiency. Serum iron level will be ordered, repeat H&H will be obtained at 9 AM this morning, he may need a blood transfusion. #4 chronic alcoholism #5 alcoholic liver disease #6 abdominal distention-probably secondary to bowel gas, patient's last abdominal ultrasound did not show any evidence of ascites, I will not reorder abdominal ultrasound at this time #7 seizure disorder-patient is on Keppra #8 bipolar disorder-patient is on Seroquel #9 peripheral edema secondary to low albumin from alcoholic liver disease-it is doubtful that anything can be done regarding his peripheral edema. Again, I feel the patient should be a DNR CC arrest without intubation based on my conversations with him in the emergency room. Charges/Coding Visit Charges Inpatient E&M: 29456 Init Hosp L3
[2021-03-22] MEDS: 0.9% Normal Saline 1,000 ML 100 ML IV ×3 (02:51→23:13)
--- NOTE | 2021-03-22 08:04 | US_ITS ---
PROCEDURE: Ultrasound guided paracentesis. DATE OF EXAMINATION: 03/22/2021. INDICATION: Male, 60 years old. Ascites. PHYSICIAN: Emmanuel Craig M.D. TECHNIQUE: The risks, benefits, and alternatives to the procedure were explained to the patient. The specific risks of bleeding, infection, and damage to bowel were detailed and accepted. Witnessed informed consent was obtained. The abdomen was ultrasonographically surveyed. An appropriate pocket of fluid was identified at the right lower quadrant. The skin were cleaned and prepped in the usual sterile fashion. Using ultrasound guidance, the peritoneal cavity was accessed with a 5-Mexican paracentesis needle/catheter system. The trocar was removed. A total of 1650 ml of clovis-colored fluid were removed from the peritoneal cavity. A 100 mL sample was sent to the laboratory. The catheter was removed and a sterile dressing was applied. The procedure was well tolerated. US/Paracentesis with US IMPRESSION: Ultrasound guided paracentesis. Electronically Signed: Emmanuel Craig MD at 13:12 EDT , Service support ,
[2021-03-22 09:42] LABS: Hematocrit 21.1 % (40-54); Hemoglobin 7.3 g/dL (13.0-16.5)
--- NOTE | 2021-03-22 10:12 | NURSING ---
spoke with pt porter sample case Diana and informed her about pt admission. requested she provide updated home med list when able and discussed visiting hours with her.
--- NOTE | 2021-03-22 10:15 | PCM.PN.HOSP ---
Subjective Subjective Patient is a 60-year-old gentleman with history of cirrhosis of the liver who presented with progressive generalized weakness admitted to regular nursing for further management. Patient was found to have markedly elevated distended abdomen consistent with ascites. Objective Data Objective Data Vital Signs: Vital Signs Temp Pulse Resp BP Pulse Ox 98.1 F 111 H 16 101/57 L 97 03/22/21 03:00 03/22/21 03:00 03/22/21 03:00 03/22/21 03:00 03/22/21 03:00 Oxygen Delivery Method Room Air Weight: 86 kg Body Mass Index (BMI) 26.4 Intake & Output: Intake and Output for Last 24 Hours 03/20/21 03/21/21 03/22/21 23:59 23:59 23:59 Intake Total 0 / 0 Output Total 0 / 0 Balance 0 / 0 Lab / Micro Data Result Diagrams: 03/22/21 09:17 03/22/21 00:45 Labs: Laboratory Results - last 24 hr 03/22/21 03/22/21 03/22/21 00:45 00:45 00:45 WBC 7.1 RBC 2.41 L Hgb 8.4 L Hct 24.9 L MCV 103.3 H MCH 34.9 H MCHC 33.7 RDW Std Deviation 57.5 H RDW Coeff of William 15.4 H Plt Count 86 L MPV 10.0 Immature Gran % (Auto) 0.600 Neut % (Auto) 65.7 Lymph % (Auto) 19.4 [place] % (Auto) 13.6 H Eos % (Auto) 0.3 Baso % (Auto) 0.4 Absolute Neuts (auto) 4.7 Absolute Lymphs (auto) 1.38 Nucleated RBC % 0 PT 21.2 H INR 1.9 Sodium 130 L Potassium 3.4 L Chloride 102 Carbon Dioxide 17.0 L Anion Gap 11 BUN 11 Creatinine 1.59 H Estim Creat Clear Calc 51.31 Est GFR (MDRD) Af Amer 57 L Est GFR (MDRD) Non-Af 47 L BUN/Creatinine Ratio 6.9 L Glucose 127 H Calcium 7.3 L Total Bilirubin 7.00 H AST 201 H ALT 38 Alkaline Phosphatase 182 H Troponin I < 0.015 B-Natriuretic Peptide Total Protein 6.4 Albumin 1.3 L Globulin 5.1 H Albumin/Globulin Ratio 0.3 L Ethyl Alcohol 03/22/21 03/22/21 03/22/21 00:45 00:45 09:17 WBC RBC Hgb 7.3 L Hct 21.1 L MCV MCH MCHC RDW Std Deviation RDW Coeff of William Plt Count MPV Immature Gran % (Auto) Neut % (Auto) Lymph % (Auto) [place] % (Auto) Eos % (Auto) Baso % (Auto) Absolute Neuts (auto) Absolute Lymphs (auto) Nucleated RBC % PT INR Sodium Potassium Chloride Carbon Dioxide Anion Gap BUN Creatinine Estim Creat Clear Calc Est GFR (MDRD) Af Amer Est GFR (MDRD) Non-Af BUN/Creatinine Ratio Glucose Calcium Total Bilirubin AST ALT Alkaline Phosphatase Troponin I B-Natriuretic Peptide 27.1 Total Protein Albumin Globulin Albumin/Globulin Ratio Ethyl Alcohol 40.0 Radiography Diagnostic Testing: Radiology Impression Chest X-Ray 03/22/21 00:42 IMPRESSION: Bilateral basilar atelectasis otherwise no acute cardiopulmonary disease. Electronically Signed: Sonya Reaves MD at 1:04 EDT , Service support , Rhythm Strip Rhythm Strip: Sinus Tach Rate: 116 Ectopy: None Physical Exam Narrative GENERAL: cooperative HEENT: Atraumatic; EYES; Anicteric, Normal Conjunctiva NECK; supple, normal thyroid, RESPIRATORY: Diminished to auscultation CARDIOVASCULAR: Regular S1 S2, GI: Abdomen distended dull to percussion : No Renal angle tenderness; EXTREMITIES: edema, no clubbing, MUSCULOSKELETAL: no muscle waisting NEURO: Awake; no lateralizing signs. SKIN: No Rash PSYCH; Flat affect Assessment & Plan Assessment/Plan (1) Inability to walk: PLAN: Patient is a 60-year-old gentleman with history of cirrhosis of the liver who presented with progressive generalized weakness admitted to regular nursing for further management. Patient was found to have markedly elevated distended abdomen consistent with ascites. 1. Ascites ?Secondary to cirrhosis of the liver from chronic alcoholism. Patient admitted to regular nursing floor requested for ultrasound-guided paracentesis with diagnostic work-up requested 2. Physical deconditioning - Requested for PT OT eval and social sciences department chair to assist with discharge planning 3. Acute renal failure ?Do suspect volume depletion despite patient being ascitic. Did order for albumin. Subsequent monitoring of electrolyte ordered 4. Thrombocytopenia ?Secondary to chronic liver disease monitoring, 5. Cirrhosis of the liver secondary to chronic alcohol use ?Patient presented with ascites management as discussed above 6. Chronic alcohol dependence ?Patient was counseled on cessation 7. Seizure disorder ?Patient is on Keppra 8. Bipolar disorder ?Patient is on Seroquel 9. DVT prophylaxis ?Chemoprophylaxis contraindicated in view of patient's low platelet count #8 bipolar disorder-patient is on Seroquel #9 peripheral edema secondary to low albumin from alcoholic liver disease-it is doubtful that anything can be done regarding his peripheral edema. Again, I feel the patient should be a DNR CC arrest without intubation based on my conversations with him in the emergency room. Charges/Coding Visit Charges Inpatient E&M: 15521 Subs Hosp L3
[2021-03-22] MEDS: Citalopram 20 MG Tablet PO (11:03)
[2021-03-22] MEDS: Thiamine Hydrochloride 100 MG Tablet PO (11:04)
[2021-03-22] MEDS: levETIRAcetam 500 MG Tablet PO ×2 (11:04→22:07)
[2021-03-22] MEDS: Metoprolol(XL)Succ 50 MG Tablet PO (11:04)
--- NOTE | 2021-03-22 11:55 | RAD_ITS ---
STUDY: X-RAY - ABDOMEN/PELVIS REASON FOR EXAM: Male, 60 years old. abdominal distension TECHNIQUE: AP supine and decubitus views of the abdomen and pelvis. COMPARISON: None. FINDINGS: Normal visualized lung bases. There is mild gaseous distention of the stomach. There is otherwise general paucity of the bowel gas. There is no demonstrated free abdominal air. The visualized liver, spleen and kidneys are grossly normal in size and morphology. Normal soft tissue structures. Normal visualized osseous structures. RAD/Abd Decub and/or Erect(Portabl IMPRESSION: Mild gaseous distention of the stomach. Otherwise general paucity of bowel gas. Electronically Signed: Justina Arellano MD at 14:09 EDT Tel , Service support ,
--- NOTE | 2021-03-22 12:46 | FLU_PTH ---
PATIENT: HERB RICHARDS LOC: MS3 U#:[id number] AGE/SX: 60/M ROOM: [facility] [place]03/22/[address]: Dr. Chris Madrigal MD : 1960 BED: 1 DIS: 03/23/2021 SPEC #: [id number] RECD: 03/22/21 12:57 STATUS: CROW REQ #: [id number] ERASMO: 03/22/21 12:[address]: Chris Madrigal DEPT: CYTOLOGY RECD BY: Cecilio Shetty ENTERED: 03/22/21 13:38 SP TYPE: Fluid OTHR DR: Dr. Sonido Michael, [facility] Tissues: PARACENTESIS FLUID Procedures: Special Stain Group II Surgery Specimen Level IV Cytospin Fluid HEADER OPERATION: Paracentesis PRE-OP DIAGNOSIS: Ascites TISSUE SUBMITTED: Paracentesis fluid for cytology DIAGNOSIS CYTOLOGY Paracentesis fluid for cytology (cytospin and cell block): Negative for malignant cells. See comment. LAKEISHA:benita 03/25/2021 COMMENT Clinical correlation and appropriate follow up are necessary. CYTOLOGY STUDY Slides are reviewed. CYTOLOGY GROSS Received is 90 ml of hazy yellow fluid labeled with the patient's name and and designated per the requisition as paracentesis. Submitted for cytology preparation including cell block. / benita 03/22/2021 TC:5 CPT: 56451, 04204
[2021-03-22 13:20] LABS: Body Fluid Mononuclear WBC # 0.046 10^3/uL; Body Fluid Mononuclear WBC % 90.2 %; Body Fluid Polynuclear WBC # 0.005 10^3/uL; Body Fluid Polynuclear WBC % 9.8 %; Body Fluid Total Cells Counted 0.103 10^3/ul; White Blood Count/Body Fluid 0.051 10^3/uL
[2021-03-22 13:22] LABS: Auto B Fluid Analyzer BKGD Ct COUNTS W/IN LIMITS (W/IN LIMITS)
[2021-03-22 13:23] LABS: Appearance/Body Fluid CLEAR; Color/Body Fluid YELLOW
[2021-03-22 13:39] LABS: Glucose, Body Fluid 125 mg/dL (40-70); LDH,Body Fluid 42 Units/l (Not Establ.); Protein, Body Fluid 0.7 g/dL (Not Establ.); Red Cell Count/Body Fluid 40 /mm3
[2021-03-22 14:02] LABS: Lymphocytes 9 %; Macrophages 80 %; Mesothelial Cells 10 %; Neutrophil (Segs) 1 %; Source- Body Fluid OTHER
[2021-03-22 14:04] LABS: Body Fluid QC Type(s) BF1Q,BF2Q
--- NOTE | 2021-03-22 14:07 | CASEMGMT ---
Social Work SW to room to meet with patient for initial assessment. SW introduced self and role at [facility]. Pt voices understanding and consents to assessment at this time. Pt is A/Ox3 at this time and answers all questions appropriately. Laying in bed and does not open eyes but is willing to speak with SW. Care providers, pharmacy, and demographics verified/updated at this time. PCP: Debra Rodriguez Preferred Pharmacy: [place] Insurance: [facility] Prescription Benefit: yes Living Will/HPOA: Pt does not currently have LW/HCPOA and declines info at this time. LNOK: Diana Luong, Mental Health Supervisor [employer] Living Arrangements: Pt lives at home alone in a one story apartment with laundry in the basement. Pt states he can complete dressing tasks by sitting on the bed. It is very difficult and slow but he can complete. Pt sponge bathes as he is afraid to get into tub. Pt states he does need help with housekeeping and cannot complete stairs to do laundry. Pt does receive home delivered meals but states he cannot eat them because they are too spicy and he eats food cold out of the cans. Transportation: Pt does not drive and his CM from the [facility] provides transportation. DME: States has the following DME: Walker, grab bars shower bench HHC/SNF: no previous SNF. He has had home health in the past. Alcohol: Pt states he drinks only 1 beer a day. Pt confirms he use to drink much more than this and is happy with reduction to 1 beer a day with no plans of stopping. Pt has met with 180 in the past but did go to any programs and has no desire to receive more information. SW spoke with pt regarding discharge plan and pt clearly states he will not go to a SNF. He plans to return home although he does state awareness that he is having difficulty functioning at home. Pt is open to home health care. SW provided a list of [facility] providers including quality and resource use data consistent with the patient's preferred geographic region, medial need and insurance network. Pt refuses to open eyes and look at list. States he doesn't care who comes to help him. With pt permission phone call to Diana Luong CM at [facility]. Diana states pt needs a home health aid and she has been unable to obtain this. She states she is working with [facility]. Phone call to Klarissa Lorenzana at [facility] who is pt special education case manager. Pt was on the Passport program and pt changed to the Waiver program on 03/19 and is new to Klarissa. Pt does have a life line and 14 delivered meals a week. Klarissa is currently looking for aid providers for pt however is having difficulty finding someone. Klarissa did talk to pt today and will follow up with him on Thursday. D/C orders to be faxed to Klarissa Lorenzana at discharge. Caroline HARRISON updated on home health request. Plan: Home with home health. Continuation of services through [facility]. GUSTAVO Jimenez Pt wishes to return home and states has no concerns with going home at time of discharge. Pt states does not smoke or drink ETOH. CM to follow for home oxygen needs and any further discharge planning/needs. Pt voices no further concerns/needs at this time. Advised pt to ask for CM if any further questions/concerns/needs arise. Voices understanding. PLAN: Tramaine LAGUNAS RN, CM Case Manage
--- NOTE | 2021-03-22 14:35 | CASEMGMT ---
Social Work SW to room to meet with patient for initial assessment. SW introduced self and role at [facility]. Pt voices understanding and consents to assessment at this time. Pt is A/Ox3 at this time and answers all questions appropriately. Laying in bed and does not open eyes but is willing to speak with SW. Care providers, pharmacy, and demographics verified/updated at this time. PCP: Debra Rodriguez Preferred Pharmacy: [facility] Insurance: [facility] Prescription Benefit: yes Living Will/HPOA: Pt does not currently have LW/HCPOA and declines info at this time. LNOK: Diana Luong, Mental Health Wireless Development Manager Living Arrangements: Pt lives at home alone in a one story apartment with laundry in the basement. Pt states he can complete dressing tasks by sitting on the bed. It is very difficult and slow but he can complete. Pt sponge bathes as he is afraid to get into tub. Pt states he does need help with housekeeping and cannot complete stairs to do laundry. Pt does receive home delivered meals but states he cannot eat them because they are too spicy and he eats food cold out of the cans. Transportation: Pt does not drive and his CM from the [facility] provides transportation. DME: States has the following DME: Walker, grab bars shower bench HHC/SNF: no previous SNF. He has had home health in the past. Alcohol: Pt states he drinks only 1 beer a day. Pt confirms he use to drink much more than this and is happy with reduction to 1 beer a day with no plans of stopping. Pt has met with 180 in the past but did go to any programs and has no desire to receive more information. SW spoke with pt regarding discharge plan and pt clearly states he will not go to a SNF. He plans to return home although he does state awareness that he is having difficulty functioning at home. Pt is open to home health care. SW provided a list of [facility] providers including quality and resource use data consistent with the patient's preferred geographic region, medial need and insurance network. Pt refuses to open eyes and look at list. States he doesn't care who comes to help him. With pt permission phone call to Diana Luong CM at [facility]. Diana states pt needs a home health aid and she has been unable to obtain this. She states she is working with [employer]. Phone call to Klarissa Lorenzana at [facility] who is pt employment evaluator/case manager. Pt was on the Passport program and pt changed to the Waiver program on 03/19 and is new to Klarissa. Pt does have a life line and 14 delivered meals a week. Klarissa is currently looking for aid providers for pt however is having difficulty finding someone. Klarissa did talk to pt today and will follow up with him on Thursday. D/C orders to be faxed to Klarissa Lorenzana at discharge. Caroline HARRISON updated on home health request. Plan: Home with home health. Continuation of services through [facility]. GUSTAVO Jimenez
--- NOTE | 2021-03-22 14:49 | CASEMGMT ---
Addendum entered by Carloine Lee 03/22/21 15:20: Pt made aware [facility] able to accept. Addendum entered by Caroline Lee 03/22/21 15:11: TC received from [facility]. They are able to accept pt. Green sheet placed on chart w/instructions for HHC and Direction Home if pt is discharged over the weekend. Original Note: CECE SMITH NOTE: Per Dr Madrigal, pt may be medically ready for discharge by Thursday. Per Anna ROME, pt is agreeable, has been provided w/list of HHC agencies, and has no preference. TC to [facility] and referral made--Awaiting acceptance. Order placed for HHC: SN, PT/OT, WLID, and jose. Tramaine LAGUNAS RN, CM
[2021-03-22] MEDS: Acetaminophen 325 MG Tablet 650 MG PO (22:07)
[2021-03-22] MEDS: Potassium Chloride Oral Tablet 20 MEQ PO (22:08)
[2021-03-22] MEDS: QUEtiapine 100 MG Tablet 300 MG PO (22:08)
[2021-03-23 02:30] VITALS: BP 105/62; PULSE 67; RESP 16; TEMP 36.6; O2SAT 97
[2021-03-23 07:08] LABS: Absolute Lymphocyte Count 1.63 X10^3/uL (0.83-4.51); Absolute Neutrophil Count 3.4 X10^3/uL (2.0-7.7); Basophil# 0.02 X10^3/uL; Basophil% 0.3 % (0-1); Eosinophil# 0.06 X10^3/uL; Hematocrit 24.9 % (40-54); Hemoglobin 8.5 g/dL (13.0-16.5); Lymphocyte # 1.63 X10^3/ul (0.83-4.51); Mean Corp Hgb Conc 34.1 g/dL (32-36); Mean Corpuscular Hgb 35.3 pg (27.0-32.0); Mean Corpuscular Volume 103.3 fL (80-94); Mean Platelet Vol. 9.9 fl (6.2-12.0); Monocyte# 0.69 X10^3/uL; Monocyte% 11.9 % (0-10); NRBC Flagged by Analyzer 0 % (0-5); Neutrophil # 3.39 X10^3/uL (2.7-7.7); Neutrophil % 58.3 % (47-70); POSITIVE COUNT YES; Platelet Count 94 K/mm3 (150-450); RBC Distribution Width CV 15.3 % (11.6-14.6); RBC Distribution Width SD 57.9 fl (35.1-43.9); Red Blood Count 2.41 M/mm3 (4.6-6.2); White Blood Count 5.8 K/mm3 (4.4-11.0)
[2021-03-23 07:35] LABS: ALB/GLOB Ratio 0.3 RATIO (0.9-2.4); AST(SGOT) 171 U/L (15-37); Alanine Aminotransfer ALT/SGPT 36 U/L (16-61); Albumin, Serum 1.3 g/dL (3.2-5.0); Alkaline Phosphatase 173 U/L (45-117); Anion Gap 9 (5-15); BUN 13 mg/dL (7-18); BUN/Creat Ratio 10.2 RATIO (10-20); Calcium,Total 7.2 mg/dL (8.5-10.1); Chloride 106 mmol/L (98-107); Creatinine, Serum 1.28 mg/dL (0.70-1.30); EST Glomerular Filtration Rate 60 mL/min (>60); Est Glom Filt Rate - Afr Amer 73 mL/min (>60); Estimated Creatinine Clearance 63.73 ml/min; Globulin 4.7 g/dL (2.2-4.2); Glucose 95 mg/dL (74-106); Magnesium 1.7 mg/dL (1.6-2.6); Potassium 3.4 mmol/L (3.5-5.1); Sodium Level 131 mmol/L (136-145)
[2021-03-23] MEDS: Folic Acid 1 MG Tablet PO (07:42)
[2021-03-23] MEDS: Thiamine Hydrochloride 100 MG Tablet PO ×2 (07:42→10:47)
--- NOTE | 2021-03-23 07:42 | PN.HOSP_ITS ---
Subjective Subjective Patient seen underwent paracentesis on 03/23/2020 with 1.65 L of ascitic fluid taken. Seen this a.m. patient is requesting to be discharged home Objective Data Objective Data Vital Signs: Vital Signs Temp Pulse Resp BP Pulse Ox 97.8 F 67 16 105/62 97 03/23/21 02:30 03/23/21 02:30 03/23/21 02:30 03/23/21 02:30 03/23/21 02:30 Oxygen Delivery Method [2] Room Air Oxygen Delivery Method [1 ( Room Air Initial Baseline)] Oxygen Delivery Method Room Air Weight: 85 kg Body Mass Index (BMI) 26.4 Intake & Output: Intake and Output for Last 24 Hours 03/21/21 03/22/21 03/23/21 23:59 23:59 23:59 Intake Total 2550 / 2550 Output Total 1650 / 1650 Balance 900 / 900 Lab / Micro Data Result Diagrams: 03/23/21 06:47 03/23/21 06:47 Labs: Laboratory Results - last 24 hr 03/22/21 03/22/21 03/22/21 09:17 12:40 12:40 WBC RBC Hgb 7.3 L Hct 21.1 L MCV MCH MCHC RDW Std Deviation RDW Coeff of William Plt Count MPV Immature Gran % (Auto) Neut % (Auto) Lymph % (Auto) Lincoln % (Auto) Eos % (Auto) Baso % (Auto) Absolute Neuts (auto) Absolute Lymphs (auto) Nucleated RBC % Sodium Potassium Chloride Carbon Dioxide Anion Gap BUN Creatinine Estim Creat Clear Calc Est GFR (MDRD) Af Amer Est GFR (MDRD) Non-Af BUN/Creatinine Ratio Glucose Calcium Magnesium Total Bilirubin AST ALT Alkaline Phosphatase Total Protein Albumin Globulin Albumin/Globulin Ratio Fluid Source OTHER Fluid Color YELLOW Fluid Appearance CLEAR Fluid WBC 0.051 Fluid RBC 40 Fluid Tot Cell Count 0.103 Fld Polynuclear WBCs # 0.005 Fld Polynuclear WBCs % 9.8 Fluid Mononuclear WBCs 0.046 Fld Mononuclear WBCs % 90.2 Fluid Neutrophils 1 Fluid Lymphocytes 9 Fluid Macrophages 80 Fld Mesothelial Cells 10 Fl Pathologist Comment May follow Fluid Glucose 125 H Fluid Total Protein 0.7 Fluid LDH 42 Fluid Comment 2 TNP 03/23/21 03/23/21 06:47 06:47 WBC 5.8 RBC 2.41 L Hgb 8.5 L Hct 24.9 L MCV 103.3 H MCH 35.3 H MCHC 34.1 RDW Std Deviation 57.9 H RDW Coeff of William 15.3 H Plt Count 94 L MPV 9.9 Immature Gran % (Auto) 0.500 Neut % (Auto) 58.3 Lymph % (Auto) 28.0 Lincoln % (Auto) 11.9 H Eos % (Auto) 1.0 Baso % (Auto) 0.3 Absolute Neuts (auto) 3.4 Absolute Lymphs (auto) 1.63 Nucleated RBC % 0 Sodium 131 L Potassium 3.4 L Chloride 106 Carbon Dioxide 16.0 L Anion Gap 9 BUN 13 Creatinine 1.28 Estim Creat Clear Calc 63.73 Est GFR (MDRD) Af Amer 73 Est GFR (MDRD) Non-Af 60 BUN/Creatinine Ratio 10.2 Glucose 95 Calcium 7.2 L Magnesium 1.7 Total Bilirubin 6.90 H AST 171 H ALT 36 Alkaline Phosphatase 173 H Total Protein 6.0 L Albumin 1.3 L Globulin 4.7 H Albumin/Globulin Ratio 0.3 L Fluid Source Fluid Color Fluid Appearance Fluid WBC Fluid RBC Fluid Tot Cell Count Fld Polynuclear WBCs # Fld Polynuclear WBCs % Fluid Mononuclear WBCs Fld Mononuclear WBCs % Fluid Neutrophils Fluid Lymphocytes Fluid Macrophages Fld Mesothelial Cells Fl Pathologist Comment Fluid Glucose Fluid Total Protein Fluid LDH Fluid Comment 2 Radiography Diagnostic Testing: Radiology Impression Paracentesis Ultrasound 03/22/21 08:04 IMPRESSION: Ultrasound guided paracentesis. Electronically Signed: Emmanuel Craig MD at 13:12 EDT , Service support , Abdomen X-Ray 03/22/21 11:55 IMPRESSION: Mild gaseous distention of the stomach. Otherwise general paucity of bowel gas. Electronically Signed: Justina Arellano MD at 14:09 EDT Tel , Service support , Rhythm Strip Rhythm Strip: Sinus Tach Rate: 116 Ectopy: None Physical Exam Narrative GENERAL: cooperative HEENT: Atraumatic; EYES; Anicteric, Normal Conjunctiva NECK; supple, normal thyroid, RESPIRATORY: Diminished to auscultation CARDIOVASCULAR: Regular S1 S2, GI: Abdomen distended dull to percussion : No Renal angle tenderness; EXTREMITIES: edema, no clubbing, MUSCULOSKELETAL: no muscle waisting NEURO: Awake; no lateralizing signs. SKIN: No Rash PSYCH; Flat affect Assessment & Plan Assessment/Plan (1) Inability to walk: PLAN: Patient is a 60-year-old gentleman with history of cirrhosis of the liver who presented with progressive generalized weakness admitted to regular nursing for further management. Patient was found to have markedly elevated distended abdomen consistent with ascites. 1. Ascites ?Secondary to cirrhosis of the liver from chronic alcoholism. Patient admitted to regular nursing floor requested for ultrasound-guided paracentesis with diagnostic work-up requested -03/23/2021 Patient seen underwent paracentesis on 03/23/2020 with 1.65 L of ascitic fluid taken out 2. Physical deconditioning - Requested for PT OT eval and social worker palliative care to assist with discharge planning 3. Acute renal failure ?Do suspect volume depletion despite patient being ascitic. Did order for albumin. Subsequent monitoring of electrolyte ordered -03/23/2021 improvement in patient's kidney function 4. Thrombocytopenia ?Secondary to chronic liver disease monitoring, 5. Cirrhosis of the liver secondary to chronic alcohol use ?Patient presented with ascites management as discussed above 6. Chronic alcohol dependence ?Patient was counseled on cessation 7. Seizure disorder ?Patient is on Keppra 8. Bipolar disorder ?Patient is on Seroquel 9. DVT prophylaxis ?Chemoprophylaxis contraindicated in view of patient's low platelet count 10. Physical deconditioning - Requested for PT OT eval and social worker palliative care to assist with discharge planning Charges/Coding Visit Charges Inpatient E&M: 05340 Subs Hosp L2
[2021-03-23 07:45] VITALS: BP 119/74; PULSE 82; RESP 16; TEMP 36.4; O2SAT 93
[2021-03-23] MEDS: 0.9% Normal Saline 1,000 ML 100 ML IV (09:36)
--- NOTE | 2021-03-23 09:50 | PCM.DC.SUM ---
Providers Date of Admission: 03/22/21 Primary Care Physician: Debra [facility] Reason For Visit: PASQUALE, DEBILITY, ANEMIA Diagnosis Discharge Diagnosis (1) Inability to walk: Status: Acute Code(s): R26.2 - Difficulty in walking, not elsewhere classified Medications at Discharge Home Medications atorvastatin 40 mg PO DAILY 03/26/20 multivitamin 1 tab PO DAILY #90 tab 04/27/20 citalopram 20 mg PO DAILY 12/07/20 cetirizine 10 mg PO DAILY PRN PRN #0 12/14/20 metoprolol succinate 50 mg PO DAILY #0 12/14/20 folic acid 1 mg PO DAILY 03/22/21 mirtazapine 45 mg PO QHS 03/22/21 quetiapine [Seroquel] 300 mg PO QHS 03/22/21 thiamine HCl (vitamin B1) [Vitamin B-1] 100 mg PO DAILY 03/22/21 furosemide [Lasix] 40 mg PO DAILY #60 tab 03/23/21 spironolactone [Aldactone] 25 mg PO DAILY #60 tab 03/23/21 Hospital Course Summary of Care Provided Minutes Spent on Discharge: 35 Hospital Course: Patient is a 60-year-old gentleman with history of cirrhosis of the liver who presented with progressive generalized weakness admitted to regular nursing for further management. Patient was found to have markedly elevated distended abdomen consistent with ascites. 1. Ascites ?Secondary to cirrhosis of the liver from chronic alcoholism. Patient admitted to regular nursing floor requested for ultrasound-guided paracentesis with diagnostic work-up requested -03/23/2021 Patient seen underwent paracentesis on 03/23/2020 with 1.65 L of ascitic fluid taken out -Patient was discharged home on Aldactone and Lasix. 2. Physical deconditioning - Requested for PT OT eval and elementary school social worker to assist with discharge planning 3. Acute renal failure ?Do suspect volume depletion despite patient being ascitic. Did order for albumin. Subsequent monitoring of electrolyte ordered -03/23/2021 improvement in patient's kidney function 4. Thrombocytopenia ?Secondary to chronic liver disease monitoring, 5. Cirrhosis of the liver secondary to chronic alcohol use ?Patient presented with ascites management as discussed above 6. Chronic alcohol dependence ?Patient was counseled on cessation 7. Seizure disorder ?Patient is on Keppra 8. Bipolar disorder ?Patient is on Seroquel 9. DVT prophylaxis ?Chemoprophylaxis contraindicated in view of patient's low platelet count 10. Physical deconditioning - Requested for PT OT eval and elementary school social worker to assist with discharge planning Physical Exam Narrative GENERAL: cooperative HEENT: Atraumatic; EYES; Anicteric, Normal Conjunctiva NECK; supple, normal thyroid, RESPIRATORY: Diminished to auscultation CARDIOVASCULAR: Regular S1 S2, GI: Slightly distended abdomen : No Renal angle tenderness; EXTREMITIES: edema, no clubbing, MUSCULOSKELETAL: no muscle waisting NEURO: Awake; no lateralizing signs. SKIN: No Rash PSYCH; Flat affect ABG / Lab / Microbiology Data Result Diagrams: 03/23/21 06:47 03/23/21 06:47 Laboratory: Laboratory Results - last 24 hr 03/22/21 03/22/21 03/23/21 12:40 12:40 06:47 WBC RBC Hgb Hct MCV MCH MCHC RDW Std Deviation RDW Coeff of William Plt Count MPV Immature Gran % (Auto) Neut % (Auto) Lymph % (Auto) Divide % (Auto) Eos % (Auto) Baso % (Auto) Absolute Neuts (auto) Absolute Lymphs (auto) Nucleated RBC % Sodium 131 L Potassium 3.4 L Chloride 106 Carbon Dioxide 16.0 L Anion Gap 9 BUN 13 Creatinine 1.28 Estim Creat Clear Calc 63.73 Est GFR (MDRD) Af Amer 73 Est GFR (MDRD) Non-Af 60 BUN/Creatinine Ratio 10.2 Glucose 95 Calcium 7.2 L Magnesium 1.7 Total Bilirubin 6.90 H AST 171 H ALT 36 Alkaline Phosphatase 173 H Total Protein 6.0 L Albumin 1.3 L Globulin 4.7 H Albumin/Globulin Ratio 0.3 L Fluid Source OTHER Fluid Color YELLOW Fluid Appearance CLEAR Fluid WBC 0.051 Fluid RBC 40 Fluid Tot Cell Count 0.103 Fld Polynuclear WBCs # 0.005 Fld Polynuclear WBCs % 9.8 Fluid Mononuclear WBCs 0.046 Fld Mononuclear WBCs % 90.2 Fluid Neutrophils 1 Fluid Lymphocytes 9 Fluid Macrophages 80 Fld Mesothelial Cells 10 Fl Pathologist Comment May follow Fluid Glucose 125 H Fluid Total Protein 0.7 Fluid LDH 42 Fluid Comment 2 TNP 03/23/21 06:47 WBC 5.8 RBC 2.41 L Hgb 8.5 L Hct 24.9 L MCV 103.3 H MCH 35.3 H MCHC 34.1 RDW Std Deviation 57.9 H RDW Coeff of William 15.3 H Plt Count 94 L MPV 9.9 Immature Gran % (Auto) 0.500 Neut % (Auto) 58.3 Lymph % (Auto) 28.0 Divide % (Auto) 11.9 H Eos % (Auto) 1.0 Baso % (Auto) 0.3 Absolute Neuts (auto) 3.4 Absolute Lymphs (auto) 1.63 Nucleated RBC % 0 Sodium Potassium Chloride Carbon Dioxide Anion Gap BUN Creatinine Estim Creat Clear Calc Est GFR (MDRD) Af Amer Est GFR (MDRD) Non-Af BUN/Creatinine Ratio Glucose Calcium Magnesium Total Bilirubin AST ALT Alkaline Phosphatase Total Protein Albumin Globulin Albumin/Globulin Ratio Fluid Source Fluid Color Fluid Appearance Fluid WBC Fluid RBC Fluid Tot Cell Count Fld Polynuclear WBCs # Fld Polynuclear WBCs % Fluid Mononuclear WBCs Fld Mononuclear WBCs % Fluid Neutrophils Fluid Lymphocytes Fluid Macrophages Fld Mesothelial Cells Fl Pathologist Comment Fluid Glucose Fluid Total Protein Fluid LDH Fluid Comment 2 Radiography Diagnostic Testing: Radiology Impression Paracentesis Ultrasound 03/22/21 08:04 IMPRESSION: Ultrasound guided paracentesis. Electronically Signed: Emmanuel Craig MD at 13:12 EDT , Service support , Abdomen X-Ray 03/22/21 11:55 IMPRESSION: Mild gaseous distention of the stomach. Otherwise general paucity of bowel gas. Electronically Signed: Justina Arellano MD at 14:09 EDT Tel , Service support , D/C Instructions Discharge Diet: No restrictions Discharge Activity: Return to Normal Activity Call your doctor if you observe: Fever of 101 or Higher, Shortness of breath, Fainting spells and Chest pain Meaningful Use Info Meaningful Use Diagnoses (Choose all that apply): None applicable Discharge Plan Admission Admit Date/Time: 03/22/21 02:03 Primary Reason for Your Visit: Ascites Attending Provider: Chris Madrigal [facility] Orders/Prescriptions Prescriptions: New furosemide [Lasix] 40 mg tablet 40 mg PO DAILY Qty: 60 RF: 0 spironolactone [Aldactone] 25 mg tablet 25 mg PO DAILY Qty: 60 RF: 0 Continued atorvastatin 40 MG tablet 40 mg PO DAILY RF: 0 multivitamin 1 EACH tablet 1 tab PO DAILY Qty: 90 RF: 0 citalopram 20 MG tablet 20 mg PO DAILY RF: 0 cetirizine 10 MG tablet 10 mg PO DAILY PRN PRN (Reason: Allergies) Qty: 0 RF: 0 metoprolol succinate 50 MG tablet extended release 24 hr 50 mg PO DAILY Qty: 0 RF: 0 quetiapine [Seroquel] 300 mg Tablet 300 mg PO QHS RF: 0 thiamine HCl (vitamin B1) [Vitamin B-1] 100 mg Tablet 100 mg PO DAILY RF: 0 mirtazapine 45 mg tablet 45 mg PO QHS RF: 0 folic acid 1 mg Tablet 1 mg PO DAILY RF: 0 Discontinued potassium chloride 20 mEq Tablet Extended Release 20 meq PO DAILY RF: 0 [facility] - In 1 Week Disposition Disposition (needs filled in before D/C Order can be placed): Home Health Service Charges/Coding Visit Charges Inpatient E&M: 84871 Disch Hosp
--- NOTE | 2021-03-23 09:59 | PCM.DC ---
Discharge Instructions Diet Discharge Diet: No restrictions Dressing / Incision Call your doctor if you observe: Fever of 101 or Higher, Shortness of breath, Fainting spells and Chest pain Follow Up Care Test Results: Test results from this visit will be discussed in further detail at your follow-up appointment, if applicable. Discharge Plan Admission Admit Date/Time: 03/22/21 02:03 Primary Reason for Your Visit: Ascites Attending Provider: Chris Madrigal Primary Care Provider: [facility] Debra Renner Discharge Orders/Prescriptions Prescriptions: New furosemide [Lasix] 40 mg tablet 40 mg PO DAILY Qty: 60 RF: 0 spironolactone [Aldactone] 25 mg tablet 25 mg PO DAILY Qty: 60 RF: 0 Continued atorvastatin 40 MG tablet 40 mg PO DAILY RF: 0 multivitamin 1 EACH tablet 1 tab PO DAILY Qty: 90 RF: 0 citalopram 20 MG tablet 20 mg PO DAILY RF: 0 cetirizine 10 MG tablet 10 mg PO DAILY PRN PRN (Reason: Allergies) Qty: 0 RF: 0 metoprolol succinate 50 MG tablet extended release 24 hr 50 mg PO DAILY Qty: 0 RF: 0 quetiapine [Seroquel] 300 mg Tablet 300 mg PO QHS RF: 0 thiamine HCl (vitamin B1) [Vitamin B-1] 100 mg Tablet 100 mg PO DAILY RF: 0 mirtazapine 45 mg tablet 45 mg PO QHS RF: 0 folic acid 1 mg Tablet 1 mg PO DAILY RF: 0 Discontinued potassium chloride 20 mEq Tablet Extended Release 20 meq PO DAILY RF: 0 [facility] 1 Week Disposition Disposition (needs filled in before D/C Order can be placed): Home Health Service
[2021-03-23] MEDS: Potassium Chloride Oral Tablet 20 MEQ PO (10:45)
[2021-03-23] MEDS: Potassium Chloride Oral Tablet 20 MEQ 40 MEQ PO (10:45)
[2021-03-23] MEDS: Citalopram 20 MG Tablet PO (10:46)
[2021-03-23] MEDS: levETIRAcetam 500 MG Tablet PO (10:46)
[2021-03-23 10:47] VITALS: PULSE 82
[2021-03-23] MEDS: Metoprolol(XL)Succ 50 MG Tablet PO (10:47)
[2021-03-25 13:26] LABS: Pathologist Comment/Body Fluid Reviewed
== END 2021-03-23 13:00 | disposition home health service (06) | DRG 433 ==
LOC: ED 01:34 → MS3 02:48
PROVIDERS: Admitting Provider Internal Medicine; Emergency Provider Emergency Medicine; Visit Provider Internal Medicine
DX: K70.31 Alcoholic cirrhosis of liver with ascites (principal); N17.9 Acute kidney failure, unspecified; E87.1 Hypo-osmolality and hyponatremia; F10.20 Alcohol dependence, uncomplicated; K70.11 Alcoholic hepatitis with ascites; G40.909 Epilepsy, unspecified, not intractable, without status epilepticus; F31.9 Bipolar disorder, unspecified; D69.6 Thrombocytopenia, unspecified; R19.7 Diarrhea, unspecified; F41.9 Anxiety disorder, unspecified; Z79.899 Other long term (current) drug therapy; F17.210 Nicotine dependence, cigarettes, uncomplicated; E87.6 Hypokalemia; E88.09 Other disorders of plasma-protein metabolism, not elsewhere classified; Y90.2 Blood alcohol level of 40-59 mg/100 ml; Z66 Do not resuscitate; R53.81 Other malaise; D64.9 Anemia, unspecified
CPT/HCPCS: 36415; 49083; 71045; 74019; 80053; 82077; 82945; 83615; 83735; 83880; 84132; 84157; 84484; 85014; 85018; 85025; 85610; 87493; 87506; 88108; 88305; 88313; 89050; 93005; 97110; 97162; 97166; 97530; 97535; 97802; 99284; 99285; 99406; J7030; A4216; J1940

== ENCOUNTER 2021-03-25 10:51 | Emergency (ER) | payer MEDICARE, MEDICAID, SELFPAY ==
[2021-03-22 02:36] VITALS: BMI 26.4
[2021-03-25 10:53] VITALS: BP 139/94; PULSE 98; RESP 15; TEMP 36.3; O2SAT 99; BMI 27.3
--- NOTE | 2021-03-25 10:56 | ED.RN ---
BRUISING NOTED TO BACK AND BUTTOCKS WHEN PT WAS PLACED ON THE BED PAIN. REDNESS TO RECTAL AREA.
--- NOTE | 2021-03-25 11:06 | CT_ITS ---
STUDY: CT BRAIN WITHOUT CONTRAST REASON FOR EXAM: Male, 60 years old. Fall, head trauma, altered mental status RADIATION DOSAGE (If Supplied By Facility): CTDIvol = ( 44.99 ) mGy, DLP = ( 796.11 ) mGycm TECHNIQUE: Transaxial CT imaging of the brain was performed without administration of intravenous contrast material. Individualized dose optimization techniques were used for this CT. COMPARISON: Comparison is made with prior study dated 04/20/2020. FINDINGS: Normal soft tissue structures. Normal calvarium. There is mild cerebral atrophy with widening of the extra-axial spaces and ventricular dilatation. There are areas of decreased attenuation within the white matter tracts of the supratentorial brain, consistent with microvascular disease changes. Normal basal ganglia and thalami. Normal brainstem. There is mild cerebellar atrophy. There is no intracranial hemorrhage. There are no findings of an acute ischemic infarction. There is a 1.2 cm polyp or cyst along the posterior medial aspect of the left maxillary sinus. CT/Brain/Head without Contrast IMPRESSION: Chronic involutional changes of the brain. Electronically Signed: Emmanuel Craig MD at 13:02 EDT , Service support ,
--- NOTE | 2021-03-25 11:08 | EKG12_ITS ---
Test Reason : Blood Pressure : / mmHG Vent. Rate : 089 BPM Atrial Rate : 089 BPM P-R Int : 136 ms QRS Dur : 088 ms QT Int : 376 ms P-R-T Axes : 021 -06 042 degrees QTc Int : 457 ms Normal sinus rhythm Low voltage QRS Possible Inferior infarct (cited on or before 22-MAR-2021) Abnormal ECG Confirmed by WALTER GARCIA, HIRO ([id number]), digital editor TYRONE CALERO ([id number]) on 03/29/2021 8:13:05 AM Referred By: YAHIR Confirmed By:HIRO WATSON MD
--- NOTE | 2021-03-25 11:11 | EDS_ITS ---
HPI History of Present Illness Chief Complaint: Weakness Informant: patient Onset/Context/Timing Onset: Days Context: Gradual Onset Timing: Continuous Quality: Weakness unable to rise from couch for the past 2 days Location: Residents Current Severity: Severe Maximum Severity: Severe Worsened by: Unknown Relieved by: Nothing Associated Symptoms Associated Symptoms: Patient has altered mental status. Narrative Narrative: Patient is a 60-year-old male who looks older than reported age. He has significant medical problems mostly related to his alcoholic liver disease with jaundice, ascites and possible coagulopathy. He is not a good informant. He is he is slow with regards to mentation. There is evidence of head trauma. He has been incontinent of urine and stool for the last 2 days. He has fallen. He does have bruises. He states he does not feel well and has generalized weakness. He was able to tell me that he had a paracentesis performed 2 weeks ago and 2 L of fluid was removed. He continues to drink. He is a smoker. He lives alone. Prior similar symptoms: Yes Recent Illness/Hospitalization: Yes [facility] Medical History Anxiety Ascites Bipolar disorder Cirrhosis Hepatitis Seizure Home Medications atorvastatin 40 mg PO DAILY 03/26/20 [History Last Taken 12/06/20] multivitamin 1 tab PO DAILY #90 tab 04/27/20 [Rx Last Taken 12/06/20] citalopram 20 mg PO DAILY 12/07/20 [History Last Taken 12/06/20] cetirizine 10 mg PO DAILY PRN PRN #0 12/14/20 [Rx Last Taken 12/06/20] metoprolol succinate 50 mg PO DAILY #0 12/14/20 [Rx Last Taken 12/06/20] folic acid 1 mg PO DAILY 03/22/21 [History Last Taken Unknown] mirtazapine 45 mg PO QHS 03/22/21 [History Last Taken Unknown] quetiapine [Seroquel] 300 mg PO QHS 03/22/21 [History Last Taken Unknown] thiamine HCl (vitamin B1) [Vitamin B-1] 100 mg PO DAILY 03/22/21 [History Last Taken Unknown] furosemide [Lasix] 40 mg PO DAILY #60 tab 03/23/21 [Rx Last Taken Unknown] spironolactone [Aldactone] 25 mg PO DAILY #60 tab 03/23/21 [Rx Last Taken Unknown] Allergy/AdvReac Type Severity Reaction Status Date / Time lisinopril Allergy Angioedema Verified 03/25/21 10:52 peanut Allergy Hives Verified 03/25/21 10:52 Family History Father Myocardial infarction Mother Stomach cancer Social History (Updated 03/25/21 @ 11:[address] Hayden Le MD) household members: none housing: apartment Smoking Status: Current every day smoker tobacco type: cigarettes alcohol intake: current alcohol intake frequency: 0-2 drinks per day substance use type: marijuana ROS ROS ED Constitutional Constitutional ED: Denies chills, fever(s), subjective or sweats Eyes Eyes: Denies blurry vision or change in vision ENT ENT ED: Denies ear pain, rhinorrhea or sore throat Cardiovascular Cardiovascular: Denies chest pain, palpitations or racing heartbeat Respiratory/Chest Respiratory/Chest: Denies cough or dyspnea EXAM Physical Exam Const Vital Signs: 03/25/21 10:53 03/25/21 10:55 03/25/21 13:53 Temperature 97.4 F L 97.8 F Temperature Source Temporal Temporal Pulse Rate 98 98 Respiratory Rate 15 15 Respiratory Effort Non-Labored Blood Pressure 139/94 H 152/83 H Blood Pressure Mean 109 106 Pulse Ox 99 100 Oxygen Delivery Method Room Air Room Air [facility] Lab Data Attestation: I reviewed the patient's lab results. Lab results narrative: Urine is positive for nitrites and bacteria on cath specimen. This is suggestive of a urinary tract infection. Culture was sent and he was treated with 1 g of Rocephin. Ammonia is elevated as well. His bilirubin is elevated but is always elevated. Will page hospitalist for admission Patient has 2 sirs criteria with normal lactate and no organ dysfunction. Therefore, we will not obtain blood cultures. Labs: Laboratory Results - last 24 hr 03/25/21 03/25/21 03/25/21 11:35 11:35 11:35 WBC Cancelled Corrected WBC Cancelled RBC Cancelled Hgb Cancelled Hct Cancelled MCV Cancelled MCH Cancelled MCHC Cancelled RDW Std Deviation Cancelled RDW Coeff of William Cancelled Plt Count Cancelled MPV Cancelled Immature Gran % (Auto) Cancelled Neut % (Auto) Cancelled Lymph % (Auto) Cancelled [place] % (Auto) Cancelled Eos % (Auto) Cancelled Baso % (Auto) Cancelled Absolute Neuts (auto) Cancelled Absolute Lymphs (auto) Cancelled Total Counted Cancelled Neutrophils % (Manual) Cancelled Band Neutrophils % Cancelled Lymphocytes % (Manual) Cancelled Monocytes % (Manual) Cancelled Eosinophils % (Manual) Cancelled Basophils % (Manual) Cancelled Metamyelocytes % Cancelled Myelocytes % Cancelled Promyelocytes % Cancelled Blast Cells % Cancelled Plasma Cell % (Manual) Cancelled Other Cells % Cancelled Nucleated RBC % Cancelled Nucleated RBCs/100 WBC Cancelled Differential Comment Cancelled Diff Path Review Cancelled Hypersegmented Neuts Cancelled Atypical Lymphocytes Cancelled Reactive Lymphocytes Cancelled Smudge Cells Cancelled Toxic Granulation Cancelled Toxic Vacuolation Cancelled Dohle Bodies Cancelled Lois Rods Cancelled Platelet Estimate Cancelled Plt Morphology Comment Cancelled RBC Morphology Cancelled Polychromasia Cancelled Hypochromasia Cancelled Poikilocytosis Cancelled Basophilic Stippling Cancelled Anisocytosis Cancelled Microcytosis Cancelled Macrocytosis Cancelled Spherocytes Cancelled Sickle Cells Cancelled Target Cells Cancelled Tear Drop Cells Cancelled Ovalocytes Cancelled Stomatocytes Cancelled [place] Bodies Cancelled [place] Cells Cancelled Bite Cells Cancelled Crenated Cell Cancelled Acanthocytes (Spur) Cancelled Rouleaux Cancelled Schistocytes Cancelled PT 19.3 H INR 1.7 APTT 32.1 Sodium 134 L Potassium 4.0 Chloride 105 Carbon Dioxide 17.0 L Anion Gap 12 BUN 12 Creatinine 0.68 L Estim Creat Clear Calc 119.96 Est GFR (MDRD) Af Amer 153 Est GFR (MDRD) Non-Af 126 BUN/Creatinine Ratio 17.8 Glucose 114 H Lactic Acid Calcium 8.1 L Total Bilirubin 7.60 H AST 168 H ALT 46 Alkaline Phosphatase 195 H Ammonia Total Protein 6.9 Albumin 1.4 L Globulin 5.5 H Albumin/Globulin Ratio 0.3 L Urine Color Urine Clarity Urine pH Ur Specific [place] Urine Protein Urine Glucose (UA) Urine Ketones Urine Occult Blood Urine Nitrite Urine Bilirubin Urine Urobilinogen Ur Leukocyte Esterase Urine RBC Urine WBC Ur Squamous Epith Cells Urine Bacteria Hyaline Casts Urine Mucus 03/25/21 03/25/21 03/25/21 11:35 11:35 11:35 WBC 12.2 H Corrected WBC RBC 2.75 L Hgb 9.6 L Hct 28.5 L MCV 103.6 H MCH 34.9 H MCHC 33.7 RDW Std Deviation 59.5 H RDW Coeff of William 16.0 H Plt Count 145 L MPV 10.5 Immature Gran % (Auto) 0.700 Neut % (Auto) 72.0 H Lymph % (Auto) 15.8 L [place] % (Auto) 11.1 H Eos % (Auto) 0.2 Baso % (Auto) 0.2 Absolute Neuts (auto) 8.8 H Absolute Lymphs (auto) 1.93 Total Counted Neutrophils % (Manual) Band Neutrophils % Lymphocytes % (Manual) Monocytes % (Manual) Eosinophils % (Manual) Basophils % (Manual) Metamyelocytes % Myelocytes % Promyelocytes % Blast Cells % Plasma Cell % (Manual) Other Cells % Nucleated RBC % 0 Nucleated RBCs/100 WBC Differential Comment Diff Path Review Hypersegmented Neuts Atypical Lymphocytes Reactive Lymphocytes Smudge Cells Toxic Granulation Toxic Vacuolation Dohle Bodies Lois Rods Platelet Estimate Plt Morphology Comment RBC Morphology Polychromasia Hypochromasia Poikilocytosis Basophilic Stippling Anisocytosis Microcytosis Macrocytosis Spherocytes Sickle Cells Target Cells Tear Drop Cells Ovalocytes Stomatocytes [place] Bodies [place] Cells Bite Cells Crenated Cell Acanthocytes (Spur) Rouleaux Schistocytes PT INR APTT Sodium Potassium Chloride Carbon Dioxide Anion Gap BUN Creatinine Estim Creat Clear Calc Est GFR (MDRD) Af Amer Est GFR (MDRD) Non-Af BUN/Creatinine Ratio Glucose Lactic Acid 1.7 Calcium Total Bilirubin AST ALT Alkaline Phosphatase Ammonia 63.0 H Total Protein Albumin Globulin Albumin/Globulin Ratio Urine Color Urine Clarity Urine pH Ur Specific [place] Urine Protein Urine Glucose (UA) Urine Ketones Urine Occult Blood Urine Nitrite Urine Bilirubin Urine Urobilinogen Ur Leukocyte Esterase Urine RBC Urine WBC Ur Squamous Epith Cells Urine Bacteria Hyaline Casts Urine Mucus 03/25/21 03/25/21 12:05 13:44 WBC Cancelled Corrected WBC Cancelled RBC Cancelled Hgb Cancelled Hct Cancelled MCV Cancelled MCH Cancelled MCHC Cancelled RDW Std Deviation Cancelled RDW Coeff of William Cancelled Plt Count Cancelled MPV Cancelled Immature Gran % (Auto) Cancelled Neut % (Auto) Cancelled Lymph % (Auto) Cancelled [place] % (Auto) Cancelled Eos % (Auto) Cancelled Baso % (Auto) Cancelled Absolute Neuts (auto) Cancelled Absolute Lymphs (auto) Cancelled Total Counted Cancelled Neutrophils % (Manual) Cancelled Band Neutrophils % Cancelled Lymphocytes % (Manual) Cancelled Monocytes % (Manual) Cancelled Eosinophils % (Manual) Cancelled Basophils % (Manual) Cancelled Metamyelocytes % Cancelled Myelocytes % Cancelled Promyelocytes % Cancelled Blast Cells % Cancelled Plasma Cell % (Manual) Cancelled Other Cells % Cancelled Nucleated RBC % Cancelled Nucleated RBCs/100 WBC Cancelled Differential Comment Cancelled Diff Path Review Cancelled Hypersegmented Neuts Cancelled Atypical Lymphocytes Cancelled Reactive Lymphocytes Cancelled Smudge Cells Cancelled Toxic Granulation Cancelled Toxic Vacuolation Cancelled Dohle Bodies Cancelled Lois Rods Cancelled Platelet Estimate Cancelled Plt Morphology Comment Cancelled RBC Morphology Cancelled Polychromasia Cancelled Hypochromasia Cancelled Poikilocytosis Cancelled Basophilic Stippling Cancelled Anisocytosis Cancelled Microcytosis Cancelled Macrocytosis Cancelled Spherocytes Cancelled Sickle Cells Cancelled Target Cells Cancelled Tear Drop Cells Cancelled Ovalocytes Cancelled Stomatocytes Cancelled [place] Bodies Cancelled Robert Cells Cancelled Bite Cells Cancelled Crenated Cell Cancelled Acanthocytes (Spur) Cancelled Rouleaux Cancelled Schistocytes Cancelled PT INR APTT Sodium Potassium Chloride Carbon Dioxide Anion Gap BUN Creatinine Estim Creat Clear Calc Est GFR (MDRD) Af Amer Est GFR (MDRD) Non-Af BUN/Creatinine Ratio Glucose Lactic Acid Calcium Total Bilirubin AST ALT Alkaline Phosphatase Ammonia Total Protein Albumin Globulin Albumin/Globulin Ratio Urine Color Roxy Urine Clarity Sl. Cloudy Urine pH 6.0 Ur Specific [place] 1.015 Urine Protein 30 H Urine Glucose (UA) Normal Urine Ketones 50 H Urine Occult Blood 10 H Urine Nitrite Positive H Urine Bilirubin 6 H Urine Urobilinogen 8 H Ur Leukocyte Esterase 25 H Urine RBC 0-5 SEEN Urine WBC 0-5 SEEN Ur Squamous Epith Cells 0-5 SEEN Urine Bacteria 1+ Hyaline Casts 0-5 SEEN Urine Mucus 0 SEEN Radiography Chest X-Ray - ED: 1 View, Read by ED Physician, Heart, Mediastinum, Bony Structures, No Acute Disease, Chronic Changes and - (Limited inspiratory volume. Scarring noted on the left.) Diagnostic Testing: Radiology Impression Brain CT 03/25/21 11:06 IMPRESSION: Chronic involutional changes of the brain. Electronically Signed: Emmanuel Craig MD at 13:02 EDT , Service support , Chest X-Ray 03/25/21 12:30 IMPRESSION: No acute abnormality is seen. Electronically Signed: Emmanuel Craig MD at 12:54 EDT , Service support , Discharge Plan Dx/Rx/DC Orders Clinical Impression: Urinary tract infection, Jaundice, Encephalopathy, hepatic, Chronic alcoholic liver disease, Sepsis Disposition Disposition: Acute Care [facility]
[2021-03-25 12:01] LABS: ALB/GLOB Ratio 0.3 RATIO (0.9-2.4); AST(SGOT) 168 U/L (15-37); Alanine Aminotransfer ALT/SGPT 46 U/L (16-61); Albumin, Serum 1.4 g/dL (3.2-5.0); Alkaline Phosphatase 195 U/L (45-117); Anion Gap 12 (5-15); BUN 12 mg/dL (7-18); BUN/Creat Ratio 17.8 RATIO (10-20); Calcium,Total 8.1 mg/dL (8.5-10.1); Chloride 105 mmol/L (98-107); Creatinine, Serum 0.68 mg/dL (0.70-1.30); EST Glomerular Filtration Rate 126 mL/min (>60); Est Glom Filt Rate - Afr Amer 153 mL/min (>60); Estimated Creatinine Clearance 119.96 ml/min; Globulin 5.5 g/dL (2.2-4.2); Glucose 114 mg/dL (74-106); Protein, Total 6.9 g/dL (6.4-8.2); Sodium Level 134 mmol/L (136-145)
[2021-03-25 12:16] LABS: Lactic Acid 1.7 mmol/L (0.4-1.9)
--- NOTE | 2021-03-25 12:30 | RAD_ITS ---
STUDY: X-RAY CHEST REASON FOR EXAM: Male, 60 years old. Tachypnea and rales TECHNIQUE: Single AP portable view of the chest. COMPARISON: Comparison is made with prior examination dated 03/22/2021. FINDINGS: EKG electrodes are seen. The lungs are clear and expanded. There is no demonstrated pleural abnormality. Normal size heart. Normal mediastinum and krista. Normal visualized pulmonary arteries. There is atherosclerotic tortuosity of the aortic arch and descending thoracic aorta. Normal visualized thoracic spine. Normal visualized ribs, clavicles, and shoulders. There is no demonstrated abnormality of the visualized soft tissue structures of the upper abdomen. RAD/Chest 1 View (Portable) IMPRESSION: No acute abnormality is seen. Electronically Signed: Emmanuel Craig MD at 12:54 EDT , Service support ,
[2021-03-25 13:05] LABS: International Normalized Ratio 1.7; Partial Thromboplast Time 32.1 Seconds (24.1-36.2); Prothrombin Time (Protime)PT. 19.3 SECONDS (11.7-14.9)
[2021-03-25 13:45] LABS: Absolute Lymphocyte Count 1.93 X10^3/uL (0.83-4.51); Absolute Neutrophil Count 8.8 X10^3/uL (2.0-7.7); Basophil# 0.02 X10^3/uL; Basophil% 0.2 % (0-1); Eosinophil# 0.03 X10^3/uL; Eosinophils% 0.2 % (0-5); Hematocrit 28.5 % (40-54); Hemoglobin 9.6 g/dL (13.0-16.5); Lymphocyte # 1.93 X10^3/ul (0.83-4.51); Lymphocyte % 15.8 % (19-41); Mean Corp Hgb Conc 33.7 g/dL (32-36); Mean Corpuscular Hgb 34.9 pg (27.0-32.0); Mean Corpuscular Volume 103.6 fL (80-94); Mean Platelet Vol. 10.5 fl (6.2-12.0); Monocyte# 1.35 X10^3/uL; Monocyte% 11.1 % (0-10); NRBC Flagged by Analyzer 0 % (0-5); Neutrophil # 8.78 X10^3/uL (2.7-7.7); Platelet Count 145 K/mm3 (150-450); RBC Distribution Width SD 59.5 fl (35.1-43.9); Red Blood Count 2.75 M/mm3 (4.6-6.2); White Blood Count 12.2 K/mm3 (4.4-11.0)
[2021-03-25 13:53] VITALS: BP 152/83; PULSE 98; RESP 15; TEMP 36.6; O2SAT 100
[2021-03-25 14:04] LABS: Mucous, Urine 0 SEEN /hpf (<or=2+)
[2021-03-25 14:05] LABS: Color, Urine Amber (Yellow); Glucose, Dipstick Normal (Normal); Ketone-Dipstick 50 mg/dl (Negative); Leukocyte Esterase-Dipstick 25 /ul (Negative); Nitrite-Dipstick Positive (Negative); Occult Blood-Urine 10 /ul (Negative); Protein-Dipstick 30 mg/dl (Negative); Specific Gravity, Urine 1.015 (1.002-1.030); Urine Clarity Sl. Cloudy (Clear); Urine Urobilinogen 8 mg/dl (Normal)
[2021-03-25 14:09] LABS: Urine Bilirubin Dipstick 6 mg/dL (Negative)
[2021-03-25 14:12] LABS: Bacteria 1+ /hpf (None Seen); Red Blood Cells-Urine 0-5 SEEN /hpf (0-5); Squamous Epithelial Cells - UA 0-5 SEEN /hpf (0-5); White Blood Cells 0-5 SEEN /hpf (0-5)
[2021-03-25 14:13] LABS: Hyaline Cast 0-5 SEEN /lpf (0-5)
--- NOTE | 2021-03-25 14:39 | NURSING ---
MED SURG [place] UTI, ENCEPHALOPATHY, ALCOHOL LIVER DISEASE
--- NOTE | 2021-03-25 15:14 | CASEMGMT ---
CECE SMITH Discharge Follow Up Phone Call: LACE: 13 Strata:3 Call Date: NA Discharge Date: 03.23.21 Time of Call:NA Duration:NA Admitting Dx:weakness CECE SMITH noted pt was in [facility] ER when attempting to make follow up phone call. Pt is being admitted at this time. Phone call not attempted.
[2021-03-25] MEDS: Ceftriaxone 1 GM/50 ML BAG IV (15:17)
[2021-03-25 15:32] VITALS: BP 161/89; PULSE 96; RESP 13; O2SAT 99
[2021-03-25 15:54] VITALS: BP 161/89; PULSE 99; RESP 13; TEMP 36.6; O2SAT 99
--- NOTE | 2021-03-25 16:01 | CON.PCM.HO_ITS ---
Assessment & Plan Assessment/Plan (1) Debility: PLAN: 1. Debility * Patient had fallen. She he is not interested in being brought in and evaluated by therapy nor interested in going to a [facility] facility. He states that he already has dependency case manager as well as an aide coming to his house. He is very anxious to go home so that he can care for his dogs. He does understand that he is at higher risk of further falls and worsen injury such as hip fractures or worse. But he insists on going home. Did inform the patient myself that he will be leaving AGAINST MEDICAL ADVICE. 2. Abnormal urinalysis * Patient has positive urine nitrates and 25 leuk esterase, however only 0-5 white blood cells. Therefore this does not indicate a urinary tract infection and I do not advise antibiotics 3. Cirrhosis * Patient has an INR of 1.7 * MELD score 20 * Still actively drinking though he states that he drinks beer every 1 to 2 days. * Patient states that he has a follow-up appointment with his mumps developer in [facility] coming up. Patient can be admitted if he does change his mind. Discussed with Dr. Le and advised him of the patient's decision to leave AGAINST MEDICAL ADVICE. HPI Consult Data Date of Consult: 03/25/21 HPI Narrative HPI Narrative: HERB RICHARDS, is a 60 M who presents after a fall at home. Patient was found to be very jaundiced, confused with an ammonia level of 63 and concern for urinary tract infection. The hospitalist service was contacted for admission. Discussed with the patient to states he just weak and fell. He did state, however, that he does not want to be admitted and wants to go home so he can take care of his dogs. I did talk with him about being evaluated by therapy and seeing if he be a can for [facility] facility. He states that he is not interested in any of that and wishes to go home. He understands that he is a risk for further falls and potential injury, such as hip fractures but wishes to go home. He on my assessment, was alert and oriented x3. [facility] Medical History Anxiety Ascites Bipolar disorder Cirrhosis Hepatitis Seizure Home Medications atorvastatin 40 mg PO DAILY 03/26/20 [History Last Taken 12/06/20] citalopram 20 mg PO DAILY 12/07/20 [History Last Taken 12/06/20] cetirizine 10 mg PO DAILY PRN PRN #0 12/14/20 [Rx Last Taken 12/06/20] metoprolol succinate 50 mg PO DAILY #0 12/14/20 [Rx Last Taken 12/06/20] folic acid 1 mg PO DAILY 03/22/21 [History Last Taken Unknown] mirtazapine 45 mg PO QHS 03/22/21 [History Last Taken Unknown] quetiapine [Seroquel] 300 mg PO QHS 03/22/21 [History Last Taken Unknown] thiamine HCl (vitamin B1) [Vitamin B-1] 100 mg PO DAILY 03/22/21 [History Last Taken Unknown] cephalexin 500 mg PO Q8 #21 capsule 03/25/21 [Rx Last Taken Unknown] cephalexin 500 mg PO Q8 #21 capsule 03/25/21 [Rx Last Taken Unknown] cholecalciferol (vitamin D3) 1,250 mcg PO MO 03/25/21 [History Last Taken Unknown] furosemide [Lasix] 40 mg PO DAILY 03/25/21 [History Last Taken Unknown] lactulose 10 g PO DAILY #480 ml 03/25/21 [Rx Last Taken Unknown] lactulose 15 ml PO DAILY #480 ml 03/25/21 [Rx Last Taken Unknown] levetiracetam 500 mg PO BID 03/25/21 [History Last Taken Unknown] magnesium oxide 400 mg PO DAILY 03/25/21 [History Last Taken Unknown] multivitamin 1 tab PO DAILY 03/25/21 [History Last Taken Unknown] spironolactone [Aldactone] 25 mg PO DAILY 03/25/21 [History Last Taken Unknown] Allergy/AdvReac Type Severity Reaction Status Date / Time lisinopril Allergy Angioedema Verified 03/25/21 10:52 peanut Allergy Hives Verified 03/25/21 10:52 Family History Father Myocardial infarction Mother Stomach cancer Social History household members: none housing: apartment Smoking Status: Current every day smoker tobacco type: cigarettes alcohol intake: current alcohol intake frequency: 0-2 drinks per day substance use type: marijuana ROS ROS Narrative All review of systems were negative except as mentioned above in the history of present illness and the other review of systems. Jaundiced. Following. States that he is trying wean himself off of the walker. Physical Exam Const alert and oriented x3 HEENT normocephalic and moist oral mucous membranes Eyes Eyes Narrative: Icterus Resp normal respiratory effort, no use of accessory muscles and clear to auscultation bilaterally Cardio regular rate, regular rhythm, S1 normal heart sound and S2 normal heart sound GI normal to inspection, nondistended, normoactive bowel sounds GI Narrative: Distended. Extremity Extremity Narrative: +1 lower extremity edema Skin Skin Narrative: Jaundice Neuro oriented x3 Sensorium / Orientation: awake and alert Lab / Micro Data Result Diagrams: 03/25/21 11:35 03/25/21 11:35 Labs: Laboratory Results - last 24 hr 03/25/21 03/25/21 03/25/21 11:35 11:35 11:35 WBC Cancelled Corrected WBC Cancelled RBC Cancelled Hgb Cancelled Hct Cancelled MCV Cancelled MCH Cancelled MCHC Cancelled RDW Std Deviation Cancelled RDW Coeff of William Cancelled Plt Count Cancelled MPV Cancelled Immature Gran % (Auto) Cancelled Neut % (Auto) Cancelled Lymph % (Auto) Cancelled Mcclain % (Auto) Cancelled Eos % (Auto) Cancelled Baso % (Auto) Cancelled Absolute Neuts (auto) Cancelled Absolute Lymphs (auto) Cancelled Total Counted Cancelled Neutrophils % (Manual) Cancelled Band Neutrophils % Cancelled Lymphocytes % (Manual) Cancelled Monocytes % (Manual) Cancelled Eosinophils % (Manual) Cancelled Basophils % (Manual) Cancelled Metamyelocytes % Cancelled Myelocytes % Cancelled Promyelocytes % Cancelled Blast Cells % Cancelled Plasma Cell % (Manual) Cancelled Other Cells % Cancelled Nucleated RBC % Cancelled Nucleated RBCs/100 WBC Cancelled Differential Comment Cancelled Diff Path Review Cancelled Hypersegmented Neuts Cancelled Atypical Lymphocytes Cancelled Reactive Lymphocytes Cancelled Smudge Cells Cancelled Toxic Granulation Cancelled Toxic Vacuolation Cancelled Dohle Bodies Cancelled Lois Rods Cancelled Platelet Estimate Cancelled Plt Morphology Comment Cancelled RBC Morphology Cancelled Polychromasia Cancelled Hypochromasia Cancelled Poikilocytosis Cancelled Basophilic Stippling Cancelled Anisocytosis Cancelled Microcytosis Cancelled Macrocytosis Cancelled Spherocytes Cancelled Sickle Cells Cancelled Target Cells Cancelled Tear Drop Cells Cancelled Ovalocytes Cancelled Stomatocytes Cancelled [place] Bodies Cancelled Rogers Cells Cancelled Bite Cells Cancelled Crenated Cell Cancelled Acanthocytes (Spur) Cancelled Rouleaux Cancelled Schistocytes Cancelled PT 19.3 H INR 1.7 APTT 32.1 Sodium 134 L Potassium 4.0 Chloride 105 Carbon Dioxide 17.0 L Anion Gap 12 BUN 12 Creatinine 0.68 L Estim Creat Clear Calc 119.96 Est GFR (MDRD) Af Amer 153 Est GFR (MDRD) Non-Af 126 BUN/Creatinine Ratio 17.8 Glucose 114 H Lactic Acid Calcium 8.1 L Total Bilirubin 7.60 H AST 168 H ALT 46 Alkaline Phosphatase 195 H Ammonia Total Protein 6.9 Albumin 1.4 L Globulin 5.5 H Albumin/Globulin Ratio 0.3 L Urine Color Urine Clarity Urine pH Ur Specific [place] Urine Protein Urine Glucose (UA) Urine Ketones Urine Occult Blood Urine Nitrite Urine Bilirubin Urine Urobilinogen Ur Leukocyte Esterase Urine RBC Urine WBC Ur Squamous Epith Cells Urine Bacteria Hyaline Casts Urine Mucus 03/25/21 03/25/21 03/25/21 11:35 11:35 11:35 WBC 12.2 H Corrected WBC RBC 2.75 L Hgb 9.6 L Hct 28.5 L MCV 103.6 H MCH 34.9 H MCHC 33.7 RDW Std Deviation 59.5 H RDW Coeff of William 16.0 H Plt Count 145 L MPV 10.5 Immature Gran % (Auto) 0.700 Neut % (Auto) 72.0 H Lymph % (Auto) 15.8 L Mcclain % (Auto) 11.1 H Eos % (Auto) 0.2 Baso % (Auto) 0.2 Absolute Neuts (auto) 8.8 H Absolute Lymphs (auto) 1.93 Total Counted Neutrophils % (Manual) Band Neutrophils % Lymphocytes % (Manual) Monocytes % (Manual) Eosinophils % (Manual) Basophils % (Manual) Metamyelocytes % Myelocytes % Promyelocytes % Blast Cells % Plasma Cell % (Manual) Other Cells % Nucleated RBC % 0 Nucleated RBCs/100 WBC Differential Comment Diff Path Review Hypersegmented Neuts Atypical Lymphocytes Reactive Lymphocytes Smudge Cells Toxic Granulation Toxic Vacuolation Dohle Bodies Lois Rods Platelet Estimate Plt Morphology Comment RBC Morphology Polychromasia Hypochromasia Poikilocytosis Basophilic Stippling Anisocytosis Microcytosis Macrocytosis Spherocytes Sickle Cells Target Cells Tear Drop Cells Ovalocytes Stomatocytes [place] Bodies Robert Cells Bite Cells Crenated Cell Acanthocytes (Spur) Rouleaux Schistocytes PT INR APTT Sodium Potassium Chloride Carbon Dioxide Anion Gap BUN Creatinine Estim Creat Clear Calc Est GFR (MDRD) Af Amer Est GFR (MDRD) Non-Af BUN/Creatinine Ratio Glucose Lactic Acid 1.7 Calcium Total Bilirubin AST ALT Alkaline Phosphatase Ammonia 63.0 H Total Protein Albumin Globulin Albumin/Globulin Ratio Urine Color Urine Clarity Urine pH Ur Specific [place] Urine Protein Urine Glucose (UA) Urine Ketones Urine Occult Blood Urine Nitrite Urine Bilirubin Urine Urobilinogen Ur Leukocyte Esterase Urine RBC Urine WBC Ur Squamous Epith Cells Urine Bacteria Hyaline Casts Urine Mucus 03/25/21 03/25/21 12:05 13:44 WBC Cancelled Corrected WBC Cancelled RBC Cancelled Hgb Cancelled Hct Cancelled MCV Cancelled MCH Cancelled MCHC Cancelled RDW Std Deviation Cancelled RDW Coeff of William Cancelled Plt Count Cancelled MPV Cancelled Immature Gran % (Auto) Cancelled Neut % (Auto) Cancelled Lymph % (Auto) Cancelled Mcclain % (Auto) Cancelled Eos % (Auto) Cancelled Baso % (Auto) Cancelled Absolute Neuts (auto) Cancelled Absolute Lymphs (auto) Cancelled Total Counted Cancelled Neutrophils % (Manual) Cancelled Band Neutrophils % Cancelled Lymphocytes % (Manual) Cancelled Monocytes % (Manual) Cancelled Eosinophils % (Manual) Cancelled Basophils % (Manual) Cancelled Metamyelocytes % Cancelled Myelocytes % Cancelled Promyelocytes % Cancelled Blast Cells % Cancelled Plasma Cell % (Manual) Cancelled Other Cells % Cancelled Nucleated RBC % Cancelled Nucleated RBCs/100 WBC Cancelled Differential Comment Cancelled Diff Path Review Cancelled Hypersegmented Neuts Cancelled Atypical Lymphocytes Cancelled Reactive Lymphocytes Cancelled Smudge Cells Cancelled Toxic Granulation Cancelled Toxic Vacuolation Cancelled Dohle Bodies Cancelled Lois Rods Cancelled Platelet Estimate Cancelled Plt Morphology Comment Cancelled RBC Morphology Cancelled Polychromasia Cancelled Hypochromasia Cancelled Poikilocytosis Cancelled Basophilic Stippling Cancelled Anisocytosis Cancelled Microcytosis Cancelled Macrocytosis Cancelled Spherocytes Cancelled Sickle Cells Cancelled Target Cells Cancelled Tear Drop Cells Cancelled Ovalocytes Cancelled Stomatocytes Cancelled [place] Bodies Cancelled Robert Cells Cancelled Bite Cells Cancelled Crenated Cell Cancelled Acanthocytes (Spur) Cancelled Rouleaux Cancelled Schistocytes Cancelled PT INR APTT Sodium Potassium Chloride Carbon Dioxide Anion Gap BUN Creatinine Estim Creat Clear Calc Est GFR (MDRD) Af Amer Est GFR (MDRD) Non-Af BUN/Creatinine Ratio Glucose Lactic Acid Calcium Total Bilirubin AST ALT Alkaline Phosphatase Ammonia Total Protein Albumin Globulin Albumin/Globulin Ratio Urine Color Roxy Urine Clarity Sl. Cloudy Urine pH 6.0 Ur Specific [place] 1.015 Urine Protein 30 H Urine Glucose (UA) Normal Urine Ketones 50 H Urine Occult Blood 10 H Urine Nitrite Positive H Urine Bilirubin 6 H Urine Urobilinogen 8 H Ur Leukocyte Esterase 25 H Urine RBC 0-5 SEEN Urine WBC 0-5 SEEN Ur Squamous Epith Cells 0-5 SEEN Urine Bacteria 1+ Hyaline Casts 0-5 SEEN Urine Mucus 0 SEEN Radiology Impression Brain CT 03/25/21 11:06 IMPRESSION: Chronic involutional changes of the brain. Electronically Signed: Emmanuel Craig MD at 13:02 EDT , Service support , Chest X-Ray 03/25/21 12:30 IMPRESSION: No acute abnormality is seen. Electronically Signed: Emmanuel Craig MD at 12:54 EDT , Service support , Charges/Coding Visit Charges Office Visits / Consults: [id number] OP Consult L3
[2021-03-25 16:38] VITALS: BP 136/84; PULSE 102; RESP 17; O2SAT 99
--- NOTE | 2021-03-25 16:40 | ED.RN ---
pt signed ama prior to d/c. case assistant at bedside for discharge. discussion about the need to stop consuming alcohol had with patient. pt and case assistant informed that we are always here willing to help. enrico galicia rn [phone]
--- NOTE | 2021-03-25 16:53 | ED.RN ---
canales catheter discontinued prior to patient discharge. pt stated understanding of reasons to return post education. Nicolas galicia rn
--- NOTE | 2021-03-25 18:11 | CM.ED ---
WILD Note: Referral Source: MD Reason for Referral: Discharge planning SW received call from [facility] inquiring about patient's status in the ED. WILD met with RN. RN indicated patient was with his casemanager and left AMA. WILD called Insurance Licensing Supervisor RN for [facility] and advised that patient left AMA with his casemanager. WILD spoke to Shannon, on call RN. WILD called Aura Cisneros at [facility] and updated her regarding patient leaving hospital AMA with his casemanager. Plan: Home with Home [facility] Inessa MERCHANT
== END 2021-03-25 16:42 | disposition left against medical advice (07) ==
PROVIDERS: Emergency Provider Emergency Medicine
DX: A41.9 Sepsis, unspecified organism (principal); N39.0 Urinary tract infection, site not specified; K70.30 Alcoholic cirrhosis of liver without ascites; K72.90 Hepatic failure, unspecified without coma; F41.9 Anxiety disorder, unspecified; F31.9 Bipolar disorder, unspecified; F17.210 Nicotine dependence, cigarettes, uncomplicated; Z79.899 Other long term (current) drug therapy
CPT/HCPCS: 36415; 51702; 70450; 71045; 80053; 81001; 82140; 83605; 85025; 85610; 85730; 87086; 93005; 96365; 99285; J7030; A4216

== ENCOUNTER 2021-03-27 12:02 | Observation (INO) | payer MEDICARE, MEDICAID, SELFPAY ==
[2021-03-27] VITALS (7 sets, daily range): BP systolic 115–148; BP diastolic 65–78; PULSE 85–95; RESP 16–18; TEMP 36.6–37.2; O2SAT 94–99; BMI 24.3; BMI 26.4
--- NOTE | 2021-03-27 12:20 | EKG12_ITS ---
Test Reason : WEAKNESS Blood Pressure : / mmHG Vent. Rate : 080 BPM Atrial Rate : 080 BPM P-R Int : 160 ms QRS Dur : 092 ms QT Int : 402 ms P-R-T Axes : 044 -06 035 degrees QTc Int : 463 ms Normal sinus rhythm Low voltage QRS Inferior infarct , age undetermined Abnormal ECG Confirmed by WALTER GARCIA, HIRO ([id number]), newspaper copy editor TYRONE CALERO ([id number]) on 03/29/2021 8:37:36 AM Referred By: RAMIN Confirmed By:HIRO WATSON MD
--- NOTE | 2021-03-27 12:21 | EX.ED.DYSGE1 ---
HPI History of Present Illness Chief Complaint: Weakness Detail of Chief Complaint: Patient complains of ongoing generalized weakness Informant: patient Narrative Narrative: Patient has not been feeling well for the last week at least. He has been seen in the emergency department and during his last visit signed out AGAINST MEDICAL ADVICE. Patient has alcoholic cirrhosis. Complains of diarrhea up to 4-6 episodes per day. Patient states that during his last visit he had a paracentesis and they took 2 pints of fluid off of him. He denies any fevers. He has not had a slight cough but mostly nonproductive. Patient drinks 1 beer per day. Patient is a smoker. Prior similar symptoms: Yes [facility] Medical History Anxiety Ascites Bipolar disorder Cirrhosis Hepatitis Seizure Home Medications atorvastatin 40 mg PO DAILY 03/26/20 [History Last Taken 12/06/20] citalopram 20 mg PO DAILY 12/07/20 [History Last Taken 12/06/20] cetirizine 10 mg PO DAILY PRN PRN #0 12/14/20 [Rx Last Taken 12/06/20] metoprolol succinate 50 mg PO DAILY #0 12/14/20 [Rx Last Taken 12/06/20] folic acid 1 mg PO DAILY 03/22/21 [History Last Taken Unknown] mirtazapine 45 mg PO QHS 03/22/21 [History Last Taken Unknown] quetiapine [Seroquel] 300 mg PO QHS 03/22/21 [History Last Taken Unknown] thiamine HCl (vitamin B1) [Vitamin B-1] 100 mg PO DAILY 03/22/21 [History Last Taken Unknown] cephalexin 500 mg PO Q8 #21 capsule 03/25/21 [Rx Last Taken Unknown] cholecalciferol (vitamin D3) 1,250 mcg PO MO 03/25/21 [History Last Taken Unknown] furosemide [Lasix] 40 mg PO DAILY 03/25/21 [History Last Taken Unknown] lactulose 10 g PO DAILY #480 ml 03/25/21 [Rx Last Taken Unknown] levetiracetam 500 mg PO BID 03/25/21 [History Last Taken Unknown] magnesium oxide 400 mg PO DAILY 03/25/21 [History Last Taken Unknown] multivitamin 1 tab PO DAILY 03/25/21 [History Last Taken Unknown] spironolactone [Aldactone] 25 mg PO DAILY 03/25/21 [History Last Taken Unknown] Allergy/AdvReac Type Severity Reaction Status Date / Time lisinopril Allergy Angioedema Verified 03/25/21 10:52 peanut Allergy Hives Verified 03/25/21 10:52 Family History Father Myocardial infarction Mother Stomach cancer Social History household members: none housing: apartment Smoking Status: Current every day smoker tobacco type: cigarettes alcohol intake: current alcohol intake frequency: 0-2 drinks per day substance use type: marijuana ROS ROS ED Constitutional Constitutional ED: Reports weakness; Denies systems reviewed and no addt'l complaints, except as documented, body ache(s), change in weight or chills Eyes Eyes: Denies acute decrease in peripheral vision, change in vision, double vision or loss of vision ENT ENT ED: Reports none; Denies ear pain, lip swelling, loss taste/smell, neck pain, otalgia or sore throat Cardiovascular Cardiovascular: Reports none; Denies abdominal pain, chest pain with activity, leg edema, lightheadedness, palpitations, rapid heart rate or syncope Respiratory/Chest Respiratory/Chest: Reports none; Denies change in mental status, dry cough, dyspnea, hemoptysis, shortness of breath at rest or shortness of breath with exertion Gastrointestinal Gastrointestinal: Reports none and diarrhea; Denies abdominal pain, change in stool character, hematemesis, hematochezia, melena, rectal bleeding or vomiting Genitourinary Genitourinary ED: Reports none; Denies abdominal discomfort, anuria, dysuria, genital pain or polyuria Musculoskeletal Musculoskeletal: Reports none; Denies arthralgias, back pain, difficulty walking, extremity pain, muscle weakness or myalgias Integumentary Reports none; Denies abscess or rash Neurologic Neurologic: Reports none; Denies abnormal gait, confusion, focal weakness, frequent falls, headache(s), loss of vision, numbness, paresthesias, radicular pain, vertigo or weakness Psychiatric Psychiatric: Reports systems reviewed and no addt'l complaints, except as documented and none; Denies behavioral changes, confusion, difficulty concentrating, hallucinations, suicidal ideation, tactile hallucinations or visual hallucinations Endocrine Endocrinology: Denies none, cold intolerance, excessive sweating, fatigue or heat intolerance Hematologic/Lymphatic Hematologic/Lymphatic: Reports none; Denies anemia, easy bleeding or easy bruising Allergic/Immunologic Allergic/Immunologic ED: Denies as per HPI, none, lip swelling, mouth swelling, throat swelling, tongue swelling or hives EXAM Physical Exam Const Vital Signs: 03/27/21 12:03 03/27/21 12:11 03/27/21 12:15 Temperature 98.1 F 98.1 F Temperature Source Temporal Temporal Pulse Rate 91 91 Respiratory Rate 16 16 Respiratory Effort Normal Non-Labored Respiratory Pattern Normal Blood Pressure 127/75 H 127/65 H Blood Pressure Mean 92 85 Pulse Ox 94 94 Oxygen Delivery Method Room Air Room Air 03/27/21 13:32 Temperature 98.8 F Temperature Source Oral Pulse Rate 88 Respiratory Rate 16 Respiratory Effort Respiratory Pattern Blood Pressure 148/78 H Blood Pressure Mean 101 Pulse Ox 98 Oxygen Delivery Method Room Air Positive well developed and cachectic Constitutional Narrative: Patient jaundiced General Appearance ED: well developed, cachectic and NAD Nutritional Appearance: cachectic HEENT Reports TM's clear and moist mucous membranes normocephalic and atraumatic; Negative for trauma or tenderness Tympanic Membrane ED: Yes TM's clear Eyes PERRL and EOMs intact bilaterally; Negative for no scleral icterus General Eye ED: Negative for pale conjunctiva or scleral icterus Neck no lymphadenopathy, supple and no JVD General: Negative for tenderness Chest Wall inspection of chest normal and palpation of chest normal Chest: Negative for tenderness Resp normal respiratory effort and clear to auscultation bilaterally Effort and Inspection: Negative for respiratory distress or pain with movement Auscultation: Negative for rhonchi, wheezes or diminished lung sounds Cardio regular rate, regular rhythm, S1 normal heart sound, S2 normal heart sound and no murmurs Peripheral Pulses: pulses 2+ throughout GI soft to palpation, non-tender, non-distended and no masses GI Narrative: Patient has noted fluid wave and ascites. No significant tenderness on exam. Back/Spine no CVA tenderness and no thoracic nor lumbar tenderness Extremity normal to inspection General Extremety ED: Negative for edema General Extremity: Negative for edema Neuro oriented x3, CN's II-XII intact bilaterally, no sensory deficits noted and gait normal Sensorium / Orientation: awake, alert, oriented to person, oriented to place and oriented to time Motor Exam: strength 5/5 throughout and strength abnormal Psych mental status grossly normal Skin no rashes or lesions noted and no wounds MDM MDM MDM Narrative Medical decision making narrative: Patient is noted to be hypokalemic and received 40 mEq of potassium chloride p.o. Patient has generalized weakness and debility and there is concern about patient being able to care for self. At this point case will be discussed with hospitalist evaluate for admission. Lab Data Attestation: I reviewed the patient's lab results. Labs: Laboratory Results - last 24 hr 03/27/21 03/27/21 03/27/21 13:00 13:00 13:00 WBC 9.2 RBC 2.96 L Hgb 10.3 L Hct 31.1 L MCV 105.1 H MCH 34.8 H MCHC 33.1 RDW Std Deviation 63.5 H RDW Coeff of William 16.3 H Plt Count 143 L MPV 9.7 Immature Gran % (Auto) 0.900 Neut % (Auto) 62.8 Lymph % (Auto) 21.7 [place] % (Auto) 12.9 H Eos % (Auto) 1.2 Baso % (Auto) 0.5 Absolute Neuts (auto) 5.8 Absolute Lymphs (auto) 2.00 Nucleated RBC % 0 PT 19.7 H INR 1.7 APTT 37.6 H Sodium 134 L Potassium 2.7 L* Chloride 106 Carbon Dioxide 20.0 L Anion Gap 8 BUN 7 Creatinine 0.52 L Estim Creat Clear Calc 156.88 Est GFR (MDRD) Af Amer 206 Est GFR (MDRD) Non-Af 170 BUN/Creatinine Ratio 13.4 Glucose 97 Lactic Acid Calcium 8.1 L Total Bilirubin 6.70 H AST 172 H ALT 58 Alkaline Phosphatase 191 H Troponin I < 0.015 Total Protein 6.8 Albumin 1.4 L Globulin 5.4 H Albumin/Globulin Ratio 0.3 L 03/27/21 13:00 WBC RBC Hgb Hct MCV MCH MCHC RDW Std Deviation RDW Coeff of William Plt Count MPV Immature Gran % (Auto) Neut % (Auto) Lymph % (Auto) [place] % (Auto) Eos % (Auto) Baso % (Auto) Absolute Neuts (auto) Absolute Lymphs (auto) Nucleated RBC % PT INR APTT Sodium Potassium Chloride Carbon Dioxide Anion Gap BUN Creatinine Estim Creat Clear Calc Est GFR (MDRD) Af Amer Est GFR (MDRD) Non-Af BUN/Creatinine Ratio Glucose Lactic Acid 2.6 H* Calcium Total Bilirubin AST ALT Alkaline Phosphatase Troponin I Total Protein Albumin Globulin Albumin/Globulin Ratio Radiography Diagnostic Testing: Radiology Impression Chest X-Ray 03/27/21 13:35 IMPRESSION: No acute abnormality is seen. Electronically Signed: Emmanuel Craig MD at 13:47 EDT , Service support , EKG Initial EKG: Interpretation: Sinus Rhythm Comments: Sinus rhythm with a ventricular rate of 80 bpm with old inferior infarct noted. Prior EKG tracings: available for review Prior: Unchanged Discharge Plan Triage Chief Complaint: Weakness ED Provider: Jacqueline Aponte Dx/Rx/DC Orders Clinical Impression: Weakness, Acute hypokalemia Prescriptions: No Action atorvastatin 40 MG tablet 40 mg PO DAILY RF: 0 citalopram 20 MG tablet 20 mg PO DAILY RF: 0 cetirizine 10 MG tablet 10 mg PO DAILY PRN PRN (Reason: Allergies) Qty: 0 RF: 0 metoprolol succinate 50 MG tablet extended release 24 hr 50 mg PO DAILY Qty: 0 RF: 0 quetiapine [Seroquel] 300 mg Tablet 300 mg PO QHS RF: 0 thiamine HCl (vitamin B1) [Vitamin B-1] 100 mg Tablet 100 mg PO DAILY RF: 0 mirtazapine 45 mg tablet 45 mg PO QHS RF: 0 folic acid 1 mg Tablet 1 mg PO DAILY RF: 0 magnesium oxide 400 mg magnesium Tablet 400 mg PO DAILY RF: 0 lactulose 10 gram/15 mL (15 mL) solution 10 g PO DAILY Qty: 480 RF: 0 cephalexin [cephalexin] 500 MG capsule 500 mg PO Q8 Qty: 21 RF: 0 multivitamin 1 EACH tablet 1 tab PO DAILY RF: 0 furosemide [Lasix] 40 mg tablet 40 mg PO DAILY RF: 0 spironolactone [Aldactone] 25 mg tablet 25 mg PO DAILY RF: 0 cholecalciferol (vitamin D3) 1,250 mcg (50,000 unit) Capsule 1,250 mcg PO MO RF: 0 levetiracetam 500 mg tablet 500 mg PO BID RF: 0 Primary Care Provider: Debra Sosa Referrals: [facility] Debra Renner [Primary Care Provider] - Disposition Disposition: Acute Care [facility]
[2021-03-27] MEDS: 0.9% Normal Saline 1,000 ML 15 ML IV (13:05)
[2021-03-27 13:16] LABS: Absolute Neutrophil Count 5.8 X10^3/uL (2.0-7.7); Basophil# 0.05 X10^3/uL; Basophil% 0.5 % (0-1); Eosinophil# 0.11 X10^3/uL; Eosinophils% 1.2 % (0-5); Hematocrit 31.1 % (40-54); Hemoglobin 10.3 g/dL (13.0-16.5); Lymphocyte % 21.7 % (19-41); Mean Corp Hgb Conc 33.1 g/dL (32-36); Mean Corpuscular Hgb 34.8 pg (27.0-32.0); Mean Corpuscular Volume 105.1 fL (80-94); Mean Platelet Vol. 9.7 fl (6.2-12.0); Monocyte# 1.19 X10^3/uL; Monocyte% 12.9 % (0-10); NRBC Flagged by Analyzer 0 % (0-5); Neutrophil % 62.8 % (47-70); Platelet Count 143 K/mm3 (150-450); RBC Distribution Width CV 16.3 % (11.6-14.6); RBC Distribution Width SD 63.5 fl (35.1-43.9); Red Blood Count 2.96 M/mm3 (4.6-6.2); White Blood Count 9.2 K/mm3 (4.4-11.0)
[2021-03-27 13:30] LABS: International Normalized Ratio 1.7; Prothrombin Time (Protime)PT. 19.7 SECONDS (11.7-14.9)
[2021-03-27 13:31] LABS: Partial Thromboplast Time 37.6 Seconds (24.1-36.2)
--- NOTE | 2021-03-27 13:35 | RAD_ITS ---
STUDY: X-RAY CHEST REASON FOR EXAM: Male, 60 years old. Cough. Increased weakness. TECHNIQUE: Single AP portable view of the chest. COMPARISON: Comparison is made with prior examination dated 03/25/2021. FINDINGS: EKG electrodes are seen. Mild elevation of the right hemidiaphragm. There is no demonstrated pleural abnormality. Normal size heart. Normal mediastinum and krista. Normal visualized pulmonary arteries. There is atherosclerotic tortuosity of the aortic arch and descending thoracic aorta. Normal visualized thoracic spine. Normal visualized ribs, clavicles, and shoulders. There is no demonstrated abnormality of the visualized soft tissue structures of the upper abdomen. RAD/Chest 1 View (Portable) IMPRESSION: No acute abnormality is seen. Electronically Signed: Emmanuel Craig MD at 13:47 EDT , Service support ,
[2021-03-27 13:37] LABS: ALB/GLOB Ratio 0.3 RATIO (0.9-2.4); AST(SGOT) 172 U/L (15-37); Alanine Aminotransfer ALT/SGPT 58 U/L (16-61); Albumin, Serum 1.4 g/dL (3.2-5.0); Alkaline Phosphatase 191 U/L (45-117); Anion Gap 8 (5-15); BUN 7 mg/dL (7-18); BUN/Creat Ratio 13.4 RATIO (10-20); Calcium,Total 8.1 mg/dL (8.5-10.1); Chloride 106 mmol/L (98-107); Creatinine, Serum 0.52 mg/dL (0.70-1.30); EST Glomerular Filtration Rate 170 mL/min (>60); Est Glom Filt Rate - Afr Amer 206 mL/min (>60); Estimated Creatinine Clearance 156.88 ml/min; Globulin 5.4 g/dL (2.2-4.2); Glucose 97 mg/dL (74-106); Potassium 2.7 mmol/L (3.5-5.1); Protein, Total 6.8 g/dL (6.4-8.2); Sodium Level 134 mmol/L (136-145)
[2021-03-27 13:50] LABS: Lactic Acid 2.6 mmol/L (0.4-1.9)
[2021-03-27] MEDS: Potassium Chloride Oral Tablet 20 MEQ 40 MEQ PO (13:57)
--- NOTE | 2021-03-27 14:08 | NURSING ---
MED SURG OBS YESICA WEAKNESS, HYPOKALEMIA
--- NOTE | 2021-03-27 14:41 | PCM.HP.STD ---
HPI - General General Date of Admission: 03/27/21 HPI Narrative HERB RICHARDS, is a 60 M who presents presents again with weakness. Patient was in the emergency room 2 days ago for weakness at that time and was seen by myself for admission but left AGAINST MEDICAL ADVICE so that he could take care of his dogs. Patient unable to care for himself and is here with his appliance repair technician and patient is now in agreement to going to facility for further rehab and strengthening. Patient states that his neighbor will be watching his dog checking on his dog around 3 times per day for the duration that he is gone. PFSH Medical History Alcohol abuse Anxiety Ascites Bipolar disorder Cirrhosis Depression GI bleed Hepatitis Seizure Smoker Home Medications atorvastatin 40 mg PO QHS 03/26/20 [History Last Taken 03/26/21] citalopram 20 mg PO DAILY 12/07/20 [History Last Taken 03/27/21] cetirizine 10 mg PO DAILY PRN PRN #0 12/14/20 [Rx Last Taken 03/27/21] metoprolol succinate 50 mg PO DAILY #0 12/14/20 [Rx Last Taken 03/27/21] folic acid 1 mg PO DAILY 03/22/21 [History Last Taken 03/27/21] mirtazapine 45 mg PO QHS 03/22/21 [History Last Taken 03/26/21] quetiapine [Seroquel] 300 mg PO QHS 03/22/21 [History Last Taken 03/26/21] thiamine HCl (vitamin B1) [Vitamin B-1] 100 mg PO BIDCM 03/22/21 [History Last Taken 03/27/21] cephalexin 500 mg PO Q8 #21 capsule 03/25/21 [Rx Last Taken 03/27/21] cholecalciferol (vitamin D3) 1,250 mcg PO MO 03/25/21 [History Last Taken 03/25/21] furosemide [Lasix] 40 mg PO DAILY 03/25/21 [History Last Taken 03/27/21] lactulose 10 g PO DAILY #480 ml 03/25/21 [Rx Last Taken 03/27/21] levetiracetam 500 mg PO BID 03/25/21 [History Last Taken 03/27/21] magnesium oxide 400 mg PO DAILY 03/25/21 [History Last Taken 03/27/21] multivitamin 1 tab PO DAILY 03/25/21 [History Last Taken 03/27/21] spironolactone [Aldactone] 25 mg PO DAILY 03/25/21 [History Last Taken 03/26/21] Allergy/AdvReac Type Severity Reaction Status Date / Time lisinopril Allergy Angioedema Verified 03/25/21 10:52 peanut Allergy Hives Verified 03/25/21 10:52 Family History Father Myocardial infarction Mother Stomach cancer Social History household members: none housing: apartment Smoking Status: Current every day smoker tobacco type: cigarettes alcohol intake: current alcohol intake frequency: 0-2 drinks per day substance use type: marijuana ROS ROS Narrative All review of systems were negative except as mentioned above in the history of present illness and the other review of systems. Does have lower extremity edema. She abdominal distention but unchanged. Is has been having diarrhea for the past couple days after starting lactulose. Vital Signs Vital Signs Vital Signs: 03/27/21 12:03 03/27/21 12:11 03/27/21 12:15 Temperature 36.7 C 36.7 C Temperature Source Temporal Temporal Pulse Rate 91 91 Respiratory Rate 16 16 Respiratory Effort Normal Non-Labored Respiratory Pattern Normal Blood Pressure 127/75 H 127/65 H Blood Pressure Mean 92 85 Pulse Ox 94 94 Oxygen Delivery Method Room Air Room Air 03/27/21 13:32 03/27/21 14:05 Temperature 37.1 C 37.2 C Temperature Source Oral Temporal Pulse Rate 88 86 Respiratory Rate 16 16 Respiratory Effort Respiratory Pattern Blood Pressure 148/78 H 148/72 H Blood Pressure Mean 101 97 Pulse Ox 98 98 Oxygen Delivery Method Room Air Room Air Weight Weight: 78.925 kg Body Mass Index (BMI) 24.3 Physical Exam Const alert HEENT normocephalic Eyes PERRL Resp normal respiratory effort and clear to auscultation bilaterally Cardio regular rate, regular rhythm, S1 normal heart sound and S2 normal heart sound GI normal to inspection, nondistended, normoactive bowel sounds, soft to palpation and non-tender GI Narrative: Abdominal distention. Not taut. Nontender. Extremity normal to inspection Extremity Narrative: Bilateral lower extremity edema Skin Skin Narrative: Some bruising. Numerous tattoos. Neuro Neuro Narrative: No clonus Sensorium / Orientation: awake and alert Psych affect normal Results Lab / Micro Data Result Diagrams: 03/27/21 13:00 03/27/21 13:00 Labs: Laboratory Results - last 24 hr 03/27/21 03/27/21 03/27/21 13:00 13:00 13:00 WBC 9.2 RBC 2.96 L Hgb 10.3 L Hct 31.1 L MCV 105.1 H MCH 34.8 H MCHC 33.1 RDW Std Deviation 63.5 H RDW Coeff of William 16.3 H Plt Count 143 L MPV 9.7 Immature Gran % (Auto) 0.900 Neut % (Auto) 62.8 Lymph % (Auto) 21.7 [place] % (Auto) 12.9 H Eos % (Auto) 1.2 Baso % (Auto) 0.5 Absolute Neuts (auto) 5.8 Absolute Lymphs (auto) 2.00 Nucleated RBC % 0 PT 19.7 H INR 1.7 APTT 37.6 H Sodium 134 L Potassium 2.7 L* Chloride 106 Carbon Dioxide 20.0 L Anion Gap 8 BUN 7 Creatinine 0.52 L Estim Creat Clear Calc 156.88 Est GFR (MDRD) Af Amer 206 Est GFR (MDRD) Non-Af 170 BUN/Creatinine Ratio 13.4 Glucose 97 Lactic Acid Calcium 8.1 L Total Bilirubin 6.70 H AST 172 H ALT 58 Alkaline Phosphatase 191 H Troponin I < 0.015 Total Protein 6.8 Albumin 1.4 L Globulin 5.4 H Albumin/Globulin Ratio 0.3 L 03/27/21 13:00 WBC RBC Hgb Hct MCV MCH MCHC RDW Std Deviation RDW Coeff of William Plt Count MPV Immature Gran % (Auto) Neut % (Auto) Lymph % (Auto) [place] % (Auto) Eos % (Auto) Baso % (Auto) Absolute Neuts (auto) Absolute Lymphs (auto) Nucleated RBC % PT INR APTT Sodium Potassium Chloride Carbon Dioxide Anion Gap BUN Creatinine Estim Creat Clear Calc Est GFR (MDRD) Af Amer Est GFR (MDRD) Non-Af BUN/Creatinine Ratio Glucose Lactic Acid 2.6 H* Calcium Total Bilirubin AST ALT Alkaline Phosphatase Troponin I Total Protein Albumin Globulin Albumin/Globulin Ratio Micro: Microbiology 03/27/21 13:05 SARS-CoV-2 Antigen (Rapid) - Final Mucosa - Nose Radiology Impression Chest X-Ray 03/27/21 13:35 IMPRESSION: No acute abnormality is seen. Electronically Signed: Emmanuel Craig MD at 13:47 EDT , Service support , Assessment & Plan Assessment/Plan (1) Hypokalemia: (2) Debility: PLAN: 1. Hypokalemia Suspect due to inadequate nutrition Replace Check magnesium 2. Debility Patient presents with his appliance repair technician and patient is now in agreement to be evaluated by physical therapy and potentially going to a shelter facility upon discharge for further strengthening. 3. 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 May consider the next 48 to 72 hours increasing furosemide to twice daily Hopefully the introduction of the spironolactone will help with his hypokalemia as well 4. Severe protein malnutrition Patient has abdomen of 1.4 Consult nutrition for further recommendations 5. Seizure disorder Continue with levetiracetam 6. VTE prophylaxis: Not indicated as patient is currently observation status. Would avoid chemical prophylaxis as patient does have a coagulopathy related with his cirrhosis with an INR of 1.7 Charges/Coding Visit Charges OBSV E&M: 00397 Initial observation care L3
[2021-03-27 16:27] LABS: Bacteria 0 SEEN /hpf (None Seen); Mucous, Urine 0 SEEN /hpf (<or=2+); Red Blood Cells-Urine 0 SEEN /hpf (0-5)
[2021-03-27] MEDS: Thiamine Hydrochloride 100 MG Tablet PO (16:55)
[2021-03-27] MEDS: Spironolactone 50 MG Tablet 100 MG PO (16:55)
[2021-03-27] MEDS: Furosemide 40 MG Tablet PO (16:56)
[2021-03-27 17:01] LABS: Color, Urine Amber (Yellow); Glucose, Dipstick Normal (Normal); Ketone-Dipstick 5 mg/dl (Negative); Leukocyte Esterase-Dipstick 100 /ul (Negative); Nitrite-Dipstick Positive (Negative); Occult Blood-Urine 25 /ul (Negative); Protein-Dipstick 30 mg/dl (Negative); Urine Clarity Clear (Clear); Urine Urobilinogen 4 mg/dl (Normal)
[2021-03-27 17:14] LABS: Urine Bilirubin Dipstick 6 mg/dL (Negative)
[2021-03-27 17:14] LABS: Reflex Lactate? Y
[2021-03-27 17:17] LABS: White Blood Cells 0-5 SEEN /hpf (0-5)
[2021-03-27 17:18] LABS: Squamous Epithelial Cells - UA 0-5 SEEN /hpf (0-5)
[2021-03-27 17:20] LABS: Hyaline Cast 10-25 SEEN /lpf (0-5)
[2021-03-27 18:22] LABS: Lactic Acid 1.3 mmol/L (0.4-1.9)
[2021-03-27] MEDS: levETIRAcetam 500 MG Tablet PO (21:39)
[2021-03-27] MEDS: QUEtiapine 100 MG Tablet 300 MG PO (21:39)
[2021-03-27] MEDS: Mirtazapine 15 MG Tablet 45 MG PO (21:39)
--- NOTE | 2021-03-27 22:27 | NURSING ---
Pt expressed to this RN he will be leaving in the morning due to his neighbor calling and informing him he is now unable to care for the pt dog. This RN asked if there was anyone else he could call, pt replied, No.
[2021-03-28 04:00] VITALS: BP 140/62; PULSE 90; RESP 16; TEMP 36.6; O2SAT 97
[2021-03-28 06:29] LABS: International Normalized Ratio 1.5; Prothrombin Time (Protime)PT. 17.5 SECONDS (11.7-14.9)
[2021-03-28 06:43] LABS: ALB/GLOB Ratio 0.2 RATIO (0.9-2.4); AST(SGOT) 140 U/L (15-37); Alanine Aminotransfer ALT/SGPT 50 U/L (16-61); Albumin, Serum 1.2 g/dL (3.2-5.0); Alkaline Phosphatase 165 U/L (45-117); Anion Gap 7 (5-15); BUN 6 mg/dL (7-18); BUN/Creat Ratio 12.8 RATIO (10-20); Calcium,Total 7.8 mg/dL (8.5-10.1); Chloride 107 mmol/L (98-107); Creatinine, Serum 0.47 mg/dL (0.70-1.30); EST Glomerular Filtration Rate 193 mL/min (>60); Est Glom Filt Rate - Afr Amer 233 mL/min (>60); Estimated Creatinine Clearance 173.56 ml/min; Globulin 4.8 g/dL (2.2-4.2); Glucose 114 mg/dL (74-106); Magnesium 1.2 mg/dL (1.6-2.6); Potassium 2.9 mmol/L (3.5-5.1); Sodium Level 134 mmol/L (136-145)
--- NOTE | 2021-03-28 07:56 | NURSING ---
Patient stated that he is going to leave AMA, as he has a dog to take care of. Pt informed that his magnesium and potassium are very low, magnesium critically low and that he should stay and have them replaced. Patient stated that he doesn't care and that he needs to take care of his dog. This nurse informed patient that per the MD he could have very severe effects from this, including . Pt states that everybody is going to sometime. Nursing students at bedside, as patient states he needs assistance getting cleaned up. Will notify .
--- NOTE | 2021-03-28 07:57 | NURSING ---
pt requesting to leave AMA because of a dog at home. pt advised to stay and receive treatment. pt signed AMA forms. Dr. leija.
[2021-03-28] MEDS: Potassium Chloride Oral Tablet 20 MEQ 60 MEQ PO (08:20)
[2021-03-28] MEDS: Folic Acid 1 MG Tablet PO (08:22)
[2021-03-28] MEDS: Multivitamins,Therapeutic Tablet 1 TABLET PO (08:22)
[2021-03-28] MEDS: Thiamine Hydrochloride 100 MG Tablet PO (08:22)
[2021-03-28] MEDS: Magnesium Sulfate 4gm/100mL 4 GM/100 ML IV.SOLN. IV (09:31)
[2021-03-28] MEDS: Spironolactone 50 MG Tablet 100 MG PO (09:33)
[2021-03-28] MEDS: Citalopram 20 MG Tablet PO (09:34)
[2021-03-28] MEDS: Furosemide 40 MG Tablet PO (09:34)
[2021-03-28] MEDS: levETIRAcetam 500 MG Tablet PO (09:34)
[2021-03-28] MEDS: Lactulose 20 GM/30 ML UDC 10 GM PO (09:34)
[2021-03-28 09:35] VITALS: PULSE 110
[2021-03-28] MEDS: Metoprolol(XL)Succ 50 MG Tablet PO (09:35)
[2021-03-28] MEDS: Magnesium Chloride 64 MG Delay Rel.Tablet 128 MG PO (09:35)
--- NOTE | 2021-03-28 09:55 | PCM.DC.SUM ---
Documented by User: Kike JAIMES 03/28/21 14:32 Providers Date of Admission: 03/27/21 Primary Care Physician: [facility] Reason For Visit: HYPOKALEMIA, DEBILITY Diagnosis Discharge Diagnosis (1) Hypokalemia: Status: Chronic Code(s): E87.6 - Hypokalemia (2) Debility: Status: Acute Code(s): R53.81 - Other malaise Medications at Discharge Home Medications atorvastatin 40 mg PO QHS 03/26/20 citalopram 20 mg PO DAILY 12/07/20 cetirizine 10 mg PO DAILY PRN PRN #0 12/14/20 metoprolol succinate 50 mg PO DAILY #0 12/14/20 folic acid 1 mg PO DAILY 03/22/21 mirtazapine 45 mg PO QHS 03/22/21 quetiapine [Seroquel] 300 mg PO QHS 03/22/21 thiamine HCl (vitamin B1) [Vitamin B-1] 100 mg PO BIDCM 03/22/21 cephalexin 500 mg PO Q8 #21 capsule 03/25/21 cholecalciferol (vitamin D3) 1,250 mcg PO MO 03/25/21 furosemide [Lasix] 40 mg PO DAILY 03/25/21 lactulose 10 g PO DAILY #480 ml 03/25/21 levetiracetam 500 mg PO BID 03/25/21 magnesium oxide 400 mg PO DAILY 03/25/21 multivitamin 1 tab PO DAILY 03/25/21 spironolactone [Aldactone] 25 mg PO DAILY 03/25/21 Hospital Course Summary of Care Provided Minutes Spent on Discharge: 35 Hospital Course: Patient is a 60-year-old male who presented to the ED at [facility] on 03/27/2021 with a chief complaint of weakness. Patient was admitted for hypokalemia, hypomagnesemia, debility, cirrhosis and severe protein calorie malnutrition. Today patient states that he would like to leave AGAINST MEDICAL ADVICE because he needs to get home to take care of his dogs. Patient was advised that this is strongly discouraged and may result in worsening of his condition or possibly . Patient acknowledges and understands the risks and still would like to proceed with discharge. Patient agreeable to stay until his magnesium can be replaced. AMA form has been signed. Patient seen by Kike Perez PA-C, under the supervision of Dr. Nair. Physical Exam Narrative Patient is a 60-year-old male comfortably resting in bed, alert and orient x3. Denies chest pain, shortness of breath, fever, chills, N/V/D. Const alert and oriented x3 HEENT normocephalic, head/scalp atraumatic and hearing grossly normal bilaterally Eyes PERRL, EOMs intact bilaterally and conjunctivae normal Neck no lymphadenopathy, supple and no JVD Resp normal respiratory effort, no retractions, no use of accessory muscles and clear to auscultation bilaterally Cardio no murmurs and no JVD Rate: bradycardia GI Inspection: abdominal distention Extremity General Extremity: edema Skin General Skin Exam: jaundice Neuro CN's II-XII intact bilaterally Psych affect normal Weight / BMI Weight Weight: 189 lb 2.506 oz Body Mass Index (BMI) 26.4 ABG / Lab / Microbiology Data Result Diagrams: 03/27/21 13:00 03/28/21 06:00 Laboratory: Laboratory Results - last 24 hr 03/27/21 03/27/21 03/27/21 13:00 13:00 13:00 WBC 9.2 RBC 2.96 L Hgb 10.3 L Hct 31.1 L MCV 105.1 H MCH 34.8 H MCHC 33.1 RDW Std Deviation 63.5 H RDW Coeff of William 16.3 H Plt Count 143 L MPV 9.7 Immature Gran % (Auto) 0.900 Neut % (Auto) 62.8 Lymph % (Auto) 21.7 [place] % (Auto) 12.9 H Eos % (Auto) 1.2 Baso % (Auto) 0.5 Absolute Neuts (auto) 5.8 Absolute Lymphs (auto) 2.00 Nucleated RBC % 0 PT 19.7 H INR 1.7 APTT 37.6 H Sodium 134 L Potassium 2.7 L* Chloride 106 Carbon Dioxide 20.0 L Anion Gap 8 BUN 7 Creatinine 0.52 L Estim Creat Clear Calc 156.88 Est GFR (MDRD) Af Amer 206 Est GFR (MDRD) Non-Af 170 BUN/Creatinine Ratio 13.4 Glucose 97 Lactic Acid Calcium 8.1 L Magnesium Total Bilirubin 6.70 H AST 172 H ALT 58 Alkaline Phosphatase 191 H Ammonia Troponin I < 0.015 Total Protein 6.8 Albumin 1.4 L Globulin 5.4 H Albumin/Globulin Ratio 0.3 L Urine Color Urine Clarity Urine pH Ur Specific [place] Urine Protein Urine Glucose (UA) Urine Ketones Urine Occult Blood Urine Nitrite Urine Bilirubin Urine Urobilinogen Ur Leukocyte Esterase Urine RBC Urine WBC Ur Squamous Epith Cells Urine Bacteria Hyaline Casts Urine Mucus 03/27/21 03/27/21 03/27/21 13:00 14:20 16:18 WBC RBC Hgb Hct MCV MCH MCHC RDW Std Deviation RDW Coeff of William Plt Count MPV Immature Gran % (Auto) Neut % (Auto) Lymph % (Auto) [place] % (Auto) Eos % (Auto) Baso % (Auto) Absolute Neuts (auto) Absolute Lymphs (auto) Nucleated RBC % PT INR APTT Sodium Potassium Chloride Carbon Dioxide Anion Gap BUN Creatinine Estim Creat Clear Calc Est GFR (MDRD) Af Amer Est GFR (MDRD) Non-Af BUN/Creatinine Ratio Glucose Lactic Acid 2.6 H* Calcium Magnesium Total Bilirubin AST ALT Alkaline Phosphatase Ammonia 29.0 Troponin I Total Protein Albumin Globulin Albumin/Globulin Ratio Urine Color Roxy Urine Clarity Clear Urine pH 5.0 Ur Specific [place] 1.020 Urine Protein 30 H Urine Glucose (UA) Normal Urine Ketones 5 H Urine Occult Blood 25 H Urine Nitrite Positive H Urine Bilirubin 6 H Urine Urobilinogen 4 H Ur Leukocyte Esterase 100 H Urine RBC 0 SEEN Urine WBC 0-5 SEEN Ur Squamous Epith Cells 0-5 SEEN Urine Bacteria 0 SEEN Hyaline Casts 10-25 SEEN Urine Mucus 0 SEEN 03/27/21 03/28/21 03/28/21 17:33 06:00 06:00 WBC RBC Hgb Hct MCV MCH MCHC RDW Std Deviation RDW Coeff of William Plt Count MPV Immature Gran % (Auto) Neut % (Auto) Lymph % (Auto) [place] % (Auto) Eos % (Auto) Baso % (Auto) Absolute Neuts (auto) Absolute Lymphs (auto) Nucleated RBC % PT 17.5 H INR 1.5 APTT Sodium 134 L Potassium 2.9 L Chloride 107 Carbon Dioxide 20.0 L Anion Gap 7 BUN 6 L Creatinine 0.47 L Estim Creat Clear Calc 173.56 Est GFR (MDRD) Af Amer 233 Est GFR (MDRD) Non-Af 193 BUN/Creatinine Ratio 12.8 Glucose 114 H Lactic Acid 1.3 Calcium 7.8 L Magnesium 1.2 L Total Bilirubin 5.50 H AST 140 H ALT 50 Alkaline Phosphatase 165 H Ammonia Troponin I Total Protein 6.0 L Albumin 1.2 L Globulin 4.8 H Albumin/Globulin Ratio 0.2 L Urine Color Urine Clarity Urine pH Ur Specific [place] Urine Protein Urine Glucose (UA) Urine Ketones Urine Occult Blood Urine Nitrite Urine Bilirubin Urine Urobilinogen Ur Leukocyte Esterase Urine RBC Urine WBC Ur Squamous Epith Cells Urine Bacteria Hyaline Casts Urine Mucus Microbiology: Microbiology 03/27/21 13:05 SARS-CoV-2 Antigen (Rapid) - Final Mucosa - Nose Microbiology 03/27/21 13:05 Mucosa - Nose SARS-CoV-2 Antigen (Rapid) - Final Radiography Diagnostic Testing: Radiology Impression Chest X-Ray 03/27/21 13:35 IMPRESSION: No acute abnormality is seen. Electronically Signed: Emmanuel Craig MD at 13:47 EDT , Service support , Meaningful Use Info Meaningful Use Diagnoses (Choose all that apply): None applicable Discharge Plan Admission Admit Date/Time: 03/27/21 14:39 Attending Provider: Tony Nair [facility] Orders/Prescriptions Prescriptions: No Action atorvastatin 40 MG tablet 40 mg PO QHS RF: 0 citalopram 20 MG tablet 20 mg PO DAILY RF: 0 cetirizine 10 MG tablet 10 mg PO DAILY PRN PRN (Reason: Allergies) Qty: 0 RF: 0 metoprolol succinate 50 MG tablet extended release 24 hr 50 mg PO DAILY Qty: 0 RF: 0 quetiapine [Seroquel] 300 mg Tablet 300 mg PO QHS RF: 0 thiamine HCl (vitamin B1) [Vitamin B-1] 100 mg Tablet 100 mg PO BIDCM RF: 0 mirtazapine 45 mg tablet 45 mg PO QHS RF: 0 folic acid 1 mg Tablet 1 mg PO DAILY RF: 0 magnesium oxide 400 mg magnesium Tablet 400 mg PO DAILY RF: 0 lactulose 10 gram/15 mL (15 mL) solution 10 g PO DAILY Qty: 480 RF: 0 cephalexin [cephalexin] 500 MG capsule 500 mg PO Q8 Qty: 21 RF: 0 multivitamin 1 EACH tablet 1 tab PO DAILY RF: 0 furosemide [Lasix] 40 mg tablet 40 mg PO DAILY RF: 0 spironolactone [Aldactone] 25 mg tablet 25 mg PO DAILY RF: 0 cholecalciferol (vitamin D3) 1,250 mcg (50,000 unit) Capsule 1,250 mcg PO MO RF: 0 levetiracetam 500 mg tablet 500 mg PO BID RF: 0 [facility] - Disposition Disposition (needs filled in before D/C Order can be placed): Against Medical Advice Documented by User: Dr. Tony Nair MD 03/28/21 16:09 Providers Date of Admission: 03/27/21 Reason For Visit: HYPOKALEMIA, DEBILITY Medications at Discharge Home Medications atorvastatin 40 mg PO QHS 03/26/20 citalopram 20 mg PO DAILY 12/07/20 cetirizine 10 mg PO DAILY PRN PRN #0 12/14/20 metoprolol succinate 50 mg PO DAILY #0 12/14/20 folic acid 1 mg PO DAILY 03/22/21 mirtazapine 45 mg PO QHS 03/22/21 quetiapine [Seroquel] 300 mg PO QHS 03/22/21 thiamine HCl (vitamin B1) [Vitamin B-1] 100 mg PO BIDCM 03/22/21 cephalexin 500 mg PO Q8 #21 capsule 03/25/21 cholecalciferol (vitamin D3) 1,250 mcg PO MO 03/25/21 furosemide [Lasix] 40 mg PO DAILY 03/25/21 lactulose 10 g PO DAILY #480 ml 03/25/21 levetiracetam 500 mg PO BID 03/25/21 magnesium oxide 400 mg PO DAILY 03/25/21 multivitamin 1 tab PO DAILY 03/25/21 spironolactone [Aldactone] 25 mg PO DAILY 03/25/21 ABG / Lab / Microbiology Data Result Diagrams: 03/27/21 13:00 03/28/21 06:00 Discharge Plan Admission Admit Date/Time: 03/27/21 14:39 Attending Provider: Tony Nair Primary Care Provider: [facility] Discharge Orders/Prescriptions Prescriptions: No Action atorvastatin 40 MG tablet 40 mg PO QHS RF: 0 citalopram 20 MG tablet 20 mg PO DAILY RF: 0 cetirizine 10 MG tablet 10 mg PO DAILY PRN PRN (Reason: Allergies) Qty: 0 RF: 0 metoprolol succinate 50 MG tablet extended release 24 hr 50 mg PO DAILY Qty: 0 RF: 0 quetiapine [Seroquel] 300 mg Tablet 300 mg PO QHS RF: 0 thiamine HCl (vitamin B1) [Vitamin B-1] 100 mg Tablet 100 mg PO BIDCM RF: 0 mirtazapine 45 mg tablet 45 mg PO QHS RF: 0 folic acid 1 mg Tablet 1 mg PO DAILY RF: 0 magnesium oxide 400 mg magnesium Tablet 400 mg PO DAILY RF: 0 lactulose 10 gram/15 mL (15 mL) solution 10 g PO DAILY Qty: 480 RF: 0 cephalexin [cephalexin] 500 MG capsule 500 mg PO Q8 Qty: 21 RF: 0 multivitamin 1 EACH tablet 1 tab PO DAILY RF: 0 furosemide [Lasix] 40 mg tablet 40 mg PO DAILY RF: 0 spironolactone [Aldactone] 25 mg tablet 25 mg PO DAILY RF: 0 cholecalciferol (vitamin D3) 1,250 mcg (50,000 unit) Capsule 1,250 mcg PO MO RF: 0 levetiracetam 500 mg tablet 500 mg PO BID RF: 0 [facility] - Disposition Disposition (needs filled in before D/C Order can be placed): Against Medical Advice Charges/Coding Addendum Addendum: Dr. Nair: I personally reviewed the chart and examined the patient, and agree with the above findings. 60-year-old male presented to the hospital with debility and weakness. He had come to the ER about 2 days ago but left AGAINST MEDICAL ADVICE because he had to go home and take care of his dogs. Yesterday came with his high risk case manager to the hospital and he was now in agreement with going to a jail facility for rehab, however this morning he demanded to leave AMA. I was able to convince him to stay to get his magnesium for magnesium level of 1.2 and then his potassium replaced since his potassium was 2.9, he agreed to stay for that but then demanded to leave afterwards. He did express understanding that if he left he was risking significant harm to himself including potentially given how bad his electrolytes were on admission, and he understands that he could get better if he stayed here however he is still perseverating on his dogs and that nobody can be able to take care of them. He did leave AGAINST MEDICAL ADVICE. Visit Charges OBSV E&M: 32597 Subsequent observation care L2
[2021-03-28 10:00] VITALS: BP 131/73; PULSE 111; RESP 16; TEMP 37.1; O2SAT 99
--- NOTE | 2021-03-28 11:06 | CASEMGMT ---
Social Work Note SW reviewed chart, pt with CM Klarissa Lorenzana through [facility]. SW placed a call to Klarissa Lorenzana and left message regarding pt's admission and that pt is planning on leaving AMA. SW to continue to follow in the event pt doesn't leave AMA. Dee Lundberg TRACK TEMPLATE MAKER, LICENSE AND PERMIT SPECIALIST
--- NOTE | 2021-03-28 14:28 | CASEMGMT ---
Social Work Note Pt left AMA. WILD placed a call to Silvestre with [facility] and updated her. WILD faxed discharge paperwork to Klarissa Lorenzana at [facility]. Dee Lundberg UTILITY SERVICE WORKER, INFORMATION SYSTEMS AUDITOR
== END 2021-03-28 14:00 | disposition left against medical advice (07) ==
LOC: ED 14:02 → MS3 14:44
PROVIDERS: Emergency Provider Emergency Medicine; Visit Provider Family Medicine
DX: E87.6 Hypokalemia (principal); R53.1 Weakness; K74.60 Unspecified cirrhosis of liver; F41.9 Anxiety disorder, unspecified; F31.9 Bipolar disorder, unspecified; Z86.19 Personal history of other infectious and parasitic diseases; Z79.899 Other long term (current) drug therapy; F17.210 Nicotine dependence, cigarettes, uncomplicated; E43 Unspecified severe protein-calorie malnutrition; Z68.26 Body mass index [BMI] 26.0-26.9, adult; G40.909 Epilepsy, unspecified, not intractable, without status epilepticus; D68.9 Coagulation defect, unspecified
CPT/HCPCS: 36415; 71045; 80053; 81001; 82140; 83605; 83735; 84484; 85025; 85610; 85730; 87426; 93005; 97802; 99218; 99285; 99406; A4216; G0378

== ENCOUNTER 2021-04-06 20:53 | Inpatient (IN) | payer MEDICARE, MEDICAID, SELFPAY ==
[2021-03-27 15:51] VITALS: BMI 26.4
[2021-04-06 20:54] VITALS: BP 115/70; PULSE 85; RESP 16; TEMP 36.7; O2SAT 98; BMI 25.4
--- NOTE | 2021-04-06 21:10 | CT_ITS ---
STUDY: CT BRAIN WITHOUT CONTRAST REASON FOR EXAM: Male, 60 years old. falls RADIATION DOSAGE (If Supplied By Facility): CTDIvol = ( 44.99 ) mGy, DLP = ( 829.85 ) mGycm TECHNIQUE: Transaxial CT imaging of the brain was performed without administration of intravenous contrast material. Individualized dose optimization techniques were used for this CT. COMPARISON: 03/25/2021 FINDINGS: Normal soft tissue structures. Normal calvarium. There is moderate cerebral atrophy with widening of the extra-axial spaces and ventricular dilatation. Normal white matter tracts of the cerebral hemispheres. Normal basal ganglia and thalami. Normal brainstem. Normal cerebellum. There is no intracranial hemorrhage. There are no findings of an acute ischemic infarction. Normal visualized paranasal sinuses. CT/Brain/Head without Contrast IMPRESSION: Chronic involutional changes of the brain. Electronically Signed: Willam Hudson MD at 23:14 EDT , Service support ,
--- NOTE | 2021-04-06 21:10 | RAD_ITS ---
STUDY: X-RAY CHEST REASON FOR EXAM: Male, 60 years old. weakness TECHNIQUE: Single frontal view of the chest. COMPARISON: 03/27/2021 FINDINGS: Subsegmental atelectasis right lung base. The lungs are clear and expanded. There is no demonstrated pleural abnormality. Normal size heart. Normal mediastinum and krista. Normal visualized pulmonary arteries. Normal visualized aortic arch and descending thoracic aorta. Normal visualized thoracic spine. Normal visualized ribs, clavicles, and shoulders. There is no demonstrated abnormality of the visualized soft tissue structures of the upper abdomen. RAD/Chest 1 View (Portable) IMPRESSION: Subsegmental atelectasis right lung base Electronically Signed: Willam Hudson MD at 22:00 EDT , Service support ,
--- NOTE | 2021-04-06 21:11 | EKG12_ITS ---
Test Reason : GENERAL ILLNESS Blood Pressure : / mmHG Vent. Rate : 085 BPM Atrial Rate : 085 BPM P-R Int : 148 ms QRS Dur : 102 ms QT Int : 430 ms P-R-T Axes : 021 -19 022 degrees QTc Int : 511 ms Normal sinus rhythm Low voltage QRS Inferior infarct , age undetermined Prolonged QT Abnormal ECG Confirmed by VIBHA GARCIA, ANNE MARIE ([id number]), clinical editor FREDIS PULIDO ([id number]) on 04/08/2021 10:45:08 A M Referred By: BERTA Confirmed By:ROSALIND DUNNE MD
--- NOTE | 2021-04-06 21:16 | EX.ED.DYSGE1 ---
HPI History of Present Illness Chief Complaint: General Illness Informant: patient Onset/Context/Timing Onset: Days Context: Gradual Onset Timing: Continuous Current Severity: Mild Maximum Severity: Mild Narrative Narrative: 60-year-old male history of alcoholic cirrhosis and liver cancer currently undergoing no treatment. Lives alone at home. Yesterday fell call for assistance by squad did not were to be evaluated that time. He fell again today. Also states has had decreased intake. And he has had diarrhea for the last several weeks. Denies any vomiting. No fever. Denies any injuries from the falls. Prior similar symptoms: Yes Recent Illness/Hospitalization: No PFSH PFSH Medical History Alcohol abuse Anxiety Ascites Bipolar disorder Cirrhosis Depression GI bleed Hepatitis Seizure Smoker Home Medications atorvastatin 40 mg PO QHS 03/26/20 [History Last Taken 03/26/21] citalopram 20 mg PO DAILY 12/07/20 [History Last Taken 03/27/21] cetirizine 10 mg PO DAILY PRN PRN #0 12/14/20 [Rx Last Taken 03/27/21] metoprolol succinate 50 mg PO DAILY #0 12/14/20 [Rx Last Taken 03/27/21] folic acid 1 mg PO DAILY 03/22/21 [History Last Taken 03/27/21] mirtazapine 45 mg PO QHS 03/22/21 [History Last Taken 03/26/21] quetiapine [Seroquel] 300 mg PO QHS 03/22/21 [History Last Taken 03/26/21] thiamine HCl (vitamin B1) [Vitamin B-1] 100 mg PO BIDCM 03/22/21 [History Last Taken 03/27/21] cephalexin 500 mg PO Q8 #21 capsule 03/25/21 [Rx Last Taken 03/27/21] cholecalciferol (vitamin D3) 1,250 mcg PO MO 03/25/21 [History Last Taken 03/25/21] furosemide [Lasix] 40 mg PO DAILY 03/25/21 [History Last Taken 03/27/21] lactulose 10 g PO DAILY #480 ml 03/25/21 [Rx Last Taken 03/27/21] levetiracetam 500 mg PO BID 03/25/21 [History Last Taken 03/27/21] magnesium oxide 400 mg PO DAILY 03/25/21 [History Last Taken 03/27/21] multivitamin 1 tab PO DAILY 03/25/21 [History Last Taken 03/27/21] spironolactone [Aldactone] 25 mg PO DAILY 03/25/21 [History Last Taken 03/26/21] Allergy/AdvReac Type Severity Reaction Status Date / Time lisinopril Allergy Angioedema Verified 03/25/21 10:52 peanut Allergy Hives Verified 03/25/21 10:52 Family History Father Myocardial infarction Mother Stomach cancer Social History household members: none housing: apartment Smoking Status: Current every day smoker tobacco type: cigarettes alcohol intake: current alcohol intake frequency: 0-2 drinks per day substance use type: marijuana ROS ROS ED ROS Narrative Complaint of diarrhea and generalized weakness. Review of Systems ROS Unobtainable: Denies due to encephalopathy Constitutional Constitutional ED: Denies chills or fever(s) Eyes Eyes: Denies change in vision ENT ENT ED: Denies sore throat Cardiovascular Cardiovascular: Denies chest pain Respiratory/Chest Respiratory/Chest: Denies cough or dyspnea Gastrointestinal Gastrointestinal: Reports diarrhea; Denies abdominal pain, nausea or vomiting Genitourinary Genitourinary ED: Denies dysuria Musculoskeletal Musculoskeletal: Denies myalgias Integumentary Denies rash Neurologic Neurologic: Denies headache(s) Psychiatric Psychiatric: Denies depression Endocrine Endocrinology: Denies polyuria Allergic/Immunologic Allergic/Immunologic ED: Denies urticaria EXAM Physical Exam Narrative Exam Narrative: 58-year-old male looks older than stated age. Vital signs stable afebrile. Clinic looks dehydrated. Dry mucous membranes. No signs of trauma to his face. Neck nontender. Lungs coarse breath sounds but no rales rhonchi or wheezing. Heart regular rhythm rate about 85 no murmur. Chest nontender. Abdomen distended due to ascites but nontender. No peritoneal signs. Pelvic girdle intact. No shortening or rotation of either lower extremity. Trace edema both ankles and feet. Nontender upper and lower extremities. Able to do range of motion. Back nontender. Neurologically is awake and alert. He is moving all 4 extremities. He is answering questions and following commands. Const Vital Signs: 04/06/21 20:54 04/06/21 22:02 04/06/21 23:09 Temperature 98.1 F Temperature Source Temporal Pulse Rate 85 87 81 Respiratory Rate 16 18 18 Respiratory Effort Normal Blood Pressure 115/70 110/73 109/73 Blood Pressure Mean 85 85 85 Pulse Ox 98 98 99 Oxygen Delivery Method Room Air Room Air Room Air Positive well nourished, well developed and unkempt General Appearance ED: unkempt and well developed HEENT Reports dry mucous membranes Negative for trauma or tenderness Mouth ED: Yes dry mucous membranes Mouth: dry mucous membranes Eyes PERRL and EOMs intact bilaterally Neck no lymphadenopathy, supple and no JVD General: Negative for tenderness Chest Wall inspection of chest normal Resp normal respiratory effort and clear to auscultation bilaterally Cardio regular rate, regular rhythm and no murmurs GI normal to inspection, nondistended, normoactive bowel sounds and non-tender GI Narrative: Distended with ascites. Inspection: abdominal distention Palpation: soft; Negative for tender, guarding or rebound tenderness present Extremity normal to inspection General Extremety ED: Yes edema; Negative for tenderness General Extremity: edema Neuro oriented x3 and CN's II-XII intact bilaterally Sensorium / Orientation: alert Motor Exam: strength 5/5 throughout Psych mental status grossly normal Appearance: unkempt Skin no rashes or lesions noted MDM MDM MDM Narrative Medical decision making narrative: 60-year-old alcoholic male with cirrhosis and ascites. Also known liver cancer. Presents with falls and generalized weakness. He received IV fluids and evaluation including labs and x-rays. Repeat exam at eleven thirty-five patient is doing better. He had a long discussion and he will be admitted. He is comfortable with the plan. He looks improved after his liter normal saline. He is given additional fluids. Were going to send off C. difficile. I spoken to the hospitalist for admission. Lab Data Attestation: I reviewed the patient's lab results. Lab results narrative: CBC shows a white count of nine hemoglobin of ten. PT/INR unremarkable electrolytes unremarkable gap eleven creatinine is 0.8. Glucose ninety-nine. Liver enzymes are slightly elevated. Lipase normal. Alcohol negative. Lactic acid and ammonia level are unremarkable. CAT scan of the brain unremarkable as read by the radiologist reviewed by me. Portable chest x-ray unremarkable read both by myself and the radiologist. Labs: Laboratory Results - last 24 hr 06/19/21 06/19/21 06/19/21 21:25 21:25 21:25 WBC 9.9 RBC 2.99 L Hgb 10.3 L Hct 30.9 L MCV 103.3 H MCH 34.4 H MCHC 33.3 RDW Std Deviation 59.4 H RDW Coeff of William 15.8 H Plt Count 174 MPV 9.6 Immature Gran % (Auto) 0.600 Neut % (Auto) 67.4 Lymph % (Auto) 19.4 [place] % (Auto) 11.4 H Eos % (Auto) 1.0 Baso % (Auto) 0.2 Absolute Neuts (auto) 6.7 Absolute Lymphs (auto) 1.91 Nucleated RBC % 0 PT 18.9 H INR 1.7 Sodium 134 L Potassium 3.4 L Chloride 104 Carbon Dioxide 19.0 L Anion Gap 11 BUN 13 Creatinine 0.81 Estim Creat Clear Calc 100.71 Est GFR (MDRD) Af Amer 123 Est GFR (MDRD) Non-Af 102 BUN/Creatinine Ratio 16.0 Glucose 99 Lactic Acid Calcium 7.8 L Total Bilirubin 3.90 H AST 106 H ALT 53 Alkaline Phosphatase 176 H Ammonia Total Protein 6.5 Albumin 1.4 L Globulin 5.1 H Albumin/Globulin Ratio 0.3 L Lipase 113 Ethyl Alcohol 04/06/21 04/06/21 04/06/21 21:25 21:25 21:25 WBC RBC Hgb Hct MCV MCH MCHC RDW Std Deviation RDW Coeff of William Plt Count MPV Immature Gran % (Auto) Neut % (Auto) Lymph % (Auto) [place] % (Auto) Eos % (Auto) Baso % (Auto) Absolute Neuts (auto) Absolute Lymphs (auto) Nucleated RBC % PT INR Sodium Potassium Chloride Carbon Dioxide Anion Gap BUN Creatinine Estim Creat Clear Calc Est GFR (MDRD) Af Amer Est GFR (MDRD) Non-Af BUN/Creatinine Ratio Glucose Lactic Acid 1.6 Calcium Total Bilirubin AST ALT Alkaline Phosphatase Ammonia 57.0 H Total Protein Albumin Globulin Albumin/Globulin Ratio Lipase Ethyl Alcohol 4.0 Radiography Chest X-Ray - ED: 1 View, Read by ED Physician, Read by Radiologist, Normal, Heart, Lungs, Mediastinum, Bony Structures, No Acute Disease and Chronic Changes Diagnostic Testing: Radiology Impression Brain CT 04/06/21 21:10 IMPRESSION: Chronic involutional changes of the brain. Electronically Signed: Willam Hudson MD at 23:14 EDT , Service support , Chest X-Ray 04/06/21 21:10 IMPRESSION: Subsegmental atelectasis right lung base Electronically Signed: Willam Hudson MD at 22:00 EDT , Service support , Rhythm Strip Rhythm Strip: Sinus Rhythm Rate: 85 Ectopy: None EKG Initial EKG: Attestation: I personally reviewed and interpreted this EKG as follows: Interpretation: Sinus Rhythm and No Acute Injury Pattern Comments: Normal sinus rhythm rate eighty-five no acute signs of PR or ischemia. Unchanged from prior. Prior: Unchanged Discharge Plan Triage Chief Complaint: General Illness ED Provider: Gentry Luong Dx/Rx/DC Orders Clinical Impression: Diarrhea, Weakness, Adult failure to thrive, Cirrhosis of liver, Cancer of liver, Acute alcoholism Prescriptions: No Action atorvastatin 40 MG tablet 40 mg PO QHS RF: 0 citalopram 20 MG tablet 20 mg PO DAILY RF: 0 cetirizine 10 MG tablet 10 mg PO DAILY PRN PRN (Reason: Allergies) Qty: 0 RF: 0 metoprolol succinate 50 MG tablet extended release 24 hr 50 mg PO DAILY Qty: 0 RF: 0 quetiapine [Seroquel] 300 mg Tablet 300 mg PO QHS RF: 0 thiamine HCl (vitamin B1) [Vitamin B-1] 100 mg Tablet 100 mg PO BIDCM RF: 0 mirtazapine 45 mg tablet 45 mg PO QHS RF: 0 folic acid 1 mg Tablet 1 mg PO DAILY RF: 0 magnesium oxide 400 mg magnesium Tablet 400 mg PO DAILY RF: 0 lactulose 10 gram/15 mL (15 mL) solution 10 g PO DAILY Qty: 480 RF: 0 cephalexin [cephalexin] 500 MG capsule 500 mg PO Q8 Qty: 21 RF: 0 multivitamin 1 EACH tablet 1 tab PO DAILY RF: 0 furosemide [Lasix] 40 mg tablet 40 mg PO DAILY RF: 0 spironolactone [Aldactone] 25 mg tablet 25 mg PO DAILY RF: 0 cholecalciferol (vitamin D3) 1,250 mcg (50,000 unit) Capsule 1,250 mcg PO MO RF: 0 levetiracetam 500 mg tablet 500 mg PO BID RF: 0 Primary Care Provider: [facility] Debra Renner Referrals: [facility] Debra Renner [Primary Care Provider] - Disposition Disposition: Acute Care Hospital [facility]
[2021-04-06 21:41] LABS: Absolute Lymphocyte Count 1.91 X10^3/uL (0.83-4.51); Absolute Neutrophil Count 6.7 X10^3/uL (2.0-7.7); Basophil# 0.02 X10^3/uL; Basophil% 0.2 % (0-1); Hematocrit 30.9 % (40-54); Hemoglobin 10.3 g/dL (13.0-16.5); Lymphocyte # 1.91 X10^3/ul (0.83-4.51); Lymphocyte % 19.4 % (19-41); Mean Corp Hgb Conc 33.3 g/dL (32-36); Mean Corpuscular Hgb 34.4 pg (27.0-32.0); Mean Corpuscular Volume 103.3 fL (80-94); Mean Platelet Vol. 9.6 fl (6.2-12.0); Monocyte# 1.12 X10^3/uL; Monocyte% 11.4 % (0-10); NRBC Flagged by Analyzer 0 % (0-5); Neutrophil # 6.65 X10^3/uL (2.7-7.7); Neutrophil % 67.4 % (47-70); Platelet Count 174 K/mm3 (150-450); RBC Distribution Width CV 15.8 % (11.6-14.6); RBC Distribution Width SD 59.4 fl (35.1-43.9); Red Blood Count 2.99 M/mm3 (4.6-6.2); White Blood Count 9.9 K/mm3 (4.4-11.0)
[2021-04-06 21:46] LABS: International Normalized Ratio 1.7; Prothrombin Time (Protime)PT. 18.9 SECONDS (11.7-14.9)
[2021-04-06 21:58] LABS: ALB/GLOB Ratio 0.3 RATIO (0.9-2.4); AST(SGOT) 106 U/L (15-37); Alanine Aminotransfer ALT/SGPT 53 U/L (16-61); Albumin, Serum 1.4 g/dL (3.2-5.0); Alkaline Phosphatase 176 U/L (45-117); Anion Gap 11 (5-15); BUN 13 mg/dL (7-18); Calcium,Total 7.8 mg/dL (8.5-10.1); Chloride 104 mmol/L (98-107); Creatinine, Serum 0.81 mg/dL (0.70-1.30); EST Glomerular Filtration Rate 102 mL/min (>60); Est Glom Filt Rate - Afr Amer 123 mL/min (>60); Estimated Creatinine Clearance 100.71 ml/min; Globulin 5.1 g/dL (2.2-4.2); Glucose 99 mg/dL (74-106); Lipase 113 U/L (73-393); Potassium 3.4 mmol/L (3.5-5.1); Protein, Total 6.5 g/dL (6.4-8.2); Sodium Level 134 mmol/L (136-145)
[2021-04-06 22:02] VITALS: BP 110/73; PULSE 87; RESP 18; O2SAT 98
[2021-04-06] MEDS: NSY 0.9% NS BOLUS 1000 ML IV (22:07)
[2021-04-06 22:09] LABS: Lactic Acid 1.6 mmol/L (0.4-1.9)
[2021-04-06] MEDS: 0.9% Normal Saline 1,000 ML 999 ML IV (22:32)
[2021-04-06 23:09] VITALS: BP 109/73; PULSE 81; RESP 18; O2SAT 99
[2021-04-06 23:25] LABS: Bacteria 0 SEEN /hpf (None Seen); Mucous, Urine 0 SEEN /hpf (<or=2+); Squamous Epithelial Cells - UA 0 SEEN /hpf (0-5)
[2021-04-06 23:27] LABS: Color, Urine Amber (Yellow); Glucose, Dipstick Normal (Normal); Ketone-Dipstick 5 mg/dl (Negative); Leukocyte Esterase-Dipstick 25 /ul (Negative); Nitrite-Dipstick Negative (Negative); Occult Blood-Urine 10 /ul (Negative); Protein-Dipstick 30 mg/dl (Negative); Specific Gravity, Urine 1.015 (1.002-1.030); Urine Clarity Cloudy (Clear); Urine Urobilinogen 4 mg/dl (Normal)
[2021-04-06 23:33] LABS: Red Blood Cells-Urine 0-5 SEEN /hpf (0-5); Urine Bilirubin Dipstick 3 mg/dL (Negative); White Blood Cells 5-10 SEEN /hpf (0-5); White Cell Cast 0-5 SEEN /lpf (None Seen)
--- NOTE | 2021-04-06 23:49 | HP.PCM.HOS_ITS ---
HPI - General General Date of Admission: 04/06/21 Date of Service: 04/06/21 Chief Complaint: Syncope HPI Narrative HERB RICHARDS, is a 60 M with past medical history of chronic alcohol use disorder who presents to the emergency department with syncope. He reports feeling lightheaded and blacking out multiple times and for which reason paramedics has been to his home. His unable to give accurate timeline. At least in the past 3 days he has been having his symptoms every day. Further, he reports diarrhea; lightheadedness; nausea and anorexia. Reportedly at the emergency department he had 2 loose bowel movements. He reported previously he was a heavy drinker but in the past month he has been drinking 1 beer per day. His last drink was on the same day of presentation. Patient was at a hospital on 03/27/2021 for hyperkalemia and debility. He was discharged on 03/28/2021. [facility] Medical History Alcohol abuse Anxiety Ascites Bipolar disorder Cirrhosis Depression GI bleed Hepatitis Seizure Smoker Home Medications atorvastatin 40 mg PO QHS 03/26/20 [History Last Taken 03/26/21] citalopram 20 mg PO DAILY 12/07/20 [History Last Taken 03/27/21] cetirizine 10 mg PO DAILY PRN PRN #0 12/14/20 [Rx Last Taken 03/27/21] metoprolol succinate 50 mg PO DAILY #0 12/14/20 [Rx Last Taken 03/27/21] folic acid 1 mg PO DAILY 03/22/21 [History Last Taken 03/27/21] mirtazapine 45 mg PO QHS 03/22/21 [History Last Taken 03/26/21] quetiapine [Seroquel] 300 mg PO QHS 03/22/21 [History Last Taken 03/26/21] thiamine HCl (vitamin B1) [Vitamin B-1] 100 mg PO BIDCM 03/22/21 [History Last Taken 03/27/21] cephalexin 500 mg PO Q8 #21 capsule 03/25/21 [Rx Last Taken 03/27/21] cholecalciferol (vitamin D3) 1,250 mcg PO MO 03/25/21 [History Last Taken 03/25/21] furosemide [Lasix] 40 mg PO DAILY 03/25/21 [History Last Taken 03/27/21] lactulose 10 g PO DAILY #480 ml 03/25/21 [Rx Last Taken 03/27/21] levetiracetam 500 mg PO BID 03/25/21 [History Last Taken 03/27/21] magnesium oxide 400 mg PO DAILY 03/25/21 [History Last Taken 03/27/21] multivitamin 1 tab PO DAILY 03/25/21 [History Last Taken 03/27/21] spironolactone [Aldactone] 25 mg PO DAILY 03/25/21 [History Last Taken 03/26/21] Allergy/AdvReac Type Severity Reaction Status Date / Time lisinopril Allergy Angioedema Verified 03/25/21 10:52 peanut Allergy Hives Verified 03/25/21 10:52 Family History Father Myocardial infarction Mother Stomach cancer Social History household members: none housing: apartment Smoking Status: Current every day smoker tobacco type: cigarettes alcohol intake: current alcohol intake frequency: 0-2 drinks per day substance use type: marijuana ROS ROS Narrative 12 point review of system is negative except as stated in HPI. Vital Signs Vital Signs Vital Signs: 04/06/21 20:54 04/06/21 22:02 04/06/21 23:09 Temperature 98.1 F Temperature Source Temporal Pulse Rate 85 87 81 Respiratory Rate 16 18 18 Respiratory Effort Normal Blood Pressure 115/70 110/73 109/73 Blood Pressure Mean 85 85 85 Pulse Ox 98 98 99 Oxygen Delivery Method Room Air Room Air Room Air Weight Weight: 82.7 kg Body Mass Index (BMI) 25.4 Physical Exam Narrative Physical exam: General:Hypo-alert Head: Normocephalic, atraumatic, no tenderness ENT, no trauma, moist mucous membranes, no rhinorrhea Neck: Nontender, full range of motion, no spinal tenderness, deformities, step- off CVS: Regular rate and rhythm Respiratory : Coarse Abdomen: Soft, nontender. Distended, normal bowel sounds. : Deferred Extremities: Nontender full range of motion, no trauma Skin: Jaundice Neuro: Alert, oriented, cranial nerves II through XII grossly intact. Results Lab / Micro Data Result Diagrams: 04/06/21 21:25 04/06/21 21:25 Labs: Laboratory Results - last 24 hr 04/06/21 04/06/21 04/06/21 21:25 21:25 21:25 WBC 9.9 RBC 2.99 L Hgb 10.3 L Hct 30.9 L MCV 103.3 H MCH 34.4 H MCHC 33.3 RDW Std Deviation 59.4 H RDW Coeff of William 15.8 H Plt Count 174 MPV 9.6 Immature Gran % (Auto) 0.600 Neut % (Auto) 67.4 Lymph % (Auto) 19.4 [place] % (Auto) 11.4 H Eos % (Auto) 1.0 Baso % (Auto) 0.2 Absolute Neuts (auto) 6.7 Absolute Lymphs (auto) 1.91 Nucleated RBC % 0 PT 18.9 H INR 1.7 Sodium 134 L Potassium 3.4 L Chloride 104 Carbon Dioxide 19.0 L Anion Gap 11 BUN 13 Creatinine 0.81 Estim Creat Clear Calc 100.71 Est GFR (MDRD) Af Amer 123 Est GFR (MDRD) Non-Af 102 BUN/Creatinine Ratio 16.0 Glucose 99 Lactic Acid Calcium 7.8 L Total Bilirubin 3.90 H AST 106 H ALT 53 Alkaline Phosphatase 176 H Ammonia Total Protein 6.5 Albumin 1.4 L Globulin 5.1 H Albumin/Globulin Ratio 0.3 L Lipase 113 Urine Color Urine Clarity Urine pH Ur Specific Pool Urine Protein Urine Glucose (UA) Urine Ketones Urine Occult Blood Urine Nitrite Urine Bilirubin Urine Urobilinogen Ur Leukocyte Esterase Urine RBC Urine WBC Ur Squamous Epith Cells Urine Bacteria WBC Casts Urine Mucus Ethyl Alcohol 04/06/21 04/06/21 04/06/21 21:25 21:25 21:25 WBC RBC Hgb Hct MCV MCH MCHC RDW Std Deviation RDW Coeff of William Plt Count MPV Immature Gran % (Auto) Neut % (Auto) Lymph % (Auto) [place] % (Auto) Eos % (Auto) Baso % (Auto) Absolute Neuts (auto) Absolute Lymphs (auto) Nucleated RBC % PT INR Sodium Potassium Chloride Carbon Dioxide Anion Gap BUN Creatinine Estim Creat Clear Calc Est GFR (MDRD) Af Amer Est GFR (MDRD) Non-Af BUN/Creatinine Ratio Glucose Lactic Acid 1.6 Calcium Total Bilirubin AST ALT Alkaline Phosphatase Ammonia 57.0 H Total Protein Albumin Globulin Albumin/Globulin Ratio Lipase Urine Color Urine Clarity Urine pH Ur Specific Pool Urine Protein Urine Glucose (UA) Urine Ketones Urine Occult Blood Urine Nitrite Urine Bilirubin Urine Urobilinogen Ur Leukocyte Esterase Urine RBC Urine WBC Ur Squamous Epith Cells Urine Bacteria WBC Casts Urine Mucus Ethyl Alcohol 4.0 04/06/21 23:00 WBC RBC Hgb Hct MCV MCH MCHC RDW Std Deviation RDW Coeff of William Plt Count MPV Immature Gran % (Auto) Neut % (Auto) Lymph % (Auto) [place] % (Auto) Eos % (Auto) Baso % (Auto) Absolute Neuts (auto) Absolute Lymphs (auto) Nucleated RBC % PT INR Sodium Potassium Chloride Carbon Dioxide Anion Gap BUN Creatinine Estim Creat Clear Calc Est GFR (MDRD) Af Amer Est GFR (MDRD) Non-Af BUN/Creatinine Ratio Glucose Lactic Acid Calcium Total Bilirubin AST ALT Alkaline Phosphatase Ammonia Total Protein Albumin Globulin Albumin/Globulin Ratio Lipase Urine Color Roxy Urine Clarity Cloudy Urine pH 6.0 Ur Specific Pool 1.015 Urine Protein 30 H Urine Glucose (UA) Normal Urine Ketones 5 H Urine Occult Blood 10 H Urine Nitrite Negative Urine Bilirubin 3 H Urine Urobilinogen 4 H Ur Leukocyte Esterase 25 H Urine RBC 0-5 SEEN Urine WBC 5-10 SEEN Ur Squamous Epith Cells 0 SEEN Urine Bacteria 0 SEEN WBC Casts 0-5 SEEN Urine Mucus 0 SEEN Ethyl Alcohol Rhythm Strip Rhythm Strip: Sinus Rhythm Rate: 85 Ectopy: None Radiology Impression Brain CT 04/06/21 21:10 IMPRESSION: Chronic involutional changes of the brain. Electronically Signed: Willam Hudson MD at 23:14 EDT , Service support , Chest X-Ray 04/06/21 21:10 IMPRESSION: Subsegmental atelectasis right lung base Electronically Signed: Willam Hudson MD at 22:00 EDT , Service support , Assessment & Plan Assessment/Plan (1) Syncope: QUALIFIERS: Syncope type: unspecified Qualified Code(s): R55 - Syncope and collapse (2) Diarrhea: QUALIFIERS: Diarrhea type: unspecified type Qualified Code(s): R19.7 - Diarrhea, unspecified (3) Weakness: (4) Cirrhosis of liver: QUALIFIERS: Hepatic cirrhosis type: alcoholic cirrhosis Ascites presence: with ascites Qualified Code(s): K70.31 - Alcoholic cirrhosis of liver with ascites (5) Cancer of liver: QUALIFIERS: Liver malignancy type: unspecified liver malignancy Qualified Code(s): C22.9 - Malignant neoplasm of liver, not specified as primary or secondary (6) Encephalopathy, hepatic: (7) Adult failure to thrive: (8) Debility: PLAN: Syncope EKG with no T wave or ST abnormalities. Check echocardiogram admit to progressive care unit. Check orthostatic vitals. Diarrhea: C. difficile ordered in the emergency department. Enteric pathogen panel; ova and parasites ordered. Debility/Weakness/ Adult Failure to thrive. PT and OT to work with patients. Case management consult. Atelectasis: Radiologist impression of chest x-ray- subsegmental atelectasis at the right lung base. Check chest x-ray image was independently interpreted. I agree with radiologist interpretation. Incentive spirometer ordered. Hepatic encephalopathy/cirrhosis of liver/cancer of liver/ascites: Emergency department labs reviewed showed ammonia 57. Liver biochemistry and bilirubin is chronically elevated. Rifaximin ordered. Paracentesis ordered with ascitic fluid studies. History of alcoholism: Thiamine; multivitamin and folic acid ordered. Normocytic anemia: Review emergency department labs showed hemoglobin of 10.3; stable DVT prophylaxis: Subcutaneous Lovenox ordered.
[2021-04-07] VITALS (18 sets, daily range): BP systolic 103–136; BP diastolic 62–85; PULSE 70–95; RESP 15–18; TEMP 36.3–36.9; O2SAT 96–100; BMI 25.7
--- NOTE | 2021-04-07 00:13 | ECHOCS_ITS ---
Reason For Study: SYNCOPE Procedure This was a 2D Doppler, Color Flow transthoracic echocardiogram. The study was technically difficult. Contrast injection was performed. Exam performed portable in patient room. Left Ventricle Normal LV size. Left ventricular systolic function is normal. The estimated ejection fraction is 60 %. Stage 1 diastolic dysfunction. No regional wall motion abnormalities noted. Right Ventricle Normal RV size. Normal systolic function. Tricuspid Valve Normal tricuspid valve. Mild tricuspid valve insufficiency. Aortic Valve Trisinus/trileaflet aortic valve. Mild focal aortic valve calcification. Pulmonic Valve Normal pulmonic valve. Great Vessels Normal aortic root. The pulmonary artery is normal size. Normal inferior vena cava. Pericardium/Pleural No pericardial effusion. Medication Diluted definity 3ml given slow IV push to enhance endocardial definition. MMode/2D Measurements & Calculations LVIDd: 3.8 cm IVSd: 1.2 cm Ao root diam: 2.4 cm LVIDs: 2.4 cm LVPWd: 1.1 cm RVDd: 3.0 cm FS: 36.7 % LAV(MOD-bp): 27.1 ml LVAd ap4: 37.8 cm2 LVAd ap2: 30.8 cm2 LAV(MOD-bp) Indexed: 13.3 ml/m2 LVLd ap4: 8.7 cm LVLd ap2: 8.5 cm LAV(MOD-sp2): 27.1 ml EDV(MOD-sp4): 137.6 ml EDV(MOD-sp2): 89.8 ml LAV(MOD-sp4): 21.4 ml EDV(sp4-el): 140.2 ml EDV(sp2-el): 94.3 ml LVAs ap4: 19.1 cm2 LVAs ap2: 17.0 cm2 LVLs ap4: 7.1 cm LVLs ap2: 6.9 cm ESV(MOD-sp4): 42.5 ml ESV(MOD-sp2): 34.6 ml ESV(sp4-el): 43.6 ml ESV(sp2-el): 35.5 ml EF(MOD-sp4): 69.1 % EF(MOD-sp2): 61.5 % EF(sp4-el): 68.9 % SV(MOD-sp4): 95.1 ml SV(MOD-sp2): 55.2 ml SV(sp4-el): 96.6 ml LA dimension(2D): 3.3 cm LA A4 area: 9.2 cm2 RA A4 area: 8.8 cm2 Time Measurements MV dec time: 0.20 sec Doppler Measurements & Calculations MV E max ron: 54.0 cm/sec Lat Peak E' Ron: 6.7 cm/sec Med Peak E' Ron: 6.0 cm/sec MV A max ron: 92.9 cm/sec E/E' lat: 8.1 E/E' med: 9.0 MV E/A: 0.58 Ao V2 max: 141.8 cm/sec LV V1 max: 84.5 cm/sec PA V2 max: 105.7 cm/sec Ao max P.0 mmHg LV V1 max P.9 mmHg TR max ron: 230.2 cm/sec TR max P.2 mmHg ECHO/Echo Complete W/ Contrast Interpretation Summary Normal LV size. Left ventricular systolic function is normal. The estimated ejection fraction is 60 %. Stage 1 diastolic dysfunction. Contrast injection was performed. Ordering Physician: Clay Choi Referring Physician: [facility] Performed By: Lyric Collins, SANJEEV, RVT
--- NOTE | 2021-04-07 00:41 | US_ITS ---
PROCEDURE: ULTRASOUND GUIDED PARACENTESIS CLINICAL HISTORY: Male, 60 years old. ascites CONSENT: Time-Out Called: Yes. Consent form signed: Yes. PT-PTT Levels Checked: Yes. SEDATION: TECHNIQUE: FINDINGS: Under ultrasound guidance and following proper antiseptic preparation and local anesthesia, a 6 [place] draining catheter was inserted in the right lower quadrant. 6920 cc of clear yellow fluid aspirated. 120 cc of fluid were sent to the lab for evaluation. US/Paracentesis with US IMPRESSION: Uneventful thoracentesis. Electronically Signed: Zaki Shankar, at 16:25 EDT Tel , Service support ,
[2021-04-07] MEDS: rifAXIMin 550 MG Tablet PO ×2 (05:50→22:50)
[2021-04-07] MEDS: Vancomycin 125 MG/5 ML Susp PO.SYRINGE PO ×4 (06:10→22:50)
[2021-04-07 06:44] LABS: Absolute Lymphocyte Count 1.75 X10^3/uL (0.83-4.51); Absolute Neutrophil Count 5.2 X10^3/uL (2.0-7.7); Basophil# 0.05 X10^3/uL; Basophil% 0.6 % (0-1); Eosinophil# 0.12 X10^3/uL; Eosinophils% 1.5 % (0-5); Hematocrit 28.7 % (40-54); Hemoglobin 9.5 g/dL (13.0-16.5); Lymphocyte # 1.75 X10^3/ul (0.83-4.51); Lymphocyte % 21.8 % (19-41); Mean Corp Hgb Conc 33.1 g/dL (32-36); Mean Corpuscular Hgb 34.2 pg (27.0-32.0); Mean Corpuscular Volume 103.2 fL (80-94); Mean Platelet Vol. 9.4 fl (6.2-12.0); Monocyte# 0.83 X10^3/uL; Monocyte% 10.3 % (0-10); NRBC Flagged by Analyzer 0 % (0-5); Neutrophil # 5.23 X10^3/uL (2.7-7.7); Neutrophil % 65.3 % (47-70); Platelet Count 162 K/mm3 (150-450); RBC Distribution Width CV 15.8 % (11.6-14.6); Red Blood Count 2.78 M/mm3 (4.6-6.2)
[2021-04-07 07:09] LABS: ALB/GLOB Ratio 0.3 RATIO (0.9-2.4); AST(SGOT) 95 U/L (15-37); Alanine Aminotransfer ALT/SGPT 49 U/L (16-61); Albumin, Serum 1.2 g/dL (3.2-5.0); Alkaline Phosphatase 160 U/L (45-117); Anion Gap 7 (5-15); BUN 12 mg/dL (7-18); BUN/Creat Ratio 17.8 RATIO (10-20); Calcium,Total 7.3 mg/dL (8.5-10.1); Chloride 108 mmol/L (98-107); Creatinine, Serum 0.67 mg/dL (0.70-1.30); EST Glomerular Filtration Rate 127 mL/min (>60); Est Glom Filt Rate - Afr Amer 153 mL/min (>60); Estimated Creatinine Clearance 121.75 ml/min; Globulin 4.5 g/dL (2.2-4.2); Glucose 94 mg/dL (74-106); Potassium 3.3 mmol/L (3.5-5.1); Protein, Total 5.7 g/dL (6.4-8.2); Sodium Level 133 mmol/L (136-145)
[2021-04-07] MEDS: Multivitamins,Therapeutic Tablet 1 TABLET PO (08:04)
[2021-04-07] MEDS: Folic Acid 1 MG Tablet PO (08:05)
[2021-04-07] MEDS: Thiamine Hydrochloride 100 MG Tablet PO (08:05)
[2021-04-07] MEDS: Menthol/Lanolin/Calamine/Znox 113 GM Tube 1 APPLIC TOPICAL ×2 (14:20→22:51)
--- NOTE | 2021-04-07 14:22 | PN.HOSP_ITS ---
Subjective Subjective Patient seen and examined. He was admitted through the ED on 04/06/2021 with a complaint of syncope. He felt lightheaded and blacked out several times and said his symptoms have been going on for about 3 days and he had associated diarrhea and lightheadedness as well as anorexia and nausea. He has been managed for syncope likely due to dehydration from diarrhea. C. difficile was positive. Patient is more alert today still complains of having diarrhea. He denies any shortness of breath no palpitations or dizziness, no any other symptoms. Review of systems otherwise negative. He has remained hemodynamically stable. Objective Data Objective Data Vital Signs: Vital Signs Temp Pulse Resp BP Pulse Ox 98.5 F 77 16 121/85 H 100 04/07/21 11:26 04/07/21 11:44 04/07/21 11:26 04/07/21 11:26 04/07/21 11:26 Oxygen Delivery Method Room Air Weight: 184 lb 8.43 oz Body Mass Index (BMI) 25.7 Orthostatic Vital Signs Start: 04/07/21 00:47 Freq: 0600 Status: Active Protocol: Activity Type Activity Date Activity User E-Sign Co-Sign Detail Recorded Client Recorded Date Recorded By Document 04/07/21 05:50 [facility] [id number] 04/07/21 05:58 [facility] 04/07/21 05:50 Orthostatic Vitals Standing -Blood Pressure (90/60-120/80) 103/65 -Extremity Use Left Arm -Pulse Rate (60-100) 85 Sitting -Blood Pressure (90/60-120/80) 120/62 -Extremity Use Left Arm -Pulse Rate (60-100) 75 Lying -Blood Pressure (90/60-120/80) 117/74 -Extremity Use Left Arm -Pulse Rate (60-100) 77 Intake & Output: Intake and Output for Last 24 Hours 04/05/21 04/06/21 04/07/21 23:59 23:59 23:59 Intake Total 1400 / 1400 Balance 1400 / 1400 Lab / Micro Data Result Diagrams: 04/07/21 06:20 04/07/21 06:20 Labs: Laboratory Results - last 24 hr 04/06/21 04/06/21 04/06/21 21:25 21:25 21:25 WBC 9.9 RBC 2.99 L Hgb 10.3 L Hct 30.9 L MCV 103.3 H MCH 34.4 H MCHC 33.3 RDW Std Deviation 59.4 H RDW Coeff of William 15.8 H Plt Count 174 MPV 9.6 Immature Gran % (Auto) 0.600 Neut % (Auto) 67.4 Lymph % (Auto) 19.4 [place] % (Auto) 11.4 H Eos % (Auto) 1.0 Baso % (Auto) 0.2 Absolute Neuts (auto) 6.7 Absolute Lymphs (auto) 1.91 Nucleated RBC % 0 PT 18.9 H INR 1.7 Sodium 134 L Potassium 3.4 L Chloride 104 Carbon Dioxide 19.0 L Anion Gap 11 BUN 13 Creatinine 0.81 Estim Creat Clear Calc 100.71 Est GFR (MDRD) Af Amer 123 Est GFR (MDRD) Non-Af 102 BUN/Creatinine Ratio 16.0 Glucose 99 Lactic Acid Calcium 7.8 L Total Bilirubin 3.90 H AST 106 H ALT 53 Alkaline Phosphatase 176 H Ammonia Total Protein 6.5 Albumin 1.4 L Globulin 5.1 H Albumin/Globulin Ratio 0.3 L Lipase 113 Urine Color Urine Clarity Urine pH Ur Specific [place] Urine Protein Urine Glucose (UA) Urine Ketones Urine Occult Blood Urine Nitrite Urine Bilirubin Urine Urobilinogen Ur Leukocyte Esterase Urine RBC Urine WBC Ur Squamous Epith Cells Urine Bacteria WBC Casts Urine Mucus Ethyl Alcohol 04/06/21 04/06/21 04/06/21 21:25 21:25 21:25 WBC RBC Hgb Hct MCV MCH MCHC RDW Std Deviation RDW Coeff of William Plt Count MPV Immature Gran % (Auto) Neut % (Auto) Lymph % (Auto) [place] % (Auto) Eos % (Auto) Baso % (Auto) Absolute Neuts (auto) Absolute Lymphs (auto) Nucleated RBC % PT INR Sodium Potassium Chloride Carbon Dioxide Anion Gap BUN Creatinine Estim Creat Clear Calc Est GFR (MDRD) Af Amer Est GFR (MDRD) Non-Af BUN/Creatinine Ratio Glucose Lactic Acid 1.6 Calcium Total Bilirubin AST ALT Alkaline Phosphatase Ammonia 57.0 H Total Protein Albumin Globulin Albumin/Globulin Ratio Lipase Urine Color Urine Clarity Urine pH Ur Specific [place] Urine Protein Urine Glucose (UA) Urine Ketones Urine Occult Blood Urine Nitrite Urine Bilirubin Urine Urobilinogen Ur Leukocyte Esterase Urine RBC Urine WBC Ur Squamous Epith Cells Urine Bacteria WBC Casts Urine Mucus Ethyl Alcohol 4.0 06/19/21 06/20/21 06/20/21 23:00 06:20 06:20 WBC 8.0 RBC 2.78 L Hgb 9.5 L Hct 28.7 L MCV 103.2 H MCH 34.2 H MCHC 33.1 RDW Std Deviation 60.0 H RDW Coeff of William 15.8 H Plt Count 162 MPV 9.4 Immature Gran % (Auto) 0.500 Neut % (Auto) 65.3 Lymph % (Auto) 21.8 [place] % (Auto) 10.3 H Eos % (Auto) 1.5 Baso % (Auto) 0.6 Absolute Neuts (auto) 5.2 Absolute Lymphs (auto) 1.75 Nucleated RBC % 0 PT INR Sodium 133 L Potassium 3.3 L Chloride 108 H Carbon Dioxide 18.0 L Anion Gap 7 BUN 12 Creatinine 0.67 L Estim Creat Clear Calc 121.75 Est GFR (MDRD) Af Amer 153 Est GFR (MDRD) Non-Af 127 BUN/Creatinine Ratio 17.8 Glucose 94 Lactic Acid Calcium 7.3 L Total Bilirubin 3.40 H AST 95 H ALT 49 Alkaline Phosphatase 160 H Ammonia Total Protein 5.7 L Albumin 1.2 L Globulin 4.5 H Albumin/Globulin Ratio 0.3 L Lipase Urine Color Roxy Urine Clarity Cloudy Urine pH 6.0 Ur Specific [place] 1.015 Urine Protein 30 H Urine Glucose (UA) Normal Urine Ketones 5 H Urine Occult Blood 10 H Urine Nitrite Negative Urine Bilirubin 3 H Urine Urobilinogen 4 H Ur Leukocyte Esterase 25 H Urine RBC 0-5 SEEN Urine WBC 5-10 SEEN Ur Squamous Epith Cells 0 SEEN Urine Bacteria 0 SEEN WBC Casts 0-5 SEEN Urine Mucus 0 SEEN Ethyl Alcohol Micro: Microbiology 04/07/21 01:18 Stool Enteric Bacteriology - Final 04/06/21 01:18 Stool C. difficile GDH Antigen & Toxins - Final Toxigenic C. difficile 04/06/21 01:18 Stool C. difficile DNA Amplification - Final Radiography Diagnostic Testing: Radiology Impression Brain CT 04/06/21 21:10 IMPRESSION: Chronic involutional changes of the brain. Electronically Signed: Willam Hudson MD at 23:14 EDT , Service support , Chest X-Ray 04/06/21 21:10 IMPRESSION: Subsegmental atelectasis right lung base Electronically Signed: Willam Hudson MD at 22:00 EDT , Service support , Rhythm Strip Rhythm Strip: Sinus Rhythm Rate: 85 Ectopy: None Physical Exam Const alert, oriented x3 and no apparent distress Orientation / Consciousness: lethargic Exam Limitations: no limitations HEENT head/scalp atraumatic and moist oral mucous membranes Head and Scalp: normocephalic Mouth: dry mucous membranes Eyes PERRL, EOMs intact bilaterally and conjunctivae normal Neck no lymphadenopathy, supple and no JVD Resp normal respiratory effort, no retractions, no use of accessory muscles and clear to auscultation bilaterally Cardio regular rate, regular rhythm, S1 normal heart sound, S2 normal heart sound and no murmurs GI GI Narrative: abdomen distended, positive fluid thrill. not tender to touch Extremity normal to inspection, full ROM and no clubbing, cyanosis or edema Peripheral Pulses: Yes pulses 2+ throughout Skin no rashes or lesions noted Neuro oriented x3 Sensorium / Orientation: awake and alert Psych Psych Narrative: flat affect Assessment & Plan Assessment/Plan (1) Syncope: QUALIFIERS: Syncope type: unspecified Qualified Code(s): R55 - S yncope and collapse (2) Diarrhea: QUALIFIERS: Diarrhea type: unspecified type Qualified Code(s): R19.7 - Diarrhea, unspecified (3) C. difficile diarrhea: PLAN: #Syncope due to dehydration * Dehydration was likely due to diarrhea from C. difficile. Be hydrated gently with IV fluids. * Orthostatics were negative. * PT/OT on board. * Fall precautisons #C Diff diarrhea * C. difficile test was positive. On oral vancomycin * #Hypokalemia: K is 3.3. Will replace and trend. #Ascites due to liver cirrhosis * Ammonia was also elevated at 57. Patient already having diarrhea. Rifaximin ordered. To have paracentesis tomorrow. #Debility and failure to thrive * PT/OT on board * fall precautions * #History of alcohol dependence * On thiamine, folic acid and Multivite. Not in withdrawal. * DVT prophylaxis: lovenox Charges/Coding Visit Charges Inpatient E&M: 42999 Subs Hosp L3
[2021-04-07] MEDS: 0.9% Saline Lock 10 ML Syringe IV (19:56)
[2021-04-07] MEDS: Ondansetron 4 MG/2 ML Vial IV (19:56)
[2021-04-07] MEDS: Mag Hydrox/Al Hydrox/Simeth 30 ML UDC PO (20:09)
[2021-04-08] VITALS (10 sets, daily range): BP systolic 98–133; BP diastolic 72–84; PULSE 90–110; RESP 15–24; TEMP 36.4–36.7; O2SAT 96–100
--- NOTE | 2021-04-08 | IMM_PTH ---
PATIENT: HERB RICHARDS LOC: PCU U#:[id number] AGE/SX: 60/M [facility] RE04/07/[address]: Dr. Kamilah Avila MD : 1960 BED: 1 DIS: 04/09/2021 SPEC #: [id number] RECD: 04/10/21 13:10 STATUS: CROW RERegina #: [id number] ERASMO: 04/08/21 00:[address]: Kamilah Avila DEPT: IMMUNOHISTOCHEMISTRY RECD BY: Kyleigh Gibbons ENTERED: 04/10/21 13:12 SP TYPE: IMMUNO OTHR DR: Dr. Clay Choi MD [facility] Tissues: PARACENTESIS FLUID Procedures: Calretinin (initial) CK5-6 (add) CK7 (add) P53 (add) Vimentin (add) P40 (add) PHYSICIAN & INSTITUTION [place] [address] SPECIMEN INFORMATION: Tissue Source: Paracentesis fluid Clinical Info: Ascites Specimen Number: [id number] CPT code: 39527, 61886 x5 METHODOLOGY: Deparaffinized sections of prefer/formalin-fixed tissue or PAP/DQ stained slides are incubated with monoclonal/polyclonal antibodies/oligonucleotide probes. Localization is made via biotin free immunoperoxidase method. Appropriate controls are performed and reacted as expected. Results on target cell population are indicated in the following table: RESULTS: ANTIBODY / CLONE RESULT P40 (BC28) negative CALRET (polyclonal) positive CK5-6 (D5 & 1684) positive CK7 (OV-TL12/30) positive Vimentin (V9) positive P53 (DO-7) negative These tests were developed and their performance characteristics determined by [facility]. They may not have been cleared or approved by the U.S. Food and Drug Administration. The FDA has determined that such clearance or approval is not necessary. The above immunohistochemical/dualISH markers are ordered and reviewed by the Pathologist. INTERPRETATION: Paracentesis fluid: No evidence of malignancy. AM:benita 04/11/2021
[2021-04-08] MEDS: Vancomycin 125 MG/5 ML Susp PO.SYRINGE PO ×4 (05:52→23:00)
[2021-04-08] MEDS: Menthol/Lanolin/Calamine/Znox 113 GM Tube 1 APPLIC TOPICAL ×3 (05:52→22:57)
[2021-04-08 06:14] LABS: Absolute Lymphocyte Count 2.02 X10^3/uL (0.83-4.51); Basophil# 0.06 X10^3/uL; Basophil% 0.5 % (0-1); Eosinophil# 0.08 X10^3/uL; Eosinophils% 0.7 % (0-5); Hematocrit 31.6 % (40-54); Hemoglobin 10.7 g/dL (13.0-16.5); Lymphocyte # 2.02 X10^3/ul (0.83-4.51); Lymphocyte % 17.6 % (19-41); Mean Corp Hgb Conc 33.9 g/dL (32-36); Mean Corpuscular Hgb 34.4 pg (27.0-32.0); Mean Corpuscular Volume 101.6 fL (80-94); Mean Platelet Vol. 9.3 fl (6.2-12.0); Monocyte# 1.32 X10^3/uL; Monocyte% 11.5 % (0-10); NRBC Flagged by Analyzer 0 % (0-5); Neutrophil # 7.97 X10^3/uL (2.7-7.7); Neutrophil % 69.3 % (47-70); Platelet Count 209 K/mm3 (150-450); RBC Distribution Width CV 15.6 % (11.6-14.6); RBC Distribution Width SD 58.9 fl (35.1-43.9); Red Blood Count 3.11 M/mm3 (4.6-6.2); White Blood Count 11.5 K/mm3 (4.4-11.0)
[2021-04-08 06:35] LABS: Anion Gap 8 (5-15); BUN 12 mg/dL (7-18); BUN/Creat Ratio 20.9 RATIO (10-20); Calcium,Total 7.5 mg/dL (8.5-10.1); Chloride 105 mmol/L (98-107); Creatinine, Serum 0.57 mg/dL (0.70-1.30); EST Glomerular Filtration Rate 152 mL/min (>60); Est Glom Filt Rate - Afr Amer 184 mL/min (>60); Estimated Creatinine Clearance 143.11 ml/min; Glucose 109 mg/dL (74-106); Potassium 3.2 mmol/L (3.5-5.1); Sodium Level 133 mmol/L (136-145)
[2021-04-08] MEDS: Thiamine Hydrochloride 100 MG Tablet PO (09:10)
[2021-04-08] MEDS: Multivitamins,Therapeutic Tablet 1 TABLET PO (09:10)
[2021-04-08] MEDS: Folic Acid 1 MG Tablet PO (09:10)
[2021-04-08] MEDS: rifAXIMin 550 MG Tablet PO ×2 (09:11→22:57)
--- NOTE | 2021-04-08 10:50 | CASEMGMT ---
Patient's Chimney Builder Helper with [facility] is Klarsisa Lorenzana. SW called Klarissa and left her a voice mail letting her know that patient has been admitted to [facility]. Chelsey GUNTER
[2021-04-08 12:41] LABS: Magnesium 1.3 mg/dL (1.6-2.6)
[2021-04-08] MEDS: Potassium Chloride Oral Tablet 20 MEQ 60 MEQ PO (12:56)
--- NOTE | 2021-04-08 13:40 | FLU_PTH ---
PATIENT: HERB RICHRADS LOC: PCU U#:[id number] AGE/SX: 60/M ROOM: [facility] RE04/07/[address]: Dr. Kamilah Avila MD : 1960 BED: 1 DIS: 04/09/2021 SPEC #: [id number] RECD: 04/08/21 14:10 STATUS: CROW RERegina #: [id number] ERASMO: 04/08/21 13:[address]: Kamilah Avila DEPT: CYTOLOGY RECD BY: Lauren Espino ENTERED: 04/09/21 09:52 SP TYPE: Fluid OTHR DR: Dr. Clay Choi MD [facility] Tissues: PARACENTESIS FLUID Procedures: Special Stain Group II Surgery Specimen Level IV Cytospin Fluid HEADER OPERATION: Paracentesis PRE-OP DIAGNOSIS: Ascites TISSUE SUBMITTED: Paracentesis fluid for cytology DIAGNOSIS CYTOLOGY Paracentesis fluid for cytology (cytospin and cell block): Negative for malignant cells. See comment. AM:benita 04/10/2021 COMMENT Immunohistochemistry ([id number]) supports the above diagnosis. CYTOLOGY STUDY Slides are reviewed. CYTOLOGY GROSS Received is 100 ml of yellow cloudy fluid labeled with the patient's name and and designated per the requisition as paracentesis. Submitted for cytology preparation including cell block. / benita 04/09/2021 TC:5 CPT: 92321, 63988
--- NOTE | 2021-04-08 15:51 | PCM.PN.HOSP ---
Subjective Subjective Patient was seen and examined. He is going for paracentesis today. He denied having any diarrhea today. Objective Data Objective Data Vital Signs: Vital Signs Temp Pulse Resp BP Pulse Ox 97.9 F 94 24 H 129/81 H 96 04/08/21 09:20 04/08/21 13:47 04/08/21 13:47 04/08/21 13:47 04/08/21 09:20 Oxygen Delivery Method [3] Room Air Oxygen Delivery Method [2] Room Air Oxygen Delivery Method [1 ( Room Air Initial Baseline)] Oxygen Delivery Method Room Air Weight: 83.7 kg Body Mass Index (BMI) 25.7 Intake & Output: Intake and Output for Last 24 Hours 04/06/21 04/07/21 04/08/21 23:59 23:59 23:59 Intake Total 1850 / 1850 Output Total 6920 / 6920 Balance 1850 / 1850 -6920 / -6920 Lab / Micro Data Result Diagrams: 04/08/21 05:42 04/08/21 05:42 Labs: Laboratory Results - last 24 hr 04/08/21 04/08/21 04/08/21 05:42 05:42 05:42 WBC 11.5 H RBC 3.11 L Hgb 10.7 L Hct 31.6 L MCV 101.6 H MCH 34.4 H MCHC 33.9 RDW Std Deviation 58.9 H RDW Coeff of William 15.6 H Plt Count 209 MPV 9.3 Immature Gran % (Auto) 0.400 Neut % (Auto) 69.3 Lymph % (Auto) 17.6 L [place] % (Auto) 11.5 H Eos % (Auto) 0.7 Baso % (Auto) 0.5 Absolute Neuts (auto) 8.0 H Absolute Lymphs (auto) 2.02 Nucleated RBC % 0 Sodium 133 L Potassium 3.2 L Chloride 105 Carbon Dioxide 20.0 L Anion Gap 8 BUN 12 Creatinine 0.57 L Estim Creat Clear Calc 143.11 Est GFR (MDRD) Af Amer 184 Est GFR (MDRD) Non-Af 152 BUN/Creatinine Ratio 20.9 H Glucose 109 H Calcium 7.5 L Magnesium 1.3 L Micro: Microbiology 04/08/21 13:40 Fluid - Paracentesis (Abd) Gram Stain - Final 04/07/21 01:18 Stool Enteric Bacteriology - Final 04/06/21 01:18 Stool C. difficile GDH Antigen & Toxins - Final Toxigenic C. difficile 04/06/21 01:18 Stool C. difficile DNA Amplification - Final Radiography Diagnostic Testing: Radiology Impression Echocardiogram 04/07/21 00:13 Interpretation Summary Normal LV size. Left ventricular systolic function is normal. The estimated ejection fraction is 60 %. Stage 1 diastolic dysfunction. Contrast injection was performed. Ordering Physician: Clay Choi Referring Physician: [facility] Performed By: Lyric Collins, SANJEEV, RVT Rhythm Strip Rhythm Strip: Sinus Rhythm Rate: 85 Ectopy: None Physical Exam Narrative Physical exam: General: Alert, Oriented x3, Cooperative, appears cachectic, jaundiced HEENT: Atraumatic Oral: Moist Mucosa Neck: Supple Lungs: Clear to auscultation Cardiovascular: HS I+II, regular, no murmurs Abdomen: Bowel Sounds Present, Soft, Non Tender, distended, fluid thrill present Extremities: Bilateral leg edema Assessment & Plan Assessment/Plan (1) C. difficile diarrhea: (2) Syncope: QUALIFIERS: Syncope type: unspecified Qualified Code(s): R55 - Syncope and collapse (3) Diarrhea: QUALIFIERS: Diarrhea type: unspecified type Qualified Code(s): R19.7 - Diarrhea, unspecified (4) Weakness: (5) Adult failure to thrive: (6) Cirrhosis of liver: QUALIFIERS: Hepatic cirrhosis type: alcoholic cirrhosis Ascites presence: with ascites Qualified Code(s): K70.31 - Alcoholic cirrhosis of liver with ascites (7) Cancer of liver: QUALIFIERS: Liver malignancy type: unspecified liver malignancy Qualified Code(s): C22.9 - Malignant neoplasm of liver, not specified as primary or secondary (8) Acute alcoholism: (9) Hypertension: QUALIFIERS: Hypertension type: essential hypertension Qualified Code(s): I10 - Essential (primary) hypertension (10) Debility: PLAN: 1. Syncope related to dehydration secondary to acute C. difficile diarrhea 2. Acute C. difficile diarrhea, improving, continue on vancomycin 3. Hypokalemia/hypomagnesemia related to acute CT diarrhea and chronic alcohol use, replace, recheck in a.m. 4. Liver cirrhosis with ascites, going for therapeutic paracentesis today 5. Debility related to failure to thrive and current diarrhea, PT and OT to evaluate and treat 6. Chronic alcohol use/abuse, continue on thiamine, folic acid and multivitamins Charges/Coding Visit Charges Inpatient E&M: 76886 Subs Hosp L2
--- NOTE | 2021-04-08 16:22 | CASEMGMT ---
CECE SMITH Readmission Review: Pt with hx of cirrhosis of liver, liver CA, with ascites and hepatic encephalopathy, ETOH abuse, anemia, and FTT. This admission with new diagnosis of C-diff. ED visits: 12/05, 12/21, 01/28, 03/19 Inpt/obs visits: 12/07- liver failure; syncope; PASQUALE, debility; 03/27- hypokalemia Pt has received services from: [facility]/Waiver program (SARAH Lorenzana): Life line, 14 meals/week [facility] (ASRAH Luong) Adult Protective Services PCP: Debra Littlejohn [facility]: [place] Pt was discharged with Home Health services from [facility] on 03/23. Pt left AMA on 03/28. Pt lives alone with a dog and has demonstrated increased difficulty in caring for himself over the past several months. Pt with frequent admissions and ED visits as noted above and progressing liver cirrhosis. Palliative screen completed and pt meets criteria for palliative referral. This CECE SMITH discussed with Dr. Red who states pt's condition is declining but pt not realistic regarding prognosis and goals of care. Noted palliative care and hospice services were discussed with pt in November of this year and pt declined both services. Will continue to follow regarding pt's acceptance of prognosis and assistance. Barbara Zarate RN CM
[2021-04-08 16:43] LABS: Auto B Fluid Analyzer BKGD Ct COUNTS W/IN LIMITS (W/IN LIMITS)
[2021-04-08 16:45] LABS: Appearance/Body Fluid CLEAR; Body Fluid Total Cells Counted 0.108 10^3/ul; Color/Body Fluid LT YEL; Source- Body Fluid PERITONEAL FLUID
[2021-04-08 16:47] LABS: Body Fluid Mononuclear WBC # 0.061 10^3/uL; Body Fluid Mononuclear WBC % 87.2 %; Body Fluid Polynuclear WBC # 0.009 10^3/uL; Body Fluid Polynuclear WBC % 12.8 %
[2021-04-08 16:49] LABS: Red Cell Count/Body Fluid 2 /mm3
[2021-04-08 17:04] LABS: Body Fluid QC Type(s) BF2Q; Lymphocytes 9 %; Monocytes 89 %; Neutrophil (Segs) 3 %
[2021-04-08] MEDS: 0.9% Saline Lock 10 ML Syringe IV (17:46)
[2021-04-08] MEDS: Magnesium Sulfate 4gm/100mL 4 GM/100 ML IV.SOLN. IV (17:47)
[2021-04-08] MEDS: Lidocaine 2% (20 ml mdv) 20 ML Vial (17:48)
[2021-04-09] MEDS: Mag Hydrox/Al Hydrox/Simeth 30 ML UDC PO (01:35)
[2021-04-09 03:00] VITALS: PULSE 98
[2021-04-09 03:12] VITALS: BP 107/59; PULSE 98; RESP 18; TEMP 36.9; O2SAT 98
[2021-04-09] MEDS: Menthol/Lanolin/Calamine/Znox 113 GM Tube 1 APPLIC TOPICAL (05:35)
[2021-04-09] MEDS: Vancomycin 125 MG/5 ML Susp PO.SYRINGE PO ×2 (05:37→11:05)
[2021-04-09 07:11] LABS: Absolute Lymphocyte Count 1.86 X10^3/uL (0.83-4.51); Absolute Neutrophil Count 4.5 X10^3/uL (2.0-7.7); Basophil# 0.03 X10^3/uL; Basophil% 0.4 % (0-1); Eosinophil# 0.12 X10^3/uL; Eosinophils% 1.6 % (0-5); Hematocrit 27.7 % (40-54); Hemoglobin 9.3 g/dL (13.0-16.5); Lymphocyte # 1.86 X10^3/ul (0.83-4.51); Lymphocyte % 24.6 % (19-41); Mean Corp Hgb Conc 33.6 g/dL (32-36); Mean Corpuscular Hgb 34.2 pg (27.0-32.0); Mean Corpuscular Volume 101.8 fL (80-94); Mean Platelet Vol. 9.5 fl (6.2-12.0); Monocyte# 1.05 X10^3/uL; Monocyte% 13.9 % (0-10); NRBC Flagged by Analyzer 0 % (0-5); Neutrophil # 4.47 X10^3/uL (2.7-7.7); Platelet Count 147 K/mm3 (150-450); RBC Distribution Width CV 15.3 % (11.6-14.6); Red Blood Count 2.72 M/mm3 (4.6-6.2); White Blood Count 7.6 K/mm3 (4.4-11.0)
[2021-04-09 07:32] VITALS: PULSE 99
[2021-04-09 07:43] VITALS: BP 123/80; PULSE 97; RESP 17; TEMP 36.6; O2SAT 100
[2021-04-09 07:50] LABS: ALB/GLOB Ratio 0.2 RATIO (0.9-2.4); AST(SGOT) 87 U/L (15-37); Alanine Aminotransfer ALT/SGPT 39 U/L (16-61); Albumin, Serum 1.1 g/dL (3.2-5.0); Alkaline Phosphatase 144 U/L (45-117); Anion Gap 7 (5-15); BUN 8 mg/dL (7-18); BUN/Creat Ratio 18.6 RATIO (10-20); Calcium,Total 7.3 mg/dL (8.5-10.1); Chloride 106 mmol/L (98-107); Creatinine, Serum 0.43 mg/dL (0.70-1.30); EST Glomerular Filtration Rate 212 mL/min (>60); Est Glom Filt Rate - Afr Amer 257 mL/min (>60); Estimated Creatinine Clearance 189.71 ml/min; Globulin 4.4 g/dL (2.2-4.2); Glucose 107 mg/dL (74-106); Magnesium 1.7 mg/dL (1.6-2.6); Potassium 3.7 mmol/L (3.5-5.1); Protein, Total 5.5 g/dL (6.4-8.2); Sodium Level 133 mmol/L (136-145)
[2021-04-09] MEDS: rifAXIMin 550 MG Tablet PO (09:35)
[2021-04-09] MEDS: Thiamine Hydrochloride 100 MG Tablet PO (09:35)
[2021-04-09] MEDS: Folic Acid 1 MG Tablet PO (09:35)
[2021-04-09] MEDS: Multivitamins,Therapeutic Tablet 1 TABLET PO (09:36)
--- NOTE | 2021-04-09 10:17 | DCINST_ITS ---
Discharge Instructions Diet Discharge Diet: Low fat / Low cholesterol, 6 Cup Fluid Restriction and 2000 mg Sodium Diet Activity Discharge Activity: Return to Normal Activity Follow Up Care Test Results: Test results from this visit will be discussed in further detail at your follow-up appointment, if applicable. Discharge Plan Admission Admit Date/Time: 04/07/21 00:41 Primary Reason for Your Visit: syncope, diarrhea Attending Provider: Kamilah Avila Primary Care Provider: [facility] Debra Renner Instructions Additional Instructions / Restrictions: You are strongly advised to avoid drinking alcohol. Follow-up with your primary care doctor within a week for repeat blood work. Follow-up also with a manager specialty. You will need weekly paracentesis. Take note of changes to your medications Discharge Orders/Prescriptions Prescriptions: New Firvanq 25 mg/mL Recon Soln 125 mg PO Q6 8 Days Qty: 160 RF: 0 spironolactone 25 mg tablet 12.5 mg PO DAILY Qty: 15 RF: 0 Xifaxan 550 mg Tablet 550 mg PO BID 30 Days Qty: 60 RF: 0 Continued atorvastatin 40 MG tablet 40 mg PO QHS RF: 0 citalopram 20 MG tablet 20 mg PO DAILY RF: 0 cetirizine 10 MG tablet 10 mg PO DAILY PRN PRN (Reason: Allergies) Qty: 0 RF: 0 quetiapine [Seroquel] 300 mg Tablet 300 mg PO QHS RF: 0 thiamine HCl (vitamin B1) [Vitamin B-1] 100 mg Tablet 100 mg PO BIDCM RF: 0 mirtazapine 45 mg tablet 45 mg PO QHS RF: 0 folic acid 1 mg Tablet 1 mg PO DAILY RF: 0 magnesium oxide 400 mg magnesium Tablet 400 mg PO DAILY RF: 0 multivitamin 1 EACH tablet 1 tab PO DAILY RF: 0 furosemide [Lasix] 40 mg tablet 40 mg PO DAILY RF: 0 cholecalciferol (vitamin D3) 1,250 mcg (50,000 unit) Capsule 1,250 mcg PO MO RF: 0 levetiracetam 500 mg tablet 500 mg PO BID RF: 0 lactulose 10 gram/15 mL (15 mL) solution 10 g PO DAILY RF: 0 Discontinued metoprolol succinate 50 MG tablet extended release 24 hr 50 mg PO DAILY Qty: 0 RF: 0 spironolactone [Aldactone] 25 mg tablet 25 mg PO DAILY RF: 0 cephalexin [cephalexin] 500 MG capsule 500 mg PO Q8 RF: 0 Referrals / Follow Up: [facility] [Primary Care Provider] - In 1 Week Disposition Disposition (needs filled in before D/C Order can be placed): Home, Self Care
--- NOTE | 2021-04-09 10:20 | CASEMGMT ---
Per Dr. Avila, pt needs to be set up by PCP or GI for weekly paracentesis. Pt's PCP is at [facility]. Call to [facility] radiology nurse, and she faxed a paracentesis order to this RN CM and she states that [facility] has signed for this for pt's in the past. Call to Ana, nurse at [facility], and she is updated on all. Per Ana, she feels that her physician will most likely sign the order for paracentesis. This RN CM faxed the paracentesis standing order and radiology fax cover sheet to [facility] [place] at this time. [facility] fax: [phone]. CM to follow for any further discharge planning/needs. John ZHAO CM
[2021-04-09 10:36] VITALS: PULSE 103
--- NOTE | 2021-04-09 11:36 | CASEMGMT ---
Pt had [facility] set up when discharged 03/22/21 for SN, PT/OT, SW, aide but was readmitted prior to start of care. Pt states he would like [facility] set up again at this time. Order placed for same and call to Aura at [facility] to notify of referral. Pt updated on paracentesis as well and states he would this RN CM to call his CM Diana to update her on all. Call to Diana and updated on all, voices understanding. Diana states she can come pick pt up now if he is ready for discharge. Criss RN and pt aware, voice understanding and per Criss, pt can be discharged. Diana aware to head this way to pick pt up. This RN CM awaiting call back from Aura at [facility] regarding acceptance. Pt states no preference for another [facility], if necessary. CM to follow. John ZHAO CM
[2021-04-09 11:44] LABS: Pathologist Comment/Body Fluid Reviewed
--- NOTE | 2021-04-09 11:54 | PCM.DC.SUM ---
Providers Date of Admission: 04/07/21 Date of Discharge: 04/09/21 Primary Care Physician: [place] Reason For Visit: FAILURE TO THRIVE; DIARRHEA Diagnosis Discharge Diagnosis (1) C. difficile diarrhea: Status: Acute Code(s): A04.72 - Enterocolitis due to Clostridium difficile, not specified as recurrent (2) Syncope: Status: Resolved Code(s): R55 - Syncope and collapse Qualifiers: Syncope type: unspecified Qualified Code(s): R55 - Syncope and collapse (3) Diarrhea: Status: Acute Code(s): R19.7 - Diarrhea, unspecified Qualifiers: Diarrhea type: unspecified type Qualified Code(s): R19.7 - Diarrhea, unspecified (4) Weakness: Status: Acute Code(s): R53.1 - Weakness (5) Adult failure to thrive: Status: Acute Code(s): R62.7 - Adult failure to thrive (6) Cirrhosis of liver: Status: Chronic Code(s): K74.60 - Unspecified cirrhosis of liver Qualifiers: Ascites presence: with ascites Hepatic cirrhosis type: alcoholic cirrhosis Qualified Code(s): K70.31 - Alcoholic cirrhosis of liver with ascites (7) Cancer of liver: Status: Chronic Code(s): C22.9 - Malignant neoplasm of liver, not specified as primary or secondary Qualifiers: Liver malignancy type: unspecified liver malignancy Qualified Code(s): C22.9 - Malignant neoplasm of liver, not specified as primary or secondary (8) Acute alcoholism: Status: Chronic Code(s): F10.20 - Alcohol dependence, uncomplicated (9) Hypertension: Status: Chronic Code(s): I10 - Essential (primary) hypertension Qualifiers: Hypertension type: essential hypertension Qualified Code(s): I10 - Essential (primary) hypertension (10) Debility: Status: Chronic Code(s): R53.81 - Other malaise Medications at Discharge Home Medications atorvastatin 40 mg PO QHS 03/26/20 citalopram 20 mg PO DAILY 12/07/20 cetirizine 10 mg PO DAILY PRN PRN #0 12/14/20 folic acid 1 mg PO DAILY 03/22/21 mirtazapine 45 mg PO QHS 03/22/21 quetiapine [Seroquel] 300 mg PO QHS 03/22/21 thiamine HCl (vitamin B1) [Vitamin B-1] 100 mg PO BIDCM 03/22/21 cholecalciferol (vitamin D3) 1,250 mcg PO MO 03/25/21 furosemide [Lasix] 40 mg PO DAILY 03/25/21 levetiracetam 500 mg PO BID 03/25/21 magnesium oxide 400 mg PO DAILY 03/25/21 multivitamin 1 tab PO DAILY 03/25/21 lactulose 10 g PO DAILY 04/09/21 rifaximin [Xifaxan] 550 mg PO BID 30 Days #60 tab 04/09/21 spironolactone 12.5 mg PO DAILY #15 tab 04/09/21 vancomycin [Firvanq] 125 mg PO Q6 8 Days #160 ml 04/09/21 Hospital Course Operations None Procedures Paracentesis (on 04/07/21) Summary of Care Provided Minutes Spent on Discharge: 45 Hospital Course: 60-year-old with past medical history of chronic alcohol use disorder/cirrhosis of the liver/CA liver who comes in after syncopal event. He admits to having diarrhea, nausea and analgesia. Patient's work-up including C. difficile was positive. He was started on oral vancomycin. He was also started on rifaximin. Paracentesis were ordered for patient. Patient's general condition improved, his diarrhea was resolved, he underwent paracentesis on 04/07/21 with 6.9 L of fluid removed. He had electrolyte imbalances that were replaced. Outpatient weekly paracentesis was arranged. Patient was discharged in a stable condition. He was advised to quit drinking alcohol. He needs to follow-up with a silver solution mixer for cirrhosis/? CA of the liver. Patient needs repeat blood work within a week. Physical Exam Narrative Physical exam: General: Alert, Oriented x3, Cooperative, appears cachectic, jaundiced HEENT: Atraumatic Oral: Moist Mucosa Neck: Supple Lungs: Clear to auscultation Cardiovascular: HS I+II, regular, no murmurs Abdomen: Bowel Sounds Present, Soft, Non Tender, distended, fluid thrill present Extremities: Bilateral leg edema Weight / BMI Weight Weight: 83.7 kg Body Mass Index (BMI) 25.7 ABG / Lab / Microbiology Data Result Diagrams: 04/09/21 06:15 04/09/21 06:15 Laboratory: Laboratory Results - last 24 hr 04/08/21 04/08/21 04/09/21 05:42 13:40 06:15 WBC 7.6 RBC 2.72 L Hgb 9.3 L Hct 27.7 L MCV 101.8 H MCH 34.2 H MCHC 33.6 RDW Std Deviation 58.0 H RDW Coeff of William 15.3 H Plt Count 147 L MPV 9.5 Immature Gran % (Auto) 0.500 Neut % (Auto) 59.0 Lymph % (Auto) 24.6 [place] % (Auto) 13.9 H Eos % (Auto) 1.6 Baso % (Auto) 0.4 Absolute Neuts (auto) 4.5 Absolute Lymphs (auto) 1.86 Nucleated RBC % 0 Sodium Potassium Chloride Carbon Dioxide Anion Gap BUN Creatinine Estim Creat Clear Calc Est GFR (MDRD) Af Amer Est GFR (MDRD) Non-Af BUN/Creatinine Ratio Glucose Calcium Magnesium 1.3 L Total Bilirubin AST ALT Alkaline Phosphatase Total Protein Albumin Globulin Albumin/Globulin Ratio Fluid Source PERITONEAL FLUID Fluid Color LT YEL Fluid Appearance CLEAR Fluid WBC 0.070 Fluid RBC 2 Fluid Tot Cell Count 0.108 Fld Polynuclear WBCs # 0.009 Fld Polynuclear WBCs % 12.8 Fluid Mononuclear WBCs 0.061 Fld Mononuclear WBCs % 87.2 Fluid Neutrophils 3 Fluid Lymphocytes 9 Fluid Monocytes 89 Fl Pathologist Comment Reviewed Fluid Comment 2 SEE COMMENT 04/09/21 06:15 WBC RBC Hgb Hct MCV MCH MCHC RDW Std Deviation RDW Coeff of William Plt Count MPV Immature Gran % (Auto) Neut % (Auto) Lymph % (Auto) [place] % (Auto) Eos % (Auto) Baso % (Auto) Absolute Neuts (auto) Absolute Lymphs (auto) Nucleated RBC % Sodium 133 L Potassium 3.7 Chloride 106 Carbon Dioxide 20.0 L Anion Gap 7 BUN 8 Creatinine 0.43 L Estim Creat Clear Calc 189.71 Est GFR (MDRD) Af Amer 257 Est GFR (MDRD) Non-Af 212 BUN/Creatinine Ratio 18.6 Glucose 107 H Calcium 7.3 L Magnesium 1.7 Total Bilirubin 2.70 H AST 87 H ALT 39 Alkaline Phosphatase 144 H Total Protein 5.5 L Albumin 1.1 L Globulin 4.4 H Albumin/Globulin Ratio 0.2 L Fluid Source Fluid Color Fluid Appearance Fluid WBC Fluid RBC Fluid Tot Cell Count Fld Polynuclear WBCs # Fld Polynuclear WBCs % Fluid Mononuclear WBCs Fld Mononuclear WBCs % Fluid Neutrophils Fluid Lymphocytes Fluid Monocytes Fl Pathologist Comment Fluid Comment 2 Microbiology: Microbiology 04/08/21 13:40 Gram Stain - Final Fluid - Paracentesis (Abd) Body Fluid Culture - Preliminary No growth-Final to follow Microbiology 04/08/21 13:40 Fluid - Paracentesis (Abd) Gram Stain - Final 04/08/21 13:40 Fluid - Paracentesis (Abd) Body Fluid Culture - Preliminary No growth-Final to follow 04/07/21 01:18 Stool Enteric Bacteriology - Final 04/06/21 01:18 Stool C. difficile GDH Antigen & Toxins - Final Toxigenic C. difficile 04/06/21 01:18 Stool C. difficile DNA Amplification - Final Radiography Diagnostic Testing: Radiology Impression Echocardiogram 04/07/21 00:13 Interpretation Summary Normal LV size. Left ventricular systolic function is normal. The estimated ejection fraction is 60 %. Stage 1 diastolic dysfunction. Contrast injection was performed. Ordering Physician: Clay Choi Referring Physician: DEBRA TERRAZAS Performed By: Lyric Collins, SANJEEV, RVT Paracentesis Ultrasound 04/07/21 00:41 IMPRESSION: Uneventful thoracentesis. Electronically Signed: Mickchandrika Raad, at 16:25 EDT Tel , Service support , D/C Instructions Discharge Diet: Low fat / Low cholesterol, 6 Cup Fluid Restriction and 2000 mg Sodium Diet Meaningful Use Info Meaningful Use Diagnoses (Choose all that apply): None applicable Discharge Plan Admission Admit Date/Time: 04/07/21 00:41 Primary Reason for Your Visit: syncope, diarrhea Attending Provider: Kamilah Avila Primary Care Provider: [facility] Debra Renner Instructions Additional Instructions / Restrictions: Patient Problems: Altered Health Status related to Hospitalization Patient Goals: *Optimal Level of Health *Keep Appointments *Medication Compliance *Remain SafeYou are strongly advised to avoid drinking alcohol. Follow-up with your primary care doctor within a week for repeat blood work. Follow-up also with a silver solution mixer. You will need weekly paracentesis. Take note of changes to your medications Discharge Orders/Prescriptions Prescriptions: New Firvanq 25 mg/mL Recon Soln 125 mg PO Q6 8 Days Qty: 160 RF: 0 spironolactone 25 mg tablet 12.5 mg PO DAILY Qty: 15 RF: 0 Xifaxan 550 mg Tablet 550 mg PO BID 30 Days Qty: 60 RF: 0 Continued atorvastatin 40 MG tablet 40 mg PO QHS RF: 0 citalopram 20 MG tablet 20 mg PO DAILY RF: 0 cetirizine 10 MG tablet 10 mg PO DAILY PRN PRN (Reason: Allergies) Qty: 0 RF: 0 quetiapine [Seroquel] 300 mg Tablet 300 mg PO QHS RF: 0 thiamine HCl (vitamin B1) [Vitamin B-1] 100 mg Tablet 100 mg PO BIDCM RF: 0 mirtazapine 45 mg tablet 45 mg PO QHS RF: 0 folic acid 1 mg Tablet 1 mg PO DAILY RF: 0 magnesium oxide 400 mg magnesium Tablet 400 mg PO DAILY RF: 0 multivitamin 1 EACH tablet 1 tab PO DAILY RF: 0 furosemide [Lasix] 40 mg tablet 40 mg PO DAILY RF: 0 cholecalciferol (vitamin D3) 1,250 mcg (50,000 unit) Capsule 1,250 mcg PO MO RF: 0 levetiracetam 500 mg tablet 500 mg PO BID RF: 0 lactulose 10 gram/15 mL (15 mL) solution 10 g PO DAILY RF: 0 Discontinued metoprolol succinate 50 MG tablet extended release 24 hr 50 mg PO DAILY Qty: 0 RF: 0 spironolactone [Aldactone] 25 mg tablet 25 mg PO DAILY RF: 0 cephalexin [cephalexin] 500 MG capsule 500 mg PO Q8 RF: 0 Referrals / Follow Up: Debra Sosa [Primary Care Provider] - 04/12/21 2:10 pm Disposition Disposition (needs filled in before D/C Order can be placed): Home, Self Care Charges/Coding Visit Charges Inpatient E&M: 08387 Disch Hosp
[2021-04-09 12:25] VITALS: BP 133/82; PULSE 110; RESP 18; TEMP 36.7; O2SAT 100
--- NOTE | 2021-04-09 12:48 | CASEMGMT ---
Call back from Aura at [facility] and she states they are able to accept pt. John ZHAO CM
--- NOTE | 2021-04-10 14:29 | CASEMGMT ---
CECE SMITH Discharge Follow-up Phone Call: CANDICE: 14 Strata: 4 Call Date: 04/10/21 Discharge Date: 04/09/21 Time of Call: 1430 Duration: 3 min Admitting Diagnosis: Failure to thrive, diarrhea CECE SMITH completed follow-up phone call after recent hospitalization. Patient states he is doing ok and not doing much of anything. Patient states SARAH Ortiz was to bulk picker his prescriptions and is aware of follow-up appt with PCP. Patient had no questions regarding discharge instructions. Patient has appt scheduled with PCP on 04/12. Patient was setup with [facility]. Patient had no further questions or concerns at this time.
== END 2021-04-09 12:35 | disposition home health service (06) | DRG 372 ==
LOC: ED 23:43 → PCU 04-07 00:25
PROVIDERS: Student in an Organized Health Care Education/Training Program; Admitting Provider Hospitalist; Emergency Provider Emergency Medicine; Visit Provider Internal Medicine
DX: A04.72 Enterocolitis due to Clostridium difficile, not specified as recurrent (principal); C22.9 Malignant neoplasm of liver, not specified as primary or secondary; J98.11 Atelectasis; R55 Syncope and collapse; K70.31 Alcoholic cirrhosis of liver with ascites; K72.90 Hepatic failure, unspecified without coma; F10.20 Alcohol dependence, uncomplicated; I10 Essential (primary) hypertension; R29.6 Repeated falls; F41.9 Anxiety disorder, unspecified; F31.9 Bipolar disorder, unspecified; R56.9 Unspecified convulsions; F17.210 Nicotine dependence, cigarettes, uncomplicated; E87.6 Hypokalemia; R62.7 Adult failure to thrive; E86.0 Dehydration; E87.5 Hyperkalemia; K75.9 Inflammatory liver disease, unspecified; Z79.899 Other long term (current) drug therapy
CPT/HCPCS: 36415; 49083; 70450; 71045; 80048; 80053; 81001; 82077; 82140; 83605; 83690; 83735; 85025; 85610; 87070; 87075; 87177; 87205; 87209; 87493; 87506; 88108; 88305; 88313; 88341; 88342; 89050; 93005; 93306; 97110; 97162; 97165; 97530; 97535; 97802; 99251; 99285; J7030; P9612; Q9957; A4216; C8929; G0463; J2405; J3490

== ENCOUNTER 2021-04-11 10:04 | Emergency (ER) | payer MEDICARE, MEDICAID, SELFPAY ==
[2021-04-07 00:41] VITALS: BMI 25.7
[2021-04-11 10:04] VITALS: BP 144/92; PULSE 116; RESP 19; TEMP 36.2; O2SAT 99; BMI 24.3
--- NOTE | 2021-04-11 10:20 | EX.ED.DYSGE1 ---
HPI History of Present Illness Chief Complaint: Abd Pain Informant: patient Narrative Narrative: Patient is a 60-year-old male with a past medical history of liver cancer, liver cirrhosis, alcohol abuse who presents to the emergency department for diffuse abdominal pain. He states this started last night. He currently rates his pain as a 9 out of 10. He tried taking mygr-nfl-rpdneph medicine yesterday which did not give him any relief. No known aggravating or relieving factors. He has had this pain before but feels worse. Patient did have a paracentesis performed his last hospital stay which she was discharged from 2 days ago. Patient states he has been drinking alcohol since then. He is currently being treated for C. difficile infection and started to have diarrhea again. He has taken his oral Vanco only this morning. Since being discharged. He denies nausea/vomiting. Denies any fevers or chills. No chest pain or shortness of breath. PFSH PFSH Medical History Alcohol abuse Anxiety Ascites Bipolar disorder Cirrhosis Depression GI bleed Hepatitis Seizure Smoker Home Medications atorvastatin 40 mg PO QHS 03/26/20 [History Last Taken 03/26/21] citalopram 20 mg PO DAILY 12/07/20 [History Last Taken 03/27/21] cetirizine 10 mg PO DAILY PRN PRN #0 12/14/20 [Rx Last Taken 03/27/21] folic acid 1 mg PO DAILY 03/22/21 [History Last Taken 03/27/21] mirtazapine 45 mg PO QHS 03/22/21 [History Last Taken 03/26/21] quetiapine [Seroquel] 300 mg PO QHS 03/22/21 [History Last Taken 03/26/21] thiamine HCl (vitamin B1) [Vitamin B-1] 100 mg PO BIDCM 03/22/21 [History Last Taken 03/27/21] cholecalciferol (vitamin D3) 1,250 mcg PO MO 03/25/21 [History Last Taken 03/25/21] furosemide [Lasix] 40 mg PO DAILY 03/25/21 [History Last Taken 03/27/21] levetiracetam 500 mg PO BID 03/25/21 [History Last Taken 03/27/21] magnesium oxide 400 mg PO DAILY 03/25/21 [History Last Taken 03/27/21] multivitamin 1 tab PO DAILY 03/25/21 [History Last Taken 03/27/21] lactulose 10 g PO DAILY 04/09/21 [History Last Taken Unknown] rifaximin [Xifaxan] 550 mg PO BID 30 Days #60 tab 04/09/21 [Rx Last Taken Unknown] spironolactone 12.5 mg PO DAILY #15 tab 04/09/21 [Rx Last Taken Unknown] vancomycin [Firvanq] 125 mg PO Q6 8 Days #160 ml 04/09/21 [Rx Last Taken Unknown] naproxen [Naprosyn] 500 mg PO BID PRN #20 tab 04/11/21 [Rx Last Taken Unknown] Allergy/AdvReac Type Severity Reaction Status Date / Time lisinopril Allergy Angioedema Verified 04/11/21 10:06 peanut Allergy Hives Verified 04/11/21 10:06 Family History Father Myocardial infarction Mother Stomach cancer Social History household members: none housing: apartment Smoking Status: Current every day smoker tobacco type: cigarettes alcohol intake: current alcohol intake frequency: 0-2 drinks per day substance use type: marijuana ROS ROS ED Constitutional Constitutional ED: Denies chills or fever(s) Eyes Eyes: Denies change in vision ENT ENT ED: Denies epistaxis or rhinorrhea Cardiovascular Cardiovascular: Denies chest pain or palpitations Respiratory/Chest Respiratory/Chest: Denies cough, dyspnea or dyspnea on exertion Gastrointestinal Gastrointestinal: Reports abdominal pain and diarrhea; Denies melena, nausea or vomiting Genitourinary Genitourinary ED: Denies dysuria, hematuria or urinary frequency Musculoskeletal Musculoskeletal: Denies back pain or neck pain Integumentary Denies rash Neurologic Neurologic: Denies dizziness, headache(s) or weakness EXAM Physical Exam Const Vital Signs: 04/11/21 10:04 04/11/21 12:27 Temperature 97.2 F L Temperature Source Temporal Pulse Rate 116 H 99 Respiratory Rate 19 H 17 Blood Pressure 144/92 H 109/85 H Blood Pressure Mean 109 Pulse Ox 99 99 Oxygen Delivery Method Room Air Positive well nourished and well developed General Appearance ED: well developed and NAD HEENT Reports normocephalic, head/scalp atraumatic and moist mucous membranes Eyes PERRL and EOMs intact bilaterally Neck supple Chest Wall inspection of chest normal Resp normal respiratory effort and clear to auscultation bilaterally Auscultation: Negative for rales, rhonchi or wheezes Cardio regular rate, regular rhythm and no murmurs GI GI Narrative: Abdomen is distended with ascites. Has moderate diffuse tenderness throughout. No rebound or guarding. Back/Spine no CVA tenderness Extremity normal to inspection General Extremety ED: Negative for edema or tenderness General Extremity: Negative for edema Neuro oriented x3, CN's II-XII intact bilaterally and no sensory deficits noted Sensorium / Orientation: alert Motor Exam: strength 5/5 throughout Psych mental status grossly normal Skin no rashes or lesions noted MDM MDM MDM Narrative Medical decision making narrative: Patient presents the ED for abdominal pain. He does have liver cirrhosis with significant ascites on exam. He was supposed to follow-up with gastroenterology to have repeat scheduled paracenteses but has not been able to yet. He just discharged the hospital 2 days ago. On arrival to the emergency department he is mildly tachycardic but otherwise normal vital signs. He does not appear in any acute distress. Patient's lab work did not reveal a significantly high white blood cell count. He is mildly anemic. His sodium is mildly low. His liver enzymes are similar to previous work-ups. Throughout course of ED stay his abdominal pain has resolved. His mattress spring encaser did call and states that he has a appointment on the to have a paracentesis. Recommend symptomatic treatment at home until then. Return precautions are reviewed including increasing pain, developing fever/chills. This time very low concern for SBP or other acute surgical pathology. This time patient discharged home in stable condition. He understands and is agreeable this plan. All questions were answered. Lab Data Labs: Laboratory Results - last 24 hr 04/11/21 04/11/21 04/11/21 11:00 11:00 11:00 WBC 10.2 RBC 3.05 L Hgb 10.4 L Hct 31.8 L MCV 104.3 H MCH 34.1 H MCHC 32.7 RDW Std Deviation 58.3 H RDW Coeff of William 15.2 H Plt Count 200 MPV 9.3 Immature Gran % (Auto) 0.600 Neut % (Auto) 70.0 Lymph % (Auto) 15.0 L [place] % (Auto) 13.3 H Eos % (Auto) 0.8 Baso % (Auto) 0.3 Absolute Neuts (auto) 7.2 Absolute Lymphs (auto) 1.53 Nucleated RBC % 0 Sodium 131 L Potassium 4.0 Chloride 103 Carbon Dioxide 21.0 Anion Gap 7 BUN 8 Creatinine 0.53 L Estim Creat Clear Calc 153.92 Est GFR (MDRD) Af Amer 203 Est GFR (MDRD) Non-Af 168 BUN/Creatinine Ratio 15.1 Glucose 111 H Calcium 7.9 L Total Bilirubin 3.50 H AST 114 H ALT 48 Alkaline Phosphatase 180 H Total Protein 6.7 Albumin 1.5 L Globulin 5.2 H Albumin/Globulin Ratio 0.3 L Lipase 177 Ethyl Alcohol 7.0 Discharge Plan Triage Chief Complaint: Abd Pain ED Provider: Clay Martinez Dx/Rx/DC Orders Clinical Impression: Abdominal pain, Abdominal ascites Instructions: Abdominal Pain, ED Ascites Prescriptions: New naproxen [Naprosyn] 500 mg tablet 500 mg PO BID PRN (Reason: pain) Qty: 20 RF: 0 No Action atorvastatin 40 MG tablet 40 mg PO QHS RF: 0 citalopram 20 MG tablet 20 mg PO DAILY RF: 0 cetirizine 10 MG tablet 10 mg PO DAILY PRN PRN (Reason: Allergies) Qty: 0 RF: 0 quetiapine [Seroquel] 300 mg Tablet 300 mg PO QHS RF: 0 thiamine HCl (vitamin B1) [Vitamin B-1] 100 mg Tablet 100 mg PO BIDCM RF: 0 mirtazapine 45 mg tablet 45 mg PO QHS RF: 0 folic acid 1 mg Tablet 1 mg PO DAILY RF: 0 magnesium oxide 400 mg magnesium Tablet 400 mg PO DAILY RF: 0 multivitamin 1 EACH tablet 1 tab PO DAILY RF: 0 furosemide [Lasix] 40 mg tablet 40 mg PO DAILY RF: 0 cholecalciferol (vitamin D3) 1,250 mcg (50,000 unit) Capsule 1,250 mcg PO MO RF: 0 levetiracetam 500 mg tablet 500 mg PO BID RF: 0 lactulose 10 gram/15 mL (15 mL) solution 10 g PO DAILY RF: 0 Firvanq 25 mg/mL Recon Soln 125 mg PO Q6 8 Days Qty: 160 RF: 0 spironolactone 25 mg tablet 12.5 mg PO DAILY Qty: 15 RF: 0 Xifaxan 550 mg Tablet 550 mg PO BID 30 Days Qty: 60 RF: 0 Primary Care Provider: [facility] Debra Renner Referrals: [facility] Debra Renner [Primary Care Provider] - 3-5 Days Disposition Disposition: Home, Self Care Discharge Date/Time: 04/11/21 12:28
[2021-04-11] MEDS: Morphine 4 MG/ML Syringe IV (10:53)
[2021-04-11] MEDS: Ondansetron 4 MG/2 ML Vial IV (10:53)
[2021-04-11 11:12] LABS: Absolute Lymphocyte Count 1.53 X10^3/uL (0.83-4.51); Absolute Neutrophil Count 7.2 X10^3/uL (2.0-7.7); Basophil# 0.03 X10^3/uL; Basophil% 0.3 % (0-1); Eosinophil# 0.08 X10^3/uL; Eosinophils% 0.8 % (0-5); Hematocrit 31.8 % (40-54); Hemoglobin 10.4 g/dL (13.0-16.5); Lymphocyte # 1.53 X10^3/ul (0.83-4.51); Mean Corp Hgb Conc 32.7 g/dL (32-36); Mean Corpuscular Hgb 34.1 pg (27.0-32.0); Mean Corpuscular Volume 104.3 fL (80-94); Mean Platelet Vol. 9.3 fl (6.2-12.0); Monocyte# 1.36 X10^3/uL; Monocyte% 13.3 % (0-10); NRBC Flagged by Analyzer 0 % (0-5); Neutrophil # 7.15 X10^3/uL (2.7-7.7); Platelet Count 200 K/mm3 (150-450); RBC Distribution Width CV 15.2 % (11.6-14.6); RBC Distribution Width SD 58.3 fl (35.1-43.9); Red Blood Count 3.05 M/mm3 (4.6-6.2); White Blood Count 10.2 K/mm3 (4.4-11.0)
[2021-04-11 11:26] LABS: ALB/GLOB Ratio 0.3 RATIO (0.9-2.4); AST(SGOT) 114 U/L (15-37); Alanine Aminotransfer ALT/SGPT 48 U/L (16-61); Albumin, Serum 1.5 g/dL (3.2-5.0); Alkaline Phosphatase 180 U/L (45-117); Anion Gap 7 (5-15); BUN 8 mg/dL (7-18); BUN/Creat Ratio 15.1 RATIO (10-20); Calcium,Total 7.9 mg/dL (8.5-10.1); Chloride 103 mmol/L (98-107); Creatinine, Serum 0.53 mg/dL (0.70-1.30); EST Glomerular Filtration Rate 168 mL/min (>60); Est Glom Filt Rate - Afr Amer 203 mL/min (>60); Estimated Creatinine Clearance 153.92 ml/min; Globulin 5.2 g/dL (2.2-4.2); Glucose 111 mg/dL (74-106); Lipase 177 U/L (73-393); Protein, Total 6.7 g/dL (6.4-8.2); Sodium Level 131 mmol/L (136-145)
[2021-04-11 12:27] VITALS: BP 109/85; PULSE 99; RESP 17; O2SAT 99
== END 2021-04-11 12:28 | disposition home or self-care (01) ==
PROVIDERS: Emergency Provider Emergency Medicine
DX: R18.8 Other ascites (principal); K74.60 Unspecified cirrhosis of liver; F41.9 Anxiety disorder, unspecified; F31.9 Bipolar disorder, unspecified; F17.210 Nicotine dependence, cigarettes, uncomplicated; Z79.899 Other long term (current) drug therapy
CPT/HCPCS: 80053; 82077; 83690; 85025; 96374; 96375; 99283; A4216; J2405

== ENCOUNTER → 2021-04-16 12:32 | Outpatient (CLI) | payer MEDICARE, MEDICAID, SELFPAY ==
[2021-04-07 00:41] VITALS: BMI 25.7
[2021-04-11 10:04] VITALS: BMI 24.3
--- NOTE | 2021-04-16 12:36 | US_ITS ---
PROCEDURE: Ultrasound guided paracentesis. DATE OF EXAMINATION: 04/16/2021. INDICATION: Male, 60 years old. Ascites. PHYSICIAN: Emmanuel Craig M.D. TECHNIQUE: The risks, benefits, and alternatives to the procedure were explained to the patient. The specific risks of bleeding, infection, and damage to bowel were detailed and accepted. Witnessed informed consent was obtained. The abdomen was ultrasonographically surveyed. An appropriate pocket of fluid was identified at the right lower quadrant. The skin were cleaned and prepped in the usual sterile fashion. Using ultrasound guidance, the peritoneal cavity was accessed with a 5-Togolese paracentesis needle/catheter system. The trocar was removed. A total of 4100 ml of clovis-colored fluid were removed from the peritoneal cavity. The catheter was removed and a sterile dressing was applied. The procedure was well tolerated. US/Paracentesis with US IMPRESSION: Ultrasound guided paracentesis. Electronically Signed: Emmanuel Craig MD at 13:56 EDT , Service support ,
[2021-04-16 13:02] VITALS: BP 109/65; BP 110/68; BP 99/73; PULSE 74; PULSE 80; PULSE 82; RESP 16; O2SAT 100; O2SAT 97; O2SAT 99
[2021-04-16 14:57] LABS: Absolute Lymphocyte Count 2.02 X10^3/uL (0.83-4.51); Absolute Neutrophil Count 4.9 X10^3/uL (2.0-7.7); Basophil# 0.05 X10^3/uL; Basophil% 0.6 % (0-1); Eosinophil# 0.14 X10^3/uL; Eosinophils% 1.7 % (0-5); Hematocrit 32.1 % (40-54); Hemoglobin 10.4 g/dL (13.0-16.5); Lymphocyte # 2.02 X10^3/ul (0.83-4.51); Lymphocyte % 25.1 % (19-41); Mean Corp Hgb Conc 32.4 g/dL (32-36); Mean Corpuscular Hgb 33.7 pg (27.0-32.0); Mean Corpuscular Volume 103.9 fL (80-94); Mean Platelet Vol. 9.7 fl (6.2-12.0); Monocyte# 0.89 X10^3/uL; Monocyte% 11.1 % (0-10); NRBC Flagged by Analyzer 0 % (0-5); Neutrophil # 4.89 X10^3/uL (2.7-7.7); Neutrophil % 60.9 % (47-70); Platelet Count 216 K/mm3 (150-450); RBC Distribution Width CV 15.1 % (11.6-14.6); RBC Distribution Width SD 57.7 fl (35.1-43.9); Red Blood Count 3.09 M/mm3 (4.6-6.2)
[2021-04-16 15:55] LABS: ALB/GLOB Ratio 0.3 RATIO (0.9-2.4); AST(SGOT) 83 U/L (15-37); Alanine Aminotransfer ALT/SGPT 36 U/L (16-61); Albumin, Serum 1.4 g/dL (3.2-5.0); Alkaline Phosphatase 192 U/L (45-117); Anion Gap 5 (5-15); BUN 6 mg/dL (7-18); BUN/Creat Ratio 11.1 RATIO (10-20); Calcium,Total 7.8 mg/dL (8.5-10.1); Chloride 107 mmol/L (98-107); Creatinine, Serum 0.54 mg/dL (0.70-1.30); EST Glomerular Filtration Rate 164 mL/min (>60); Est Glom Filt Rate - Afr Amer 198 mL/min (>60); Globulin 4.8 g/dL (2.2-4.2); Glucose 92 mg/dL (74-106); Potassium 4.3 mmol/L (3.5-5.1); Protein, Total 6.2 g/dL (6.4-8.2); Sodium Level 133 mmol/L (136-145)
== END ==
PROVIDERS: Referring Provider Nurse Practitioner Adult Health; Visit Provider Nurse Practitioner Adult Health
DX: K70.31 Alcoholic cirrhosis of liver with ascites (principal)
CPT/HCPCS: 36415; 49083; 80053; 85025

== ENCOUNTER → 2021-04-23 13:03 | Outpatient (CLI) | payer MEDICARE, MEDICAID, SELFPAY ==
[2021-04-07 00:41] VITALS: BMI 25.7
[2021-04-11 10:04] VITALS: BMI 24.3
--- NOTE | 2021-04-23 13:05 | US_ITS ---
PROCEDURE: Ultrasound guided paracentesis. DATE OF EXAMINATION: 04/23/2021.. INDICATION: Male, 60 years old. Ascites. PHYSICIAN: Emmanuel Craig M.D. TECHNIQUE: The risks, benefits, and alternatives to the procedure were explained to the patient. The specific risks of bleeding, infection, and damage to bowel were detailed and accepted. Witnessed informed consent was obtained. The abdomen was ultrasonographically surveyed. An appropriate pocket of fluid was identified at the right lower quadrant. The skin were cleaned and prepped in the usual sterile fashion. Using ultrasound guidance, the peritoneal cavity was accessed with a 5-Sinhala paracentesis needle/catheter system. The trocar was removed. A total of 3650 ml of clovis-colored fluid were removed from the peritoneal cavity. The catheter was removed and a sterile dressing was applied. The procedure was well tolerated. US/Paracentesis with US IMPRESSION: Ultrasound guided paracentesis. Electronically Signed: Emmanuel Craig MD at 13:55 EDT , Service support ,
[2021-04-23] MEDS: Lidocaine 2% (20 ml mdv) 20 ML Vial (13:15)
[2021-04-23 13:20] VITALS: BP 116/65; BP 99/55; PULSE 82; PULSE 83; RESP 16; TEMP 36.8; O2SAT 98; O2SAT 99
== END ==
PROVIDERS: Referring Provider Nurse Practitioner Adult Health; Visit Provider Nurse Practitioner Adult Health
DX: R18.8 Other ascites (principal)
CPT/HCPCS: 49083; A4216

== ENCOUNTER → 2021-04-30 12:32 | Outpatient (CLI) | payer MEDICARE, MEDICAID, SELFPAY ==
[2021-04-07 00:41] VITALS: BMI 25.7
[2021-04-11 10:04] VITALS: BMI 24.3
--- NOTE | 2021-04-30 12:33 | US_ITS ---
PROCEDURE: Ultrasound guided paracentesis. DATE OF EXAMINATION: 04/30/2021. INDICATION: Male, 60 years old. Ascites. PHYSICIAN: Emmanuel Craig M.D. TECHNIQUE: The risks, benefits, and alternatives to the procedure were explained to the patient. The specific risks of bleeding, infection, and damage to bowel were detailed and accepted. Witnessed informed consent was obtained. The abdomen was ultrasonographically surveyed. An appropriate pocket of fluid was identified at the right lower quadrant. The skin were cleaned and prepped in the usual sterile fashion. Using ultrasound guidance, the peritoneal cavity was accessed with a 5-Greenlandic paracentesis needle/catheter system. The trocar was removed. A total of 1500 ml of hamper colored fluid were removed from the peritoneal cavity. The catheter was removed and a sterile dressing was applied. The procedure was well tolerated. US/Paracentesis with US IMPRESSION: Ultrasound guided paracentesis. Electronically Signed: Emmanuel Craig MD at 13:34 EDT , Service support ,
[2021-04-30 12:45] VITALS: BP 103/68; BP 94/48; PULSE 74; PULSE 76; RESP 14; RESP 18; TEMP 36.6; O2SAT 100; O2SAT 98
--- NOTE | 2021-05-01 14:21 | NURSING ---
Pt asked that this RN call Hospice to see if nurse could come out to the house because of abdominal pain. CECE Coronel informed pt she would call. CECE Coronel spoke with Thong at [facility] who states she will put a page out for a nurse to go to pt's house to evaluate him.
== END ==
PROVIDERS: Referring Provider Nurse Practitioner Adult Health; Visit Provider Nurse Practitioner Adult Health
DX: R18.8 Other ascites (principal)
CPT/HCPCS: 49083

== ENCOUNTER → 2021-05-10 09:27 | Outpatient (CLI) | payer MEDICARE, MEDICAID, SELFPAY ==
[2021-04-07 00:41] VITALS: BMI 25.7
[2021-04-11 10:04] VITALS: BMI 24.3
--- NOTE | 2021-05-10 09:29 | US_ITS ---
PROCEDURE: Ultrasound guided paracentesis. DATE OF EXAMINATION: 05/10/2021. INDICATION: Male, 60 years old. Ascites. PHYSICIAN: Emmanuel Craig M.D. TECHNIQUE: The risks, benefits, and alternatives to the procedure were explained to the patient. The specific risks of bleeding, infection, and damage to bowel were detailed and accepted. Witnessed informed consent was obtained. The abdomen was ultrasonographically surveyed. An appropriate pocket of fluid was identified at the right lower quadrant. The skin were cleaned and prepped in the usual sterile fashion. Using ultrasound guidance, the peritoneal cavity was accessed with a 5-[place] paracentesis needle/catheter system. The trocar was removed. A total of 900 ml of clovis-colored fluid were removed from the peritoneal cavity. The catheter was removed and a sterile dressing was applied. The procedure was well tolerated. US/Paracentesis with US IMPRESSION: Ultrasound guided paracentesis. Electronically Signed: Emmanuel Craig MD at 10:24 EDT , Service support ,
[2021-05-10 09:43] VITALS: BP 113/65; BP 119/64; BP 125/64; PULSE 82; PULSE 83; RESP 16; TEMP 36.8; O2SAT 100
[2021-05-10] MEDS: Lidocaine 2% (5ml sdv) 5 ML VIAL.MPF INFILT (09:50)
== END ==
PROVIDERS: Referring Provider Nurse Practitioner Adult Health; Visit Provider Nurse Practitioner Adult Health
DX: R18.8 Other ascites (principal)
CPT/HCPCS: 49083

== ENCOUNTER → 2021-05-21 12:21 | Outpatient (CLI) | payer MEDICARE, MEDICAID, SELFPAY ==
[2021-04-07 00:41] VITALS: BMI 25.7
--- NOTE | 2021-05-21 12:23 | US_ITS ---
STUDY: ABDOMINAL ULTRASOUND - RIGHT UPPER QUADRANT REASON FOR VISIT: Male, 60 years old ASCITES TECHNIQUE: Ultrasound evaluation of the right upper quadrant was performed with real-time and static schrader-scale imaging. TECHNICAL QUALITY: Adequate. COMPARISON: Previous abdomen ultrasound obtained on 05/10/2021 FINDINGS: This patient was assessed for a therapeutic paracentesis. Ultrasound was performed of the abdomen and there is a pocket of the ascites seen adjacent to the liver but this small pocket of ascites has only slightly increased in size since the previous study obtained on 05/10/2021. On the last ultrasound Paracentesis only 900 cc was removed. During previous paracentesis up to 3-4000 CC had been removed and it was felt that there was little or no therapeutic benefit to do aparacentesis at this time. The patient will be scheduled for a repeat paracentesis and week. US/Abdomen Limited IMPRESSION: A [id number] amount of ascites is noted in the upper abdomen and a therapeutic paracentesis in a week will be scheduled for this patient. Electronically Signed: Kike Streeter DO at 16:18 EDT Tel , Service support ,
[2021-05-21 12:32] VITALS: BP 108/71; PULSE 102; RESP 18; O2SAT 99
[2021-05-21 12:45] VITALS: BP 113/74; PULSE 98; RESP 18; O2SAT 99
[2021-05-21 13:34] VITALS: BP 113/74; PULSE 99; RESP 16; O2SAT 100
--- NOTE | 2021-05-21 13:41 | NURSING ---
At approximately 1230 Pt enters / room in wheelchair, extremely tired and continually falling asleep. Pt reports falling this morning while taking out dog. He is extremely difficult to understand. He is transferred to the bed by Marlyn /S francis and CECE Coronel. During U/S examination CECE Coronel talks with pt's composite mechanic, Diana, who brings pt to his appts. Diana states pt seems more tired than his usual and wasn't making complete sense on their drive over. CECE Coronel states she thinks it would be a good idea to have him seen in the ED and be evaluated, that his ammonia level may be elevated. Diana states that the patient is now enrolled in Hospice so she isn't sure if he would agree to go to ED or if ED is an option. Hospice is contacted. Pt's turn out worker Kimberly states that patient is under hospice care, however the patient has changed his code status from DNRCC to Full Code so she believes he should go to the ED if he is not alert and oriented. While CECE Coronel is talking with Hospice, /S shows Dr. Streeter pt's images of abdominal ascites. Dr. Streeter determines there is not enough fluid to drain this week and that pt should be brought back next week. CECE Coronel then asks pt if he knows where he is, to which he replies, [facility]. CECE Coronel then asks what month it is, pt replies April. CECE Coronel then asks pt name and birthday to which he replies Napoleon Mosqueda 1960 CECE Coronel tells pt she is concerned that he is so tired, falling asleep and difficult to understand and she would like him to be seen in the ED to see if any of his medications need to be adjusted. Pt states that he will not go to the ED. CECE Coronel calls turn out worker and reports that pt is Alert and Oriented and she is unable to take him to the ED to be evaluated if he does not want to go. CECE Coronel states pt can get labs drawn at [facility] if there is an order. CECE Coronel receives an order from Dr. Chris Mccollum to draw an ammonia level. Kimberlyturn out worker states she is leaving [place] and driving to the hospital to speak with Mr. Mosqueda about his wishes and what he would like to do. CECE Coronel assisted pt to the bathroom at which time pt was unable to stand on his own without assistance. CECE Coronel asks pt How are you doing this at home? Pt states It's easier at home Pt is transferred back to wheelchair and into a Radiology bed. CECE Coronel drawns pt's ammonia level. He continuously falls asleep and when awake is difficult to understand.
--- NOTE | 2021-05-21 14:10 | NURSING ---
CECE Harris from hospice here with a wafer production lead worker to talk to patient.
[2021-05-21 14:15] VITALS: BP 101/74; PULSE 95; RESP 16; O2SAT 100
[2021-05-21 14:45] VITALS: BP 123/70; PULSE 93; RESP 16; O2SAT 100
--- NOTE | 2021-05-21 15:09 | NURSING ---
KimberlyRN and Umm, Performing Artist from hospice arrived in Radiology at approximately 1400. They sat and talked with Napoleon who is already an established patient of theirs. Kimberly and Umm spent approximately 45 minutes talking with the patient and discussing an appropriate plan of care. Pt is aware his ammonia level is high which is causing his fatigue and continual sleeping. Pt refuses to be seen in the hospital or as an inpatient hospice patient, he insists on going back to his residence. Pt is alert and oriented an able to make his own medical decisions. Pt is aware of the risks of going home. Hospice reports they are going to increase the nursing care in his home to twice a day. Pt's manager graphic Diana able to take patient back to his home.
== END ==
LOC: US 12:22
PROVIDERS: Family Medicine Hospice and Palliative Medicine; Referring Provider Nurse Practitioner Adult Health; Visit Provider Nurse Practitioner Adult Health
DX: R18.8 Other ascites (principal)
CPT/HCPCS: 76705; 82140

== ENCOUNTER 2021-05-23 13:58 | Inpatient (IN) | payer MEDICARE, MEDICAID, SELFPAY ==
[2021-05-23] VITALS (7 sets, daily range): BP systolic 107–141; BP diastolic 67–84; PULSE 87–115; RESP 11–18; TEMP 36.4–37; O2SAT 97–100; BMI 24.0; BMI 24.1
--- NOTE | 2021-05-23 14:31 | RAD_ITS ---
EXAM DESCRIPTION: PORTABLE AP CHEST CLINICAL HISTORY: 60 years Male, weakness weakness COMPARISON: Previous is obtained on 04/04/2021 FINDINGS: The thorax is intact. The heart and mediastinum appear to be within normal limits. The lungs appear to be well areated without evidence of pneumonic consolidation or pleural effusion. Subsegmental atelectasis is noted in both lung bases. This is due to a lesser inspiratory effort. RAD/Chest 1 View (Portable) IMPRESSION: No acute pathology Electronically Signed: Kike Streeter DO at 15:16 EDT Tel , Service support ,
--- NOTE | 2021-05-23 14:31 | EKG12_ITS ---
Test Reason : GEN ILLNESS Blood Pressure : / mmHG Vent. Rate : 110 BPM Atrial Rate : 110 BPM P-R Int : 160 ms QRS Dur : 092 ms QT Int : 374 ms P-R-T Axes : 028 -41 -04 degrees QTc Int : 506 ms Sinus tachycardia Left axis deviation Low voltage QRS Inferior infarct , age undetermined Nonspecific T wave abnormality Abnormal ECG Confirmed by SAHARA GARCIA, PRIYA ([id number]), editor school photograph FREDIS PULIDO ([id number]) on 05/27/2021 9:57:19 AM Referred By: RYAN Confirmed By:PRIYA SHOEMAKER MD
--- NOTE | 2021-05-23 14:33 | EX.ED.DYSGE1 ---
HPI History of Present Illness Chief Complaint: Fatigue Detail of Chief Complaint: Confusion, fall Informant: patient Narrative Narrative: Patient presents to the emergency department via EMS from home. Patient states that he fell this morning around 10 AM and had a hard time getting up and finally it is medical alert button to bring him in. I am seeing the patient 1425. Patient complains of mild headache. Patient admits to drinking 3 beers today. Patient apparently is on hospice and has history of alcohol abuse. Patient states he has been taking his medications regularly. The house was apparently in disarray and there is concern that patient unable to care for self and not taking his medications correctly. Patient has history of bipolar disorder, GI bleed, seizure disorder. PFSH PFSH Medical History Alcohol abuse Anxiety Ascites Bipolar disorder Cirrhosis Depression GI bleed Hepatitis Seizure Smoker Home Medications atorvastatin 40 mg PO QHS 03/26/20 [History Last Taken 03/26/21] citalopram 20 mg PO DAILY 12/07/20 [History Last Taken 03/27/21] cetirizine 10 mg PO DAILY PRN PRN #0 12/14/20 [Rx Last Taken 03/27/21] folic acid 1 mg PO DAILY 03/22/21 [History Last Taken 03/27/21] mirtazapine 45 mg PO QHS 03/22/21 [History Last Taken 03/26/21] quetiapine [Seroquel] 300 mg PO QHS 03/22/21 [History Last Taken 03/26/21] thiamine HCl (vitamin B1) [Vitamin B-1] 100 mg PO BIDCM 03/22/21 [History Last Taken 03/27/21] cholecalciferol (vitamin D3) 1,250 mcg PO MO 03/25/21 [History Last Taken 03/25/21] furosemide [Lasix] 40 mg PO DAILY 03/25/21 [History Last Taken 03/27/21] levetiracetam 500 mg PO BID 03/25/21 [History Last Taken 03/27/21] magnesium oxide 400 mg PO DAILY 03/25/21 [History Last Taken 03/27/21] multivitamin 1 tab PO DAILY 03/25/21 [History Last Taken 03/27/21] lactulose 10 g PO DAILY 04/09/21 [History Last Taken Unknown] rifaximin [Xifaxan] 550 mg PO BID 30 Days #60 tab 04/09/21 [Rx Last Taken Unknown] spironolactone 12.5 mg PO DAILY #15 tab 04/09/21 [Rx Last Taken Unknown] vancomycin [Firvanq] 125 mg PO Q6 8 Days #160 ml 04/09/21 [Rx Last Taken Unknown] naproxen [Naprosyn] 500 mg PO BID PRN #20 tab 04/11/21 [Rx Last Taken Unknown] Allergy/AdvReac Type Severity Reaction Status Date / Time lisinopril Allergy Angioedema Verified 05/23/21 14:03 peanut Allergy Hives Verified 05/23/21 14:03 Family History Father Myocardial infarction Mother Stomach cancer Social History household members: none housing: apartment Smoking Status: Current every day smoker tobacco type: cigarettes alcohol intake: current alcohol intake frequency: 0-2 drinks per day substance use type: marijuana ROS ROS ED ROS Narrative Somnolence, generalized weakness Constitutional Constitutional ED: Reports systems reviewed and no addt'l complaints, except as documented; Denies body ache(s), change in weight or chills Eyes Eyes: Denies acute decrease in peripheral vision, change in vision, double vision or loss of vision ENT ENT ED: Reports none; Denies ear pain, lip swelling, loss taste/smell, neck pain, otalgia or sore throat Cardiovascular Cardiovascular: Reports none; Denies abdominal pain, chest pain with activity, leg edema, lightheadedness, palpitations, rapid heart rate or syncope Respiratory/Chest Respiratory/Chest: Reports none; Denies change in mental status, dry cough, dyspnea, hemoptysis, shortness of breath at rest or shortness of breath with exertion Gastrointestinal Gastrointestinal: Reports none; Denies abdominal pain, change in stool character, diarrhea, hematemesis, hematochezia, melena, rectal bleeding or vomiting Genitourinary Genitourinary ED: Reports none; Denies abdominal discomfort, anuria, dysuria, genital pain or polyuria Musculoskeletal Musculoskeletal: Reports none; Denies arthralgias, back pain, difficulty walking, extremity pain, muscle weakness or myalgias Integumentary Reports none; Denies abscess or rash Neurologic Neurologic: Reports none and headache(s); Denies abnormal gait, confusion, focal weakness, frequent falls, loss of vision, numbness, paresthesias, radicular pain, vertigo or weakness Psychiatric Psychiatric: Reports systems reviewed and no addt'l complaints, except as documented and none; Denies behavioral changes, confusion, difficulty concentrating, hallucinations, suicidal ideation, tactile hallucinations or visual hallucinations Endocrine Endocrinology: Denies none, cold intolerance, excessive sweating, fatigue or heat intolerance Hematologic/Lymphatic Hematologic/Lymphatic: Reports none; Denies anemia, easy bleeding or easy bruising Allergic/Immunologic Allergic/Immunologic ED: Denies as per HPI, none, lip swelling, mouth swelling, throat swelling, tongue swelling or hives EXAM Physical Exam Const Vital Signs: 05/23/21 13:59 05/23/21 14:04 05/23/21 14:05 Temperature 98.4 F 98.4 F Temperature Source Oral Oral Pulse Rate 115 H 115 H Respiratory Rate 12 12 Respiratory Effort Normal Non-Labored Respiratory Pattern Normal Blood Pressure 112/67 112/67 Blood Pressure Mean 82 82 Pulse Ox 97 97 Oxygen Delivery Method Room Air Room Air 05/23/21 15:10 Temperature 98.6 F Temperature Source Temporal Pulse Rate 102 H Respiratory Rate 11 L Respiratory Effort Respiratory Pattern Blood Pressure 110/82 H Blood Pressure Mean 91 Pulse Ox 99 Oxygen Delivery Method Room Air Positive well nourished and well developed General Appearance ED: well developed and NAD HEENT Reports TM's clear and moist mucous membranes normocephalic and atraumatic; Negative for trauma or tenderness Tympanic Membrane ED: Yes TM's clear Eyes PERRL and EOMs intact bilaterally General Eye ED: Negative for pale conjunctiva or scleral icterus Neck no lymphadenopathy, supple and no JVD General: Negative for tenderness Chest Wall inspection of chest normal and palpation of chest normal Chest: Negative for tenderness Resp normal respiratory effort and clear to auscultation bilaterally Effort and Inspection: Negative for respiratory distress or pain with movement Auscultation: Negative for rhonchi, wheezes or diminished lung sounds Cardio regular rate, regular rhythm, S1 normal heart sound, S2 normal heart sound and no murmurs Peripheral Pulses: pulses 2+ throughout GI normal to inspection, nondistended, normoactive bowel sounds, soft to palpation, non-tender, non-distended and no masses Back/Spine no CVA tenderness and no thoracic nor lumbar tenderness Extremity normal to inspection General Extremety ED: Negative for edema General Extremity: Negative for edema Neuro CN's II-XII intact bilaterally, no sensory deficits noted and gait normal Neuro Narrative: Patient alert to place however he thought it was 2019 and he thought the month was April. Sensorium / Orientation: awake, alert, oriented to person, oriented to place and oriented to time Motor Exam: strength 5/5 throughout and strength abnormal Psych mental status grossly normal Skin no rashes or lesions noted and no wounds MDM MDM MDM Narrative Medical decision making narrative: Discussed with hospitalist will evaluate patient for admission for hepatic encephalopathy. There is concern that patient is unable to care for himself. Patient also noted to have acute kidney injury. Patient population is very complicated and difficult right now this is an frequent renal Lab Data Attestation: I reviewed the patient's lab results. Labs: Laboratory Results - last 24 hr 05/23/21 05/23/21 05/23/21 14:12 14:12 14:12 WBC 15.5 H RBC 3.04 L Hgb 9.9 L Hct 28.0 L MCV 92.1 MCH 32.6 H MCHC 35.4 RDW Std Deviation 53.1 H RDW Coeff of William 15.8 H Plt Count 147 L MPV 10.1 Immature Gran % (Auto) 0.600 Neut % (Auto) 79.7 H Lymph % (Auto) 10.1 L [place] % (Auto) 9.5 Eos % (Auto) 0.0 Baso % (Auto) 0.1 Absolute Neuts (auto) 12.4 H Absolute Lymphs (auto) 1.57 Nucleated RBC % 0 Sodium 131 L Potassium 3.5 Chloride 98 Carbon Dioxide 19.0 L Anion Gap 14 BUN 9 Creatinine 1.89 H Estim Creat Clear Calc 43.16 Est GFR (MDRD) Af Amer 47 L Est GFR (MDRD) Non-Af 39 L BUN/Creatinine Ratio 4.8 L Glucose 143 H Calcium 7.5 L Total Bilirubin 2.00 H AST 106 H ALT 37 Alkaline Phosphatase 265 H Ammonia Troponin I High Sens 38.6 Total Protein 6.9 Albumin 1.5 L Globulin 5.4 H Albumin/Globulin Ratio 0.3 L Ethyl Alcohol 8.0 05/23/21 14:12 WBC RBC Hgb Hct MCV MCH MCHC RDW Std Deviation RDW Coeff of William Plt Count MPV Immature Gran % (Auto) Neut % (Auto) Lymph % (Auto) [place] % (Auto) Eos % (Auto) Baso % (Auto) Absolute Neuts (auto) Absolute Lymphs (auto) Nucleated RBC % Sodium Potassium Chloride Carbon Dioxide Anion Gap BUN Creatinine Estim Creat Clear Calc Est GFR (MDRD) Af Amer Est GFR (MDRD) Non-Af BUN/Creatinine Ratio Glucose Calcium Total Bilirubin AST ALT Alkaline Phosphatase Ammonia 51.0 H Troponin I High Sens Total Protein Albumin Globulin Albumin/Globulin Ratio Ethyl Alcohol Radiography Chest X-Ray - ED: 1 View Diagnostic Testing: Radiology Impression Chest X-Ray 05/23/21 14:31 IMPRESSION: No acute pathology Electronically Signed: Kike Streeter DO at 15:16 EDT Tel , Service support , Brain CT 05/23/21 14:53 IMPRESSION: Normal CT scan of the head. Electronically Signed: Kike Streeter DO at 15:09 EDT Tel , Service support , 1 view chest x-ray obtained interpreted by myself as no acute disease process. Radiology in agreement. Discharge Plan Triage Chief Complaint: Fatigue ED Provider: Jacqueline Aponte Dx/Rx/DC Orders Clinical Impression: Acute hepatic encephalopathy, PASQUALE (acute kidney injury), Generalized muscle weakness Prescriptions: No Action atorvastatin 40 MG tablet 40 mg PO QHS RF: 0 citalopram 20 MG tablet 20 mg PO DAILY RF: 0 cetirizine 10 MG tablet 10 mg PO DAILY PRN PRN (Reason: Allergies) Qty: 0 RF: 0 quetiapine [Seroquel] 300 mg Tablet 300 mg PO QHS RF: 0 thiamine HCl (vitamin B1) [Vitamin B-1] 100 mg Tablet 100 mg PO BIDCM RF: 0 mirtazapine 45 mg tablet 45 mg PO QHS RF: 0 folic acid 1 mg Tablet 1 mg PO DAILY RF: 0 magnesium oxide 400 mg magnesium Tablet 400 mg PO DAILY RF: 0 multivitamin 1 EACH tablet 1 tab PO DAILY RF: 0 furosemide [Lasix] 40 mg tablet 40 mg PO DAILY RF: 0 cholecalciferol (vitamin D3) 1,250 mcg (50,000 unit) Capsule 1,250 mcg PO MO RF: 0 levetiracetam 500 mg tablet 500 mg PO BID RF: 0 lactulose 10 gram/15 mL (15 mL) solution 10 g PO DAILY RF: 0 Firvanq 25 mg/mL Recon Soln 125 mg PO Q6 8 Days Qty: 160 RF: 0 spironolactone 25 mg tablet 12.5 mg PO DAILY Qty: 15 RF: 0 Xifaxan 550 mg Tablet 550 mg PO BID 30 Days Qty: 60 RF: 0 naproxen [Naprosyn] 500 mg tablet 500 mg PO BID PRN (Reason: pain) Qty: 20 RF: 0 Primary Care Provider: [facility] Debra Renner Referrals: Medical Debra Renner [Primary Care Provider] - Disposition Disposition: Acute Care Hospital [facility]
[2021-05-23 14:42] LABS: Absolute Lymphocyte Count 1.57 X10^3/uL (0.83-4.51); Absolute Neutrophil Count 12.4 X10^3/uL (2.0-7.7); Basophil# 0.02 X10^3/uL; Basophil% 0.1 % (0-1); Hemoglobin 9.9 g/dL (13.0-16.5); Lymphocyte # 1.57 X10^3/ul (0.83-4.51); Lymphocyte % 10.1 % (19-41); Mean Corp Hgb Conc 35.4 g/dL (32-36); Mean Corpuscular Hgb 32.6 pg (27.0-32.0); Mean Corpuscular Volume 92.1 fL (80-94); Mean Platelet Vol. 10.1 fl (6.2-12.0); Monocyte# 1.48 X10^3/uL; Monocyte% 9.5 % (0-10); NRBC Flagged by Analyzer 0 % (0-5); Neutrophil # 12.36 X10^3/uL (2.7-7.7); Neutrophil % 79.7 % (47-70); Platelet Count 147 K/mm3 (150-450); RBC Distribution Width CV 15.8 % (11.6-14.6); RBC Distribution Width SD 53.1 fl (35.1-43.9); Red Blood Count 3.04 M/mm3 (4.6-6.2); White Blood Count 15.5 K/mm3 (4.4-11.0)
--- NOTE | 2021-05-23 14:53 | CT_ITS ---
EXAM DESCRIPTION: CT scan of the head CLINICAL HISTORY: 60 years Male, fall COMPARISON: Previous CT scan obtained on 03/25/2021 TECHNIQUE: A CT scan of the head was performed without IV contrast in the axial plane. Coronal and sagittal reconstruction images were also obtained. This exam was performed according to our departmental dose-optimization program, which includes automated exposure control, adjustment of the mA and/or kV according to patient size and/or use of iterative reconstruction technique. FINDINGS: The chadwick, medulla, and cerebellum appear to be normal. The ventricles and sulci are normal in size and shape. The basal ganglia appear to be normal. The inner and outer tables of the skull are intact. The frontal, ethmoid, maxillary, and sphenoid sinuses are normal. The mastoid air cells are normal. CT/Brain/Head without Contrast IMPRESSION: Normal CT scan of the head. Electronically Signed: Kike Streeter DO at 15:09 EDT Tel , Service support ,
[2021-05-23 14:58] LABS: ALB/GLOB Ratio 0.3 RATIO (0.9-2.4); AST(SGOT) 106 U/L (15-37); Alanine Aminotransfer ALT/SGPT 37 U/L (16-61); Albumin, Serum 1.5 g/dL (3.2-5.0); Alkaline Phosphatase 265 U/L (45-117); Anion Gap 14 (5-15); BUN 9 mg/dL (7-18); BUN/Creat Ratio 4.8 RATIO (10-20); Calcium,Total 7.5 mg/dL (8.5-10.1); Chloride 98 mmol/L (98-107); Creatinine, Serum 1.89 mg/dL (0.70-1.30); EST Glomerular Filtration Rate 39 mL/min (>60); Est Glom Filt Rate - Afr Amer 47 mL/min (>60); Estimated Creatinine Clearance 43.16 ml/min; Globulin 5.4 g/dL (2.2-4.2); Glucose 143 mg/dL (74-106); Potassium 3.5 mmol/L (3.5-5.1); Protein, Total 6.9 g/dL (6.4-8.2); Sodium Level 131 mmol/L (136-145); Troponin-I HS 38.6 pg/mL (3.0-78.5)
[2021-05-23] MEDS: 0.9% Normal Saline 1,000 ML 150 ML IV (15:09)
--- NOTE | 2021-05-23 15:30 | CM.ED ---
SOCIAL WORK Referral Source: EMS, Silvestre with Adult Protective Services, [facility] Nurse-Kimberly Reason for Consult: Discharge Planning-Adult Protective Services Discussed case with EMS, Kimberly with [facility], and Silvestre with APS. Patient has called [phone] since the . Patient unable to care for self or 2 dogs in the home. Patient lives home alone. Fiction And Nonfiction Author to be contacted by [facility] and Silvestre. Silvestre reports may need to seek guardianship. Patient has been discharged from Hospice services at this time. Per Kimberly with Hospice, patient will need to be a DNR to return to services. Patient unable to participate in assessment as he continues to fall asleep. Silvestre with APS reports will be in tomorrow to see patient. SW to follow. Plan: Admit Tramaine Soto MSW, HYDRAULIC PRESS OPERATOR
--- NOTE | 2021-05-23 15:48 | PCM.HP.STD ---
HPI - General General Date of Service: 05/23/21 Chief Complaint: weakness HPI Narrative HERB RICHARDS, is a 60 M who presents with weakness from home. EMS was called and patient was brought to the hospital. Patient is hospice but is currently full code. Discussed with Kimberly from hospice who is present in the emergency room. Patient is too groggy to give any clarity in regards to his CODE STATUS at this time. Hospice stated that the patient could be declared to Comfort Care arrest or comfort care that they could do hospice inpatient unit or at home. Patient routinely comes to the hospital and leaves AMA any time stating that he has to take care of his dogs. Apparently the friend that he lives with is also hospice unable to take care of the patient's dog's dog daycare provider is going to be taking the dogs away. Patient is a poor historian and unable to provide any adequate history. PFSH Medical History Alcohol abuse Anxiety Ascites Bipolar disorder Cirrhosis Depression GI bleed Hepatitis Seizure Smoker Home Medications atorvastatin 40 mg PO QHS 03/26/20 [History Last Taken 03/26/21] citalopram 20 mg PO DAILY 12/07/20 [History Last Taken 03/27/21] cetirizine 10 mg PO DAILY PRN PRN #0 12/14/20 [Rx Last Taken 03/27/21] mirtazapine 45 mg PO QHS 03/22/21 [History Last Taken 03/26/21] quetiapine [Seroquel] 300 mg PO QHS 03/22/21 [History Last Taken 03/26/21] thiamine HCl (vitamin B1) [Vitamin B-1] 100 mg PO BIDCM 03/22/21 [History Last Taken 03/27/21] cholecalciferol (vitamin D3) 1,250 mcg PO MO 03/25/21 [History Last Taken 03/25/21] furosemide [Lasix] 40 mg PO DAILY 03/25/21 [History Last Taken 03/27/21] levetiracetam 500 mg PO BID 03/25/21 [History Last Taken 03/27/21] magnesium oxide 400 mg PO DAILY 03/25/21 [History Last Taken 03/27/21] multivitamin 1 tab PO DAILY 03/25/21 [History Last Taken 03/27/21] lactulose 10 g PO DAILY 04/09/21 [History Last Taken Unknown] hydromorphone 1 mg PO Q2H PRN 05/23/21 [History Last Taken Unknown] hydromorphone 2 mg PO BID 05/23/21 [History Last Taken 05/23/21] lorazepam 0.5 mg PO Q6H PRN 05/23/21 [History Last Taken Unknown] metoprolol succinate 25 mg PO DAILY 05/23/21 [History Last Taken 05/23/21] potassium chloride 20 meq PO DAILY 05/23/21 [History Last Taken 05/23/21] spironolactone 12.5 mg PO DAILY 05/23/21 [History Last Taken 05/23/21] Allergy/AdvReac Type Severity Reaction Status Date / Time lisinopril Allergy Angioedema Verified 05/23/21 14:03 peanut Allergy Hives Verified 05/23/21 14:03 Family History Father Myocardial infarction Mother Stomach cancer Social History household members: none housing: apartment Smoking Status: Current every day smoker tobacco type: cigarettes alcohol intake: current alcohol intake frequency: 0-2 drinks per day substance use type: marijuana ROS Review of Systems ROS Unobtainable: due to encephalopathy Vital Signs Vital Signs Vital Signs: 05/23/21 13:59 05/23/21 14:04 05/23/21 14:05 Temperature 36.9 C 36.9 C Temperature Source Oral Oral Pulse Rate 115 H 115 H Respiratory Rate 12 12 Respiratory Effort Normal Non-Labored Respiratory Pattern Normal Blood Pressure 112/67 112/67 Blood Pressure Mean 82 82 Pulse Ox 97 97 Oxygen Delivery Method Room Air Room Air 05/23/21 15:10 05/23/21 15:31 Temperature 37.0 C 36.4 C L Temperature Source Temporal Temporal Pulse Rate 102 H 99 Respiratory Rate 11 L 12 Respiratory Effort Respiratory Pattern Blood Pressure 110/82 H 119/77 Blood Pressure Mean 91 91 Pulse Ox 99 99 Oxygen Delivery Method Room Air Room Air Weight Weight: 78.2 kg Body Mass Index (BMI) 24.0 Physical Exam Narrative Very groggy and keeps dozing off. Speech is incomprehensible at times. Alert and oriented x2. Keeps nodding off during encounter despite numerous attempts to keep him awake. Resp normal respiratory effort, no retractions, no use of accessory muscles and clear to auscultation bilaterally Cardio regular rate, regular rhythm, S1 normal heart sound and S2 normal heart sound GI normal to inspection, nondistended, normoactive bowel sounds, soft to palpation and non-tender GI Narrative: Distended but not taut Extremity Extremity Narrative: Edema bilateral lower extremities Results Lab / Micro Data Attestation: I reviewed the patient's lab results. Result Diagrams: 05/23/21 14:12 05/23/21 14:12 Labs: Laboratory Results - last 24 hr 05/23/21 14:12: WBC 15.5 H, RBC 3.04 L, Hgb 9.9 L, Hct 28.0 L, MCV 92.1, MCH 32.6 H, MCHC 35.4, RDW Std Deviation 53.1 H, RDW Coeff of William 15.8 H, Plt Count 147 L, MPV 10.1, Immature Gran % (Auto) 0.600, Neut % (Auto) 79.7 H, Lymph % (Auto) 10.1 L, [place] % (Auto) 9.5, Eos % (Auto) 0.0, Baso % (Auto) 0.1, Absolute Neuts (auto) 12.4 H, Absolute Lymphs (auto) 1.57, Nucleated RBC % 0 05/23/21 14:12: Sodium 131 L, Potassium 3.5, Chloride 98, Carbon Dioxide 19.0 L, Anion Gap 14, BUN 9, Creatinine 1.89 H, Estim Creat Clear Calc 43.16, Est GFR (MDRD) Af Amer 47 L, Est GFR (MDRD) Non-Af 39 L, BUN/Creatinine Ratio 4.8 L, Glucose 143 H, Calcium 7.5 L, Total Bilirubin 2.00 H, AST 106 H, ALT 37, Alkaline Phosphatase 265 H, Troponin I High Sens 38.6, Total Protein 6.9, Albumin 1.5 L, Globulin 5.4 H, Albumin/Globulin Ratio 0.3 L 05/23/21 14:12: Ethyl Alcohol 8.0 05/23/21 14:12: Ammonia 51.0 H Radiology Impression Chest X-Ray 05/23/21 14:31 IMPRESSION: No acute pathology Electronically Signed: Kike Streeter DO at 15:16 EDT Tel , Service support , Brain CT 05/23/21 14:53 IMPRESSION: Normal CT scan of the head. Electronically Signed: Kike StreeterDO at 15:09 EDT Tel , Service support , Assessment & Plan Assessment/Plan (1) Acute hepatic encephalopathy: (2) PASQUALE (acute kidney injury): PLAN: 1. Encephalopathy Likely multifactorial Ammonia slightly elevated so the component of [place] cephalopathy Continue with the lactulose as well as rifaximin 2. Acute kidney injury Baseline creatinine is 0.54, today at 1.89 Will hold Lasix as well as spironolactone and give the patient 500 cc of saline. Unclear if this is prerenal versus hepatorenal 3. Cirrhosis MELD 22 Poor prognosis. Patient not a candidate for liver transplant as he still actively drinking. 4. VTE prophylaxis with SCDs. 5. Prognosis: Poor. Try to clarify CODE STATUS with the patient but he is too groggy to provide an adequate history at this time. Patient has previously been full code as outpatient and he will continue to remain full code at this time until he can definitively tell us otherwise. Patient's chance for any successful recovery from CPR is abysmal to nil. When the patient is more alert will need to formally discuss CODE STATUS with him. If patient cannot state that he would consent to being DNR Comfort Care arrest at the minimum then could facilitate the patient going possibly to the inpatient hospice unit. Charges/Coding Visit Charges Inpatient E&M: 08426 Init Hosp L3
[2021-05-23] MEDS: Lactulose 20 GM/30 ML UDC 30 GM PO (16:03)
[2021-05-23] MEDS: rifAXIMin 550 MG Tablet PO ×3 (16:03→21:19)
[2021-05-23] MEDS: 0.9% Normal Saline 1,000 ML 15 ML IV (19:38)
[2021-05-23] MEDS: levETIRAcetam 500 MG Tablet PO (21:17)
[2021-05-23] MEDS: Mirtazapine 15 MG Tablet 45 MG PO (21:17)
[2021-05-23] MEDS: Atorvastatin Calcium 40 MG Tablet PO (21:18)
[2021-05-24 02:50] VITALS: BP 92/56; PULSE 83; RESP 16; TEMP 37; O2SAT 100
[2021-05-24 03:10] VITALS: BP 101/64; PULSE 82; RESP 18; TEMP 37.1; O2SAT 98
[2021-05-24 05:19] LABS: International Normalized Ratio 1.8; Prothrombin Time (Protime)PT. 20.3 SECONDS (11.7-14.9)
[2021-05-24 05:28] LABS: ALB/GLOB Ratio 0.3 RATIO (0.9-2.4); AST(SGOT) 108 U/L (15-37); Alanine Aminotransfer ALT/SGPT 35 U/L (16-61); Albumin, Serum 1.3 g/dL (3.2-5.0); Alkaline Phosphatase 239 U/L (45-117); Anion Gap 8 (5-15); BUN 10 mg/dL (7-18); BUN/Creat Ratio 5.4 RATIO (10-20); Calcium,Total 7.4 mg/dL (8.5-10.1); Chloride 102 mmol/L (98-107); Creatinine, Serum 1.86 mg/dL (0.70-1.30); EST Glomerular Filtration Rate 39 mL/min (>60); Est Glom Filt Rate - Afr Amer 48 mL/min (>60); Estimated Creatinine Clearance 43.86 ml/min; Globulin 4.6 g/dL (2.2-4.2); Glucose 90 mg/dL (74-106); Potassium 2.9 mmol/L (3.5-5.1); Protein, Total 5.9 g/dL (6.4-8.2); Sodium Level 133 mmol/L (136-145)
[2021-05-24] MEDS: Menthol/Lanolin/Calamine/Znox 113 GM Tube 1 APPLIC TOPICAL ×2 (06:46→20:53)
[2021-05-24 09:00] VITALS: BP 99/44; PULSE 85; RESP 16; TEMP 37; O2SAT 97
[2021-05-24] MEDS: Multivitamins,Therapeutic Tablet 1 TABLET PO (09:10)
[2021-05-24] MEDS: Citalopram 20 MG Tablet PO (09:10)
[2021-05-24] MEDS: Folic Acid 1 MG Tablet PO (09:10)
[2021-05-24] MEDS: levETIRAcetam 500 MG Tablet PO ×2 (09:10→20:54)
[2021-05-24] MEDS: Furosemide 40 MG Tablet PO (09:10)
[2021-05-24] MEDS: Thiamine Hydrochloride 100 MG Tablet PO ×2 (09:10→18:27)
[2021-05-24] MEDS: Magnesium Chloride 64 MG Delay Rel.Tablet 128 MG PO (09:10)
[2021-05-24] MEDS: Lactulose 20 GM/30 ML UDC 10 GM PO (09:10)
--- NOTE | 2021-05-24 09:48 | CASEMGMT ---
Addendum entered by Ena Singh 05/24/21 16:07: SW spoke w/Linda at [facility], they will likely be able to take him, will need PT/OT and updates Thursday and if they can definitely take him will start precert then. PT/OT evaluations still pending at this time. TETE Sanchez Addendum entered by Ena Singh 05/24/21 13:38: It is anticipated pt will be here through the weekend as precert cannot be started until we have an accepting facility and PT/OT. Also, [facility] often takes several days to give precert. SW called Silvestre at [facility] to let her know, SW to follow up on Thursday. TETE Sanchez Addendum entered by Ena Singh 05/24/21 13:13: SW called [facility], message left and referral faxed. PT/OT are still pending. SW called pt's employment case manager Diana Luong at [facility] per pt's request, message left letting her know referral being sent to [facility]. As per Silvestre at [facility], they may be able to pursue guardianship should it become necessary. SW will continue to follow. TETE Sanchez Addendum entered by Ena Singh 05/24/21 11:53: SW and Silvestre from [facility] spoke w/pt. Pt is agreeing to retirement facility at discharge. SW reviewed list of retirement facilities w/pt in pt's geographic area, complete with quality and resource use data. Pt is agreeable to sending referral to [facility], [place]. SW will send referral shortly. TETE Sanchez Addendum entered by Ena Singh 05/24/21 09:55: Pt has a life alert button and 14 home delivered meals per week through [employer]. TETE Sanchez Original Note: SW called, spoke w/Silvestre at [facility], she will be here shortly to see pt. SW also called pt's employment case manager Klarissa Lorenzana, message left. SW called the coverage line also and let [facility] know. TETE Sanchez
--- NOTE | 2021-05-24 12:50 | PCM.PN.HOSP ---
Subjective Subjective Still wants to be full code. Tired. Objective Data Objective Data Vital Signs: Vital Signs Temp Pulse Resp BP Pulse Ox 37.0 C 85 16 99/44 L 97 05/24/21 09:00 05/24/21 09:00 05/24/21 09:00 05/24/21 09:00 05/24/21 09:00 Oxygen Delivery Method Room Air Weight: 78.2 kg Body Mass Index (BMI) 24.1 Intake & Output: Intake and Output for Last 24 Hours 05/22/21 05/23/21 05/24/21 23:59 23:59 23:59 Intake Total 1200 / 1200 Output Total 300 / 300 Balance 900 / 900 Medical Nutrition Assessment Dietitian: Nutrition Therapy Diagnosis Start: 05/23/21 16:59 Freq: Status: Active Protocol: Document 05/23/21 17:48 RMA (Rec: 05/23/21 17:49 RMA [id number]) Nutrition Malnutrition Evidence of Malnutrition Exists Yes Malnutrition (severe): Chronic Evidenced By Suboptimal Energy Intake ( Severe),Weight Loss (Severe) Clinical Problem Chronic Disease or Condition Related Malnutrition Etiology Severe protein-calorie malnutrition in the context of chronic disease related to increased energy expenditure and ongoing inadequate energy intake Signs/Symptoms as evidenced by alcohol abuse, wt loss~8-10% x 2 months and PO meeting less than 50% estimated nutrition needs x past 2 months Status Active Problem Recommendation Dietitian Recommendations/Changes Continue regular diet as PO established--restrict sodium/ fluid/protein as needed once intake established w/ meals. Will offer ensure pudding TID w/ meals as tolerated. Lab / Micro Data Result Diagrams: 05/23/21 14:12 05/24/21 04:50 Labs: Laboratory Results - last 24 hr 05/23/21 14:12: WBC 15.5 H, RBC 3.04 L, Hgb 9.9 L, Hct 28.0 L, MCV 92.1, MCH 32.6 H, MCHC 35.4, RDW Std Deviation 53.1 H, RDW Coeff of William 15.8 H, Plt Count 147 L, MPV 10.1, Immature Gran % (Auto) 0.600, Neut % (Auto) 79.7 H, Lymph % (Auto) 10.1 L, [place] % (Auto) 9.5, Eos % (Auto) 0.0, Baso % (Auto) 0.1, Absolute Neuts (auto) 12.4 H, Absolute Lymphs (auto) 1.57, Nucleated RBC % 0 05/23/21 14:12: Sodium 131 L, Potassium 3.5, Chloride 98, Carbon Dioxide 19.0 L, Anion Gap 14, BUN 9, Creatinine 1.89 H, Estim Creat Clear Calc 43.16, Est GFR (MDRD) Af Amer 47 L, Est GFR (MDRD) Non-Af 39 L, BUN/Creatinine Ratio 4.8 L, Glucose 143 H, Calcium 7.5 L, Total Bilirubin 2.00 H, AST 106 H, ALT 37, Alkaline Phosphatase 265 H, Troponin I High Sens 38.6, Total Protein 6.9, Albumin 1.5 L, Globulin 5.4 H, Albumin/Globulin Ratio 0.3 L 05/23/21 14:12: Ethyl Alcohol 8.0 05/23/21 14:12: Ammonia 51.0 H 05/24/21 04:50: PT 20.3 H, INR 1.8 05/24/21 04:50: Sodium 133 L, Potassium 2.9 L, Chloride 102, Carbon Dioxide 23.0, Anion Gap 8, BUN 10, Creatinine 1.86 H, Estim Creat Clear Calc 43.86, Est GFR (MDRD) Af Amer 48 L, Est GFR (MDRD) Non-Af 39 L, BUN/Creatinine Ratio 5.4 L, Glucose 90, Calcium 7.4 L, Total Bilirubin 1.50 H, AST 108 H, ALT 35, Alkaline Phosphatase 239 H, Total Protein 5.9 L, Albumin 1.3 L, Globulin 4.6 H, Albumin/Globulin Ratio 0.3 L Radiography Diagnostic Testing: Radiology Impression Chest X-Ray 05/23/21 14:31 IMPRESSION: No acute pathology Electronically Signed: Kike Streeter DO at 15:16 EDT Tel , Service support , Brain CT 05/23/21 14:53 IMPRESSION: Normal CT scan of the head. Electronically Signed: Kike Streeter DO at 15:09 EDT Tel , Service support , Physical Exam Const Constitutional Narrative: somnolent. keeps dozing off. HEENT Head and Scalp: normocephalic Neck no lymphadenopathy Resp normal respiratory effort, no retractions, no use of accessory muscles and clear to auscultation bilaterally Cardio regular rate, regular rhythm, S1 normal heart sound and S2 normal heart sound GI normal to inspection, nondistended, normoactive bowel sounds, soft to palpation, non-tender and non-distended Assessment & Plan Assessment/Plan (1) Acute hepatic encephalopathy: (2) PASQUALE (acute kidney injury): PLAN: 1. Encephalopathy Likely multifactorial Ammonia slightly elevated so the component of [place] cephalopathy Continue with the lactulose as well as rifaximin still groggy. 2. Acute kidney injury Baseline creatinine is 0.54, today at 1.89 Will hold Lasix as well as spironolactone and give the patient 500 cc of saline. Unclear if this is prerenal versus hepatorenal 3. Cirrhosis MELD 22 Poor prognosis. Patient not a candidate for liver transplant as he still actively drinking. 4. VTE prophylaxis with SCDs. 5. Prognosis: Poor. Try to clarify CODE STATUS with the patient but he is too groggy to provide an adequate history at this time. Patient has previously been full code as outpatient and he will continue to remain full code at this time until he can definitively tell us otherwise. Patient's chance for any successful recovery from CPR is abysmal to nil. When the patient is more alert will need to formally discuss CODE STATUS with him. If patient cannot state that he would consent to being DNR Comfort Care arrest at the minimum then could facilitate the patient going possibly to the inpatient hospice unit. Still wants to be full code. Advised pt that if he is full code, he will need to go to SNF. Charges/Coding Visit Charges Inpatient E&M: 72742 Subs Hosp L2
[2021-05-24 14:50] VITALS: BP 104/61; PULSE 84; RESP 16; TEMP 36.9; O2SAT 98
[2021-05-24] MEDS: rifAXIMin 550 MG Tablet PO ×2 (14:54→21:41)
[2021-05-24 19:49] LABS: Magnesium 1.6 mg/dL (1.6-2.6); Phosphorus 3.8 mg/dL (2.5-4.9)
[2021-05-24 20:30] VITALS: BP 100/66; PULSE 90; RESP 18; TEMP 37.1; O2SAT 94
[2021-05-24] MEDS: Potassium Chloride 10mEq/100mL 10 MEQ/100 ML IV.SOLN. 100 MEQ IV BOLUS (20:40)
[2021-05-24] MEDS: Mirtazapine 15 MG Tablet 45 MG PO (20:54)
[2021-05-24] MEDS: Atorvastatin Calcium 40 MG Tablet PO (20:54)
[2021-05-25] MEDS: Potassium Chloride 10mEq/100mL 10 MEQ/100 ML IV.SOLN. 25 MEQ IV BOLUS (00:21)
[2021-05-25] MEDS: 0.9% Saline Lock 10 ML Syringe IV ×2 (00:22→04:59)
[2021-05-25] MEDS: Potassium Chloride 10mEq/100mL 10 MEQ/100 ML IV.SOLN. 100 MEQ IV BOLUS ×2 (00:48→02:01)
[2021-05-25 02:31] VITALS: BP 99/68; PULSE 91; RESP 18; TEMP 37.5; O2SAT 93
[2021-05-25] MEDS: Menthol/Lanolin/Calamine/Znox 113 GM Tube 1 APPLIC TOPICAL (04:49)
[2021-05-25 09:10] VITALS: BP 108/74; PULSE 98; RESP 18; TEMP 36.7; O2SAT 100
[2021-05-25] MEDS: Folic Acid 1 MG Tablet PO (09:12)
[2021-05-25] MEDS: Lactulose 20 GM/30 ML UDC 10 GM PO (09:13)
[2021-05-25] MEDS: Thiamine Hydrochloride 100 MG Tablet PO (09:13)
[2021-05-25] MEDS: Furosemide 40 MG Tablet PO (09:16)
[2021-05-25] MEDS: Magnesium Chloride 64 MG Delay Rel.Tablet 128 MG PO (09:16)
[2021-05-25] MEDS: Citalopram 20 MG Tablet PO (09:17)
[2021-05-25] MEDS: rifAXIMin 550 MG Tablet PO (10:50)
[2021-05-25] MEDS: levETIRAcetam 500 MG Tablet PO (10:51)
[2021-05-25] MEDS: Multivitamins,Therapeutic Tablet 1 TABLET PO (10:52)
--- NOTE | 2021-05-25 11:32 | PCM.PN.HOSP ---
Subjective Subjective Wants to go home. Objective Data Objective Data Vital Signs: Vital Signs Temp Pulse Resp BP Pulse Ox 36.7 C 98 18 108/74 100 05/25/21 09:10 05/25/21 09:10 05/25/21 09:10 05/25/21 09:10 05/25/21 09:10 Oxygen Delivery Method Room Air Weight: 78.2 kg Body Mass Index (BMI) 24.1 Intake & Output: Intake and Output for Last 24 Hours 05/23/21 05/24/21 05/25/21 23:59 23:59 23:59 Intake Total 1704.00 / 1704.00 230 / 230 Output Total 300 / 300 400 / 400 Balance 1404.00 / 1404.00 -170 / -170 Medical Nutrition Assessment Dietitian: Nutrition Therapy Diagnosis Start: 05/23/21 16:59 Freq: Status: Active Protocol: Document 05/23/21 17:48 RMA (Rec: 05/23/21 17:49 RMA [id number]) Nutrition Malnutrition Evidence of Malnutrition Exists Yes Malnutrition (severe): Chronic Evidenced By Suboptimal Energy Intake ( Severe),Weight Loss (Severe) Clinical Problem Chronic Disease or Condition Related Malnutrition Etiology Severe protein-calorie malnutrition in the context of chronic disease related to increased energy expenditure and ongoing inadequate energy intake Signs/Symptoms as evidenced by alcohol abuse, wt loss~8-10% x 2 months and PO meeting less than 50% estimated nutrition needs x past 2 months Status Active Problem Recommendation Dietitian Recommendations/Changes Continue regular diet as PO established--restrict sodium/ fluid/protein as needed once intake established w/ meals. Will offer ensure pudding TID w/ meals as tolerated. Lab / Micro Data Result Diagrams: 05/23/21 14:12 05/24/21 04:50 Labs: Laboratory Results - last 24 hr 05/24/21 04:50: Phosphorus 3.8, Magnesium 1.6 Physical Exam Const alert HEENT head/scalp atraumatic and moist oral mucous membranes Head and Scalp: normocephalic Resp normal respiratory effort, no retractions, no use of accessory muscles and clear to auscultation bilaterally Cardio regular rate, regular rhythm, S1 normal heart sound and S2 normal heart sound GI normal to inspection, nondistended, normoactive bowel sounds, soft to palpation and non-tender GI Narrative: Distended but not taut Extremity normal to inspection Assessment & Plan Assessment/Plan (1) Acute hepatic encephalopathy: (2) PASQUALE (acute kidney injury): PLAN: 1. Encephalopathy Likely multifactorial Ammonia slightly elevated so the component of hepatic encephalopathy Continue with the lactulose as well as rifaximin still groggy. 2. Acute kidney injury Baseline creatinine is 0.54, today at 1.89 Will hold Lasix as well as spironolactone and give the patient 500 cc of saline. Unclear if this is prerenal versus hepatorenal 3. Cirrhosis MELD 22 Poor prognosis. Patient not a candidate for liver transplant as he still actively drinking. 4. VTE prophylaxis with SCDs. 5. Prognosis: Poor. Discussed with patient about advanced directives again today. Stated that we can care for him as long as he is full code but I told him that his life expectancy is 6 to 12months unit under the best of circumstances. I again encouraged hospice and to change his CODE STATUS. He was more alert today and he wishes to be DNR Comfort Care arrest and is consenting to hospice at this time. Charges/Coding Visit Charges Inpatient E&M: 97010 Subs Hosp L2
--- NOTE | 2021-05-25 12:33 | CASEMGMT ---
WILD Note Referral Source: RN CM Referral Reason: Patient had indicated he was open to hospice and Inpatient hospice referral WILD called Adele at Hospice and made referral for patient. She advised that Thong from Hospice would be over shortly. WILD went to talk to patient. WILD introduced self. Patient had said I only trust social workers to the RN. WILD explained that the authorities had been called regarding the dogs and the seeing eye dog teacher was involved. Patient stated I want to go home and take care of my dogs. WILD had explained that as patient was at the hospital they dogs had been secured by the Comb Setter. As this health science writer was attempting to explain this to patient the [facility] Comb Setter came into the room and explained the process of the dogs being placed at the [facility]. SW went back to the patient's room however, he was working with PT/OT. SW went back to the room and patient had stated that you guys don't care.. nobody cares and that you all don't care and stated that he was leaving to go get his dogs. WILD asked patient what the Comb Setter had stated and he said that the dogs are at the pound and he is going to get the dogs. WILD explained that this morning patient had stated that he was willing to go to inpatient hospice and patient said I thought it was in the house and repeatedly stated he wanted to go home. WILD met with Thong from Hospice. She attempted to call patient's casemanager from [facility] Diana but could not get in touch with her. Thong met with patient. Plan: Continue to assess and evaluate. Inessa MERCHANT
--- NOTE | 2021-05-25 13:14 | CASEMGMT ---
Thong from [facility] said that patient will not be eligible for [facility] IP unit. Thong said that patient is concerned about losing his house. WILD explained that as patient is on medicaid HMO his case would be turned over to benefit recovery at his . WILD explained that at this time patient is his own guardian and can make decisions but if that would change then patient has guardian. Thong asked if patient could be placed at SNF. WILD advised that patient has been referred to [facility] however, if [facility] is waiting on precert from the insurance. Thong was going to update patient. Thong called this instructional writer again. Thong said that patient reports he is going home. He does not have a cane but thought the hospital would give him one. Thong said that patient was brought a cup of coffee and said I will take this but I would rather have a beer. Plan; To be continued Inessa MERCHANT
--- NOTE | 2021-05-25 16:38 | CM.ED ---
Addendum entered by Inessa Vasquez 05/25/21 19:37: WILD updated Stephie Camarena and WILD Camarena about this situation. WILD spoke to Lyla at [facility] and she agreed to do a welfare check on Thursday for patient and to follow up with sending a message to patient's outpatient case manager, Diana. Inessa MERCHANT Original Note: WILD Note: WILD was advised by CECE SMITH that patient is leaving AMA. WILD was advised by Walter Bolden RN that patient is leaving AMA. He called a tax to take him home. WILD called Officer Jeffrey at [facility] to see about a welfare check. Officer Jeffrey indicated he would call dispatch to get a welfare check. WILD called Silvestre at [facility]. WILD left message for Silvestre advising that on this date patient signed out from the hospital AMA. WILD called [facility] and left voice mail for them to contact this automobile service writer. Plan: APS is involved due to concern about patient's being able to care for himself. WILD remains available if needs arise. Inessa MERCHANT
--- NOTE | 2021-05-25 21:42 | CM.ED ---
SW Note Sam Murphy from [facility] stated he had done a welfare check for patient. He said that patient and his neighbor were sitting in the living room and eating and watching the [employer]. Officer Jeffrey reported that patient had food, water and was with neighbor, who reportedly was on hospice. Patient said on Thursday he is going to get my dog back. No concerns or issues were noted by Sam Murphy. Inessa MERCHANT
--- NOTE | 2021-05-26 07:56 | PCM.DC.SUM ---
Providers Date of Admission: 05/23/21 Primary Care Physician: [facility] Consultations 05/25/21 10:51 Consult: Hospice / Palliative Care Routine Consulting Provider: [facility] Reason for Consult: hospice EMERGENT Consult: No MD Notified: Yes Date Notified: 05/25/21 Time Notified: 10:51 Method of Notification: Verbal Method of Consult:: In-Person Comments:: talked with hospice in person when they came to see pt Reason For Visit: ENCEPHALOPATHY Diagnosis Discharge Diagnosis (1) Acute hepatic encephalopathy: Status: Acute Code(s): K72.00 - Acute and subacute hepatic failure without coma (2) PASQUALE (acute kidney injury): Status: Acute Code(s): N17.9 - Acute kidney failure, unspecified Medications at Discharge Home Medications atorvastatin 40 mg PO QHS 03/26/20 citalopram 20 mg PO DAILY 12/07/20 cetirizine 10 mg PO DAILY PRN PRN #0 12/14/20 mirtazapine 45 mg PO QHS 03/22/21 quetiapine [Seroquel] 300 mg PO QHS 03/22/21 thiamine HCl (vitamin B1) [Vitamin B-1] 100 mg PO DAILY 03/22/21 cholecalciferol (vitamin D3) 1,250 mcg PO MO 03/25/21 furosemide [Lasix] 20 mg PO DAILY 03/25/21 levetiracetam 500 mg PO BID 03/25/21 magnesium oxide 400 mg PO DAILY 03/25/21 multivitamin 1 tab PO DAILY 03/25/21 lactulose 10 g PO DAILY 04/09/21 hydromorphone 1 mg PO Q2H PRN 05/23/21 hydromorphone 2 mg PO BID 05/23/21 lorazepam 0.5 mg PO Q6H PRN 05/23/21 metoprolol succinate 25 mg PO DAILY 05/23/21 potassium chloride 20 meq PO DAILY 05/23/21 spironolactone 12.5 mg PO DAILY 05/23/21 Hospital Course Summary of Care Provided Minutes Spent on Discharge: 32 Hospital Course: Patient came in because he is unable to care for himself. Patient was very somnolent in the emergency room. Hospice was present in the emergency room and tried to get a CODE STATUS from patient as patient had previously been full code. If patient would have consented to no CPR and least being DNR Comfort Care arrest could have had hospice arranged through the emergency room at home even. He was too groggy to provide any reliable history. The same the next day. On the seventh, patient was much more alert and did discuss with the patient that his body is declining, with the cirrhosis and worsening kidney function his life expectancy would be 6 to 12months. Expect probably more the former. I told the patient that with this decline that he is hospice appropriate. Told him that if he wants CPR we can try but the likelihood of his survival is extremely low. He was much more understanding and agreed to DNR Comfort Care arrest. Patient was evaluated by hospice but given he has no acute issues it was not appropriate for the inpatient unit. Told the patient that given his inability to care for himself and his frequent hospitalizations that he may benefit from going to a SNF. He declined that and wanted to go home. Told the patient that if he is going home that he be leaving his medical advice. Told him if he goes home that he could fall and injure himself any fractures or head injury etc. He expressed understanding and still insisted to leave AGAINST MEDICAL ADVICE. Weight / BMI Weight Weight: 78.2 kg Body Mass Index (BMI) 24.1 ABG / Lab / Microbiology Data Result Diagrams: 05/23/21 14:12 05/24/21 04:50 Meaningful Use Info Meaningful Use Diagnoses (Choose all that apply): None applicable Discharge Plan Admission Admit Date/Time: 05/23/21 15:43 Attending Provider: Chapin Simpson [facility] Providers: Deloris Sal ; Chris Mccollum ; Johanne Smith ; Hui Grey ; Adenike Lin ; Anel Brumfield PLAN CHECKER Discharge Orders/Prescriptions Prescriptions: No Action atorvastatin 40 MG tablet 40 mg PO QHS RF: 0 citalopram 20 MG tablet 20 mg PO DAILY RF: 0 cetirizine 10 MG tablet 10 mg PO DAILY PRN PRN (Reason: Allergies) Qty: 0 RF: 0 quetiapine [Seroquel] 300 mg Tablet 300 mg PO QHS RF: 0 thiamine HCl (vitamin B1) [Vitamin B-1] 100 mg Tablet 100 mg PO DAILY RF: 0 mirtazapine 45 mg tablet 45 mg PO QHS RF: 0 magnesium oxide 400 mg magnesium Tablet 400 mg PO DAILY RF: 0 multivitamin 1 EACH tablet 1 tab PO DAILY RF: 0 furosemide [Lasix] 40 mg tablet 20 mg PO DAILY RF: 0 cholecalciferol (vitamin D3) 1,250 mcg (50,000 unit) Capsule 1,250 mcg PO MO RF: 0 levetiracetam 500 mg tablet 500 mg PO BID RF: 0 lactulose 10 gram/15 mL (15 mL) solution 10 g PO DAILY RF: 0 hydromorphone 2 mg tablet 2 mg PO BID RF: 0 hydromorphone 2 mg tablet 1 mg PO Q2H PRN (Reason: Pain) RF: 0 potassium chloride 20 mEq tablet,ER particles/crystals 20 meq PO DAILY RF: 0 lorazepam 0.5 mg tablet 0.5 mg PO Q6H PRN (Reason: SOB/ANXIETY) RF: 0 metoprolol succinate 25 mg tablet extended release 24 hr 25 mg PO DAILY RF: 0 spironolactone 25 mg tablet 12.5 mg PO DAILY RF: 0 [facility] - Disposition Disposition (needs filled in before D/C Order can be placed): Against Medical Advice Charges/Coding Visit Charges Inpatient E&M: 03624 Disch Hosp
--- NOTE | 2021-05-27 13:35 | CASEMGMT ---
SOCIAL WORK Received call from Silvestre with Adult [employer]ctive Services this morning requesting update. Silvestre informed patient signed out AMA. All questions answered. Tramaine Soto MSW, [employer]
== END 2021-05-25 16:32 | disposition left against medical advice (07) | DRG 682 ==
LOC: ED 15:24 → MS3 15:50
PROVIDERS: Internal Medicine; Emergency Provider Emergency Medicine
DX: N17.9 Acute kidney failure, unspecified (principal); K72.00 Acute and subacute hepatic failure without coma; R18.8 Other ascites; F17.210 Nicotine dependence, cigarettes, uncomplicated; K74.60 Unspecified cirrhosis of liver
CPT/HCPCS: 36415; 70450; 71045; 76705; 80053; 82077; 82140; 83735; 84100; 84484; 85025; 85610; 93005; 97162; 97166; 97802; 99285; 99406; J7030; A4216

== ENCOUNTER → 2021-05-28 12:18 | Outpatient (CLI) | payer MEDICARE, MEDICAID, SELFPAY ==
[2021-05-23 16:35] VITALS: BMI 24.1
--- NOTE | 2021-05-28 12:21 | US_ITS ---
PROCEDURE: Ultrasound guided paracentesis. DATE OF EXAMINATION: 05/28/2021. INDICATION: Male, 60 years old. Ascites. PHYSICIAN: Emmanuel Craig M.D. TECHNIQUE: The risks, benefits, and alternatives to the procedure were explained to the patient. The specific risks of bleeding, infection, and damage to bowel were detailed and accepted. Witnessed informed consent was obtained. The abdomen was ultrasonographically surveyed. An appropriate pocket of fluid was identified at the right lower quadrant. The skin were cleaned and prepped in the usual sterile fashion. Using ultrasound guidance, the peritoneal cavity was accessed with a 5-Austrian paracentesis needle/catheter system. The trocar was removed. A total of 3650 ml of clovis-colored fluid were removed from the peritoneal cavity. The catheter was removed and a sterile dressing was applied. The procedure was well tolerated. US/Paracentesis with US IMPRESSION: Ultrasound guided paracentesis. Electronically Signed: Emmanuel Craig MD at 13:32 EDT , Service support ,
[2021-05-28 12:49] VITALS: BP 102/63; BP 81/61; BP 92/64; PULSE 74; PULSE 78; PULSE 79; RESP 16; RESP 18; O2SAT 100; O2SAT 98; O2SAT 99
== END ==
PROVIDERS: Referring Provider Nurse Practitioner Adult Health; Visit Provider Nurse Practitioner Adult Health
DX: R18.8 Other ascites (principal)
CPT/HCPCS: 49083

== ENCOUNTER → 2021-06-11 12:30 | Outpatient (CLI) | payer MEDICARE, MEDICAID, SELFPAY ==
--- NOTE | 2021-06-11 12:33 | US_ITS ---
PROCEDURE: Ultrasound guided paracentesis. DATE OF EXAMINATION: 06/11/2021. INDICATION: Male, 60 years old. Ascites. PHYSICIAN: Emmanuel Craig M.D. TECHNIQUE: The risks, benefits, and alternatives to the procedure were explained to the patient. The specific risks of bleeding, infection, and damage to bowel were detailed and accepted. Witnessed informed consent was obtained. The abdomen was ultrasonographically surveyed. An appropriate pocket of fluid was identified at the right lower quadrant. The skin were cleaned and prepped in the usual sterile fashion. Using ultrasound guidance, the peritoneal cavity was accessed with a 5-[place] Island[place] paracentesis needle/catheter system. The trocar was removed. A total of 3100 ml of clovis-colored fluid were removed from the peritoneal cavity. The catheter was removed and a sterile dressing was applied. The procedure was well tolerated. US/Paracentesis with US IMPRESSION: Ultrasound guided paracentesis. Electronically Signed: Emmanuel Craig MD at 13:44 EDT , Service support ,
[2021-06-11 12:46] VITALS: BP 103/60; BP 123/70; BP 96/58; PULSE 80; PULSE 85; RESP 12; RESP 14; TEMP 36.4; O2SAT 100
[2021-06-11] MEDS: Lidocaine 2% (20 ml mdv) 20 ML Vial INFILT (12:55)
== END ==
PROVIDERS: Referring Provider Nurse Practitioner Adult Health; Visit Provider Nurse Practitioner Adult Health
DX: R18.8 Other ascites (principal)
CPT/HCPCS: 49083